=== PATIENT | female | born 1940 | race Caucasian/White ===

== ENCOUNTER → 2017-09-04 | Outpatient (CLI) | payer MEDICARE, BC ==
--- NOTE | 2017-09-04 13:26 | ECHOF ---
Referral Reason:Aortic Stenosis I35.0 MEASUREMENTS -------- HEIGHT: 154.9 cm WEIGHT: 95.3 kg BP: 173/75 RVIDd: 3.5 cm (< 3.3) IVSd: 1.4 cm (0.6 - 1.1) LVIDd: 3.6 cm (3.9 - 5.3) LVPWd: 1.4 cm (0.6 - 1.1) IVSs: 1.6 cm LVIDs: 2.7 cm LVPWs: 1.8 cm LA Diam: 3.4 cm (2.7 - 3.8) LAESV Index (A-L): 23.45 ml/m Ao Diam: 3.3 cm (2.0 - 3.7) AV Cusp: 1.2 cm (1.5 - 2.6) MV EXCURSION: 10.738 mm (> 18.000) MV EF SLOPE: 16 mm/s (70 - 150) EPSS: 0.9 cm MV E Tod: 0.73 m/s MV DecT: 504 ms MV A Tod: 1.23 m/s MV E/A Ratio: 0.59 AV maxP.47 mmHg AV meanP.77 mmHg RAP: 5.00 mmHg RVSP: 23.43 mmHg FINDINGS -------- Sinus rhythm. This was a technically adequate study. The left ventricular size is normal. There is moderate concentric left ventricular hypertrophy. O verall left ventricular systolic function is normal with, an EF between 55 - 60 %. The right ventricle is mildly enlarged. Normal LA size by volume 22+/-6 ml/m2. The right atrium is normal in size. There is moderate aortic valve sclerosis. There is moderate aortic stenosis present. Peak/mean gr adient across the Aortic Valve is 35.47mmHg / 19.77mmHg. The mitral valve leaflets are mildly thickened. Moderate mitral annular calcification present. Mild tricuspid regurgitation present. Right ventricular systolic pressure is normal at < 35 mmHg. There is no pulmonic regurgitation present. The aortic root size is normal. Normal inferior vena cava with normal inspiratory collapse consistent with estimated right atrial pre ssure of 5 mmHg. There is no pericardial effusion. CONCLUSIONS -------- 1. Sinus rhythm. 2. This was a technically adequate study. 3. The left ventricular size is normal. 4. There is moderate concentric left ventricular hypertrophy. 5. Overall left ventricular systolic function is normal with, an EF between 55 - 60 %. 6. The right ventricle is mildly enlarged. 7. Normal LA size by volume 22+/-6 ml/m2. 8. The right atrium is normal in size. 9. There is moderate aortic valve sclerosis. 10. There is moderate aortic stenosis present. 11. Peak/mean gradient across the Aortic Valve is 35.47mmHg / 19.77mmHg. 12. The mitral valve leaflets are mildly thickened. 13. Moderate mitral annular calcification present. 14. Mild tricuspid regurgitation present. 15. Right ventricular systolic pressure is normal at < 35 mmHg. 16. There is no pulmonic regurgitation present. 17. The aortic root size is normal. 18. Normal inferior vena cava with normal inspiratory collapse consistent with estimated right atrial pressure of 5 mmHg. 19. There is no pericardial effusion. CLOTHING EXAMINER: Pooja Clayton RDCS
== END | disposition home or self-care (01) ==
LOC: RADECHMAIN 11:44
PROVIDERS: ATTEND Nurse Practitioner Adult Health
DX: I08.3 Combined rheumatic disorders of mitral, aortic and tricuspid valves (principal)
CPT/HCPCS: 93306

== ENCOUNTER → 2018-10-29 | Outpatient (CLI) | payer MEDICARE, BC ==
--- NOTE | 2018-10-30 17:59 | ECHOF ---
Referral Reason:I35.0 nonrheumatic aortic stenosis MEASUREMENTS -------- HEIGHT: 154.9 cm WEIGHT: 95.3 kg BP: 125/75 RVIDd: 2.9 cm (< 3.3) IVSd: 1.4 cm (0.6 - 1.1) LVIDd: 4.2 cm (3.9 - 5.3) LVPWd: 1.4 cm (0.6 - 1.1) IVSs: 1.8 cm LVIDs: 3.0 cm LVPWs: 1.6 cm LA Diam: 3.2 cm (2.7 - 3.8) LAESV Index (A-L): 31.37 ml/m Ao Diam: 3.4 cm (2.0 - 3.7) AV Cusp: 1.2 cm (1.5 - 2.6) EPSS: 0.7 cm MV E Tod: 1.17 m/s MV DecT: 298 ms MV A Tod: 1.47 m/s MV E/A Ratio: 0.79 AV maxP.48 mmHg AV meanP.59 mmHg RAP: 5.00 mmHg RVSP: 43.00 mmHg MV EF SLOPE: 16.60 mm/s (70 - 150) MV EXCURSION: 0.98 cm (> 18.000) FINDINGS -------- Sinus rhythm. This was a technically adequate study. The left ventricular size is normal. There is moderate concentric left ventricular hypertrophy. O verall left ventricular systolic function is normal with, an EF between 60 - 65 %. The right ventricle is normal in size. Left atrium is mildly dilated by volume. The right atrium is normal in size and function. Aneurysmal septum Aortic valve is trileaflet and is moderately thickened. There is aqtsahlx-vs-zrujum aortic stenosis present. Peak/mean gradient across the valve is 62.48mmHg / 39.59mmHg. The mitral valve leaflets are mildly thickened. Moderate mitral annular calcification present. Mi ld mitral regurgitation is present. Mild tricuspid regurgitation present. There is mild pulmonary hypertension. The right ventricular systolic pressure, as measured by Doppler, is 43.00mmHg. Trace/mild (physiologic) pulmonic regurgitation. The aortic root size is normal. The inferior vena cava was not well visualized. The pericardium is normal. CONCLUSIONS -------- 1. Sinus rhythm. 2. This was a technically adequate study. 3. The left ventricular size is normal. 4. There is moderate concentric left ventricular hypertrophy. 5. Overall left ventricular systolic function is normal with, an EF between 60 - 65 %. 6. The right ventricle is normal in size. 7. Left atrium is mildly dilated by volume. 8. The right atrium is normal in size and function. 9. Aneurysmal septum 10. Aortic valve is trileaflet and is moderately thickened. 11. There is qidompmf-va-koaaiu aortic stenosis present. 12. Peak/mean gradient across the valve is 62.48mmHg / 39.59mmHg. 13. The mitral valve leaflets are mildly thickened. 14. Moderate mitral annular calcification present. 15. Mild mitral regurgitation is present. 16. Mild tricuspid regurgitation present. 17. There is mild pulmonary hypertension. 18. The right ventricular systolic pressure, as measured by Doppler, is 43.00mmHg. 19. Trace/mild (physiologic) pulmonic regurgitation. 20. The aortic root size is normal. 21. The inferior vena cava was not well visualized. 22. The pericardium is normal. AUTOMOTIVE LIGHT MECHANIC: ARPIT Mcdonnell
== END | disposition home or self-care (01) ==
LOC: RADECHMAIN 12:46
PROVIDERS: ATTEND Internal Medicine
DX: I08.3 Combined rheumatic disorders of mitral, aortic and tricuspid valves (principal); I27.20 Pulmonary hypertension, unspecified
CPT/HCPCS: 93306

== ENCOUNTER → 2020-08-21 | Outpatient (CLI) | payer MEDICARE, BC ==
--- NOTE | 2020-08-21 09:47 | CT ---
EXAMINATION TYPE: CT chest wo con DATE OF EXAM: 08/21/2020 COMPARISON: Comparison films are not available at this location. HISTORY: Pulmonary nodules CT DLP: 420.70 mGycm, Automated exposure control for dose reduction was used. CONTRAST: Performed injected with 0 mL of Isovue 300. TECHNIQUE: Axial images were obtained at 5 mm thick sections. Reconstructed images are reviewed on [employer] computer in the coronal plane. FINDINGS: Portion of the thyroid visualized is normal. There is a 0.8 cm nodule in the posterior lateral left lung base. Series 4 image 37. There is a 0.4 cm posterior lateral left lung base nodule. Series 4 image 33. There is a 0.3 cm nodule lateral right midlung. Series 4 image 22 and additional 0.3 cm nodules in th e posterior lateral right lung base same level. There is a 0.3 cm nodule within the lateral right midlung. Series 4 image 21. There is a 0.5 cm nodule lateral left upper lung field. Series 4 image 20. No enlarged mediastinal or hilar adenopathy is evident. The ascending aorta diameter at the level o f the main pulmonary artery is 4.0 cm. The main pulmonary artery diameter at the bifurcation is 3.2 cm. Coronary artery calcification is present. Prior cardiac valve surgery is evident. Limited CT sections are obtained through the upper abdomen. Abdomen is essentially unremarkable. IMPRESSIONS: 1. Multiple bilateral lung nodules. Largest left lung base measuring 0.8 cm. Comparison images are un available to evaluate for interval change nodules.
== END | disposition home or self-care (01) ==
LOC: RADCTMAIN 08:21
PROVIDERS: ATTEND Nurse Practitioner Adult Health
DX: R91.8 Other nonspecific abnormal finding of lung field (principal)
CPT/HCPCS: 71250

== ENCOUNTER → 2021-01-13 | Outpatient (CLI) | payer MEDICARE, BC ==
--- NOTE | 2021-01-13 12:43 | MR ---
EXAMINATION TYPE: MR lumbar spine wo con DATE OF EXAM: 01/13/2021 COMPARISON: NONE HISTORY: LBP, BLE radiculopathy. TECHNIQUE: Multiplanar, multisequence imaging of the lumbar spine is performed without IV contrast. FINDINGS: Sagittal images of the lumbar spine show vertebral body heights to appear satisfactory. The re is grade 1 anterolisthesis L4 on L5. Multilevel disc desiccation. Disc space heights are maintain ed. Fairly moderate multilevel anterior spurring. The conus medullaris is normal in position and sign al extending inferior L1 level. The bone marrow signal intensity is within normal limits. Axial images at T12-L1 levels show broad-based left paracentral disc extrusion extending inferiorly s een best sagittal image 8 up to mid level of the L1 vertebra effacing the anterior thecal sac., Paten t bilateral neural foramina. Axial images at the L1-L2 level show right paracentral/foraminal broad-based disc protrusion with sma ller inferior extrusion component sagittal image 8, this is causing effacement of the anterolateral t hecal sac and right lateral recess. Mild to moderate facet arthropathy and ligament of flavum hypertr ophy bilaterally placing posterior lateral thecal sac. Patent bilateral neural foramina. Axial images at the L2-L3 level show mild to moderate facet arthropathy and ligamentum flavum hypertr ophy. There is mild broad disc bulge with right paracentral disc protrusion component effacing anteri or thecal sac, patent bilateral neural foramina. Axial images at the L3-L4 level shows moderate facet degenerative changes and ligamentum flavum hyper trophy effacing posterolateral thecal sac. There is moderate broad disc bulge with central disc protr usion component effacing the anterior thecal sac. There is dbmz-gp-scxcywyr bilateral neural foramina l narrowing. Axial images at the L4-L5 level show advanced facet arthropathy and ligament flavum hypertrophy effac ing posterior lateral thecal sac. There is spondylolisthesis with broad-based posterior disc protrusi on effacing the anterior thecal sac. Most prominent spinal canal effacement or stenosis is seen at th is level axial image 10. There is mild to moderate bilateral neural foraminal narrowing. Axial images at the L5-S1 level show mild/moderate facet arthropathy bilaterally. Spinal canal is pre served. Mild bilateral neural foraminal narrowing due to mild broad disc bulge. No suspicious retroperitoneal findings. IMPRESSION: Multilevel degenerative changes greatest at L3-L4 and L4-L5 levels as detailed above. Inf erior disc extrusion right T12-L1 level also noted.
== END | disposition home or self-care (01) ==
LOC: RADMRIMAIN 11:20
PROVIDERS: ATTEND Neurological Surgery
DX: M51.16 Intervertebral disc disorders with radiculopathy, lumbar region (principal); M47.26 Other spondylosis with radiculopathy, lumbar region
CPT/HCPCS: 72148

== ENCOUNTER → 2021-04-10 | Outpatient (CLI) | payer MEDICARE, BC ==
[2021-04-10 19:11] LABS: Phosphorus 4.3 mg/dL (2.4-5.1)
[2021-04-10 19:12] LABS: Anion Gap 11.7 mmol/L (10.00-18.00); BUN/Creat Ratio 24.47 Ratio (12.00-20.00); Blood Urea Nitrogen 36.7 mg/dL (9.0-27.0); Calcium 9.3 mg/dL (8.7-10.3); Carbon Dioxide 25.3 mmol/L (20.0-27.5); Magnesium 2.2 mg/dL (1.5-2.4); Non-African American GFR(CKD) 32.8 (60.0-200.0); Potassium 5.1 mmol/L (3.5-5.5)
== END | disposition home or self-care (01) ==
LOC: LABWHC1 12:57
PROVIDERS: ATTEND Nurse Practitioner Acute Care
DX: N17.9 Acute kidney failure, unspecified (principal)
CPT/HCPCS: 36415; 80048; 83735; 84100

== ENCOUNTER → 2021-05-13 | Outpatient (CLI) | payer MEDICARE, BC ==
[2021-05-13 13:06] LABS: Appearance,Urine Turbid (Clear); Bacteria,Urine Many /hpf; Bilirubin,Urine Negative (Negative); Blood,Urine Moderate (Negative); Color,Urine Yellow; Glucose,Urine (UA) Negative (Negative); Ketones,Urine Negative (Negative); Leukocyte Esterase,Urine Large (Negative); Mucus,Urine Occasional /hpf; Nitrite,Urine Negative (Negative); PH, Urine 5.5 (5.0-8.0); Protein,Urine 2+ (Negative); RBC,Urine 16 /hpf (0-5); Urobilinogen,Urine <2.0 mg/dL (<2.0); WBC,Urine >182 /hpf (0-5)
[2021-05-13 13:09] LABS: Specific Gravity,Urine 1.015 (1.001-1.035)
[2021-05-13 14:45] LABS: Basophils # (A) 0.12 X 10*3/uL (0.00-0.10); Eosinophils # (A) 0.04 X 10*3/uL (0.04-0.35); Eosinophils % (A) 0.3 %; HCT 29.7 % (37.2-46.3); Lymphocytes # (A) 1.76 X 10*3/uL (0.90-5.00); MCH 29.8 pg (27.0-32.0); MCHC 30.3 g/dL (32.0-37.0); MCV 98.3 fL (80.0-97.0); Mean Platelet Volume 11.7 fL (9.5-12.2); Monocytes # (A) 0.78 X 10*3/uL (0.20-1.00); Monocytes % (A) 6.2 %; Neutrophils # (A) 9.68 X 10*3/uL (1.80-7.70); Neutrophils % (A) 77.1 %; Platelet Count 359 X 10*3/uL (140-440); RBC 3.02 X 10*6/uL (4.10-5.20); RDW 16.1 % (11.5-14.5); WBC 12.56 X 10*3/uL (4.50-10.00)
[2021-05-13 15:17] LABS: Creatinine,Urine Random 101.5 mg/dL; Protein/Creatinine Ratio,Urine 1.163
[2021-05-13 16:11] LABS: % Iron Saturation 14.71 (12.00-45.00); Anion Gap 13.1 mmol/L (10.00-18.00); BUN/Creat Ratio 15.47 Ratio (12.00-20.00); Blood Urea Nitrogen 37.9 mg/dL (9.0-27.0); Calcium 9.1 mg/dL (8.7-10.3); Carbon Dioxide 20.9 mmol/L (20.0-27.5); Magnesium 2.2 mg/dL (1.5-2.4); Non-African American GFR(CKD) 18.1 (60.0-200.0); Phosphorus 4.6 mg/dL (2.4-5.1)
== END | disposition home or self-care (01) ==
LOC: LABWHC1 10:48
PROVIDERS: ATTEND Nurse Practitioner Acute Care
DX: E11.22 Type 2 diabetes mellitus with diabetic chronic kidney disease (principal); N39.0 Urinary tract infection, site not specified; R80.9 Proteinuria, unspecified; D64.9 Anemia, unspecified; N18.9 Chronic kidney disease, unspecified; N17.9 Acute kidney failure, unspecified
CPT/HCPCS: 36415; 80048; 81001; 82043; 82570; 82728; 83036; 83540; 83550; 83735; 84100; 84156; 85025; 87086

== ENCOUNTER 2021-06-19 00:14 | Inpatient (IN) | payer MEDICARE, BC ==
[2021-06-19] MEDS ORDERED: SODIUM CHLORIDE 0.9% 1,000 ML IV STA (00:47)
--- NOTE | 2021-06-19 01:31 | ED ---
Weakness HPI - General Chief complaint: Weakness Stated complaint: Weakness Time Seen by Provider: 06/19/21 00:37 Source: patient, EMS Mode of arrival: EMS Limitations: no limitations - History of Present Illness Initial comments: This is a pleasant 81-year-old female who comes to the ER complaining of bilateral leg weakness and generalized weakness. Patient states she went to get up today and just could not get up due to general weakness. Patient states she previously has had some electrolyte abnormalities. Patient also had a urinalysi s which was done 1 week ago. States she was called by the physician told that she had a urinary tract infection. However she has not taken any antibiotics for this. No headache, no fever or chills, no changes in vision or hearing, no sore throat or difficulty with speech, no neck pain, no chest pain or shortness of breath, no abdominal pain, no nausea or vomiting, no changes in urination or bowel movements, no numbness or tingling, no extremity pain, no skin rashes or lesions. Patient states when he she went to get up she sort of slid out of her chair. She denies falling. There was no head or neck injury. No blood thinners. MD Complaint: generalized weakness - Related Data Allergies Allergy/AdvReac Type Severity Reaction Status Date / Time Penicillins Allergy Swelling Verified 06/19/21 01:45 Sulfa (Sulfonamide Allergy Unknown Verified 06/19/21 01:45 Antibiotics) clindamycin AdvReac Nausea & Verified 06/19/21 01:45 Vomiting Review of Systems ROS Statement: Those systems with pertinent positive or pertinent negative responses have been documented in the HPI. ROS Other: All systems not noted in ROS Statement are negative. Past Medical History Past Medical History: Unable to Obtain History of Any Multi-Drug Resistant Organisms: None Reported Past Surgical History: Unable to Obtain Past Psychological History: No Psychological Hx Reported Smoking Status: Never smoker Past Alcohol Use History: None Reported Past Drug Use History: None Reported General Exam - General Exam Comments Initial Comments: Deconditioned appearing 81-year-old female in no significant distress. Patient does not appear to be ill or toxic Limitations: no limitations General appearance: alert, in no apparent distress Head exam: Present: atraumatic, normocephalic, normal inspection Eye exam: Present: normal appearance, PERRL, EOMI. Absent: scleral icterus, c onjunctival injection, periorbital swelling ENT exam: Present: normal exam, mucous membranes moist Neck exam: Present: normal inspection. Absent: tenderness, meningismus, lymphadenopathy Respiratory exam: Present: normal lung sounds bilaterally. Absent: respiratory distress, wheezes, rales, rhonchi, stridor Cardiovascular Exam: Present: regular rate, normal rhythm, normal heart sounds. Absent: systolic murmur, diastolic murmur, rubs, gallop, clicks GI/Abdominal exam: Present: soft, normal bowel sounds. Absent: distended, tenderness, guarding, rebound, rigid Extremities exam: Present: normal inspection, full ROM, normal capillary refill, other (No bony point tenderness. No erythema. No break in skin integrity. Patient does have notable fasciculations involving the quadriceps muscle on the left.). Absent: tenderness, pedal edema, joint swelling, calf tenderness Back exam: Present: normal inspection Neurological exam: Present: alert, oriented X3, CN II-XII intact, other (No focal neurologic deficits. GCS is 15). Absent: altered, motor sensory deficit, reflexes normal Psychiatric exam: Present: normal affect, normal mood. Absent: depressed, agitated, anxious Skin exam: Present: warm, dry, intact, normal color. Absent: rash Course Vital Signs 06/19/21 06/19/21 00:31 01:41 Temperature 98.1 F Pulse Rate 62 60 Respiratory 16 16 Rate Blood Pressure 133/113 122/45 O2 Sat by Pulse 100 99 Oximetry - Reevaluation(s) Reevaluation #1: 06/19/21 03:24 Medical record is reviewed Symptoms are essentially unchanged, EKG shows left bundle-branch block with wide QRS, QTC of 506, potassium was slightly hemolyzed but was 9.0. I did order repeat. Given EKG findings we decided to go ahead and treat the hyperkalemia., Patient also showed evidence of urinary tract infection with acute on chronic renal failure. Patient is informed of results and questions answered Patient in no distress 06/19/21 03:28 EKG Findings - EKG Comments: EKG Findings:: EKG done at 12:24 AM and read by the ED attending physician reveals sinus rhythm with a first-degree AV block. Left axis deviation. Left bundle branch block. Ventricular rate of 62. MI interval 267 ms. QRS duration 218 ms. QTC 506. No evidence of concordance. Medical Decision Making - Medical Decision Making The case was discussed in detail with ED attending physician. Presentation, findings, treatment plan discussed in detail. Patient fondly hyperkalemic. Slight hemolysis but did have EKG changes consistent with hyperkalemia. Discussed with ED attending physician who also assessed the patient. Patient given 7.5 mg of albuterol, 6 units of regular insulin, 1 amp of dextrose 50, 1 g of calcium gluconate. Case was discussed in detail with Dr. Spain the application support consultant. Patient will be admitted to [facility] for ICU admission. - Lab Data Result diagrams: 06/19/21 01:36 06/19/21 01:36 Lab Results 06/19/21 06/19/21 06/19/21 Range/Units 01:36 01:36 01:36 WBC 16.4 H (3.8-10.6) k/uL RBC 2.31 L (3.80-5.40) m/uL Hgb 7.2 L (11.4-16.0) gm/dL Hct 22.8 L (34.0-46.0) % MCV 98.7 (80.0-100.0) fL MCH 31.1 (25.0-35.0) pg MCHC 31.5 (31.0-37.0) g/dL RDW 16.5 H (11.5-15.5) % Plt Count 346 (150-450) k/uL MPV 9.1 Neutrophils % 87 % Lymphocytes % 7 % Monocytes % 4 % Eosinophils % 1 % Basophils % 0 % Neutrophils # 14.2 H (1.3-7.7) k/uL Lymphocytes # 1.2 (1.0-4.8) k/uL Monocytes # 0.6 (0-1.0) k/uL Eosinophils # 0.2 (0-0.7) k/uL Basophils # 0.1 (0-0.2) k/uL Hypochromasia Moderate Anisocytosis Slight Macrocytosis Slight Sodium 135 L (137-145) mmol/L Potassium 9.0 H* (3.5-5.1) mmol/L Chloride 112 H (98-107) mmol/L Carbon Dioxide 13 L (22-30) mmol/L Anion Gap 10 mmol/L BUN 54 H (7-17) mg/dL Creatinine 3.21 H (0.52-1.04) mg/dL Est GFR (CKD-EPI)AfAm 15 (>60 ml/min/1.73 sqM) Est GFR (CKD-EPI)NonAf 13 (>60 ml/min/1.73 sqM) Glucose 65 L (74-99) mg/dL Plasma Lactic Acid Rolly (0.7-2.0) mmol/L Calcium 8.8 (8.4-10.2) mg/dL Phosphorus 4.2 (2.5-4.5) mg/dL Magnesium 1.8 (1.6-2.3) mg/dL Total Bilirubin 0.7 (0.2-1.3) mg/dL AST 33 (14-36) U/L ALT 12 (4-34) U/L Alkaline Phosphatase 82 (38-126) U/L Troponin I (0.000-0.034) ng/mL Total Protein 7.5 (6.3-8.2) g/dL Albumin 3.4 L (3.5-5.0) g/dL TSH 1.080 (0.465-4.680) mIU/L Urine Color Yellow Urine Appearance Turbid H (Clear) Urine pH 5.5 (5.0-8.0) Ur Specific [place] 1.020 (1.001-1.035) Urine Protein 2+ H (Negative) Urine Glucose (UA) Negative (Negative) Urine Ketones Negative (Negative) Urine Blood Moderate H (Negative) Urine Nitrite Negative (Negative) Urine Bilirubin Negative (Negative) Urine Urobilinogen <2.0 (<2.0) mg/dL Ur Leukocyte Esterase Large H (Negative) Urine RBC 27 H (0-5) /hpf Urine WBC >182 H (0-5) /hpf Urine WBC Clumps Moderate H (None) /hpf Ur Squamous Epith Cells 3 (0-4) /hpf Urine Bacteria Occasional H (None) /hpf 06/19/21 06/19/21 Range/Units 01:36 01:36 WBC (3.8-10.6) k/uL RBC (3.80-5.40) m/uL Hgb (11.4-16.0) gm/dL Hct (34.0-46.0) % MCV (80.0-100.0) fL MCH (25.0-35.0) pg MCHC (31.0-37.0) g/dL RDW (11.5-15.5) % Plt Count (150-450) k/uL MPV Neutrophils % % Lymphocytes % % Monocytes % % Eosinophils % % Basophils % % Neutrophils # (1.3-7.7) k/uL Lymphocytes # (1.0-4.8) k/uL Monocytes # (0-1.0) k/uL Eosinophils # (0-0.7) k/uL Basophils # (0-0.2) k/uL Hypochromasia Anisocytosis Macrocytosis Sodium (137-145) mmol/L Potassium (3.5-5.1) mmol/L Chloride (98-107) mmol/L Carbon Dioxide (22-30) mmol/L Anion Gap mmol/L BUN (7-17) mg/dL Creatinine (0.52-1.04) mg/dL Est GFR (CKD-EPI)AfAm (>60 ml/min/1.73 sqM) Est GFR (CKD-EPI)NonAf (>60 ml/min/1.73 sqM) Glucose (74-99) mg/dL Plasma Lactic Acid Rolly 1.2 (0.7-2.0) mmol/L Calcium (8.4-10.2) mg/dL Phosphorus (2.5-4.5) mg/dL Magnesium (1.6-2.3) mg/dL Total Bilirubin (0.2-1.3) mg/dL AST (14-36) U/L ALT (4-34) U/L Alkaline Phosphatase (38-126) U/L Troponin I <0.012 (0.000-0.034) ng/mL Total Protein (6.3-8.2) g/dL Albumin (3.5-5.0) g/dL TSH (0.465-4.680) mIU/L Urine Color Urine Appearance (Clear) Urine pH (5.0-8.0) Ur Specific [place] (1.001-1.035) Urine Protein (Negative) Urine Glucose (UA) (Negative) Urine Ketones (Negative) Urine Blood (Negative) Urine Nitrite (Negative) Urine Bilirubin (Negative) Urine Urobilinogen (<2.0) mg/dL Ur Leukocyte Esterase (Negative) Urine RBC (0-5) /hpf Urine WBC (0-5) /hpf Urine WBC Clumps (None) /hpf Ur Squamous Epith Cells (0-4) /hpf Urine Bacteria (None) /hpf Critical Care Time Critical Care Time: Yes (40) Critical Care Time: Evaluation of the patient, multiple re-evaluations, response to treatments. Evaluation diagnostics. Discussion with ED attending physician, discussion with the ICU application support consultant, discussion with sound physician group. Multiple interventions for hyperkalemia, urinary tract infection Disposition Clinical Impression: Acute hyperkalemia, Generalized weakness, Urinary tract infection, Acute kidney injury Disposition: ADMITTED IP TO THIS HOSP Referrals: Basia Chinchilla, KERLINE [Primary Care Provider] - 1-2 days Time of Disposition: 03:26
--- NOTE | 2021-06-19 01:48 | XR ---
EXAMINATION TYPE: XR chest 1V portable DATE OF EXAM: 06/19/2021 COMPARISON: NONE HISTORY: Weakness TECHNIQUE: Single view FINDINGS: Heart is enlarged. There is no heart failure. Lungs are clear of consolidation. There are n o hilar masses. There are chest leads. IMPRESSION: Mild cardiomegaly. No acute lung disease.
[2021-06-19 02:13] LABS: Anisocytosis Slight; Basophils # (A) 0.1 k/uL (0-0.2); Basophils % (A) 0 %; Eosinophils # (A) 0.2 k/uL (0-0.7); Eosinophils % (A) 1 %; HCT 22.8 % (34.0-46.0); HGB 7.2 gm/dL (11.4-16.0); Hypochromasia Moderate; Lymphocytes # (A) 1.2 k/uL (1.0-4.8); Lymphocytes % (A) 7 %; MCH 31.1 pg (25.0-35.0); MCHC 31.5 g/dL (31.0-37.0); MCV 98.7 fL (80.0-100.0); Macrocytosis Slight; Mean Platelet Volume 9.1; Monocytes # (A) 0.6 k/uL (0-1.0); Monocytes % (A) 4 %; Neutrophils # (A) 14.2 k/uL (1.3-7.7); Neutrophils % (A) 87 %; Platelet Count 346 k/uL (150-450); RBC 2.31 m/uL (3.80-5.40); RDW 16.5 % (11.5-15.5); WBC 16.4 k/uL (3.8-10.6)
[2021-06-19 02:30] LABS: ALT 12 U/L (4-34); AST 33 U/L (14-36); African American GFR (CKD) 15 (>60 ml/min/1.73 sqM); Albumin 3.4 g/dL (3.5-5.0); Alkaline Phosphatase 82 U/L (38-126); Anion Gap 10 mmol/L; Blood Urea Nitrogen 54 mg/dL (7-17); Calcium 8.8 mg/dL (8.4-10.2); Carbon Dioxide 13 mmol/L (22-30); Chloride 112 mmol/L (98-107); Glucose 65 mg/dL (74-99); Magnesium 1.8 mg/dL (1.6-2.3); Non-African American GFR(CKD) 13 (>60 ml/min/1.73 sqM); Phosphorus 4.2 mg/dL (2.5-4.5); Sodium 135 mmol/L (137-145); Total Bilirubin 0.7 mg/dL (0.2-1.3); Total Protein 7.5 g/dL (6.3-8.2)
[2021-06-19 02:44] LABS: Appearance,Urine Turbid (Clear); Bacteria,Urine Occasional /hpf; Bilirubin,Urine Negative (Negative); Blood,Urine Moderate (Negative); Color,Urine Yellow; Glucose,Urine (UA) Negative (Negative); Ketones,Urine Negative (Negative); Leukocyte Esterase,Urine Large (Negative); Nitrite,Urine Negative (Negative); PH, Urine 5.5 (5.0-8.0); Protein,Urine 2+ (Negative); RBC,Urine 27 /hpf (0-5); Squamous Epithelial Cell,Urine 3 /hpf (0-4); Urobilinogen,Urine <2.0 mg/dL (<2.0); WBC,Urine >182 /hpf (0-5)
[2021-06-19] MEDS ORDERED: ALBUTEROL NEBULIZED 2.5 MG/3 ML INHALATION STA (03:17)
[2021-06-19] MEDS ORDERED: CALCIUM GLUCONATE 1 GM in SODIUM CHLORIDE 0.9% 100 ML IVPB ONE ×2 (03:19→08:30)
[2021-06-19] MEDS ORDERED: DEXTROSE 50% SYRINGE 50 ML IVP STA ×2 (03:21→16:59)
[2021-06-19] MEDS ORDERED: INSULIN REGULAR 100 UNIT/ML VIAL (IV) IV ONE ×4 (03:22→16:59)
[2021-06-19] MEDS ORDERED: ALBUTEROL NEB (CONC) 2.5 MG/0.5 ML INHALATION STA (03:23)
[2021-06-19] MEDS ORDERED: ACETAMINOPHEN TAB 325 MG TAB PO PRN (03:48)
[2021-06-19] MEDS ORDERED: NALOXONE 0.4 MG/ML 1 ML VIAL IV PRN (03:48)
[2021-06-19 03:58] LABS: Partial Thromboplastin Time 21.7 sec (22.0-30.0); Prothrombin Time 11.2 sec (9.0-12.0)
[2021-06-19] MEDS ORDERED: SODIUM CHLORIDE 0.9% 1,000 ML IV SCH (04:00)
[2021-06-19 04:38] LABS: Glucose,Whole Blood 191 mg/dL (75-99)
[2021-06-19 06:31] LABS: Glucose,Whole Blood 61 mg/dL (75-99)
[2021-06-19 07:02] LABS: Glucose,Whole Blood 80 mg/dL (75-99)
--- NOTE | 2021-06-19 07:06 | P.HPIM ---
History of Present Illness H&P Date: 06/19/21 Chief Complaint: general weakness , leg weakness 81-year-old female with diabetes mellitus, hypertension Patient comes in with complaint of bilateral leg weakness and difficulty walking and generalized weakness of 2 days' duration. Patient lives alone and she has a walker but rarely uses however over the past couple days she's been using a lot as she wasn't feeling safe on her feet. She was also feeling nauseous all day and vomited once or twice denies any GI bleeding denies any melena. She denies being on any blood thinners she takes some aspirin. She denies any abdominal pain however she does report some urinary changes with incontinence and dysuria she was diagnosed with UTI about a week ago however she was not started on antibiotics. Otherwise she feels fine she denies any fevers or chills denies any chest pain or trouble breathing denies any diarrhea denies any focal neuro deficits In the ED she was found to have hyperkalemia with EKG changes showing quite QRS. Was given potassium lowering cocktails and kept on cardiac monitoring. She was also found to have acute anemia however again patient denies any GI bleeding. Occult blood testing was negative Blood work also showed acute kidney injury She does report having electrolyte imbalance abnormalities in the past however she denies any recent changes in her medications Patient will be admitted to the ICU Review of Systems Pertinent positives as noted in HPI. All other systems were reviewed and are negative Past Medical History Past Medical History: Diabetes Mellitus, Hypertension Additional Past Medical History / Comment(s): Type2, hypothyroidism, chronic back/neck pain, fibromyalgia History of Any Multi-Drug Resistant Organisms: None Reported Past Surgical History: Unable to Obtain Additional Past Surgical History / Comment(s): neck surgery, c-spine surgery, heart valve replacement Smoking Status: Never smoker - Past Family History Family Family Medical History: No Reported History Medications and Allergies Allergies Allergy/AdvReac Type Severity Reaction Status Date / Time Penicillins Allergy Swelling Verified 06/19/21 01:45 Sulfa (Sulfonamide Allergy Unknown Verified 06/19/21 01:45 Antibiotics) clindamycin AdvReac Nausea & Verified 06/19/21 01:45 Vomiting Physical Exam Vitals: Vital Signs Temp Pulse Resp BP Pulse Ox 06/19/21 05:00 84 16 114/64 99 06/19/21 01:41 60 16 122/45 99 06/19/21 00:31 98.1 F 62 16 133/113 100 Intake and Output 06/18/21 06/18/21 06/19/21 14:59 22:59 06:59 Other: Weight 86.183 kg Constitutional: No acute distress, conversant, pleasant Eyes: Anicteric sclerae, moist conjunctiva, Pupils equal round reactive to light ENMT: NC/AT Oropharynx clear, no erythema, or exudates Neck: Supple, no masses, or JVD No carotid bruits No thyromegaly Lungs: Clear to auscultation Clear to percussion Normal respiratory effort, no accessory muscle use Cardiovascular: Heart regular in rate and rhythm, Systolic murmurs, no gallops, or rubs No peripheral edema Abdominal: Soft Nontender, no guarding, rebound or rigidity Abdomen moving with respiration Normoactive bowel sounds No hepatomegaly, No splenomegaly No palpable mass No abdominal wall hernia noted Skin: Normal temperature, tone, texture, turgor No induration No subcutaneous nodules No rash, lesions No ulcers Extremities: No digital cyanosis No clubbing Pedal pulses intact and symmetrical Radial pulses intact and symmetrical No calf tenderness Psychiatric: Alert and oriented to person, place and time Appropriate affect fair judgement Neuro Muscles Strength 3-4/5 in all 4 extremities Sensation to light touch grossly present throughout Cranial nerves II-XII grossly intact Lymphatics: no palpable cervical or supraclavicular , or inguinal lymph nodes Results CBC & Chem 7: 06/19/21 01:36 06/19/21 03:43 Labs: Abnormal Lab Results - Last 24 Hours (Table) 06/19/21 06/19/21 06/19/21 Range/Units 01:36 01:36 01:36 WBC 16.4 H (3.8-10.6) k/uL RBC 2.31 L (3.80-5.40) m/uL Hgb 7.2 L (11.4-16.0) gm/dL Hct 22.8 L (34.0-46.0) % RDW 16.5 H (11.5-15.5) % Neutrophils # 14.2 H (1.3-7.7) k/uL APTT (22.0-30.0) sec Sodium 135 L (137-145) mmol/L Potassium 9.0 H* (3.5-5.1) mmol/L Chloride 112 H (98-107) mmol/L Carbon Dioxide 13 L (22-30) mmol/L BUN 54 H (7-17) mg/dL Creatinine 3.21 H (0.52-1.04) mg/dL Glucose 65 L (74-99) mg/dL POC Glucose (mg/dL) (75-99) mg/dL Albumin 3.4 L (3.5-5.0) g/dL Urine Appearance Turbid H (Clear) Urine Protein 2+ H (Negative) Urine Blood Moderate H (Negative) Ur Leukocyte Esterase Large H (Negative) Urine RBC 27 H (0-5) /hpf Urine WBC >182 H (0-5) /hpf Urine WBC Clumps Moderate H (None) /hpf Urine Bacteria Occasional H (None) /hpf 06/19/21 06/19/21 06/19/21 Range/Units 02:40 03:43 04:36 WBC (3.8-10.6) k/uL RBC (3.80-5.40) m/uL Hgb (11.4-16.0) gm/dL Hct (34.0-46.0) % RDW (11.5-15.5) % Neutrophils # (1.3-7.7) k/uL APTT 21.7 L (22.0-30.0) sec Sodium (137-145) mmol/L Potassium 8.4 H* (3.5-5.1) mmol/L Chloride (98-107) mmol/L Carbon Dioxide (22-30) mmol/L BUN (7-17) mg/dL Creatinine (0.52-1.04) mg/dL Glucose (74-99) mg/dL POC Glucose (mg/dL) 191 H (75-99) mg/dL Albumin (3.5-5.0) g/dL Urine Appearance (Clear) Urine Protein (Negative) Urine Blood (Negative) Ur Leukocyte Esterase (Negative) Urine RBC (0-5) /hpf Urine WBC (0-5) /hpf Urine WBC Clumps (None) /hpf Urine Bacteria (None) /hpf 06/19/21 Range/Units 06:29 WBC (3.8-10.6) k/uL RBC (3.80-5.40) m/uL Hgb (11.4-16.0) gm/dL Hct (34.0-46.0) % RDW (11.5-15.5) % Neutrophils # (1.3-7.7) k/uL APTT (22.0-30.0) sec Sodium (137-145) mmol/L Potassium (3.5-5.1) mmol/L Chloride (98-107) mmol/L Carbon Dioxide (22-30) mmol/L BUN (7-17) mg/dL Creatinine (0.52-1.04) mg/dL Glucose (74-99) mg/dL POC Glucose (mg/dL) 61 L (75-99) mg/dL Albumin (3.5-5.0) g/dL Urine Appearance (Clear) Urine Protein (Negative) Urine Blood (Negative) Ur Leukocyte Esterase (Negative) Urine RBC (0-5) /hpf Urine WBC (0-5) /hpf Urine WBC Clumps (None) /hpf Urine Bacteria (None) /hpf Assessment and Plan Assessment: Severe symptomatic hyperkalemia Acute kidney injury Acute anemia Urinary tract infection Plan Patient was given potassium lowering medications given calcium gluconate, albuterol inhaler, insulin plus D50 Follow-up potassium level Admission to the ICU Cardiac monitoring nephrology consult ICU consult IVF hydration with normal saline , avoid nephro toxic meds monitor urine output initiated on antibiotics , rocephine follow up cultures fall precautions denies GI bleeding , monitor hemoglobin closely chronic conditions DM , insulin sliding scale verify home meds full code mechanical DVT PPX , due to acute anemia anticipated length of stay > 2 midnights
[2021-06-19 07:19] LABS: Anisocytosis Slight; Basophils % (A) 0 %; Eosinophils # (A) 0.1 k/uL (0-0.7); Eosinophils % (A) 1 %; HGB 7.2 gm/dL (11.4-16.0); Hypochromasia Marked; Lymphocytes # (A) 1.4 k/uL (1.0-4.8); Lymphocytes % (A) 10 %; MCH 31.5 pg (25.0-35.0); MCHC 30.2 g/dL (31.0-37.0); Macrocytosis Moderate; Mean Platelet Volume 8.6; Monocytes # (A) 0.6 k/uL (0-1.0); Monocytes % (A) 4 %; Neutrophils # (A) 11.9 k/uL (1.3-7.7); Neutrophils % (A) 83 %; Platelet Count 363 k/uL (150-450); RDW 16.8 % (11.5-15.5); WBC 14.4 k/uL (3.8-10.6)
[2021-06-19 07:33] LABS: Calcium 8.9 mg/dL (8.4-10.2); Magnesium 1.8 mg/dL (1.6-2.3)
[2021-06-19 07:37] LABS: MCV 104.2 fL (80.0-100.0); Potassium 7.7 mmol/L (3.5-5.1)
[2021-06-19] MEDS ORDERED: FUROSEMIDE 10 MG/ML 10 ML VIAL IV STA (08:08)
[2021-06-19] MEDS ORDERED: DEXTROSE 50% SYRINGE 50 ML IVP ONE ×2 (08:21→11:18)
[2021-06-19] MEDS ORDERED: SODIUM POLYSTYRENE SULFONATE 15 GM/60 ML BOTTLE PO ONE (08:30)
--- NOTE | 2021-06-19 10:07 | US ---
EXAMINATION TYPE: US kidneys/renal and bladder DATE OF EXAM: 06/19/2021 COMPARISON: NONE CLINICAL HISTORY: rf. Renal failure. EXAM MEASUREMENTS: Right Kidney: 11.3 x 6.2 x 6.0 cm Left Kidney: 11.5 x 7.1 x 6.6 cm Right Kidney: Prominent calyces and renal pelvis. Left Kidney: Lobulated kidney vrs mass Bladder: Distended Bilateral Jets seen: Only left jet seen at this time. There is no evidence for hydronephrosis at this point in time. No nephrolithiasis is seen. No philip s are identified. The urinary bladder is anechoic. Prominent calces and renal pelvis seen in right kidney. Left kidney appears lobulated. Only seen left bladder jet at this time. IMPRESSION: 1. Mild right-sided hydronephrosis is difficult to exclude. 2. Lobulated left kidney.
[2021-06-19] MEDS: DEXTROSE 5% IN WATER 1,000 ML with SODIUM BICARB (1 MEQ/ML) 150 ML IV SCH ×2 (10:10→22:42)
--- NOTE | 2021-06-19 10:21 | P.CNPUL ---
History of Present Illness Consult date: 06/19/21 Requesting physician: Tacos Bunch Reason for consult: other (Critical care management) Chief complaint: Generalized weakness, inability to walk History of present illness: This is a very pleasant 81-year-old female patient who follows with Basia Chinchilla as her primary care provider. She has a history of diabetes mellitus, hypertension, hyperlipidemia, gastroesophageal reflux disease, hypothyroidism. She was recently found to have a urinary tract infection but was unable to start her antibiotics. She presented to the emergency room early this morning with progressive weakness, unable to stand. Slipped out of her chair. No reported injuries. She was found to have acute renal failure with significant hyperkalemia. Initial potassium 9.0, BUN 54, creatinine 3.21. Bicarb 13. White count 16.4. Hemoglobin 7.2. Mckenzie virus not detected. She was treated for her hyperkalemia and admitted to the intensive care unit for closer monitoring. She is seen today in the ICU in consultation. She is currently resting comfortably in bed. Awake and alert in no acute distress. She does remain quite weak. EKG revealed sinus rhythm with first-degree AV block, left bundle branch block with tenting T waves. Chest x-ray revealed mild cardiomegaly. No acute pulmonary process. Ultrasound of the abdomen and bladder are pending. Normal saline running 130 ML's per hour. She's been afebrile. Maintaining good O2 saturations in the 90s on room air. Urinalysis positive for moderate blood. Moderate WBCs. Turbid in color. 2+ protein. Occasional bacteria. She's been initiated on ceftriaxone. Bicarb drip has been ordered per nephrology. See recent labs reveal white count 14.4. Hemoglobin 7.2. Sodium 138. Potassium 7.7. Chloride 1:15. Bicarb 15. BUN 52. Creatinine 3.19. Glucose 80. Troponin negative. TSH 1.080. Stool for occult blood was negative. Review of Systems REVIEW OF SYSTEMS: CONSTITUTIONAL: Positive for generalized weakness, inability to stand. Denies any recent significant weight loss or weight gain. EYES: Denies change in vision. EARS, NOSE, MOUTH, THROAT: Denies headaches, denies sore throat. CARDIOVASCULAR: Denies chest pain, palpitations or syncopal episodes. RESPIRATORY: Denies shortness of breath, cough, congestion or hemoptysis. GASTROINTESTINAL: Denies change in appetite, denies abdominal pain GENITOURINARY: Denies hematuria, denies infections. MUSKULOSKELETAL: Denies pain, denies swelling. INTEGUMENTARY: Denies rash, denies eczema. NEUROLOGICAL: Denies recent memory loss, no recent seizure activity. PSYCHIATRIC: Denies anxiety, denies depression. HEMATOLOGIC/LYMPHATIC: Denies anemia, denies enlarged lymph nodes. Past Medical History Past Medical History: Diabetes Mellitus, Hypertension Additional Past Medical History / Comment(s): Type2, hypothyroidism, chronic back/neck pain, fibromyalgia History of Any Multi-Drug Resistant Organisms: None Reported Past Surgical History: Unable to Obtain Additional Past Surgical History / Comment(s): neck surgery, c-spine surgery, heart valve replacement Past Anesthesia/Blood Transfusion Reactions: No Reported Reaction Smoking Status: Never smoker - Past Family History Family Family Medical History: No Reported History Medications and Allergies Home Medications Medication Instructions Recorded Confirmed Type Albuterol Inhaler [Ventolin Hfa 2 puff INHALATION RT-Q4H PRN 06/19/21 06/19/21 History Inhaler] Aspirin EC [Ecotrin Low Dose] 81 mg PO DAILY 06/19/21 06/19/21 History Baclofen [Lioresal] 10 mg PO HS PRN 06/19/21 06/19/21 History Dulaglutide [Trulicity] 1.5 mg SQ Q7D 06/19/21 06/19/21 History Ferrous Sulfate [Feosol] 325 mg PO DAILY 06/19/21 06/19/21 History Furosemide [Lasix] 20 mg PO DAILY PRN 06/19/21 06/19/21 History HYDROcodone/APAP 7.5-325MG [[place] 1 tab PO Q8H PRN 06/19/21 06/19/21 History 7.5-325] Levothyroxine Sodium [Synthroid] 88 mcg PO DAILY 06/19/21 06/19/21 History Metoprolol Succinate [Toprol XL] 25 mg PO HS 06/19/21 06/19/21 History Omeprazole 40 mg PO DAILY 06/19/21 06/19/21 History Pregabalin [Lyrica] 50 mg PO HS 06/19/21 06/19/21 History Tolterodine Tartrate [Detrol LA] 4 mg PO DAILY 06/19/21 06/19/21 History amLODIPine [Norvasc] 2.5 mg PO DAILY 06/19/21 06/19/21 History glipiZIDE XL [Glucotrol Xl] 5 mg PO DAILY 06/19/21 06/19/21 History lisinopriL [Zestril] 2.5 mg PO DAILY 06/19/21 06/19/21 History Allergies Allergy/AdvReac Type Severity Reaction Status Date / Time Penicillins Allergy Swelling Verified 06/19/21 07:28 Sulfa (Sulfonamide Allergy Unknown Verified 06/19/21 07:28 Antibiotics) clindamycin AdvReac Nausea & Verified 06/19/21 07:28 Vomiting Physical Exam Vitals: Vital Signs Temp Pulse Resp BP Pulse Ox 06/19/21 07:00 74 20 113/42 97 06/19/21 06:00 98.9 F 67 12 119/47 96 06/19/21 05:00 84 16 114/64 99 06/19/21 01:41 60 16 122/45 99 06/19/21 00:31 98.1 F 62 16 133/113 100 Intake and Output 06/18/21 06/19/21 06/19/21 22:59 06:59 14:59 Intake Total 75 Balance 75 Intake: IV 75 Sodium Chloride 0.9% 1, 75 000 ml @ 75 mls/hr IV . [id number] [facility] Rx#:[id number] Other: # Voids 1 Weight 86.183 kg GENERAL EXAM: Alert, oriented, very pleasant 81-year-old female, on room air, comfortable in no apparent distress. HEAD: Normocephalic. EYES: Normal reaction of pupils, equal size. NOSE: Clear with pink turbinates. THROAT: No erythema or exudates. NECK: No masses, no JVD. CHEST: No chest wall deformity. LUNGS: Equal air entry with no crackles, wheeze, rhonchi or dullness. CVS: S1 and S2 normal with no audible murmur, regular rhythm. ABDOMEN: No hepatosplenomegaly, normal bowel sounds, no guarding or rigidity. SPINE: No scoliosis or deformity SKIN: No rashes CENTRAL NERVOUS SYSTEM: No focal deficits, tone is normal in all 4 extremities. EXTREMITIES: There is no peripheral edema. No clubbing, no cyanosis. Peripheral pulses are intact. Results - Laboratory Findings CBC and BMP: 06/19/21 06:11 06/19/21 06:11 PT/INR, D-dimer PT 11.2 sec (9.0-12.0) 06/19/21 02:40 INR 1.0 (<1.2) 06/19/21 02:40 Abnormal lab findings: Abnormal Labs 06/19/21 06/19/21 06/19/21 01:36 01:36 01:36 WBC 16.4 H RBC 2.31 L Hgb 7.2 L Hct 22.8 L MCV MCHC RDW 16.5 H Neutrophils # 14.2 H APTT Sodium 135 L Potassium 9.0 H* Chloride 112 H Carbon Dioxide 13 L BUN 54 H Creatinine 3.21 H Glucose 65 L POC Glucose (mg/dL) Albumin 3.4 L Urine Appearance Turbid H Urine Protein 2+ H Urine Blood Moderate H Ur Leukocyte Esterase Large H Urine RBC 27 H Urine WBC >182 H Urine WBC Clumps Moderate H Urine Bacteria Occasional H 06/19/21 06/19/21 06/19/21 02:40 03:43 04:36 WBC RBC Hgb Hct MCV MCHC RDW Neutrophils # APTT 21.7 L Sodium Potassium 8.4 H* Chloride Carbon Dioxide BUN Creatinine Glucose POC Glucose (mg/dL) 191 H Albumin Urine Appearance Urine Protein Urine Blood Ur Leukocyte Esterase Urine RBC Urine WBC Urine WBC Clumps Urine Bacteria 06/19/21 06/19/21 06/19/21 06:11 06:11 06:29 WBC 14.4 H RBC 2.30 L Hgb 7.2 L Hct 24.0 L MCV 104.2 H D MCHC 30.2 L RDW 16.8 H Neutrophils # 11.9 H APTT Sodium Potassium 7.7 H* Chloride 115 H Carbon Dioxide 15 L BUN 52 H Creatinine 3.19 H Glucose 48 L* POC Glucose (mg/dL) 61 L Albumin Urine Appearance Urine Protein Urine Blood Ur Leukocyte Esterase Urine RBC Urine WBC Urine WBC Clumps Urine Bacteria - Diagnostic Findings Chest x-ray: image reviewed Assessment and Plan Assessment: 1 Generalized weakness, fatigue secondary to acute renal failure with hyperka lemia 2 Acute renal failure suspect secondary to UTI and dehydration 3 Hyperkalemia secondary to above 4 Metabolic acidosis secondary to above 5 Anemia suspect secondary to above, stool occult blood negative 6 Urinary tract infection, cultures pending, currently on ceftriaxone 7 Diabetes mellitus 8 Hypertension 9 Hypothyroidism 10 Gastroesophageal reflux disease Plan: The patient was seen and evaluated Chest x-ray, labs reviewed Bicarb drip has been ordered Ultrasound of the bladder pending Continue antibiotics Correct electrolyte imbalance Continue to monitor electrolytes Once potassium is corrected down to 5.5 we'll transfer out of the ICU today DO NOT RESUSCITATE/DO NOT INTUBATE CODE STATUS per patient request We will continue to follow and make further recommendations based on her clinical status I have personally seen and examined the patient, performed the documentation and the assessment and plan as written. Number of minutes spent on the visit: 20.
--- NOTE | 2021-06-19 11:08 | P.NPCON ---
History of Present Illness - Reason for Consult hyperkalemia - History of Present Illness Patient is a 81-year-old female with history of diabetes and hypertension. She is admitted to the hospital with complaints of increased weakness and dizziness. Apparently patient was diagnosed with a UTI a few days ago at her primary care physician's office but she did not start with the antibiotics and continued to get progressively weak. She therefore came in to the hospital. Potassium was noted to be 9 mg/L on admission. Patient has received IV treatment for the potassium and it is now down to 6.9. Patient has had decent urine output. No obvious GI bleed Patient was on Zestril. No NSAIDs noted. Blood pressure has been mostly around 113-1 20 mmHg systolic. Review of Systems As per HPI other systems negative Past Medical History Past Medical History: Diabetes Mellitus, Hypertension Additional Past Medical History / Comment(s): Type2, hypothyroidism, chronic back/neck pain, fibromyalgia History of Any Multi-Drug Resistant Organisms: None Reported Past Surgical History: Unable to Obtain Additional Past Surgical History / Comment(s): neck surgery, c-spine surgery, heart valve replacement Past Anesthesia/Blood Transfusion Reactions: No Reported Reaction Smoking Status: Never smoker - Past Family History Family Family Medical History: No Reported History Medications and Allergies Home Medications Medication Instructions Recorded Confirmed Type Albuterol Inhaler [Ventolin Hfa 2 puff INHALATION RT-Q4H PRN 06/19/21 06/19/21 History Inhaler] Aspirin EC [Ecotrin Low Dose] 81 mg PO DAILY 06/19/21 06/19/21 History Baclofen [Lioresal] 10 mg PO HS PRN 06/19/21 06/19/21 History Dulaglutide [Trulicity] 1.5 mg SQ Q7D 06/19/21 06/19/21 History Ferrous Sulfate [Feosol] 325 mg PO DAILY 06/19/21 06/19/21 History Furosemide [Lasix] 20 mg PO DAILY PRN 06/19/21 06/19/21 History HYDROcodone/APAP 7.5-325MG [[place] 1 tab PO Q8H PRN 06/19/21 06/19/21 History 7.5-325] Levothyroxine Sodium [Synthroid] 88 mcg PO DAILY 06/19/21 06/19/21 History Metoprolol Succinate [Toprol XL] 25 mg PO HS 06/19/21 06/19/21 History Omeprazole 40 mg PO DAILY 06/19/21 06/19/21 History Pregabalin [Lyrica] 50 mg PO HS 06/19/21 06/19/21 History Tolterodine Tartrate [Detrol LA] 4 mg PO DAILY 06/19/21 06/19/21 History amLODIPine [Norvasc] 2.5 mg PO DAILY 06/19/21 06/19/21 History glipiZIDE XL [Glucotrol Xl] 5 mg PO DAILY 06/19/21 06/19/21 History lisinopriL [Zestril] 2.5 mg PO DAILY 06/19/21 06/19/21 History Allergies Allergy/AdvReac Type Severity Reaction Status Date / Time Penicillins Allergy Swelling Verified 06/19/21 07:28 Sulfa (Sulfonamide Allergy Unknown Verified 06/19/21 07:28 Antibiotics) clindamycin AdvReac Nausea & Verified 06/19/21 07:28 Vomiting Physical Exam Vitals: Vital Signs Temp Pulse Resp BP Pulse Ox 06/19/21 10:00 73 32 H 113/56 98 06/19/21 09:00 65 30 H 96 06/19/21 08:59 66 31 H 95 06/19/21 07:00 74 20 113/42 97 06/19/21 06:00 98.9 F 67 12 119/47 96 06/19/21 05:00 84 16 114/64 99 06/19/21 01:41 60 16 122/45 99 06/19/21 00:31 98.1 F 62 16 133/113 100 Intake and Output 06/18/21 06/19/21 06/19/21 22:59 06:59 14:59 Intake Total 565 Output Total 250 Balance 315 Intake: IV 465 Sodium Chloride 0.9% 1, 465 000 ml @ 75 mls/hr IV . [id number] [facility] Rx#:[id number] Intake, IV Titration 100 Amount Dextrose 5% in Water 1, 100 000 ml @ 100 mls/hr IV . [id number] [facility] with Sodium Bicarb (1 Meq/ml) 150 ml Rx#:[id number] Output: Urine 250 Other: # Voids 1 Weight 86.183 kg Patient is comfortable. She is sleeping but arousable. Not in any acute distress Examination of the heart S1 and S2 Examination lungs bilateral breath sounds are heard Abdomen is soft nontender Examination lower extremity shows no evidence of edema [employer] exam grossly intact. Patient is occasionally confused Results - Lab Results Most recent lab results Calcium 8.9 mg/dL (8.4-10.2) 06/19/21 06:11 Phosphorus 4.2 mg/dL (2.5-4.5) 06/19/21 01:36 Magnesium 1.8 mg/dL (1.6-2.3) 06/19/21 06:11 06/19/21 06:11 06/19/21 09:47 Assessment and Plan Assessment: 1. Hyperkalemia associated with acute kidney injury. Hemoglobin is low therefore underlying GI bleed is a consideration as well. JESICA inhibitor's currently on hold. Potassium level is improving. I will hold off on dialysis for now unless serum potassium does not continue to decrease further 2. Acute kidney injury mostly prerenal, nonoliguric previous creatinine 2.5 on 05/13/2021 and 1.1-1.5 in March 2021 ultrasound shows mild right hydronephrosis. UA is suggestive of UTI 3. 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 Pyuria, started on antibiotics. Urine culture is pending 5. Rule out obstructive uropathy. Ultrasound shows mild right hydronephrosis and possible mass left kidney. I will check a computed tomography scan of the abdomen and pelvis. Suggest Natarajan catheter placement 6. Anemia rule out GI bleed check iron profile 7. Metabolic acidosis, non-gap associated with acute kidney injury Plan: Start IV bicarb Place Natarajan catheter Check CT of the abdomen and pelvis without IV contrast Repeat potassium in about 4 hours IV Lasix 1 Repeat IV treatment of hyperkalemia. Avoid Kayexalate due to risk of colon ne crosis. Can use [employer] Check iron profile and stool for occult blood Thank you for the consultation we'll continue to follow the patient with you during her hospitalization
[2021-06-19] MEDS ORDERED: SODIUM BICARB 8.4% 50 ML SYR (1 MEQ/ML) IV ONE (11:18)
[2021-06-19 12:19] LABS: Glucose,Whole Blood 112 mg/dL (75-99)
--- NOTE | 2021-06-19 13:34 | CT ---
EXAMINATION TYPE: CT abdomen pelvis wo con DATE OF EXAM: 06/19/2021 COMPARISON: Ultrasound dated 06/19/2021 HISTORY: Hydronephrosis, renal mass CT DLP: 868.1 mGycm Automated exposure control for dose reduction was used. TECHNIQUE: Helical acquisition of images was performed from the lung bases through the pelvis. No IV contrast administration. FINDINGS: LUNG BASES: Bilateral basal subsegmental pulmonary atelectasis and reticulations. Suspected cardiomeg roxana. LIVER/GB: Enlarged liver with nodular outline suggestive of hepatic cirrhosis, please correlate with liver function tests and hepatic viral serology. No definite hepatic focal lesion by this nonenhanced CT scan. Unremarkable gallbladder. PANCREAS: Atrophic without definite lesion SPLEEN: Enlarged measuring 13.9 cm. No definite splenic focal lesion. ADRENALS: Right adrenal adenoma measuring 15mm. Unremarkable left adrenal. KIDNEYS: Lobulated outline of the left kidney with a focal cortical defect likely representing sequel a of previous infection/infarct. No definite left renal lesion identified by this nonenhanced CT scan . Right perinephric fat stranding with dilated right renal collecting system and to a lesser extent t he right ureter without definite distal obstructing radiodense stone. Associated apparent urothelial thickening on the right side, which may suggest associated infection. Questionable tiny 1 mm nonobstr ucting calculus at the lower pole of the right kidney. Air and Natarajan catheter are seen within the gal lbladder which also demonstrates slight wall thickening and perivesical fat stranding. No left-sided hydronephrosis. FREE AIR: No free air is visualized ADENOPATHY: No pathologically enlarged lymph nodes. REPRODUCTIVE ORGANS: Previous hysterectomy. No gross adnexal mass. OSSEOUS STRUCTURES: Degenerative changes of the lower thoracic and lumbar spine. Grade 1 anterolisth esis of L4 over L5. Bilateral L4-5 and L5-S1 facet osteoarthropathy. Degenerative changes of the sacr oiliac joints. BOWEL: Motion artifacts in the right side of the abdomen. No evidence of bowel obstruction. Fecal lo ading of the colon with mild colonic wall thickening. OTHER: Arterial atherosclerotic calcifications. No sizable ascites. IMPRESSION: 1. Lobulated outline of the left kidney with possible sequela of previous infarct/infection. No gross left renal mass yet cannot be excluded by this nonenhanced CT scan. 2. Right-sided hydroureter and hydronephrosis with right perinephric and right perinephric fat strand ing and urothelial thickening. No distal obstructing radiodense stone. This could be related to a rec ently passed stone, distal ureteric stricture or a radiolucent stone. Recommend clinical correlation, correlation with renal function tests and urinalysis results. Associated infection or cystitis canno t be excluded. Please note that a subtle urothelial lesion in the urinary bladder cannot be excluded by this CT scan. 3. Suspected cirrhotic hepatic changes and mild splenomegaly, please correlate with liver function te sts and hepatic viral serology. Other incidental findings as described above.
[2021-06-19 17:30] LABS: Glucose,Whole Blood 82 mg/dL (75-99)
[2021-06-19 20:30] LABS: Glucose,Whole Blood 78 mg/dL (75-99)
[2021-06-20] MEDS ORDERED: FUROSEMIDE 10 MG/ML 10 ML VIAL IV STA (00:37)
[2021-06-20] MEDS ORDERED: SODIUM ZIRCONIUM CYCLOSILICATE 10 GM PACKET PO ONE (00:37)
[2021-06-20 02:48] LABS: Glucose,Whole Blood 114 mg/dL (75-99)
[2021-06-20] MEDS: DEXTROSE 5% IN WATER 1,000 ML with SODIUM BICARB (1 MEQ/ML) 150 ML IV SCH ×2 (02:53→15:08)
[2021-06-20 06:23] LABS: Anisocytosis Slight; Basophils # (A) 0.1 k/uL (0-0.2); Basophils % (A) 0 %; Eosinophils # (A) 0.1 k/uL (0-0.7); Eosinophils % (A) 1 %; HGB 7.6 gm/dL (11.4-16.0); Hypochromasia Slight; Lymphocytes # (A) 1.7 k/uL (1.0-4.8); Lymphocytes % (A) 13 %; MCH 30.6 pg (25.0-35.0); MCHC 31.6 g/dL (31.0-37.0); Macrocytosis Slight; Mean Platelet Volume 8.7; Monocytes # (A) 0.5 k/uL (0-1.0); Monocytes % (A) 4 %; Neutrophils # (A) 10.2 k/uL (1.3-7.7); Neutrophils % (A) 79 %; Platelet Count 293 k/uL (150-450); RBC 2.47 m/uL (3.80-5.40); RDW 16.9 % (11.5-15.5); WBC 12.9 k/uL (3.8-10.6)
[2021-06-20 06:26] LABS: MCV 96.9 fL (80.0-100.0)
[2021-06-20 06:35] LABS: Glucose,Whole Blood 128 mg/dL (75-99)
[2021-06-20 06:53] LABS: Calcium 8.7 mg/dL (8.4-10.2); Potassium 4.9 mmol/L (3.5-5.1)
--- NOTE | 2021-06-20 08:36 | P.PN ---
Subjective Progress Note Date: 06/20/21 This is a very pleasant 81-year-old female patient who follows with Basia Chinchilla as her primary care provider. She has a history of diabetes mellitus, hypertension, hyperlipidemia, gastroesophageal reflux disease, hypothyroidism. She was recently found to have a urinary tract infection but was unable to start her antibiotics. She presented to the emergency room early this morning with progressive weakness, unable to stand. Slipped out of her chair. No reported injuries. She was found to have acute renal failure with significant hyperkalemia. Initial potassium 9.0, BUN 54, creatinine 3.21. Bicarb 13. White count 16.4. Hemoglobin 7.2. Mckenzie virus not detected. She was treated for her hyperkalemia and admitted to the intensive care unit for closer monitoring. She is seen today in the ICU in consultation. She is currently resting comfortably in bed. Awake and alert in no acute distress. She does remain quite weak. EKG revealed sinus rhythm with first-degree AV block, left bundle branch block with tenting T waves. Chest x-ray revealed mild cardiomegaly. No acute pulmonary process. Ultrasound of the abdomen and bladder are pending. Normal saline running 130 ML's per hour. She's been afebrile. Maintaining good O2 saturations in the 90s on room air. Urinalysis positive for moderate blood. Moderate WBCs. Turbid in color. 2+ protein. Occasional bacteria. She's been initiated on ceftriaxone. Bicarb drip has been ordered per nephrology. See recent labs reveal white count 14.4. Hemoglobin 7.2. Sodium 138. Potassium 7.7. Chloride 1:15. Bicarb 15. BUN 52. Creatinine 3.19. Glucose 80. Troponin negative. TSH 1.080. Stool for occult blood was negative. The patient is seen today 06/20/2021 in follow-up in the intensive care unit. He is currently resting quite comfortably in bed. Awake and alert in no acute distress. She did have some issues with confusion throughout the night. She had tried to get out of bed. She is more alert and oriented this morning. She is just hoping to go home. She is remaining in sinus rhythm. No arrhythmias. Her potassium is corrected to 4.9. Sodium 137. BUN 49. Creatinine 2.87. Glucose 117. White count 12.9. Hemoglobin 7.6. Platelets 293. She remains on D5W with 3 A of bicarb at 100 ML's per hour. Maintaining good O2 saturations in the 90s on room air. She did receive Lasix 60 mg IVP 1 earlier this morning. CAT scan of the abdomen and pelvis revealed a lobulated outline of the left kidney with possible sequela of previous infarct/infection. No gross left renal mass Cannot be excluded. Right sided hydroureter and hydronephrosis with right perinephric and right perinephric fat stranding in the urethra feel thickening. No distal obstructing radiodense stone. This could be related to a recently passed stone, distal ureter stricture or a radiolucent stone. Associated infection or cystitis cannot be excluded. Suspect cirrhotic hepatic changes and mild splenomegaly. Blood cultures reveal no growth. Urine culture is pending. She is can continued on ceftriaxone. Objective - Vital Signs Vital signs: Vital Signs Temp 99.0 F 06/20/21 04:00 Pulse 91 06/20/21 07:00 Resp 20 06/20/21 07:00 BP 111/89 06/20/21 07:00 Pulse Ox 97 06/20/21 07:00 Intake & Output 06/19/21 06/20/21 06/20/21 18:59 06:59 18:59 Intake Total 1535 1200 100 Output Total 1800 1945 125 Balance -265 -745 -25 Weight 83.4 kg Intake: IV 465 Sodium Chloride 0.9% 1, 465 000 ml @ 75 mls/hr IV . [id number] RAY Rx#:[id number] Intake, IV Titration 950 1200 100 Amount Dextrose 5% in Water 1, 900 1200 100 000 ml @ 100 mls/hr IV . [id number] RAY with Sodium Bicarb (1 Meq/ml) 150 ml Rx#:[id number] cefTRIAXone 1 gm In 50 Sodium Chloride 0.9% 50 ml @ 100 mls/hr IVPB Q24H RAY Rx#:[id number] Tube Feeding 120 Output: Urine 1800 194 125 Other: Voiding Method Indwelling Catheter Indwelling Catheter Indwelling Catheter # Voids 1 - Exam GENERAL EXAM: Alert, very pleasant 81-year-old female, on room air, comfortable in no apparent distress. HEAD: Normocephalic. EYES: Normal reaction of pupils, equal size. NOSE: Clear with pink turbinates. THROAT: No erythema or exudates. NECK: No masses, no JVD. CHEST: No chest wall deformity. LUNGS: Equal air entry with no crackles, wheeze, rhonchi or dullness. CVS: S1 and S2 normal with no audible murmur, regular rhythm. ABDOMEN: No hepatosplenomegaly, normal bowel sounds, no guarding or rigidity. SPINE: No scoliosis or deformity SKIN: No rashes CENTRAL NERVOUS SYSTEM: No focal deficits, tone is normal in all 4 extremities. EXTREMITIES: There is no peripheral edema. No clubbing, no cyanosis. Peripheral pulses are intact. - Labs CBC & Chem 7: 06/20/21 05:37 06/20/21 05:37 Labs: Abnormal Lab Results - Last 24 Hours (Table) 06/19/21 06/19/21 06/19/21 Range/Units 09:47 12:17 14:58 WBC (3.8-10.6) k/uL RBC (3.80-5.40) m/uL Hgb (11.4-16.0) gm/dL Hct (34.0-46.0) % RDW (11.5-15.5) % Neutrophils # (1.3-7.7) k/uL Potassium 6.9 H* 6.3 H* (3.5-5.1) mmol/L BUN (7-17) mg/dL Creatinine (0.52-1.04) mg/dL Glucose (74-99) mg/dL POC Glucose (mg/dL) 112 H (75-99) mg/dL 06/19/21 06/20/21 06/20/21 Range/Units 21:49 02:47 05:37 WBC 12.9 H (3.8-10.6) k/uL RBC 2.47 L (3.80-5.40) m/uL Hgb 7.6 L (11.4-16.0) gm/dL Hct 24.0 L (34.0-46.0) % RDW 16.9 H (11.5-15.5) % Neutrophils # 10.2 H (1.3-7.7) k/uL Potassium 6.0 H (3.5-5.1) mmol/L BUN (7-17) mg/dL Creatinine (0.52-1.04) mg/dL Glucose (74-99) mg/dL POC Glucose (mg/dL) 114 H (75-99) mg/dL 06/20/21 06/20/21 Range/Units 05:37 06:33 WBC (3.8-10.6) k/uL RBC (3.80-5.40) m/uL Hgb (11.4-16.0) gm/dL Hct (34.0-46.0) % RDW (11.5-15.5) % Neutrophils # (1.3-7.7) k/uL Potassium (3.5-5.1) mmol/L BUN 49 H (7-17) mg/dL Creatinine 2.87 H (0.52-1.04) mg/dL Glucose 117 H (74-99) mg/dL POC Glucose (mg/dL) 128 H (75-99) mg/dL Microbiology - Last 24 Hours (Table) 06/19/21 03:45 Blood Culture - Preliminary Blood No Growth after 24 hours 06/19/21 03:30 Blood Culture - Preliminary Blood No Growth after 24 hours 06/19/21 01:36 Urine Culture - Preliminary Urine,Voided Assessment and Plan Assessment: 1 Generalized weakness, fatigue secondary to acute renal failure with hyperkalemia 2 Acute renal failure suspect secondary to UTI and dehydration, improving current creatinine 2.87 3 Hyperkalemia secondary to above, improving current potassium 4.9 4 Metabolic acidosis secondary to above, recovered 5 Anemia suspect secondary to above, stool occult blood negative, current hemoglobin 7.6 6 Urinary tract infection, cultures pending, currently on ceftriaxone 7 Diabetes mellitus 8 Hypertension 9 Hypothyroidism 10 Gastroesophageal reflux disease Plan: The patient was seen and evaluated Computed tomography scan of the abdomen, labs reviewed Continue antibiotics The patient could be transferred out of the ICU today DO NOT RESUSCITATE/DO NOT INTUBATE CODE STATUS per patient request We will continue to follow and make further recommendations based on her clinical status I have personally seen and examined the patient, performed the documentation and the assessment and plan as written. Number of minutes spent on the visit: 10.
[2021-06-20 10:12] VITALS: BMI 34.7
--- NOTE | 2021-06-20 11:08 | P.PN ---
Subjective Patient is seen for follow-up for acute kidney injury and hyperkalemia. Serum potassium has improved to 4.9 and serum creatinine is also slightly better at 2.8 from 3.2 on initial admission. Patient is maintained on IV fluids. She is currently off of the JESICA inhibitor's. No active GI bleeding noted. Patient is lethargic. She had been confused on and off. Not eating much. Good urine output noted. 3.74 L over 24 hours Objective - Vital Signs Vital signs: Vital Signs Temp 99.0 F 06/20/21 04:00 Pulse 91 06/20/21 07:00 Resp 20 06/20/21 07:00 BP 111/89 06/20/21 07:00 Pulse Ox 97 06/20/21 07:00 Intake & Output 06/19/21 06/20/21 06/20/21 18:59 06:59 18:59 Intake Total 1535 1200 100 Output Total 1800 1945 125 Balance -265 -745 -25 Weight 83.4 kg 83.4 kg Intake: IV 465 Sodium Chloride 0.9% 1, 465 000 ml @ 75 mls/hr IV . [id number] RAY Rx#:[id number] Intake, IV Titration 950 1200 100 Amount Dextrose 5% in Water 1, 900 1200 100 000 ml @ 100 mls/hr IV . [id number] RAY with Sodium Bicarb (1 Meq/ml) 150 ml Rx#:[id number] cefTRIAXone 1 gm In 50 Sodium Chloride 0.9% 50 ml @ 100 mls/hr IVPB Q24H RAY Rx#:[id number] Tube Feeding 120 Output: Urine 1800 1945 125 Other: Voiding Method Indwelling Catheter Indwelling Catheter Indwelling Catheter # Voids 1 - Exam Patient is awake comfortable not in any acute distress. She is appropriate in answering questions appropriately. Examination of the heart S1 and S2 Examination lungs bilateral breath sounds are heard Abdomen is soft nontender Examination of lower extremities shows no significant edema. [place] [employer] exam g rossly intact - Labs CBC & Chem 7: 06/20/21 05:37 06/20/21 05:37 Labs: Abnormal Lab Results - Last 24 Hours (Table) 06/19/21 06/19/21 06/19/21 Range/Units 12:17 14:58 21:49 WBC (3.8-10.6) k/uL RBC (3.80-5.40) m/uL Hgb (11.4-16.0) gm/dL Hct (34.0-46.0) % RDW (11.5-15.5) % Neutrophils # (1.3-7.7) k/uL Potassium 6.3 H* 6.0 H (3.5-5.1) mmol/L BUN (7-17) mg/dL Creatinine (0.52-1.04) mg/dL Glucose (74-99) mg/dL POC Glucose (mg/dL) 112 H (75-99) mg/dL 06/20/21 06/20/21 06/20/21 Range/Units 02:47 05:37 05:37 WBC 12.9 H (3.8-10.6) k/uL RBC 2.47 L (3.80-5.40) m/uL Hgb 7.6 L (11.4-16.0) gm/dL Hct 24.0 L (34.0-46.0) % RDW 16.9 H (11.5-15.5) % Neutrophils # 10.2 H (1.3-7.7) k/uL Potassium (3.5-5.1) mmol/L BUN 49 H (7-17) mg/dL Creatinine 2.87 H (0.52-1.04) mg/dL Glucose 117 H (74-99) mg/dL POC Glucose (mg/dL) 114 H (75-99) mg/dL 06/20/21 Range/Units 06:33 WBC (3.8-10.6) k/uL RBC (3.80-5.40) m/uL Hgb (11.4-16.0) gm/dL Hct (34.0-46.0) % RDW (11.5-15.5) % Neutrophils # (1.3-7.7) k/uL Potassium (3.5-5.1) mmol/L BUN (7-17) mg/dL Creatinine (0.52-1.04) mg/dL Glucose (74-99) mg/dL POC Glucose (mg/dL) 128 H (75-99) mg/dL Microbiology - Last 24 Hours (Table) 06/19/21 03:45 Blood Culture - Preliminary Blood No Growth after 24 hours 06/19/21 03:30 Blood Culture - Preliminary Blood No Growth after 24 hours 06/19/21 01:36 Urine Culture - Preliminary Urine,Voided Assessment and Plan Assessment: 1. Hyperkalemia associated with acute kidney injury. Hemoglobin is low therefore underlying GI bleed is a consideration as well. JESICA inhibitor's currently on hold. Potassium level is improving. 2. Acute kidney injury mostly prerenal, nonoliguric previous creatinine 2.5 on 05/13/2021 and 1.1-1.5 in March 2021. Ultrasound shows mild right hydronephrosis. UA is suggestive of UTI 3. 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 Pyuria, started on antibiotics. Urine culture is pending 5. Rule out obstructive uropathy. Ultrasound shows mild right hydronephrosis and possible mass left kidney. I will check a computed tomography scan of the abdomen and pelvis. Suggest Natarajan catheter placement 6. Anemia rule out GI bleed check iron profile 7. Metabolic acidosis, non-gap associated with acute kidney injury Plan: DC IV bicarb Switch to Ringer lactate and 100 mL an hour Increase oral intake Continue to hold off on JESICA inhibitor's Follow-up on urine cultures Continue with Natarajan catheter
--- NOTE | 2021-06-20 11:14 | P.PN ---
Subjective Patient was examined at bedside today not complaining of any new symptomatology. Resting comfortably. Case discussed with RN. Natarajan catheter in place. Objective - Vital Signs Vital signs: Vital Signs Temp 99.0 F 06/20/21 04:00 Pulse 96 06/20/21 11:00 Resp 17 06/20/21 11:00 BP 113/45 06/20/21 11:00 Pulse Ox 95 06/20/21 11:00 Intake & Output 06/19/21 06/20/21 06/20/21 18:59 06:59 18:59 Intake Total 1535 1200 100 Output Total 1800 194 125 Balance -265 -745 -25 Weight 83.4 kg 83.4 kg Intake: IV 465 Sodium Chloride 0.9% 1, 465 000 ml @ 75 mls/hr IV . [id number] RAY Rx#:[id number] Intake, IV Titration 950 1200 100 Amount Dextrose 5% in Water 1, 900 1200 100 000 ml @ 100 mls/hr IV . [id number] RAY with Sodium Bicarb (1 Meq/ml) 150 ml Rx#:[id number] cefTRIAXone 1 gm In 50 Sodium Chloride 0.9% 50 ml @ 100 mls/hr IVPB Q24H RAY Rx#:[id number] Tube Feeding 120 Output: Urine 1800 1944 125 Other: Voiding Method Indwelling Catheter Indwelling Catheter Indwelling Catheter # Voids 1 - Exam Constitutional: No acute distress, conversant, pleasant Eyes: Anicteric sclerae, moist conjunctiva, Pupils equal round reactive to light ENMT: NC/AT Oropharynx clear, no erythema, or exudates Neck: Supple, no masses, or JVD No carotid bruits No thyromegaly Lungs: Clear to auscultation Clear to percussion Normal respiratory effort, no accessory muscle use Cardiovascular: Heart regular in rate and rhythm, Systolic murmurs, no gallops, or rubs No peripheral edema Abdominal: Soft Nontender, no guarding, rebound or rigidity Abdomen moving with respiration Normoactive bowel sounds No hepatomegaly, No splenomegaly No palpable mass No abdominal wall hernia noted Skin: Normal temperature, tone, texture, turgor No induration No subcutaneous nodules No rash, lesions No ulcers Extremities: No digital cyanosis No clubbing Pedal pulses intact and symmetrical Radial pulses intact and symmetrical No calf tenderness Psychiatric: Alert and oriented to person, place and time Appropriate affect fair judgement Neuro Muscles Strength 3-4/5 in all 4 extremities Sensation to light touch grossly present throughout Cranial nerves II-XII grossly intact Lymphatics: no palpable cervical or supraclavicular , or inguinal lymph nodes - Labs CBC & Chem 7: 06/20/21 05:37 06/20/21 05:37 Labs: Abnormal Lab Results - Last 24 Hours (Table) 06/19/21 06/19/21 06/19/21 Range/Units 12:17 14:58 21:49 WBC (3.8-10.6) k/uL RBC (3.80-5.40) m/uL Hgb (11.4-16.0) gm/dL Hct (34.0-46.0) % RDW (11.5-15.5) % Neutrophils # (1.3-7.7) k/uL Potassium 6.3 H* 6.0 H (3.5-5.1) mmol/L BUN (7-17) mg/dL Creatinine (0.52-1.04) mg/dL Glucose (74-99) mg/dL POC Glucose (mg/dL) 112 H (75-99) mg/dL 06/20/21 06/20/21 06/20/21 Range/Units 02:47 05:37 05:37 WBC 12.9 H (3.8-10.6) k/uL RBC 2.47 L (3.80-5.40) m/uL Hgb 7.6 L (11.4-16.0) gm/dL Hct 24.0 L (34.0-46.0) % RDW 16.9 H (11.5-15.5) % Neutrophils # 10.2 H (1.3-7.7) k/uL Potassium (3.5-5.1) mmol/L BUN 49 H (7-17) mg/dL Creatinine 2.87 H (0.52-1.04) mg/dL Glucose 117 H (74-99) mg/dL POC Glucose (mg/dL) 114 H (75-99) mg/dL 06/20/21 Range/Units 06:33 WBC (3.8-10.6) k/uL RBC (3.80-5.40) m/uL Hgb (11.4-16.0) gm/dL Hct (34.0-46.0) % RDW (11.5-15.5) % Neutrophils # (1.3-7.7) k/uL Potassium (3.5-5.1) mmol/L BUN (7-17) mg/dL Creatinine (0.52-1.04) mg/dL Glucose (74-99) mg/dL POC Glucose (mg/dL) 128 H (75-99) mg/dL Microbiology - Last 24 Hours (Table) 06/19/21 03:45 Blood Culture - Preliminary Blood No Growth after 24 hours 06/19/21 03:30 Blood Culture - Preliminary Blood No Growth after 24 hours 06/19/21 01:36 Urine Culture - Preliminary Urine,Voided Assessment and Plan Plan: Assessment: #1 urinary tract infection #2 acute kidney injury possibly prerenal #3 severe hyperkalemia-resolved #4 diabetes mellitus Plan: -Admit to ICU level of care for close monitoring -Aspiration/fall precaution -Hyperkalemia resolved continue to monitor electrolytes -Creatinine level slowly trending down currently 2.87 -CT abdomen and pelvis ordered by nephrology reviewed. Showing right perinephric and perinephric fat stranding. There suspected possible cirrhotic hepatic changes. -Continue Natarajan catheter and monitor urine output -Continue with IV Rocephin and monitor for urine cultures -DVT prophylaxis SCDs for now we will initiate DVT prophylaxis if hemoglobin stable. If Okay with consultants
[2021-06-20 11:17] LABS: Glucose,Whole Blood 158 mg/dL (75-99)
[2021-06-20] MEDS: LACTATED RINGERS 1,000 ML IV SCH ×2 (11:18→21:58)
[2021-06-20 16:04] LABS: Glucose,Whole Blood 201 mg/dL (75-99)
[2021-06-20] MEDS: HYDROcodone/APAP 7.5-325MG 1 EACH TAB PO PRN (17:13)
[2021-06-20 20:31] LABS: Glucose,Whole Blood 212 mg/dL (75-99)
[2021-06-20] MEDS: INSULIN ASPART (NovoLOG) 100 UNIT/ML VIAL SQ SCH (21:57)
[2021-06-20] MEDS: METOPROLOL SUCCINATE (ER) 25 MG TAB.ER.24H PO SCH (21:58)
[2021-06-20] MEDS: PREGABALIN 50 MG CAP PO SCH (22:32)
[2021-06-21] MEDS: HYDROcodone/APAP 7.5-325MG 1 EACH TAB PO PRN ×3 (01:52→22:07)
[2021-06-21 02:05] LABS: Glucose,Whole Blood 121 mg/dL (75-99)
[2021-06-21] MEDS: LEVOTHYROXINE 88 MCG TAB PO SCH (05:56)
[2021-06-21 06:55] LABS: Glucose,Whole Blood 116 mg/dL (75-99)
[2021-06-21] MEDS: INSULIN ASPART (NovoLOG) 100 UNIT/ML VIAL SQ SCH ×4 (06:59→22:03)
[2021-06-21] MEDS: amLODIPine 2.5 MG TAB PO SCH (08:06)
[2021-06-21] MEDS: ASPIRIN 81 MG PO SCH (08:06)
[2021-06-21] MEDS: LACTATED RINGERS 1,000 ML IV SCH ×2 (08:06→17:14)
[2021-06-21 10:55] LABS: Anisocytosis Slight; Basophils % (A) 0 %; Eosinophils # (A) 0.3 k/uL (0-0.7); Eosinophils % (A) 2 %; HCT 21.1 % (34.0-46.0); Hypochromasia Slight; Lymphocytes # (A) 1.6 k/uL (1.0-4.8); Lymphocytes % (A) 14 %; MCH 30.7 pg (25.0-35.0); MCV 98.9 fL (80.0-100.0); Macrocytosis Slight; Mean Platelet Volume 8.9; Monocytes # (A) 0.3 k/uL (0-1.0); Monocytes % (A) 3 %; Neutrophils # (A) 8.8 k/uL (1.3-7.7); Neutrophils % (A) 78 %; Platelet Count 262 k/uL (150-450); RBC 2.14 m/uL (3.80-5.40); RDW 16.6 % (11.5-15.5); WBC 11.2 k/uL (3.8-10.6)
[2021-06-21 11:12] LABS: Glucose,Whole Blood 139 mg/dL (75-99)
[2021-06-21 11:32] LABS: African American GFR (CKD) 18 (>60 ml/min/1.73 sqM); Anion Gap 6 mmol/L; Blood Urea Nitrogen 50 mg/dL (7-17); Calcium 7.8 mg/dL (8.4-10.2); Carbon Dioxide 28 mmol/L (22-30); Chloride 102 mmol/L (98-107); Glucose 136 mg/dL (74-99); HGB 6.6 gm/dL (11.4-16.0); Non-African American GFR(CKD) 15 (>60 ml/min/1.73 sqM); Potassium 4.2 mmol/L (3.5-5.1); Sodium 136 mmol/L (137-145)
--- NOTE | 2021-06-21 12:29 | P.PN ---
Subjective Progress Note Date: 06/21/21 Principal diagnosis: Sepsis, urinary tract infection This is a very pleasant 81-year-old female patient who follows with Basia Chinchilla as her primary care provider. She has a history of diabetes mellitus, hypertension, hyperlipidemia, gastroesophageal reflux disease, hypothyroidism. She was recently found to have a urinary tract infection but was unable to start her antibiotics. She presented to the emergency room early this morning with progressive weakness, unable to stand. Slipped out of her chair. No reported injuries. She was found to have acute renal failure with significant hyperkalemia. Initial potassium 9.0, BUN 54, creatinine 3.21. Bicarb 13. White count 16.4. Hemoglobin 7.2. Mckenzie virus not detected. She was treated for her hyperkalemia and admitted to the intensive care unit for closer monitoring. She is seen today in the ICU in consultation. She is currently resting comfortably in bed. Awake and alert in no acute distress. She does r emain quite weak. EKG revealed sinus rhythm with first-degree AV block, left bundle branch block with tenting T waves. Chest x-ray revealed mild cardiomegaly. No acute pulmonary process. Ultrasound of the abdomen and bladder are pending. Normal saline running 130 ML's per hour. She's been afeb rile. Maintaining good O2 saturations in the 90s on room air. Urinalysis positive for moderate blood. Moderate WBCs. Turbid in color. 2+ protein. Occasional bacteria. She's been initiated on ceftriaxone. Bicarb drip has been ordered per nephrology. See recent labs reveal white count 14.4. Hemoglobin 7.2. Sodium 138. Potassium 7.7. Chloride 1:15. Bicarb 15. BUN 52. Creatinine 3.19. Glucose 80. Troponin negative. TSH 1.080. Stool for occult blood was negative. The patient is seen today 06/20/2021 in follow-up in the intensive care unit. He is currently resting quite comfortably in bed. Awake and alert in no acute distress. She did have some issues with confusion throughout the night. She had tried to get out of bed. She is more alert and oriented this morning. She is just hoping to go home. She is remaining in sinus rhythm. No arrhythmias. Her potassium is corrected to 4.9. Sodium 137. BUN 49. Creatinine 2.87. Glucose 117. White count 12.9. Hemoglobin 7.6. Platelets 293. She remains on D5W with 3 A of bicarb at 100 ML's per hour. Maintaining good O2 saturations in the 90s on room air. She did receive Lasix 60 mg IVP 1 earlier this morning. CAT scan of the abdomen and pelvis revealed a lobulated outline of the left kidney with possible sequela of previous infarct/infection. No gross left renal mass Cannot be excluded. Right sided hydroureter and hydronephrosis with right perinephric and right perinephric fat stranding in the urethra feel thickening. No distal obstructing radiodense stone. This could be related to a recently passed stone, distal ureter stricture or a radiolucent stone. Associated infection or cystitis cannot be excluded. Suspect cirrhotic hepatic changes and mild splenomegaly. Blood cultures reveal no growth. Urine culture is pending. She is can continued on ceftriaxone. On 06/21/2021 patient is seen in follow-up on medical surgical floor, she is awake and alert, oriented 3, mentation has significantly improved, vital signs have been stable, patient denies any shortness of breath, room air pulse ox is 97%, hemodynamically blood pressure has been stable. T-max in the last [address] of the abdomen and pelvis was noted, showing right-sided hydroureter and hydronephrosis with right perinephric and right perinephric fat stranding and urothelial thickening without distal obstructing radiodense stone. In the low suspicion for cirrhotic hepatic changes and mild splenomegaly. On admission urinalysis was consistent with acute urinary tract infection and patient remains on IV Rocephin. Urine cultures have shown no growth and blood cultures have shown no growth. Clinically patient states she did have some pressure with urination today, and stated that she is also having trouble with her usual arthritis pain. Today's labs have been reviewed, white blood cell count is 11.2, hemoglobin is 6.6, platelet count is 262, there is no obvious signs of bleeding. Sodium is 136, potassium is 4.2, chloride is 102, CO2 28 within normal limits, BUN is 50, creatinine is 2.82 Objective - Vital Signs Vital signs: Vital Signs Temp 98.4 F 06/21/21 07:38 Pulse 82 06/21/21 07:38 Resp 14 06/21/21 07:38 BP 117/57 06/21/21 07:38 Pulse Ox 97 06/21/21 07:38 Intake & Output 06/20/21 06/21/21 06/21/21 18:59 06:59 18:59 Intake Total 1040 Output Total 825 401 Balance 215 -401 Weight 83.4 kg Intake: Intake, IV Titration 800 Amount Dextrose 5% in Water 1, 400 000 ml @ 100 mls/hr IV . [id number] RAY with Sodium Bicarb (1 Meq/ml) 150 ml Rx#:[id number] Lactated Ringers 1,000 ml 400 @ 100 mls/hr IV .Q10H RAY Rx#:[id number] Oral 240 Output: Urine 825 400 Stool 1 Other: Voiding Method Indwelling Catheter Bedside Commode # Voids 1 1 1 # Bowel Movements 1 1 1 - Exam GENERAL EXAM: Alert, very pleasant 81-year-old white female, sitting up in the recliner, on room air, with a pulse ox of 97% comfortable in no apparent distress. HEAD: Normocephalic/atraumatic. EYES: Normal reaction of pupils, equal size. Conjunctiva pink, sclera white. NOSE: Clear with pink turbinates. THROAT: No erythema or exudates. NECK: No masses, no JVD, no thyroid enlargement, no adenopathy. CHEST: No chest wall deformity. Symmetrical expansion. LUNGS: Equal air entry with no crackles, wheeze, rhonchi or dullness. CVS: Regular rate and rhythm, normal S1 and S2, no gallops, no murmurs, no rubs ABDOMEN: Soft, nontender. No hepatosplenomegaly, normal bowel sounds, no guarding or rigidity. EXTREMITIES: No clubbing, no edema, no cyanosis, 2+ pulses and upper and lower extremities. MUSCULOSKELETAL: Muscle strength and tone normal. SPINE: No scoliosis or deformity SKIN: No rashes CENTRAL NERVOUS SYSTEM: Alert and oriented -3. No focal deficits, tone is normal in all 4 extremities. PSYCHIATRIC: Alert and oriented -3. Appropriate affect. Intact judgment and insight. - Labs CBC & Chem 7: 06/21/21 10:35 06/21/21 10:35 Labs: Abnormal Lab Results - Last 24 Hours (Table) 06/20/21 06/20/21 06/21/21 Range/Units 16:03 20:29 02:04 WBC (3.8-10.6) k/uL RBC (3.80-5.40) m/uL Hgb (11.4-16.0) gm/dL Hct (34.0-46.0) % RDW (11.5-15.5) % Neutrophils # (1.3-7.7) k/uL Sodium (137-145) mmol/L BUN (7-17) mg/dL Creatinine (0.52-1.04) mg/dL Glucose (74-99) mg/dL POC Glucose (mg/dL) 201 H 212 H 121 H (75-99) mg/dL Calcium (8.4-10.2) mg/dL 06/21/21 06/21/21 06/21/21 Range/Units 06:52 10:35 10:35 WBC 11.2 H (3.8-10.6) k/uL RBC 2.14 L (3.80-5.40) m/uL Hgb 6.6 L* (11.4-16.0) gm/dL Hct 21.1 L (34.0-46.0) % RDW 16.6 H (11.5-15.5) % Neutrophils # 8.8 H (1.3-7.7) k/uL Sodium 136 L (137-145) mmol/L BUN 50 H (7-17) mg/dL Creatinine 2.82 H (0.52-1.04) mg/dL Glucose 136 H (74-99) mg/dL POC Glucose (mg/dL) 116 H (75-99) mg/dL Calcium 7.8 L (8.4-10.2) mg/dL 06/21/21 Range/Units 11:11 WBC (3.8-10.6) k/uL RBC (3.80-5.40) m/uL Hgb (11.4-16.0) gm/dL Hct (34.0-46.0) % RDW (11.5-15.5) % Neutrophils # (1.3-7.7) k/uL Sodium (137-145) mmol/L BUN (7-17) mg/dL Creatinine (0.52-1.04) mg/dL Glucose (74-99) mg/dL POC Glucose (mg/dL) 139 H (75-99) mg/dL Calcium (8.4-10.2) mg/dL Microbiology - Last 24 Hours (Table) 06/19/21 03:45 Blood Culture - Preliminary Blood No Growth after 48 hours 06/19/21 03:30 Blood Culture - Preliminary Blood No Growth after 48 hours 06/19/21 01:36 Urine Culture - Final Urine,Voided Assessment and Plan Plan: Assessment: #1. Generalized weakness, fatigue secondary to acute renal failure with hyperkalemia #2. Acute renal failure, related to sepsis, secondary to acute urinary tract infection #3. Chronic kidney disease stage IIIB at baseline #4. Mild right-sided hydronephrosis, with a possible passed renal stone and possible mass left kidney #5. Acute on chronic anemia, no clear evidence of bleeding #6. Altered mental status, related to acute kidney injury, sepsis, acute urinary tract infection, currently improved #7. Acute non-anion gap metabolic acidosis, related to acute kidney injury Plan: Stable from pulmonary perspective Hemodynamically stable All cultures remain negative Mentation has significantly improved Nephrology recommendations Pulmonary/critical care service will sign off and follow on as-needed basis I have personally seen and examined the patient, performed the documentation and the assessment and plan as written. Number of minutes spent on the visit: [10] Time with Patient: Less than 30
[2021-06-21 13:46] LABS: Anisocytosis Slight; HCT 20.2 % (34.0-46.0); Hypochromasia Slight; MCH 31.7 pg (25.0-35.0); MCHC 32.5 g/dL (31.0-37.0); MCV 97.7 fL (80.0-100.0); Macrocytosis Slight; Mean Platelet Volume 9.1; Platelet Count 260 k/uL (150-450); RBC 2.07 m/uL (3.80-5.40); RDW 16.4 % (11.5-15.5); WBC 10.9 k/uL (3.8-10.6)
[2021-06-21 13:51] LABS: HGB 6.6 gm/dL (11.4-16.0)
--- NOTE | 2021-06-21 14:13 | P.PN ---
Subjective Patient is seen for follow-up for acute kidney injury and hyperkalemia. Serum potassium has improved to 4.9 and serum creatinine is also slightly better at 2.8 from 3.2 on initial admission. Patient is maintained on IV fluids. She is currently off of the JESICA inhibitor's. No active GI bleeding noted. Patient is sitting on a bedside chair. She is comfortable awake. Not in any acute distress. Oral intake has improved. She has had good urine output. Objective - Vital Signs Vital signs: Vital Signs Temp 98.4 F 06/21/21 07:38 Pulse 82 06/21/21 07:38 Resp 14 06/21/21 07:38 BP 117/57 06/21/21 07:38 Pulse Ox 97 06/21/21 07:38 Intake & Output 06/20/21 06/21/21 06/21/21 18:59 06:59 18:59 Intake Total 1040 Output Total 825 401 Balance 215 -401 Weight 83.4 kg Intake: Intake, IV Titration 800 Amount Dextrose 5% in Water 1, 400 000 ml @ 100 mls/hr IV . [id number] RAY with Sodium Bicarb (1 Meq/ml) 150 ml Rx#:[id number] Lactated Ringers 1,000 ml 400 @ 100 mls/hr IV .Q10H RAY Rx#:[id number] Oral 240 Output: Urine 825 400 Stool 1 Other: Voiding Method Indwelling Catheter Bedside Commode # Voids 1 1 1 # Bowel Movements 1 1 1 - Exam Patient is awake comfortable not in any acute distress. She is appropriate in answering questions appropriately. Examination of the heart S1 and S2 Examination lungs bilateral breath sounds are heard Abdomen is soft nontender Examination of lower extremities shows no significant edema. [place] [employer] exam grossly intact - Labs CBC & Chem 7: 06/21/21 12:50 06/21/21 10:35 Labs: Abnormal Lab Results - Last 24 Hours (Table) 06/20/21 06/20/21 06/21/21 Range/Units 16:03 20:29 02:04 WBC (3.8-10.6) k/uL RBC (3.80-5.40) m/uL Hgb (11.4-16.0) gm/dL Hct (34.0-46.0) % RDW (11.5-15.5) % Neutrophils # (1.3-7.7) k/uL Sodium (137-145) mmol/L BUN (7-17) mg/dL Creatinine (0.52-1.04) mg/dL Glucose (74-99) mg/dL POC Glucose (mg/dL) 201 H 212 H 121 H (75-99) mg/dL Calcium (8.4-10.2) mg/dL 06/21/21 06/21/21 06/21/21 Range/Units 06:52 10:35 10:35 WBC 11.2 H (3.8-10.6) k/uL RBC 2.14 L (3.80-5.40) m/uL Hgb 6.6 L* (11.4-16.0) gm/dL Hct 21.1 L (34.0-46.0) % RDW 16.6 H (11.5-15.5) % Neutrophils # 8.8 H (1.3-7.7) k/uL Sodium 136 L (137-145) mmol/L BUN 50 H (7-17) mg/dL Creatinine 2.82 H (0.52-1.04) mg/dL Glucose 136 H (74-99) mg/dL POC Glucose (mg/dL) 116 H (75-99) mg/dL Calcium 7.8 L (8.4-10.2) mg/dL 06/21/21 06/21/21 Range/Units 11:11 12:50 WBC 10.9 H (3.8-10.6) k/uL RBC 2.07 L (3.80-5.40) m/uL Hgb 6.6 L* (11.4-16.0) gm/dL Hct 20.2 L (34.0-46.0) % RDW 16.4 H (11.5-15.5) % Neutrophils # (1.3-7.7) k/uL Sodium (137-145) mmol/L BUN (7-17) mg/dL Creatinine (0.52-1.04) mg/dL Glucose (74-99) mg/dL POC Glucose (mg/dL) 139 H (75-99) mg/dL Calcium (8.4-10.2) mg/dL Microbiology - Last 24 Hours (Table) 06/19/21 03:45 Blood Culture - Preliminary Blood No Growth after 48 hours 06/19/21 03:30 Blood Culture - Preliminary Blood No Growth after 48 hours 06/19/21 01:36 Urine Culture - Final Urine,Voided Assessment and Plan Assessment: 1. Hyperkalemia associated with acute kidney injury. Hemoglobin is low therefore underlying GI bleed is a consideration as well. JESICA inhibitor's currently on hold. Potassium level is improving. 2. Acute kidney injury mostly prerenal, nonoliguric previous creatinine 2.5 on 05/13/2021 and 1.1-1.5 in March 2021. Ultrasound shows mild right hydronephrosis. UA is suggestive of UTI 3. 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 Pyuria, started on antibiotics. Urine culture is pending 5. Rule out obstructive uropathy. Ultrasound shows mild right hydronephrosis and possible mass left kidney. CT showed for less in the right pelvis. Status post Natarajan catheter 6. Anemia rule out GI bleed check iron profile 7. Metabolic acidosis, non-gap associated with acute kidney injury Plan: Monitor for urine retention now that catheter is discontinued. Workup for anemia
--- NOTE | 2021-06-21 15:50 | P.PN ---
Subjective Patient was examined at bedside today in good spirits not complaining of any new symptomatology. Case discussed in detail regarding patient's hemoglobin and urinalysis. Continue to monitor creatinine level closely. Objective - Vital Signs Vital signs: Vital Signs Temp 97.6 F 06/21/21 14:00 Pulse 104 H 06/21/21 14:00 Resp 14 06/21/21 14:00 BP 104/52 06/21/21 14:00 Pulse Ox 97 06/21/21 14:00 Intake & Output 06/20/21 06/21/21 06/21/21 18:59 06:59 18:59 Intake Total 1040 Output Total 825 401 Balance 215 -401 Weight 83.4 kg Intake: Intake, IV Titration 800 Amount Dextrose 5% in Water 1, 400 000 ml @ 100 mls/hr IV . [id number] RAY with Sodium Bicarb (1 Meq/ml) 150 ml Rx#:[id number] Lactated Ringers 1,000 ml 400 @ 100 mls/hr IV .Q10H RAY Rx#:[id number] Oral 240 Output: Urine 825 400 Stool 1 Other: Voiding Method Indwelling Catheter Bedside Commode # Voids 1 1 1 # Bowel Movements 1 1 1 - Exam Constitutional: No acute distress, conversant, pleasant Eyes: Anicteric sclerae, moist conjunctiva, Pupils equal round reactive to light ENMT: NC/AT Oropharynx clear, no erythema, or exudates Neck: Supple, no masses, or JVD No carotid bruits No thyromegaly Lungs: Clear to auscultation Clear to percussion Normal respiratory effort, no accessory muscle use Cardiovascular: Heart regular in rate and rhythm, Systolic murmurs, no gallops, or rubs No peripheral edema Abdominal: Soft Nontender, no guarding, rebound or rigidity Abdomen moving with respiration Normoactive bowel sounds No hepatomegaly, No splenomegaly No palpable mass No abdominal wall hernia noted Skin: Normal temperature, tone, texture, turgor No induration No subcutaneous nodules No rash, lesions No ulcers Extremities: No digital cyanosis No clubbing Pedal pulses intact and symmetrical Radial pulses intact and symmetrical No calf tenderness Psychiatric: Alert and oriented to person, place and time Appropriate affect fair judgement Neuro Muscles Strength 3-4/5 in all 4 extremities Sensation to light touch grossly present throughout Cranial nerves II-XII grossly intact Lymphatics: no palpable cervical or supraclavicular , or inguinal lymph nodes - Labs CBC & Chem 7: 06/21/21 12:50 06/21/21 10:35 Labs: Abnormal Lab Results - Last 24 Hours (Table) 06/20/21 06/20/21 06/21/21 Range/Units 16:03 20:29 02:04 WBC (3.8-10.6) k/uL RBC (3.80-5.40) m/uL Hgb (11.4-16.0) gm/dL Hct (34.0-46.0) % RDW (11.5-15.5) % Neutrophils # (1.3-7.7) k/uL Sodium (137-145) mmol/L BUN (7-17) mg/dL Creatinine (0.52-1.04) mg/dL Glucose (74-99) mg/dL POC Glucose (mg/dL) 201 H 212 H 121 H (75-99) mg/dL Calcium (8.4-10.2) mg/dL 06/21/21 06/21/21 06/21/21 Range/Units 06:52 10:35 10:35 WBC 11.2 H (3.8-10.6) k/uL RBC 2.14 L (3.80-5.40) m/uL Hgb 6.6 L* (11.4-16.0) gm/dL Hct 21.1 L (34.0-46.0) % RDW 16.6 H (11.5-15.5) % Neutrophils # 8.8 H (1.3-7.7) k/uL Sodium 136 L (137-145) mmol/L BUN 50 H (7-17) mg/dL Creatinine 2.82 H (0.52-1.04) mg/dL Glucose 136 H (74-99) mg/dL POC Glucose (mg/dL) 116 H (75-99) mg/dL Calcium 7.8 L (8.4-10.2) mg/dL 06/21/21 06/21/21 Range/Units 11:11 12:50 WBC 10.9 H (3.8-10.6) k/uL RBC 2.07 L (3.80-5.40) m/uL Hgb 6.6 L* (11.4-16.0) gm/dL Hct 20.2 L (34.0-46.0) % RDW 16.4 H (11.5-15.5) % Neutrophils # (1.3-7.7) k/uL Sodium (137-145) mmol/L BUN (7-17) mg/dL Creatinine (0.52-1.04) mg/dL Glucose (74-99) mg/dL POC Glucose (mg/dL) 139 H (75-99) mg/dL Calcium (8.4-10.2) mg/dL Microbiology - Last 24 Hours (Table) 06/19/21 03:45 Blood Culture - Preliminary Blood No Growth after 48 hours 06/19/21 03:30 Blood Culture - Preliminary Blood No Growth after 48 hours 06/19/21 01:36 Urine Culture - Final Urine,Voided Assessment and Plan Plan: Assessment: #1 urinary tract infection #2 acute kidney injury possibly prerenal #3 severe hyperkalemia-resolved #4 diabetes mellitus Plan: -Patient has been downgraded to medical floor. -Aspiration/fall precaution -Potassium within normal limits today. -Repeat hemoglobin 6.6 we'll transfuse 1 unit of PRBC. We'll also obtain fecal occult no obvious causes of bleeding noted. -Creatinine level slowly trending down -CT abdomen and pelvis ordered by nephrology reviewed. Showing right perinephric and perinephric fat stranding. There suspected possible cirrhotic hepatic changes. -Continue Natarajan catheter and monitor urine output -Continue with IV Rocephin and monitor for urine cultures -DVT prophylaxis SCDs for now
[2021-06-21 16:48] LABS: Glucose,Whole Blood 136 mg/dL (75-99)
[2021-06-21 21:12] LABS: Glucose,Whole Blood 113 mg/dL (75-99)
[2021-06-21] MEDS: METOPROLOL SUCCINATE (ER) 25 MG TAB.ER.24H PO SCH (22:08)
[2021-06-21] MEDS: PREGABALIN 50 MG CAP PO SCH (22:08)
[2021-06-22 02:26] LABS: Glucose,Whole Blood 93 mg/dL (75-99)
[2021-06-22] MEDS: LACTATED RINGERS 1,000 ML IV SCH ×2 (05:02→13:08)
[2021-06-22 06:51] LABS: Glucose,Whole Blood 99 mg/dL (75-99)
[2021-06-22] MEDS: INSULIN ASPART (NovoLOG) 100 UNIT/ML VIAL SQ SCH ×4 (06:56→22:25)
[2021-06-22] MEDS: LEVOTHYROXINE 88 MCG TAB PO SCH (07:49)
[2021-06-22] MEDS: ASPIRIN 81 MG PO SCH (07:49)
[2021-06-22] MEDS: amLODIPine 2.5 MG TAB PO SCH (07:49)
[2021-06-22 08:59] LABS: African American GFR (CKD) 23.9 (60.0-200.0); Anion Gap 10.5 mmol/L (10.00-18.00); BUN/Creat Ratio 16.45 Ratio (12.00-20.00); Blood Urea Nitrogen 36.2 mg/dL (9.0-27.0); Calcium 8.1 mg/dL (8.7-10.3); Carbon Dioxide 24.5 mmol/L (20.0-27.5); Non-African American GFR(CKD) 20.6 (60.0-200.0)
[2021-06-22] MEDS: HYDROcodone/APAP 7.5-325MG 1 EACH TAB PO PRN ×2 (10:00→19:06)
[2021-06-22 11:09] LABS: Basophils # (A) 0.07 X 10*3/uL (0.00-0.10); Basophils % (A) 0.7 %; Eosinophils # (A) 0.46 X 10*3/uL (0.04-0.35); Eosinophils % (A) 4.7 %; Immature Grans, Automated 2.6 %; Lymphocytes # (A) 1.53 X 10*3/uL (0.90-5.00); Lymphocytes % (A) 15.6 %; Monocytes % (A) 7.2 %; NRBC Per 100 WBC 0.3 /100 WBCS (0.0-0.0); Neutrophils # (A) 6.77 X 10*3/uL (1.80-7.70); Neutrophils % (A) 69.2 %
[2021-06-22 11:12] LABS: HCT 21.4 % (37.2-46.3); HGB 6.6 g/dL (12.0-15.0); Hypochromasia (M) 2+; MCH 29.2 pg (27.0-32.0); MCHC 30.8 g/dL (32.0-37.0); MCV 94.7 fL (80.0-97.0); Mean Platelet Volume 11.7 fL (9.5-12.2); Platelet Count 226 X 10*3/uL (140-440); RBC 2.26 X 10*6/uL (4.10-5.20); WBC 9.78 X 10*3/uL (4.50-10.00)
[2021-06-22 11:53] LABS: Glucose,Whole Blood 119 mg/dL (75-99)
--- NOTE | 2021-06-22 12:44 | P.PN ---
Subjective Patient is seen for follow-up for acute kidney injury and hyperkalemia. Serum and creatinine down to about 2.2 Patient is maintained on IV fluids. She is currently off of the JESICA inhibitor's. No active GI bleeding noted. Patient is sitting on a bedside chair. She is comfortable awake. Not in any acute distress. Oral intake has improved. She has had good urine output. Objective - Vital Signs Vital signs: Vital Signs Temp 98.3 F 06/22/21 07:51 Pulse 80 06/22/21 07:51 Resp 16 06/22/21 07:51 BP 126/57 06/22/21 07:51 Pulse Ox 95 06/22/21 07:51 Intake & Output 06/21/21 06/22/21 06/22/21 18:59 06:59 18:59 Intake Total 0 310 Balance 0 310 Intake: Blood Product 0 310 Rc As-1 Unit 0 310 [id number] Other: Voiding Method External Catheter # Voids 2 6 # Bowel Movements 1 - Exam Patient is awake comfortable not in any acute distress. She is appropriate in answering questions appropriately. Examination of the heart S1 and S2 Examination lungs bilateral breath sounds are heard Abdomen is soft nontender Examination of lower extremities shows no significant edema. [place] [employer] exam grossly intact - Labs CBC & Chem 7: 06/22/21 05:00 06/22/21 04:56 Labs: Abnormal Lab Results - Last 24 Hours (Table) 06/21/21 06/21/21 06/21/21 Range/Units 12:50 12:50 12:50 WBC 10.9 H (3.8-10.6) k/uL RBC 2.07 L (3.80-5.40) m/uL Hgb 6.6 L* (11.4-16.0) gm/dL Hct 20.2 L (34.0-46.0) % MCHC (32.0-37.0) g/dL RDW 16.4 H (11.5-15.5) % Absolute Nucleated RBC (0.00-0.00) X 10*3/uL Immature Gran # (0.00-0.04) X 10*3/uL Eosinophils # (0.04-0.35) X 10*3/uL NRBC/100 WBC Diff (0.0-0.0) /100 WBCS BUN (9.0-27.0) mg/dL Creatinine (0.6-1.5) mg/dL Est GFR (CKD-EPI)AfAm (60.0-200.0) Est GFR (CKD-EPI)NonAf (60.0-200.0) POC Glucose (mg/dL) (75-99) mg/dL Calcium (8.7-10.3) mg/dL Iron 20 L (50-170) ug/dL Transferrin 147.0 L (204.0-354.0) mg/dL Crossmatch See Detail 06/21/21 06/21/21 06/22/21 Range/Units 16:47 21:10 04:56 WBC (3.8-10.6) k/uL RBC (3.80-5.40) m/uL Hgb (11.4-16.0) gm/dL Hct (34.0-46.0) % MCHC (32.0-37.0) g/dL RDW (11.5-15.5) % Absolute Nucleated RBC (0.00-0.00) X 10*3/uL Immature Gran # (0.00-0.04) X 10*3/uL Eosinophils # (0.04-0.35) X 10*3/uL NRBC/100 WBC Diff (0.0-0.0) /100 WBCS BUN 36.2 H (9.0-27.0) mg/dL Creatinine 2.2 H (0.6-1.5) mg/dL Est GFR (CKD-EPI)AfAm 23.9 L (60.0-200.0) Est GFR (CKD-EPI)NonAf 20.6 L (60.0-200.0) POC Glucose (mg/dL) 136 H 113 H (75-99) mg/dL Calcium 8.1 L (8.7-10.3) mg/dL Iron (50-170) ug/dL Transferrin (204.0-354.0) mg/dL Crossmatch 06/22/21 06/22/21 Range/Units 05:00 11:52 WBC (3.8-10.6) k/uL RBC 2.26 L (3.80-5.40) m/uL Hgb 6.6 L* (11.4-16.0) gm/dL Hct 21.4 L (34.0-46.0) % MCHC 30.8 L (32.0-37.0) g/dL RDW 17.0 H (11.5-15.5) % Absolute Nucleated RBC 0.03 H (0.00-0.00) X 10*3/uL Immature Gran # 0.25 H (0.00-0.04) X 10*3/uL Eosinophils # 0.46 H (0.04-0.35) X 10*3/uL NRBC/100 WBC Diff 0.3 H (0.0-0.0) /100 WBCS BUN (9.0-27.0) mg/dL Creatinine (0.6-1.5) mg/dL Est GFR (CKD-EPI)AfAm (60.0-200.0) Est GFR (CKD-EPI)NonAf (60.0-200.0) POC Glucose (mg/dL) 119 H (75-99) mg/dL Calcium (8.7-10.3) mg/dL Iron (50-170) ug/dL Transferrin (204.0-354.0) mg/dL Crossmatch Microbiology - Last 24 Hours (Table) 06/19/21 03:45 Blood Culture - Preliminary Blood No Growth after 72 hours 06/19/21 03:30 Blood Culture - Preliminary Blood No Growth after 72 hours Assessment and Plan Assessment: 1. Hyperkalemia associated with acute kidney injury. Hemoglobin is low therefore underlying GI bleed is a consideration as well. JESICA inhibitor's currently on hold. Now resolved. 2. Acute kidney injury mostly prerenal, nonoliguric previous creatinine 2.5 on 05/13/2021 and 1.1-1.5 in March 2021. Ultrasound shows mild right hydronephrosis. UA is suggestive of UTI 3. 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 Pyuria, started on antibiotics. Urine culture is pending 5. Rule out obstructive uropathy. Ultrasound shows mild right hydronephrosis and possible mass left kidney. CT showed for less in the right pelvis. Status post Natarajan catheter [place] at currently discontinued 6. Anemia rule out GI bleed check iron profile 7. Metabolic acidosis, non-gap associated with acute kidney injury Plan: Monitor for urine retention now that catheter is discontinued. Decrease IV fluids IV iron 1
[2021-06-22 13:04] LABS: Anisocytosis Slight; Basophils # (A) 0.1 k/uL (0-0.2); Basophils % (A) 1 %; Eosinophils # (A) 0.4 k/uL (0-0.7); Eosinophils % (A) 4 %; HCT 22.7 % (34.0-46.0); HGB 7.2 gm/dL (11.4-16.0); Hypochromasia Slight; Lymphocytes # (A) 1.5 k/uL (1.0-4.8); Lymphocytes % (A) 15 %; MCH 30.7 pg (25.0-35.0); MCHC 31.9 g/dL (31.0-37.0); MCV 96.3 fL (80.0-100.0); Mean Platelet Volume 9.2; Monocytes # (A) 0.5 k/uL (0-1.0); Monocytes % (A) 5 %; Neutrophils # (A) 7.4 k/uL (1.3-7.7); Neutrophils % (A) 74 %; Platelet Count 247 k/uL (150-450); RBC 2.35 m/uL (3.80-5.40); RDW 16.4 % (11.5-15.5); WBC 10.1 k/uL (3.8-10.6)
[2021-06-22] MEDS ORDERED: SODIUM FERRIC GLUCONAT-SUCROSE 125 MG in SODIUM CHLORIDE 0.9% 100 ML IVPB ONE (14:00)
--- NOTE | 2021-06-22 14:00 | P.PN ---
Subjective Patient was evaluated bedside today not complaining of any new symptomatology. Family present also all questions were answered. She denies any active loss of blood. Fecal occult was completed previously which was negative. We are pending repeat. She does endorse a history of peptic ulcer disease and completed EGD more than 5-6 years ago. Objective - Vital Signs Vital signs: Vital Signs Temp 98.3 F 06/22/21 07:51 Pulse 80 06/22/21 07:51 Resp 16 06/22/21 07:51 BP 126/57 06/22/21 07:51 Pulse Ox 95 06/22/21 07:51 Intake & Output 06/21/21 06/22/21 06/22/21 18:59 06:59 18:59 Intake Total 0 310 Balance 0 310 Intake: Blood Product 0 310 Rc As-1 Unit 0 310 [id number] Other: Voiding Method External Catheter # Voids 2 6 # Bowel Movements 1 - Exam Constitutional: No acute distress, conversant, pleasant Eyes: Anicteric sclerae, moist conjunctiva, Pupils equal round reactive to light ENMT: NC/AT Oropharynx clear, no erythema, or exudates Neck: Supple, no masses, or JVD No carotid bruits No thyromegaly Lungs: Clear to auscultation Clear to percussion Normal respiratory effort, no accessory muscle use Cardiovascular: Heart regular in rate and rhythm, Systolic murmurs, no gallops, or rubs No peripheral edema Abdominal: Soft Nontender, no guarding, rebound or rigidity Abdomen moving with respiration Normoactive bowel sounds No hepatomegaly, No splenomegaly No palpable mass No abdominal wall hernia noted Skin: Normal temperature, tone, texture, turgor No induration No subcutaneous nodules No rash, lesions No ulcers Extremities: No digital cyanosis No clubbing Pedal pulses intact and symmetrical Radial pulses intact and symmetrical No calf tenderness Psychiatric: Alert and oriented to person, place and time Appropriate affect fair judgement Neuro Muscles Strength 3-4/5 in all 4 extremities Sensation to light touch grossly present throughout Cranial nerves II-XII grossly intact Lymphatics: no palpable cervical or supraclavicular , or inguinal lymph nodes - Labs CBC & Chem 7: 06/22/21 12:42 06/22/21 04:56 Labs: Abnormal Lab Results - Last 24 Hours (Table) 06/21/21 06/21/21 06/21/21 Range/Units 12:50 12:50 16:47 RBC (4.10-5.20) X 10*6/uL Hgb (12.0-15.0) g/dL Hct (37.2-46.3) % MCHC (32.0-37.0) g/dL RDW (11.5-14.5) % Absolute Nucleated RBC (0.00-0.00) X 10*3/uL Immature Gran # (0.00-0.04) X 10*3/uL Eosinophils # (0.04-0.35) X 10*3/uL NRBC/100 WBC Diff (0.0-0.0) /100 WBCS BUN (9.0-27.0) mg/dL Creatinine (0.6-1.5) mg/dL Est GFR (CKD-EPI)AfAm (60.0-200.0) Est GFR (CKD-EPI)NonAf (60.0-200.0) POC Glucose (mg/dL) 136 H (75-99) mg/dL Calcium (8.7-10.3) mg/dL Iron 20 L (50-170) ug/dL Transferrin 147.0 L (204.0-354.0) mg/dL Crossmatch See Detail 06/21/21 06/22/21 06/22/21 Range/Units 21:10 04:56 05:00 RBC 2.26 L (4.10-5.20) X 10*6/uL Hgb 6.6 L* (12.0-15.0) g/dL Hct 21.4 L (37.2-46.3) % MCHC 30.8 L (32.0-37.0) g/dL RDW 17.0 H (11.5-14.5) % Absolute Nucleated RBC 0.03 H (0.00-0.00) X 10*3/uL Immature Gran # 0.25 H (0.00-0.04) X 10*3/uL Eosinophils # 0.46 H (0.04-0.35) X 10*3/uL NRBC/100 WBC Diff 0.3 H (0.0-0.0) /100 WBCS BUN 36.2 H (9.0-27.0) mg/dL Creatinine 2.2 H (0.6-1.5) mg/dL Est GFR (CKD-EPI)AfAm 23.9 L (60.0-200.0) Est GFR (CKD-EPI)NonAf 20.6 L (60.0-200.0) POC Glucose (mg/dL) 113 H (75-99) mg/dL Calcium 8.1 L (8.7-10.3) mg/dL Iron (50-170) ug/dL Transferrin (204.0-354.0) mg/dL Crossmatch 06/22/21 06/22/21 Range/Units 11:52 12:42 RBC 2.35 L (4.10-5.20) X 10*6/uL Hgb 7.2 L (12.0-15.0) g/dL Hct 22.7 L (37.2-46.3) % MCHC (32.0-37.0) g/dL RDW 16.4 H (11.5-14.5) % Absolute Nucleated RBC (0.00-0.00) X 10*3/uL Immature Gran # (0.00-0.04) X 10*3/uL Eosinophils # (0.04-0.35) X 10*3/uL NRBC/100 WBC Diff (0.0-0.0) /100 WBCS BUN (9.0-27.0) mg/dL Creatinine (0.6-1.5) mg/dL Est GFR (CKD-EPI)AfAm (60.0-200.0) Est GFR (CKD-EPI)NonAf (60.0-200.0) POC Glucose (mg/dL) 119 H (75-99) mg/dL Calcium (8.7-10.3) mg/dL Iron (50-170) ug/dL Transferrin (204.0-354.0) mg/dL Crossmatch Microbiology - Last 24 Hours (Table) 06/19/21 03:45 Blood Culture - Preliminary Blood No Growth after 72 hours 06/19/21 03:30 Blood Culture - Preliminary Blood No Growth after 72 hours Assessment and Plan Plan: Assessment: #1 urinary tract infection #2 acute kidney injury possibly prerenal #3 severe hyperkalemia-resolved #4 diabetes mellitus #5 acute blood loss anemia? Plan: -Patient has been downgraded to medical floor. -Aspiration/fall precaution -Hemoglobin repeat 6.6. This was after transfusion without any active bleed we'll repeat H&H and transfuse if less than 7. -Pending fecal occult -Creatinine level slowly trending down -CT abdomen and pelvis ordered by nephrology reviewed. Showing right perinephric and perinephric fat stranding. There suspected possible cirrhotic hepatic changes. Recommend outpatient follow-up. -Continue with IV Rocephin and monitor for urine cultures -If hemoglobin continues to trend down will need evaluation by GI team. -DVT prophylaxis SCDs for now
[2021-06-22 16:40] LABS: Glucose,Whole Blood 122 mg/dL (75-99)
[2021-06-22 20:52] LABS: Glucose,Whole Blood 124 mg/dL (75-99)
[2021-06-22] MEDS: METOPROLOL SUCCINATE (ER) 25 MG TAB.ER.24H PO SCH (22:25)
[2021-06-22] MEDS: PREGABALIN 50 MG CAP PO SCH (22:26)
[2021-06-23] MEDS: HYDROcodone/APAP 7.5-325MG 1 EACH TAB PO PRN ×3 (03:15→22:36)
[2021-06-23] MEDS: LACTATED RINGERS 1,000 ML IV SCH ×3 (03:27→17:29)
[2021-06-23 03:28] LABS: Glucose,Whole Blood 88 mg/dL (75-99)
[2021-06-23] MEDS: LEVOTHYROXINE 88 MCG TAB PO SCH (05:47)
[2021-06-23 06:52] LABS: Glucose,Whole Blood 87 mg/dL (75-99)
[2021-06-23] MEDS: INSULIN ASPART (NovoLOG) 100 UNIT/ML VIAL SQ SCH ×4 (07:02→20:25)
[2021-06-23] MEDS: amLODIPine 2.5 MG TAB PO SCH (07:51)
[2021-06-23] MEDS: ASPIRIN 81 MG PO SCH (07:52)
[2021-06-23 08:58] LABS: Anisocytosis Slight; Basophils # (A) 0.1 k/uL (0-0.2); Basophils % (A) 1 %; Eosinophils # (A) 0.4 k/uL (0-0.7); Eosinophils % (A) 5 %; HGB 7.5 gm/dL (11.4-16.0); Hypochromasia Slight; Lymphocytes # (A) 1.8 k/uL (1.0-4.8); Lymphocytes % (A) 20 %; MCH 30.3 pg (25.0-35.0); MCHC 31.3 g/dL (31.0-37.0); Macrocytosis Slight; Mean Platelet Volume 9.8; Monocytes # (A) 0.3 k/uL (0-1.0); Monocytes % (A) 3 %; Neutrophils # (A) 6.3 k/uL (1.3-7.7); Neutrophils % (A) 69 %; Platelet Count 252 k/uL (150-450); RBC 2.48 m/uL (3.80-5.40); RDW 16.7 % (11.5-15.5)
[2021-06-23 09:07] LABS: African American GFR (CKD) 28 (>60 ml/min/1.73 sqM); Anion Gap 9 mmol/L; Blood Urea Nitrogen 33 mg/dL (7-17); Calcium 8.2 mg/dL (8.4-10.2); Carbon Dioxide 27 mmol/L (22-30); Chloride 105 mmol/L (98-107); Glucose 127 mg/dL (74-99); Non-African American GFR(CKD) 24 (>60 ml/min/1.73 sqM); Potassium 4.3 mmol/L (3.5-5.1); Sodium 141 mmol/L (137-145)
--- NOTE | 2021-06-23 10:51 | P.PN ---
Subjective Patient was examined at bedside today not complaining of any new symptomatology. She denies any episodes of bleeding, bright red blood per rectum or melena. Repeat hemoglobin yesterday was stable. She is resting comfortably in chair. Objective - Vital Signs Vital signs: Vital Signs Temp 98.0 F 06/23/21 08:00 Pulse 71 06/23/21 08:00 Resp 18 06/23/21 08:00 BP 145/72 06/23/21 08:00 Pulse Ox 96 06/23/21 08:00 Intake & Output 06/22/21 06/23/21 06/23/21 17:59 06:59 18:59 Intake Total Output Total Balance Intake: Intake, IV Titration Amount Lactated Ringers 1,000 ml @ 100 mls/hr IV .Q10H [facility] Rx#:[id number] Oral Output: Stool Other: Voiding Method # Voids # Bowel Movements - Exam Constitutional: No acute distress, conversant, pleasant Eyes: Anicteric sclerae, moist conjunctiva, Pupils equal round reactive to light ENMT: NC/AT Oropharynx clear, no erythema, or exudates Neck: Supple, no masses, or JVD No carotid bruits No thyromegaly Lungs: Clear to auscultation Clear to percussion Normal respiratory effort, no accessory muscle use Cardiovascular: Heart regular in rate and rhythm, Systolic murmurs, no gallops, or rubs No peripheral edema Abdominal: Soft Nontender, no guarding, rebound or rigidity Abdomen moving with respiration Normoactive bowel sounds No hepatomegaly, No splenomegaly No palpable mass No abdominal wall hernia noted Skin: Normal temperature, tone, texture, turgor No induration No subcutaneous nodules No rash, lesions No ulcers Extremities: No digital cyanosis No clubbing Pedal pulses intact and symmetrical Radial pulses intact and symmetrical No calf tenderness Psychiatric: Alert and oriented to person, place and time Appropriate affect fair judgement Neuro Muscles Strength 3-4/5 in all 4 extremities Sensation to light touch grossly present throughout Cranial nerves II-XII grossly intact Lymphatics: no palpable cervical or supraclavicular , or inguinal lymph nodes - Labs CBC & Chem 7: 06/23/21 08:21 06/23/21 08:21 Labs: Abnormal Lab Results - Last 24 Hours (Table) 06/22/21 06/22/21 06/22/21 Range/Units 05:00 11:52 12:42 RBC 2.26 L 2.35 L (4.10-5.20) X 10*6/uL Hgb 6.6 L* 7.2 L (12.0-15.0) g/dL Hct 21.4 L 22.7 L (37.2-46.3) % MCHC 30.8 L (32.0-37.0) g/dL RDW 17.0 H 16.4 H (11.5-14.5) % Absolute Nucleated RBC 0.03 H (0.00-0.00) X 10*3/uL Immature Gran # 0.25 H (0.00-0.04) X 10*3/uL Eosinophils # 0.46 H (0.04-0.35) X 10*3/uL NRBC/100 WBC Diff 0.3 H (0.0-0.0) /100 WBCS BUN (7-17) mg/dL Creatinine (0.52-1.04) mg/dL Glucose (74-99) mg/dL POC Glucose (mg/dL) 119 H (75-99) mg/dL Calcium (8.4-10.2) mg/dL Stool Occult Blood (Negative) 06/22/21 06/22/21 06/22/21 Range/Units 14:15 16:39 20:50 RBC (4.10-5.20) X 10*6/uL Hgb (12.0-15.0) g/dL Hct (37.2-46.3) % MCHC (32.0-37.0) g/dL RDW (11.5-14.5) % Absolute Nucleated RBC (0.00-0.00) X 10*3/uL Immature Gran # (0.00-0.04) X 10*3/uL Eosinophils # (0.04-0.35) X 10*3/uL NRBC/100 WBC Diff (0.0-0.0) /100 WBCS BUN (7-17) mg/dL Creatinine (0.52-1.04) mg/dL Glucose (74-99) mg/dL POC Glucose (mg/dL) 122 H 124 H (75-99) mg/dL Calcium (8.4-10.2) mg/dL Stool Occult Blood Positive H (Negative) 06/23/21 06/23/21 Range/Units 08:21 08:21 RBC 2.48 L (4.10-5.20) X 10*6/uL Hgb 7.5 L (12.0-15.0) g/dL Hct 24.0 L (37.2-46.3) % MCHC (32.0-37.0) g/dL RDW 16.7 H (11.5-14.5) % Absolute Nucleated RBC (0.00-0.00) X 10*3/uL Immature Gran # (0.00-0.04) X 10*3/uL Eosinophils # (0.04-0.35) X 10*3/uL NRBC/100 WBC Diff (0.0-0.0) /100 WBCS BUN 33 H (7-17) mg/dL Creatinine 1.94 H (0.52-1.04) mg/dL Glucose 127 H (74-99) mg/dL POC Glucose (mg/dL) (75-99) mg/dL Calcium 8.2 L (8.4-10.2) mg/dL Stool Occult Blood (Negative) Microbiology - Last 24 Hours (Table) 06/19/21 03:45 Blood Culture - Preliminary Blood No Growth after 96 hours 06/19/21 03:30 Blood Culture - Preliminary Blood No Growth after 96 hours Assessment and Plan Plan: Assessment: #1 urinary tract infection #2 acute kidney injury possibly prerenal #3 severe hyperkalemia-resolved #4 diabetes mellitus #5 acute blood loss anemia? #6 positive stool occult blood #7 history of peptic ulcer disease as per patient. Plan: -Patient has been downgraded to medical floor. -Aspiration/fall precaution -Repeat hemoglobin 7.5. Continue to monitor closely and transfuse if less than 7. Stool occult positive which was completed yesterday. Monitor for any signs of bleeding. She will need a colonoscopy we will coordinate accordingly as his no GI coverage over the weekend. -Creatinine level slowly trending down, continue to monitor. Computed tomography scan of the abdomen and pelvis reviewed. Nephrology on board. -CT abdomen and pelvis ordered by nephrology reviewed. Showing right perinephric and perinephric fat stranding. There suspected possible cirrhotic hepatic changes. Recommend outpatient follow-up. -Continue with IV Rocephin and monitor for urine cultures. Recommend completing 5 days of antimicrobial coverage for UTI. -Known patient does state having a history of peptic ulcer disease. We'll try to obtain her old medical records. -DVT prophylaxis SCDs for now
[2021-06-23 11:31] LABS: Glucose,Whole Blood 112 mg/dL (75-99)
--- NOTE | 2021-06-23 15:30 | P.PN ---
Subjective Patient is seen for follow-up for acute kidney injury and hyperkalemia. Serum and creatinine down to about 2.2 Patient is maintained on IV fluids. She is currently off of the JESICA inhibitor's. No active GI bleeding noted. Patient is sitting on a bedside chair. She is comfortable awake. Not in any acute distress. Oral intake has improved. She has had good urine output. Creatinine down to 1.9 today Objective - Vital Signs Vital signs: Vital Signs Temp 98.0 F 06/23/21 14:00 Pulse 74 06/23/21 14:00 Resp 18 06/23/21 14:00 BP 122/52 06/23/21 14:00 Pulse Ox 98 06/23/21 14:00 Intake & Output 06/22/21 06/23/21 06/23/21 17:59 06:59 18:59 Intake Total Output Total Balance Intake: Intake, IV Titration Amount Lactated Ringers 1,000 ml @ 100 mls/hr IV .Q10H [facility] Rx#:[id number] Oral Output: Stool Other: Voiding Method # Voids # Bowel Movements - Exam Patient is awake comfortable not in any acute distress. She is appropriate in answering questions appropriately. Examination of the heart S1 and S2 Examination lungs bilateral breath sounds are heard Abdomen is soft nontender Examination of lower extremities shows no significant edema. RISK SPECIALIST exam grossly intact - Labs CBC & Chem 7: 06/23/21 08:21 06/23/21 08:21 Labs: Abnormal Lab Results - Last 24 Hours (Table) 06/22/21 06/22/21 06/22/21 Range/Units 14:15 16:39 20:50 RBC (3.80-5.40) m/uL Hgb (11.4-16.0) gm/dL Hct (34.0-46.0) % RDW (11.5-15.5) % BUN (7-17) mg/dL Creatinine (0.52-1.04) mg/dL Glucose (74-99) mg/dL POC Glucose (mg/dL) 122 H 124 H (75-99) mg/dL Calcium (8.4-10.2) mg/dL Stool Occult Blood Positive H (Negative) 06/23/21 06/23/21 06/23/21 Range/Units 08:21 08:21 11:29 RBC 2.48 L (3.80-5.40) m/uL Hgb 7.5 L (11.4-16.0) gm/dL Hct 24.0 L (34.0-46.0) % RDW 16.7 H (11.5-15.5) % BUN 33 H (7-17) mg/dL Creatinine 1.94 H (0.52-1.04) mg/dL Glucose 127 H (74-99) mg/dL POC Glucose (mg/dL) 112 H (75-99) mg/dL Calcium 8.2 L (8.4-10.2) mg/dL Stool Occult Blood (Negative) Microbiology - Last 24 Hours (Table) 06/19/21 03:45 Blood Culture - Preliminary Blood No Growth after 96 hours 06/19/21 03:30 Blood Culture - Preliminary Blood No Growth after 96 hours Assessment and Plan Assessment: 1. Hyperkalemia associated with acute kidney injury. Hemoglobin is low therefore underlying GI bleed is a consideration as well. JESICA inhibitor's currently on hold. Now resolved. 2. Acute kidney injury mostly prerenal, nonoliguric previous creatinine 2.5 on 05/13/2021 and 1.1-1.5 in March 2021. Ultrasound shows mild right hydron ephrosis. UA is suggestive of UTI 3. 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 Pyuria, started on antibiotics. Urine culture is pending 5. Rule out obstructive uropathy. Ultrasound shows mild right hydronephrosis and possible mass left kidney. CT showed for less in the right pelvis. Status post Natarajan catheter .Currently discontinued 6. Anemia rule out GI bleed check iron profile 7. Metabolic acidosis, non-gap associated with acute kidney injury Plan: Monitor for urine retention now that catheter is discontinued. Decrease IV fluids
[2021-06-23 16:44] LABS: Glucose,Whole Blood 110 mg/dL (75-99)
[2021-06-23 20:18] LABS: Glucose,Whole Blood 120 mg/dL (75-99)
[2021-06-23] MEDS: PREGABALIN 50 MG CAP PO SCH (20:25)
[2021-06-23] MEDS: METOPROLOL SUCCINATE (ER) 25 MG TAB.ER.24H PO SCH (20:25)
[2021-06-24 01:59] LABS: Glucose,Whole Blood 93 mg/dL (75-99)
[2021-06-24] MEDS: LEVOTHYROXINE 88 MCG TAB PO SCH (05:47)
[2021-06-24 06:48] LABS: Glucose,Whole Blood 89 mg/dL (75-99)
[2021-06-24] MEDS: INSULIN ASPART (NovoLOG) 100 UNIT/ML VIAL SQ SCH ×4 (07:16→20:22)
[2021-06-24] MEDS: ASPIRIN 81 MG PO SCH (07:59)
[2021-06-24] MEDS: amLODIPine 2.5 MG TAB PO SCH (07:59)
[2021-06-24] MEDS: HYDROcodone/APAP 7.5-325MG 1 EACH TAB PO PRN ×3 (08:11→23:46)
[2021-06-24 09:53] LABS: African American GFR (CKD) 36.5 (60.0-200.0); Anion Gap 11.1 mmol/L (10.00-18.00); BUN/Creat Ratio 15.87 Ratio (12.00-20.00); Blood Urea Nitrogen 24.6 mg/dL (9.0-27.0); Calcium 8.5 mg/dL (8.7-10.3); Carbon Dioxide 25.1 mmol/L (20.0-27.5); Non-African American GFR(CKD) 31.5 (60.0-200.0); Potassium 4.3 mmol/L (3.5-5.5)
[2021-06-24 10:53] LABS: Basophils # (A) 0.06 X 10*3/uL (0.00-0.10); Basophils % (A) 0.6 %; Eosinophils # (A) 0.32 X 10*3/uL (0.04-0.35); Eosinophils % (A) 3.2 %; HCT 21.1 % (37.2-46.3); Lymphocytes # (A) 2.02 X 10*3/uL (0.90-5.00); Lymphocytes % (A) 20.3 %; MCH 29.9 pg (27.0-32.0); MCHC 30.3 g/dL (32.0-37.0); MCV 98.6 fL (80.0-97.0); Mean Platelet Volume 11.8 fL (9.5-12.2); Monocytes # (A) 0.53 X 10*3/uL (0.20-1.00); Monocytes % (A) 5.3 %; NRBC Per 100 WBC 0.2 /100 WBCS (0.0-0.0); Neutrophils # (A) 6.62 X 10*3/uL (1.80-7.70); Neutrophils % (A) 66.6 %; Platelet Count 239 X 10*3/uL (140-440); RBC 2.14 X 10*6/uL (4.10-5.20); RDW 16.7 % (11.5-14.5); WBC 9.95 X 10*3/uL (4.50-10.00)
[2021-06-24 11:14] LABS: HGB 6.4 g/dL (12.0-15.0)
[2021-06-24 11:15] LABS: Glucose,Whole Blood 102 mg/dL (75-99)
--- NOTE | 2021-06-24 11:53 | P.CONS ---
History of Present Illness - Reason for Consult Consult date: 06/24/21 GI bleed Requesting physician: Yani Villalba - Chief Complaint Weakness - History of Present Illness Assessment 81-year-old female who came to the emergency department on 06/19/2021 for complaints of bilateral lower extremity weakness and generalized weakness. She has a past medical history diabetes mellitus, hypothyroid, and hypertension. The patient was found to be anemic on admission. She states she does have a history of chronic anemia and is on oral iron. She did have a drop from 7.6-6.6 and was given 1 unit of PRBC transfusion. She states that she does have dark stool but she relates it to her iron. She also reports a history of peptic ulcer disease and status post EGD approximately 6 years ago and the [facility]. Gastroenterology was consulted for possible GI bleed. She did have a positive heme occult stool. She is denying any abdominal pain, nausea, or vomiting. She states that she does occasionally take NSAIDs however not on a daily basis. She is not on any anticoagulation other than the low-dose aspirin daily. The patient was approximately 6 years ago as well. On today's labs WBC 9.9 hemoglobin 6.4 hematocrit 21 platelet count 239,000 Review of Systems REVIEW OF SYSTEMS: CARDIOPULMONARY: No chest pain or shortness of breath. Gastrointestinal: Denies any abdominal pain. No nausea or vomiting. No hemate mesis, coffee-ground emesis. No rectal bleeding, or melena. Patient states still has been dark but no more than usual and is on oral iron. GENITOURINARY: No dysuria or hematuria. MUSCULOSKELETAL: Reports normal range of motion., Joint pain. SKIN: No rashes. No jaundice. ENDOCRINE: No chills, fevers. No excessive weight gain or loss. No polydipsia or polyuria. PSYCHIATRIC: Unremarkable. NEUROLOGY: No change in mental status. Denies dizziness, headache. ENT: Vision unremarkable. CONSTITUTIONAL: No recent weight loss. No fever, chills, night sweats. Past Medical History Past Medical History: Diabetes Mellitus, Hypertension Additional Past Medical History / Comment(s): Type2, hypothyroidism, chronic back/neck pain, fibromyalgia History of Any Multi-Drug Resistant Organisms: None Reported Past Surgical History: Unable to Obtain Additional Past Surgical History / Comment(s): neck surgery, c-spine surgery, heart valve replacement Past Anesthesia/Blood Transfusion Reactions: No Reported Reaction Smoking Status: Never smoker - Past Family History Family Family Medical History: No Reported History Medications and Allergies Home Medications Medication Instructions Recorded Confirmed Type Albuterol Inhaler [Ventolin Hfa 2 puff INHALATION RT-Q4H PRN 06/19/21 06/19/21 History Inhaler] Aspirin EC [Ecotrin Low Dose] 81 mg PO DAILY 06/19/21 06/19/21 History Baclofen [Lioresal] 10 mg PO HS PRN 06/19/21 06/19/21 History Dulaglutide [Trulicity] 1.5 mg SQ Q7D 06/19/21 06/19/21 History Ferrous Sulfate [Feosol] 325 mg PO DAILY 06/19/21 06/19/21 History Furosemide [Lasix] 20 mg PO DAILY PRN 06/19/21 06/19/21 History HYDROcodone/APAP 7.5-325MG [[place] 1 tab PO Q8H PRN 06/19/21 06/19/21 History 7.5-325] Levothyroxine Sodium [Synthroid] 88 mcg PO DAILY 06/19/21 06/19/21 History Metoprolol Succinate [Toprol XL] 25 mg PO HS 06/19/21 06/19/21 History Omeprazole 40 mg PO DAILY 06/19/21 06/19/21 History Pregabalin [Lyrica] 50 mg PO HS 06/19/21 06/19/21 History Tolterodine Tartrate [Detrol LA] 4 mg PO DAILY 06/19/21 06/19/21 History amLODIPine [Norvasc] 2.5 mg PO DAILY 06/19/21 06/19/21 History glipiZIDE XL [Glucotrol Xl] 5 mg PO DAILY 06/19/21 06/19/21 History lisinopriL [Zestril] 2.5 mg PO DAILY 06/19/21 06/19/21 History Allergies Allergy/AdvReac Type Severity Reaction Status Date / Time Penicillins Allergy Swelling Verified 06/19/21 07:28 Sulfa (Sulfonamide Allergy Unknown Verified 06/19/21 07:28 Antibiotics) clindamycin AdvReac Nausea & Verified 06/19/21 07:28 Vomiting Physical Exam Vitals: Vital Signs Temp Pulse Resp BP Pulse Ox 06/24/21 07:32 97.8 F 69 17 133/67 99 06/24/21 01:57 98.1 F 69 16 126/61 94 L 06/23/21 20:16 97.6 F 65 15 122/56 98 06/23/21 14:00 98.0 F 74 18 122/52 98 Intake and Output 06/23/21 06/24/21 06/24/21 22:59 06:59 14:59 Other: Voiding Method Toilet Toilet # Voids 4 2 # Bowel Movements 0 General appearance: The patient is alert, oriented, appears in no acute distress. HET: Head is normocephalic and atraumatic. Conjunctiva pink. Sclera anicteric. Neck: Supple without lymphadenopathy. Trachea midline. Heart: S1 S2. Regular rate and rhythm. Lungs: Clear to auscultation. Abdomen: Soft, nontender, nondistended with bowel sounds. No guarding or rigidity. Skin: No rashes. No jaundice. Extremities: Normal skin color and turgor. No pedal edema. Neurological: No focal deficits. Alert and oriented x3. Results CBC & Chem 7: 06/24/21 04:39 06/24/21 04:39 Labs: Abnormal Lab Results - Last 24 Hours (Table) 06/23/21 06/23/21 06/23/21 Range/Units 08:21 08:21 11:29 RBC 2.48 L (3.80-5.40) m/uL Hgb 7.5 L (11.4-16.0) gm/dL Hct 24.0 L (34.0-46.0) % RDW 16.7 H (11.5-15.5) % BUN 33 H (7-17) mg/dL Creatinine 1.94 H (0.52-1.04) mg/dL Glucose 127 H (74-99) mg/dL POC Glucose (mg/dL) 112 H (75-99) mg/dL Calcium 8.2 L (8.4-10.2) mg/dL 06/23/21 06/23/21 Range/Units 16:43 20:17 RBC (3.80-5.40) m/uL Hgb (11.4-16.0) gm/dL Hct (34.0-46.0) % RDW (11.5-15.5) % BUN (7-17) mg/dL Creatinine (0.52-1.04) mg/dL Glucose (74-99) mg/dL POC Glucose (mg/dL) 110 H 120 H (75-99) mg/dL Calcium (8.4-10.2) mg/dL Microbiology - Last 24 Hours (Table) 06/19/21 03:45 Blood Culture - Preliminary Blood No Growth after 120 hours 06/19/21 03:30 Blood Culture - Preliminary Blood No Growth after 120 hours Comments: CT abdomen and pelvis showed a lobulated outline of left kidney with possible sequela of previous infarct/infection. No gross left renal mass cannot be excluded. Right-sided hydroureter and hydronephrosis with right. Nephrotic and right. Nephrotic fat stranding and ureteral lethal thickening. Suspected cirrhotic hepatic changes and mild splenomegaly Assessment and Plan (1) Iron deficiency anemia Narrative/Plan: 81-year-old female who presented to the emergency department several days, with complaints of bilateral lower extremity weakness as well as generalized weakness was noted to be anemic. Patient has a history of chronic anemia and presented with a hemoglobin of 7.2. She then had a drop down to 6.6 and was given 1 unit of PRBC transfusion. She denies any signs or symptoms of GI bleed, states her stool has been dark but that's related to her oral iron she takes at home. She Does however have a history of peptic ulcer disease status post EGD approximately 6 years ago for which she believe she also had colonoscopy near that time. She did this denies any anticoagulation or NSAID use. Denies any abdominal pain, acid reflux, nausea vomiting. Patient had another drop in her hemoglobin today to 6.4. Possible etiologies include gastritis, esophagitis, peptic ulcer disease, AVM or other possible etiologies. Patient also likely with component of iron deficiency anemia. We'll plan upper endoscopy tomorrow. Current Visit: Yes Status: Acute Code(s): D50.9 - IRON DEFICIENCY ANEMIA, U NSPECIFIED SNOMED Code(s): 55424653 (2) Fecal occult blood test positive Current Visit: Yes Status: Acute Code(s): R19.5 - OTHER FECAL ABNORMALITIES SNOMED Code(s): 34071986 Plan: 1. Continue symptomatic and supportive care 2. Daily CBC, transfuse per protocol 3. Anemia panel ordered 4. 1 unit PRBC order 5. Protonix 40 mg twice a day, GI prophylaxis 6. Nothing by mouth after midnight 7. We'll plan on EGD tomorrow Thank you for this consultation, we will continue to follow. Dr. Javed Heart I agree with the dictator's note, documented as a scribe by Mattie Ray.
--- NOTE | 2021-06-24 12:35 | P.PN ---
Subjective Patient is seen in follow-up for acute kidney injury on chronic kidney disease. No active bleeding. Hemoglobin 6.4 today. EGD tomorrow. No vomiting or diarrhea. No chest pain or shortness of breath. Son present at bedside. Vital signs are stable. General: Awake and alert. HEENT: Head exam is unremarkable. LUNGS: Breath sounds decreased. HEART: Rate and Rhythm are regular. ABDOMEN: Soft, no distention. EXTREMITITES: No edema. Objective - Vital Signs Vital signs: Vital Signs Temp 97.8 F 06/24/21 07:32 Pulse 69 06/24/21 07:32 Resp 17 06/24/21 07:32 BP 133/67 06/24/21 07:32 Pulse Ox 99 06/24/21 07:32 Intake & Output 06/23/21 06/24/21 06/24/21 18:59 06:59 18:59 Other: Voiding Method Toilet Toilet # Voids 4 2 # Bowel Movements 0 - Labs CBC & Chem 7: 06/24/21 04:39 06/24/21 04:39 Labs: Abnormal Lab Results - Last 24 Hours (Table) 06/21/21 06/23/21 06/23/21 Range/Units 12:50 16:43 20:17 RBC (4.10-5.20) X 10*6/uL Hgb (12.0-15.0) g/dL Hct (37.2-46.3) % MCV (80.0-97.0) fL MCHC (32.0-37.0) g/dL RDW (11.5-14.5) % Absolute Nucleated RBC (0.00-0.00) X 10*3/uL Immature Gran # (0.00-0.04) X 10*3/uL NRBC/100 WBC Diff (0.0-0.0) /100 WBCS Creatinine (0.6-1.5) mg/dL Est GFR (CKD-EPI)AfAm (60.0-200.0) Est GFR (CKD-EPI)NonAf (60.0-200.0) POC Glucose (mg/dL) 110 H 120 H (75-99) mg/dL Calcium (8.7-10.3) mg/dL Crossmatch See Detail 06/24/21 06/24/21 06/24/21 Range/Units 04:39 04:39 11:11 RBC 2.14 L (4.10-5.20) X 10*6/uL Hgb 6.4 L* (12.0-15.0) g/dL Hct 21.1 L (37.2-46.3) % MCV 98.6 H (80.0-97.0) fL MCHC 30.3 L (32.0-37.0) g/dL RDW 16.7 H (11.5-14.5) % Absolute Nucleated RBC 0.02 H (0.00-0.00) X 10*3/uL Immature Gran # 0.40 H (0.00-0.04) X 10*3/uL NRBC/100 WBC Diff 0.2 H (0.0-0.0) /100 WBCS Creatinine 1.6 H (0.6-1.5) mg/dL Est GFR (CKD-EPI)AfAm 36.5 L (60.0-200.0) Est GFR (CKD-EPI)NonAf 31.5 L (60.0-200.0) POC Glucose (mg/dL) 102 H (75-99) mg/dL Calcium 8.5 L (8.7-10.3) mg/dL Crossmatch Microbiology - Last 24 Hours (Table) 06/19/21 03:45 Blood Culture - Preliminary Blood No Growth after 120 hours 06/19/21 03:30 Blood Culture - Preliminary Blood No Growth after 120 hours Assessment and Plan Plan: Assessment: 1. Acute kidney injury mostly prerenal secondary to anemia and hypovolemia. Improving. Creatinine 1.6 today. 2. 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 3. Acute blood loss anemia status post blood restriction. EGD tomorrow. 4. Hyperkalemia secondary to acute kidney injury, acidosis and GI bleed. JESICA inhibitor held. Potassium stable at 4.3 today. 5. Hypertension with chronic kidney disease. Stable. 6. Diabetes. 7. Metabolic acidosis secondary to acute kidney injury. Resolved. 8. UTI on antibiotics. CAT scan suggestive of right-sided pyelonephritis. 9. Right-sided hydronephrosis. Natarajan catheter discontinued. Renal function improving. Monitor. Consider urology consult. Plan: Maintain gentle IV hydration. Scheduled to receive a unit of blood today. EGD tomorrow. Avoid nephrotoxins. Continue to monitor renal function and urine output. Add Aranesp.
[2021-06-24] MEDS ORDERED: DARBEPOETIN ALFA 40 MCG/0.4 ML SYRINGE SQ SCH (13:00)
--- NOTE | 2021-06-24 13:15 | CDI ---
Documentation Clarification Form Date: 06/24/2021 12:25:27 PM From: Shyann Rincon RN CCDS Admit Date: 06/19/2021 03:45:00 AM Patient Name: Nerissa Lr Visit Number: [id number] Discharge Date: ATTENTION: The Clinical Documentation Specialists (CDI) and [facility] Coding Staff appreciate your assistance in clarifying documentation. Please respond to the clarification below the line at the bottom and electronically sign. The CDI & [facility] Coding staff will review the response and follow-up if needed. Please note: Queries are made part of the Legal Health Record. If you have any questions, please contact the author of this message via ITS. Dr. Yani Villalba The patient presented with the following clinical indicators. Additional clarification regarding the etiology/cause of the clinical indicators is requested. History/Risk Factors: 81 year female presents to the ED with weakness and difficulty walking and generalized weakness with nausea and vomiting for 2 days duration. Medical History: HTN, DM2 and fibromyalgia. Clinical Indicators: Pulmonology progress note 06/20: Acute renal failure, related to sepsis, secondary to urinary tract infection. WBC 06/19: 16.4 WBC 06/21: 11.2 CR: 06/19: 3.21, 06/19 3.19, 06/20 2.87, 06/21 2.82 UA 06/19: Appearance Turbid; Blood moderate; Leukocyte Esterase Large; Wbc >182; Occasional bacteria. Urine culture 06/19: No growth after 18 hours Vitals signs 06/19 B/P 133/113; HR 62; Temp 98.1 F Oral; RR 16; SpO2 100% ra Medicine progress note 06/23: Recommend completing 5 days of antimicrobial coverage for UTI. . Treatment: 06/19 to current Ceftriaxone 1gm IVPB Q24H In your professional opinion, please clarify if these findings signify one of the following conditions: [x] Sepsis POA [ ] Sepsis, Not POA [ ] Sepsis ruled out [ ] Other, please specify [ ] Unable to determine SIRS Criteria: 2 or more of the following may indicate SIRS -Temperature < 96.8F (36C) or > 101.0F (38.3C) -Heart Rate > 90 bpm -Respiratory Rate > 20 breaths/min or PaCO2 < 32 mmHg -White Blood Cell Count > 12,000 or < 4,000 cells/mm3 or > 10% bands (Template Last Reviewed: May 2020) MTDD
--- NOTE | 2021-06-24 13:22 | CDI ---
Documentation Clarification Form Date: 06/24/2021 01:15:46 PM From: Shyann Rincon RN CCDS Admit Date: 06/19/2021 03:45:00 AM Patient Name: Nerissa Lr Visit Number: [id number] Discharge Date: ATTENTION: The Clinical Documentation Specialists (CDI) and [facility] Coding Staff appreciate your assistance in clarifying documentation. Please respond to the clarification below the line at the bottom and electronically sign. The CDI & [facility] Coding staff will review the response and follow-up if needed. Please note: Queries are made part of the Legal Health Record. If you have any questions, please contact the author of this message via ITS. Dr. Javi Spain Your patient has the documented symptom of Altered Mental Status 06/21, Pulmonary progress note. Additional clarification regarding the etiology/cause of this symptom is requested. History/Risk Factors: 81 year female presents to the ED with weakness and difficulty walking and generalized weakness with nausea and vomiting for 2 days duration. Medical History: HTN, DM2 and fibromyalgia. Clinical Indicators: Pulmonology progress note 06/20: Acute renal failure, related to sepsis, secondary to urinary tract infection. WBC 06/19: 16.4 WBC 06/21: 11.2 CR: 06/19: 3.21, 06/19 3.19, 06/20 2.87, 06/21 2.82 UA 06/19: Appearance Turbid; Blood moderate; Leukocyte Esterase Large; Wbc >182; Occasional bacteria. Urine culture 06/19: No growth after 18 hours Vitals signs 06/19 B/P 133/113; HR 62; Temp 98.1 F Oral; RR 16; SpO2 100% ra Medicine progress note 06/23: Recommend completing 5 days of antimicrobial coverage for UTI. . Please clarify the etiology of the symptom of Altered Mental Status: [ ] Metabolic Encephalopathy due to acute kidney injury and acute uti. [ ] Other condition (please specify) [ ] Unable to determine (Template Last Revised: May 2020) Unable to determine MTDD
[2021-06-24 14:05] LABS: % Iron Saturation 15.03 (12.00-45.00)
--- NOTE | 2021-06-24 14:28 | P.PN ---
Subjective Progress Note Date: 06/24/21 Patient has no new complaints today. Says she she feels overall improved. She did require 1 unit of packed red blood cell transfusion yesterday. Today's hemoglobin is 6.4. Stool occult was positive for blood. Patient is pending GI consultation. Gen: awake, alert HEENT: normocephalic, atraumatic, good hearing acuity, moist mucous membranes Resp: good air exchange, breathing comfortably with no accessory muscle use CVS: good distal perfusion x 4, GI: soft, NTTP, ND : no SPT, no CVAT, correia catheter is present MSK: no pitting edema, no clubbing Neuro: non-focal, moving all extremities Psych: cooperative, euthymic mood Assessment/plan: #1 urinary tract infection #2 acute kidney injury possibly prerenal #3 severe hyperkalemia-resolved #4 diabetes mellitus #5 acute blood loss anemia #6 GI bleed #7 history of peptic ulcer disease as per patient. Plan: -Patient has been downgraded to medical floor. -Aspiration/fall precaution -Trend hemoglobin, goal greater than 7; 1 unit packed red blood cells on 06/23, 1 unit packed red blood cells on 06/24 -GI consult, pending -Creatinine level slowly trending down, continue to monitor. Computed tomography scan of the abdomen and pelvis reviewed. Nephrology on board. -CT abdomen and pelvis ordered by nephrology reviewed. Showing right perinephr ic and perinephric fat stranding. There suspected possible cirrhotic hepatic changes. Recommend outpatient follow-up. -Continue with IV Rocephin and monitor for urine cultures. Recommend completing 5 days of antimicrobial coverage for UTI. -Known patient does state having a history of peptic ulcer disease. We'll try to obtain her old medical records. -DVT prophylaxis SCDs for now Objective - Vital Signs Vital signs: Vital Signs Temp 97.8 F 06/24/21 13:13 Pulse 77 06/24/21 13:53 Resp 16 06/24/21 13:53 BP 118/48 06/24/21 13:53 Pulse Ox 99 06/24/21 13:53 Intake & Output 06/23/21 06/24/21 06/24/21 18:59 06:59 18:59 Intake Total 0 Balance 0 Weight 83.4 kg Intake: Blood Product 0 Rc As-1 Unit 0 [id number] Other: Voiding Method Toilet Toilet # Voids 4 2 # Bowel Movements 0 - Labs CBC & Chem 7: 06/24/21 04:39 06/24/21 04:39 Labs: Abnormal Lab Results - Last 24 Hours (Table) 06/21/21 06/23/21 06/23/21 Range/Units 12:50 16:43 20:17 RBC (4.10-5.20) X 10*6/uL Hgb (12.0-15.0) g/dL Hct (37.2-46.3) % MCV (80.0-97.0) fL MCHC (32.0-37.0) g/dL RDW (11.5-14.5) % Absolute Nucleated RBC (0.00-0.00) X 10*3/uL Immature Gran # (0.00-0.04) X 10*3/uL NRBC/100 WBC Diff (0.0-0.0) /100 WBCS Creatinine (0.6-1.5) mg/dL Est GFR (CKD-EPI)AfAm (60.0-200.0) Est GFR (CKD-EPI)NonAf (60.0-200.0) POC Glucose (mg/dL) 110 H 120 H (75-99) mg/dL Calcium (8.7-10.3) mg/dL Iron (50-170) ug/dL Transferrin (204.0-354.0) mg/dL Ferritin (10.0-291.0) ng/mL Vitamin B12 (200.0-944.0) pg/mL Crossmatch See Detail 06/24/21 06/24/21 06/24/21 Range/Units 04:39 04:39 04:39 RBC 2.14 L (4.10-5.20) X 10*6/uL Hgb 6.4 L* (12.0-15.0) g/dL Hct 21.1 L (37.2-46.3) % MCV 98.6 H (80.0-97.0) fL MCHC 30.3 L (32.0-37.0) g/dL RDW 16.7 H (11.5-14.5) % Absolute Nucleated RBC 0.02 H (0.00-0.00) X 10*3/uL Immature Gran # 0.40 H (0.00-0.04) X 10*3/uL NRBC/100 WBC Diff 0.2 H (0.0-0.0) /100 WBCS Creatinine 1.6 H (0.6-1.5) mg/dL Est GFR (CKD-EPI)AfAm 36.5 L (60.0-200.0) Est GFR (CKD-EPI)NonAf 31.5 L (60.0-200.0) POC Glucose (mg/dL) (75-99) mg/dL Calcium 8.5 L (8.7-10.3) mg/dL Iron 34 L (50-170) ug/dL Transferrin 163.0 L (204.0-354.0) mg/dL Ferritin 525.0 H (10.0-291.0) ng/mL Vitamin B12 1066.0 H (200.0-944.0) pg/mL Crossmatch 06/24/21 Range/Units 11:11 RBC (4.10-5.20) X 10*6/uL Hgb (12.0-15.0) g/dL Hct (37.2-46.3) % MCV (80.0-97.0) fL MCHC (32.0-37.0) g/dL RDW (11.5-14.5) % Absolute Nucleated RBC (0.00-0.00) X 10*3/uL Immature Gran # (0.00-0.04) X 10*3/uL NRBC/100 WBC Diff (0.0-0.0) /100 WBCS Creatinine (0.6-1.5) mg/dL Est GFR (CKD-EPI)AfAm (60.0-200.0) Est GFR (CKD-EPI)NonAf (60.0-200.0) POC Glucose (mg/dL) 102 H (75-99) mg/dL Calcium (8.7-10.3) mg/dL Iron (50-170) ug/dL Transferrin (204.0-354.0) mg/dL Ferritin (10.0-291.0) ng/mL Vitamin B12 (200.0-944.0) pg/mL Crossmatch Microbiology - Last 24 Hours (Table) 06/19/21 03:45 Blood Culture - Preliminary Blood No Growth after 120 hours 06/19/21 03:30 Blood Culture - Preliminary Blood No Growth after 120 hours
[2021-06-24 16:16] LABS: Glucose,Whole Blood 103 mg/dL (75-99)
[2021-06-24] MEDS: LACTATED RINGERS 1,000 ML IV SCH (16:57)
[2021-06-24] MEDS ORDERED: LACTATED RINGERS 1,000 ML IV SCH (17:30)
[2021-06-24 20:01] LABS: Glucose,Whole Blood 128 mg/dL (75-99)
[2021-06-24] MEDS: METOPROLOL SUCCINATE (ER) 25 MG TAB.ER.24H PO SCH (20:42)
[2021-06-24] MEDS: PREGABALIN 50 MG CAP PO SCH (20:42)
[2021-06-25 02:11] LABS: Glucose,Whole Blood 94 mg/dL (75-99)
[2021-06-25] MEDS: LEVOTHYROXINE 88 MCG TAB PO SCH (05:29)
[2021-06-25 06:56] LABS: Glucose,Whole Blood 101 mg/dL (75-99)
[2021-06-25] MEDS ORDERED: IV FLUID CONTINUATION 1,000 ML IV ONE (07:16)
[2021-06-25] MEDS ORDERED: LIDOCAINE 1% INJ 10MG/ML (20 ML MDV) ONE (07:30)
[2021-06-25] MEDS ORDERED: PROPOFOL 10 MG/ML 20 ML VIAL IV ONE (07:30)
[2021-06-25] MEDS: INSULIN ASPART (NovoLOG) 100 UNIT/ML VIAL SQ SCH ×2 (07:34→12:03)
--- NOTE | 2021-06-25 07:40 | P.PCN ---
Date of Procedure: 06/25/21 Procedure(s) Performed: BRIEF HISTORY: Patient is a 81-year-old, pleasant, white female scheduled for an upper endoscopy as a part of evaluation of anemia and hemoglobin of 6.5 g/dL and intermittent black stools. Patient has prior history of peptic ulcer disease several years ago. Her last EGD and colonoscopy via 6 years ago. She status post 2 units of PRBC transfusion. PROCEDURE PERFORMED: Esophagogastroduodenoscopy with biopsy. PREOPERATIVE DIAGNOSIS: Anemia and intermittent black stools. IV sedation per anesthesia. PROCEDURE: After informed consent was obtained, the patient was brought into the endoscopy unit. IV sedation was administered by Anesthesia under continuous monitoring. Initially the Olympus GIF-140 video endoscope was inserted into the mouth. Esophagus intubated without any difficulty. It was gradually advanced into the stomach and duodenum and carefully examined. The bulb and the second part of the duodenum appeared normal. Abscesses were done from the duodenum to rule out celiac disease. The scope at this time was withdrawn to the stomach, adequately insufflated with air, and upon careful examination, mucosa of the antrum, multiple scattered erosions and biopsies were done from this area. The body, cardia and the fundus appeared normal. The scope was then withdrawn into the esophagus. The GE junction was located at 39 cm from the incisors. The esophagus appeared normal. There were no erosions or ulcerations seen and the patient tolerated the procedure well. IMPRESSION: 1.. Scattered antral erosions but no evidence of peptic ulcer disease. 2. No evidence of esophagitis or angiectasia. RECOMMENDATIONS: The findings of this examination were discussed with the patient . She was advised to follow with the biopsy results. Monitor CBC daily. Continue Protonix 40 mg daily. Advance diet as tolerated.
[2021-06-25 08:59] LABS: HCT 24.9 % (37.2-46.3); HGB 7.7 g/dL (12.0-15.0); MCH 29.7 pg (27.0-32.0); MCHC 30.9 g/dL (32.0-37.0); MCV 96.1 fL (80.0-97.0); Mean Platelet Volume 11.6 fL (9.5-12.2); NRBC Per 100 WBC 0.3 /100 WBCS (0.0-0.0); Platelet Count 212 X 10*3/uL (140-440); RBC 2.59 X 10*6/uL (4.10-5.20); RDW 16.7 % (11.5-14.5); WBC 10.35 X 10*3/uL (4.50-10.00)
[2021-06-25] MEDS: ASPIRIN 81 MG PO SCH (09:06)
[2021-06-25] MEDS: amLODIPine 2.5 MG TAB PO SCH (09:06)
[2021-06-25] MEDS: HYDROcodone/APAP 7.5-325MG 1 EACH TAB PO PRN (09:09)
[2021-06-25 09:13] LABS: African American GFR (CKD) 41.3 (60.0-200.0); Anion Gap 14.1 mmol/L (10.00-18.00); BUN/Creat Ratio 18.07 Ratio (12.00-20.00); Blood Urea Nitrogen 25.3 mg/dL (9.0-27.0); Calcium 8.2 mg/dL (8.7-10.3); Carbon Dioxide 23.9 mmol/L (20.0-27.5); Magnesium 1.5 mg/dL (1.5-2.4); Non-African American GFR(CKD) 35.6 (60.0-200.0); Potassium 4.3 mmol/L (3.5-5.5)
--- NOTE | 2021-06-25 10:42 | P.PN ---
Subjective Patient is seen in follow-up for acute kidney injury on chronic kidney disease. Renal function improved. No active bleeding. Hemoglobin 7.7 today. Denies chest pain or shortness of breath. No active bleeding. EGD done this morning. Vital signs are stable. General: Awake and alert. HEENT: Head exam is unremarkable. LUNGS: Breath sounds decreased. HEART: Rate and Rhythm are regular. ABDOMEN: Soft, no distention. EXTREMITITES: No edema. Objective - Vital Signs Vital signs: Vital Signs Temp 98.3 F 06/25/21 08:00 Pulse 66 06/25/21 08:00 Resp 14 06/25/21 08:00 BP 149/69 06/25/21 08:00 Pulse Ox 97 06/25/21 08:00 Intake & Output 06/24/21 06/25/21 06/25/21 18:59 06:59 18:59 Intake Total 310 900 Balance 310 900 Weight 83.4 kg Intake: IV 900 Blood Product 310 Rc As-1 Unit 310 [id number] Other: Voiding Method Toilet Toilet Toilet # Voids 4 6 # Bowel Movements 1 - Labs CBC & Chem 7: 06/25/21 03:46 06/25/21 03:46 Labs: Abnormal Lab Results - Last 24 Hours (Table) 06/21/21 06/24/21 06/24/21 Range/Units 12:50 04:39 04:39 WBC (4.50-10.00) X 10*3/uL RBC 2.14 L (4.10-5.20) X 10*6/uL Hgb 6.4 L* (12.0-15.0) g/dL Hct 21.1 L (37.2-46.3) % MCV 98.6 H (80.0-97.0) fL MCHC 30.3 L (32.0-37.0) g/dL RDW 16.7 H (11.5-14.5) % Absolute Nucleated RBC 0.02 H (0.00-0.00) X 10*3/uL Immature Gran # 0.40 H (0.00-0.04) X 10*3/uL NRBC/100 WBC Diff 0.2 H (0.0-0.0) /100 WBCS Est GFR (CKD-EPI)AfAm (60.0-200.0) Est GFR (CKD-EPI)NonAf (60.0-200.0) POC Glucose (mg/dL) (75-99) mg/dL Calcium (8.7-10.3) mg/dL Iron 34 L (50-170) ug/dL Transferrin 163.0 L (204.0-354.0) mg/dL Ferritin 525.0 H (10.0-291.0) ng/mL Vitamin B12 1066.0 H (200.0-944.0) pg/mL Crossmatch See Detail 06/24/21 06/24/21 06/24/21 Range/Units 11:11 16:13 19:59 WBC (4.50-10.00) X 10*3/uL RBC (4.10-5.20) X 10*6/uL Hgb (12.0-15.0) g/dL Hct (37.2-46.3) % MCV (80.0-97.0) fL MCHC (32.0-37.0) g/dL RDW (11.5-14.5) % Absolute Nucleated RBC (0.00-0.00) X 10*3/uL Immature Gran # (0.00-0.04) X 10*3/uL NRBC/100 WBC Diff (0.0-0.0) /100 WBCS Est GFR (CKD-EPI)AfAm (60.0-200.0) Est GFR (CKD-EPI)NonAf (60.0-200.0) POC Glucose (mg/dL) 102 H 103 H 128 H (75-99) mg/dL Calcium (8.7-10.3) mg/dL Iron (50-170) ug/dL Transferrin (204.0-354.0) mg/dL Ferritin (10.0-291.0) ng/mL Vitamin B12 (200.0-944.0) pg/mL Crossmatch 06/25/21 06/25/21 06/25/21 Range/Units 03:46 03:46 06:54 WBC 10.35 H (4.50-10.00) X 10*3/uL RBC 2.59 L (4.10-5.20) X 10*6/uL Hgb 7.7 L (12.0-15.0) g/dL Hct 24.9 L (37.2-46.3) % MCV (80.0-97.0) fL MCHC 30.9 L (32.0-37.0) g/dL RDW 16.7 H (11.5-14.5) % Absolute Nucleated RBC 0.03 H (0.00-0.00) X 10*3/uL Immature Gran # (0.00-0.04) X 10*3/uL NRBC/100 WBC Diff 0.3 H (0.0-0.0) /100 WBCS Est GFR (CKD-EPI)AfAm 41.3 L (60.0-200.0) Est GFR (CKD-EPI)NonAf 35.6 L (60.0-200.0) POC Glucose (mg/dL) 101 H (75-99) mg/dL Calcium 8.2 L (8.7-10.3) mg/dL Iron (50-170) ug/dL Transferrin (204.0-354.0) mg/dL Ferritin (10.0-291.0) ng/mL Vitamin B12 (200.0-944.0) pg/mL Crossmatch Microbiology - Last 24 Hours (Table) 06/19/21 03:30 Blood Culture - Final Blood No Growth after 144 hours 06/19/21 03:45 Blood Culture - Final Blood No Growth after 144 hours Assessment and Plan Plan: Assessment: 1. Acute kidney injury mostly prerenal secondary to anemia and hypovolemia. Improving. Creatinine 1.4 today. 2. 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 3. Acute blood loss anemia status post blood transfusion. EGD done this morning showed scattered antral erosions with no evidence of peptic ulcer disease. On Aranesp. 4. Hyperkalemia secondary to acute kidney injury, acidosis and GI bleed. JESICA inhibitor held. Potassium stable at 4.3 today. 5. Hypertension with chronic kidney disease. Stable. 6. Diabetes. 7. Metabolic acidosis secondary to acute kidney injury. Resolved. 8. UTI on antibiotics. CAT scan suggestive of right-sided pyelonephritis. 9. Right-sided hydronephrosis. Natarajan catheter discontinued. Renal function improving. Monitor. Consider urology consult. 10. Hypomagnesemia from poor intake. Plan: Maintain gentle IV hydration. Avoid nephrotoxins. Continue to monitor renal function and urine output. Replace magnesium.
[2021-06-25 11:28] LABS: Glucose,Whole Blood 173 mg/dL (75-99)
[2021-06-25] MEDS: MAGNESIUM SULFATE-D5W PMX 1 GM in DEXTROSE/WATER 1 100ML.BAG IVPB SCH ×2 (12:03→13:08)
[2021-06-25] MEDS: LACTATED RINGERS 1,000 ML IV SCH (13:11)
[2021-06-25 14:25] VITALS: BP 127/56; PULSE 69; RESP 16; TEMP 98
--- NOTE | 2021-06-25 16:25 | P.DS ---
Providers Date of admission: 06/19/21 03:45 Expected date of discharge: 06/25/21 Attending physician: Tacos Bunch MD Consults: 06/19/21 03:48 Consult Physician Stat Consulting Provider: Javi Spain Consult Reason/Comments: Hyperkalemia, UTI Do you want consulting provider notified?: Already Contacted 06/19/21 06:00 Consult Physician Stat Consulting Provider: Marisa Rocha Consult Reason/Comments: Hyperkalemia Do you want consulting provider notified?: Yes 06/24/21 08:17 Consult Physician Routine Consulting Provider: Laura Heart Consult Reason/Comments: GI Bleed Do you want consulting provider notified?: Yes Primary care physician: KERLINE Wadsworth Hospital Course: #1 urinary tract infection #2 acute kidney injury possibly prerenal #3 severe hyperkalemia-resolved #4 diabetes mellitus #5 acute blood loss anemia #6 GI bleed #7 history of peptic ulcer disease as per patient. 81-year-old female with diabetes mellitus, hypertension presented with complaint of bilateral leg weakness and difficulty walking and generalized weakness of 2 days' duration. In the ED she was found to have hyperkalemia with EKG changes showing quite QRS. Was given potassium lowering cocktails and kept on cardiac monitoring. She was also found to have acute anemia, but initial occult blood testing was negative. Pt had required total of 2U PRBCs during hospitalization, and repeat FOBT was positive. Pt underwent EGD on 06/25 with findings negative for bleeding. Pts Hgb responded appropriately to transfusions, and she returned to baseline, so she was discharged home with home care and PCP/Nephrology f/u. Regarding her hyperkalemia and JM, she was treated conservatively without the need for dialysis. IV bicarb gtt, kayexalate, and lokelma. K responded well. By day of discharge patient returned to her baseline creatinine patient was started on darbepoetin by nephrology. Her lisinopril and Lasix were discontinued. I spent 40 minutes corrugating this context discharge Gen: awake, alert HEENT: normocephalic, atraumatic, good hearing acuity, moist mucous membranes Resp: good air exchange, breathing comfortably with no accessory muscle use CVS: good distal perfusion x 4, GI: soft, NTTP, ND : no SPT, no CVAT, correia catheter is present MSK: no pitting edema, no clubbing Neuro: non-focal, moving all extremities Psych: cooperative, euthymic mood Patient Condition at Discharge: Good Plan - Discharge Summary Discharge Rx Participant: Yes New Discharge Prescriptions: New Cefdinir [Omnicef] 300 mg PO Q12HR #6 capsule Darbepoetin Mathieu [Aranesp] 40 mcg SQ Q7D each Continue Tolterodine Tartrate [Detrol LA] 4 mg PO DAILY Ferrous Sulfate [Iron (65 MG Elemental)] 325 mg PO DAILY Baclofen [Lioresal] 10 mg PO HS PRN PRN Reason: NECK PAIN Pregabalin [Lyrica] 50 mg PO HS Omeprazole 40 mg PO DAILY Dulaglutide [Trulicity] 1.5 mg SQ Q7D glipiZIDE XL [Glucotrol XL] 5 mg PO DAILY Aspirin EC [Ecotrin Low Dose] 81 mg PO DAILY amLODIPine [Norvasc] 2.5 mg PO DAILY Albuterol Inhaler [Ventolin Hfa Inhaler] 2 puff INHALATION RT-Q4H PRN PRN Reason: Shortness Of Breath Metoprolol Succinate [Toprol XL] 25 mg PO HS Levothyroxine Sodium [Synthroid] 88 mcg PO DAILY HYDROcodone/APAP 7.5-325MG [[place] 7.5-325] 1 tab PO Q8H PRN PRN Reason: Pain Discontinued lisinopriL [Zestril] 2.5 mg PO DAILY Furosemide [Lasix] 20 mg PO DAILY PRN PRN Reason: Edema Discharge Medication List Albuterol Inhaler [Ventolin Hfa Inhaler] 2 puff INHALATION RT-Q4H PRN 06/19/21 [History] Aspirin EC [Ecotrin Low Dose] 81 mg PO DAILY 06/19/21 [History] Baclofen [Lioresal] 10 mg PO HS PRN 06/19/21 [History] Dulaglutide [Trulicity] 1.5 mg SQ Q7D 06/19/21 [History] Ferrous Sulfate [Iron (65 MG Elemental)] 325 mg PO DAILY 06/19/21 [History] HYDROcodone/APAP 7.5-325MG [[place] 7.5-325] 1 tab PO Q8H PRN 06/19/21 [History] Levothyroxine Sodium [Synthroid] 88 mcg PO DAILY 06/19/21 [History] Metoprolol Succinate [Toprol XL] 25 mg PO HS 06/19/21 [History] Omeprazole 40 mg PO DAILY 06/19/21 [History] Pregabalin [Lyrica] 50 mg PO HS 06/19/21 [History] Tolterodine Tartrate [Detrol LA] 4 mg PO DAILY 06/19/21 [History] amLODIPine [Norvasc] 2.5 mg PO DAILY 06/19/21 [History] glipiZIDE XL [Glucotrol XL] 5 mg PO DAILY 06/19/21 [History] Cefdinir [Omnicef] 300 mg PO Q12HR #6 capsule 06/25/21 [Rx] Darbepoetin Mathieu [Aranesp] 40 mcg SQ Q7D each 06/25/21 [Rx] Follow up Appointment(s)/Referral(s): Naeem Herr MD [REFERRING] - 06/28/21 11:20 am [facility], [NON-STAFF] - As Needed ([facility] will call you to schedule your in home nursing and physical therapy visits. ) Discharge Disposition: HOME WITH HOME HEALTH SERVICES
== END 2021-06-25 15:30 | disposition home health service (06) | DRG 872 ==
LOC: EC 00:14 → 2SICU 03:45 → 4SSUR 06-20 14:51
PROVIDERS: ADMIT Internal Medicine; ATTEND Internal Medicine
PROC: 30233N1 Transfusion of Nonautologous Red Blood Cells into Peripheral Vein, Percutaneous Approach (ICD-10-PCS; principal; 2021-06-19)
PROC: 0DB78ZX Excision of Stomach, Pylorus, Via Natural or Artificial Opening Endoscopic, Diagnostic (ICD-10-PCS; 2021-06-25)
PROC: 0DB98ZX Excision of Duodenum, Via Natural or Artificial Opening Endoscopic, Diagnostic (ICD-10-PCS; 2021-06-25)
DX: A41.9 Sepsis, unspecified organism (principal); D62 Acute posthemorrhagic anemia; E87.2 Acidosis; K92.2 Gastrointestinal hemorrhage, unspecified; N13.6 Pyonephrosis; N17.9 Acute kidney failure, unspecified; D50.9 Iron deficiency anemia, unspecified; E03.9 Hypothyroidism, unspecified; E11.22 Type 2 diabetes mellitus with diabetic chronic kidney disease; E78.5 Hyperlipidemia, unspecified; E83.42 Hypomagnesemia; E86.1 Hypovolemia; E87.5 Hyperkalemia; I12.9 Hypertensive chronic kidney disease with stage 1 through stage 4 chronic kidney disease, or unspecified chronic kidney disease; I44.0 Atrioventricular block, first degree; I44.7 Left bundle-branch block, unspecified; K21.9 Gastro-esophageal reflux disease without esophagitis; Z66 Do not resuscitate; Z20.822 Contact with and (suspected) exposure to COVID-19; M19.90 Unspecified osteoarthritis, unspecified site; M79.7 Fibromyalgia; M54.9 Dorsalgia, unspecified; M54.2 Cervicalgia; G89.29 Other chronic pain; N18.32 Chronic kidney disease, stage 3b; Z91.81 History of falling; Z79.82 Long term (current) use of aspirin; Z79.84 Long term (current) use of oral hypoglycemic drugs; Z79.890 Hormone replacement therapy; Z79.899 Other long term (current) drug therapy; Z87.11 Personal history of peptic ulcer disease; Z95.2 Presence of prosthetic heart valve; Z98.890 Other specified postprocedural states; Z88.1 Allergy status to other antibiotic agents; Z88.0 Allergy status to penicillin; Z88.2 Allergy status to sulfonamides
CPT/HCPCS: 36415; 43239; 71045; 74176; 76770; 80048; 80053; 81001; 82272; 82607; 82728; 82746; 83540; 83550; 83605; 83735; 84100; 84132; 84443; 84484; 85025; 85027; 85610; 85730; 86850; 86900; 86901; 86920; 87040; 87086; 87635; 93005; 94644; 96361; 96365; 96368; 96375; 99291

== ENCOUNTER 2021-10-15 16:04 | Emergency (ER) | payer MEDICARE, BC ==
[2021-10-15 16:13] VITALS: RESP 18
[2021-10-15] MEDS ORDERED: ORPHENADRINE 30 MG/ML 2 ML VIAL IM STA (16:48)
--- NOTE | 2021-10-15 17:02 | ED ---
Extremity Problem HPI - General Chief complaint: Extremity Problem,Nontraumatic Stated complaint: right leg pain Time Seen by Provider: 10/15/21 16:18 Source: patient Mode of arrival: ambulatory Limitations: no limitations - History of Present Illness Initial comments: Patient is a 81-year-old female presenting with chief complaint of right leg and hip pain. She has a history of diabetes, hypertension, and polymyalgia rheumatica. Patient states the pain started around 3:00 this morning and feels like a soreness. Pain has stayed at a constant level throughout the day. It starts near the level of the hip, wraps around to the side of the leg, and stops at the level of the knee. Patient still has full range of motion and is able to ambulate with a walker, which she uses on a regular basis. Patient takes [place] for pain control, states that this did not decrease her pain. She denies any injury. Denies any new onset numbness, tingling, weakness. Denies any new back pain, loss of bowel or bladder control, saddle paresthesia. Denies fever, chills, nausea, vomiting, dysuria, hematuria, urgency, frequency. - Related Data Home Medications Medication Instructions Recorded Confirmed Albuterol Inhaler [Ventolin Hfa 2 puff INHALATION RT-Q4H PRN 06/19/21 10/09/21 Inhaler] Baclofen [Lioresal] 10 mg PO HS PRN 06/19/21 10/09/21 Dulaglutide [Trulicity] 1.5 mg SQ Q7D 06/19/21 10/09/21 Ferrous Sulfate [Iron (65 MG 325 mg PO DAILY 06/19/21 10/09/21 Elemental)] HYDROcodone/APAP 7.5-325MG [[place] 1 tab PO Q8H PRN 06/19/21 10/09/21 7.5-325] Levothyroxine Sodium [Synthroid] 88 mcg PO DAILY 06/19/21 10/09/21 Metoprolol Succinate [Toprol XL] 25 mg PO HS 06/19/21 10/09/21 Omeprazole 40 mg PO DAILY 06/19/21 10/09/21 Pregabalin [Lyrica] 25 mg PO BID 06/19/21 10/09/21 Tolterodine Tartrate [Detrol LA] 4 mg PO DAILY 06/19/21 10/09/21 amLODIPine [Norvasc] 5 mg PO DAILY 06/19/21 10/09/21 Previous Rx's Medication Instructions Recorded Cefdinir [Omnicef] 300 mg PO Q12HR #6 capsule 06/25/21 Cephalexin [Keflex] 500 mg PO Q12HR 5 Days #10 cap 10/15/21 Allergies Allergy/AdvReac Type Severity Reaction Status Date / Time Penicillins Allergy Swelling Verified 10/15/21 16:13 Sulfa (Sulfonamide Allergy Unknown Verified 10/15/21 16:13 Antibiotics) clindamycin AdvReac Nausea & Verified 10/15/21 16:13 Vomiting morphine AdvReac Nausea & Verified 10/15/21 16:13 Vomiting Review of Systems ROS Statement: Those systems with pertinent positive or pertinent negative responses have been documented in the HPI. ROS Other: All systems not noted in ROS Statement are negative. Past Medical History Past Medical History: Diabetes Mellitus, Hypertension Additional Past Medical History / Comment(s): Type2, hypothyroidism, chronic back/neck pain, fibromyalgia History of Any Multi-Drug Resistant Organisms: None Reported Past Surgical History: Unable to Obtain Additional Past Surgical History / Comment(s): neck surgery, c-spine surgery, heart valve replacement Past Anesthesia/Blood Transfusion Reactions: No Reported Reaction Past Psychological History: No Psychological Hx Reported Smoking Status: Never smoker - Past Family History Family Family Medical History: No Reported History General Exam Limitations: no limitations General appearance: alert, in no apparent distress Head exam: Present: atraumatic, normocephalic, normal inspection Eye exam: Present: normal appearance, EOMI. Absent: scleral icterus, periorbital swelling Neck exam: Present: normal inspection Right Hip exam: Present: full ROM, tenderness Upper Leg exam: Present: full ROM, tenderness. Absent: swelling, dislocation Knee exam: Present: normal inspection, full ROM. Absent: tenderness, swelling Lower Leg exam: Present: normal inspection, full ROM. Absent: tenderness, swelling Neurovascular tendon exam: Present: no vascular compromise. Absent: pulse deficit, motor deficit, sensory deficit Neurological exam: Present: alert, oriented X3, CN II-XII intact Psychiatric exam: Present: normal affect, normal mood Skin exam: Present: warm, dry, intact, normal color. Absent: rash Course Vital Signs 07/05/22 07/05/22 16:08 18:47 Temperature 97.6 F 97.9 F Pulse Rate 72 69 Respiratory 18 18 Rate Blood Pressure 136/55 133/54 O2 Sat by Pulse 100 99 Oximetry Medical Decision Making - Medical Decision Making Patient is a 81-year-old female presenting with chief complaint of right hip and leg pain. Symptoms started this morning, states that the pain as a soreness, located behind the hip where the pain wraps around to the side of the leg and stops at the level of the knee. Patient has full range of motion and is able to ambulate with her walker as she normally does. On examination there is some muscle tightness felt on palpation, full range of motion and sensation, distal pulses are palpated. X-rays of the hip and femur are unremarkable. Patient was given Norflex and lidocaine patch, which she states improved the pain. UA shows signs of UTI, we will treat with Keflex which patient states she has tolerated in the past. She appears stable for discharge with outpatient follow- up at this time. Follow-up with PCP in one to 2 days. Report back to ER with any new or worsening symptoms. I discussed return parameters answered all questions. Patient conveyed verbal understanding and agreed to the plan. I discussed this case with my attending Dr. Garcia - Lab Data Lab Results 10/15/21 Range/Units 17:06 Urine Color Light Yellow Urine Appearance Turbid H (Clear) Urine pH 6.0 (5.0-8.0) Ur Specific [place] 1.016 (1.001-1.035) Urine Protein 1+ H (Negative) Urine Glucose (UA) Negative (Negative) Urine Ketones Negative (Negative) Urine Blood Moderate H (Negative) Urine Nitrite Negative (Negative) Urine Bilirubin Negative (Negative) Urine Urobilinogen <2.0 (<2.0) mg/dL Ur Leukocyte Esterase Large H (Negative) Urine RBC 49 H (0-5) /hpf Urine WBC >182 H (0-5) /hpf Urine WBC Clumps Many H (None) /hpf Disposition Clinical Impression: Hip pain Disposition: HOME SELF-CARE Condition: Good Instructions (If sedation given, give patient instructions): Hip Pain (ED) Additional Instructions: Follow-up with PCP 1-2 days. Report back to ER with any new or worsening symptoms. Take medication as prescribed. Prescriptions: Cephalexin [Keflex] 500 mg PO Q12HR 5 Days #10 cap Is patient prescribed a controlled substance at d/c from ED?: No Referrals: Naeem Herr MD [Primary Care Provider] - 1-2 days Time of Disposition: 18:39
[2021-10-15 17:29] LABS: Appearance,Urine Turbid (Clear); Bilirubin,Urine Negative (Negative); Blood,Urine Moderate (Negative); Color,Urine Light Yellow; Glucose,Urine (UA) Negative (Negative); Ketones,Urine Negative (Negative); Leukocyte Esterase,Urine Large (Negative); Nitrite,Urine Negative (Negative); Protein,Urine 1+ (Negative); RBC,Urine 49 /hpf (0-5); Specific Gravity,Urine 1.016 (1.001-1.035); Urobilinogen,Urine <2.0 mg/dL (<2.0); WBC,Urine >182 /hpf (0-5)
--- NOTE | 2021-10-15 17:54 | XR ---
EXAMINATION TYPE: XR femur RT DATE OF EXAM: 10/15/2021 COMPARISON: NONE HISTORY: Pain TECHNIQUE: 4 views FINDINGS: There is right knee prosthesis. Components appear in anatomic position. Hip joint is intact . Hip joint space is fairly normal. IMPRESSION: Negative right femur exam. No fracture seen.
--- NOTE | 2021-10-15 18:00 | XR ---
EXAMINATION TYPE: XR Hip RT and AP Pelvis DATE OF EXAM: 10/15/2021 COMPARISON: NONE HISTORY: Pain TECHNIQUE: 3 views FINDINGS: The pelvic ring appears intact. There is right-sided ureteral stent. Proximal right femur a ppears intact. No hip fracture seen. Sacroiliac joints appear intact proximal left femur is intact IMPRESSION: No acute abnormality of the pelvis and right hip. No fracture seen.
[2021-10-15] MEDS ORDERED: LIDOCAINE 5% PATCH TOPICAL STA (18:12)
[2021-10-15] MEDS ORDERED: CEPHALEXIN 500 MG CAP PO STA (18:20)
[2021-10-15 18:50] VITALS: BP 133/54; PULSE 69; TEMP 97.9
== END 2021-10-15 19:00 | disposition home or self-care (01) ==
LOC: EC 16:04
DX: M25.551 Pain in right hip (principal); M79.604 Pain in right leg; I10 Essential (primary) hypertension; E11.9 Type 2 diabetes mellitus without complications; E03.9 Hypothyroidism, unspecified; Z88.0 Allergy status to penicillin; Z88.2 Allergy status to sulfonamides; Z88.1 Allergy status to other antibiotic agents; Z88.6 Allergy status to analgesic agent; Z79.899 Other long term (current) drug therapy
CPT/HCPCS: 99283; 96372; 81001; 87086; 73502; 73552; J2360

== ENCOUNTER → 2022-02-21 | Outpatient (CLI) | payer MEDICARE, BC ==
--- NOTE | 2022-02-22 10:38 | PE ---
EXAMINATION TYPE: PET CT fusion skull to thigh DATE OF EXAM: 02/21/2022 CLINICAL INDICATION:Female, 81 years old with history of R91.8; cancer TECHNIQUE: Following the intravenous administration of 10.5 mCi of F-18 FDG, whole body images are performed from the skull base to the midthigh. Images are reviewed on the computer in the coronal, a xial, and sagittal planes. Reconstructed rotating images are created on independent workstation and reviewed on the computer. A non-contrast CT is performed in conjunction with the PET scan. Glucose level was 6 mg/dL COMPARISON: CT 01/27/2022, PET/CT None, FINDINGS: Mediastinal SUV mean is 1.6. Hepatic parenchyma SUV mean is 2.3. SKULL BASE AND NECK: No suspicious FDG activity. CHEST, MEDIASTINUM, AND HILAR REGION: Scattered pulmonary nodules which are prominently subcentimeter the largest in the left lower lobe me asuring 6 mm Max SUV 1.0. ABDOMEN AND PELVIS: No suspicious FDG activity. OSSEOUS STRUCTURES: No suspicious FDG activity. OTHER CT: Bilateral aphakia atherosclerosis of the carotid bifurcations, and arterial vasculature and coronary arteries. Aortic valve repair changes. The heart is mildly enlarged for size. Right uretera l stent with tips in appropriate position. Mild degenerative bladder wall thickening circumferentiall y measuring up to 7 mm which is partially under distended. Fat-containing umbilical hernia. IMPRESSION: Scattered pulmonary nodules which do not definitely demonstrate increased FDG activity but may be fal se negatives given their size. Attention surveillance CT chest in 3-6 months.
== END | disposition home or self-care (01) ==
LOC: RADPETMAIN 12:23
PROVIDERS: ATTEND Internal Medicine
DX: R91.8 Other nonspecific abnormal finding of lung field (principal)
CPT/HCPCS: 78815; A9552

== ENCOUNTER → 2022-06-25 | Outpatient (CLI) | payer MEDICARE, BC ==
[2022-06-25 14:20] LABS: Creatinine,Urine Random 69.2 mg/dL
[2022-06-25 14:28] LABS: Protein/Creatinine Ratio,Urine 4.436
[2022-06-25 18:26] LABS: % Iron Saturation 21.58 (12.00-45.00); African American GFR (CKD) 25.6 (60.0-200.0); Anion Gap 9.3 mmol/L (10.00-18.00); BUN/Creat Ratio 23.53 Ratio (12.00-20.00); Basophils # (A) 0.07 X 10*3/uL (0.00-0.10); Basophils % (A) 0.9 %; Blood Urea Nitrogen 48.7 mg/dL (9.0-27.0); Eosinophils # (A) 0.36 X 10*3/uL (0.04-0.35); Eosinophils % (A) 4.4 %; HCT 27.2 % (37.2-46.3); HGB 8.1 g/dL (12.0-15.0); Immature Grans, Automated 0.7 %; Lymphocytes # (A) 1.62 X 10*3/uL (0.90-5.00); Lymphocytes % (A) 19.8 %; MCHC 29.8 g/dL (32.0-37.0); MCV 100.7 fL (80.0-97.0); Magnesium 2.1 mg/dL (1.5-2.4); Mean Platelet Volume 13.5 fL (9.5-12.2); Monocytes # (A) 0.51 X 10*3/uL (0.20-1.00); Monocytes % (A) 6.2 %; NRBC Per 100 WBC 0.2 /100 WBCS (0.0-0.0); Neutrophils # (A) 5.55 X 10*3/uL (1.80-7.70); Non-African American GFR(CKD) 22.1 (60.0-200.0); Platelet Count 208 X 10*3/uL (140-440); Potassium 5.1 mmol/L (3.5-5.5); RDW 15.3 % (11.5-14.5); WBC 8.17 X 10*3/uL (4.50-10.00)
[2022-06-25 21:36] LABS: Appearance,Urine Turbid (Clear); Bilirubin,Urine Negative (Negative); Blood,Urine Large (Negative); Color,Urine Yellow (Yellow); Ketones,Urine Negative (Negative); Nitrite,Urine Negative (Negative); Specific Gravity,Urine 1.014 (1.001-1.030); Urobilinogen,Urine 0.2 (0.2,1.0)
[2022-06-25 22:50] LABS: Bacteria,Urine Trace /HPF (None Seen)
[2022-06-26 00:24] LABS: Urine Creatinine 71.6 mg/dL (28.0-217.0)
== END | disposition home or self-care (01) ==
LOC: LABWHC1 11:42
PROVIDERS: ATTEND Nurse Practitioner Acute Care
DX: E11.22 Type 2 diabetes mellitus with diabetic chronic kidney disease (principal); N18.31 Chronic kidney disease, stage 3a
CPT/HCPCS: 36415; 80048; 81001; 82043; 82570; 82728; 83036; 83540; 83550; 83735; 84100; 84156; 85025; 87086

== ENCOUNTER → 2022-08-06 | Outpatient (CLI) | payer MEDICARE, BC ==
[2022-08-06 10:54] LABS: Potassium 5.7 mmol/L (3.5-5.1)
[2022-08-06 10:55] LABS: Anisocytosis Slight; Basophils % (A) 1 %; Eosinophils # (A) 0.3 k/uL (0-0.7); Eosinophils % (A) 5 %; HCT 28.6 % (34.0-46.0); HGB 8.7 gm/dL (11.4-16.0); Hypochromasia Slight; Lymphocytes # (A) 1.1 k/uL (1.0-4.8); Lymphocytes % (A) 16 %; MCH 29.8 pg (25.0-35.0); MCHC 30.3 g/dL (31.0-37.0); MCV 98.5 fL (80.0-100.0); Macrocytosis Slight; Mean Platelet Volume 10.4; Monocytes # (A) 0.2 k/uL (0-1.0); Monocytes % (A) 4 %; Neutrophils # (A) 4.7 k/uL (1.3-7.7); Neutrophils % (A) 73 %; Platelet Count 205 k/uL (150-450); RBC 2.91 m/uL (3.80-5.40); RDW 16.9 % (11.5-15.5); WBC 6.5 k/uL (3.8-10.6)
[2022-08-06 10:58] LABS: Partial Thromboplastin Time 25.8 sec (22.0-30.0); Prothrombin Time 10.8 sec (9.0-12.0)
== END | disposition home or self-care (01) ==
LOC: LABWHC1 09:42
PROVIDERS: ATTEND Internal Medicine
DX: R80.9 Proteinuria, unspecified (principal)
CPT/HCPCS: 36415; 80051; 82565; 84520; 85025; 85610; 85730; 86850; 86900; 86901

== ENCOUNTER 2022-08-07 08:04 | Day surgery (SDC) | payer MEDICARE, BC ==
[2022-08-07 08:26] VITALS: RESP 16
[2022-08-07 08:45] LABS: Glucose,Whole Blood 86 mg/dL (70-110)
[2022-08-07] MEDS ORDERED: DESMOPRESSIN ACETATE 24 MCG in SODIUM CHLORIDE 0.9% 50 ML IV ONE (09:15)
[2022-08-07 10:55] VITALS: TEMP 37.9
[2022-08-07] MEDS ORDERED: HYDROcodone/APAP 5-325MG 1 EACH TAB PO PRN (10:58)
--- NOTE | 2022-08-07 11:25 | CT ---
EXAMINATION TYPE: CT biopsy renal LT DATE OF EXAM: 08/07/2022 COMPARISON: NONE HISTORY: Protein in urine CT DLP: 07/14/2003 mGycm The procedure was explained to the patient. The risks, complications, benefits, and alternatives wer e discussed and any questions were answered. Informed consent was obtained. Patient was placed pron e on the CT table and prepped and draped in the usual sterile fashion. Utilizing CT guidance, an 18 gauge core biopsy needle access into the left renal cortex was achieved and three 18 gauge core samples were obtained. The patient was stable throughout the procedure and r emained stable upon discharge. IMPRESSION: Successful 18 gauge core biopsy of the kidney function.
[2022-08-07 14:26] VITALS: BP 124/58; PULSE 70
== END 2022-08-07 14:45 | disposition home or self-care (01) ==
LOC: RADPROMAIN 08:04
PROVIDERS: ATTEND Internal Medicine
DX: R80.9 Proteinuria, unspecified (principal)
CPT/HCPCS: 86900; 86901; 86850; 96365; 50200; 77012; J2597

== ENCOUNTER → 2022-08-11 | Outpatient (CLI) | payer MEDICARE, BC ==
[2022-08-11 16:24] LABS: African American GFR (CKD) 26.8 (60.0-200.0); Anion Gap 9.9 mmol/L (10.00-18.00); BUN/Creat Ratio 18.49 Ratio (12.00-20.00); Blood Urea Nitrogen 36.8 mg/dL (9.0-27.0); Calcium 8.7 mg/dL (8.7-10.3); Carbon Dioxide 22.4 mmol/L (20.0-27.5); Non-African American GFR(CKD) 23.1 (60.0-200.0); Potassium 4.4 mmol/L (3.5-5.5)
== END | disposition home or self-care (01) ==
LOC: LABWHC1 10:29
PROVIDERS: ATTEND Nurse Practitioner Acute Care
DX: N18.31 Chronic kidney disease, stage 3a (principal)
CPT/HCPCS: 36415; 80048

== ENCOUNTER 2022-08-19 10:22 | Inpatient (IN) | payer MEDICARE, BC ==
[2022-08-19] MEDS ORDERED: SODIUM CHLORIDE 0.9% 1,000 ML IV STA (10:38)
--- NOTE | 2022-08-19 10:42 | ED ---
General Adult HPI - General Chief complaint: Weakness Stated complaint: Weakness Time Seen by Provider: 08/19/22 10:28 Source: patient, RN notes reviewed Mode of arrival: EMS Limitations: no limitations - History of Present Illness Initial comments: Patient is a pleasant 82-year-old female presenting to the emergency department with concerns for general weakness. Onset of symptoms was the past day or so. Patient was eating and drinking yesterday however has no appetite today. No vomiting. No diarrhea. Patient does have some back and right leg discomfort however this is chronic and unchanged. No abdominal pain. No new back pain. No fevers. No isolated area of weakness. No confusion. - Related Data Home Medications Medication Instructions Recorded Confirmed Albuterol Inhaler [Ventolin Hfa 2 puff INHALATION RT-Q4H PRN 06/19/21 08/19/22 Inhaler] Levothyroxine Sodium [Synthroid] 88 mcg PO DAILY 06/19/21 08/19/22 Omeprazole 40 mg PO DAILY 06/19/21 08/19/22 Tamsulosin [Flomax] 0.4 mg PO DAILY 02/03/22 08/19/22 Hyoscyamine Sulfate [Levsin] 0.125 mg PO TID PRN 07/08/22 08/19/22 Aspirin EC [Ecotrin Low Dose] 81 mg PO DAILY 07/28/22 08/19/22 HYDROcodone/APAP 7.5-325MG [[place] 1 tab PO Q6HR PRN 07/28/22 08/19/22 7.5-325] Loratadine [Claritin] 10 mg PO DAILY PRN 07/28/22 08/19/22 Mirabegron [Myrbetriq] 25 mg PO DAILY 07/28/22 08/19/22 Pregabalin [Lyrica] 50 mg PO HS 07/28/22 08/19/22 Pregabalin [Lyrica] 25 mg PO DAILY 08/19/22 08/19/22 Tolterodine ER [Detrol LA] 2 mg PO DAILY 08/19/22 08/19/22 amLODIPine [Norvasc] 5 mg PO DAILY 08/19/22 08/19/22 polyethylene glycoL 3350 [Miralax] 17 gm PO DAILY PRN 08/19/22 08/19/22 Allergies Allergy/AdvReac Type Severity Reaction Status Date / Time Penicillins Allergy Swelling Verified 08/19/22 11:45 Sulfa (Sulfonamide Allergy Unknown Verified 08/19/22 11:45 Antibiotics) clindamycin AdvReac Nausea & Verified 08/19/22 11:45 Vomiting morphine AdvReac Nausea & Verified 08/19/22 11:45 Vomiting Review of Systems ROS Statement: Those systems with pertinent positive or pertinent negative responses have been documented in the HPI. ROS Other: All systems not noted in ROS Statement are negative. Constitutional: Denies: fever Eyes: Denies: eye pain ENT: Denies: ear pain Respiratory: Denies: cough Cardiovascular: Denies: chest pain Endocrine: Denies: fatigue Gastrointestinal: Reports: as per HPI. Denies: vomiting, diarrhea Genitourinary: Denies: dysuria Musculoskeletal: Reports: as per HPI Skin: Denies: rash Neurological: Reports: as per HPI, weakness. Denies: headache Past Medical History Past Medical History: Diabetes Mellitus, Hypertension, Renal Disease Additional Past Medical History / Comment(s): Type2, hypothyroidism, chronic back/neck pain, fibromyalgia History of Any Multi-Drug Resistant Organisms: None Reported Past Surgical History: Unable to Obtain Additional Past Surgical History / Comment(s): neck surgery, c-spine surgery, heart valve replacement, uerter stent placement 08/18/2022 Past Anesthesia/Blood Transfusion Reactions: No Reported Reaction Past Psychological History: No Psychological Hx Reported Smoking Status: Never smoker Past Alcohol Use History: None Reported Past Drug Use History: None Reported - Past Family History Family Family Medical History: No Reported History General Exam Limitations: no limitations General appearance: alert, in no apparent distress Head exam: Present: normocephalic Eye exam: Present: normal appearance ENT exam: Present: mucous membranes dry Neck exam: Present: normal inspection. Absent: tenderness, meningismus Respiratory exam: Present: normal lung sounds bilaterally Cardiovascular Exam: Present: regular rate, normal rhythm GI/Abdominal exam: Present: soft. Absent: tenderness, pulsatile mass Extremities exam: Present: normal inspection, full ROM. Absent: tenderness Neurological exam: Present: alert, CN II-XII intact Expanded Motor strength exam: RUE: 5, LUE: 5, RLE: 4, LLE: 4 Eye Response: (4) open spontaneously Motor Response: (6) obeys commands Verbal Response: (5) oriented Psychiatric exam: Present: normal affect, normal mood Skin exam: Present: normal color Course Vital Signs 08/19/22 08/19/22 08/19/22 10:28 11:04 11:40 Temperature 98.5 F Pulse Rate 88 86 91 Respiratory 18 20 20 Rate Blood Pressure 106/45 114/49 117/50 O2 Sat by Pulse 95 95 95 Oximetry 08/19/22 12:20 Temperature Pulse Rate 89 Respiratory 22 Rate Blood Pressure 108/46 O2 Sat by Pulse 95 Oximetry EKG Findings - EKG Results: EKG: interpreted by ERMD (Bundle-branch block, left. Nonspecific T waves.), sinus rhythm, normal axis Medical Decision Making - Medical Decision Making Was pt. sent in by a medical professional or institution (, PA, REFRIGERATION MECHANIC HELPER, urgent care, hospital, or shelter...) When possible be specific @ -No Did you speak to anyone other than the patient for history (EMS, parent, family, police, friend...)? What history was obtained from this source @ -Family is later present and helps provide history including that stent was placed yesterday at [facility] with Dr. Schaefer Did you review nursing and triage notes (agree or disagree)? Why? @ -I reviewed and agree with nursing and triage notes Were old charts reviewed (outside hosp., previous admission, EMS record, old EKG, old radiological studies, urgent care reports/EKG's, shelter records)? Report findings @ -Previous EKG dated 06/19/21 also has left bundle-branch block Differential Diagnosis (chest pain, altered mental status, abdominal pain women, abdominal pain men, vaginal bleeding, weakness, fever, dyspnea, syncope, headache, dizziness, GI bleed, back pain, seizure, CVA, palpatations, mental health)? @ -Differential Weakness: Hypoglycemia, shock, sepsis, hyponatremia, anemia, infection, NE, ETOH, adverse medicine reaction, overdose, stroke, this is not meant to be an all-inclusive list. EKG interpreted by me (3pts min.). @ -As above X-rays interpreted by me (1pt min.). @ -KUB shows right ureteral stent. Two-view chest x-ray shows no acute process. CT interpreted by me (1pt min.). @ -None done U/S interpreted by me (1pt. min.). @ -Report reviewed What testing was considered but not performed or refused? (CT, X-rays, U/S, labs)? Why? @ -None What meds were considered but not given or refused? Why? @ -None Did you discuss the management of the patient with other professionals (professionals i.e. , PA, REFRIGERATION MECHANIC HELPER, lab, RT, psych nurse, social work associate, compo caster, teacher, weapons officer naval activity, rifle case repairer)? Give summary @ -Case was discussed with Dr. Espino with [facility] who will admit, Dr. Drummond. He does request blood culture and urine cultures be done. He recommends holding heparin at this time secondary to patient not having chest pain. Was smoking cessation discussed for >3mins.? @ -No Was critical care preformed (if so, how long)? @ -No Were there social determinants of health that impacted care today? How? (Homelessness, low income, unemployed, alcoholism, drug addiction, transportati on, low edu. Level, literacy, decrease access to med. care, intermediate, rehab)? @ -No Was there de-escalation of care discussed even if they declined (Discuss DNR or withdrawal of care, Hospice)? DNR status @ -No What co-morbidities impacted this encounter? (DM, HTN, Smoking, COPD, CAD, Cancer, CVA, ARF, Chemo, Hep., AIDS, mental health diagnosis, sleep apnea, morbid obesity)? @ -None Was patient admitted / discharged? Hospital course, mention meds given and route, prescriptions, significant lab abnormalities, going to OR and other pertinent info. @ -Patient evaluated. Patient and family updated. Patient will be admitted with consult with urology and cardiology. Cultures will be done. Undiagnosed new problem with uncertain prognosis? @ -No Drug Therapy requiring intensive monitoring for toxicity (Heparin, Nitro, Insulin, Cardizem)? @ -No Were any procedures done? @ -No Diagnosis/symptom? @ -Weakness Acute, or Chronic, or Acute on Chronic? @ -Acute Uncomplicated (without systemic symptoms) or Complicated (systemic symptoms)? @ -default Side effects of treatment? @ -No Exacerbation, Progression, or Severe Exacerbation? @ -No Poses a threat to life or bodily function? How? (Chest pain, [place], NE, pneumonia, PE, COPD, DKA, ARF, appy, cholecystitis, CVA, Diverticulitis, Homicidal, Suicidal, threat to staff... and all critical care pts) @ -No - Lab Data Result diagrams: 08/19/22 11:09 08/19/22 11:09 Lab Results 08/19/22 08/19/22 08/19/22 Range/Units 11:09 11:09 11:09 WBC 17.3 H (3.8-10.6) k/uL RBC 2.97 L (3.80-5.40) m/uL Hgb 8.9 L (11.4-16.0) gm/dL Hct 29.1 L (34.0-46.0) % MCV 98.0 (80.0-100.0) fL MCH 30.1 (25.0-35.0) pg MCHC 30.7 L (31.0-37.0) g/dL RDW 17.0 H (11.5-15.5) % Plt Count 195 (150-450) k/uL MPV 10.8 Neutrophils % 93 % Lymphocytes % 3 % Monocytes % 3 % Eosinophils % 0 % Basophils % 0 % Neutrophils # 16.1 H (1.3-7.7) k/uL Lymphocytes # 0.5 L (1.0-4.8) k/uL Monocytes # 0.5 (0-1.0) k/uL Eosinophils # 0.0 (0-0.7) k/uL Basophils # 0.0 (0-0.2) k/uL Hypochromasia Moderate Anisocytosis Slight Macrocytosis Slight PT 12.5 H (9.0-12.0) sec INR 1.2 H (<1.2) APTT 25.2 (22.0-30.0) sec Sodium (137-145) mmol/L Potassium (3.5-5.1) mmol/L Chloride (98-107) mmol/L Carbon Dioxide (22-30) mmol/L Anion Gap mmol/L BUN (7-17) mg/dL Creatinine (0.52-1.04) mg/dL Est GFR (CKD-EPI)AfAm (>60 ml/min/1.73 sqM) Est GFR (CKD-EPI)NonAf (>60 ml/min/1.73 sqM) Glucose (74-99) mg/dL Plasma Lactic Acid [place] (0.7-2.0) mmol/L Calcium (8.4-10.2) mg/dL Phosphorus (2.5-4.5) mg/dL Magnesium (1.6-2.3) mg/dL Total Bilirubin (0.2-1.3) mg/dL AST (14-36) U/L ALT (4-34) U/L Alkaline Phosphatase (38-126) U/L Troponin I (0.000-0.034) ng/mL Total Protein (6.3-8.2) g/dL Albumin (3.5-5.0) g/dL Urine Color Dark Red Urine Appearance Turbid H (Clear) Urine pH 6.0 (5.0-8.0) Ur Specific [place] 1.017 (1.001-1.035) Urine Protein 2+ H (Negative) Urine Glucose (UA) Negative (Negative) Urine Ketones Negative (Negative) Urine Blood Large H (Negative) Urine Nitrite Negative (Negative) Urine Bilirubin Negative (Negative) Urine Urobilinogen <2.0 (<2.0) mg/dL Ur Leukocyte Esterase Large H (Negative) Urine RBC >182 H (0-5) /hpf Urine WBC >182 H (0-5) /hpf Urine WBC Clumps Many H (None) /hpf 08/19/22 08/19/22 08/19/22 Range/Units 11:09 11:09 11:09 WBC (3.8-10.6) k/uL RBC (3.80-5.40) m/uL Hgb (11.4-16.0) gm/dL Hct (34.0-46.0) % MCV (80.0-100.0) fL MCH (25.0-35.0) pg MCHC (31.0-37.0) g/dL RDW (11.5-15.5) % Plt Count (150-450) k/uL MPV Neutrophils % % Lymphocytes % % Monocytes % % Eosinophils % % Basophils % % Neutrophils # (1.3-7.7) k/uL Lymphocytes # (1.0-4.8) k/uL Monocytes # (0-1.0) k/uL Eosinophils # (0-0.7) k/uL Basophils # (0-0.2) k/uL Hypochromasia Anisocytosis Macrocytosis PT (9.0-12.0) sec INR (<1.2) APTT (22.0-30.0) sec Sodium 134 L (137-145) mmol/L Potassium 4.6 (3.5-5.1) mmol/L Chloride 104 (98-107) mmol/L Carbon Dioxide 21 L (22-30) mmol/L Anion Gap 9 mmol/L BUN 41 H (7-17) mg/dL Creatinine 2.28 H (0.52-1.04) mg/dL Est GFR (CKD-EPI)AfAm 23 (>60 ml/min/1.73 sqM) Est GFR (CKD-EPI)NonAf 20 (>60 ml/min/1.73 sqM) Glucose 157 H (74-99) mg/dL Plasma Lactic Acid [place] 1.9 (0.7-2.0) mmol/L Calcium 8.5 (8.4-10.2) mg/dL Phosphorus 3.3 (2.5-4.5) mg/dL Magnesium 1.5 L (1.6-2.3) mg/dL Total Bilirubin 1.0 (0.2-1.3) mg/dL AST 31 (14-36) U/L ALT 18 (4-34) U/L Alkaline Phosphatase 91 (38-126) U/L Troponin I 0.329 H* (0.000-0.034) ng/mL Total Protein 7.0 (6.3-8.2) g/dL Albumin 3.5 (3.5-5.0) g/dL Urine Color Urine Appearance (Clear) Urine pH (5.0-8.0) Ur Specific [place] (1.001-1.035) Urine Protein (Negative) Urine Glucose (UA) (Negative) Urine Ketones (Negative) Urine Blood (Negative) Urine Nitrite (Negative) Urine Bilirubin (Negative) Urine Urobilinogen (<2.0) mg/dL Ur Leukocyte Esterase (Negative) Urine RBC (0-5) /hpf Urine WBC (0-5) /hpf Urine WBC Clumps (None) /hpf Disposition Clinical Impression: Weakness Disposition: ADMITTED IP TO THIS [facility] Is patient prescribed a controlled substance at d/c from ED?: No Referrals: Naeem Herr MD [Primary Care Provider] - 1-2 days Time of Disposition: 14:03
[2022-08-19 11:29] LABS: Anisocytosis Slight; Basophils % (A) 0 %; Eosinophils % (A) 0 %; HCT 29.1 % (34.0-46.0); HGB 8.9 gm/dL (11.4-16.0); Hypochromasia Moderate; Lymphocytes # (A) 0.5 k/uL (1.0-4.8); Lymphocytes % (A) 3 %; MCH 30.1 pg (25.0-35.0); MCHC 30.7 g/dL (31.0-37.0); Macrocytosis Slight; Mean Platelet Volume 10.8; Monocytes # (A) 0.5 k/uL (0-1.0); Monocytes % (A) 3 %; Neutrophils # (A) 16.1 k/uL (1.3-7.7); Neutrophils % (A) 93 %; Platelet Count 195 k/uL (150-450); RBC 2.97 m/uL (3.80-5.40); WBC 17.3 k/uL (3.8-10.6)
[2022-08-19 11:44] LABS: Albumin 3.5 g/dL (3.5-5.0); Calcium 8.5 mg/dL (8.4-10.2); Magnesium 1.5 mg/dL (1.6-2.3); Phosphorus 3.3 mg/dL (2.5-4.5); Potassium 4.6 mmol/L (3.5-5.1)
[2022-08-19 11:55] LABS: INR 1.2 (<1.2); Partial Thromboplastin Time 25.2 sec (22.0-30.0); Prothrombin Time 12.5 sec (9.0-12.0)
--- NOTE | 2022-08-19 13:03 | US ---
EXAMINATION TYPE: US kidneys/renal and bladder DATE OF EXAM: 08/19/2022 COMPARISON: CT & US 2021 CLINICAL INDICATION: Female, 82 years old with history of post op pain; EXAM MEASUREMENTS: Right Kidney: 10.2 x 5.7 x 4.8 cm Left Kidney: 10.2 x 5.2 x 4.5 cm Multiple grayscale and color Doppler ultrasound images of both kidneys and urinary bladder were obtai cristian. Right Kidney: 1.6 x 1.1 x 1.3cm hypoechoic area mid pole Left Kidney: 1.5 x 1.4 x 1.3cm hypoechoic area mid pole - possible column of Marcel[place], 3.6 x 2.6 x 2.6c m exophytic hypoechoic area medial mid pole Bladder: not fully distended There is no evidence for hydronephrosis at this point in time. No nephrolithiasis is seen. Likely re nal sinus cyst within the right kidney. Prominent column of Marcel[place] is demonstrated within the left ki dney. There is a lobulated appearance of the left kidney corresponding to prior PET/CT. No perinephri c fluid collections. Urinary bladder is not fully distended which limits evaluation. IMPRESSION: No hydronephrosis or nephrolithiasis.
--- NOTE | 2022-08-19 13:52 | XR ---
EXAMINATION TYPE: XR chest 2V DATE OF EXAM: 08/19/2022 COMPARISON: 06/29/2021 TECHNIQUE: PA and lateral views submitted. HISTORY: Weakness FINDINGS: The lungs are clear and there is no pneumothorax, pleural effusion, or focal pneumonia. There is no overt failure. Osseous structures demonstrate hypertrophic and degenerative changes of the spine. Art hropathy of the shoulders bilaterally. Heart is prominent. Limited inspiration. Previous aortic valve surgery noted. IMPRESSION: 1. No acute process.
[2022-08-19 13:56] LABS: Appearance,Urine Turbid (Clear); Bilirubin,Urine Negative (Negative); Blood,Urine Large (Negative); Color,Urine Dark Red; Glucose,Urine (UA) Negative (Negative); Ketones,Urine Negative (Negative); Leukocyte Esterase,Urine Large (Negative); Nitrite,Urine Negative (Negative); Protein,Urine 2+ (Negative); RBC,Urine >182 /hpf (0-5); Urobilinogen,Urine <2.0 mg/dL (<2.0); WBC,Urine >182 /hpf (0-5)
--- NOTE | 2022-08-19 13:56 | XR ---
EXAMINATION TYPE: XR abdomen 1V DATE OF EXAM: 08/19/2022 COMPARISON: None INDICATION: Stent placement TECHNIQUE: Single view abdomen supine view FINDINGS: There is a normal bowel gas pattern. Psoas margins are normal. No organomegaly is present. Double pigtail catheters present on the right. IMPRESSION: 1. Right ureteral stent. 2. Otherwise unremarkable abdomen.
[2022-08-19 13:57] LABS: Specific Gravity,Urine 1.017 (1.001-1.035)
[2022-08-19] MEDS ORDERED: NALOXONE 0.4 MG/ML 1 ML VIAL IV PRN (14:09)
[2022-08-19] MEDS ORDERED: ASPIRIN 325 MG TAB PO SCH (14:15)
[2022-08-19] MEDS ORDERED: HYOSCYAMINE SULFATE 0.125 MG TAB PO PRN (14:23)
[2022-08-19] MEDS ORDERED: ACETAMINOPHEN TAB 325 MG TAB PO PRN (14:31)
[2022-08-19] MEDS: SODIUM CHLORIDE 0.9% 1,000 ML IV SCH (14:41)
[2022-08-19] MEDS ORDERED: LORATADINE 10 MG TAB PO PRN (16:18)
--- NOTE | 2022-08-19 17:31 | P.HPIM ---
History of Present Illness H&P Date: 08/19/22 Patient is a 82-year-old female with a history of hypertension, hypothyroidism, recent urologic procedure presenting with generalized weakness. She claims that she has had multiple recent urological procedures, most recent was yesterday. As soon as she got home yesterday she started no generalized weakness. She has been noticing some nausea, and chills, denies any fevers, chest pain, shortness breath, abdominal pain. She does have chronic constipation. She denies any alcohol use, illicit drug use, smoking. In the ED, initial temperature was 98.5, pulse 88, blood pressure 106/45, saturating at 95% on room air. Subsequently temperature did go up to 101.1, pulse 94. WBC 17.3, hemoglobin 8.9 (chronic), sodium 134, creatinine 2.28 (baseline 1.6), magnesium 1.5, troponin 0.329, UA positive for leukocyte esterase, negative nitrites, large blood. EKG personally interpreted shows sinus rhythm, left bundle branch block, not new. Renal ultrasound shows no hydronephrosis or nephrolithiasis, chest x-ray shows no acute process. Abdominal x-ray shows right ureteral stent. Patient admitted for generalized weakness, likely in the setting of sepsis Pertinent positives and negatives as discussed in HPI, a complete review of systems was performed and all other systems are negative. Patient seen and examined at bedside. Vital signs reviewed General: nontoxic, no distress, appears at stated age Derm: warm, dry Head: atraumatic, normocephalic, symmetric Eyes: EOMI, no lid lag, anicteric sclera, pupils equal round reactive to light ENT: Nose and ears atraumatic Neck: No thyromegaly, supple Mouth: no lip lesion, mucus membranes moist Cardiovascular: S1S2 reg, no murmur, no edema Lungs: clear to auscultation bilateral, no rhonchi, no rales, no wheeze, no accessory muscle use Abdominal: soft, nontender to palpation, no guarding, no appreciable organomegaly Ext: no gross muscle atrophy, muscle strength muscle strength 5 out of 5 in all 4 extremities, no contractures Neuro: CN II-XII grossly intact Psych: Alert, oriented, appropriate affect Assessment/Plan: Active: Severe sepsis secondary to urinary tract infection Recent ureteral stent placement Acute kidney injury Type 2 NSTEMI Hypomagnesemia Generalized weakness History of left bundle branch block History of hypertension Chronic constipation -Blood cultures and urine cultures pending -Continue ceftriaxone 2 g IV every 24 hours -Urology consult -Continue IV fluids 1 30 mL an hour -Trend troponin, EKG shows no new ST-T wave changes -Magnesium 4 g IV ordered -Hold amlodipine in the setting of sepsis -PT/OT -Bowel regimen Chronic: Hypothyroidism The patient is admitted with an anticipated greater than 2 midnight stay as inpatient status for evaluation of severe sepsis. Surrogate decision-maker: Jaguar CODE STATUS: DO NOT RESUSCITATE/DO NOT INTUBATE DVT prophylaxis: Subcu heparin Anticipated discharge date: Pending clinical course Anticipated discharge place: pending clinical course A total of 65 minutes was spent on the care of this complex patient more than 50% of the time was spent in counseling and care coordination. Past Medical History Past Medical History: Diabetes Mellitus, Hypertension, Renal Disease Additional Past Medical History / Comment(s): Type2, hypothyroidism, chronic back/neck pain, fibromyalgia History of Any Multi-Drug Resistant Organisms: None Reported Past Surgical History: Unable to Obtain Additional Past Surgical History / Comment(s): neck surgery, c-spine surgery, heart valve replacement, uerter stent placement 08/18/2022 Past Anesthesia/Blood Transfusion Reactions: No Reported Reaction Past Psychological History: No Psychological Hx Reported Smoking Status: Never smoker Past Alcohol Use History: None Reported Past Drug Use History: None Reported - Past Family History Family Family Medical History: No Reported History Medications and Allergies Home Medications Medication Instructions Recorded Confirmed Type Albuterol Inhaler [Ventolin Hfa 2 puff INHALATION RT-Q4H PRN 06/19/21 08/19/22 History Inhaler] Levothyroxine Sodium [Synthroid] 88 mcg PO DAILY 06/19/21 08/19/22 History Omeprazole 40 mg PO DAILY 06/19/21 08/19/22 History Tamsulosin [Flomax] 0.4 mg PO DAILY 02/03/22 08/19/22 History Hyoscyamine Sulfate [Levsin] 0.125 mg PO TID PRN 07/08/22 08/19/22 History Aspirin EC [Ecotrin Low Dose] 81 mg PO DAILY 07/28/22 08/19/22 History HYDROcodone/APAP 7.5-325MG [[place] 1 tab PO Q6HR PRN 07/28/22 08/19/22 History 7.5-325] Loratadine [Claritin] 10 mg PO DAILY PRN 07/28/22 08/19/22 History Mirabegron [Myrbetriq] 25 mg PO DAILY 07/28/22 08/19/22 History Pregabalin [Lyrica] 50 mg PO HS 07/28/22 08/19/22 History Pregabalin [Lyrica] 25 mg PO DAILY 08/19/22 08/19/22 History Tolterodine ER [Detrol LA] 2 mg PO DAILY 08/19/22 08/19/22 History amLODIPine [Norvasc] 5 mg PO DAILY 08/19/22 08/19/22 History polyethylene glycoL 3350 [Miralax] 17 gm PO DAILY PRN 08/19/22 08/19/22 History Allergies Allergy/AdvReac Type Severity Reaction Status Date / Time Penicillins Allergy Swelling Verified 08/19/22 11:45 Sulfa (Sulfonamide Allergy Unknown Verified 08/19/22 11:45 Antibiotics) clindamycin AdvReac Nausea & Verified 08/19/22 11:45 Vomiting morphine AdvReac Nausea & Verified 08/19/22 11:45 Vomiting Physical Exam Vitals: Vital Signs Temp Pulse Resp BP Pulse Ox 08/19/22 14:30 101.1 F H 94 20 128/59 95 08/19/22 12:20 89 22 108/46 95 08/19/22 11:40 91 20 117/50 95 08/19/22 11:04 86 20 114/49 95 08/19/22 10:28 98.5 F 88 18 106/45 95 Intake and Output 08/19/22 08/19/22 08/19/22 06:59 14:59 22:59 Other: Weight 79.379 kg Results CBC & Chem 7: 08/19/22 11:09 08/19/22 11:09 Labs: Abnormal Lab Results - Last 24 Hours (Table) 08/19/22 08/19/22 08/19/22 Range/Units 11:09 11:09 11:09 WBC 17.3 H (3.8-10.6) k/uL RBC 2.97 L (3.80-5.40) m/uL Hgb 8.9 L (11.4-16.0) gm/dL Hct 29.1 L (34.0-46.0) % MCHC 30.7 L (31.0-37.0) g/dL RDW 17.0 H (11.5-15.5) % Neutrophils # 16.1 H (1.3-7.7) k/uL Lymphocytes # 0.5 L (1.0-4.8) k/uL PT 12.5 H (9.0-12.0) sec INR 1.2 H (<1.2) Sodium (137-145) mmol/L Carbon Dioxide (22-30) mmol/L BUN (7-17) mg/dL Creatinine (0.52-1.04) mg/dL Glucose (74-99) mg/dL Magnesium (1.6-2.3) mg/dL Troponin I (0.000-0.034) ng/mL Urine Appearance Turbid H (Clear) Urine Protein 2+ H (Negative) Urine Blood Large H (Negative) Ur Leukocyte Esterase Large H (Negative) Urine RBC >182 H (0-5) /hpf Urine WBC >182 H (0-5) /hpf Urine WBC Clumps Many H (None) /hpf 08/19/22 08/19/22 08/19/22 Range/Units 11:09 11:09 14:51 WBC (3.8-10.6) k/uL RBC (3.80-5.40) m/uL Hgb (11.4-16.0) gm/dL Hct (34.0-46.0) % MCHC (31.0-37.0) g/dL RDW (11.5-15.5) % Neutrophils # (1.3-7.7) k/uL Lymphocytes # (1.0-4.8) k/uL PT (9.0-12.0) sec INR (<1.2) Sodium 134 L (137-145) mmol/L Carbon Dioxide 21 L (22-30) mmol/L BUN 41 H (7-17) mg/dL Creatinine 2.28 H (0.52-1.04) mg/dL Glucose 157 H (74-99) mg/dL Magnesium 1.5 L (1.6-2.3) mg/dL Troponin I 0.329 H* 0.403 H* (0.000-0.034) ng/mL Urine Appearance (Clear) Urine Protein (Negative) Urine Blood (Negative) Ur Leukocyte Esterase (Negative) Urine RBC (0-5) /hpf Urine WBC (0-5) /hpf Urine WBC Clumps (None) /hpf
[2022-08-19 17:46] LABS: Glucose,Whole Blood 134 mg/dL (70-110)
[2022-08-19] MEDS: MAGNESIUM SULFATE-D5W PMX 1 GM in DEXTROSE/WATER 1 100ML.BAG IVPB SCH ×4 (18:15→22:43)
[2022-08-19] MEDS: HYDROcodone/APAP 7.5-325MG 1 EACH TAB PO PRN (18:30)
[2022-08-19 20:17] LABS: Glucose,Whole Blood 133 mg/dL (70-110)
[2022-08-19] MEDS: PREGABALIN 50 MG CAP PO SCH (20:20)
[2022-08-19] MEDS: HEPARIN SODIUM,PORCINE/PF 5,000 UNIT/0.5 ML SYRINGE SQ SCH (22:44)
[2022-08-20] MEDS: ACETAMINOPHEN TAB 325 MG TAB PO PRN ×2 (02:39→14:16)
[2022-08-20 04:46] LABS: Glucose,Whole Blood 163 mg/dL (70-110)
[2022-08-20] MEDS: SODIUM CHLORIDE 0.9% 1,000 ML IV SCH (04:57)
[2022-08-20] MEDS: PANTOPRAZOLE 40 MG TABLET PO SCH (05:57)
[2022-08-20] MEDS: LEVOTHYROXINE 88 MCG TAB PO SCH (05:57)
[2022-08-20] MEDS: PREGABALIN 25 MG CAP PO SCH (08:14)
[2022-08-20] MEDS: HEPARIN SODIUM,PORCINE/PF 5,000 UNIT/0.5 ML SYRINGE SQ SCH ×2 (08:14→15:57)
[2022-08-20] MEDS: ASPIRIN 81 MG PO SCH (08:14)
[2022-08-20] MEDS: TAMSULOSIN 0.4 MG CAP.ER.24H PO SCH (08:14)
[2022-08-20] MEDS: Mirabegron [Myrbetriq] 25 MG Tab.Er.24h PO SCH (08:15)
[2022-08-20 08:20] LABS: Anisocytosis Slight; Basophils % (A) 0 %; Eosinophils % (A) 0 %; HCT 24.4 % (34.0-46.0); HGB 7.6 gm/dL (11.4-16.0); Hypochromasia Slight; Lymphocytes # (A) 0.6 k/uL (1.0-4.8); Lymphocytes % (A) 5 %; MCH 30.1 pg (25.0-35.0); MCHC 31.2 g/dL (31.0-37.0); MCV 96.4 fL (80.0-100.0); Macrocytosis Slight; Mean Platelet Volume 10.7; Monocytes # (A) 0.2 k/uL (0-1.0); Monocytes % (A) 2 %; Neutrophils # (A) 9.5 k/uL (1.3-7.7); Neutrophils % (A) 91 %; Platelet Count 137 k/uL (150-450); RBC 2.53 m/uL (3.80-5.40); RDW 17.1 % (11.5-15.5); WBC 10.5 k/uL (3.8-10.6)
[2022-08-20 08:37] LABS: Albumin 2.8 g/dL (3.5-5.0); Potassium 4.3 mmol/L (3.5-5.1); Total Bilirubin 0.5 mg/dL (0.2-1.3); Total Protein 5.9 g/dL (6.3-8.2)
--- NOTE | 2022-08-20 08:43 | XR ---
EXAMINATION TYPE: XR chest 1V portable DATE OF EXAM: 08/20/2022 8:38 AM COMPARISON: Chest radiographs from 08/19/2022 TECHNIQUE: XR chest 1V portable Portable AP radiograph of the chest. CLINICAL INDICATION:Female, 82 years old with history of hypoxia; FINDINGS: Lungs/Pleura: There is no evidence of pleural effusion, focal consolidation, or pneumothorax. Pulmonary vascularity: Mild pulmonary vascular congestion. Heart/mediastinum: Cardiomediastinal silhouette is enlarged and stable. Atherosclerotic calcificatio ns are seen in the aorta. Previous aortic valve surgery noted. Musculoskeletal: No acute osseous pathology. Cervical fusion hardware demonstrated.. IMPRESSION: Cardiomegaly and mild pulmonary vascular congestion. Correlate with BNP for congestive heart failure.
[2022-08-20] MEDS ORDERED: amLODIPine 5 MG TAB PO SCH (09:00)
[2022-08-20] MEDS: HYDROcodone/APAP 7.5-325MG 1 EACH TAB PO PRN ×2 (11:19→18:21)
--- NOTE | 2022-08-20 11:26 | P.PN ---
Subjective Progress Note Date: 08/20/22 Hospital Course: 82-year-old female with a history of hypertension, hypothyroidism, recent urologic procedure presenting with generalized weakness. In the ED, initial temperature was 98.5, pulse 88, blood pressure 106/45, saturating at 95% on room air. Subsequently temperature did go up to 101.1, pulse 94. WBC 17.3, hemoglobin 8.9 (chronic), sodium 134, creatinine 2.28 (baseline 1.6), magnesium 1.5, troponin 0.329, UA positive for leukocyte esterase, negative nitrites, large blood. EKG personally interpreted shows sinus rhythm, left bundle branch block, not new. Renal ultrasound shows no hydronephrosis or nephrolithiasis, chest x-ray shows no acute process. Abdominal x-ray shows right ureteral stent. Patient admitted for generalized weakness, likely in the setting of sepsis. Subjective: Seen and examined at bedside. No acute events overnight. Continues to feel c hills, and weakness. Denies any chest pain, shortness of breath, abdominal pain, nausea, vomiting, diarrhea, constipation. Currently on supplemental oxygen. Pertinent positives and negatives as discussed above, a complete review of systems was performed and all other systems are negative. Vitals Signs Reviewed. General: nontoxic, no distress, appears at stated age Derm: warm, dry Head: atraumatic, normocephalic, symmetric Eyes: EOMI, no lid lag, anicteric sclera, pupils equal round reactive to light ENT: Nose and ears atraumatic Neck: No thyromegaly, supple Mouth: no lip lesion, mucus membranes moist Cardiovascular: S1S2 reg, no murmur, no edema Lungs: clear to auscultation bilateral, no rhonchi, no rales, no wheeze, no accessory muscle use, supplemental oxygen Abdominal: soft, nontender to palpation, no guarding, no appreciable organomegaly Ext: no gross muscle atrophy, muscle strength muscle strength 5 out of 5 in all 4 extremities, no contractures Neuro: CN II-XII grossly intact Psych: Alert, oriented, appropriate affect Data Reviewed Today: Pertinent Labs: WBC 10.5, hemoglobin 7.6, platelet 137, sodium 134, creatinine 2.73 Imaging: Chest x-ray personally interpreted, mild pulmonary vascular congestion Assessment and Plan: [Active:] Severe sepsis secondary to urinary tract infection Recent ureteral stent placement Acute kidney injury, worsening Acute hypoxic respiratory failure Pulmonary vascular congestion, mild Type 2 NSTEMI Hypomagnesemia Generalized weakness History of left bundle branch block History of hypertension Chronic constipation -Blood cultures and urine cultures pending -Continue ceftriaxone 2 g IV every 24 hours -Urology consult, pending recommendations -Fluids discontinued, continue to wean oxygen -Cardiology consulted, pending recommendations, echocardiogram report pending -On aspirin 81 mg daily, atorvastatin 40 mg daily -Magnesium level ordered -Continue to hold amlodipine in the setting of sepsis -PT/OT -Bowel regimen Chronic: Hypothyroidism DVT ppx: Subcu heparin Code status: No code Anticipated discharge place: Pending clinical course Anticipated discharge time: Pending clinical course Objective - Vital Signs Vital signs: Vital Signs Temp 97.7 F 08/20/22 08:10 Pulse 77 08/20/22 08:10 Resp 19 08/20/22 08:10 BP 115/62 08/20/22 08:10 Pulse Ox 100 08/20/22 08:10 FiO2 Intake & Output 08/19/22 08/20/22 08/20/22 18:59 06:59 18:59 Intake Total 540 Output Total 100 Balance -100 540 Weight 79.379 kg Intake: Oral 540 Output: Urine 100 Other: Voiding Method External Catheter External Catheter - Labs CBC & Chem 7: 08/20/22 07:38 08/20/22 07:38 Labs: Abnormal Lab Results - Last 24 Hours (Table) 08/19/22 08/19/22 08/19/22 Range/Units 11:09 11:09 11:09 WBC 17.3 H (3.8-10.6) k/uL RBC 2.97 L (3.80-5.40) m/uL Hgb 8.9 L (11.4-16.0) gm/dL Hct 29.1 L (34.0-46.0) % MCHC 30.7 L (31.0-37.0) g/dL RDW 17.0 H (11.5-15.5) % Plt Count (150-450) k/uL Neutrophils # 16.1 H (1.3-7.7) k/uL Lymphocytes # 0.5 L (1.0-4.8) k/uL PT 12.5 H (9.0-12.0) sec INR 1.2 H (<1.2) Sodium (137-145) mmol/L Carbon Dioxide (22-30) mmol/L BUN (7-17) mg/dL Creatinine (0.52-1.04) mg/dL Glucose (74-99) mg/dL POC Glucose (mg/dL) (70-110) mg/dL Calcium (8.4-10.2) mg/dL Magnesium (1.6-2.3) mg/dL Troponin I (0.000-0.034) ng/mL Total Protein (6.3-8.2) g/dL Albumin (3.5-5.0) g/dL Urine Appearance Turbid H (Clear) Urine Protein 2+ H (Negative) Urine Blood Large H (Negative) Ur Leukocyte Esterase Large H (Negative) Urine RBC >182 H (0-5) /hpf Urine WBC >182 H (0-5) /hpf Urine WBC Clumps Many H (None) /hpf 08/19/22 08/19/22 08/19/22 Range/Units 11:09 11:09 14:51 WBC (3.8-10.6) k/uL RBC (3.80-5.40) m/uL Hgb (11.4-16.0) gm/dL Hct (34.0-46.0) % MCHC (31.0-37.0) g/dL RDW (11.5-15.5) % Plt Count (150-450) k/uL Neutrophils # (1.3-7.7) k/uL Lymphocytes # (1.0-4.8) k/uL PT (9.0-12.0) sec INR (<1.2) Sodium 134 L (137-145) mmol/L Carbon Dioxide 21 L (22-30) mmol/L BUN 41 H (7-17) mg/dL Creatinine 2.28 H (0.52-1.04) mg/dL Glucose 157 H (74-99) mg/dL POC Glucose (mg/dL) (70-110) mg/dL Calcium (8.4-10.2) mg/dL Magnesium 1.5 L (1.6-2.3) mg/dL Troponin I 0.329 H* 0.403 H* (0.000-0.034) ng/mL Total Protein (6.3-8.2) g/dL Albumin (3.5-5.0) g/dL Urine Appearance (Clear) Urine Protein (Negative) Urine Blood (Negative) Ur Leukocyte Esterase (Negative) Urine RBC (0-5) /hpf Urine WBC (0-5) /hpf Urine WBC Clumps (None) /hpf 08/19/22 08/19/22 08/19/22 Range/Units 17:34 17:41 20:15 WBC (3.8-10.6) k/uL RBC (3.80-5.40) m/uL Hgb (11.4-16.0) gm/dL Hct (34.0-46.0) % MCHC (31.0-37.0) g/dL RDW (11.5-15.5) % Plt Count (150-450) k/uL Neutrophils # (1.3-7.7) k/uL Lymphocytes # (1.0-4.8) k/uL PT (9.0-12.0) sec INR (<1.2) Sodium (137-145) mmol/L Carbon Dioxide (22-30) mmol/L BUN (7-17) mg/dL Creatinine (0.52-1.04) mg/dL Glucose (74-99) mg/dL POC Glucose (mg/dL) 134 H 133 H (70-110) mg/dL Calcium (8.4-10.2) mg/dL Magnesium (1.6-2.3) mg/dL Troponin I 0.353 H* (0.000-0.034) ng/mL Total Protein (6.3-8.2) g/dL Albumin (3.5-5.0) g/dL Urine Appearance (Clear) Urine Protein (Negative) Urine Blood (Negative) Ur Leukocyte Esterase (Negative) Urine RBC (0-5) /hpf Urine WBC (0-5) /hpf Urine WBC Clumps (None) /hpf 08/20/22 08/20/22 08/20/22 Range/Units 04:41 07:38 07:38 WBC (3.8-10.6) k/uL RBC 2.53 L (3.80-5.40) m/uL Hgb 7.6 L (11.4-16.0) gm/dL Hct 24.4 L (34.0-46.0) % MCHC (31.0-37.0) g/dL RDW 17.1 H (11.5-15.5) % Plt Count 137 L (150-450) k/uL Neutrophils # 9.5 H (1.3-7.7) k/uL Lymphocytes # 0.6 L (1.0-4.8) k/uL PT (9.0-12.0) sec INR (<1.2) Sodium 134 L (137-145) mmol/L Carbon Dioxide 19 L (22-30) mmol/L BUN 46 H (7-17) mg/dL Creatinine 2.73 H (0.52-1.04) mg/dL Glucose 127 H (74-99) mg/dL POC Glucose (mg/dL) 163 H (70-110) mg/dL Calcium 8.0 L (8.4-10.2) mg/dL Magnesium (1.6-2.3) mg/dL Troponin I (0.000-0.034) ng/mL Total Protein 5.9 L (6.3-8.2) g/dL Albumin 2.8 L (3.5-5.0) g/dL Urine Appearance (Clear) Urine Protein (Negative) Urine Blood (Negative) Ur Leukocyte Esterase (Negative) Urine RBC (0-5) /hpf Urine WBC (0-5) /hpf Urine WBC Clumps (None) /hpf Microbiology - Last 24 Hours (Table) 08/19/22 11:09 Urine Culture - Preliminary Urine,Voided
[2022-08-20 11:37] LABS: Glucose,Whole Blood 125 mg/dL (70-110)
--- NOTE | 2022-08-20 12:00 | P.GSCN ---
History of Present Illness Consult date: 08/20/22 History of present illness: 82-year-old female known to me for a complicated urinary tract history. I initially met her in the hospital after hematuria urine infection and right- sided hydronephrosis. She eventually underwent retrograde pyelogram identifying what was felt to the 8 filling defect in the distal right ureter worrisome for carcinoma. Endoscopy found this to be an intraluminal defect that was biopsied negative for cancer. A stent was placed and I repeated the biopsy a few weeks later and again no distinct cancer was identified. 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 Discussed treatment options for the right ureteral obstruction including continued stent removal stent with the loss of kidney open surgical repair chronic nephrostomy tube. Given her chronically elevated creatinine at at least 2 I recommended that we maintain kidney function. We elected to exchange the double-J catheter with a ureteroscopic evaluation of the kidney. She was also known with chronic urinary frequency. On Thursday [facility] I performed stent exchange and right ureteroscopy which identify chronic scarring of the mid to distal ureter on the right side. There is no obvious malignancy. She has chronic inflammation of the bladder which is probably due to interstitial cystitis. The procedure was otherwise relatively uneventful. She was covered with antibiotics perioperatively. She came in the hospital and is somewhat weak. Her creatinine is mildly elevated. She did have an elevated white count. It has normalized. Review of Systems All systems: negative - Constitutional Denies fever, Denies weight loss - EENT Eyes: denies blurred vision Ears, nose, mouth and throat: Denies dysphagia - Cardiovascular Denies chest pain, Denies shortness of breath - Respiratory Denies cough, Denies 7 - Gastrointestinal Reports as per HPI - Genitourinary Genitourinary: Denies dysuria, Denies hematuria - Integumentary Denies rash, Denies unusual bruising - Neurological Denies headaches, Denies syncope - Hematologic/Lymphatic Denies easy bleeding, Denies easy bruising Past Medical History Past Medical History: Diabetes Mellitus, Hypertension, Renal Disease Additional Past Medical History / Comment(s): Type2, hypothyroidism, chronic back/neck pain, fibromyalgia History of Any Multi-Drug Resistant Organisms: None Reported Past Surgical History: Unable to Obtain Additional Past Surgical History / Comment(s): neck surgery, c-spine surgery, heart valve replacement, uerter stent placement 08/18/2022 Past Anesthesia/Blood Transfusion Reactions: No Reported Reaction Past Psychological History: No Psychological Hx Reported Smoking Status: Never smoker Past Alcohol Use History: None Reported Past Drug Use History: None Reported - Past Family History Family Family Medical History: No Reported History Medications and Allergies Home Medications Medication Instructions Recorded Confirmed Type Albuterol Inhaler [Ventolin Hfa 2 puff INHALATION RT-Q4H PRN 06/19/21 08/19/22 History Inhaler] Levothyroxine Sodium [Synthroid] 88 mcg PO DAILY 06/19/21 08/19/22 History Omeprazole 40 mg PO DAILY 06/19/21 08/19/22 History Tamsulosin [Flomax] 0.4 mg PO DAILY 02/03/22 08/19/22 History Hyoscyamine Sulfate [Levsin] 0.125 mg PO TID PRN 07/08/22 08/19/22 History Aspirin EC [Ecotrin Low Dose] 81 mg PO DAILY 07/28/22 08/19/22 History HYDROcodone/APAP 7.5-325MG [[place] 1 tab PO Q6HR PRN 07/28/22 08/19/22 History 7.5-325] Loratadine [Claritin] 10 mg PO DAILY PRN 07/28/22 08/19/22 History Mirabegron [Myrbetriq] 25 mg PO DAILY 07/28/22 08/19/22 History Pregabalin [Lyrica] 50 mg PO HS 07/28/22 08/19/22 History Pregabalin [Lyrica] 25 mg PO DAILY 08/19/22 08/19/22 History Tolterodine ER [Detrol LA] 2 mg PO DAILY 08/19/22 08/19/22 History amLODIPine [Norvasc] 5 mg PO DAILY 08/19/22 08/19/22 History polyethylene glycoL 3350 [Miralax] 17 gm PO DAILY PRN 08/19/22 08/19/22 History Allergies Allergy/AdvReac Type Severity Reaction Status Date / Time Penicillins Allergy Swelling Verified 08/19/22 11:45 Sulfa (Sulfonamide Allergy Unknown Verified 08/19/22 11:45 Antibiotics) clindamycin AdvReac Nausea & Verified 08/19/22 11:45 Vomiting morphine AdvReac Nausea & Verified 08/19/22 11:45 Vomiting Surgical - Exam Vital Signs Temp Pulse Resp BP Pulse Ox 98.5 F 88 18 106/45 95 08/19/22 10:28 08/19/22 10:28 08/19/22 10:28 08/19/22 10:28 08/19/22 10:28 - General well developed, well nourished, no distress - Eyes normal ocular movement, no icteric - ENT no hearing loss, no congestion - Neck no masses, trachea midline - Respiratory normal respiratory effort, clear to auscultation - Abdomen Abdomen: soft, non tender, no guarding, no rigid, no rebound - Integumentary no rash, no abnormal pigmentation - Neurologic no disoriented, no combative - Psychiatric oriented to time, oriented to person, oriented to place, speech is normal, memory intact Results - Labs 08/20/22 07:38 08/20/22 07:38 Abnormal Lab Results - Last 24 Hours (Table) 08/19/22 08/19/22 08/19/22 Range/Units 11:09 11:09 11:09 RBC (3.80-5.40) m/uL Hgb (11.4-16.0) gm/dL Hct (34.0-46.0) % RDW (11.5-15.5) % Plt Count (150-450) k/uL Neutrophils # (1.3-7.7) k/uL Lymphocytes # (1.0-4.8) k/uL PT 12.5 H (9.0-12.0) sec INR 1.2 H (<1.2) Sodium (137-145) mmol/L Carbon Dioxide (22-30) mmol/L BUN (7-17) mg/dL Creatinine (0.52-1.04) mg/dL Glucose (74-99) mg/dL POC Glucose (mg/dL) (70-110) mg/dL Calcium (8.4-10.2) mg/dL Troponin I 0.329 H* (0.000-0.034) ng/mL Total Protein (6.3-8.2) g/dL Albumin (3.5-5.0) g/dL Urine Appearance Turbid H (Clear) Urine Protein 2+ H (Negative) Urine Blood Large H (Negative) Ur Leukocyte Esterase Large H (Negative) Urine RBC >182 H (0-5) /hpf Urine WBC >182 H (0-5) /hpf Urine WBC Clumps Many H (None) /hpf 08/19/22 08/19/22 08/19/22 Range/Units 14:51 17:34 17:41 RBC (3.80-5.40) m/uL Hgb (11.4-16.0) gm/dL Hct (34.0-46.0) % RDW (11.5-15.5) % Plt Count (150-450) k/uL Neutrophils # (1.3-7.7) k/uL Lymphocytes # (1.0-4.8) k/uL PT (9.0-12.0) sec INR (<1.2) Sodium (137-145) mmol/L Carbon Dioxide (22-30) mmol/L BUN (7-17) mg/dL Creatinine (0.52-1.04) mg/dL Glucose (74-99) mg/dL POC Glucose (mg/dL) 134 H (70-110) mg/dL Calcium (8.4-10.2) mg/dL Troponin I 0.403 H* 0.353 H* (0.000-0.034) ng/mL Total Protein (6.3-8.2) g/dL Albumin (3.5-5.0) g/dL Urine Appearance (Clear) Urine Protein (Negative) Urine Blood (Negative) Ur Leukocyte Esterase (Negative) Urine RBC (0-5) /hpf Urine WBC (0-5) /hpf Urine WBC Clumps (None) /hpf 08/19/22 08/20/22 08/20/22 Range/Units 20:15 04:41 07:38 RBC 2.53 L (3.80-5.40) m/uL Hgb 7.6 L (11.4-16.0) gm/dL Hct 24.4 L (34.0-46.0) % RDW 17.1 H (11.5-15.5) % Plt Count 137 L (150-450) k/uL Neutrophils # 9.5 H (1.3-7.7) k/uL Lymphocytes # 0.6 L (1.0-4.8) k/uL PT (9.0-12.0) sec INR (<1.2) Sodium (137-145) mmol/L Carbon Dioxide (22-30) mmol/L BUN (7-17) mg/dL Creatinine (0.52-1.04) mg/dL Glucose (74-99) mg/dL POC Glucose (mg/dL) 133 H 163 H (70-110) mg/dL Calcium (8.4-10.2) mg/dL Troponin I (0.000-0.034) ng/mL Total Protein (6.3-8.2) g/dL Albumin (3.5-5.0) g/dL Urine Appearance (Clear) Urine Protein (Negative) Urine Blood (Negative) Ur Leukocyte Esterase (Negative) Urine RBC (0-5) /hpf Urine WBC (0-5) /hpf Urine WBC Clumps (None) /hpf 08/20/22 08/20/22 Range/Units 07:38 11:30 RBC (3.80-5.40) m/uL Hgb (11.4-16.0) gm/dL Hct (34.0-46.0) % RDW (11.5-15.5) % Plt Count (150-450) k/uL Neutrophils # (1.3-7.7) k/uL Lymphocytes # (1.0-4.8) k/uL PT (9.0-12.0) sec INR (<1.2) Sodium 134 L (137-145) mmol/L Carbon Dioxide 19 L (22-30) mmol/L BUN 46 H (7-17) mg/dL Creatinine 2.73 H (0.52-1.04) mg/dL Glucose 127 H (74-99) mg/dL POC Glucose (mg/dL) 125 H (70-110) mg/dL Calcium 8.0 L (8.4-10.2) mg/dL Troponin I (0.000-0.034) ng/mL Total Protein 5.9 L (6.3-8.2) g/dL Albumin 2.8 L (3.5-5.0) g/dL Urine Appearance (Clear) Urine Protein (Negative) Urine Blood (Negative) Ur Leukocyte Esterase (Negative) Urine RBC (0-5) /hpf Urine WBC (0-5) /hpf Urine WBC Clumps (None) /hpf Microbiology - Last 24 Hours (Table) 08/19/22 11:09 Urine Culture - Preliminary Urine,Voided Diabetes panel 08/20/22 Range/Units 07:38 Sodium 134 L (137-145) mmol/L Potassium 4.3 (3.5-5.1) mmol/L Chloride 106 (98-107) mmol/L Carbon Dioxide 19 L (22-30) mmol/L BUN 46 H (7-17) mg/dL Creatinine 2.73 H (0.52-1.04) mg/dL Glucose 127 H (74-99) mg/dL Calcium 8.0 L (8.4-10.2) mg/dL AST 27 (14-36) U/L ALT 15 (4-34) U/L Alkaline Phosphatase 77 (38-126) U/L Total Protein 5.9 L (6.3-8.2) g/dL Albumin 2.8 L (3.5-5.0) g/dL Calcium panel 08/20/22 Range/Units 07:38 Calcium 8.0 L (8.4-10.2) mg/dL Albumin 2.8 L (3.5-5.0) g/dL Pituitary panel 08/20/22 Range/Units 07:38 Sodium 134 L (137-145) mmol/L Potassium 4.3 (3.5-5.1) mmol/L Chloride 106 (98-107) mmol/L Carbon Dioxide 19 L (22-30) mmol/L BUN 46 H (7-17) mg/dL Creatinine 2.73 H (0.52-1.04) mg/dL Glucose 127 H (74-99) mg/dL Calcium 8.0 L (8.4-10.2) mg/dL Adrenal panel 08/20/22 Range/Units 07:38 Sodium 134 L (137-145) mmol/L Potassium 4.3 (3.5-5.1) mmol/L Chloride 106 (98-107) mmol/L Carbon Dioxide 19 L (22-30) mmol/L BUN 46 H (7-17) mg/dL Creatinine 2.73 H (0.52-1.04) mg/dL Glucose 127 H (74-99) mg/dL Calcium 8.0 L (8.4-10.2) mg/dL Total Bilirubin 0.5 (0.2-1.3) mg/dL AST 27 (14-36) U/L ALT 15 (4-34) U/L Alkaline Phosphatase 77 (38-126) U/L Total Protein 5.9 L (6.3-8.2) g/dL Albumin 2.8 L (3.5-5.0) g/dL - Imaging US - kidney/bladder: report reviewed, image reviewed Assessment and Plan Assessment: Impression: I suspect this patient has had a perioperative infection despite a ntibiotics from the above-mentioned surgical procedure. Recommendations: The patient is on antibiotics and I concur with the present management. She does have a double-J catheter on the right and there is no hydronephrosis. Her hemoglobins a little bit low but this is chronic also. I'll follow this patient with you.
--- NOTE | 2022-08-20 12:00 | P.CRDCN ---
History of Present Illness Consult date: 08/20/22 Reason for Consult (text): Cardiology evaluation, elevated troponin History of present illness: History of present illness: This is an 82-year-old female with past medical history of TAVR in 2020, follows with Dr. Cantu, history of hypertension, diabetes mellitus, hypothyroidism, chronic kidney disease We have been asked to evaluate the patient for elevated troponins. Patient presented to the emergency center due to increased weakness for the past couple days and no appetite yesterday. No nausea or vomiting or diarrhea. Patient was found to be febrile with temperature maximum 101.6, otherwise vital signs are stable. She did have a period of a sinus tachycardia at 128 bpm 2 AM secondary to fever. Patient states that she came in because she was "out of it" and is not feeling so good right now. No complaints of chest pain. She states she feels a little congested. She has been started on antibiotics for urinary tract infection EKG Sinus rhythm with left bundle branch block Chest x-ray:No acute findings Abdominal x-ray right ureteral stent Abdominal ultrasound no hydronephrosis, no nephrolithiasis Troponin 0.3-9, 0.403, 0.353. WBC 17.3, hemoglobin 8.9, platelet count 19.8. INR 1.2. BUN 41 creatinine 2.28. Sodium 134, potassium 4.3, CO2 19 Urinalysis positive for infection Home cardiac medications: Amlodipine 5 mg daily, aspirin 81 mg daily, levothyroxine 88 g daily Review Of Systems: At the time of my evaluation: Constitutional: No fever, no chills. Reports weakness, and fatigue and noted lethargy. EENT: No headache. No dizziness. Lungs: No shortness of breath, cough, no sputum production. No wheezing. Cardiovascular: No chest pain, no lower extremity edema. No palpitations. No paroxysmal nocturnal dyspnea. No orthopnea. No lightheadedness or dizziness. No syncopal episodes. Abdominal: No abdominal pain. No nausea, vomiting. No diarrhea. No constipation. No bloody or tarry stools. Genitourinary: No dysuria.. No urinary retention. Musculoskeletal: No myalgias. Reports muscle weakness, no frequent falls. No back pain. No neck pain. Integumentary: No wounds. No rash. No unusual bruising. Neurologic: No aphasia. No facial droop. No change in mentation. No head injury. No headache. Physical examination: Gen: This is an ill-appearing 82-year-old patient female. She is resting in bed appears to be in no acute distress. No respiratory distress noted. VS: reviewed HEENT: Head is atraumatic, normocephalic. Pupils equal, round. Sclerae is anicteric. NECK: Supple. No JVD. LUNGS: Clear to auscultation. No wheezes or rhonchi. No intercostal retractions. HEART: Regular rate and rhythm. Soft systolic murmur. ABDOMEN: Soft No tenderness. EXTREMITIES: No pedal edema. No calf tenderness.Dorsalis pedis bilaterally NEUROLOGICAL: Patient is awake, alert and oriented x3. Assessment: Elevated troponins secondary to acute sepsis and UTI, chronic kidney disease History of TAVR Hypertension Diabetes mellitus Hypothyroidism Chronic kidney disease Plan: Continue patient's home cardiac medications Continue treatment for urinary tract infection Obtain 2-D echocardiogram and Doppler study to assess cardiac structure and function Further recommendations to follow based upon clinical course Thank you kindly for this consultation. Nurse practitioner note has been reviewed, I agree with documented findings and plan of care. Patient was seen and examined. Past Medical History Past Medical History: Diabetes Mellitus, Hypertension, Renal Disease Additional Past Medical History / Comment(s): Type2, hypothyroidism, chronic back/neck pain, fibromyalgia History of Any Multi-Drug Resistant Organisms: None Reported Past Surgical History: Unable to Obtain Additional Past Surgical History / Comment(s): neck surgery, c-spine surgery, heart valve replacement, uerter stent placement 08/18/2022 Past Anesthesia/Blood Transfusion Reactions: No Reported Reaction Past Psychological History: No Psychological Hx Reported Smoking Status: Never smoker Past Alcohol Use History: None Reported Past Drug Use History: None Reported - Past Family History Family Family Medical History: No Reported History Medications and Allergies Home Medications Medication Instructions Recorded Confirmed Type Albuterol Inhaler [Ventolin Hfa 2 puff INHALATION RT-Q4H PRN 06/19/21 08/19/22 History Inhaler] Levothyroxine Sodium [Synthroid] 88 mcg PO DAILY 06/19/21 08/19/22 History Omeprazole 40 mg PO DAILY 06/19/21 08/19/22 History Tamsulosin [Flomax] 0.4 mg PO DAILY 02/03/22 08/19/22 History Hyoscyamine Sulfate [Levsin] 0.125 mg PO TID PRN 07/08/22 08/19/22 History Aspirin EC [Ecotrin Low Dose] 81 mg PO DAILY 07/28/22 08/19/22 History HYDROcodone/APAP 7.5-325MG [[place] 1 tab PO Q6HR PRN 07/28/22 08/19/22 History 7.5-325] Loratadine [Claritin] 10 mg PO DAILY PRN 07/28/22 08/19/22 History Mirabegron [Myrbetriq] 25 mg PO DAILY 07/28/22 08/19/22 History Pregabalin [Lyrica] 50 mg PO HS 07/28/22 08/19/22 History Pregabalin [Lyrica] 25 mg PO DAILY 08/19/22 08/19/22 History Tolterodine ER [Detrol LA] 2 mg PO DAILY 08/19/22 08/19/22 History amLODIPine [Norvasc] 5 mg PO DAILY 08/19/22 08/19/22 History polyethylene glycoL 3350 [Miralax] 17 gm PO DAILY PRN 08/19/22 08/19/22 History Allergies Allergy/AdvReac Type Severity Reaction Status Date / Time Penicillins Allergy Swelling Verified 08/19/22 11:45 Sulfa (Sulfonamide Allergy Unknown Verified 08/19/22 11:45 Antibiotics) clindamycin AdvReac Nausea & Verified 08/19/22 11:45 Vomiting morphine AdvReac Nausea & Verified 08/19/22 11:45 Vomiting Physical Exam Vitals: Vital Signs Temp Pulse Pulse Resp BP BP Pulse Ox 08/20/22 06:16 97.7 F 92 20 97 08/20/22 04:45 98.7 F 97 18 117/61 98 08/20/22 04:15 101 F H 08/20/22 04:00 99.1 F 112 H 17 118/58 94 L 08/20/22 02:00 99.9 F H 128 H 19 121/71 95 08/20/22 00:00 66 16 128/71 93 L 08/19/22 20:00 98.1 F 62 18 102/52 91 L 08/19/22 16:36 100 F H 08/19/22 16:35 96 20 123/53 94 L 08/19/22 16:00 101.6 F H 92 18 120/59 91 L 08/19/22 14:30 101.1 F H 94 20 128/59 95 08/19/22 12:20 89 22 108/46 95 08/19/22 11:40 91 20 117/50 95 08/19/22 11:04 86 20 114/49 95 08/19/22 10:28 98.5 F 88 18 106/45 95 Intake and Output 08/19/22 08/20/22 08/20/22 22:59 06:59 14:59 Output Total 100 Balance -100 Output: Urine 100 Other: Voiding Method External Catheter External Catheter Results 08/20/22 07:38 08/20/22 07:38 Cardiac Enzymes 08/19/22 08/19/22 08/19/22 Range/Units 11:09 11:09 14:51 AST 31 (14-36) U/L Troponin I 0.329 H* 0.403 H* (0.000-0.034) ng/mL 08/19/22 Range/Units 17:34 AST (14-36) U/L Troponin I 0.353 H* (0.000-0.034) ng/mL Coagulation 08/19/22 Range/Units 11:09 PT 12.5 H (9.0-12.0) sec APTT 25.2 (22.0-30.0) sec CBC 08/19/22 Range/Units 11:09 WBC 17.3 H (3.8-10.6) k/uL RBC 2.97 L (3.80-5.40) m/uL Hgb 8.9 L (11.4-16.0) gm/dL Hct 29.1 L (34.0-46.0) % Plt Count 195 (150-450) k/uL Comprehensive Metabolic Panel 08/19/22 Range/Units 11:09 Sodium 134 L (137-145) mmol/L Potassium 4.6 (3.5-5.1) mmol/L Chloride 104 (98-107) mmol/L Carbon Dioxide 21 L (22-30) mmol/L BUN 41 H (7-17) mg/dL Creatinine 2.28 H (0.52-1.04) mg/dL Glucose 157 H (74-99) mg/dL Calcium 8.5 (8.4-10.2) mg/dL AST 31 (14-36) U/L ALT 18 (4-34) U/L Alkaline Phosphatase 91 (38-126) U/L Total Protein 7.0 (6.3-8.2) g/dL Albumin 3.5 (3.5-5.0) g/dL Current Medications Generic Name Dose Route Start Last Admin Trade Name Freq PRN Reason Stop Dose Admin Acetaminophen 650 mg 08/19/22 18:27 08/20/22 02:39 Acetaminophen Tab 325 Mg Tab PO 650 mg Q4HR PRN Administration Fever and/ or Mild Pain Hydrocodone Bitart/Acetaminophen 1 each 08/19/22 14:23 08/19/22 18:30 Hydrocodone/Apap 7.5-325mg 1 Each Tab PO 1 each Q6HR PRN Administration Pain Albuterol Sulfate 2.5 mg 08/19/22 16:18 Albuterol Nebulized 2.5 Mg/3 Ml INHALATION RT-Q4H PRN Shortness Of Breath Aspirin 81 mg 08/20/22 09:00 Aspirin 81 Mg PO DAILY [facility] Heparin Sodium (Porcine) 5,000 unit 08/20/22 00:00 08/19/22 22:44 Heparin Sodium,Porcine/Pf 5,000 Unit/0.5 Ml Syringe SQ 5,000 unit Q8HR RAY Administration Hyoscyamine 0.125 mg 08/19/22 14:23 Hyoscyamine Sulfate 0.125 Mg Tab PO TID PRN GI Upset Ceftriaxone Sodium 2 gm/ 50 mls @ 100 mls/hr 08/20/22 09:00 Sodium Chloride IVPB Q24HR [facility] Protocol Sodium Chloride 1,000 mls @ 75 mls/hr 08/19/22 14:15 08/20/22 04:57 Saline 0.9% IV Not Given .[id number] RAY Levothyroxine Sodium 88 mcg 08/20/22 06:30 08/20/22 05:57 Levothyroxine 88 Mcg Tab PO 88 mcg DAILY@0630 RAY Administration Loratadine 10 mg 08/19/22 16:18 Loratadine 10 Mg Tab PO DAILY PRN Allergy Symptoms Naloxone HCl 0.2 mg 08/19/22 14:09 Naloxone 0.4 Mg/Ml 1 Ml Vial IV Q2M PRN Opioid Reversal Mirabegron [ 25 mg 08/20/22 09:00 Myrbetriq] 25 Mg Tab PO .Er.24h DAILY RAY Pantoprazole Sodium 40 mg 08/20/22 07:30 08/20/22 05:57 Pantoprazole 40 Mg Tablet PO 40 mg [id number] RAY Administration Polyethylene Glycol 17 gm 08/19/22 16:18 Polyethylene Glycol 3350 17 Gm Powd.Pack PO DAILY PRN Constipation Pregabalin 25 mg 08/20/22 09:00 Pregabalin 25 Mg Cap PO DAILY RAY Pregabalin 50 mg 08/19/22 21:00 08/19/22 20:20 Pregabalin 50 Mg Cap PO 50 mg HS RAY Administration Tamsulosin HCl 0.4 mg 08/20/22 09:00 Tamsulosin 0.4 Mg Cap.Er.24h PO DAILY RAY Intake and Output 08/19/22 08/20/22 08/20/22 22:59 06:59 14:59 Output Total 100 Balance -100 Output: Urine 100 Other: Voiding Method External Catheter External Catheter 08/19/22 11:09 08/19/22 11:09
[2022-08-20] MEDS: ATORVASTATIN 40 MG TAB PO SCH (12:04)
[2022-08-20] MEDS: polyethylene glycoL 3350 17 GM POWD.PACK PO PRN (13:07)
--- NOTE | 2022-08-20 14:32 | CA ---
Transthoracic Echo Report Name: Nerissa Lr Age: 82 Gender: F : 1940 Exam Date: 08/20/2022 09:38 Exam Location: [place] [facility] Ht (in): 61 Wt (lb): 175 Ordering Physician: Poly Medina Attending/Referring Phys: [id number], [employer] Pooja Clayton RDCS Procedure CPT: Indications: LVF Cardiac Hx: TAVR Technical Quality: Good Contrast 1: Total Dose (mL): Contrast 2: Total Dose (mL): MEASUREMENTS (Male / Female) Normal Values 2D ECHO LV Diastolic Diameter PLAX 4.4 cm 4.2 - 5.9 / 3.9 - 5.3 cm LV Systolic Diameter PLAX 3.0 cm IVS Diastolic Thickness 1.4 cm 0.6 - 1.0 / 0.6 - 0.9 cm LVPW Diastolic Thickness 1.3 cm 0.6 - 1.0 / 0.6 - 0.9 cm LV Relative Wall Thickness 0.6 RV Internal Dim ED PLAX 3.2 cm LA Systolic Diameter LX 3.7 cm 3.0 - 4.0 / 2.7 - 3.8 cm LV Diastolic Volume MOD 4C 142.8 cm??? LV Systolic Volume MOD 4C 81.7 cm??? LV Ejection Fraction MOD 4C 42.8 % LV Diastolic Length 4C 9.1 cm LV Systolic Length 4C 7.7 cm LV Diastolic Volume MOD 2C 82.9 cm??? LV Systolic Volume MOD 2C 45.2 cm??? LV Ejection Fraction MOD 2C 45.5 % LV Diastolic Length 2C 8.4 cm LV Systolic Length 2C 7.3 cm LA Volume 77.4 cm??? 18 - 58 / 22 - 52 cm??? M-MODE Aortic Root Diameter MM 3.1 cm MV E Point Septal Separation 0.8 cm DOPPLER AV Peak Velocity 251.6 cm/s AV Peak Gradient 25.3 mmHg AV Mean Velocity 177.4 cm/s AV Mean Gradient 14.5 mmHg AV Velocity Time Integral 51.6 cm LVOT Peak Velocity 105.5 cm/s LVOT Peak Gradient 4.5 mmHg MV Peak Velocity 212.1 cm/s MV Peak Gradient 18.0 mmHg MV Mean Velocity 149.1 cm/s MV Mean Gradient 9.5 mmHg MV Velocity Time Integral 50.2 cm MV Area PHT 3.3 cm??? Mitral E Point Velocity 128.5 cm/s Mitral A Point Velocity 176.4 cm/s Mitral E to A Ratio 0.7 MV Deceleration Time 240.8 ms MV E' Velocity 4.9 cm/s Mitral E to MV E' Ratio 26.4 TR Peak Velocity 279.4 cm/s TR Peak Gradient 31.2 mmHg Right Ventricular Systolic Press 35.2 mmHg PV Peak Velocity 182.8 cm/s PV Peak Gradient 13.4 mmHg FINDINGS Left Ventricle Left ventricular ejection fraction is estimated at 40-45 %. Moderately increased septal wall thickness. Mildly increased posterior wall thickness. Apical septum hupokinesis Right Ventricle Normal right ventricular size. Mild pulmonary hypertension. Right Atrium Normal right atrial size. Left Atrium Severely increased left atrial volume. Mildly increased left atrial area. Mitral Valve Mitral valve thickened. Moderate mitral annular calcification. Mild mitral regurgitation. MV gradient mean 10 mmHg and max 18 mmHg. Calcified chordea Aortic Valve Normal bioprostetic valve with mean gradient of 15 mmHg and max gradient of 25 mmHg Tricuspid Valve Structurally normal tricuspid valve. Mild tricuspid regurgitation. Pulmonic Valve Structurally normal pulmonic valve. Trace pulmonic regurgitation. Pericardium Normal pericardium. No pericardial effusion. Aorta Normal size aortic root and proximal ascending aorta. CONCLUSIONS Left ventricular ejection fraction 40-45% Moderately increased left ventricular wall thickness RVSP 35 Moderately dilated left atrium Mild mitral regurgitation Normally functioning prosthetic aortic valve with mean gradient 15 mmHg. No aortic insufficiency Mild tricuspid regurgitation Previewed by: Dr. Ced Wilson DO (Electronically Signed) Final Date: 20 Aug 2022 14:31
[2022-08-20 16:21] LABS: Glucose,Whole Blood 128 mg/dL (70-110)
[2022-08-20 19:41] LABS: Glucose,Whole Blood 190 mg/dL (70-110)
[2022-08-20] MEDS: PREGABALIN 50 MG CAP PO SCH (21:26)
[2022-08-21] MEDS: HEPARIN SODIUM,PORCINE/PF 5,000 UNIT/0.5 ML SYRINGE SQ SCH ×3 (00:24→16:17)
[2022-08-21] MEDS: HYDROcodone/APAP 7.5-325MG 1 EACH TAB PO PRN ×3 (00:24→21:41)
[2022-08-21] MEDS: ALBUTEROL NEBULIZED 2.5 MG/3 ML INHALATION PRN ×5 (03:55→20:16)
[2022-08-21 05:51] LABS: Glucose,Whole Blood 122 mg/dL (70-110)
[2022-08-21] MEDS: LEVOTHYROXINE 88 MCG TAB PO SCH (06:14)
[2022-08-21] MEDS: PANTOPRAZOLE 40 MG TABLET PO SCH (06:15)
[2022-08-21] MEDS ORDERED: FUROSEMIDE 10 MG/ML 4 ML VIAL IV STA (08:45)
[2022-08-21] MEDS: TAMSULOSIN 0.4 MG CAP.ER.24H PO SCH (08:56)
[2022-08-21] MEDS: ATORVASTATIN 40 MG TAB PO SCH (08:56)
[2022-08-21] MEDS: PREGABALIN 25 MG CAP PO SCH (08:56)
[2022-08-21] MEDS: ASPIRIN 81 MG PO SCH (08:56)
[2022-08-21 10:51] LABS: Anisocytosis Slight; Basophils % (A) 0 %; Eosinophils % (A) 1 %; HCT 24.6 % (34.0-46.0); HGB 7.8 gm/dL (11.4-16.0); Hypochromasia Marked; Lymphocytes # (A) 0.5 k/uL (1.0-4.8); Lymphocytes % (A) 7 %; MCH 31.1 pg (25.0-35.0); MCHC 31.6 g/dL (31.0-37.0); MCV 98.5 fL (80.0-100.0); Macrocytosis Slight; Mean Platelet Volume 10.9; Monocytes # (A) 0.3 k/uL (0-1.0); Monocytes % (A) 4 %; Neutrophils # (A) 5.8 k/uL (1.3-7.7); Neutrophils % (A) 85 %; Platelet Count 125 k/uL (150-450); WBC 6.8 k/uL (3.8-10.6)
[2022-08-21] MEDS: Mirabegron [Myrbetriq] 25 MG Tab.Er.24h PO SCH (11:02)
[2022-08-21 11:14] LABS: Calcium 7.9 mg/dL (8.4-10.2); Potassium 4.2 mmol/L (3.5-5.1)
[2022-08-21 11:20] LABS: Glucose,Whole Blood 131 mg/dL (70-110)
--- NOTE | 2022-08-21 11:43 | P.PN ---
Subjective Progress Note Date: 08/21/22 History of present illness: This is an 82-year-old female with past medical history of TAVR in 2020, follows with Dr. Cantu, history of hypertension, diabetes mellitus, hypothyroidism, chronic kidney disease We have been asked to evaluate the patient for elevated troponins. Patient presented to the emergency center due to increased weakness for the past couple days and no appetite yesterday. No nausea or vomiting or diarrhea. Patient was found to be febrile with temperature maximum 101.6, otherwise vital signs are stable. She did have a period of a sinus tachycardia at 128 bpm 2 AM secondary to fever. Patient states that she came in because she was "out of it" and is not feeling so good right now. No complaints of chest pain. She states she feels a little congested. She has been started on antibiotics for urinary tract infection EKG Sinus rhythm with left bundle branch block Chest x-ray:No acute findings Abdominal x-ray right ureteral stent Abdominal ultrasound no hydronephrosis, no nephrolithiasis Troponin 0.3-9, 0.403, 0.353. WBC 17.3, hemoglobin 8.9, platelet count 19.8. I NR 1.2. BUN 41 creatinine 2.28. Sodium 134, potassium 4.3, CO2 19 Urinalysis positive for infection Home cardiac medications: Amlodipine 5 mg daily, aspirin 81 mg daily, levothyroxine 88 g daily 08/21 Patient is seen today in follow-up. She continues to not feel well in general but denies any chest pain or shortness of breath. Been continued on IV antibiotics for urinary tract infection. Echocardiogram reveals EF of 40-45%, moderately increased left ventricular wall thickness, RVSP 35, moderately dilated left atrium, mild mitral regurgitation, prosthetic aortic valve normally functioning with 15 mmHg mean gradient, no aortic insufficiency, mild tricuspid regurgitation. WBC 6.8, hemoglobin 7.8, platelet count 125. Potassium 4.2, BUN 47 creatinine 2.66. Attending ordered 1 dose of IV Lasix today. Physical examination: Gen: This is an ill-appearing 82-year-old patient female. She is resting in chair appears to be in no acute distress. No respiratory distress noted. VS: reviewed HEENT: Head is atraumatic, normocephalic. Pupils equal, round. Sclerae is anicteric. NECK: Supple. No JVD. LUNGS: Clear to auscultation. No wheezes or rhonchi. No intercostal retractions. HEART: Regular rate and rhythm. Soft systolic murmur. ABDOMEN: Soft No tenderness. EXTREMITIES: No pedal edema. No calf tenderness.Dorsalis pedis bilaterally NEUROLOGICAL: Patient is awake, alert and oriented x3. Assessment: Elevated troponins secondary to acute sepsis and UTI, chronic kidney disease History of TAVR Hypertension Diabetes mellitus Hypothyroidism Chronic kidney disease Plan: Continue patient's home cardiac medications Continue treatment for urinary tract infection Agree with Lasix 40 mg Will add in daily for couple days. Further recommendations to follow based upon clinical course Thank you kindly for this consultation. Nurse practitioner note has been reviewed, I agree with documented findings and plan of care. Patient was seen and examined. Objective - Vital Signs Vital signs: Vital Signs Temp 98.5 F 08/21/22 04:00 Pulse 104 H 08/21/22 08:52 Resp 20 08/21/22 04:00 BP 120/64 08/21/22 04:00 Pulse Ox 97 08/21/22 08:40 FiO2 Intake & Output 08/20/22 08/21/22 08/21/22 18:59 06:59 18:59 Intake Total 1080 Output Total 300 Balance 1080 -300 Intake: Oral 1080 Output: Urine 300 Other: Voiding Method External Catheter Bedside Commode Diaper # Voids 1 2 # Bowel Movements 1 - Labs CBC & Chem 7: 08/21/22 10:16 08/21/22 10:16 Labs: Abnormal Lab Results - Last 24 Hours (Table) 08/20/22 08/20/22 08/20/22 Range/Units 11:30 12:10 16:19 POC Glucose (mg/dL) 125 H 128 H (70-110) mg/dL Magnesium 2.6 H (1.6-2.3) mg/dL 08/20/22 08/21/22 Range/Units 19:39 05:49 POC Glucose (mg/dL) 190 H 122 H (70-110) mg/dL Magnesium (1.6-2.3) mg/dL Microbiology - Last 24 Hours (Table) 08/19/22 14:15 Blood Culture - Preliminary Blood 08/19/22 14:30 Blood Culture - Preliminary Blood 08/19/22 11:09 Urine Culture - Final Urine,Voided
--- NOTE | 2022-08-21 14:09 | P.PN ---
Subjective Progress Note Date: 08/21/22 Hospital Course: 82-year-old female with a history of hypertension, hypothyroidism, recent urologic procedure presenting with generalized weakness. In the ED, initial temperature was 98.5, pulse 88, blood pressure 106/45, saturating at 95% on room air. Subsequently temperature did go up to 101.1, pulse 94. WBC 17.3, hemoglobin 8.9 (chronic), sodium 134, creatinine 2.28 (baseline 1.6), magnesium 1.5, troponin 0.329, UA positive for leukocyte esterase, negative nitrites, large blood. EKG personally interpreted shows sinus rhythm, left bundle branch block, not new. Renal ultrasound shows no hydronephrosis or nephrolithiasis, chest x-ray shows no acute process. Abdominal x-ray shows right ureteral stent. Patient admitted for generalized weakness, likely in the setting of sepsis. Urology and cardiology consulted. Urology thinks his perioperative infection. Continue antibiotics. Cardiology believed that elevated troponin less likely to be ACS. Echocardiogram showed LVEF 40-45%, RVSP 35. Subjective: Seen and examined at bedside. No acute events overnight. Weakness has improved, does have shortness of breath, and orthopnea. On supplemental oxygen. Denies any chest pain, abdominal pain, nausea, vomiting, diarrhea, constipation. Pertinent positives and negatives as discussed above, a complete review of systems was performed and all other systems are negative. Vitals Signs Reviewed. General: nontoxic, no distress, appears at stated age Derm: warm, dry Head: atraumatic, normocephalic, symmetric Eyes: EOMI, no lid lag, anicteric sclera, pupils equal round reactive to light ENT: Nose and ears atraumatic Neck: No thyromegaly, supple Mouth: no lip lesion, mucus membranes moist Cardiovascular: S1S2 reg, no murmur, trace peripheral edema Lungs: Bilateral rales at the bases, no wheeze, no accessory muscle use, supplemental oxygen Abdominal: soft, nontender to palpation, no guarding, no appreciable organomegaly Ext: no gross muscle atrophy, muscle strength muscle strength 5 out of 5 in all 4 extremities, no contractures Neuro: CN II-XII grossly intact Psych: Alert, oriented, appropriate affect Data Reviewed Today: Pertinent Labs: WBC 6.8, 11 7.8, platelet 125, sodium 134, creatinine 2.66, blood glucose range between 122-190 Imaging: Echocardiogram report reviewed, showed LVEF 4045%, RVSP 35 Assessment and Plan: Active: Severe sepsis secondary to urinary tract infection Recent ureteral stent placement Acute kidney injury, improving Acute hypoxic respiratory failure Acute systolic heart failure exacerbation Pulmonary vascular congestion, mild Type 2 NSTEMI Generalized weakness History of left bundle branch block History of hypertension Chronic constipation -Blood cultures pending and urine cultures no growth to date -Continue ceftriaxone 2 g IV every 24 hours -Urology note reviewed from 08/20 likely perioperative and, continue antibiotics -Continue to wean oxygen -IV Lasix 40 mg daily -Personally discussed management with cardiology, continue IV Lasix daily -On aspirin 81 mg daily, atorvastatin 40 mg daily -Continue to hold amlodipine in the setting of sepsis -PT/OT -Bowel regimen Resolved: Hypomagnesemia Chronic: Hypothyroidism DVT ppx: Subcu heparin Code status: No code Anticipated discharge place: Pending clinical course Anticipated discharge time: Pending clinical course Objective - Vital Signs Vital signs: Vital Signs Temp 98.2 F 08/21/22 08:15 Pulse 98 08/21/22 12:04 Resp 20 08/21/22 08:15 BP 130/69 08/21/22 08:15 Pulse Ox 97 08/21/22 08:40 FiO2 Intake & Output 08/20/22 08/21/22 08/21/22 18:59 06:59 18:59 Intake Total 1080 236 Output Total 300 350 Balance 1080 -300 -114 Intake: Oral 1080 236 Output: Urine 300 350 Other: Voiding Method External Catheter Bedside Commode Diaper # Voids 1 2 # Bowel Movements 1 - Labs CBC & Chem 7: 08/21/22 10:16 08/21/22 10:16 Labs: Abnormal Lab Results - Last 24 Hours (Table) 08/20/22 08/20/22 08/21/22 Range/Units 16:19 19:39 05:49 RBC (3.80-5.40) m/uL Hgb (11.4-16.0) gm/dL Hct (34.0-46.0) % RDW (11.5-15.5) % Plt Count (150-450) k/uL Lymphocytes # (1.0-4.8) k/uL Sodium (137-145) mmol/L Carbon Dioxide (22-30) mmol/L BUN (7-17) mg/dL Creatinine (0.52-1.04) mg/dL Glucose (74-99) mg/dL POC Glucose (mg/dL) 128 H 190 H 122 H (70-110) mg/dL Calcium (8.4-10.2) mg/dL 08/21/22 08/21/22 08/21/22 Range/Units 10:16 10:16 11:14 RBC 2.50 L (3.80-5.40) m/uL Hgb 7.8 L (11.4-16.0) gm/dL Hct 24.6 L (34.0-46.0) % RDW 17.0 H (11.5-15.5) % Plt Count 125 L (150-450) k/uL Lymphocytes # 0.5 L (1.0-4.8) k/uL Sodium 134 L (137-145) mmol/L Carbon Dioxide 17 L (22-30) mmol/L BUN 47 H (7-17) mg/dL Creatinine 2.66 H (0.52-1.04) mg/dL Glucose 145 H (74-99) mg/dL POC Glucose (mg/dL) 131 H (70-110) mg/dL Calcium 7.9 L (8.4-10.2) mg/dL Microbiology - Last 24 Hours (Table) 08/19/22 14:15 Blood Culture - Preliminary Blood 08/19/22 14:30 Blood Culture - Preliminary Blood 08/19/22 11:09 Urine Culture - Final Urine,Voided
[2022-08-21 16:32] LABS: Glucose,Whole Blood 136 mg/dL (70-110)
[2022-08-21] MEDS ORDERED: DARBEPOETIN ALFA 25 MCG/ML 1 ML VIAL SQ SCH ×2 (18:30→20:00)
[2022-08-21 20:02] LABS: Glucose,Whole Blood 155 mg/dL (70-110)
[2022-08-21] MEDS: PREGABALIN 50 MG CAP PO SCH (21:41)
[2022-08-22] MEDS: HEPARIN SODIUM,PORCINE/PF 5,000 UNIT/0.5 ML SYRINGE SQ SCH ×4 (00:55→22:55)
[2022-08-22] MEDS: LEVOTHYROXINE 88 MCG TAB PO SCH (06:19)
[2022-08-22] MEDS: PANTOPRAZOLE 40 MG TABLET PO SCH (06:19)
[2022-08-22 06:42] LABS: Glucose,Whole Blood 121 mg/dL (70-110)
[2022-08-22] MEDS: TAMSULOSIN 0.4 MG CAP.ER.24H PO SCH (08:56)
[2022-08-22] MEDS: PREGABALIN 25 MG CAP PO SCH (08:56)
[2022-08-22] MEDS: ATORVASTATIN 40 MG TAB PO SCH (08:56)
[2022-08-22] MEDS: ASPIRIN 81 MG PO SCH (08:56)
[2022-08-22] MEDS: ALBUTEROL NEBULIZED 2.5 MG/3 ML INHALATION PRN ×4 (09:00→21:38)
[2022-08-22] MEDS: FUROSEMIDE 10 MG/ML 4 ML VIAL IV SCH (09:24)
[2022-08-22] MEDS: polyethylene glycoL 3350 17 GM POWD.PACK PO PRN (09:24)
[2022-08-22 10:15] LABS: Anisocytosis Slight; Basophils % (A) 0 %; Eosinophils # (A) 0.1 k/uL (0-0.7); Eosinophils % (A) 3 %; HCT 25.4 % (34.0-46.0); Hypochromasia Slight; Lymphocytes # (A) 0.7 k/uL (1.0-4.8); Lymphocytes % (A) 15 %; MCH 30.3 pg (25.0-35.0); MCHC 31.5 g/dL (31.0-37.0); MCV 96.5 fL (80.0-100.0); Mean Platelet Volume 11.5; Monocytes # (A) 0.3 k/uL (0-1.0); Monocytes % (A) 7 %; Neutrophils # (A) 3.4 k/uL (1.3-7.7); Neutrophils % (A) 71 %; Platelet Count 137 k/uL (150-450); RBC 2.63 m/uL (3.80-5.40); WBC 4.8 k/uL (3.8-10.6)
[2022-08-22] MEDS: Mirabegron [Myrbetriq] 25 MG Tab.Er.24h PO SCH (10:24)
[2022-08-22 10:44] LABS: Calcium 8.2 mg/dL (8.4-10.2); Potassium 4.3 mmol/L (3.5-5.1)
--- NOTE | 2022-08-22 11:00 | XR ---
EXAMINATION TYPE: XR chest 1V DATE OF EXAM: 08/22/2022 10:42 AM COMPARISON: Chest radiographs from 08/20/2022 TECHNIQUE: XR chest 1V Portable AP radiograph of the chest. CLINICAL INDICATION:Female, 82 years old with history of increasing wheezes; FINDINGS: Lungs/Pleura: There is no evidence of pleural effusion, focal consolidation, or pneumothorax. Pulmonary vascularity: Unremarkable. Heart/mediastinum: Cardiomediastinal silhouette is enlarged and stable. Atherosclerotic calcificatio ns are seen in the aorta. Previous aortic valve surgery noted. Musculoskeletal: No acute osseous pathology. IMPRESSION: Cardiomegaly with no acute process.
[2022-08-22 11:55] LABS: Glucose,Whole Blood 120 mg/dL (70-110)
[2022-08-22] MEDS: HYDROcodone/APAP 7.5-325MG 1 EACH TAB PO PRN ×2 (12:46→20:06)
--- NOTE | 2022-08-22 13:22 | P.PN ---
Subjective Progress Note Date: 08/22/22 History of present illness: This is an 82-year-old female with past medical history of TAVR in 2020, follows with Dr. Cantu, history of hypertension, diabetes mellitus, hypothyroidism, chronic kidney disease We have been asked to evaluate the patient for elevated troponins. Patient presented to the emergency center due to increased weakness for the past couple days and no appetite yesterday. No nausea or vomiting or diarrhea. Patient was found to be febrile with temperature maximum 101.6, otherwise vital signs are stable. She did have a period of a sinus tachycardia at 128 bpm 2 AM secondary to fever. Patient states that she came in because she was "out of it" and is not feeling so good right now. No complaints of chest pain. She states she feels a little congested. She has been started on antibiotics for urinary tract infection EKG Sinus rhythm with left bundle branch block Chest x-ray:No acute findings Abdominal x-ray right ureteral stent Abdominal ultrasound no hydronephrosis, no nephrolithiasis Troponin 0.3-9, 0.403, 0.353. WBC 17.3, hemoglobin 8.9, platelet count 19.8. I NR 1.2. BUN 41 creatinine 2.28. Sodium 134, potassium 4.3, CO2 19 Urinalysis positive for infection Home cardiac medications: Amlodipine 5 mg daily, aspirin 81 mg daily, levothyroxine 88 g daily 08/21 Patient is seen today in follow-up. She continues to not feel well in general but denies any chest pain or shortness of breath. Been continued on IV antibiotics for urinary tract infection. Echocardiogram reveals EF of 40-45%, moderately increased left ventricular wall thickness, RVSP 35, moderately dilated left atrium, mild mitral regurgitation, prosthetic aortic valve normally functioning with 15 mmHg mean gradient, no aortic insufficiency, mild tricuspid regurgitation. WBC 6.8, hemoglobin 7.8, platelet count 125. Potassium 4.2, BUN 47 creatinine 2.66. Attending ordered 1 dose of IV Lasix today. 08/22 Yesterday, patient was started on IV Lasix 40 mg daily and has been diuresing well. She states her breathing is better today specially when she is sitting up in a chair. Heart rate is in the 80s. BP 138/61. WBC 4.8, hemoglobin 8, platelet count 137. BUN 49 creatinine 2.86. Physical examination: Gen: This is an ill-appearing 82-year-old patient female. She is resting in chair appears to be in no acute distress. No respiratory distress noted. VS: reviewed HEENT: Head is atraumatic, normocephalic. Pupils equal, round. Sclerae is anicteric. NECK: Supple. No JVD. LUNGS: Diminished bilaterally. No intercostal retractions. HEART: Regular rate and rhythm. Soft systolic murmur. ABDOMEN: Soft No tenderness. EXTREMITIES: No pedal edema. No calf tenderness.Dorsalis pedis bilaterally NEUROLOGICAL: Patient is awake, alert and oriented x3. Assessment: Elevated troponins secondary to acute sepsis and UTI, chronic kidney disease History of TAVR Hypertension Diabetes mellitus Hypothyroidism Chronic kidney disease Plan: Continue patient's home cardiac medications Continue treatment for urinary tract infection Continue Lasix 40 mg IV daily, monitor I&O and daily weights, electrolytes and renal function Further recommendations to follow based upon clinical course Nurse practitioner note has been reviewed, I agree with documented findings and plan of care. Patient was seen and examined. Objective - Vital Signs Vital signs: Vital Signs Temp 98.1 F 08/22/22 08:00 Pulse 88 08/22/22 12:24 Resp 20 08/22/22 08:00 BP 138/61 08/22/22 08:00 Pulse Ox 94 L 08/22/22 12:12 FiO2 Intake & Output 08/21/22 08/22/22 08/22/22 18:59 06:59 18:59 Intake Total 354 118 Output Total 7801 623 5729 Balance -116 -431 -7047 Intake: Oral 354 118 Output: Urine 6295 106 0724 Other: Voiding Method Bedside Commode Bedside Commode Bedside Commode External Catheter External Catheter External Catheter - Labs CBC & Chem 7: 08/22/22 09:41 08/22/22 09:41 Labs: Abnormal Lab Results - Last 24 Hours (Table) 08/21/22 08/21/22 08/22/22 Range/Units 16:28 19:59 06:38 RBC (3.80-5.40) m/uL Hgb (11.4-16.0) gm/dL Hct (34.0-46.0) % RDW (11.5-15.5) % Plt Count (150-450) k/uL Lymphocytes # (1.0-4.8) k/uL Sodium (137-145) mmol/L Carbon Dioxide (22-30) mmol/L BUN (7-17) mg/dL Creatinine (0.52-1.04) mg/dL Glucose (74-99) mg/dL POC Glucose (mg/dL) 136 H 155 H 121 H (70-110) mg/dL Calcium (8.4-10.2) mg/dL 08/22/22 08/22/22 08/22/22 Range/Units 09:41 09:41 11:47 RBC 2.63 L (3.80-5.40) m/uL Hgb 8.0 L (11.4-16.0) gm/dL Hct 25.4 L (34.0-46.0) % RDW 17.0 H (11.5-15.5) % Plt Count 137 L (150-450) k/uL Lymphocytes # 0.7 L (1.0-4.8) k/uL Sodium 135 L (137-145) mmol/L Carbon Dioxide 20 L (22-30) mmol/L BUN 49 H (7-17) mg/dL Creatinine 2.86 H (0.52-1.04) mg/dL Glucose 144 H (74-99) mg/dL POC Glucose (mg/dL) 120 H (70-110) mg/dL Calcium 8.2 L (8.4-10.2) mg/dL Microbiology - Last 24 Hours (Table) 08/19/22 14:15 Blood Culture - Preliminary Blood 08/19/22 14:30 Blood Culture - Preliminary Blood
--- NOTE | 2022-08-22 13:25 | P.PN ---
Subjective Progress Note Date: 08/22/22 Hospital Course: 82-year-old female with a history of hypertension, hypothyroidism, recent urologic procedure presenting with generalized weakness. In the ED, initial temperature was 98.5, pulse 88, blood pressure 106/45, saturating at 95% on room air. Subsequently temperature did go up to 101.1, pulse 94. WBC 17.3, hemoglobin 8.9 (chronic), sodium 134, creatinine 2.28 (baseline 1.6), magnesium 1.5, troponin 0.329, UA positive for leukocyte esterase, negative nitrites, large blood. EKG personally interpreted shows sinus rhythm, left bundle branch block, not new. Renal ultrasound shows no hydronephrosis or nephrolithiasis, chest x-ray shows no acute process. Abdominal x-ray shows right ureteral stent. Patient admitted for generalized weakness, likely in the setting of sepsis. Urology and cardiology consulted. Urology thinks his perioperative infection. Continue antibiotics. Cardiology believed that elevated troponin less likely to be ACS. Echocardiogram showed LVEF 40-45%, RVSP 35. On IV Lasix Subjective: Seen and examined at bedside. No acute events overnight. Weakness has improved, and shortness of breath has improved. On supplemental oxygen. Denies any chest pain, abdominal pain, nausea, vomiting, diarrhea, constipation. Pertinent positives and negatives as discussed above, a complete review of systems was performed and all other systems are negative. Vitals Signs Reviewed. General: nontoxic, no distress, appears at stated age Derm: warm, dry Head: atraumatic, normocephalic, symmetric Eyes: EOMI, no lid lag, anicteric sclera, pupils equal round reactive to light ENT: Nose and ears atraumatic Neck: No thyromegaly, supple Mouth: no lip lesion, mucus membranes moist Cardiovascular: S1S2 reg, no murmur, trace peripheral edema Lungs: Bilateral rales at the bases, no wheeze, no accessory muscle use, supplemental oxygen Abdominal: soft, nontender to palpation, no guarding, no appreciable organomegaly Ext: no gross muscle atrophy, muscle strength muscle strength 5 out of 5 in all 4 extremities, no contractures Neuro: CN II-XII grossly intact Psych: Alert, oriented, appropriate affect Data Reviewed Today: Pertinent Labs: WBC 4.8, hemoglobin 8, platelet 137, sodium 135, bicarb 20, creatinine 2.86 Imaging: Chest x-ray personally interpreted, appears improved compared to 2 days ago Assessment and Plan: Active: Severe sepsis secondary to urinary tract infection Recent ureteral stent placement Acute kidney injury, stable creatinine Acute hypoxic respiratory failure Acute systolic heart failure exacerbation Pulmonary vascular congestion, mild Type 2 NSTEMI Generalized weakness History of left bundle branch block History of hypertension Chronic constipation Anemia of chronic kidney disease -Blood cultures pending and urine cultures no growth to date -Continue ceftriaxone 2 g IV every 24 hours, patient clinically improving -Urology following, likely perioperative infection, continue antibiotics -Continue to wean oxygen -IV Lasix 40 mg daily -Cardiology following -On aspirin 81 mg daily, atorvastatin 40 mg daily -Continue to hold amlodipine -PT/OT -Bowel regimen -Dimer Porten weekly Resolved: Hypomagnesemia Chronic: Hypothyroidism DVT ppx: Subcu heparin Code status: No code Anticipated discharge place: Subacute rehab Anticipated discharge time: 1-2 days Objective - Vital Signs Vital signs: Vital Signs Temp 98.1 F 08/22/22 08:00 Pulse 88 08/22/22 12:24 Resp 20 08/22/22 08:00 BP 138/61 08/22/22 08:00 Pulse Ox 94 L 08/22/22 12:12 FiO2 Intake & Output 08/21/22 08/22/22 08/22/22 18:59 06:59 18:59 Intake Total 354 118 Output Total 6344 035 2330 Balance -736 500 -3833 Intake: Oral 354 118 Output: Urine 8155 125 0824 Other: Voiding Method Bedside Commode Bedside Commode Bedside Commode External Catheter External Catheter External Catheter - Labs CBC & Chem 7: 08/22/22 09:41 08/22/22 09:41 Labs: Abnormal Lab Results - Last 24 Hours (Table) 08/21/22 08/21/22 08/22/22 Range/Units 16:28 19:59 06:38 RBC (3.80-5.40) m/uL Hgb (11.4-16.0) gm/dL Hct (34.0-46.0) % RDW (11.5-15.5) % Plt Count (150-450) k/uL Lymphocytes # (1.0-4.8) k/uL Sodium (137-145) mmol/L Carbon Dioxide (22-30) mmol/L BUN (7-17) mg/dL Creatinine (0.52-1.04) mg/dL Glucose (74-99) mg/dL POC Glucose (mg/dL) 136 H 155 H 121 H (70-110) mg/dL Calcium (8.4-10.2) mg/dL 08/22/22 08/22/22 08/22/22 Range/Units 09:41 09:41 11:47 RBC 2.63 L (3.80-5.40) m/uL Hgb 8.0 L (11.4-16.0) gm/dL Hct 25.4 L (34.0-46.0) % RDW 17.0 H (11.5-15.5) % Plt Count 137 L (150-450) k/uL Lymphocytes # 0.7 L (1.0-4.8) k/uL Sodium 135 L (137-145) mmol/L Carbon Dioxide 20 L (22-30) mmol/L BUN 49 H (7-17) mg/dL Creatinine 2.86 H (0.52-1.04) mg/dL Glucose 144 H (74-99) mg/dL POC Glucose (mg/dL) 120 H (70-110) mg/dL Calcium 8.2 L (8.4-10.2) mg/dL Microbiology - Last 24 Hours (Table) 08/19/22 14:15 Blood Culture - Preliminary Blood 08/19/22 14:30 Blood Culture - Preliminary Blood
[2022-08-22 16:57] LABS: Glucose,Whole Blood 159 mg/dL (70-110)
[2022-08-22 19:58] LABS: Glucose,Whole Blood 162 mg/dL (70-110)
[2022-08-22] MEDS: PREGABALIN 50 MG CAP PO SCH (20:05)
[2022-08-23] MEDS: HYDROcodone/APAP 7.5-325MG 1 EACH TAB PO PRN ×3 (01:56→21:38)
[2022-08-23] MEDS: PANTOPRAZOLE 40 MG TABLET PO SCH (05:41)
[2022-08-23] MEDS: LEVOTHYROXINE 88 MCG TAB PO SCH (05:41)
[2022-08-23 06:06] LABS: Glucose,Whole Blood 110 mg/dL (70-110)
[2022-08-23] MEDS: HEPARIN SODIUM,PORCINE/PF 5,000 UNIT/0.5 ML SYRINGE SQ SCH ×3 (08:03→23:29)
[2022-08-23] MEDS: PREGABALIN 25 MG CAP PO SCH (08:04)
[2022-08-23] MEDS: FUROSEMIDE 10 MG/ML 4 ML VIAL IV SCH (08:04)
[2022-08-23] MEDS: TAMSULOSIN 0.4 MG CAP.ER.24H PO SCH (08:04)
[2022-08-23] MEDS: ASPIRIN 81 MG PO SCH (08:04)
[2022-08-23] MEDS: ATORVASTATIN 40 MG TAB PO SCH (08:04)
[2022-08-23] MEDS: Mirabegron [Myrbetriq] 25 MG Tab.Er.24h PO SCH (08:05)
[2022-08-23] MEDS: polyethylene glycoL 3350 17 GM POWD.PACK PO PRN (08:14)
[2022-08-23 08:52] LABS: Anisocytosis Slight; Basophils % (A) 0 %; Eosinophils # (A) 0.2 k/uL (0-0.7); Eosinophils % (A) 4 %; HCT 25.9 % (34.0-46.0); HGB 8.2 gm/dL (11.4-16.0); Hypochromasia Slight; Lymphocytes % (A) 18 %; MCH 30.5 pg (25.0-35.0); MCHC 31.7 g/dL (31.0-37.0); MCV 96.3 fL (80.0-100.0); Mean Platelet Volume 11.1; Monocytes # (A) 0.3 k/uL (0-1.0); Monocytes % (A) 5 %; Neutrophils # (A) 3.6 k/uL (1.3-7.7); Neutrophils % (A) 69 %; Platelet Count 174 k/uL (150-450); RBC 2.69 m/uL (3.80-5.40); WBC 5.2 k/uL (3.8-10.6)
[2022-08-23 09:04] LABS: Calcium 8.4 mg/dL (8.4-10.2); Potassium 4.1 mmol/L (3.5-5.1)
[2022-08-23 11:25] LABS: Glucose,Whole Blood 115 mg/dL (70-110)
--- NOTE | 2022-08-23 11:34 | P.PN ---
Subjective Progress Note Date: 08/23/22 Hospital Course: 82-year-old female with a history of hypertension, hypothyroidism, recent urolo gic procedure presenting with generalized weakness. In the ED, initial temperature was 98.5, pulse 88, blood pressure 106/45, saturating at 95% on room air. Subsequently temperature did go up to 101.1, pulse 94. WBC 17.3, hemoglobin 8.9 (chronic), sodium 134, creatinine 2.28 (baseline 1.6), magnesium 1.5, troponin 0.329, UA positive for leukocyte esterase, negative nitrites, large blood. EKG personally interpreted shows sinus rhythm, left bundle branch block, not new. Renal ultrasound shows no hydronephrosis or nephrolithiasis, chest x-ray shows no acute process. Abdominal x-ray shows right ureteral stent. Patient admitted for generalized weakness, likely in the setting of sepsis. Urology and cardiology consulted. Urology thinks his perioperative infection. Continue antibiotics. Cardiology believed that elevated troponin less likely to be ACS. Echocardiogram showed LVEF 40-45%, RVSP 35. On IV Lasix. Subjective: Seen and examined at bedside. No acute events overnight. Weakness has improved, and shortness of breath has improved. Denies any chest pain, abdominal pain, nausea, vomiting, diarrhea, constipation. Pertinent positives and negatives as discussed above, a complete review of systems was performed and all other systems are negative. Vitals Signs Reviewed. General: nontoxic, no distress, appears at stated age Derm: warm, dry Head: atraumatic, normocephalic, symmetric Eyes: EOMI, no lid lag, anicteric sclera, pupils equal round reactive to light ENT: Nose and ears atraumatic Neck: No thyromegaly, supple Mouth: no lip lesion, mucus membranes moist Cardiovascular: S1S2 reg, no murmur, trace peripheral edema Lungs: Bilateral rales at the bases, no wheeze, no accessory muscle use, supplemental oxygen Abdominal: soft, nontender to palpation, no guarding, no appreciable organomegaly Ext: no gross muscle atrophy, muscle strength muscle strength 5 out of 5 in all 4 extremities, no contractures Neuro: CN II-XII grossly intact Psych: Alert, oriented, appropriate affect Data Reviewed Today: Pertinent Labs: WBC 5.2, hemoglobin 8.2, platelet 134, sodium 135, bicarb 22, creatinine 2.74 Imaging: No new imaging today Assessment and Plan: Active: Severe sepsis secondary to urinary tract infection Recent ureteral stent placement Acute kidney injury, stable creatinine Acute systolic heart failure exacerbation Pulmonary vascular congestion, mild Type 2 NSTEMI Generalized weakness History of left bundle branch block History of hypertension Chronic constipation Anemia of chronic kidney disease -Blood cultures pending and urine cultures no growth to date -Continue ceftriaxone 2 g IV every 24 hours, patient clinically improving -Urology following, likely perioperative infection, continue antibiotics -IV Lasix 40 mg daily -Cardiology following -On aspirin 81 mg daily, atorvastatin 40 mg daily -Continue to hold amlodipine -PT/OT -Bowel regimen -darbapoetin weekly Resolved: Hypomagnesemia Acute hypoxic respiratory failure Chronic: Hypothyroidism DVT ppx: Subcu heparin Code status: No code Anticipated discharge place: Subacute rehab Anticipated discharge time: 1-2 days Objective - Vital Signs Vital signs: Vital Signs Temp 97.9 F 08/22/22 20:00 Pulse 91 08/23/22 08:00 Resp 16 08/23/22 08:00 BP 118/47 08/23/22 08:00 Pulse Ox 95 08/23/22 08:00 FiO2 Intake & Output 08/22/22 08/23/22 08/23/22 18:59 06:59 18:59 Intake Total 236 1080 118 Output Total 2450 1100 250 Balance -2214 -20 -132 Weight 80 kg Intake: Oral 236 1080 118 Output: Urine 2450 1100 250 Other: Voiding Method Bedside Commode Bedside Commode Bedside Commode External Catheter External Catheter External Catheter # Voids 1 # Bowel Movements 1 - Labs CBC & Chem 7: 08/23/22 08:32 08/23/22 08:32 Labs: Abnormal Lab Results - Last 24 Hours (Table) 08/22/22 08/22/22 08/22/22 Range/Units 11:47 16:54 19:57 RBC (3.80-5.40) m/uL Hgb (11.4-16.0) gm/dL Hct (34.0-46.0) % RDW (11.5-15.5) % Sodium (137-145) mmol/L BUN (7-17) mg/dL Creatinine (0.52-1.04) mg/dL Glucose (74-99) mg/dL POC Glucose (mg/dL) 120 H 159 H 162 H (70-110) mg/dL 08/23/22 08/23/22 08/23/22 Range/Units 08:32 08:32 11:20 RBC 2.69 L (3.80-5.40) m/uL Hgb 8.2 L (11.4-16.0) gm/dL Hct 25.9 L (34.0-46.0) % RDW 17.0 H (11.5-15.5) % Sodium 134 L (137-145) mmol/L BUN 49 H (7-17) mg/dL Creatinine 2.74 H (0.52-1.04) mg/dL Glucose 158 H (74-99) mg/dL POC Glucose (mg/dL) 115 H (70-110) mg/dL Microbiology - Last 24 Hours (Table) 08/19/22 14:15 Blood Culture - Preliminary Blood 08/19/22 14:30 Blood Culture - Preliminary Blood
--- NOTE | 2022-08-23 12:27 | P.PN ---
Subjective Progress Note Date: 08/23/22 The patient is in the hospital post-right ureteroscopy with stent placement and cystoscopy. There is question whether she had an infection with sepsis. Her cultures have been negative. She is feeling better. She is going to rehab. Since I've seen her in the perioperative period in this hospitalization I don't need to see her in follow-up for 6 months at which time we'll have to exchange her stent again. Objective - Vital Signs Vital signs: Vital Signs Temp 97.9 F 08/22/22 20:00 Pulse 91 08/23/22 08:00 Resp 16 08/23/22 08:00 BP 118/47 08/23/22 08:00 Pulse Ox 95 08/23/22 08:00 FiO2 Intake & Output 08/22/22 08/23/22 08/23/22 18:59 06:59 18:59 Intake Total 236 1080 118 Output Total 2450 1100 250 Balance -2214 -20 -132 Weight 80 kg Intake: Oral 236 1080 118 Output: Urine 2450 1100 250 Other: Voiding Method Bedside Commode Bedside Commode Bedside Commode External Catheter External Catheter External Catheter # Voids 1 # Bowel Movements 1 - Labs CBC & Chem 7: 08/23/22 08:32 08/23/22 08:32 Labs: Abnormal Lab Results - Last 24 Hours (Table) 08/22/22 08/22/22 08/23/22 Range/Units 16:54 19:57 08:32 RBC 2.69 L (3.80-5.40) m/uL Hgb 8.2 L (11.4-16.0) gm/dL Hct 25.9 L (34.0-46.0) % RDW 17.0 H (11.5-15.5) % Sodium (137-145) mmol/L BUN (7-17) mg/dL Creatinine (0.52-1.04) mg/dL Glucose (74-99) mg/dL POC Glucose (mg/dL) 159 H 162 H (70-110) mg/dL 08/23/22 08/23/22 Range/Units 08:32 11:20 RBC (3.80-5.40) m/uL Hgb (11.4-16.0) gm/dL Hct (34.0-46.0) % RDW (11.5-15.5) % Sodium 134 L (137-145) mmol/L BUN 49 H (7-17) mg/dL Creatinine 2.74 H (0.52-1.04) mg/dL Glucose 158 H (74-99) mg/dL POC Glucose (mg/dL) 115 H (70-110) mg/dL Microbiology - Last 24 Hours (Table) 08/19/22 14:15 Blood Culture - Preliminary Blood 08/19/22 14:30 Blood Culture - Preliminary Blood
--- NOTE | 2022-08-23 13:57 | P.PN ---
Subjective Progress Note Date: 08/23/22 The patient is an 82-year-old female who was initially admitted to the hospital for weakness and malaise. Cardiology was consulted for elevated troponins. She was found to have a severe urinary tract infection and acute kidney injury. Echocardiogram has revealed reduced ejection fraction of 40-45% with apical septal hypokinesis. Normally functioning bioprosthetic TAVR and moderate MR. Miguel inhibitors are currently on hold due to acute kidney injury. Blood pressures have been stable throughout her course. The patient was interviewed and examined resting in the chair. She states she feels well and is able to ambulate from the bed to the bathroom without issue. Denies any chest pain or chest pressure. She states she is gradually feeling better GENERAL: Well-appearing, well-nourished and in no acute distress. NECK: Supple without JVD or thyromegaly. LUNGS: Breath sounds diminished to auscultation bilaterally. Respiration equal and unlabored. No wheezes, rales or rhonchi. HEART: Regular rate and rhythm. Soft systolic murmur. No rubs or gallops. S1 and S2 heard. EXTREMITIES: Normal range of motion, no edema. No clubbing or cyanosis. Peripheral pulses intact and strong. VITALS: Blood pressure 115/63, pulse 89, respiratory rate 16, SpO2 96% on room TELEMETRY: Sinus rhythm overnight IMPRESSION: Elevated troponins secondary to acute sepsis and UTI, chronic kidney disease Cardiomyopathy with EF of 40-45% History of TAVR Hypertension Diabetes mellitus Hypothyroidism PLAN: Transition to oral diuretics Start low-dose carvedilol for cardiomyopathy Further recommendations based on clinical course I am dictating on behalf of Dr Kasi Rodríguez's history/physical and assessment/pl an. Objective - Vital Signs Vital signs: Vital Signs Temp 97.9 F 08/22/22 20:00 Pulse 89 08/23/22 12:36 Resp 16 08/23/22 12:36 BP 115/63 08/23/22 12:36 Pulse Ox 96 08/23/22 12:36 FiO2 Intake & Output 08/22/22 08/23/22 08/23/22 18:59 06:59 18:59 Intake Total 236 1080 236 Output Total 2450 1100 250 Balance -2214 -20 -14 Weight 80 kg Intake: Oral 236 1080 236 Output: Urine 2450 1100 250 Other: Voiding Method Bedside Commode Bedside Commode Bedside Commode External Catheter External Catheter External Catheter # Voids 1 # Bowel Movements 1 - Labs CBC & Chem 7: 08/23/22 08:32 08/23/22 08:32 Labs: Abnormal Lab Results - Last 24 Hours (Table) 08/22/22 08/22/22 08/23/22 Range/Units 16:54 19:57 08:32 RBC 2.69 L (3.80-5.40) m/uL Hgb 8.2 L (11.4-16.0) gm/dL Hct 25.9 L (34.0-46.0) % RDW 17.0 H (11.5-15.5) % Sodium (137-145) mmol/L BUN (7-17) mg/dL Creatinine (0.52-1.04) mg/dL Glucose (74-99) mg/dL POC Glucose (mg/dL) 159 H 162 H (70-110) mg/dL 08/23/22 08/23/22 Range/Units 08:32 11:20 RBC (3.80-5.40) m/uL Hgb (11.4-16.0) gm/dL Hct (34.0-46.0) % RDW (11.5-15.5) % Sodium 134 L (137-145) mmol/L BUN 49 H (7-17) mg/dL Creatinine 2.74 H (0.52-1.04) mg/dL Glucose 158 H (74-99) mg/dL POC Glucose (mg/dL) 115 H (70-110) mg/dL Microbiology - Last 24 Hours (Table) 08/19/22 14:15 Blood Culture - Preliminary Blood 08/19/22 14:30 Blood Culture - Preliminary Blood
[2022-08-23] MEDS: carvediloL 3.125 MG TAB PO SCH (15:48)
[2022-08-23] MEDS: PREGABALIN 50 MG CAP PO SCH (20:03)
[2022-08-23] MEDS: ALBUTEROL NEBULIZED 2.5 MG/3 ML INHALATION PRN (20:46)
[2022-08-24] MEDS: HYDROcodone/APAP 7.5-325MG 1 EACH TAB PO PRN ×3 (03:22→20:21)
[2022-08-24] MEDS: PANTOPRAZOLE 40 MG TABLET PO SCH (06:03)
[2022-08-24] MEDS: carvediloL 3.125 MG TAB PO SCH ×2 (06:03→16:37)
[2022-08-24] MEDS: LEVOTHYROXINE 88 MCG TAB PO SCH (06:03)
[2022-08-24] MEDS: ASPIRIN 81 MG PO SCH (08:36)
[2022-08-24] MEDS: FUROSEMIDE 40 MG TAB PO SCH (08:36)
[2022-08-24] MEDS: PREGABALIN 25 MG CAP PO SCH (08:36)
[2022-08-24] MEDS: ALBUTEROL NEBULIZED 2.5 MG/3 ML INHALATION PRN (08:36)
[2022-08-24] MEDS: HEPARIN SODIUM,PORCINE/PF 5,000 UNIT/0.5 ML SYRINGE SQ SCH ×3 (08:36→23:04)
[2022-08-24] MEDS: ATORVASTATIN 40 MG TAB PO SCH (08:36)
[2022-08-24] MEDS: Mirabegron [Myrbetriq] 25 MG Tab.Er.24h PO SCH (08:37)
[2022-08-24] MEDS: TAMSULOSIN 0.4 MG CAP.ER.24H PO SCH (08:37)
[2022-08-24 09:53] LABS: Anisocytosis Slight; HCT 22.8 % (34.0-46.0); HGB 7.2 gm/dL (11.4-16.0); Hypochromasia Slight; MCHC 31.4 g/dL (31.0-37.0); MCV 95.4 fL (80.0-100.0); Mean Platelet Volume 11.4; Platelet Count 178 k/uL (150-450); RBC 2.39 m/uL (3.80-5.40); RDW 16.9 % (11.5-15.5); WBC 5.1 k/uL (3.8-10.6)
[2022-08-24 10:10] LABS: Calcium 8.2 mg/dL (8.4-10.2); Potassium 4.4 mmol/L (3.5-5.1)
[2022-08-24 11:46] LABS: Band Neutrophils % 1 %; Eosinophils # (M) 0.46 k/uL (0-0.7); Lymphocytes # (M) 1.43 k/uL (1.0-4.8); Monocytes # (M) 0.15 k/uL (0-1.0); Neutrophils % (M) 59 %; Nucleated Red Blood Cells 0 /100 WBC (0-0); Total Cells Counted 100
--- NOTE | 2022-08-24 12:49 | P.PN ---
Subjective Progress Note Date: 08/24/22 Hospital Course: 82-year-old female with a history of hypertension, hypothyroidism, recent urolo gic procedure presenting with generalized weakness. In the ED, initial temperature was 98.5, pulse 88, blood pressure 106/45, saturating at 95% on room air. Subsequently temperature did go up to 101.1, pulse 94. WBC 17.3, hemoglobin 8.9 (chronic), sodium 134, creatinine 2.28 (baseline 1.6), magnesium 1.5, troponin 0.329, UA positive for leukocyte esterase, negative nitrites, large blood. EKG personally interpreted shows sinus rhythm, left bundle branch block, not new. Renal ultrasound shows no hydronephrosis or nephrolithiasis, chest x-ray shows no acute process. Abdominal x-ray shows right ureteral stent. Patient admitted for generalized weakness, likely in the setting of sepsis. Urology and cardiology consulted. Urology thinks his perioperative infection. Continue antibiotics. Cardiology believed that elevated troponin less likely to be ACS. Echocardiogram showed LVEF 40-45%, RVSP 35. Was on IV Lasix, now switched to oral. Respiratory function improved. Pending subacute rehab placement. Subjective: Seen and examined at bedside. No acute events overnight. Weakness has improved, and shortness of breath has improved. Denies any chest pain, abdominal pain, nausea, vomiting, diarrhea, constipation. Pertinent positives and negatives as discussed above, a complete review of systems was performed and all other systems are negative. Vitals Signs Reviewed. General: nontoxic, no distress, appears at stated age Derm: warm, dry Head: atraumatic, normocephalic, symmetric Eyes: EOMI, no lid lag, anicteric sclera, pupils equal round reactive to light ENT: Nose and ears atraumatic Neck: No thyromegaly, supple Mouth: no lip lesion, mucus membranes moist Cardiovascular: S1S2 reg, no murmur, trace peripheral edema Lungs: Bilateral rales at the bases, no wheeze, no accessory muscle use, supplemental oxygen Abdominal: soft, nontender to palpation, no guarding, no appreciable organomegaly Ext: no gross muscle atrophy, muscle strength muscle strength 5 out of 5 in all 4 extremities, no contractures Neuro: CN II-XII grossly intact Psych: Alert, oriented, appropriate affect Data Reviewed Today: Pertinent Labs: WBC 5.1, hemoglobin 7.2, sodium 133, creatinine 2.75 Imaging: No new imaging today Assessment and Plan: Active: Severe sepsis secondary to urinary tract infection Recent ureteral stent placement Acute kidney injury, stable creatinine Acute systolic heart failure exacerbation Pulmonary vascular congestion, mild Type 2 NSTEMI Generalized weakness History of left bundle branch block History of hypertension Chronic constipation Anemia of chronic kidney disease -Blood cultures pending and urine cultures no growth to date -Continue ceftriaxone 2 g IV every 24 hours, patient clinically improving -Urology following, possible perioperative infection as a cultures have been negative, follow-up in 6 months for stent exchange -Cardiology following -On aspirin 81 mg daily, atorvastatin 40 mg daily -Started on carvedilol, and on oral diuretics -PT/OT -Bowel regimen -darbapoetin weekly Resolved: Hypomagnesemia Acute hypoxic respiratory failure Chronic: Hypothyroidism DVT ppx: Subcu heparin Code status: No code Anticipated discharge place: Subacute rehab Anticipated discharge time: 1-2 days Objective - Vital Signs Vital signs: Vital Signs Temp 97.6 F 08/24/22 08:42 Pulse 82 08/24/22 08:48 Resp 16 08/24/22 08:42 BP 118/59 08/24/22 08:42 Pulse Ox 93 L 08/24/22 08:42 FiO2 21 08/24/22 08:36 Intake & Output 08/23/22 08/24/22 08/24/22 18:59 06:59 18:59 Intake Total 354 358 Output Total 550 350 Balance -196 -350 358 Intake: Oral 354 358 Output: Urine 550 350 Other: Voiding Method Bedside Commode Bedside Commode Bedside Commode External Catheter External Catheter External Catheter # Voids 1 # Bowel Movements 1 - Labs CBC & Chem 7: 08/24/22 08:56 08/24/22 08:56 Labs: Abnormal Lab Results - Last 24 Hours (Table) 08/24/22 08/24/22 Range/Units 08:56 08:56 RBC 2.39 L (3.80-5.40) m/uL Hgb 7.2 L (11.4-16.0) gm/dL Hct 22.8 L (34.0-46.0) % RDW 16.9 H (11.5-15.5) % Sodium 133 L (137-145) mmol/L BUN 56 H (7-17) mg/dL Creatinine 2.75 H (0.52-1.04) mg/dL Glucose 112 H (74-99) mg/dL Calcium 8.2 L (8.4-10.2) mg/dL Microbiology - Last 24 Hours (Table) 08/19/22 14:15 Blood Culture - Preliminary Blood 08/19/22 14:30 Blood Culture - Preliminary Blood
--- NOTE | 2022-08-24 13:22 | P.PN ---
Subjective Progress Note Date: 08/24/22 The patient is an 82-year-old female who was initially admitted to the hospital for weakness and malaise. Cardiology was consulted for elevated troponins. She was found to have a severe urinary tract infection and acute kidney injury. Echocardiogram has revealed reduced ejection fraction of 40-45% with apical septal hypokinesis. Normally functioning bioprosthetic TAVR and moderate MR. Miguel inhibitors are currently on hold due to acute kidney injury. Blood pressures have been stable throughout her course. The patient was interviewed and examined resting in bed. She reports some right upper quadrant abdominal discomfort. No chest pain or chest pressure. No difficulty breathing. GENERAL: Well-appearing, well-nourished and in no acute distress. NECK: Supple without JVD or thyromegaly. LUNGS: Breath sounds diminished to auscultation bilaterally. Respiration equal and unlabored. Inspiratory wheeze on the right. HEART: Regular rate and rhythm. Soft systolic murmur. No rubs or gallops. S1 and S2 heard. EXTREMITIES: Normal range of motion, no edema. No clubbing or cyanosis. Peripheral pulses intact and strong. TELEMETRY: Sinus rhythm overnight IMPRESSION: Elevated troponins secondary to acute sepsis and UTI, chronic kidney disease Cardiomyopathy with EF of 40-45% History of TAVR Hypertension Diabetes mellitus Hypothyroidism Anemia PLAN: Continue current medication regimen Maximize cardiomyopathy medications as tolerated No further recommendations from the cardiac standpoint I am dictating on behalf of Dr Kasi Rodríguez's history/physical and assessment/plan. Objective - Vital Signs Vital signs: Vital Signs Temp 97.6 F 08/24/22 08:42 Pulse 82 08/24/22 08:48 Resp 16 08/24/22 08:42 BP 118/59 08/24/22 08:42 Pulse Ox 93 L 08/24/22 08:42 FiO2 21 08/24/22 08:36 Intake & Output 08/23/22 08/24/22 08/24/22 18:59 06:59 18:59 Intake Total 354 476 Output Total 550 350 Balance -196 -350 476 Intake: Oral 354 476 Output: Urine 550 350 Other: Voiding Method Bedside Commode Bedside Commode Bedside Commode External Catheter External Catheter External Catheter # Voids 1 # Bowel Movements 1 - Labs CBC & Chem 7: 08/24/22 08:56 05/14/23 08:56 Labs: Abnormal Lab Results - Last 24 Hours (Table) 08/24/22 08/24/22 Range/Units 08:56 08:56 RBC 2.39 L (3.80-5.40) m/uL Hgb 7.2 L (11.4-16.0) gm/dL Hct 22.8 L (34.0-46.0) % RDW 16.9 H (11.5-15.5) % Sodium 133 L (137-145) mmol/L BUN 56 H (7-17) mg/dL Creatinine 2.75 H (0.52-1.04) mg/dL Glucose 112 H (74-99) mg/dL Calcium 8.2 L (8.4-10.2) mg/dL Microbiology - Last 24 Hours (Table) 08/19/22 14:15 Blood Culture - Preliminary Blood 08/19/22 14:30 Blood Culture - Preliminary Blood
[2022-08-24] MEDS: PREGABALIN 50 MG CAP PO SCH (20:21)
[2022-08-25] MEDS: HYDROcodone/APAP 7.5-325MG 1 EACH TAB PO PRN (04:15)
[2022-08-25] MEDS: PANTOPRAZOLE 40 MG TABLET PO SCH (06:15)
[2022-08-25] MEDS: LEVOTHYROXINE 88 MCG TAB PO SCH (06:15)
[2022-08-25] MEDS: carvediloL 3.125 MG TAB PO SCH (06:15)
[2022-08-25 08:03] LABS: Calcium 8.3 mg/dL (8.4-10.2); Potassium 3.9 mmol/L (3.5-5.1)
[2022-08-25 08:08] LABS: Anisocytosis Slight; Basophils # (A) 0.1 k/uL (0-0.2); Basophils % (A) 1 %; Eosinophils # (A) 0.4 k/uL (0-0.7); Eosinophils % (A) 6 %; HCT 23.8 % (34.0-46.0); HGB 7.2 gm/dL (11.4-16.0); Hypochromasia Slight; Lymphocytes # (A) 1.4 k/uL (1.0-4.8); Lymphocytes % (A) 22 %; MCH 29.1 pg (25.0-35.0); MCHC 30.3 g/dL (31.0-37.0); MCV 96.2 fL (80.0-100.0); Mean Platelet Volume 11.2; Monocytes # (A) 0.3 k/uL (0-1.0); Monocytes % (A) 5 %; Neutrophils % (A) 63 %; Platelet Count 192 k/uL (150-450); RBC 2.48 m/uL (3.80-5.40); RDW 16.9 % (11.5-15.5); WBC 6.4 k/uL (3.8-10.6)
[2022-08-25] MEDS: ALBUTEROL NEBULIZED 2.5 MG/3 ML INHALATION PRN ×2 (08:10→11:18)
[2022-08-25] MEDS: Mirabegron [Myrbetriq] 25 MG Tab.Er.24h PO SCH (08:11)
[2022-08-25 08:16] VITALS: BP 133/66; RESP 18; TEMP 98
[2022-08-25] MEDS: PREGABALIN 25 MG CAP PO SCH (08:17)
[2022-08-25] MEDS: FUROSEMIDE 40 MG TAB PO SCH (08:17)
[2022-08-25] MEDS: HEPARIN SODIUM,PORCINE/PF 5,000 UNIT/0.5 ML SYRINGE SQ SCH (08:17)
[2022-08-25] MEDS: ASPIRIN 81 MG PO SCH (08:17)
[2022-08-25] MEDS: TAMSULOSIN 0.4 MG CAP.ER.24H PO SCH (08:17)
[2022-08-25] MEDS: ATORVASTATIN 40 MG TAB PO SCH (08:17)
[2022-08-25 12:01] VITALS: BMI 33.3
--- NOTE | 2022-08-25 13:27 | P.DS ---
Providers Date of admission: 08/19/22 14:11 Expected date of discharge: 08/25/22 Attending physician: Fan Abdi MD Consults: 08/19/22 14:09 Consult Physician Urgent Consulting Provider: Kasi Rodríguez Consult Reason/Comments: cardiac eval, trop elevation Do you want consulting provider notified?: Yes Consult Physician Urgent Consulting Provider: Gil Rosales Consult Reason/Comments: post op care Do you want consulting provider notified?: Yes Primary care physician: Naeem Herr MD Hospital Course: Discharge Diagnosis: Severe sepsis secondary to urinary tract infection Recent ureteral stent placement Acute kidney injury, stable creatinine Acute systolic heart failure exacerbation Pulmonary vascular congestion, mild Type 2 NSTEMI Generalized weakness History of left bundle branch block History of hypertension Chronic constipation Anemia of chronic kidney disease Hypomagnesemia Acute hypoxic respiratory failure Hospital Course: 82-year-old female with a history of hypertension, hypothyroidism, recent urologic procedure presenting with generalized weakness. In the ED, initial temperature was 98.5, pulse 88, blood pressure 106/45, saturating at 95% on room air. Subsequently temperature did go up to 101.1, pulse 94. WBC 17.3, hemoglobin 8.9 (chronic), sodium 134, creatinine 2.28 (baseline 1.6), magnesium 1.5, troponin 0.329, UA positive for leukocyte esterase, negative nitrites, large blood. EKG personally interpreted shows sinus rhythm, left bundle branch block, not new. Renal ultrasound shows no hydronephrosis or nephrolithiasis, chest x-ray shows no acute process. Abdominal x-ray shows right ureteral stent. Patient admitted for generalized weakness, likely in the setting of sepsis. Urology and cardiology consulted. Urology thinks his perioperative infection. Continue antibiotics. Cardiology believed that elevated troponin less likely to be ACS. Echocardiogram showed LVEF 40-45%, RVSP 35. Was on IV Lasix, now s witched to oral. Respiratory function improved. Patient sees Dr. Duke and needs outpatient follow up. Patient seen and examined at bedside. Vital signs reviewed and stable. General: nontoxic, no distress, appears at stated age Derm: warm, dry Head: atraumatic, normocephalic, symmetric Eyes: EOMI, no lid lag, anicteric sclera Mouth: no lip lesion, mucus membranes moist Cardiovascular: S1S2 reg, no murmur Lungs: CTA bilateral, no rhonchi, no rales , no accessory muscle use Abdominal: soft, nontender to palpation, no guarding, no appreciable organomegaly Ext: no gross muscle atrophy, no edema, no contractures Neuro: CN II-XI grossly intact, no focal neuro deficits Psych: Alert, oriented, appropriate affect A total of 33 minutes of time were spent preparing this complex discharge summary. Patient was discharged on 08/25/22 at 13:12. Patient Condition at Discharge: Stable Plan - Discharge Summary Discharge Rx Participant: Yes New Discharge Prescriptions: New Furosemide [Lasix] 40 mg PO DAILY #60 tab Atorvastatin [Lipitor] 40 mg PO DAILY #60 tab carvediloL [Coreg] 3.125 mg PO BID-W/MEALS #60 tab Cefdinir [Omnicef] 300 mg PO Q12HR #2 capsule Continue Omeprazole 40 mg PO DAILY Pregabalin [Lyrica] 50 mg PO HS Aspirin EC [Ecotrin Low Dose] 81 mg PO DAILY Pregabalin [Lyrica] 25 mg PO DAILY Albuterol Inhaler [Ventolin Hfa Inhaler] 2 puff INHALATION RT-Q4H PRN PRN Reason: Shortness Of Breath Levothyroxine Sodium [Synthroid] 88 mcg PO DAILY Tamsulosin [Flomax] 0.4 mg PO DAILY Hyoscyamine Sulfate [Levsin] 0.125 mg PO TID PRN PRN Reason: Gi Upset Mirabegron [Myrbetriq] 25 mg PO DAILY Loratadine [Claritin] 10 mg PO DAILY PRN PRN Reason: Allergy Symptoms polyethylene glycoL 3350 [Miralax] 17 gm PO DAILY PRN PRN Reason: Constipation HYDROcodone/APAP 7.5-325MG [[place] 7.5-325] 1 tab PO Q6HR PRN #7 tab PRN Reason: Pain Discontinued amLODIPine [Norvasc] 5 mg PO DAILY Tolterodine ER [Detrol LA] 2 mg PO DAILY Discharge Medication List Albuterol Inhaler [Ventolin Hfa Inhaler] 2 puff INHALATION RT-Q4H PRN 06/19/21 [History] Levothyroxine Sodium [Synthroid] 88 mcg PO DAILY 06/19/21 [History] Omeprazole 40 mg PO DAILY 06/19/21 [History] Tamsulosin [Flomax] 0.4 mg PO DAILY 10/24/22 [History] Hyoscyamine Sulfate [Levsin] 0.125 mg PO TID PRN 07/08/22 [History] Aspirin EC [Ecotrin Low Dose] 81 mg PO DAILY 07/28/22 [History] Loratadine [Claritin] 10 mg PO DAILY PRN 07/28/22 [History] Mirabegron [Myrbetriq] 25 mg PO DAILY 07/28/22 [History] Pregabalin [Lyrica] 50 mg PO HS 07/28/22 [History] Pregabalin [Lyrica] 25 mg PO DAILY 08/19/22 [History] polyethylene glycoL 3350 [Miralax] 17 gm PO DAILY PRN 08/19/22 [History] Atorvastatin [Lipitor] 40 mg PO DAILY #60 tab 08/25/22 [Rx] Cefdinir [Omnicef] 300 mg PO Q12HR #2 capsule 08/25/22 [Rx] Furosemide [Lasix] 40 mg PO DAILY #60 tab 08/25/22 [Rx] HYDROcodone/APAP 7.5-325MG [[place] 7.5-325] 1 tab PO Q6HR PRN #7 tab 08/25/22 [Rx] carvediloL [Coreg] 3.125 mg PO BID-W/MEALS #60 tab 08/25/22 [Rx] Follow up Appointment(s)/Referral(s): Naeem Herr MD [Primary Care Provider] - 1-2 days Zack Duke DO [STAFF PHYSICIAN] - 1 Week Philippe Peterson MD [STAFF PHYSICIAN] - 1 Week Patient Instructions/Handouts: Heart Failure (DC), Sepsis (DC) Activity/Diet/Wound Care/Special Instructions: Please urology and PCP. Discharge Disposition: TRANSFER TO SNF/ECF
[2022-08-25 14:05] VITALS: PULSE 71
--- NOTE | 2022-08-27 14:53 | CDI ---
Documentation Clarification Form Date: 08/27/2022 2:28:38 PM From: Yokasta Mujica Admit Date: 08/19/2022 2:11:00 PM Patient Name: Nerissa Lr Visit Number: [id number] Discharge Date: 08/25/2022 2:50:00 PM ATTENTION: The Clinical Documentation Specialists (CDI) and [facility] Coding Staff appreciate your assistance in clarifying documentation. Please respond to the clarification below the line at the bottom and electronically sign. The CDI & [facility] Coding staff will review the response and follow-up if needed. Please note: Queries are made part of the Legal Health Record. If you have any questions, please contact the author of this message via ITS. Dr. Fan Abdi Patient had recent ureteral stent placement. Per Urology consult "I suspect this patient has had a perioperative infection despite antibiotics." On the day before admit a stent exchange and right ureteroscopy. Please clarify if sepsis is related to the procedure and/or stent. Additional clarification is requested. History/Risk Factors: Recent stent exchange and ureteroscopy. Clinical Indicators: UTI and sepsis Treatment: Augusto Can you please clarify if patient's UTI/Sepsis was a postoperative infection: [ ] Sepsis/UTI due to ureteral stent [ ] Postoperative sepsis/UTI [ x ] Sepsis / UTI not postoperative or due to stent [ ] Other, please specify [ ] Unable to determine MTDD
== END 2022-08-25 14:50 | DRG 871 ==
LOC: EC 10:22 → 3SCARD 14:11
PROVIDERS: ADMIT Student in an Organized Health Care Education/Training Program; ATTEND Student in an Organized Health Care Education/Training Program
DX: A41.9 Sepsis, unspecified organism (principal); I21.A1 Myocardial infarction type 2; I50.23 Acute on chronic systolic (congestive) heart failure; J96.01 Acute respiratory failure with hypoxia; I13.0 Hypertensive heart and chronic kidney disease with heart failure and stage 1 through stage 4 chronic kidney disease, or unspecified chronic kidney disease; I42.9 Cardiomyopathy, unspecified; N13.30 Unspecified hydronephrosis; N17.9 Acute kidney failure, unspecified; R65.20 Severe sepsis without septic shock; N30.11 Interstitial cystitis (chronic) with hematuria; D63.1 Anemia in chronic kidney disease; E03.9 Hypothyroidism, unspecified; E11.22 Type 2 diabetes mellitus with diabetic chronic kidney disease; E83.42 Hypomagnesemia; Z66 Do not resuscitate; G89.29 Other chronic pain; Z96.0 Presence of urogenital implants; I44.7 Left bundle-branch block, unspecified; K59.09 Other constipation; Z95.2 Presence of prosthetic heart valve; M79.7 Fibromyalgia; N18.9 Chronic kidney disease, unspecified; Z79.82 Long term (current) use of aspirin; Z79.890 Hormone replacement therapy; Z79.899 Other long term (current) drug therapy; Z88.1 Allergy status to other antibiotic agents; Z88.5 Allergy status to narcotic agent; Z88.0 Allergy status to penicillin; Z88.2 Allergy status to sulfonamides
CPT/HCPCS: 36415; 71045; 71046; 74018; 76770; 80048; 80053; 81001; 83605; 83735; 84100; 84484; 85025; 85610; 85730; 87086; 87635; 93005; 93306; 94640; 94760; 96361; 96365; 99285

== ENCOUNTER 2022-09-08 19:26 | Inpatient (IN) | payer MEDICARE, BC ==
[2022-09-08 21:01] LABS: Anisocytosis Slight; Basophils % (A) 1 %; Eosinophils # (A) 0.2 k/uL (0-0.7); Eosinophils % (A) 2 %; HCT 20.1 % (34.0-46.0); Hypochromasia Slight; Lymphocytes # (A) 1.4 k/uL (1.0-4.8); Lymphocytes % (A) 19 %; MCH 29.8 pg (25.0-35.0); MCHC 31.3 g/dL (31.0-37.0); MCV 95.2 fL (80.0-100.0); Mean Platelet Volume 11.6; Monocytes # (A) 0.3 k/uL (0-1.0); Monocytes % (A) 4 %; Neutrophils # (A) 5.3 k/uL (1.3-7.7); Neutrophils % (A) 72 %; Platelet Count 178 k/uL (150-450); RBC 2.11 m/uL (3.80-5.40); RDW 16.9 % (11.5-15.5); WBC 7.4 k/uL (3.8-10.6)
[2022-09-08 21:10] LABS: INR 1.1 (<1.2); Partial Thromboplastin Time 26.6 sec (22.0-30.0); Prothrombin Time 11.1 sec (9.0-12.0)
[2022-09-08 21:11] LABS: HGB 6.3 gm/dL (11.4-16.0)
--- NOTE | 2022-09-08 21:27 | ED ---
General Adult HPI - General Chief complaint: Weakness Stated complaint: WEAKNESS Time Seen by Provider: 09/08/22 19:35 Source: patient, family Mode of arrival: wheelchair Limitations: no limitations - History of Present Illness Initial comments: 82-year-old female with past medical history of diabetes, hypertension, chronic renal disease who presents to emergency department with generalized weakness and chills for the past day. She was recently just discharged from rehab. She was hospitalized for congestive heart failure, acute kidney failure and anemia. Denies chest pain or shortness of breath. No fevers chills or cough. Denies any abdominal pain. Reports to constipation. No black or bloody stools. States that while she has been in rehab they have not been providing her with her arnesp injection. Reports a history of anemia with previous blood transfusions. No other alleviating, precipitating or modifying factors - Related Data Home Medications Medication Instructions Recorded Confirmed Albuterol Inhaler [Ventolin Hfa 2 puff INHALATION RT-Q4H PRN 06/19/21 09/08/22 Inhaler] Levothyroxine Sodium [Synthroid] 88 mcg PO DAILY 06/19/21 09/08/22 Omeprazole 40 mg PO DAILY 06/19/21 09/08/22 Tamsulosin [Flomax] 0.4 mg PO DAILY 02/03/22 09/08/22 Hyoscyamine Sulfate [Levsin] 0.125 mg PO TID PRN 07/08/22 09/08/22 Aspirin EC [Ecotrin Low Dose] 81 mg PO DAILY 07/28/22 09/08/22 Loratadine [Claritin] 10 mg PO DAILY PRN 07/28/22 09/08/22 Mirabegron [Myrbetriq] 25 mg PO DAILY 07/28/22 09/08/22 polyethylene glycoL 3350 [Miralax] 17 gm PO DAILY 08/19/22 09/08/22 Atorvastatin [Lipitor] 40 mg PO HS 09/08/22 09/08/22 polyethylene glycoL 3350 [Miralax] 17 gm PO DAILY PRN 09/08/22 09/08/22 Previous Rx's Medication Instructions Recorded HYDROcodone/APAP 7.5-325MG [[place] 1 tab PO Q6HR PRN #7 tab 08/25/22 7.5-325] Pregabalin [Lyrica] 25 mg PO DAILY #3 cap 08/25/22 Pregabalin [Lyrica] 50 mg PO HS #3 cap 08/25/22 carvediloL [Coreg] 3.125 mg PO BID-W/MEALS #60 tab 08/25/22 Ferrous Sulfate [Iron (65 MG 325 mg PO DAILY 30 Days #30 tab 09/11/22 Elemental)] Sodium Bicarbonate Tab 650 mg PO BID 30 Days #60 tab 09/11/22 Allergies Allergy/AdvReac Type Severity Reaction Status Date / Time Penicillins Allergy Swelling Verified 09/08/22 22:07 Sulfa (Sulfonamide Allergy Unknown Verified 09/08/22 22:07 Antibiotics) clindamycin AdvReac Nausea & Verified 09/08/22 22:07 Vomiting morphine AdvReac Nausea & Verified 09/08/22 22:07 Vomiting Review of Systems ROS Statement: Those systems with pertinent positive or pertinent negative responses have been documented in the HPI. ROS Other: All systems not noted in ROS Statement are negative. Past Medical History Past Medical History: Diabetes Mellitus, Hypertension, Renal Disease Additional Past Medical History / Comment(s): Type2, hypothyroidism, chronic back/neck pain, fibromyalgia History of Any Multi-Drug Resistant Organisms: None Reported Past Surgical History: Unable to Obtain Additional Past Surgical History / Comment(s): neck surgery, c-spine surgery, heart valve replacement, uerter stent placement 08/18/2022 Past Anesthesia/Blood Transfusion Reactions: No Reported Reaction Past Psychological History: No Psychological Hx Reported Smoking Status: Never smoker Past Alcohol Use History: None Reported Past Drug Use History: None Reported - Past Family History Family Family Medical History: No Reported History General Exam Limitations: no limitations General appearance: alert, in no apparent distress Head exam: Present: atraumatic, normocephalic, normal inspection Eye exam: Present: normal appearance, PERRL, EOMI. Absent: scleral icterus, conjunctival injection, periorbital swelling ENT exam: Present: normal exam, mucous membranes moist Neck exam: Present: normal inspection. Absent: tenderness, meningismus, lymphadenopathy Respiratory exam: Present: normal lung sounds bilaterally. Absent: respiratory distress, wheezes, rales, rhonchi, stridor Cardiovascular Exam: Present: regular rate, normal rhythm, normal heart sounds. Absent: systolic murmur, diastolic murmur, rubs, gallop, clicks GI/Abdominal exam: Present: soft, normal bowel sounds. Absent: distended, ten derness, guarding, rebound, rigid Rectal exam: Present: heme (-) stool. Absent: black stool, bloody stool Extremities exam: Present: normal inspection, full ROM, normal capillary refill. Absent: tenderness, pedal edema, joint swelling, calf tenderness Back exam: Present: normal inspection Neurological exam: Present: alert, oriented X3, CN II-XII intact Psychiatric exam: Present: normal affect, normal mood Skin exam: Present: warm, dry, intact, normal color. Absent: rash Course Vital Signs 09/08/22 09/08/22 09/08/22 19:31 19:48 19:50 Temperature 98.1 F Pulse Rate 77 73 73 Respiratory 20 15 17 Rate Blood Pressure 108/53 115/39 O2 Sat by Pulse 99 99 98 Oximetry 09/08/22 09/08/22 09/08/22 20:00 20:10 20:20 Temperature Pulse Rate 72 77 80 Respiratory 19 17 Rate Blood Pressure 115/44 O2 Sat by Pulse 97 95 Oximetry 09/08/22 09/08/22 09/08/22 20:30 20:40 20:50 Temperature Pulse Rate 79 81 79 Respiratory 17 20 19 Rate Blood Pressure 125/51 O2 Sat by Pulse 94 L 92 L 97 Oximetry 09/08/22 09/08/22 09/08/22 21:00 21:10 21:20 Temperature Pulse Rate 82 84 81 Respiratory 22 17 10 L Rate Blood Pressure 109/39 O2 Sat by Pulse 92 L 91 L 95 Oximetry 09/08/22 09/08/22 09/08/22 21:30 21:40 21:50 Temperature Pulse Rate 80 81 80 Respiratory 15 20 29 H Rate Blood Pressure 110/47 O2 Sat by Pulse 93 L 93 L 94 L Oximetry 09/08/22 09/08/22 09/09/22 22:00 22:10 00:22 Temperature 98.4 F Pulse Rate 82 81 91 Respiratory 17 17 18 Rate Blood Pressure 139/55 138/52 O2 Sat by Pulse 95 96 Oximetry 09/09/22 09/09/22 09/09/22 00:27 00:47 02:51 Temperature 97.9 F 98.3 F Pulse Rate 90 92 94 Respiratory 18 18 20 Rate Blood Pressure 135/58 137/62 136/60 O2 Sat by Pulse 96 93 L 92 L Oximetry Medical Decision Making - Medical Decision Making Was pt. sent in by a medical professional or institution (UNIQUE Guy, TRAFFIC RATE ANALYST, urgent care, hospital, or snf...) When possible be specific @ -No Did you speak to anyone other than the patient for history (EMS, parent, family, police, friend...)? What history was obtained from this source @ -No Did you review nursing and triage notes (agree or disagree)? Why? @ -I reviewed and agree with nursing and triage notes Were old charts reviewed (outside hosp., previous admission, EMS record, old EKG, old radiological studies, urgent care reports/EKG's, snf records)? Report findings @ -old charts were reviewed - endoscopy from June 2021 was reviewed Differential Diagnosis (chest pain, altered mental status, abdominal pain women, abdominal pain men, vaginal bleeding, weakness, fever, dyspnea, syncope, headache, dizziness, GI bleed, back pain, seizure, CVA, palpatations, mental health, musculoskeletal)? @ -Differential Weakness: Hypoglycemia, shock, sepsis, hyponatremia, anemia, infection, HI, ETOH, adverse medicine reaction, overdose, stroke, this is not meant to be an all-inclusive list. EKG interpreted by me (3pts min.). @ -EKG interpreted by me demonstrates sinus rhythm with a rate of 74. OR interval 197. QRS 165. QTC of 455. Left bundle branch block. No ST segment elevation positive for sgarbossa criteria X-rays interpreted by me (1pt min.). @ -None done CT interpreted by me (1pt min.). @ -None done U/S interpreted by me (1pt. min.). @ -None done What testing was considered but not performed or refused? (CT, X-rays, U/S, labs)? Why? @ -None What meds were considered but not given or refused? Why? @ -None Did you discuss the management of the patient with other professionals (professionals i.e. UNIQUE Guy, TRAFFIC RATE ANALYST, lab, RT, psych nurse, administrator social welfare, aemt, teacher, fire information officer, medical case manager)? Give summary @ -I spoke with Dr. Sewell who agreed to admit the patient Was smoking cessation discussed for >3mins.? @ -No Was critical care preformed (if so, how long)? @ -Yes, 35 minutes for transfusion of blood products Were there social determinants of health that impacted care today? How? (Homelessness, low income, unemployed, alcoholism, drug addiction, transportation, low edu. Level, literacy, decrease access to med. care, detention, rehab)? @ -No Was there de-escalation of care discussed even if they declined (Discuss DNR or withdrawal of care, Hospice)? DNR status @ -No What co-morbidities impacted this encounter? (DM, HTN, Smoking, COPD, CAD, Cancer, CVA, ARF, Chemo, Hep., AIDS, mental health diagnosis, sleep apnea, morbid obesity)? @ -Iron deficiency anemia, chronic kidney disease, gastritis Was patient admitted / discharged? Hospital course, mention meds given and route, prescriptions, significant lab abnormalities, going to OR and other pertinent info. @ -Upon arrival patient is placed into room 7. A thorough history and physical exam was performed. IV is established and laboratories is her conducted. Hemoglobin is 6.3. Occult is negative. Patient will be transfused blood and labs will be rechecked. Spoke with Dr. Sewell who agreed to admit the patient Undiagnosed new problem with uncertain prognosis? @ -No Drug Therapy requiring intensive monitoring for toxicity (Heparin, Nitro, Insulin, Cardizem)? @ -Yes, blood products Were any procedures done? @ -No Diagnosis/symptom? @ -Acute generalized weakness, acute on chronic anemia, chronic kidney disease Uncomplicated (without systemic symptoms) or Complicated (systemic symptoms)? @ -Complicated Side effects of treatment? @ -Volume overload Exacerbation, Progression, or Severe Exacerbation? @ -No Poses a threat to life or bodily function? How? (Chest pain, [place], HI, pneumonia, PE, COPD, DKA, ARF, appy, cholecystitis, CVA, Diverticulitis, Homicidal, Suicidal, threat to staff... and all critical care pts) @ -Yes, significant anemia could be due to cardiac arrest - Lab Data Result diagrams: 09/11/22 07:03 09/11/22 07:03 Lab Results 09/08/22 09/08/22 09/08/22 Range/Units 20:27 20:27 20:27 WBC 7.4 (3.8-10.6) k/uL RBC 2.11 L (3.80-5.40) m/uL Hgb 6.3 L* (11.4-16.0) gm/dL Hct 20.1 L (34.0-46.0) % MCV 95.2 (80.0-100.0) fL MCH 29.8 (25.0-35.0) pg MCHC 31.3 (31.0-37.0) g/dL RDW 16.9 H (11.5-15.5) % Plt Count 178 (150-450) k/uL MPV 11.6 Neutrophils % 72 % Lymphocytes % 19 % Monocytes % 4 % Eosinophils % 2 % Basophils % 1 % Neutrophils # 5.3 (1.3-7.7) k/uL Lymphocytes # 1.4 (1.0-4.8) k/uL Monocytes # 0.3 (0-1.0) k/uL Eosinophils # 0.2 (0-0.7) k/uL Basophils # 0.0 (0-0.2) k/uL Hypochromasia Slight Anisocytosis Slight PT 11.1 (9.0-12.0) sec INR 1.1 (<1.2) APTT 26.6 (22.0-30.0) sec Sodium 136 L (137-145) mmol/L Potassium 5.0 (3.5-5.1) mmol/L Chloride 106 (98-107) mmol/L Carbon Dioxide 20 L (22-30) mmol/L Anion Gap 10 mmol/L BUN 60 H (7-17) mg/dL Creatinine 3.02 H (0.52-1.04) mg/dL Est GFR (CKD-EPI)AfAm 16 (>60 ml/min/1.73 sqM) Est GFR (CKD-EPI)NonAf 14 (>60 ml/min/1.73 sqM) Glucose 120 H (74-99) mg/dL Plasma Lactic Acid Rolly (0.7-2.0) mmol/L Calcium 8.3 L (8.4-10.2) mg/dL Magnesium 1.8 (1.6-2.3) mg/dL Total Bilirubin 0.5 (0.2-1.3) mg/dL AST 24 (14-36) U/L ALT 15 (4-34) U/L Alkaline Phosphatase 115 (38-126) U/L Troponin I (0.000-0.034) ng/mL NT-Pro-B Natriuret Pep pg/mL Total Protein 7.0 (6.3-8.2) g/dL Albumin 3.3 L (3.5-5.0) g/dL Urine Color Urine Appearance (Clear) Urine pH (5.0-8.0) Ur Specific Loop (1.001-1.035) Urine Protein (Negative) Urine Glucose (UA) (Negative) Urine Ketones (Negative) Urine Blood (Negative) Urine Nitrite (Negative) Urine Bilirubin (Negative) Urine Urobilinogen (<2.0) mg/dL Ur Leukocyte Esterase (Negative) Urine RBC (0-5) /hpf Urine WBC (0-5) /hpf Urine WBC Clumps (None) /hpf Ur Squamous Epith Cells (0-4) /hpf Urine Bacteria (None) /hpf Stool Occult Blood (Negative) Influenza Type A (PCR) (Not Detectd) Influenza Type B (PCR) (Not Detectd) RSV (PCR) (Not Detectd) SARS-CoV-2 (PCR) (Not Detectd) Blood Type Blood Type Recheck Bld Type Recheck Status Antibody Screen Crossmatch Spec Expiration Date 09/08/22 09/08/22 09/08/22 Range/Units 20:27 20:27 20:27 WBC (3.8-10.6) k/uL RBC (3.80-5.40) m/uL Hgb (11.4-16.0) gm/dL Hct (34.0-46.0) % MCV (80.0-100.0) fL MCH (25.0-35.0) pg MCHC (31.0-37.0) g/dL RDW (11.5-15.5) % Plt Count (150-450) k/uL MPV Neutrophils % % Lymphocytes % % Monocytes % % Eosinophils % % Basophils % % Neutrophils # (1.3-7.7) k/uL Lymphocytes # (1.0-4.8) k/uL Monocytes # (0-1.0) k/uL Eosinophils # (0-0.7) k/uL Basophils # (0-0.2) k/uL Hypochromasia Anisocytosis PT (9.0-12.0) sec INR (<1.2) APTT (22.0-30.0) sec Sodium (137-145) mmol/L Potassium (3.5-5.1) mmol/L Chloride (98-107) mmol/L Carbon Dioxide (22-30) mmol/L Anion Gap mmol/L BUN (7-17) mg/dL Creatinine (0.52-1.04) mg/dL Est GFR (CKD-EPI)AfAm (>60 ml/min/1.73 sqM) Est GFR (CKD-EPI)NonAf (>60 ml/min/1.73 sqM) Glucose (74-99) mg/dL Plasma Lactic Acid Rolly 1.2 (0.7-2.0) mmol/L Calcium (8.4-10.2) mg/dL Magnesium (1.6-2.3) mg/dL Total Bilirubin (0.2-1.3) mg/dL AST (14-36) U/L ALT (4-34) U/L Alkaline Phosphatase (38-126) U/L Troponin I <0.012 (0.000-0.034) ng/mL NT-Pro-B Natriuret Pep 3580 pg/mL Total Protein (6.3-8.2) g/dL Albumin (3.5-5.0) g/dL Urine Color Urine Appearance (Clear) Urine pH (5.0-8.0) Ur Specific Loop (1.001-1.035) Urine Protein (Negative) Urine Glucose (UA) (Negative) Urine Ketones (Negative) Urine Blood (Negative) Urine Nitrite (Negative) Urine Bilirubin (Negative) Urine Urobilinogen (<2.0) mg/dL Ur Leukocyte Esterase (Negative) Urine RBC (0-5) /hpf Urine WBC (0-5) /hpf Urine WBC Clumps (None) /hpf Ur Squamous Epith Cells (0-4) /hpf Urine Bacteria (None) /hpf Stool Occult Blood (Negative) Influenza Type A (PCR) (Not Detectd) Influenza Type B (PCR) (Not Detectd) RSV (PCR) (Not Detectd) SARS-CoV-2 (PCR) (Not Detectd) Blood Type Blood Type Recheck Bld Type Recheck Status Antibody Screen Crossmatch Spec Expiration Date 09/08/22 09/08/22 09/08/22 Range/Units 20:27 21:40 22:07 WBC (3.8-10.6) k/uL RBC (3.80-5.40) m/uL Hgb (11.4-16.0) gm/dL Hct (34.0-46.0) % MCV (80.0-100.0) fL MCH (25.0-35.0) pg MCHC (31.0-37.0) g/dL RDW (11.5-15.5) % Plt Count (150-450) k/uL MPV Neutrophils % % Lymphocytes % % Monocytes % % Eosinophils % % Basophils % % Neutrophils # (1.3-7.7) k/uL Lymphocytes # (1.0-4.8) k/uL Monocytes # (0-1.0) k/uL Eosinophils # (0-0.7) k/uL Basophils # (0-0.2) k/uL Hypochromasia Anisocytosis PT (9.0-12.0) sec INR (<1.2) APTT (22.0-30.0) sec Sodium (137-145) mmol/L Potassium (3.5-5.1) mmol/L Chloride (98-107) mmol/L Carbon Dioxide (22-30) mmol/L Anion Gap mmol/L BUN (7-17) mg/dL Creatinine (0.52-1.04) mg/dL Est GFR (CKD-EPI)AfAm (>60 ml/min/1.73 sqM) Est GFR (CKD-EPI)NonAf (>60 ml/min/1.73 sqM) Glucose (74-99) mg/dL Plasma Lactic Acid Rolly (0.7-2.0) mmol/L Calcium (8.4-10.2) mg/dL Magnesium (1.6-2.3) mg/dL Total Bilirubin (0.2-1.3) mg/dL AST (14-36) U/L ALT (4-34) U/L Alkaline Phosphatase (38-126) U/L Troponin I (0.000-0.034) ng/mL NT-Pro-B Natriuret Pep pg/mL Total Protein (6.3-8.2) g/dL Albumin (3.5-5.0) g/dL Urine Color Yellow Urine Appearance Cloudy H (Clear) Urine pH 6.0 (5.0-8.0) Ur Specific Loop 1.015 (1.001-1.035) Urine Protein 2+ H (Negative) Urine Glucose (UA) Negative (Negative) Urine Ketones Negative (Negative) Urine Blood Small H (Negative) Urine Nitrite Negative (Negative) Urine Bilirubin Negative (Negative) Urine Urobilinogen <2.0 (<2.0) mg/dL Ur Leukocyte Esterase Large H (Negative) Urine RBC 21 H (0-5) /hpf Urine WBC >182 H (0-5) /hpf Urine WBC Clumps Moderate H (None) /hpf Ur Squamous Epith Cells 1 (0-4) /hpf Urine Bacteria Rare H (None) /hpf Stool Occult Blood (Negative) Influenza Type A (PCR) Not Detected (Not Detectd) Influenza Type B (PCR) Not Detected (Not Detectd) RSV (PCR) Not Detected (Not Detectd) SARS-CoV-2 (PCR) Not Detected (Not Detectd) Blood Type O Negative Blood Type Recheck O Neg Bld Type Recheck Status No Antibody Screen NEGATIVE Crossmatch See Detail Spec Expiration Date 09/11/2022 - 233909/08/22 Range/Units 23:02 WBC (3.8-10.6) k/uL RBC (3.80-5.40) m/uL Hgb (11.4-16.0) gm/dL Hct (34.0-46.0) % MCV (80.0-100.0) fL MCH (25.0-35.0) pg MCHC (31.0-37.0) g/dL RDW (11.5-15.5) % Plt Count (150-450) k/uL MPV Neutrophils % % Lymphocytes % % Monocytes % % Eosinophils % % Basophils % % Neutrophils # (1.3-7.7) k/uL Lymphocytes # (1.0-4.8) k/uL Monocytes # (0-1.0) k/uL Eosinophils # (0-0.7) k/uL Basophils # (0-0.2) k/uL Hypochromasia Anisocytosis PT (9.0-12.0) sec INR (<1.2) APTT (22.0-30.0) sec Sodium (137-145) mmol/L Potassium (3.5-5.1) mmol/L Chloride (98-107) mmol/L Carbon Dioxide (22-30) mmol/L Anion Gap mmol/L BUN (7-17) mg/dL Creatinine (0.52-1.04) mg/dL Est GFR (CKD-EPI)AfAm (>60 ml/min/1.73 sqM) Est GFR (CKD-EPI)NonAf (>60 ml/min/1.73 sqM) Glucose (74-99) mg/dL Plasma Lactic Acid Rolly (0.7-2.0) mmol/L Calcium (8.4-10.2) mg/dL Magnesium (1.6-2.3) mg/dL Total Bilirubin (0.2-1.3) mg/dL AST (14-36) U/L ALT (4-34) U/L Alkaline Phosphatase (38-126) U/L Troponin I (0.000-0.034) ng/mL NT-Pro-B Natriuret Pep pg/mL Total Protein (6.3-8.2) g/dL Albumin (3.5-5.0) g/dL Urine Color Urine Appearance (Clear) Urine pH (5.0-8.0) Ur Specific Loop (1.001-1.035) Urine Protein (Negative) Urine Glucose (UA) (Negative) Urine Ketones (Negative) Urine Blood (Negative) Urine Nitrite (Negative) Urine Bilirubin (Negative) Urine Urobilinogen (<2.0) mg/dL Ur Leukocyte Esterase (Negative) Urine RBC (0-5) /hpf Urine WBC (0-5) /hpf Urine WBC Clumps (None) /hpf Ur Squamous Epith Cells (0-4) /hpf Urine Bacteria (None) /hpf Stool Occult Blood Negative (Negative) Influenza Type A (PCR) (Not Detectd) Influenza Type B (PCR) (Not Detectd) RSV (PCR) (Not Detectd) SARS-CoV-2 (PCR) (Not Detectd) Blood Type Blood Type Recheck Bld Type Recheck Status Antibody Screen Crossmatch Spec Expiration Date Disposition Clinical Impression: Anemia Disposition: ADMITTED IP TO THIS HOSP Condition: Stable Is patient prescribed a controlled substance at d/c from ED?: No Time of Disposition: 23:27 Decision to Admit Reason: Admit from EC Decision Date: 09/08/22 Decision Time: 23:27
[2022-09-08 21:50] LABS: Albumin 3.3 g/dL (3.5-5.0); Calcium 8.3 mg/dL (8.4-10.2); Magnesium 1.8 mg/dL (1.6-2.3); Total Bilirubin 0.5 mg/dL (0.2-1.3)
[2022-09-08 22:25] LABS: Appearance,Urine Cloudy (Clear); Bacteria,Urine Rare /hpf; Bilirubin,Urine Negative (Negative); Blood,Urine Small (Negative); Color,Urine Yellow; Glucose,Urine (UA) Negative (Negative); Ketones,Urine Negative (Negative); Leukocyte Esterase,Urine Large (Negative); Nitrite,Urine Negative (Negative); Protein,Urine 2+ (Negative); RBC,Urine 21 /hpf (0-5); Specific Gravity,Urine 1.015 (1.001-1.035); Squamous Epithelial Cell,Urine 1 /hpf (0-4); Urobilinogen,Urine <2.0 mg/dL (<2.0); WBC,Urine >182 /hpf (0-5)
[2022-09-08] MEDS ORDERED: NALOXONE 0.4 MG/ML 1 ML VIAL IV PRN (23:27)
[2022-09-08] MEDS ORDERED: ALBUTEROL NEBULIZED 2.5 MG/3 ML INHALATION PRN (23:50)
[2022-09-08] MEDS ORDERED: LORATADINE 10 MG TAB PO PRN (23:50)
[2022-09-08] MEDS ORDERED: HYOSCYAMINE SULFATE 0.125 MG TAB PO PRN (23:50)
[2022-09-09] MEDS: HYDROcodone/APAP 7.5-325MG 1 EACH TAB PO PRN ×3 (00:09→22:02)
[2022-09-09] MEDS: polyethylene glycoL 3350 17 GM POWD.PACK PO SCH ×3 (00:10→13:14)
[2022-09-09] MEDS: ATORVASTATIN 40 MG TAB PO SCH ×2 (00:10→21:01)
[2022-09-09] MEDS ORDERED: DEXTROSE 50% SYRINGE 50 ML IVP PRN ×2 (02:58)
--- NOTE | 2022-09-09 03:11 | P.HPIM ---
History of Present Illness H&P Date: 09/09/22 Chief Complaint: generalized weakness 82 year old female with hypertension , CKD IV, DM diet controlled patient was recently seen and hospitalized for acute systolic CHF exacerbation with LVEF 40%, UTI s/p uretral stents. she was discharged to rehab. however, 1 day after going home from rehab she started experiencing generalized weakness and was unable to take care of herself, she lives alone, denies any falls, she uses a walker to ambulate. she was found to have worsening chronic anemia in the ED, she claims she was not receiving her aranesp shots while in rehab. she denies fever, chills, denies GI bleeding , denies chest pain or trouble breathing. denies smoking, denies urinary changes . she had a uretral stent about 3 weeks ago Review of Systems Pertinent positives as noted in HPI. All other systems were reviewed and are n egative Past Medical History Past Medical History: Diabetes Mellitus, Hypertension, Renal Disease Additional Past Medical History / Comment(s): Type2, hypothyroidism, chronic back/neck pain, fibromyalgia History of Any Multi-Drug Resistant Organisms: None Reported Past Surgical History: Unable to Obtain Additional Past Surgical History / Comment(s): neck surgery, c-spine surgery, heart valve replacement, uerter stent placement 08/18/2022 Past Anesthesia/Blood Transfusion Reactions: No Reported Reaction Past Psychological History: No Psychological Hx Reported Smoking Status: Never smoker Past Alcohol Use History: None Reported Past Drug Use History: None Reported - Past Family History Family Family Medical History: No Reported History Medications and Allergies Home Medications Medication Instructions Recorded Confirmed Type Albuterol Inhaler [Ventolin Hfa 2 puff INHALATION RT-Q4H PRN 06/19/21 09/08/22 History Inhaler] Levothyroxine Sodium [Synthroid] 88 mcg PO DAILY 06/19/21 09/08/22 History Omeprazole 40 mg PO DAILY 06/19/21 09/08/22 History Tamsulosin [Flomax] 0.4 mg PO DAILY 02/03/22 09/08/22 History Hyoscyamine Sulfate [Levsin] 0.125 mg PO TID PRN 07/08/22 09/08/22 History Aspirin EC [Ecotrin Low Dose] 81 mg PO DAILY 07/28/22 09/08/22 History Loratadine [Claritin] 10 mg PO DAILY PRN 07/28/22 09/08/22 History Mirabegron [Myrbetriq] 25 mg PO DAILY 07/28/22 09/08/22 History polyethylene glycoL 3350 [Miralax] 17 gm PO DAILY 08/19/22 09/08/22 History HYDROcodone/APAP 7.5-325MG [[place] 1 tab PO Q6HR PRN #7 tab 08/25/22 09/08/22 Rx 7.5-325] Pregabalin [Lyrica] 25 mg PO DAILY #3 cap 08/25/22 09/08/22 Rx Pregabalin [Lyrica] 50 mg PO HS #3 cap 08/25/22 09/08/22 Rx carvediloL [Coreg] 3.125 mg PO BID-W/MEALS #60 tab 08/25/22 09/08/22 Rx Atorvastatin [Lipitor] 40 mg PO HS 09/08/22 09/08/22 History Loperamide [Imodium] 2 mg PO QID PRN 09/08/22 09/08/22 History polyethylene glycoL 3350 [Miralax] 17 gm PO DAILY PRN 09/08/22 09/08/22 History Allergies Allergy/AdvReac Type Severity Reaction Status Date / Time Penicillins Allergy Swelling Verified 09/08/22 22:07 Sulfa (Sulfonamide Allergy Unknown Verified 09/08/22 22:07 Antibiotics) clindamycin AdvReac Nausea & Verified 09/08/22 22:07 Vomiting morphine AdvReac Nausea & Verified 09/08/22 22:07 Vomiting Physical Exam Vitals: Vital Signs Temp Pulse Resp BP Pulse Ox 09/09/22 02:51 94 20 136/60 92 L 09/09/22 00:47 98.3 F 92 18 137/62 93 L 09/09/22 00:27 97.9 F 90 18 135/58 96 09/09/22 00:22 98.4 F 91 18 138/52 96 09/08/22 22:10 81 17 139/55 95 09/08/22 22:00 82 17 09/08/22 21:50 80 29 H 94 L 09/08/22 21:40 81 20 110/47 93 L 09/08/22 21:30 80 15 93 L 09/08/22 21:20 81 10 L 95 09/08/22 21:10 84 17 109/39 91 L 09/08/22 21:00 82 22 92 L 09/08/22 20:50 79 19 97 09/08/22 20:40 81 20 125/51 92 L 09/08/22 20:30 79 17 94 L 09/08/22 20:20 80 17 09/08/22 20:10 77 115/44 95 09/08/22 20:00 72 19 97 09/08/22 19:50 73 17 115/39 98 09/08/22 19:48 73 15 99 09/08/22 19:31 98.1 F 77 20 108/53 99 Intake and Output 09/08/22 09/08/22 09/09/22 14:59 22:59 06:59 Intake Total 0 Balance 0 Intake: Blood Product 0 Unit 0 Other: Weight 79.832 kg Constitutional: No acute distress, conversant, pleasant Eyes: Anicteric sclerae, moist conjunctiva, Pupils equal round reactive to light ENMT: NC/AT Oropharynx clear, no erythema, or exudates Neck: Supple, no masses, or JVD No carotid bruits No thyromegaly Lungs: Clear to auscultation Clear to percussion Normal respiratory effort, no accessory muscle use Cardiovascular: Heart regular in rate and rhythm, systolic murmurs, no gallops, or rubs +1 bilateral peripheral edema Abdominal: Soft Nontender, no guarding, rebound or rigidity Abdomen moving with respiration Normoactive bowel sounds No hepatomegaly, No splenomegaly No palpable mass No abdominal wall hernia noted Skin: Normal temperature, tone, texture, turgor Extremities: No digital cyanosis No clubbing Pedal pulses intact and symmetrical Radial pulses intact and symmetrical No calf tenderness Psychiatric: Alert and oriented to person, place Neuro Muscles Strength 4/5 in all 4 extremities Sensation to light touch grossly present throughout Cranial nerves II-XII grossly intact Lymphatics: no palpable cervical or supraclavicular lymph nodes Results CBC & Chem 7: 09/08/22 20:27 09/08/22 20:27 Labs: Abnormal Lab Results - Last 24 Hours (Table) 09/08/22 09/08/22 09/08/22 Range/Units 20:27 20:27 21:40 RBC 2.11 L (3.80-5.40) m/uL Hgb 6.3 L* (11.4-16.0) gm/dL Hct 20.1 L (34.0-46.0) % RDW 16.9 H (11.5-15.5) % Sodium 136 L (137-145) mmol/L Carbon Dioxide 20 L (22-30) mmol/L BUN 60 H (7-17) mg/dL Creatinine 3.02 H (0.52-1.04) mg/dL Glucose 120 H (74-99) mg/dL Calcium 8.3 L (8.4-10.2) mg/dL Albumin 3.3 L (3.5-5.0) g/dL Urine Appearance (Clear) Urine Protein (Negative) Urine Blood (Negative) Ur Leukocyte Esterase (Negative) Urine RBC (0-5) /hpf Urine WBC (0-5) /hpf Urine WBC Clumps (None) /hpf Urine Bacteria (None) /hpf Crossmatch See Detail 09/08/22 Range/Units 22:07 RBC (3.80-5.40) m/uL Hgb (11.4-16.0) gm/dL Hct (34.0-46.0) % RDW (11.5-15.5) % Sodium (137-145) mmol/L Carbon Dioxide (22-30) mmol/L BUN (7-17) mg/dL Creatinine (0.52-1.04) mg/dL Glucose (74-99) mg/dL Calcium (8.4-10.2) mg/dL Albumin (3.5-5.0) g/dL Urine Appearance Cloudy H (Clear) Urine Protein 2+ H (Negative) Urine Blood Small H (Negative) Ur Leukocyte Esterase Large H (Negative) Urine RBC 21 H (0-5) /hpf Urine WBC >182 H (0-5) /hpf Urine WBC Clumps Moderate H (None) /hpf Urine Bacteria Rare H (None) /hpf Crossmatch Assessment and Plan Assessment: 82 year old female with systolic CHF LVEF 40$ , coming in for generalized weakness, I discussed the case with ED doc , and I accepted the admission for acute on chronic anemia , for blood tranfusion and further workup and management , with anticipated length ofstay < 2 midnights acute on chronic anemia Baseline Hgb 8-9 , now presenting with Hgb of 6.3 no identifiable source of bleeding patient was missing aranesp while at rehab denies GI bleeding blood tranfusion of 1 u PRBC monitor hemoglobin chronic conditions chronic systolic CHF , with LVEF 40$ , compensated , resume atorvastatin and coreg DM dietary controlled, insulin sliding scale CKD 4, stable , avoid nephro toxic meds, monitor urine output BUN 60 cr 3, Na 136 K 5 hypothyroid resume levothyroxine full code dvt ppx mechanical
[2022-09-09] MEDS: carvediloL 3.125 MG TAB PO SCH ×3 (03:16→17:51)
[2022-09-09] MEDS: PREGABALIN 50 MG CAP PO SCH ×2 (03:16→21:01)
[2022-09-09] MEDS: LEVOTHYROXINE 88 MCG TAB PO SCH (06:21)
[2022-09-09 07:06] LABS: Glucose,Whole Blood 117 mg/dL (70-110)
[2022-09-09] MEDS: INSULIN ASPART (NovoLOG) 100 UNIT/ML VIAL SQ SCH ×4 (07:12→21:01)
--- NOTE | 2022-09-09 08:33 | P.NPCON ---
History of Present Illness - Reason for Consult chronic renal failure - History of Present Illness Reason for consultation: Chronic kidney disease History of present illness: Patient is a 82-year-old female seen in renal consultation for chronic kidney disease. Patient has chronic kidney disease stage IV with baseline creatinine near 3 secondary to biopsy-proven diabetic kidney disease. Patient came to the hospital due to generalized weakness. Patient states she was having a hard time walking. She uses a walker. Hemoglobin was noted to be low at 6.3 and she did receive blood transfusion this admission. She denies any active bleeding. No melena or hematochezia. No gross hematuria. Patient did have a right ureteral stent placed on 08/18/2022. She also has history of aortic follow-up repl acement. She denies use of nonsteroidals. Denies fever or chills. No vomiting or diarrhea. Denies chest pain or shortness of breath. Oral intake is good. Vital signs are stable. General: No acute distress. HEENT: Head exam is unremarkable. LUNGS: No audible rhonchi or wheezes. HEART: Rate and Rhythm are regular. ABDOMEN: Obese, nontender. EXTREMITITES: Trace edema. Past Medical History Past Medical History: Diabetes Mellitus, Hypertension, Renal Disease Additional Past Medical History / Comment(s): Type2, hypothyroidism, chronic back/neck pain, fibromyalgia History of Any Multi-Drug Resistant Organisms: None Reported Past Surgical History: Unable to Obtain Additional Past Surgical History / Comment(s): neck surgery, c-spine surgery, heart valve replacement, uerter stent placement 08/18/2022 Past Anesthesia/Blood Transfusion Reactions: No Reported Reaction Past Psychological History: No Psychological Hx Reported Smoking Status: Never smoker Past Alcohol Use History: None Reported Past Drug Use History: None Reported - Past Family History Family Family Medical History: No Reported History Medications and Allergies Home Medications Medication Instructions Recorded Confirmed Type Albuterol Inhaler [Ventolin Hfa 2 puff INHALATION RT-Q4H PRN 06/19/21 09/08/22 History Inhaler] Levothyroxine Sodium [Synthroid] 88 mcg PO DAILY 06/19/21 09/08/22 History Omeprazole 40 mg PO DAILY 06/19/21 09/08/22 History Tamsulosin [Flomax] 0.4 mg PO DAILY 02/03/22 09/08/22 History Hyoscyamine Sulfate [Levsin] 0.125 mg PO TID PRN 07/08/22 09/08/22 History Aspirin EC [Ecotrin Low Dose] 81 mg PO DAILY 07/28/22 09/08/22 History Loratadine [Claritin] 10 mg PO DAILY PRN 07/28/22 09/08/22 History Mirabegron [Myrbetriq] 25 mg PO DAILY 07/28/22 09/08/22 History polyethylene glycoL 3350 [Miralax] 17 gm PO DAILY 08/19/22 09/08/22 History HYDROcodone/APAP 7.5-325MG [[place] 1 tab PO Q6HR PRN #7 tab 08/25/22 09/08/22 Rx 7.5-325] Pregabalin [Lyrica] 25 mg PO DAILY #3 cap 08/25/22 09/08/22 Rx Pregabalin [Lyrica] 50 mg PO HS #3 cap 08/25/22 09/08/22 Rx carvediloL [Coreg] 3.125 mg PO BID-W/MEALS #60 tab 08/25/22 09/08/22 Rx Atorvastatin [Lipitor] 40 mg PO HS 09/08/22 09/08/22 History Loperamide [Imodium] 2 mg PO QID PRN 09/08/22 09/08/22 History polyethylene glycoL 3350 [Miralax] 17 gm PO DAILY PRN 09/08/22 09/08/22 History Allergies Allergy/AdvReac Type Severity Reaction Status Date / Time Penicillins Allergy Swelling Verified 09/08/22 22:07 Sulfa (Sulfonamide Allergy Unknown Verified 09/08/22 22:07 Antibiotics) clindamycin AdvReac Nausea & Verified 09/08/22 22:07 Vomiting morphine AdvReac Nausea & Verified 09/08/22 22:07 Vomiting Physical Exam Vitals: Vital Signs Temp Pulse Pulse Resp BP BP Pulse Ox 09/09/22 07:07 98.6 F 73 14 115/57 94 L 09/09/22 03:29 18 94 L 09/09/22 03:13 98.8 F 87 18 127/63 94 L 09/09/22 02:51 94 20 136/60 92 L 09/09/22 00:47 98.3 F 92 18 137/62 93 L 09/09/22 00:27 97.9 F 90 18 135/58 96 09/09/22 00:22 98.4 F 91 18 138/52 96 09/08/22 22:10 81 17 139/55 95 09/08/22 22:00 82 17 09/08/22 21:50 80 29 H 94 L 09/08/22 21:40 81 20 110/47 93 L 09/08/22 21:30 80 15 93 L 09/08/22 21:20 81 10 L 95 09/08/22 21:10 84 17 109/39 91 L 09/08/22 21:00 82 22 92 L 09/08/22 20:50 79 19 97 09/08/22 20:40 81 20 125/51 92 L 09/08/22 20:30 79 17 94 L 09/08/22 20:20 80 17 09/08/22 20:10 77 115/44 95 09/08/22 20:00 72 19 97 09/08/22 19:50 73 17 115/39 98 09/08/22 19:48 73 15 99 09/08/22 19:31 98.1 F 77 20 108/53 99 Intake and Output 09/08/22 09/09/22 09/09/22 22:59 06:59 14:59 Intake Total 830 Balance 830 Intake: Oral 520 Blood Product 310 Rc As-1 Unit 310 [id number] Other: Voiding Method External Catheter # Voids 1 1 # Bowel Movements 1 Weight 79.832 kg 79.832 kg Results - Lab Results Most recent lab results Calcium 8.3 mg/dL (8.4-10.2) L 09/08/22 20:27 Magnesium 1.8 mg/dL (1.6-2.3) 09/08/22 20:27 09/08/22 20:27 09/08/22 20:27 Assessment and Plan Plan: Assessment: 1. Chronic kidney disease stage IV with baseline creatinine near 3 secondary to biopsy-proven diabetic kidney disease. 2. Acute blood loss anemia status post blood transfusion. Denies any active bleeding. 3. Diabetes mellitus. 4. Right-sided hydronephrosis status post ureteral stent placement 08/18/2022. 5. History of hyperkalemia due to chronic kidney disease and acute bleed. 6. Metabolic acidosis secondary to chronic kidney disease. Plan: Add oral bicarb. Add Aranesp. Low potassium diet. Follow-up morning labs. Continue to monitor renal function and urine output. Patient hesitant to discuss renal replacement therapy. Will schedule formal education outpatient and also refer for vein mapping. Thank you for the consultation. I will continue to follow the patient with you during her hospital stay.
[2022-09-09] MEDS: SODIUM BICARBONATE TAB 650 MG TAB PO SCH ×2 (08:48→21:01)
[2022-09-09] MEDS: NON FORMULARY DRUG (Mirabegron [Myrbetriq] 25 MG Tab.Er.24h) PO SCH (08:49)
[2022-09-09] MEDS: PREGABALIN 25 MG CAP PO SCH (08:49)
[2022-09-09] MEDS: TAMSULOSIN 0.4 MG CAP.ER.24H PO SCH (08:49)
[2022-09-09] MEDS: PANTOPRAZOLE 40 MG TABLET PO SCH (08:49)
[2022-09-09] MEDS ORDERED: DARBEPOETIN ALFA 40 MCG/0.4 ML SYRINGE SQ SCH (09:00)
[2022-09-09 09:36] LABS: Anisocytosis Slight; Basophils % (A) 0 %; Eosinophils # (A) 0.2 k/uL (0-0.7); Eosinophils % (A) 2 %; HCT 21.8 % (34.0-46.0); HGB 7.1 gm/dL (11.4-16.0); Hypochromasia Slight; Lymphocytes # (A) 1.3 k/uL (1.0-4.8); Lymphocytes % (A) 17 %; MCH 31.6 pg (25.0-35.0); MCHC 32.4 g/dL (31.0-37.0); MCV 97.4 fL (80.0-100.0); Macrocytosis Slight; Mean Platelet Volume 10.8; Monocytes # (A) 0.3 k/uL (0-1.0); Monocytes % (A) 4 %; Neutrophils # (A) 5.7 k/uL (1.3-7.7); Neutrophils % (A) 75 %; Platelet Count 206 k/uL (150-450); RBC 2.24 m/uL (3.80-5.40); RDW 16.2 % (11.5-15.5); WBC 7.6 k/uL (3.8-10.6)
[2022-09-09 09:39] LABS: Calcium 8.4 mg/dL (8.4-10.2); Potassium 5.3 mmol/L (3.5-5.1)
[2022-09-09 11:15] LABS: Glucose,Whole Blood 109 mg/dL (70-110)
[2022-09-09] MEDS ORDERED: SODIUM ZIRCONIUM CYCLOSILICATE 10 GM PACKET PO ONE (14:07)
--- NOTE | 2022-09-09 14:29 | P.PN ---
Subjective Progress Note Date: 09/09/22 Hospital course: Patient is a very pleasant 82-year-old female with a past medical history of stage IV chronic kidney disease, hypertension, hyperlipidemia, hypothyroidism and diabetes mellitus. She recently underwent a ureteral stent placement on 08/18/22. She presented to the emergency department overnight with a chief complaint of generalized weakness. Patient underwent full evaluation in the emergency department. Labs completed. CBC revealed acute on chronic anemia with hemoglobin of 6.3. Coagulation profile normal findings. BMP consistent with stage IV chronic kidney disease with BU 74 bpm with a left bundle-branch block N of 60, creatinine 3.02, and GFR 14. Troponin negative at less than 0.012 and proBNP 3580. Urinalysis concerning for infection with greater than 182 WBCs. Influenza A, influenza B, RSV, and Covid PCR negative. EKG was completed showing normal sinus rhythm at 74 bpm with a left bundle branch block upon personal review and interpretation, when compared EKG completed 08/19/22 unchanged with the exception of rate. Physical exam: Vital signs reviewed and stable. General: Nontoxic, no distress and appears stated age. Derm: Skin warm and dry, normal coloration for ethnicity. Head: Atraumatic, normocephalic and symmetric. Eyes: EOMs intact, no lid lag, and anicteric sclera Mouth: no lip lesions, mucus membranes moist Cardiovascular: regular rate and rhythm with normal S1S2, systolic murmur, positive posterior tibial pulses bilaterally, and cap refill < 2 seconds. Lungs: Respirations even, regular, and unlabored on room air. Lungs CTA bilaterally, no rhonchi, no rales, no wheezing, and no accessory muscle usage. Abdominal: soft, nontender to palpation, no guarding, no appreciable organomegaly Ext: ROM intact. No gross muscle atrophy, no edema, no contractures Neuro: Speech clear, face symmetrical and CN II-XII grossly intact with no noted focal neuro deficits Psych: Alert and oriented to person, place, time, and situation. Appropriate and pleasant affect. Assessment and Plan of Care: Stage IV chronic kidney disease Hyperkalemia, secondary to stage IV chronic kidney disease -Morning labs reviewed. CBC showing slight improvement of hemoglobin from 6.3 up to 7.1 status post transfusion of 1 unit PRBCs. BMP revealing hyperkalemia with potassium of 5.3, BUN 59, creatinine 3.13, and GFR of 13. -Order placed for Lokelma 10 mg by mouth 1 dose after discussion with supervisor prepress. -Patient to remain on telemetry monitoring.. -Order placed for a repeat BMP and magnesium tomorrow morning. -Nephrology following and starting patient on darbepoetin Acute on chronic anemia -Patient received 1 unit of PRBCs Status post transfusion of PRBCs hemoglobin stable at 7.1. -Order placed for repeat CBC and 12 hours and again tomorrow morning. UTI -Continue Rocephin 2 g daily -Bladder management, monitor for postvoid residual. -Patient status post recent ureteral stent placement on 08/18/22. Continue Flomax. Hypertension Hyperlipidemia Hypothyroidism Type II [id number] diabetes mellitus -Home medications reviewed. Patient to continue with atorvastatin 40 mg nightly, carvedilol 3.125 mg twice daily, and levothyroxine 88 g daily, CODE STATUS: Full code DVT prophylaxis: SCDs Discussed with: patient, RN, and supervisor prepress Anticipated discharge date: clinical course to determine Anticipated discharge place: home Patient was seen independently by Nurse Pracitioner. This document was prepared using [employer] dictation software. Please allow for errors in international operations manager, while rare they do occur. I reviewed the documentation as provided by the DALTON above, who is the original author of this note. I agree with the documented assessment and plan, with the following changes: none Objective - Vital Signs Vital signs: Vital Signs Temp 98.6 F 09/09/22 07:07 Pulse 73 09/09/22 07:07 Resp 14 09/09/22 07:07 BP 115/57 09/09/22 07:07 Pulse Ox 94 L 09/09/22 07:07 FiO2 Intake & Output 09/08/22 09/09/22 09/09/22 18:59 06:59 18:59 Intake Total 830 Balance 830 Weight 79.832 kg Intake: Oral 520 Blood Product 310 Rc As-1 Unit 310 [id number] Other: Voiding Method External Catheter Bedside Commode # Voids 1 1 # Bowel Movements 1 - Labs CBC & Chem 7: 09/09/22 18:37 09/10/22 06:52 Labs: Abnormal Lab Results - Last 24 Hours (Table) 09/08/22 09/08/22 09/08/22 Range/Units 20:27 20:27 21:40 RBC 2.11 L (3.80-5.40) m/uL Hgb 6.3 L* (11.4-16.0) gm/dL Hct 20.1 L (34.0-46.0) % RDW 16.9 H (11.5-15.5) % Sodium 136 L (137-145) mmol/L Carbon Dioxide 20 L (22-30) mmol/L BUN 60 H (7-17) mg/dL Creatinine 3.02 H (0.52-1.04) mg/dL Glucose 120 H (74-99) mg/dL POC Glucose (mg/dL) (70-110) mg/dL Calcium 8.3 L (8.4-10.2) mg/dL Albumin 3.3 L (3.5-5.0) g/dL Urine Appearance (Clear) Urine Protein (Negative) Urine Blood (Negative) Ur Leukocyte Esterase (Negative) Urine RBC (0-5) /hpf Urine WBC (0-5) /hpf Urine WBC Clumps (None) /hpf Urine Bacteria (None) /hpf Crossmatch See Detail 09/08/22 09/09/22 Range/Units 22:07 07:05 RBC (3.80-5.40) m/uL Hgb (11.4-16.0) gm/dL Hct (34.0-46.0) % RDW (11.5-15.5) % Sodium (137-145) mmol/L Carbon Dioxide (22-30) mmol/L BUN (7-17) mg/dL Creatinine (0.52-1.04) mg/dL Glucose (74-99) mg/dL POC Glucose (mg/dL) 117 H (70-110) mg/dL Calcium (8.4-10.2) mg/dL Albumin (3.5-5.0) g/dL Urine Appearance Cloudy H (Clear) Urine Protein 2+ H (Negative) Urine Blood Small H (Negative) Ur Leukocyte Esterase Large H (Negative) Urine RBC 21 H (0-5) /hpf Urine WBC >182 H (0-5) /hpf Urine WBC Clumps Moderate H (None) /hpf Urine Bacteria Rare H (None) /hpf Crossmatch
[2022-09-09 17:28] LABS: Glucose,Whole Blood 133 mg/dL (70-110)
[2022-09-09 19:20] LABS: Anisocytosis Slight; HCT 22.9 % (34.0-46.0); HGB 7.2 gm/dL (11.4-16.0); Hypochromasia Slight; MCH 30.4 pg (25.0-35.0); MCHC 31.3 g/dL (31.0-37.0); MCV 97.2 fL (80.0-100.0); Macrocytosis Slight; Mean Platelet Volume 10.1; Platelet Count 184 k/uL (150-450); RBC 2.36 m/uL (3.80-5.40); RDW 16.5 % (11.5-15.5); WBC 5.4 k/uL (3.8-10.6)
[2022-09-09 20:52] LABS: Glucose,Whole Blood 116 mg/dL (70-110)
[2022-09-10 01:00] LABS: % Iron Saturation 10.06 (12.00-45.00)
[2022-09-10] MEDS: HYDROcodone/APAP 7.5-325MG 1 EACH TAB PO PRN ×3 (04:46→17:28)
[2022-09-10] MEDS: LEVOTHYROXINE 88 MCG TAB PO SCH (06:05)
[2022-09-10 07:50] LABS: Glucose,Whole Blood 97 mg/dL (70-110)
[2022-09-10 07:53] LABS: African American GFR (CKD) 14 (>60 ml/min/1.73 sqM); Anion Gap 9 mmol/L; Blood Urea Nitrogen 64 mg/dL (7-17); Calcium 8.6 mg/dL (8.4-10.2); Carbon Dioxide 23 mmol/L (22-30); Chloride 106 mmol/L (98-107); Glucose 91 mg/dL (74-99); Non-African American GFR(CKD) 12 (>60 ml/min/1.73 sqM); Potassium 4.6 mmol/L (3.5-5.1); Sodium 138 mmol/L (137-145)
[2022-09-10] MEDS: carvediloL 3.125 MG TAB PO SCH ×2 (09:08→18:19)
[2022-09-10] MEDS: INSULIN ASPART (NovoLOG) 100 UNIT/ML VIAL SQ SCH ×4 (09:08→20:36)
[2022-09-10] MEDS: PANTOPRAZOLE 40 MG TABLET PO SCH (09:09)
[2022-09-10] MEDS: PREGABALIN 25 MG CAP PO SCH (09:09)
[2022-09-10] MEDS: SODIUM BICARBONATE TAB 650 MG TAB PO SCH ×2 (09:09→20:39)
[2022-09-10] MEDS: TAMSULOSIN 0.4 MG CAP.ER.24H PO SCH (09:09)
[2022-09-10] MEDS: NON FORMULARY DRUG (Mirabegron [Myrbetriq] 25 MG Tab.Er.24h) PO SCH (09:10)
[2022-09-10] MEDS: polyethylene glycoL 3350 17 GM POWD.PACK PO SCH (09:10)
--- NOTE | 2022-09-10 10:52 | P.PN ---
Subjective Patient is seen in follow-up for chronic kidney disease. Renal function a little worse today. Creatinine 2.45. Admits to good urine output. Denies any active bleeding. Oral intake is good. Hemodynamically stable. Vital signs are stable. General: No acute distress. HEENT: Head exam is unremarkable. LUNGS: No audible rhonchi or wheezes. HEART: Rate and Rhythm are regular. ABDOMEN: Nontender. Obese. EXTREMITITES: No edema. Objective - Vital Signs Vital signs: Vital Signs Temp 97.6 F 09/10/22 08:00 Pulse 61 09/10/22 08:00 Resp 18 09/10/22 08:00 BP 108/52 09/10/22 08:00 Pulse Ox 97 09/10/22 08:00 FiO2 Intake & Output 09/09/22 09/10/22 09/10/22 18:59 06:59 18:59 Intake Total 118 Balance 118 Intake: Oral 118 Other: Voiding Method Bedside Commode Toilet # Voids 2 3 # Bowel Movements 2 3 - Labs CBC & Chem 7: 09/09/22 18:37 09/10/22 06:52 Labs: Abnormal Lab Results - Last 24 Hours (Table) 09/09/22 09/09/22 09/09/22 Range/Units 08:08 08:08 17:26 RBC (3.80-5.40) m/uL Hgb (11.4-16.0) gm/dL Hct (34.0-46.0) % RDW (11.5-15.5) % BUN (7-17) mg/dL Creatinine (0.52-1.04) mg/dL POC Glucose (mg/dL) 133 H (70-110) mg/dL Iron 28 L 28 L (50-170) ug/dL % Saturation 10.06 L (12.00-45.00) Transferrin 201.0 L (204.0-354.0) mg/dL Ferritin 413.0 H (10.0-291.0) ng/mL 09/09/22 09/09/22 09/10/22 Range/Units 18:37 20:42 06:52 RBC 2.36 L (3.80-5.40) m/uL Hgb 7.2 L (11.4-16.0) gm/dL Hct 22.9 L (34.0-46.0) % RDW 16.5 H (11.5-15.5) % BUN 64 H (7-17) mg/dL Creatinine 3.45 H (0.52-1.04) mg/dL POC Glucose (mg/dL) 116 H (70-110) mg/dL Iron (50-170) ug/dL % Saturation (12.00-45.00) Transferrin (204.0-354.0) mg/dL Ferritin (10.0-291.0) ng/mL Assessment and Plan Plan: Assessment: 1. Chronic kidney disease stage IV with baseline creatinine near 3 secondary to biopsy-proven diabetic kidney disease. Creatinine 3.45 today. 2. Acute blood loss anemia status post blood transfusion. Denies any active bleeding. Hemoglobin 7.2 as of yesterday. On Aranesp. 3. Diabetes mellitus. 4. Right-sided hydronephrosis status post ureteral stent placement 08/18/2022. 5. History of hyperkalemia due to chronic kidney disease and acute bleed. Potassium level normal today. 6. Metabolic acidosis secondary to chronic kidney disease. On oral bicarb. Better. Plan: Low potassium diet. IV iron 2 doses. Continue to monitor renal function and urine output. Patient hesitant to discuss renal replacement therapy. Will schedule formal education outpatient and also refer for vein mapping. Follow up outpatient 1 week post discharge.
[2022-09-10] MEDS: SODIUM FERRIC GLUCONAT-SUCROSE 125 MG in SODIUM CHLORIDE 0.9% 100 ML IVPB SCH (11:28)
[2022-09-10 11:37] LABS: Glucose,Whole Blood 130 mg/dL (70-110)
[2022-09-10 13:57] LABS: HCT 23.2 % (37.2-46.3); HGB 7.1 g/dL (12.0-15.0); MCH 30.5 pg (27.0-32.0); MCHC 30.6 g/dL (32.0-37.0); MCV 99.6 fL (80.0-97.0); Mean Platelet Volume 12.1 fL (9.5-12.2); NRBC Per 100 WBC 0 /100 WBCS (0.0-0.0); Platelet Count 203 X 10*3/uL (140-440); RBC 2.33 X 10*6/uL (4.10-5.20); RDW 16.1 % (11.5-14.5); WBC 5.95 X 10*3/uL (4.50-10.00)
[2022-09-10 17:14] LABS: Glucose,Whole Blood 96 mg/dL (70-110)
--- NOTE | 2022-09-10 17:34 | P.PN ---
Subjective Progress Note Date: 09/10/22 Patient seen and examined at bedside. Patient is very eager to go home. However creatinine is trending up. Patient denies chest pain, shortness breath, nausea, fever or chills. Objective - Vital Signs Vital signs: Vital Signs Temp 98.6 F 09/10/22 13:00 Pulse 63 09/10/22 13:00 Resp 16 09/10/22 13:00 BP 117/58 09/10/22 13:00 Pulse Ox 99 09/10/22 13:00 FiO2 Intake & Output 09/09/22 09/10/22 09/10/22 18:59 06:59 18:59 Intake Total 236 Balance 236 Intake: Oral 236 Other: Voiding Method Bedside Commode Toilet Toilet # Voids 2 3 1 # Bowel Movements 2 3 3 - Exam General: [non toxic], [no distress], [appears at stated age] Derm: [warm], [dry] Head: [atraumatic], [normocephalic], [symmetric] Eyes: [EOMI], [no lid lag], [anicteric sclera] Mouth: [no lip lesion], [mucus membranes moist] Cardiovascular: [S1S2 reg], [systolic murmur], [positive posterior tibial pulse bilateral], Lungs: [CTA bilateral], [no rhonchi, no rales] , [no accessory muscle use] Abdominal: [soft], [ nontender to palpation], [no guarding], [no appreciable organomegaly] Ext: [no gross muscle atrophy], [no edema], [no contractures] Neuro: [ CN II-XI grossly intact], [no focal neuro deficits] Psych: [Alert], [oriented], [appropriate affect] - Labs CBC & Chem 7: 09/10/22 06:52 09/10/22 06:52 Labs: Abnormal Lab Results - Last 24 Hours (Table) 09/09/22 09/09/22 09/09/22 Range/Units 08:08 18:37 20:42 RBC 2.36 L (3.80-5.40) m/uL Hgb 7.2 L (11.4-16.0) gm/dL Hct 22.9 L (34.0-46.0) % MCV (80.0-97.0) fL MCHC (32.0-37.0) g/dL RDW 16.5 H (11.5-15.5) % BUN (7-17) mg/dL Creatinine (0.52-1.04) mg/dL POC Glucose (mg/dL) 116 H (70-110) mg/dL Iron 28 L (50-170) ug/dL % Saturation 10.06 L (12.00-45.00) Transferrin 201.0 L (204.0-354.0) mg/dL Ferritin 413.0 H (10.0-291.0) ng/mL 09/10/22 09/10/22 09/10/22 Range/Units 06:52 06:52 11:35 RBC 2.33 L (3.80-5.40) m/uL Hgb 7.1 L (11.4-16.0) gm/dL Hct 23.2 L (34.0-46.0) % MCV 99.6 H (80.0-97.0) fL MCHC 30.6 L (32.0-37.0) g/dL RDW 16.1 H (11.5-15.5) % BUN 64 H (7-17) mg/dL Creatinine 3.45 H (0.52-1.04) mg/dL POC Glucose (mg/dL) 130 H (70-110) mg/dL Iron (50-170) ug/dL % Saturation (12.00-45.00) Transferrin (204.0-354.0) mg/dL Ferritin (10.0-291.0) ng/mL Assessment and Plan Assessment: Stage IV chronic kidney disease Hyperkalemia resolved, secondary to stage IV chronic kidney disease -Morning labs reviewed. CBC showing slight improvement of hemoglobin from 6.3 up to 7.1 status post transfusion of 1 unit PRBCs. Creatinine trending up at 3.45 -Patient to remain on telemetry monitoring.. -Order placed for a repeat BMP and magnesium tomorrow morning. -Nephrology following and starting patient on darbepoetin Acute on chronic anemia stable -Patient received 1 unit of PRBCs Status post transfusion of PRBCs hemoglobin stable at 7.1. -Trend CBC UTI -Continue Rocephin 2 g daily -Bladder management, monitor for postvoid residual. -Patient status post recent ureteral stent placement on 08/18/22. Continue Flomax. Hypertension Hyperlipidemia Hypothyroidism Type II [id number] diabetes mellitus -Home medications reviewed. Patient to continue with atorvastatin 40 mg nightly, carvedilol 3.125 mg twice daily, and levothyroxine 88 g daily, CODE STATUS: Full code DVT prophylaxis: SCDs Anticipated discharge date: clinical course to determine Anticipated discharge place: home This document was prepared using [employer] dictation software. Please allow for errors in garment parts cutter machine, while rare they do occur.
[2022-09-10 20:01] LABS: Glucose,Whole Blood 129 mg/dL (70-110)
[2022-09-10] MEDS: ATORVASTATIN 40 MG TAB PO SCH (20:39)
[2022-09-10] MEDS: PREGABALIN 50 MG CAP PO SCH (20:39)
[2022-09-11] MEDS: HYDROcodone/APAP 7.5-325MG 1 EACH TAB PO PRN ×3 (00:17→16:00)
[2022-09-11] MEDS: LEVOTHYROXINE 88 MCG TAB PO SCH (05:49)
[2022-09-11 06:56] VITALS: RESP 17
[2022-09-11 07:32] LABS: Glucose,Whole Blood 101 mg/dL (70-110)
[2022-09-11] MEDS: INSULIN ASPART (NovoLOG) 100 UNIT/ML VIAL SQ SCH ×2 (08:48→11:10)
[2022-09-11] MEDS: NON FORMULARY DRUG (Mirabegron [Myrbetriq] 25 MG Tab.Er.24h) PO SCH (09:01)
[2022-09-11] MEDS: polyethylene glycoL 3350 17 GM POWD.PACK PO SCH (09:01)
[2022-09-11] MEDS: SODIUM BICARBONATE TAB 650 MG TAB PO SCH (09:02)
[2022-09-11] MEDS: carvediloL 3.125 MG TAB PO SCH (09:02)
[2022-09-11] MEDS: PANTOPRAZOLE 40 MG TABLET PO SCH (09:02)
[2022-09-11] MEDS: TAMSULOSIN 0.4 MG CAP.ER.24H PO SCH (09:02)
[2022-09-11] MEDS: PREGABALIN 25 MG CAP PO SCH (09:03)
[2022-09-11 10:55] LABS: Basophils # (A) 0.04 X 10*3/uL (0.00-0.10); Basophils % (A) 0.8 %; Eosinophils # (A) 0.17 X 10*3/uL (0.04-0.35); Eosinophils % (A) 3.6 %; HCT 23.3 % (37.2-46.3); HGB 7.3 g/dL (12.0-15.0); Immature Grans, Automated 0.4 %; Lymphocytes % (A) 21.1 %; MCH 30.8 pg (27.0-32.0); MCHC 31.3 g/dL (32.0-37.0); MCV 98.3 fL (80.0-97.0); Mean Platelet Volume 12.3 fL (9.5-12.2); Monocytes % (A) 6.3 %; NRBC Per 100 WBC 0 /100 WBCS (0.0-0.0); Neutrophils # (A) 3.21 X 10*3/uL (1.80-7.70); Neutrophils % (A) 67.8 %; Platelet Count 223 X 10*3/uL (140-440); RBC 2.37 X 10*6/uL (4.10-5.20); WBC 4.74 X 10*3/uL (4.50-10.00)
[2022-09-11 10:58] LABS: Glucose,Whole Blood 128 mg/dL (70-110)
[2022-09-11] MEDS: SODIUM FERRIC GLUCONAT-SUCROSE 125 MG in SODIUM CHLORIDE 0.9% 100 ML IVPB SCH (11:06)
[2022-09-11 11:58] LABS: African American GFR (CKD) 15.7 (60.0-200.0); Albumin 3.4 g/dL (3.8-4.9); Albumin/Globulin Ratio 0.94 (1.60-3.17); Anion Gap 11.1 mmol/L (10.00-18.00); BUN/Creat Ratio 18.97 Ratio (12.00-20.00); Blood Urea Nitrogen 58.8 mg/dL (9.0-27.0); Carbon Dioxide 20.9 mmol/L (20.0-27.5); Globulin 3.6 g/dL (1.6-3.3); Non-African American GFR(CKD) 13.5 (60.0-200.0); Potassium 4.8 mmol/L (3.5-5.5); Total Bilirubin 0.3 mg/dL (0.30-1.20)
--- NOTE | 2022-09-11 12:11 | P.PN ---
Subjective Patient is seen in follow-up for chronic kidney disease. Renal function better. Creatinine 3.1 today. Admits to good urine output. Denies any active bleeding. Oral intake is good. Hemodynamically stable. Hemoglobin stable at 7.3. Vital signs are stable. General: No acute distress. HEENT: Head exam is unremarkable. LUNGS: No audible rhonchi or wheezes. HEART: Rate and Rhythm are regular. ABDOMEN: Nontender. Obese. EXTREMITITES: No edema. Objective - Vital Signs Vital signs: Vital Signs Temp 97.4 F L 09/11/22 06:56 Pulse 60 09/11/22 06:56 Resp 17 09/11/22 06:56 BP 116/64 09/11/22 06:56 Pulse Ox 97 09/11/22 06:56 FiO2 Intake & Output 09/10/22 09/11/22 09/11/22 18:59 06:59 18:59 Intake Total 236 540 Output Total 1 Balance 236 540 -1 Intake: Oral 236 540 Output: Urine 1 Other: Voiding Method Toilet Toilet Toilet # Voids 1 1 # Bowel Movements 3 1 - Labs CBC & Chem 7: 09/11/22 07:03 09/11/22 07:03 Labs: Abnormal Lab Results - Last 24 Hours (Table) 09/10/22 09/10/22 09/11/22 Range/Units 06:52 19:58 07:03 RBC 2.33 L 2.37 L (4.10-5.20) X 10*6/uL Hgb 7.1 L 7.3 L (12.0-15.0) g/dL Hct 23.2 L 23.3 L (37.2-46.3) % MCV 99.6 H 98.3 H (80.0-97.0) fL MCHC 30.6 L 31.3 L (32.0-37.0) g/dL RDW 16.1 H 16.0 H (11.5-14.5) % MPV 12.3 H (9.5-12.2) fL BUN (9.0-27.0) mg/dL Creatinine (0.6-1.5) mg/dL Est GFR (CKD-EPI)AfAm (60.0-200.0) Est GFR (CKD-EPI)NonAf (60.0-200.0) POC Glucose (mg/dL) 129 H (70-110) mg/dL Albumin (3.8-4.9) g/dL Globulin (1.6-3.3) g/dL Albumin/Globulin Ratio (1.60-3.17) g/dL 09/11/22 09/11/22 Range/Units 07:03 10:57 RBC (4.10-5.20) X 10*6/uL Hgb (12.0-15.0) g/dL Hct (37.2-46.3) % MCV (80.0-97.0) fL MCHC (32.0-37.0) g/dL RDW (11.5-14.5) % MPV (9.5-12.2) fL BUN 58.8 H (9.0-27.0) mg/dL Creatinine 3.1 H (0.6-1.5) mg/dL Est GFR (CKD-EPI)AfAm 15.7 L (60.0-200.0) Est GFR (CKD-EPI)NonAf 13.5 L (60.0-200.0) POC Glucose (mg/dL) 128 H (70-110) mg/dL Albumin 3.4 L (3.8-4.9) g/dL Globulin 3.6 H (1.6-3.3) g/dL Albumin/Globulin Ratio 0.94 L (1.60-3.17) g/dL Assessment and Plan Plan: Assessment: 1. Chronic kidney disease stage IV with baseline creatinine near 3 secondary to biopsy-proven diabetic kidney disease. Creatinine improved to 3.1 today. 2. Acute blood loss anemia status post blood transfusion. Denies any active bleeding. Hemoglobin 7. 3 today. On Aranesp. 3. Diabetes mellitus. 4. Right-sided hydronephrosis status post ureteral stent placement 08/18/2022. 5. History of hyperkalemia due to chronic kidney disease and acute bleed. Potassium level normal today. 6. Metabolic acidosis secondary to chronic kidney disease. On oral bicarb. Plan: Low potassium diet. Second dose of IV iron today. Continue to monitor renal function and urine output. Patient hesitant to discuss renal replacement therapy. Will schedule formal education outpatient and also refer for vein mapping. Follow up outpatient 1 week post discharge.
[2022-09-11 13:35] VITALS: BP 126/51; PULSE 63; TEMP 97.7
--- NOTE | 2022-09-11 15:38 | P.DS ---
Providers Date of admission: 09/08/22 23:27 Expected date of discharge: 09/11/22 Attending physician: Tacos Bunch MD Primary care physician: Naeem Herr MD Hospital Course: Discharge Diagnosis: Stage IV chronic kidney disease Hyperkalemia, secondary to stage IV chronic kidney disease Acute on chronic anemia. Patient received 1 unit of PRBCs Status post transfusion of PRBCs hemoglobin stable at 7.3. UTI. Patient completed 3 day course of IV antibiotics with Rocephin 2 g daily. Patient status post recent ureteral stent placement on 08/18/22. Continue Flomax and follow up outpatient with urologist as previously scheduled. Hypertension Hyperlipidemia Hypothyroidism Type II vpq-[id number] diabetes mellitus Hospital Course: Patient is a very pleasant 82-year-old female with a past medical history of stage IV chronic kidney disease, hypertension, hyperlipidemia, hypothyroidism and diabetes mellitus. She recently underwent a ureteral stent placement on 08/18/22. She presented to the emergency department overnight with a chief complaint of generalized weakness. Patient underwent full evaluation in the emergency department. Labs completed. CBC revealed acute on chronic anemia with hemoglobin of 6.3. Coagulation profile normal findings. BMP consistent with stage IV chronic kidney disease with BU 74 bpm with a left bundle-branch block N of 60, creatinine 3.02, and GFR 14. Troponin negative at less than 0.012 and proBNP 3580. Urinalysis concerning for infection with greater than 182 WBCs. Influenza A, influenza B, RSV, and Covid PCR negative. EKG was completed showing normal sinus rhythm at 74 bpm with a left bundle branch block upon personal review and interpretation, when compared EKG completed 08/19/22 unchanged with the exception of rate. Patient admitted under our services consultation to nephrology. She received 1 unit PRBCs and hemoglobin has since been stable. She was provided with IV iron 2 doses and being discharged home on ferrous sulfate 325 mg daily. She was evaluated by nephrology recommending further discussion on dialysis. At this time patient would like to think about more and states that she will follow up outpatient to further discuss. Patient also had urinalysis positive for infection and completed a three-day course of IV antibiotics with Rocephin 2 g daily. Medically, patient is stable at this time and she is requesting discharge home. Patient being discharged at this time and to follow up outpatient with PCP and painting department supervisor. Patient also instructed to follow up outpatient with her urologist secondary to recent ureteral stent placement on 08/18/22. Physical exam: Vital signs reviewed and stable. General: Nontoxic, no distress and appears stated age. Derm: Skin warm and dry, normal coloration for ethnicity. Head: Atraumatic, normocephalic and symmetric. Eyes: EOMs intact, no lid lag, and anicteric sclera Mouth: no lip lesions, mucus membranes moist Cardiovascular: regular rate and rhythm with normal S1S2, systolic murmur, positive posterior tibial pulses bilaterally, and cap refill < 2 seconds. Lungs: Respirations even, regular, and unlabored on room air. Lungs CTA bilaterally, no rhonchi, no rales, no wheezing, and no accessory muscle usage. Abdominal: soft, nontender to palpation, no guarding, no appreciable organomegaly Ext: ROM intact. No gross muscle atrophy, no edema, no contractures Neuro: Speech clear, face symmetrical and CN II-XII grossly intact with no noted focal neuro deficits Psych: Alert and oriented to person, place, time, and situation. Appropriate and pleasant affect. A total of 35 minutes of time were spent preparing this complex discharge summary. Pt was discharged on 09/11/22 at 3:20 PM. Patient was seen independently by Nurse Practitioner. This document was prepared using [employer] dictation software. Please allow for errors in manager pacu while rare they do occur. I reviewed the documentation as provided by the DALTON above, who is the original author of this note. I agree with the documented assessment and plan, with the following changes: none Patient Condition at Discharge: Stable Plan - Discharge Summary Discharge Rx Participant: No New Discharge Prescriptions: New Ferrous Sulfate [Iron (65 MG Elemental)] 325 mg PO DAILY 30 Days #30 tab Sodium Bicarbonate Tab 650 mg PO BID 30 Days #60 tab Continue Omeprazole 40 mg PO DAILY Aspirin EC [Ecotrin Low Dose] 81 mg PO DAILY Pregabalin [Lyrica] 25 mg PO DAILY #3 cap polyethylene glycoL 3350 [Miralax] 17 gm PO DAILY PRN PRN Reason: Constipation Albuterol Inhaler [Ventolin Hfa Inhaler] 2 puff INHALATION RT-Q4H PRN PRN Reason: Shortness Of Breath Levothyroxine Sodium [Synthroid] 88 mcg PO DAILY Tamsulosin [Flomax] 0.4 mg PO DAILY Hyoscyamine Sulfate [Levsin] 0.125 mg PO TID PRN PRN Reason: Gi Upset Mirabegron [Myrbetriq] 25 mg PO DAILY Loratadine [Claritin] 10 mg PO DAILY PRN PRN Reason: Allergy Symptoms polyethylene glycoL 3350 [Miralax] 17 gm PO DAILY carvediloL [Coreg] 3.125 mg PO BID-W/MEALS #60 tab HYDROcodone/APAP 7.5-325MG [[place] 7.5-325] 1 tab PO Q6HR PRN #7 tab PRN Reason: Pain Pregabalin [Lyrica] 50 mg PO HS #3 cap Atorvastatin [Lipitor] 40 mg PO HS Discontinued Loperamide [Imodium] 2 mg PO QID PRN PRN Reason: Diarrhea Discharge Medication List Albuterol Inhaler [Ventolin Hfa Inhaler] 2 puff INHALATION RT-Q4H PRN 06/19/21 [History] Levothyroxine Sodium [Synthroid] 88 mcg PO DAILY 06/19/21 [History] Omeprazole 40 mg PO DAILY 06/19/21 [History] Tamsulosin [Flomax] 0.4 mg PO DAILY 02/03/22 [History] Hyoscyamine Sulfate [Levsin] 0.125 mg PO TID PRN 07/08/22 [History] Aspirin EC [Ecotrin Low Dose] 81 mg PO DAILY 07/28/22 [History] Loratadine [Claritin] 10 mg PO DAILY PRN 07/28/22 [History] Mirabegron [Myrbetriq] 25 mg PO DAILY 07/28/22 [History] polyethylene glycoL 3350 [Miralax] 17 gm PO DAILY 08/19/22 [History] HYDROcodone/APAP 7.5-325MG [[place] 7.5-325] 1 tab PO Q6HR PRN #7 tab 08/25/22 [Rx] Pregabalin [Lyrica] 25 mg PO DAILY #3 cap 08/25/22 [Rx] Pregabalin [Lyrica] 50 mg PO HS #3 cap 08/25/22 [Rx] carvediloL [Coreg] 3.125 mg PO BID-W/MEALS #60 tab 08/25/22 [Rx] Atorvastatin [Lipitor] 40 mg PO HS 09/08/22 [History] polyethylene glycoL 3350 [Miralax] 17 gm PO DAILY PRN 09/08/22 [History] Ferrous Sulfate [Iron (65 MG Elemental)] 325 mg PO DAILY 30 Days #30 tab 09/11/22 [Rx] Sodium Bicarbonate Tab 650 mg PO BID 30 Days #60 tab 09/11/22 [Rx] Follow up Appointment(s)/Referral(s): [facility], [NON-STAFF] - 1 Week Naeem Herr MD [Primary Care Provider] - 09/17/22 1:20 pm Zack Duke DO [STAFF PHYSICIAN] - 12/02/22 10:40 am (Thee office will call if the doctor wants to see you before this date.) Activity/Diet/Wound Care/Special Instructions: Activity: As tolerated. Take breaks as needed. Diet: Heart healthy and carb consistent diet. Avoid salts, or foods with hidden salts such as canned or boxed foods and frozen dinners. Extra salt makes your heart work harder and traps the fluid in your body for longer. Special Instructions: Take all of your medications as directed and remember to keep all of your doctor's appointments and follow-up as needed. Remember you need to follow up outpatient with painting department supervisor next week. You will need to call the office for further scripts for Darbepoetin. Thank you for allowing us to participate in your care, it was truly a pleasure having you for our patient!!! Discharge Disposition: HOME WITH HOME HEALTH SERVICES
== END 2022-09-11 17:04 | disposition home health service (06) | DRG 812 ==
LOC: EC 19:26 → 3SCARD 23:27 → 5NMEDONC 09-09 00:38
PROVIDERS: ADMIT Internal Medicine; ATTEND Internal Medicine
PROC: 30233N1 Transfusion of Nonautologous Red Blood Cells into Peripheral Vein, Percutaneous Approach (ICD-10-PCS; principal; 2022-09-08)
DX: D62 Acute posthemorrhagic anemia (principal); I50.22 Chronic systolic (congestive) heart failure; E87.20 Acidosis, unspecified; I13.0 Hypertensive heart and chronic kidney disease with heart failure and stage 1 through stage 4 chronic kidney disease, or unspecified chronic kidney disease; N18.4 Chronic kidney disease, stage 4 (severe); N39.0 Urinary tract infection, site not specified; Z20.822 Contact with and (suspected) exposure to COVID-19; E11.22 Type 2 diabetes mellitus with diabetic chronic kidney disease; D63.1 Anemia in chronic kidney disease; E03.9 Hypothyroidism, unspecified; E87.5 Hyperkalemia; M79.7 Fibromyalgia; G89.29 Other chronic pain; M54.2 Cervicalgia; M54.9 Dorsalgia, unspecified; Z91.A4 Caregiver's other noncompliance with patient's medication regimen; E78.5 Hyperlipidemia, unspecified; I44.7 Left bundle-branch block, unspecified; Z91.148 Patient's other noncompliance with medication regimen for other reason; Z79.82 Long term (current) use of aspirin; Z79.890 Hormone replacement therapy; Z79.899 Other long term (current) drug therapy; Z95.2 Presence of prosthetic heart valve; Z88.0 Allergy status to penicillin; Z88.2 Allergy status to sulfonamides; Z88.5 Allergy status to narcotic agent; Z88.1 Allergy status to other antibiotic agents
CPT/HCPCS: 36415; 36430; 80048; 80053; 81001; 82272; 82728; 83036; 83540; 83550; 83605; 83735; 83880; 84484; 85025; 85027; 85610; 85730; 86850; 86900; 86901; 86920; 87636; 93005; 99291

== ENCOUNTER → 2022-09-22 | Outpatient (CLI) | payer MEDICARE, BC ==
[2022-09-22 11:56] LABS: Basophils % (A) 1 %; Eosinophils # (A) 0.2 k/uL (0-0.7); Eosinophils % (A) 3 %; HCT 25.3 % (34.0-46.0); Hypochromasia Slight; Lymphocytes # (A) 1.1 k/uL (1.0-4.8); Lymphocytes % (A) 19 %; MCH 30.4 pg (25.0-35.0); MCHC 31.6 g/dL (31.0-37.0); MCV 96.4 fL (80.0-100.0); Mean Platelet Volume 10.5; Monocytes # (A) 0.2 k/uL (0-1.0); Monocytes % (A) 4 %; Neutrophils % (A) 71 %; Platelet Count 217 k/uL (150-450); RBC 2.62 m/uL (3.80-5.40); WBC 5.6 k/uL (3.8-10.6)
[2022-09-22 16:09] LABS: % Iron Saturation 18.48 (12.00-45.00); ALT 17 U/L (8-44); AST 23 U/L (13-35); Albumin 3.5 d/dL (3.8-4.9); Albumin/Globulin Ratio 0.95 Ratio (1.60-3.17); Alkaline Phosphatase 158 U/L (41-126); BUN/Creat Ratio 16.74 Ratio (12.00-20.00); Blood Urea Nitrogen 65.3 mg/dL (9.0-27.0); Calcium 8.6 mg/dL (8.7-10.3); Carbon Dioxide 25.1 mmol/L (21.6-31.8); Chloride 99 mmol/L (96-109); Globulin 3.7 d/dL (1.6-3.3); Glucose 142 mg/dL (70-110); Iron 51 UG/DL (50-170); Magnesium 2.5 mg/dL (1.5-2.4); Phosphorus 5.6 mg/dL (2.4-5.1); Potassium 5.4 mmol/L (3.5-5.5); Sodium 136 mmol/L (135-145); Total Bilirubin 0.2 mg/dL (0.3-1.2); Total Iron Binding Capacity 276 UG/DL (228-460); Total Protein 7.2 d/dL (6.2-8.2)
== END | disposition home or self-care (01) ==
LOC: LABWHC1 10:24
PROVIDERS: ATTEND Internal Medicine
DX: E55.9 Vitamin D deficiency, unspecified (principal); D63.1 Anemia in chronic kidney disease; N25.81 Secondary hyperparathyroidism of renal origin; N18.31 Chronic kidney disease, stage 3a
CPT/HCPCS: 36415; 80053; 82306; 82728; 83540; 83550; 83735; 83970; 84100; 85025

== ENCOUNTER 2022-10-19 08:11 | Inpatient (IN) | payer MEDICARE, BC ==
--- NOTE | 2022-10-19 08:53 | ED ---
General Adult HPI - General Chief complaint: Weakness Stated complaint: weakness Time Seen by Provider: 10/19/22 08:20 Source: patient, RN notes reviewed, old records reviewed Mode of arrival: ambulatory Limitations: no limitations - History of Present Illness Initial comments: This is a 82-year-old female presents emergency room complaining that she's twice had blood in her urine. Patient states she has a history of renal failure and she is scheduled to get on dialysis in the near future. Patient states this morning she had blood and urine but she did not experience any pain or urinary frequency in fact she stated that she had decreased amount of urine today. Patient denies any back pain. Patient denies any fever chills per patient denies any nausea vomiting. Patient denies any chest pain difficulty breathing first breath per patient has a bruise on her forehead and when I asked her about the pros she states she hit it with against a cabinet in the kitchen a week ago and family states they have not noticed any changes in her mental status since that time. Patient does not complain of any headache. - Related Data Home Medications Medication Instructions Recorded Confirmed Albuterol Inhaler [Ventolin Hfa 2 puff INHALATION RT-Q4H PRN 06/19/21 10/13/22 Inhaler] Levothyroxine Sodium [Synthroid] 88 mcg PO DAILY 06/19/21 10/13/22 Omeprazole 40 mg PO DAILY 06/19/21 10/13/22 Tamsulosin [Flomax] 0.4 mg PO DAILY 02/03/22 10/13/22 Hyoscyamine Sulfate [Levsin] 0.125 mg PO TID PRN 07/08/22 10/13/22 Aspirin EC [Ecotrin Low Dose] 81 mg PO DAILY 07/28/22 10/13/22 Loratadine [Claritin] 10 mg PO DAILY PRN 07/28/22 10/13/22 Mirabegron [Myrbetriq] 25 mg PO DAILY 07/28/22 10/13/22 polyethylene glycoL 3350 [Miralax] 17 gm PO DAILY 08/19/22 10/13/22 Atorvastatin [Lipitor] 40 mg PO HS 09/08/22 10/13/22 polyethylene glycoL 3350 [Miralax] 17 gm PO DAILY PRN 09/08/22 10/13/22 Sodium Zirconium Cyclosilicate 10 gm PO DAILY 09/22/22 10/13/22 [Lokelma] Previous Rx's Medication Instructions Recorded HYDROcodone/APAP 7.5-325MG [[place] 1 tab PO Q6HR PRN #7 tab 08/25/22 7.5-325] Pregabalin [Lyrica] 25 mg PO DAILY #3 cap 08/25/22 Pregabalin [Lyrica] 50 mg PO HS #3 cap 08/25/22 Ferrous Sulfate [Iron (65 MG 325 mg PO DAILY 30 Days #30 tab 09/11/22 Elemental)] Sodium Bicarbonate Tab 650 mg PO BID 30 Days #60 tab 09/11/22 Allergies Allergy/AdvReac Type Severity Reaction Status Date / Time Penicillins Allergy Swelling Verified 10/19/22 08:17 Sulfa (Sulfonamide Allergy Unknown Verified 10/19/22 08:17 Antibiotics) clindamycin AdvReac Nausea & Verified 10/19/22 08:17 Vomiting morphine AdvReac Nausea & Verified 10/19/22 08:17 Vomiting Review of Systems ROS Statement: Those systems with pertinent positive or pertinent negative responses have been documented in the HPI. ROS Other: All systems not noted in ROS Statement are negative. Past Medical History Past Medical History: Diabetes Mellitus, Hypertension, Renal Disease Additional Past Medical History / Comment(s): Type2, hypothyroidism, chronic back/neck pain, fibromyalgia History of Any Multi-Drug Resistant Organisms: None Reported Past Surgical History: Unable to Obtain Additional Past Surgical History / Comment(s): neck surgery, c-spine surgery, heart valve replacement Past Anesthesia/Blood Transfusion Reactions: No Reported Reaction Past Psychological History: No Psychological Hx Reported Smoking Status: Never smoker Past Alcohol Use History: None Reported Past Drug Use History: None Reported - Past Family History Family Family Medical History: No Reported History General Exam - General Exam Comments Initial Comments: GENERAL: Patient is well-developed and well-nourished. Patient is nontoxic and well- hydrated and is in no acute distress. ENT: Neck is soft and supple. No significant lymphadenopathy is noted. Oropharynx is clear. Moist mucous membranes. Neck has full range of motion without eliciting any pain. EYES: The sclera were anicteric and conjunctiva were pink and moist. Extraocular movements were intact and pupils were equal round and reactive to light. Eyelids were unremarkable. PULMONARY: Unlabored respirations. Good breath sounds bilaterally. No audible rales rhonchi or wheezing was noted. CARDIOVASCULAR: There is a regular rate and rhythm without any murmurs gallops or rubs. ABDOMEN: Very minimal right flank tenderness no rebound SKIN: Skin is clear with no lesions or rashes and otherwise unremarkable. NEUROLOGIC: Patient is alert and oriented x3. Cranial nerves II through XII are grossly i ntact. Motor and sensory are also intact. Normal speech, volume and content. Symmetrical smile. MUSCULOSKELETAL: Normal extremities with adequate strength and full range of motion. LYMPHATICS: No significant lymphadenopathy is noted PSYCHIATRIC: Normal psychiatric evaluation. Limitations: no limitations Course Vital Signs 10/19/22 10/19/22 10/19/22 08:12 08:35 09:50 Temperature 98 F Pulse Rate 59 L 56 L 60 Respiratory 18 16 14 Rate Blood Pressure 127/49 129/52 134/57 O2 Sat by Pulse 99 99 Oximetry Medical Decision Making - Medical Decision Making EKG was interpreted by myself shows sinus bradycardia 56 bpm [place] interval is 255 QRS is 219 QT intervals 503 QTC is 525. Patient's EKG shows a left bundle branch block. Was pt. sent in by a medical professional or institution (, PA, SLOT SHIFT SUPERVISOR, urgent care, hospital, or alf...) When possible be specific @ -No Did you speak to anyone other than the patient for history (EMS, parent, family, police, friend...)? What history was obtained from this source @ -No Did you review nursing and triage notes (agree or disagree)? Why? @ -I reviewed and agree with nursing and triage notes Were old charts reviewed (outside hosp., previous admission, EMS record, old EKG, old radiological studies, urgent care reports/EKG's, alf records)? Report findings @ -I reviewed prior lab work from prior charts of this patient Differential Diagnosis (chest pain, altered mental status, abdominal pain women, abdominal pain men, vaginal bleeding, weakness, fever, dyspnea, syncope, headache, dizziness, GI bleed, back pain, seizure, CVA, palpatations, mental health, musculoskeletal)? @ -Differential Weakness: Hypoglycemia, shock, sepsis, hyponatremia, anemia, infection, [place], ETOH, adverse medicine reaction, overdose, stroke, this is not meant to be an all-inclusive list. EKG interpreted by me (3pts min.). @ -As above X-rays interpreted by me (1pt min.). @ -Chest x-ray shows no acute abnormality. CT interpreted by me (1pt min.). @ -None done U/S interpreted by me (1pt. min.). @ -None done What testing was considered but not performed or refused? (CT, X-rays, U/S, labs)? Why? @ -None What meds were considered but not given or refused? Why? @ -None Did you discuss the management of the patient with other professionals (professionals i.e. , PA, SLOT SHIFT SUPERVISOR, lab, RT, psych nurse, social work administrator, copper roller handler printing, teacher, lead security officer, case liner)? Give summary @ -I spoke with some physicians he agreed to admit the patient Was smoking cessation discussed for >3mins.? @ -No Was critical care preformed (if so, how long)? @ -No Were there social determinants of health that impacted care today? How? (Homelessness, low income, unemployed, alcoholism, drug addiction, transportation, low edu. Level, literacy, decrease access to med. care, [place] [facility], rehab)? @ -No Was there de-escalation of care discussed even if they declined (Discuss DNR or withdrawal of care, Hospice)? DNR status @ -No What co-morbidities impacted this encounter? (DM, HTN, Smoking, COPD, CAD, Cancer, CVA, ARF, Chemo, Hep., AIDS, mental health diagnosis, sleep apnea, morbid obesity)? @ -None Was patient admitted / discharged? Hospital course, mention meds given and route, prescriptions, significant lab abnormalities, going to OR and other pertinent info. @ -Patient had lab work done and a urinalysis done as well as a chest x-ray. Chest x-ray showed no acute abnormality. Patient had low potassium which I replaced with KCl and oral potassium. Patient also had a low sodium slightly give the patient a fluid bolus. Patient also urinary tract infection I started the patient advised that I consulted nephrology because of her chronic renal failure. Undiagnosed new problem with uncertain prognosis? @ -No Drug Therapy requiring intensive monitoring for toxicity (Heparin, Nitro, Insulin, Cardizem)? @ -No Were any procedures done? @ -No Diagnosis/symptom? @ -Urinary tract infection Acute, or Chronic, or Acute on Chronic? @ -Acute Uncomplicated (without systemic symptoms) or Complicated (systemic symptoms)? @ -Complicated Side effects of treatment? @ -No Exacerbation, Progression, or Severe Exacerbation? @ -No Poses a threat to life or bodily function? How? (Chest pain, [place], [place], pneumonia, PE, COPD, DKA, ARF, appy, cholecystitis, CVA, Diverticulitis, Homicidal, Suicidal, threat to staff... and all critical care pts) @ -Yes this could lead to sepsis and end organ dysfunction Diagnosis/symptom? @ -Hyponatremia Acute, or Chronic, or Acute on Chronic? @ -Acute Uncomplicated (without systemic symptoms) or Complicated (systemic symptoms)? @ -Complicated Side effects of treatment? @ -none Exacerbation, Progression, or Severe Exacerbation] @ -no Poses a threat to life or bodily function? @ -No Diagnosis/symptom? @ -Hypokalemia Acute, or Chronic, or Acute on Chronic? @ -Acute Uncomplicated (without systemic symptoms) or Complicated (systemic symptoms)? @ -Complicated Side effects of treatment? @ -none Exacerbation, Progression, or Severe Exacerbation] @ -no Poses a threat to life or bodily function? @ -Yes this could lead to cardiac arrhythmias Diagnosis/symptom? @ -Renal failure Acute, or Chronic, or Acute on Chronic? @ -Chronic Uncomplicated (without systemic symptoms) or Complicated (systemic symptoms)? @ -Complicated Side effects of treatment? @ -none Exacerbation, Progression, or Severe Exacerbation] @ -no Poses a threat to life or bodily function? @ -Yes this can lead to altered abnormalities and cardiac arrhythmias and possibly - Lab Data Result diagrams: 10/19/22 08:55 10/19/22 08:55 Lab Results 10/19/22 10/19/22 10/19/22 Range/Units 08:55 08:55 08:55 WBC 7.1 (3.8-10.6) k/uL RBC 2.68 L (3.80-5.40) m/uL Hgb 8.4 L (11.4-16.0) gm/dL Hct 24.6 L (34.0-46.0) % MCV 91.8 (80.0-100.0) fL MCH 31.4 (25.0-35.0) pg MCHC 34.2 (31.0-37.0) g/dL RDW 15.7 H (11.5-15.5) % Plt Count 174 (150-450) k/uL MPV 9.7 Neutrophils % 76 % Lymphocytes % 13 % Monocytes % 7 % Eosinophils % 2 % Basophils % 0 % Neutrophils # 5.4 (1.3-7.7) k/uL Lymphocytes # 0.9 L (1.0-4.8) k/uL Monocytes # 0.5 (0-1.0) k/uL Eosinophils # 0.2 (0-0.7) k/uL Basophils # 0.0 (0-0.2) k/uL PT 11.3 (9.0-12.0) sec INR 1.1 (<1.2) APTT 26.7 (22.0-30.0) sec Sodium 122 L (137-145) mmol/L Potassium 3.0 L (3.5-5.1) mmol/L Chloride 82 L (98-107) mmol/L Carbon Dioxide 31 H (22-30) mmol/L Anion Gap 9 mmol/L BUN 47 H (7-17) mg/dL Creatinine 3.56 H (0.52-1.04) mg/dL Est GFR (CKD-EPI)AfAm 13 (>60 ml/min/1.73 sqM) Est GFR (CKD-EPI)NonAf 12 (>60 ml/min/1.73 sqM) Glucose 109 H (74-99) mg/dL Plasma Lactic Acid R[place] (0.7-2.0) mmol/L Calcium 8.3 L (8.4-10.2) mg/dL Magnesium 2.4 H (1.6-2.3) mg/dL Total Bilirubin 0.8 (0.2-1.3) mg/dL AST 29 (14-36) U/L ALT 14 (4-34) U/L Alkaline Phosphatase 106 (38-126) U/L Total Protein 7.0 (6.3-8.2) g/dL Albumin 3.5 (3.5-5.0) g/dL TSH 1.030 (0.465-4.680) mIU/L Urine Color Urine Appearance (Clear) Urine pH (5.0-8.0) Ur Specific [place] (1.001-1.035) Urine Protein (Negative) Urine Glucose (UA) (Negative) Urine Ketones (Negative) Urine Blood (Negative) Urine Nitrite (Negative) Urine Bilirubin (Negative) Urine Urobilinogen (<2.0) mg/dL Ur Leukocyte Esterase (Negative) Urine RBC (0-5) /hpf Urine WBC (0-5) /hpf Urine WBC Clumps (None) /hpf Urine Bacteria (None) /hpf 10/19/22 10/19/22 Range/Units 08:55 10:55 WBC (3.8-10.6) k/uL RBC (3.80-5.40) m/uL Hgb (11.4-16.0) gm/dL Hct (34.0-46.0) % MCV (80.0-100.0) fL MCH (25.0-35.0) pg MCHC (31.0-37.0) g/dL RDW (11.5-15.5) % Plt Count (150-450) k/uL MPV Neutrophils % % Lymphocytes % % Monocytes % % Eosinophils % % Basophils % % Neutrophils # (1.3-7.7) k/uL Lymphocytes # (1.0-4.8) k/uL Monocytes # (0-1.0) k/uL Eosinophils # (0-0.7) k/uL Basophils # (0-0.2) k/uL PT (9.0-12.0) sec INR (<1.2) APTT (22.0-30.0) sec Sodium (137-145) mmol/L Potassium (3.5-5.1) mmol/L Chloride (98-107) mmol/L Carbon Dioxide (22-30) mmol/L Anion Gap mmol/L BUN (7-17) mg/dL Creatinine (0.52-1.04) mg/dL Est GFR (CKD-EPI)AfAm (>60 ml/min/1.73 sqM) Est GFR (CKD-EPI)NonAf (>60 ml/min/1.73 sqM) Glucose (74-99) mg/dL Plasma Lactic Acid [place] 0.8 (0.7-2.0) mmol/L Calcium (8.4-10.2) mg/dL Magnesium (1.6-2.3) mg/dL Total Bilirubin (0.2-1.3) mg/dL AST (14-36) U/L ALT (4-34) U/L Alkaline Phosphatase (38-126) U/L Total Protein (6.3-8.2) g/dL Albumin (3.5-5.0) g/dL TSH (0.465-4.680) mIU/L Urine Color Light Red Urine Appearance Cloudy H (Clear) Urine pH 7.5 (5.0-8.0) Ur Specific [place] 1.013 (1.001-1.035) Urine Protein 2+ H (Negative) Urine Glucose (UA) Negative (Negative) Urine Ketones Negative (Negative) Urine Blood Large H (Negative) Urine Nitrite Negative (Negative) Urine Bilirubin Negative (Negative) Urine Urobilinogen <2.0 (<2.0) mg/dL Ur Leukocyte Esterase Large H (Negative) Urine RBC >182 H (0-5) /hpf Urine WBC >182 H (0-5) /hpf Urine WBC Clumps Occasional H (None) /hpf Urine Bacteria Few H (None) /hpf Disposition Clinical Impression: Urinary tract infection, Hyponatremia, Hypokalemia, Renal failure Disposition: ADMITTED IP TO THIS HOSP Referrals: Naeem Herr MD [Primary Care Provider] - 1-2 days Time of Disposition: 13:09
[2022-10-19 09:06] LABS: Basophils % (A) 0 %; Eosinophils # (A) 0.2 k/uL (0-0.7); Eosinophils % (A) 2 %; HCT 24.6 % (34.0-46.0); HGB 8.4 gm/dL (11.4-16.0); Lymphocytes # (A) 0.9 k/uL (1.0-4.8); Lymphocytes % (A) 13 %; MCH 31.4 pg (25.0-35.0); MCHC 34.2 g/dL (31.0-37.0); MCV 91.8 fL (80.0-100.0); Mean Platelet Volume 9.7; Monocytes # (A) 0.5 k/uL (0-1.0); Monocytes % (A) 7 %; Neutrophils # (A) 5.4 k/uL (1.3-7.7); Neutrophils % (A) 76 %; Platelet Count 174 k/uL (150-450); RBC 2.68 m/uL (3.80-5.40); RDW 15.7 % (11.5-15.5); WBC 7.1 k/uL (3.8-10.6)
[2022-10-19 09:15] LABS: INR 1.1 (<1.2); Partial Thromboplastin Time 26.7 sec (22.0-30.0); Prothrombin Time 11.3 sec (9.0-12.0)
[2022-10-19 09:17] LABS: ALT 14 U/L (4-34); AST 29 U/L (14-36); African American GFR (CKD) 13 (>60 ml/min/1.73 sqM); Albumin 3.5 g/dL (3.5-5.0); Alkaline Phosphatase 106 U/L (38-126); Anion Gap 9 mmol/L; Blood Urea Nitrogen 47 mg/dL (7-17); Calcium 8.3 mg/dL (8.4-10.2); Carbon Dioxide 31 mmol/L (22-30); Chloride 82 mmol/L (98-107); Glucose 109 mg/dL (74-99); Magnesium 2.4 mg/dL (1.6-2.3); Non-African American GFR(CKD) 12 (>60 ml/min/1.73 sqM); Sodium 122 mmol/L (137-145); Total Bilirubin 0.8 mg/dL (0.2-1.3)
--- NOTE | 2022-10-19 09:17 | XR ---
EXAMINATION TYPE: XR chest 2V DATE OF EXAM: 10/19/2022 9:06 AM COMPARISON: Chest radiographs from 08/22/2022 TECHNIQUE: XR chest 2V Frontal and lateral views of the chest. CLINICAL INDICATION:Female, 82 years old with history of Weakness; FINDINGS: Lungs/Pleura: There is no evidence of pleural effusion, focal consolidation, or pneumothorax. Chronic senescent parenchymal change. Pulmonary vascularity: Unremarkable. Heart/mediastinum: Cardiomediastinal silhouette is enlarged and stable. Atherosclerotic calcification s are seen in the aorta. Previous aortic valve surgery noted. Musculoskeletal: No acute osseous pathology. Cervical fusion hardware. IMPRESSION: Chronic changes without evidence for acute process. No significant change from prior exam.
[2022-10-19 11:57] LABS: Appearance,Urine Cloudy (Clear); Bacteria,Urine Few /hpf; Bilirubin,Urine Negative (Negative); Blood,Urine Large (Negative); Color,Urine Light Red; Glucose,Urine (UA) Negative (Negative); Ketones,Urine Negative (Negative); Leukocyte Esterase,Urine Large (Negative); Nitrite,Urine Negative (Negative); PH, Urine 7.5 (5.0-8.0); Protein,Urine 2+ (Negative); RBC,Urine >182 /hpf (0-5); Specific Gravity,Urine 1.013 (1.001-1.035); Urobilinogen,Urine <2.0 mg/dL (<2.0); WBC,Urine >182 /hpf (0-5)
[2022-10-19] MEDS ORDERED: cefTRIAXone IN SWFI 1,000 MG/10 ML SYRINGE IVP STA ×2 (12:06→12:07)
[2022-10-19] MEDS ORDERED: POTASSIUM CHLORIDE 20 MEQ in WATER FOR INJECTION 1 100ML.BAG IVPB STA (12:41)
[2022-10-19] MEDS ORDERED: SODIUM CHLORIDE 0.9% 500 ML 500 ML IV ONE (12:41)
[2022-10-19] MEDS ORDERED: POTASSIUM CHLORIDE ER 20 MEQ TAB.ER PO STA (13:11)
[2022-10-19] MEDS ORDERED: LORATADINE 10 MG TAB PO PRN (14:36)
[2022-10-19] MEDS ORDERED: polyethylene glycoL 3350 17 GM POWD.PACK PO PRN (14:36)
--- NOTE | 2022-10-19 14:53 | P.HPIM ---
History of Present Illness H&P Date: 10/19/22 82-year-old female with PMH stage IV chronic kidney disease, chronic lower back pain, hypothyroidism, GERD, history of ureteral stent placed on 08/18 for ureteral obstruction complicated by UTI presents to the ED for hematuria and unsteadiness. She is currently in the process of vein mapping to initiate HD. 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 Patient reports hematuria over the past 3 days. She denies any dysuira. She dose report some suprapubic discomfort. Two weeks ago, she bumped her head on her cabinet door which led to bruising over her right forehead. She denies any loss of consciousness. She denies any headache, lower extremity edema, nausea vomiting, fever or chills, cough, chest pain, shortness of breath, palpitations, changes in bowel habits. No changes in appetite or weight. She denies any numbness/weakness/tingling of the extremities. In the ED, her vital signs were stable. CBC showed hemoglobin of 8.4. CMP showed sodium of 122, potassium of 3, chloride of 82, bicarb of 31, BUN of 47, creatinine of 3.56, glucose 109 and calcium of 8.3. Magnesium was 2.4. TSH 1.03. Urinalysis showed 2+ protein, large blood, large leukocyte esterase. EKG showed sinus bradycardia with left bundle branch block, ventricular rate of 56. Chest x-ray showed no acute process. General: non toxic, no distress, appears at stated age Derm: warm, dry Head: atraumatic, normocephalic, symmetric, bruise over the R forehead which appears to be old and healing Eyes: EOMI, no lid lag, anicteric sclera Mouth: no lip lesion, mucus membranes moist Cardiovascular: S1S2 reg, systolic murmur Lungs: CTA bilateral, no rhonchi, no rales , no accessory muscle use Abdominal: soft, suprapubic tenderness without rebound, no guarding, no appreciable organomegaly Ext: no gross muscle atrophy, no edema, no contractures Neuro: no focal neuro deficits Psych: Alert, oriented, appropriate affect Hematuria likely related to UTI Hyponatremia Hypokalemia Acute kidney injury on chronic kidney disease stage IV Chronic conditions: Chronic lower back pain, hypothyroidism, GERD, history of ureteral stent placed on 08/18 for ureteral obstruction Based on my assessment of this patient, this patient meets a high complexity level of care. Patient has an acute diagnosis of hematuria likely related to UTI that poses a threat to life or bodily function. She also have electrolyte derangements inc luding hypoNa and hypoK. Patient be started on Rocephin 1 g IV daily. Urine and blood culture will be collected. Start normal saline at 100 cc/hr. Hold ASA due to acute blood loss. Potassium replace with potassium chloride 40 mEq by mouth and 20 mEq IV. Discontinue Lokelma. Nephrology consulted for further management of this patient. SCDs for DVT prophylaxis. NO CODE. I have reviewed the following hearing consultant notes: I have reviewed the results of the following tests: CBC, CMP, magnesium, TSH, urinalysis, chest x-ray. I have ordered the following tests: Urine culture. Blood culture. CBC. BMP. I have discussed the care of this patient with the following independent historian: Case was discussed with the son at bedside. I have independently interpreted the following test below: EKG as above. I have discussed the management of this patient with the following physician: Case discussed extensively with the ED physician. Past Medical History Past Medical History: Diabetes Mellitus, Hypertension, Renal Disease Additional Past Medical History / Comment(s): Type2, hypothyroidism, chronic back/neck pain, fibromyalgia History of Any Multi-Drug Resistant Organisms: None Reported Past Surgical History: Unable to Obtain Additional Past Surgical History / Comment(s): neck surgery, c-spine surgery, heart valve replacement Past Anesthesia/Blood Transfusion Reactions: No Reported Reaction Past Psychological History: No Psychological Hx Reported Smoking Status: Never smoker Past Alcohol Use History: None Reported Past Drug Use History: None Reported - Past Family History Family Family Medical History: No Reported History Medications and Allergies Home Medications Medication Instructions Recorded Confirmed Type Albuterol Inhaler [Ventolin Hfa 2 puff INHALATION RT-Q4H PRN 06/19/21 10/19/22 History Inhaler] Levothyroxine Sodium [Synthroid] 88 mcg PO DAILY 06/19/21 10/19/22 History Omeprazole 40 mg PO DAILY 06/19/21 10/19/22 History Tamsulosin [Flomax] 0.4 mg PO DAILY 02/03/22 10/19/22 History Hyoscyamine Sulfate [Levsin] 0.125 mg PO TID PRN 07/08/22 10/19/22 History Aspirin EC [Ecotrin Low Dose] 81 mg PO DAILY 07/28/22 10/19/22 History Loratadine [Claritin] 10 mg PO DAILY PRN 07/28/22 10/19/22 History polyethylene glycoL 3350 [Miralax] 17 gm PO DAILY 08/19/22 10/19/22 History HYDROcodone/APAP 7.5-325MG [[place] 1 tab PO Q6HR PRN #7 tab 08/25/22 10/19/22 Rx 7.5-325] Pregabalin [Lyrica] 25 mg PO DAILY #3 cap 08/25/22 10/19/22 Rx Pregabalin [Lyrica] 50 mg PO HS #3 cap 08/25/22 10/19/22 Rx Atorvastatin [Lipitor] 40 mg PO HS 09/08/22 10/19/22 History polyethylene glycoL 3350 [Miralax] 17 gm PO DAILY PRN 09/08/22 10/19/22 History Ferrous Sulfate [Iron (65 MG 325 mg PO DAILY 30 Days #30 tab 09/11/22 10/19/22 Rx Elemental)] Sodium Bicarbonate Tab 650 mg PO BID 30 Days #60 tab 09/11/22 10/19/22 Rx Sodium Zirconium Cyclosilicate 10 gm PO DAILY 09/22/22 10/19/22 History [Lokelma] Darbepoetin Mathieu [Aranesp] 200 mcg SQ MO 10/19/22 10/19/22 History Fluticasone Nasal [place] [Flonase 1 spr EA NOSTRIL BID 10/19/22 10/19/22 History Nasal [place]] Fluticasone Propionate 110 Mcg 2 puff INHALATION RT-BID 10/19/22 10/19/22 History [Flovent 110 Mcg Inhaler] Mirabegron [Myrbetriq] 50 mg PO DAILY 10/19/22 10/19/22 History Multivitamins, Thera [Multivitamin 1 tab PO DAILY 10/19/22 10/19/22 History (formulary)] Mupirocin 2% Oint [Bactroban 2% 1 applic TOPICAL TID 10/19/22 10/19/22 History Oint] Triamcinolone 0.1% Cream [Kenalog 1 applic TOPICAL BID PRN 10/19/22 10/19/22 History 0.1% Cream] Allergies Allergy/AdvReac Type Severity Reaction Status Date / Time Penicillins Allergy Swelling Verified 10/19/22 08:17 Sulfa (Sulfonamide Allergy Unknown Verified 10/19/22 08:17 Antibiotics) clindamycin AdvReac Nausea & Verified 10/19/22 08:17 Vomiting morphine AdvReac Nausea & Verified 10/19/22 08:17 Vomiting Physical Exam Vitals: Vital Signs Temp Pulse Resp BP Pulse Ox 10/19/22 13:19 62 18 138/52 10/19/22 09:50 60 14 134/57 10/19/22 08:35 56 L 16 129/52 99 10/19/22 08:12 98 F 59 L 18 127/49 99 Intake and Output 10/18/22 10/19/22 10/19/22 22:59 06:59 14:59 Other: Voiding Method External Catheter Weight 76.657 kg Results CBC & Chem 7: 10/19/22 08:55 10/19/22 08:55 Labs: Abnormal Lab Results - Last 24 Hours (Table) 10/19/22 10/19/22 10/19/22 Range/Units 08:55 08:55 10:55 RBC 2.68 L (3.80-5.40) m/uL Hgb 8.4 L (11.4-16.0) gm/dL Hct 24.6 L (34.0-46.0) % RDW 15.7 H (11.5-15.5) % Lymphocytes # 0.9 L (1.0-4.8) k/uL Sodium 122 L (137-145) mmol/L Potassium 3.0 L (3.5-5.1) mmol/L Chloride 82 L (98-107) mmol/L Carbon Dioxide 31 H (22-30) mmol/L BUN 47 H (7-17) mg/dL Creatinine 3.56 H (0.52-1.04) mg/dL Glucose 109 H (74-99) mg/dL Calcium 8.3 L (8.4-10.2) mg/dL Magnesium 2.4 H (1.6-2.3) mg/dL Urine Appearance Cloudy H (Clear) Urine Protein 2+ H (Negative) Urine Blood Large H (Negative) Ur Leukocyte Esterase Large H (Negative) Urine RBC >182 H (0-5) /hpf Urine WBC >182 H (0-5) /hpf Urine WBC Clumps Occasional H (None) /hpf Urine Bacteria Few H (None) /hpf
[2022-10-19] MEDS: HYDROcodone/APAP 7.5-325MG 1 EACH TAB PO SCH ×3 (15:43→20:34)
[2022-10-19] MEDS: SODIUM CHLORIDE 0.9% 1,000 ML IV SCH (15:45)
[2022-10-19 16:46] LABS: Glucose,Whole Blood 126 mg/dL (70-110)
[2022-10-19 19:54] LABS: Glucose,Whole Blood 116 mg/dL (70-110)
[2022-10-19] MEDS: SODIUM BICARBONATE TAB 650 MG TAB PO SCH (20:32)
[2022-10-19] MEDS: ATORVASTATIN 40 MG TAB PO SCH (20:32)
[2022-10-19] MEDS: PREGABALIN 50 MG CAP PO SCH (20:32)
[2022-10-20 05:46] LABS: Glucose,Whole Blood 122 mg/dL (70-110)
[2022-10-20] MEDS: LEVOTHYROXINE 88 MCG TAB PO SCH (05:54)
[2022-10-20] MEDS: HYDROcodone/APAP 7.5-325MG 1 EACH TAB PO SCH ×4 (05:54→23:48)
[2022-10-20] MEDS: PATIENT'S OWN (Mirabegron [Myrbetriq] 50 MG Tab.Er.24h) PO SCH (08:14)
[2022-10-20] MEDS: FERROUS SULFATE 325 MG TAB PO SCH (08:18)
[2022-10-20] MEDS: SODIUM BICARBONATE TAB 650 MG TAB PO SCH ×2 (08:18→21:03)
[2022-10-20] MEDS: PREGABALIN 25 MG CAP PO SCH (08:18)
[2022-10-20] MEDS: TAMSULOSIN 0.4 MG CAP.ER.24H PO SCH (08:18)
[2022-10-20] MEDS: PANTOPRAZOLE 40 MG TABLET PO SCH (08:18)
[2022-10-20 08:23] LABS: HCT 26.2 % (34.0-46.0); HGB 8.4 gm/dL (11.4-16.0); MCH 30.4 pg (25.0-35.0); MCV 94.8 fL (80.0-100.0); Mean Platelet Volume 9.9; Platelet Count 202 k/uL (150-450); RBC 2.77 m/uL (3.80-5.40); RDW 15.7 % (11.5-15.5); WBC 8.3 k/uL (3.8-10.6)
[2022-10-20 08:41] LABS: African American GFR (CKD) 13 (>60 ml/min/1.73 sqM); Anion Gap 9 mmol/L; Blood Urea Nitrogen 44 mg/dL (7-17); Calcium 8.1 mg/dL (8.4-10.2); Carbon Dioxide 27 mmol/L (22-30); Chloride 86 mmol/L (98-107); Glucose 122 mg/dL (74-99); Non-African American GFR(CKD) 11 (>60 ml/min/1.73 sqM); Potassium 3.6 mmol/L (3.5-5.1); Sodium 122 mmol/L (137-145)
[2022-10-20] MEDS ORDERED: POTASSIUM CHLORIDE ER 20 MEQ TAB.ER PO STA (09:35)
--- NOTE | 2022-10-20 10:23 | P.NPCON ---
History of Present Illness - Reason for Consult acute renal failure, chronic renal failure - History of Present Illness Reason for consultation: Acute kidney injury on chronic kidney disease History of present illness: Patient is a 82-year-old female seen in consultation for acute kidney injury on chronic kidney disease. Patient has chronic kidney disease stage IV with baseline creatinine near 3 secondary to diabetic kidney disease and obstructive uropathy. Patient has a right ureteral stent secondary to hydronephrosis. She also has history of congestive heart failure with ejection fraction of 40-45%. Patient came to the hospital due to gross hematuria. She is currently on antibiotics for UTI. Patient states she was also feeling weak and dizzy at home. She's currently receiving IV fluids. She is not on any diuretics. Denies edema. No vomiting or diarrhea. No chest pain or shortness of breath. States sodium level is stable at 122 this morning. Potassium was replaced and is better. Hemodynamically stable. She has been voiding. Vital signs are stable. General: No acute distress. HEENT: Head exam is unremarkable. LUNGS: No audible rhonchi or wheezes. HEART: Rate and Rhythm are regular. ABDOMEN: Nontender. Obese. EXTREMITITES: No edema. Past Medical History Past Medical History: Diabetes Mellitus, Hypertension, Renal Disease Additional Past Medical History / Comment(s): Type2, hypothyroidism, chronic back/neck pain, fibromyalgia History of Any Multi-Drug Resistant Organisms: None Reported Past Surgical History: Unable to Obtain Additional Past Surgical History / Comment(s): neck surgery, c-spine surgery, heart valve replacement Past Anesthesia/Blood Transfusion Reactions: No Reported Reaction Smoking Status: Never smoker - Past Family History Family Family Medical History: No Reported History Medications and Allergies Home Medications Medication Instructions Recorded Confirmed Type Albuterol Inhaler [Ventolin Hfa 2 puff INHALATION RT-Q4H PRN 06/19/21 10/19/22 History Inhaler] Levothyroxine Sodium [Synthroid] 88 mcg PO DAILY 06/19/21 10/19/22 History Omeprazole 40 mg PO DAILY 06/19/21 10/19/22 History Tamsulosin [Flomax] 0.4 mg PO DAILY 02/03/22 10/19/22 History Hyoscyamine Sulfate [Levsin] 0.125 mg PO TID PRN 07/08/22 10/19/22 History Aspirin EC [Ecotrin Low Dose] 81 mg PO DAILY 07/28/22 10/19/22 History Loratadine [Claritin] 10 mg PO DAILY PRN 07/28/22 10/19/22 History polyethylene glycoL 3350 [Miralax] 17 gm PO DAILY 08/19/22 10/19/22 History HYDROcodone/APAP 7.5-325MG [[place] 1 tab PO Q6HR PRN #7 tab 08/25/22 10/19/22 Rx 7.5-325] Pregabalin [Lyrica] 25 mg PO DAILY #3 cap 08/25/22 10/19/22 Rx Pregabalin [Lyrica] 50 mg PO HS #3 cap 08/25/22 10/19/22 Rx Atorvastatin [Lipitor] 40 mg PO HS 09/08/22 10/19/22 History polyethylene glycoL 3350 [Miralax] 17 gm PO DAILY PRN 09/08/22 10/19/22 History Ferrous Sulfate [Iron (65 MG 325 mg PO DAILY 30 Days #30 tab 09/11/22 10/19/22 Rx Elemental)] Sodium Bicarbonate Tab 650 mg PO BID 30 Days #60 tab 09/11/22 10/19/22 Rx Sodium Zirconium Cyclosilicate 10 gm PO DAILY 09/22/22 10/19/22 History [Lokelma] Darbepoetin Mathieu [Aranesp] 200 mcg SQ MO 10/19/22 10/19/22 History Fluticasone Nasal [place] [Flonase 1 spr EA NOSTRIL BID 10/19/22 10/19/22 History Nasal [place]] Fluticasone Propionate 110 Mcg 2 puff INHALATION RT-BID 10/19/22 10/19/22 History [Flovent 110 Mcg Inhaler] Mirabegron [Myrbetriq] 50 mg PO DAILY 10/19/22 10/19/22 History Multivitamins, Thera [Multivitamin 1 tab PO DAILY 10/19/22 10/19/22 History (formulary)] Mupirocin 2% Oint [Bactroban 2% 1 applic TOPICAL TID 10/19/22 10/19/22 History Oint] Triamcinolone 0.1% Cream [Kenalog 1 applic TOPICAL BID PRN 10/19/22 10/19/22 History 0.1% Cream] Allergies Allergy/AdvReac Type Severity Reaction Status Date / Time Penicillins Allergy Swelling Verified 10/19/22 08:17 Sulfa (Sulfonamide Allergy Unknown Verified 10/19/22 08:17 Antibiotics) clindamycin AdvReac Nausea & Verified 10/19/22 08:17 Vomiting morphine AdvReac Nausea & Verified 10/19/22 08:17 Vomiting Physical Exam Vitals: Vital Signs Temp Pulse Pulse Resp BP BP Pulse Ox 10/20/22 08:17 98.3 F 58 L 18 102/49 96 10/20/22 04:00 98.0 F 68 18 116/58 95 10/20/22 01:39 65 18 10/20/22 00:00 65 18 121/62 95 10/19/22 20:00 98.2 F 82 18 114/54 96 10/19/22 16:00 18 10/19/22 15:39 62 14 123/43 97 10/19/22 13:19 62 18 138/52 Intake and Output 10/19/22 10/20/22 10/20/22 22:59 06:59 14:59 Intake Total 180 400 118 Output Total 625 Balance 180 -225 118 Intake: Oral 180 400 118 Output: Urine 625 Other: Voiding Method External Catheter External Catheter External Catheter # Voids 1 1 Weight 76.657 kg 59 kg Results - Lab Results Most recent lab results Calcium 8.1 mg/dL (8.4-10.2) L 10/20/22 07:10 Magnesium 2.4 mg/dL (1.6-2.3) H 10/19/22 08:55 10/20/22 07:10 10/20/22 07:10 Assessment and Plan Plan: Assessment: 1. Acute kidney injury secondary to ATN secondary to infection. Also concern for progression of underlying chronic kidney disease. Creatinine 3.7 today. 2. Chronic kidney disease stage IV with baseline creatinine near 3 secondary to diabetic kidney disease. 3. Hyponatremia secondary to acute kidney injury. 4. Hypokalemia from poor intake. Replace. Better. 5. Diabetes mellitus. 6. UTI on antibiotics. 7. Right-sided hydronephrosis status post ureteral stent placement. 8. Anemia of chronic kidney disease. Rule out iron deficiency. Plan: Maintain normal saline. Add 1500 mL fluid restriction. Check iron studies. Add Aranesp. Follow-up cultures. Patient interested in doing in-center hemodialysis. She has appointment with vascular surgery end of the month to schedule AV fistula surgery. Continue to assess daily for need for renal replacement therapy. Thank you for the consultation. I will continue to follow the patient with you during her hospital stay.
[2022-10-20] MEDS ORDERED: DARBEPOETIN ALFA 40 MCG/0.4 ML SYRINGE SQ SCH (11:00)
[2022-10-20 11:26] LABS: Glucose,Whole Blood 146 mg/dL (70-110)
[2022-10-20] MEDS: SODIUM CHLORIDE 0.9% 1,000 ML IV SCH (13:11)
[2022-10-20 14:46] VITALS: BMI 24.5
--- NOTE | 2022-10-20 15:03 | P.PN ---
Subjective Progress Note Date: 10/20/22 82-year-old female with PMH stage IV chronic kidney disease, chronic lower back pain, hypothyroidism, GERD, history of ureteral stent placed on 08/18 for ureteral obstruction complicated by UTI presents to the ED for hematuria and unsteadiness. She is currently in the process of vein mapping to initiate HD. 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 Duke as her Benefits Consultant. Patient reports hematuria over the past 3 days. She denies any dysuira. She dose report some suprapubic discomfort. Two weeks ago, she bumped her head on her cabinet door which led to bruising over her right forehead. She denies any loss of consciousness. She denies any headache, lower extremity edema, nausea vomiting, fever or chills, cough, chest pain, shortness of breath, palpitations, changes in bowel habits. No changes in appetite or weight. She denies any numbness/weakness/tingling of the extremities. In the ED, her vital signs were stable. CBC showed hemoglobin of 8.4. CMP showed sodium of 122, potassium of 3, chloride of 82, bicarb of 31, BUN of 47, creatinine of 3.56, glucose 109 and calcium of 8.3. Magnesium was 2.4. TSH 1.03. Urinalysis showed 2+ protein, large blood, large leukocyte esterase. EKG showed sinus bradycardia with left bundle branch block, ventricular rate of 56. Chest x-ray showed no acute process. 10/20 Patient was seen and examined. Patient reports improvement in her unsteadiness. She reports no complaints today. CBC shows Hg of 8.4. BMP shows Na 122, Cl 86, BUN 44, Cr 3.71, glucose 122 and Ca 8.1. General: non toxic, no distress, appears at stated age Derm: warm, dry Head: atraumatic, normocephalic, symmetric, bruise over the R forehead which appears to be old and healing Eyes: EOMI, no lid lag, anicteric sclera Cardiovascular: S1S2 reg, systolic murmur Lungs: CTA bilateral, no rhonchi, no rales , no accessory muscle use Abdominal: soft, suprapubic tenderness without rebound, no guarding, no appreciable organomegaly Ext: no gross muscle atrophy, no edema, no contractures Neuro: no focal neuro deficits Psych: Alert, oriented, appropriate affect Hematuria likely related to UTI Hyponatremia Acute kidney injury on chronic kidney disease stage IV Resolved: HypoK Chronic conditions: Chronic lower back pain, hypothyroidism, GERD, history of ureteral stent placed on 08/18 for ureteral obstruction Based on my assessment of this patient, this patient meets a high complexity level of care. Patient has an acute diagnosis of hematuria likely related to UTI that poses a threat to life or bodily function. She also have electrolyte derangements including hypoNa and hypoK. Patient be started on Rocephin 1 g IV daily. Urine and blood culture pending. Continue normal saline at 100 cc/hr. Nephrology recommends 1.5L fluid restriction. Hold ASA due to acute blood loss. Nephrology on board and Urology consulted. SCDs for DVT prophylaxis. NO CODE. I have reviewed the following functional consultant notes: Nephrology note reviewed. I have reviewed the results of the following tests: CBC, BMP. I have ordered the following tests: CBC. BMP. Agree with iron studies. Urine and Blood culture pending. I have discussed the care of this patient with the following independent historian: I have independently interpreted the following test below: I have discussed the management of this patient with the following physician: Objective - Vital Signs Vital signs: Vital Signs Temp 97.5 F L 10/20/22 12:00 Pulse 62 10/20/22 12:00 Resp 17 10/20/22 12:00 BP 90/50 10/20/22 12:00 Pulse Ox 92 L 10/20/22 12:00 FiO2 Intake & Output 10/19/22 10/20/22 10/20/22 18:59 06:59 18:59 Intake Total 180 400 118 Output Total 625 400 Balance 180 -225 -282 Weight 76.657 kg 59 kg 59 kg Intake: Oral 180 400 118 Output: Urine 625 400 Other: Voiding Method External Catheter External Catheter External Catheter # Voids 1 1 - Labs CBC & Chem 7: 10/20/22 07:10 10/20/22 07:10 Labs: Abnormal Lab Results - Last 24 Hours (Table) 10/19/22 10/19/22 10/20/22 Range/Units 16:41 19:50 05:44 RBC (3.80-5.40) m/uL Hgb (11.4-16.0) gm/dL Hct (34.0-46.0) % RDW (11.5-15.5) % Sodium (137-145) mmol/L Chloride (98-107) mmol/L BUN (7-17) mg/dL Creatinine (0.52-1.04) mg/dL Glucose (74-99) mg/dL POC Glucose (mg/dL) 126 H 116 H 122 H (70-110) mg/dL Calcium (8.4-10.2) mg/dL 10/20/22 10/20/22 10/20/22 Range/Units 07:10 07:10 11:25 RBC 2.77 L (3.80-5.40) m/uL Hgb 8.4 L (11.4-16.0) gm/dL Hct 26.2 L (34.0-46.0) % RDW 15.7 H (11.5-15.5) % Sodium 122 L (137-145) mmol/L Chloride 86 L (98-107) mmol/L BUN 44 H (7-17) mg/dL Creatinine 3.71 H (0.52-1.04) mg/dL Glucose 122 H (74-99) mg/dL POC Glucose (mg/dL) 146 H (70-110) mg/dL Calcium 8.1 L (8.4-10.2) mg/dL
[2022-10-20 16:07] LABS: Glucose,Whole Blood 124 mg/dL (70-110)
[2022-10-20] MEDS ORDERED: LACTULOSE 20 GM/30 ML CUP PO PRN (16:20)
[2022-10-20] MEDS ORDERED: bisacodyL 10 MG SUPP RECTAL PRN (16:20)
[2022-10-20] MEDS ORDERED: MAGNESIUM HYDROXIDE 2,400 MG/30 ML CUP PO PRN (16:30)
[2022-10-20 19:45] LABS: Glucose,Whole Blood 133 mg/dL (70-110)
[2022-10-20] MEDS: PREGABALIN 50 MG CAP PO SCH (21:03)
[2022-10-20] MEDS: ATORVASTATIN 40 MG TAB PO SCH (21:03)
[2022-10-21 02:54] LABS: % Iron Saturation 7.66 (12.00-45.00)
[2022-10-21 03:23] VITALS: RESP 16
[2022-10-21] MEDS: SODIUM CHLORIDE 0.9% 1,000 ML IV SCH (04:35)
[2022-10-21 04:40] VITALS: TEMP 97.6
[2022-10-21 05:52] LABS: Glucose,Whole Blood 108 mg/dL (70-110)
[2022-10-21] MEDS: HYDROcodone/APAP 7.5-325MG 1 EACH TAB PO SCH ×2 (06:42→11:54)
[2022-10-21] MEDS: LEVOTHYROXINE 88 MCG TAB PO SCH (06:42)
--- NOTE | 2022-10-21 07:13 | P.GSCN ---
History of Present Illness Consult date: 10/20/22 History of present illness: 82 yo female with a complicated urological hstory. She was initially seen for right hydronephrosis. SHe eventually underwent a cysto with retrograde identifying a filling defect in the right distal to mid ureter concerning for malignancy. She underwent two different ureteroscopies with biopsies that were negative for cancer. she was referred to the [facility] where they did the sameand did not identify cancer. they felt this was due to stricture. The patient returned to my care. We discussed treatment options including open repa ir which we electe not to do. She has had a subsequent stent change which only dropped creatinine a little. A follow up ureteoscopy ionly identified scar tissue. She also has chronic interstitial cystitis causing frequency and hematuria. She is in the hospital with a uti. she has had some visual blood Review of Systems All systems: negative - Constitutional Denies fever, Denies weight loss - EENT Eyes: denies blurred vision Ears, nose, mouth and throat: Denies dysphagia - Cardiovascular Denies chest pain, Denies shortness of breath - Respiratory Denies cough, Denies 7 - Gastrointestinal Reports as per HPI - Genitourinary Genitourinary: Denies dysuria, Denies hematuria - Integumentary Denies rash, Denies unusual bruising - Neurological Denies headaches, Denies syncope - Hematologic/Lymphatic Denies easy bleeding, Denies easy bruising Past Medical History Past Medical History: Diabetes Mellitus, Hypertension, Renal Disease Additional Past Medical History / Comment(s): Type2, hypothyroidism, chronic back/neck pain, fibromyalgia History of Any Multi-Drug Resistant Organisms: None Reported Past Surgical History: Unable to Obtain Additional Past Surgical History / Comment(s): neck surgery, c-spine surgery, heart valve replacement Past Anesthesia/Blood Transfusion Reactions: No Reported Reaction Smoking Status: Never smoker - Past Family History Family Family Medical History: No Reported History Medications and Allergies Home Medications Medication Instructions Recorded Confirmed Type Albuterol Inhaler [Ventolin Hfa 2 puff INHALATION RT-Q4H PRN 06/19/21 10/19/22 History Inhaler] Levothyroxine Sodium [Synthroid] 88 mcg PO DAILY 06/19/21 10/19/22 History Omeprazole 40 mg PO DAILY 06/19/21 10/19/22 History Tamsulosin [Flomax] 0.4 mg PO DAILY 02/03/22 10/19/22 History Hyoscyamine Sulfate [Levsin] 0.125 mg PO TID PRN 07/08/22 10/19/22 History Aspirin EC [Ecotrin Low Dose] 81 mg PO DAILY 07/28/22 10/19/22 History Loratadine [Claritin] 10 mg PO DAILY PRN 07/28/22 10/19/22 History polyethylene glycoL 3350 [Miralax] 17 gm PO DAILY 08/19/22 10/19/22 History HYDROcodone/APAP 7.5-325MG [[place] 1 tab PO Q6HR PRN #7 tab 08/25/22 10/19/22 Rx 7.5-325] Pregabalin [Lyrica] 25 mg PO DAILY #3 cap 08/25/22 10/19/22 Rx Pregabalin [Lyrica] 50 mg PO HS #3 cap 08/25/22 10/19/22 Rx Atorvastatin [Lipitor] 40 mg PO HS 09/08/22 10/19/22 History polyethylene glycoL 3350 [Miralax] 17 gm PO DAILY PRN 09/08/22 10/19/22 History Ferrous Sulfate [Iron (65 MG 325 mg PO DAILY 30 Days #30 tab 09/11/22 10/19/22 Rx Elemental)] Sodium Bicarbonate Tab 650 mg PO BID 30 Days #60 tab 09/11/22 10/19/22 Rx Sodium Zirconium Cyclosilicate 10 gm PO DAILY 09/22/22 10/19/22 History [Lokelma] Darbepoetin Mathieu [Aranesp] 200 mcg SQ MO 10/19/22 10/19/22 History Fluticasone Nasal [place] [Flonase 1 spr EA NOSTRIL BID 10/19/22 10/19/22 History Nasal [place]] Fluticasone Propionate 110 Mcg 2 puff INHALATION RT-BID 10/19/22 10/19/22 History [Flovent 110 Mcg Inhaler] Mirabegron [Myrbetriq] 50 mg PO DAILY 10/19/22 10/19/22 History Multivitamins, Thera [Multivitamin 1 tab PO DAILY 10/19/22 10/19/22 History (formulary)] Mupirocin 2% Oint [Bactroban 2% 1 applic TOPICAL TID 10/19/22 10/19/22 History Oint] Triamcinolone 0.1% Cream [Kenalog 1 applic TOPICAL BID PRN 10/19/22 10/19/22 History 0.1% Cream] Allergies Allergy/AdvReac Type Severity Reaction Status Date / Time Penicillins Allergy Swelling Verified 10/19/22 08:17 Sulfa (Sulfonamide Allergy Unknown Verified 10/19/22 08:17 Antibiotics) clindamycin AdvReac Nausea & Verified 10/19/22 08:17 Vomiting morphine AdvReac Nausea & Verified 10/19/22 08:17 Vomiting Surgical - Exam Vital Signs Temp Pulse Resp BP Pulse Ox 98 F 59 L 18 127/49 99 10/19/22 08:12 10/19/22 08:12 10/19/22 08:12 10/19/22 08:12 10/19/22 08:12 - General well developed, well nourished, no distress - Eyes normal ocular movement, no icteric - ENT no hearing loss, no congestion - Neck no masses, trachea midline - Respiratory normal respiratory effort, clear to auscultation - Abdomen Abdomen: soft, non tender, no guarding, no rigid, no rebound - Genitourinary Indwelling catheter with clear urine - Integumentary no rash, no abnormal pigmentation - Neurologic no disoriented, no combative - Psychiatric oriented to time, oriented to person, oriented to place, speech is normal, memory intact Results - Labs 10/20/22 07:10 10/20/22 16:57 Abnormal Lab Results - Last 24 Hours (Table) 10/19/22 10/19/22 10/19/22 Range/Units 10:55 16:41 19:50 RBC (3.80-5.40) m/uL Hgb (11.4-16.0) gm/dL Hct (34.0-46.0) % RDW (11.5-15.5) % Sodium (137-145) mmol/L Chloride (98-107) mmol/L BUN (7-17) mg/dL Creatinine (0.52-1.04) mg/dL Glucose (74-99) mg/dL POC Glucose (mg/dL) 126 H 116 H (70-110) mg/dL Calcium (8.4-10.2) mg/dL Urine Appearance Cloudy H (Clear) Urine Protein 2+ H (Negative) Urine Blood Large H (Negative) Ur Leukocyte Esterase Large H (Negative) Urine RBC >182 H (0-5) /hpf Urine WBC >182 H (0-5) /hpf Urine WBC Clumps Occasional H (None) /hpf Urine Bacteria Few H (None) /hpf 10/20/22 10/20/22 10/20/22 Range/Units 05:44 07:10 07:10 RBC 2.77 L (3.80-5.40) m/uL Hgb 8.4 L (11.4-16.0) gm/dL Hct 26.2 L (34.0-46.0) % RDW 15.7 H (11.5-15.5) % Sodium 122 L (137-145) mmol/L Chloride 86 L (98-107) mmol/L BUN 44 H (7-17) mg/dL Creatinine 3.71 H (0.52-1.04) mg/dL Glucose 122 H (74-99) mg/dL POC Glucose (mg/dL) 122 H (70-110) mg/dL Calcium 8.1 L (8.4-10.2) mg/dL Urine Appearance (Clear) Urine Protein (Negative) Urine Blood (Negative) Ur Leukocyte Esterase (Negative) Urine RBC (0-5) /hpf Urine WBC (0-5) /hpf Urine WBC Clumps (None) /hpf Urine Bacteria (None) /hpf Diabetes panel 10/20/22 Range/Units 07:10 Sodium 122 L (137-145) mmol/L Potassium 3.6 (3.5-5.1) mmol/L Chloride 86 L (98-107) mmol/L Carbon Dioxide 27 (22-30) mmol/L BUN 44 H (7-17) mg/dL Creatinine 3.71 H (0.52-1.04) mg/dL Glucose 122 H (74-99) mg/dL Calcium 8.1 L (8.4-10.2) mg/dL Calcium panel 10/20/22 Range/Units 07:10 Calcium 8.1 L (8.4-10.2) mg/dL Pituitary panel 10/20/22 Range/Units 07:10 Sodium 122 L (137-145) mmol/L Potassium 3.6 (3.5-5.1) mmol/L Chloride 86 L (98-107) mmol/L Carbon Dioxide 27 (22-30) mmol/L BUN 44 H (7-17) mg/dL Creatinine 3.71 H (0.52-1.04) mg/dL Glucose 122 H (74-99) mg/dL Calcium 8.1 L (8.4-10.2) mg/dL Adrenal panel 10/20/22 Range/Units 07:10 Sodium 122 L (137-145) mmol/L Potassium 3.6 (3.5-5.1) mmol/L Chloride 86 L (98-107) mmol/L Carbon Dioxide 27 (22-30) mmol/L BUN 44 H (7-17) mg/dL Creatinine 3.71 H (0.52-1.04) mg/dL Glucose 122 H (74-99) mg/dL Calcium 8.1 L (8.4-10.2) mg/dL Assessment and Plan Assessment: Impression: Urinary tract infection. Hematuria secondary to urinary tract infection. History of interstitial cystitis with hematuria. Right ureteral obstruction with stent. Chronic renal insufficiency. Recommendations: From a urologic standpoint other than treatment with antibiotics nothing further needs to be done.
[2022-10-21] MEDS: PATIENT'S OWN (Mirabegron [Myrbetriq] 50 MG Tab.Er.24h) PO SCH (07:46)
[2022-10-21] MEDS: PANTOPRAZOLE 40 MG TABLET PO SCH (07:58)
[2022-10-21] MEDS: TAMSULOSIN 0.4 MG CAP.ER.24H PO SCH (07:58)
[2022-10-21] MEDS: PREGABALIN 25 MG CAP PO SCH (07:58)
[2022-10-21] MEDS: FERROUS SULFATE 325 MG TAB PO SCH (07:58)
[2022-10-21] MEDS: SODIUM BICARBONATE TAB 650 MG TAB PO SCH (07:58)
[2022-10-21 08:10] VITALS: BP 126/55; PULSE 59
--- NOTE | 2022-10-21 10:01 | P.PN ---
Subjective Patient is seen in follow-up for acute kidney injury on chronic kidney disease. Feels better today. Has been waiting. No vomiting or diarrhea. Blood pressure controlled. On room air. Vital signs are stable. General: No acute distress. HEENT: Head exam is unremarkable. LUNGS: No audible rhonchi or wheezes. HEART: Rate and Rhythm are regular. ABDOMEN: Obese, nontender. EXTREMITITES: No edema. Objective - Vital Signs Vital signs: Vital Signs Temp 97.6 F 10/21/22 08:00 Pulse 59 L 10/21/22 08:00 Resp 16 10/21/22 08:00 BP 126/55 10/21/22 08:00 Pulse Ox 100 10/21/22 08:00 FiO2 Intake & Output 10/20/22 10/21/22 10/21/22 18:59 06:59 18:59 Intake Total 118 120 Output Total 800 1100 500 Balance -197 -7607 -353 Weight 71.9 kg Intake: Oral 118 120 Output: Urine 800 1100 500 Other: Voiding Method External Catheter External Catheter External Catheter # Bowel Movements 1 1 - Labs CBC & Chem 7: 10/20/22 07:10 10/20/22 16:57 Labs: Abnormal Lab Results - Last 24 Hours (Table) 10/20/22 10/20/22 10/20/22 Range/Units 11:25 16:06 16:57 Sodium 123 L (137-145) mmol/L POC Glucose (mg/dL) 146 H 124 H (70-110) mg/dL Iron (50-170) UG/DL % Saturation (12.00-45.00) Transferrin (204.0-354.0) mg/dL Ferritin (10.0-291.0) ng/mL 10/20/22 10/20/22 Range/Units 16:57 19:43 Sodium (137-145) mmol/L POC Glucose (mg/dL) 133 H (70-110) mg/dL Iron 18 L (50-170) UG/DL % Saturation 7.66 L (12.00-45.00) Transferrin 168.0 L (204.0-354.0) mg/dL Ferritin 546.0 H (10.0-291.0) ng/mL Microbiology - Last 24 Hours (Table) 10/19/22 10:55 Urine Culture - Final Urine,Clean Catch 10/19/22 13:19 Blood Culture - Preliminary Blood Assessment and Plan Plan: Assessment: 1. Acute kidney injury secondary to ATN secondary to infection. Also concern for progression of underlying chronic kidney disease. Creatinine 3.7 yesterday. 2. Chronic kidney disease stage IV with baseline creatinine near 3 secondary to diabetic kidney disease. 3. Hyponatremia secondary to acute kidney injury. 4. Hypokalemia from poor intake. Replace. Better. 5. Diabetes mellitus. 6. UTI on antibiotics. 7. Right-sided hydronephrosis status post ureteral stent placement. 8. Anemia of chronic kidney disease. Iron deficiency noted. On Aranesp. Plan: Hep-Lock IV fluids. Maintain 1500 mL fluid restriction. Add IV iron. Follow-up morning labs. Patient interested in doing in-center hemodialysis. She has appointment with vascular surgery end of the month to schedule AV fistula surgery. Continue to assess daily for need for renal replacement therapy.
[2022-10-21] MEDS ORDERED: SODIUM FERRIC GLUCONAT-SUCROSE 125 MG in SODIUM CHLORIDE 0.9% 100 ML IVPB SCH (10:30)
[2022-10-21 10:46] LABS: African American GFR (CKD) 15 (>60 ml/min/1.73 sqM); Anion Gap 9 mmol/L; Blood Urea Nitrogen 46 mg/dL (7-17); Calcium 8.3 mg/dL (8.4-10.2); Carbon Dioxide 25 mmol/L (22-30); Chloride 93 mmol/L (98-107); Glucose 152 mg/dL (74-99); Magnesium 2.5 mg/dL (1.6-2.3); Non-African American GFR(CKD) 13 (>60 ml/min/1.73 sqM); Potassium 3.8 mmol/L (3.5-5.1); Sodium 127 mmol/L (137-145)
--- NOTE | 2022-10-21 11:05 | P.DS ---
Providers Date of admission: 10/19/22 13:10 Expected date of discharge: 10/21/22 Attending physician: Austyn Mcrae MD Consults: 10/19/22 13:10 Consult Physician Urgent Consulting Provider: Zack Duke Consult Reason/Comments: Renal failure Do you want consulting provider notified?: Yes 10/20/22 09:34 Consult Physician Urgent Consulting Provider: Philippe Peterson Consult Reason/Comments: right uretal stent, hematuria Do you want consulting provider notified?: Yes Primary care physician: Naeem Herr MD Hospital Course: Hematuria likely related to UTI Hyponatremia Acute kidney injury on chronic kidney disease stage IV Resolved: HypoK Chronic conditions: Chronic lower back pain, hypothyroidism, GERD, history of ureteral stent placed on 08/18 for ureteral obstruction Hospital Course: 82-year-old female with PMH stage IV chronic kidney disease, chronic lower back pain, hypothyroidism, GERD, history of ureteral stent placed on 08/18 for ureteral obstruction complicated by UTI presents to the ED for hematuria and unsteadiness. In the ED, her vital signs were stable. CBC showed hemoglobin of 8.4. CMP showed sodium of 122, potassium of 3, chloride of 82, bicarb of 31, BUN of 47, creatinine of 3.56, glucose 109 and calcium of 8.3. Magnesium was 2.4. TSH 1.03. Urinalysis showed 2+ protein, large blood, large leukocyte esterase. EKG showed sinus bradycardia with left bundle branch block, ventricular rate of 56. Chest x-ray showed no acute process. She was started on antibiotics for UTI. Nephrology and Urology were consulted for JM and hist ory of ureteral stenosis respectively. She was interested in-center hemodialysis and has an appointment with vascular surgery at the end of the month for AV fistula. Urology agreed with treatment for UTI and follow up. I spent 38 minutes coordinating this discharge on 10/21. General: non toxic, no distress, appears at stated age Derm: warm, dry Head: atraumatic, normocephalic, symmetric, bruise over the R forehead which appears to be old and healing Eyes: EOMI, no lid lag, anicteric sclera Cardiovascular: S1S2 reg, systolic murmur Lungs: CTA bilateral, no rhonchi, no rales , no accessory muscle use Abdominal: soft, suprapubic tenderness without rebound, no guarding, no appreciable organomegaly Ext: no gross muscle atrophy, no edema, no contractures Neuro: no focal neuro deficits Psych: Alert, oriented, appropriate affect Patient Condition at Discharge: Good Plan - Discharge Summary Discharge Rx Participant: No New Discharge Prescriptions: New Cefdinir 300 mg PO Q12HR #10 cap Continue Omeprazole 40 mg PO DAILY Aspirin EC [Ecotrin Low Dose] 81 mg PO DAILY Pregabalin [Lyrica] 25 mg PO DAILY #3 cap polyethylene glycoL 3350 [Miralax] 17 gm PO DAILY PRN PRN Reason: Constipation Ferrous Sulfate [Iron (65 MG Elemental)] 325 mg PO DAILY 30 Days #30 tab Multivitamins, Thera [Multivitamin (formulary)] 1 tab PO DAILY Fluticasone Propionate 110 Mcg [Flovent 110 Mcg Inhaler] 2 puff INHALATION RT-BID Darbepoetin Mathieu [Aranesp] 200 mcg SQ MO Triamcinolone 0.1% Cream [Kenalog 0.1% Cream] 1 applic TOPICAL BID PRN PRN Reason: Rash Albuterol Inhaler [Ventolin Hfa Inhaler] 2 puff INHALATION RT-Q4H PRN PRN Reason: Shortness Of Breath Levothyroxine Sodium [Synthroid] 88 mcg PO DAILY Tamsulosin [Flomax] 0.4 mg PO DAILY Hyoscyamine Sulfate [Levsin] 0.125 mg PO TID PRN PRN Reason: Gi Upset Loratadine [Claritin] 10 mg PO DAILY PRN PRN Reason: Allergy Symptoms polyethylene glycoL 3350 [Miralax] 17 gm PO DAILY HYDROcodone/APAP 7.5-325MG [[place] 7.5-325] 1 tab PO Q6HR PRN #7 tab PRN Reason: Pain Pregabalin [Lyrica] 50 mg PO HS #3 cap Atorvastatin [Lipitor] 40 mg PO HS Sodium Bicarbonate Tab 650 mg PO BID 30 Days #60 tab Mirabegron [Myrbetriq] 50 mg PO DAILY Mupirocin 2% Oint [Bactroban 2% Oint] 1 applic TOPICAL TID Fluticasone Nasal [place] [Flonase Nasal [place]] 1 spr EA NOSTRIL BID Discontinued Sodium Zirconium Cyclosilicate [Lokelma] 10 gm PO DAILY Discharge Medication List Albuterol Inhaler [Ventolin Hfa Inhaler] 2 puff INHALATION RT-Q4H PRN 06/19/21 [History] Levothyroxine Sodium [Synthroid] 88 mcg PO DAILY 06/19/21 [History] Omeprazole 40 mg PO DAILY 06/19/21 [History] Tamsulosin [Flomax] 0.4 mg PO DAILY 02/03/22 [History] Hyoscyamine Sulfate [Levsin] 0.125 mg PO TID PRN 07/08/22 [History] Aspirin EC [Ecotrin Low Dose] 81 mg PO DAILY 07/28/22 [History] Loratadine [Claritin] 10 mg PO DAILY PRN 07/28/22 [History] polyethylene glycoL 3350 [Miralax] 17 gm PO DAILY 08/19/22 [History] HYDROcodone/APAP 7.5-325MG [[place] 7.5-325] 1 tab PO Q6HR PRN #7 tab 08/25/22 [Rx] Pregabalin [Lyrica] 25 mg PO DAILY #3 cap 08/25/22 [Rx] Pregabalin [Lyrica] 50 mg PO HS #3 cap 08/25/22 [Rx] Atorvastatin [Lipitor] 40 mg PO HS 09/08/22 [History] polyethylene glycoL 3350 [Miralax] 17 gm PO DAILY PRN 09/08/22 [History] Ferrous Sulfate [Iron (65 MG Elemental)] 325 mg PO DAILY 30 Days #30 tab 09/11/22 [Rx] Sodium Bicarbonate Tab 650 mg PO BID 30 Days #60 tab 09/11/22 [Rx] Darbepoetin Mathieu [Aranesp] 200 mcg SQ MO 10/19/22 [History] Fluticasone Nasal [place] [Flonase Nasal [place]] 1 spr EA NOSTRIL BID 10/19/22 [History] Fluticasone Propionate 110 Mcg [Flovent 110 Mcg Inhaler] 2 puff INHALATION RT- BID 10/19/22 [History] Mirabegron [Myrbetriq] 50 mg PO DAILY 10/19/22 [History] Multivitamins, Thera [Multivitamin (formulary)] 1 tab PO DAILY 10/19/22 [History] Mupirocin 2% Oint [Bactroban 2% Oint] 1 applic TOPICAL TID 10/19/22 [History] Triamcinolone 0.1% Cream [Kenalog 0.1% Cream] 1 applic TOPICAL BID PRN 10/19/22 [History] Cefdinir 300 mg PO Q12HR #10 cap 10/21/22 [Rx] Follow up Appointment(s[facility] - (they will call you to schedule visits. ) Naeem Herr MD [Primary Care Provider] - 1-2 days (call to schedule appt, and get BMP rechecked at primary care office. tell them you were discharged from [facility] 10/21 for UTI, hyponatremia, hypokalemia) Zack Duke DO [STAFF PHYSICIAN] - 10/28/22 11:40 am Patient Instructions/Handouts: Urinary Tract Infection in Women (DC), Hyponatremia (DC), Hypokalemia (DC) Discharge Disposition: HOME SELF-CARE
[2022-10-21 12:01] LABS: Glucose,Whole Blood 113 mg/dL (70-110)
== END 2022-10-21 12:14 | disposition home health service (06) | DRG 690 ==
LOC: EC 08:11 → 3SCARD 13:10
PROVIDERS: ADMIT Family Medicine; ATTEND Family Medicine
DX: N13.6 Pyonephrosis (principal); E87.1 Hypo-osmolality and hyponatremia; I13.0 Hypertensive heart and chronic kidney disease with heart failure and stage 1 through stage 4 chronic kidney disease, or unspecified chronic kidney disease; N17.0 Acute kidney failure with tubular necrosis; D63.1 Anemia in chronic kidney disease; E11.22 Type 2 diabetes mellitus with diabetic chronic kidney disease; N18.4 Chronic kidney disease, stage 4 (severe); I50.9 Heart failure, unspecified; Z66 Do not resuscitate; E03.9 Hypothyroidism, unspecified; K21.9 Gastro-esophageal reflux disease without esophagitis; M79.7 Fibromyalgia; E87.6 Hypokalemia; E61.1 Iron deficiency; I44.7 Left bundle-branch block, unspecified; R00.1 Bradycardia, unspecified; G89.29 Other chronic pain; M54.2 Cervicalgia; M54.50 Low back pain, unspecified; S00.83XA Contusion of other part of head, initial encounter; Z79.82 Long term (current) use of aspirin; Z79.890 Hormone replacement therapy; Z79.899 Other long term (current) drug therapy; Z95.2 Presence of prosthetic heart valve; Z96.0 Presence of urogenital implants; Z88.1 Allergy status to other antibiotic agents; Z88.5 Allergy status to narcotic agent; Z88.0 Allergy status to penicillin; Z88.2 Allergy status to sulfonamides
CPT/HCPCS: 36415; 71046; 80048; 80053; 81001; 82728; 83540; 83550; 83605; 83735; 84295; 84443; 85025; 85027; 85610; 85730; 87040; 87086; 93005; 96365; 96366; 96375; 99285

== ENCOUNTER 2022-11-11 15:35 | Emergency (ER) | payer MEDICARE, BC ==
[2022-11-11 17:05] VITALS: TEMP 97.7
[2022-11-11 17:48] LABS: Basophils % (A) 1 %; Eosinophils # (A) 0.2 k/uL (0-0.7); Eosinophils % (A) 4 %; HGB 8.5 gm/dL (11.4-16.0); Lymphocytes # (A) 1.1 k/uL (1.0-4.8); Lymphocytes % (A) 20 %; MCH 31.4 pg (25.0-35.0); MCHC 33.8 g/dL (31.0-37.0); Monocytes # (A) 0.3 k/uL (0-1.0); Monocytes % (A) 6 %; Neutrophils # (A) 3.8 k/uL (1.3-7.7); Neutrophils % (A) 68 %; Platelet Count 190 k/uL (150-450); RBC 2.69 m/uL (3.80-5.40); RDW 15.8 % (11.5-15.5); WBC 5.7 k/uL (3.8-10.6)
[2022-11-11 18:05] LABS: ALT 16 U/L (4-34); AST 28 U/L (14-36); African American GFR (CKD) 13 (>60 ml/min/1.73 sqM); Albumin 3.5 g/dL (3.5-5.0); Alkaline Phosphatase 141 U/L (38-126); Anion Gap 11 mmol/L; Blood Urea Nitrogen 60 mg/dL (7-17); Calcium 8.5 mg/dL (8.4-10.2); Carbon Dioxide 21 mmol/L (22-30); Chloride 94 mmol/L (98-107); Glucose 101 mg/dL (74-99); Lipase 118 U/L (23-300); Non-African American GFR(CKD) 11 (>60 ml/min/1.73 sqM); Potassium 4.9 mmol/L (3.5-5.1); Sodium 126 mmol/L (137-145); Total Bilirubin 0.5 mg/dL (0.2-1.3); Total Protein 7.2 g/dL (6.3-8.2)
[2022-11-11] MEDS: SODIUM CHLORIDE 0.9% 500 ML 500 ML IV STA ×2 (18:15→18:54)
--- NOTE | 2022-11-11 19:11 | ED ---
General Adult HPI - General Chief complaint: Recheck/Abnormal Lab/Rx Stated complaint: abn labs sent by Time Seen by Provider: 11/11/22 17:10 Source: patient, family Mode of arrival: ambulatory Limitations: no limitations - History of Present Illness Initial comments: Patient is an 82-year-old female who presents to the emergency department for abnormal labs. Patient had a follow-up appointment with Dr. Ray for hyperkalemia today she had labs drawn and was called with results that her potassium was high and advised to come to the emergency department. Patient feels a little more tired than normal otherwise feels well. She does not take potassium supplementation. She does have chronic kidney disease and is supposed to be starting dialysis soon. She had an appointment with Dr. Griggs for a graft today but the appointment was canceled by the office. Patient has no other concerns. She denies chest pain, shortness of breath, leg swelling, fever. - Related Data Home Medications Medication Instructions Recorded Confirmed Albuterol Inhaler [Ventolin Hfa 2 puff INHALATION RT-Q4H PRN 06/19/21 11/13/22 Inhaler] Levothyroxine Sodium [Synthroid] 88 mcg PO DAILY 06/19/21 11/13/22 Omeprazole 40 mg PO DAILY 06/19/21 11/13/22 Tamsulosin [Flomax] 0.4 mg PO DAILY 02/03/22 11/13/22 Hyoscyamine Sulfate [Levsin] 0.125 mg PO TID PRN 07/08/22 11/13/22 Aspirin EC [Ecotrin Low Dose] 81 mg PO DAILY 07/28/22 11/13/22 Loratadine [Claritin] 10 mg PO DAILY PRN 07/28/22 11/13/22 polyethylene glycoL 3350 [Miralax] 17 gm PO DAILY 08/19/22 11/13/22 Atorvastatin [Lipitor] 40 mg PO HS 09/08/22 11/13/22 polyethylene glycoL 3350 [Miralax] 17 gm PO DAILY PRN 09/08/22 11/13/22 Darbepoetin Mathieu [Aranesp] 200 mcg SQ MO 10/19/22 11/13/22 Fluticasone Nasal [place] [Flonase 1 spr EA NOSTRIL BID 10/19/22 11/13/22 Nasal [place]] Fluticasone Propionate 110 Mcg 2 puff INHALATION RT-BID 10/19/22 11/13/22 [Flovent 110 Mcg Inhaler] Mirabegron [Myrbetriq] 50 mg PO DAILY 10/19/22 11/13/22 Multivitamins, Thera [Multivitamin 1 tab PO DAILY 10/19/22 11/13/22 (formulary)] Mupirocin 2% Oint [Bactroban 2% 1 applic TOPICAL TID 10/19/22 11/13/22 Oint] Triamcinolone 0.1% Cream [Kenalog 1 applic TOPICAL BID PRN 10/19/22 11/13/22 0.1% Cream] Previous Rx's Medication Instructions Recorded HYDROcodone/APAP 7.5-325MG [[place] 1 tab PO Q6HR PRN #7 tab 08/25/22 7.5-325] Pregabalin [Lyrica] 25 mg PO DAILY #3 cap 08/25/22 Pregabalin [Lyrica] 50 mg PO HS #3 cap 08/25/22 Ferrous Sulfate [Iron (65 MG 325 mg PO DAILY 30 Days #30 tab 09/11/22 Elemental)] Sodium Bicarbonate Tab 650 mg PO BID 30 Days #60 tab 09/11/22 Cefdinir 300 mg PO Q12HR #10 cap 10/21/22 Allergies Allergy/AdvReac Type Severity Reaction Status Date / Time Penicillins Allergy Swelling Verified 11/13/22 09:53 Sulfa (Sulfonamide Allergy Unknown Verified 11/13/22 09:53 Antibiotics) clindamycin AdvReac Nausea & Verified 11/13/22 09:53 Vomiting morphine AdvReac Nausea & Verified 11/13/22 09:53 Vomiting Review of Systems ROS Statement: Those systems with pertinent positive or pertinent negative responses have been documented in the HPI. ROS Other: All systems not noted in ROS Statement are negative. Past Medical History Past Medical History: Diabetes Mellitus, Hypertension, Renal Disease Additional Past Medical History / Comment(s): Type2, hypothyroidism, chronic back/neck pain, fibromyalgia, History of Any Multi-Drug Resistant Organisms: None Reported Past Surgical History: Unable to Obtain Additional Past Surgical History / Comment(s): neck surgery, c-spine surgery, heart valve replacement, urethral stent Past Anesthesia/Blood Transfusion Reactions: No Reported Reaction Past Psychological History: No Psychological Hx Reported Smoking Status: Never smoker Past Alcohol Use History: Rare Past Drug Use History: None Reported - Past Family History Family Family Medical History: No Reported History General Exam Limitations: no limitations General appearance: alert Eye exam: Present: normal appearance, PERRL, EOMI. Absent: scleral icterus, conjunctival injection, periorbital swelling Respiratory exam: Present: normal lung sounds bilaterally. Absent: respiratory distress, wheezes, rales, rhonchi, stridor Cardiovascular Exam: Present: regular rate, normal rhythm, normal heart sounds. Absent: systolic murmur, diastolic murmur, rubs, gallop, clicks Extremities exam: Present: normal inspection, full ROM, normal capillary refill. Absent: pedal edema, joint swelling Neurological exam: Present: alert Psychiatric exam: Present: normal affect, normal mood Skin exam: Present: warm, dry, intact, normal color. Absent: rash Course Vital Signs 11/11/22 11/11/22 11/11/22 17:00 17:52 19:14 Temperature 97.7 F Pulse Rate 72 75 72 Respiratory 18 18 17 Rate Blood Pressure 146/61 131/67 O2 Sat by Pulse 100 100 99 Oximetry Medical Decision Making - Medical Decision Making Was pt. sent in by a medical professional or institution (, PA, PRODUCTION INTERN, urgent care, hospital, or intermediate...) When possible be specific @ -Dr. Ray's office today Did you speak to anyone other than the patient for history (EMS, parent, family, police, friend...)? What history was obtained from this source @ -No Did you review nursing and triage notes (agree or disagree)? Why? @ -I reviewed and agree with nursing and triage notes Were old charts reviewed (outside hosp., previous admission, EMS record, old EKG, old radiological studies, urgent care reports/EKG's, intermediate records)? Report findings @ -No old charts were reviewed Differential Diagnosis (chest pain, altered mental status, abdominal pain women, abdominal pain men, vaginal bleeding, weakness, fever, dyspnea, syncope, headache, dizziness, GI bleed, back pain, seizure, CVA, palpatations, mental health)? @ -Hyperkalemia, CKD, renal failure. this list is not meant to be all inclusive EKG interpreted by me (3pts min.). @ -As above X-rays interpreted by me (1pt min.). @ -None done CT interpreted by me (1pt min.). @ -None done U/S interpreted by me (1pt. min.). @ -None done What testing was considered but not performed or refused? (CT, X-rays, U/S, labs)? Why? @ -None What meds were considered but not given or refused? Why? @ -None Did you discuss the management of the patient with other professionals (professionals i.e. , PA, PRODUCTION INTERN, lab, RT, psych nurse, director social welfare, cut out press operator, teacher, school resource officer, case hardener)? Give summary @ -Dr. Rocha-see hospital course Was smoking cessation discussed for >3mins.? @ -No Was critical care preformed (if so, how long)? @ -No Were there social determinants of health that impacted care today? How? (Homelessness, low income, unemployed, alcoholism, drug addiction, transportation, low edu. Level, literacy, decrease access to med. care, residential, rehab)? @ -No Was there de-escalation of care discussed even if they declined (Discuss DNR or withdrawal of care, Hospice)? DNR status @ -No What co-morbidities impacted this encounter? (DM, HTN, Smoking, COPD, CAD, Cancer, CVA, ARF, Chemo, Hep., AIDS, mental health diagnosis, sleep apnea, morbid obesity)? @ -None Was patient admitted / discharged? Hospital course, mention meds given and route, prescriptions, significant lab abnormalities, going to OR and other pertinent info. @ -Patient presenting for abnormal labs. She is well-appearing.Creatinine is 3.7, BUN 60, consistent with previous visits. Potassium is normal at 4.9. Patient is hyponatremic at 126. Hemoglobin is low at 8.7, consistent with previous visits. Discussed case with Dr. Rocha including lab who recommends outpatient follow up. Patient was given saline bolus for hyponatremia. We discussed strict return parameters Undiagnosed new problem with uncertain prognosis? @ -No Drug Therapy requiring intensive monitoring for toxicity (Heparin, Nitro, Insulin, Cardizem)? @ -No Were any procedures done? @ -No Diagnosis/symptom? @ -CKD, hyponatremia Acute, or Chronic, or Acute on Chronic? @ -acute Uncomplicated (without systemic symptoms) or Complicated (systemic symptoms)? @ -uncomplicated Side effects of treatment? @ -No Exacerbation, Progression, or Severe Exacerbation? @ -No Does a threat to life or bodily function? How? (Chest pain, [place], HI, pneumonia, PE, COPD, DKA, ARF, appy, cholecystitis, CVA, Diverticulitis, Homicidal, Suicidal, threat to staff... and all critical care pts) @ -No Dr. Irene is my attending - Lab Data Result diagrams: 11/11/22 17:33 11/11/22 17:33 Lab Results 11/11/22 11/11/22 11/11/22 Range/Units 17:33 17:33 17:33 WBC 5.7 (3.8-10.6) k/uL RBC 2.69 L (3.80-5.40) m/uL Hgb 8.5 L (11.4-16.0) gm/dL Hct 25.0 L (34.0-46.0) % MCV 93.0 (80.0-100.0) fL MCH 31.4 (25.0-35.0) pg MCHC 33.8 (31.0-37.0) g/dL RDW 15.8 H (11.5-15.5) % Plt Count 190 (150-450) k/uL MPV 10.0 Neutrophils % 68 % Lymphocytes % 20 % Monocytes % 6 % Eosinophils % 4 % Basophils % 1 % Neutrophils # 3.8 (1.3-7.7) k/uL Lymphocytes # 1.1 (1.0-4.8) k/uL Monocytes # 0.3 (0-1.0) k/uL Eosinophils # 0.2 (0-0.7) k/uL Basophils # 0.0 (0-0.2) k/uL Sodium 126 L (137-145) mmol/L Potassium 4.9 (3.5-5.1) mmol/L Chloride 94 L (98-107) mmol/L Carbon Dioxide 21 L (22-30) mmol/L Anion Gap 11 mmol/L BUN 60 H (7-17) mg/dL Creatinine 3.70 H (0.52-1.04) mg/dL Est GFR (CKD-EPI)AfAm 13 (>60 ml/min/1.73 sqM) Est GFR (CKD-EPI)NonAf 11 (>60 ml/min/1.73 sqM) Glucose 101 H (74-99) mg/dL Plasma Lactic Acid Rolly (0.7-2.0) mmol/L Calcium 8.5 (8.4-10.2) mg/dL Total Bilirubin 0.5 (0.2-1.3) mg/dL AST 28 (14-36) U/L ALT 16 (4-34) U/L Alkaline Phosphatase 141 H (38-126) U/L Total Protein 7.2 (6.3-8.2) g/dL Albumin 3.5 (3.5-5.0) g/dL Lipase 118 (23-300) U/L Urine Color Light Yellow Urine Appearance Turbid H (Clear) Urine pH 6.0 (5.0-8.0) Ur Specific [place] 1.014 (1.001-1.035) Urine Protein 1+ H (Negative) Urine Glucose (UA) Negative (Negative) Urine Ketones Negative (Negative) Urine Blood Large H (Negative) Urine Nitrite Negative (Negative) Urine Bilirubin Negative (Negative) Urine Urobilinogen <2.0 (<2.0) mg/dL Ur Leukocyte Esterase Large H (Negative) Urine WBC 1 (0-5) /hpf Ur Squamous Epith Cells 1 (0-4) /hpf Hyaline Casts 1 (0-2) /lpf 11/11/22 Range/Units 17:33 WBC (3.8-10.6) k/uL RBC (3.80-5.40) m/uL Hgb (11.4-16.0) gm/dL Hct (34.0-46.0) % MCV (80.0-100.0) fL MCH (25.0-35.0) pg MCHC (31.0-37.0) g/dL RDW (11.5-15.5) % Plt Count (150-450) k/uL MPV Neutrophils % % Lymphocytes % % Monocytes % % Eosinophils % % Basophils % % Neutrophils # (1.3-7.7) k/uL Lymphocytes # (1.0-4.8) k/uL Monocytes # (0-1.0) k/uL Eosinophils # (0-0.7) k/uL Basophils # (0-0.2) k/uL Sodium (137-145) mmol/L Potassium (3.5-5.1) mmol/L Chloride (98-107) mmol/L Carbon Dioxide (22-30) mmol/L Anion Gap mmol/L BUN (7-17) mg/dL Creatinine (0.52-1.04) mg/dL Est GFR (CKD-EPI)AfAm (>60 ml/min/1.73 sqM) Est GFR (CKD-EPI)NonAf (>60 ml/min/1.73 sqM) Glucose (74-99) mg/dL Plasma Lactic Acid Rolly 0.9 (0.7-2.0) mmol/L Calcium (8.4-10.2) mg/dL Total Bilirubin (0.2-1.3) mg/dL AST (14-36) U/L ALT (4-34) U/L Alkaline Phosphatase (38-126) U/L Total Protein (6.3-8.2) g/dL Albumin (3.5-5.0) g/dL Lipase (23-300) U/L Urine Color Urine Appearance (Clear) Urine pH (5.0-8.0) Ur Specific [place] (1.001-1.035) Urine Protein (Negative) Urine Glucose (UA) (Negative) Urine Ketones (Negative) Urine Blood (Negative) Urine Nitrite (Negative) Urine Bilirubin (Negative) Urine Urobilinogen (<2.0) mg/dL Ur Leukocyte Esterase (Negative) Urine WBC (0-5) /hpf Ur Squamous Epith Cells (0-4) /hpf Hyaline Casts (0-2) /lpf Disposition Clinical Impression: CKD (chronic kidney disease), Hyponatremia Disposition: HOME SELF-CARE Condition: Good Instructions (If sedation given, give patient instructions): Chronic Kidney Disease (ED), Hyponatremia (ED) Additional Instructions: . Please follow-up with Dr. Ray in 1-2 days. Return to the emergency department if you experience new, concerning, or worsening symptoms. Is patient prescribed a controlled substance at d/c from ED?: No Referrals: Naeem Herr MD [Primary Care Provider] - 1-2 days
[2022-11-11 19:15] VITALS: BP 131/67; PULSE 72; RESP 17
[2022-11-11 19:50] LABS: Appearance,Urine Turbid (Clear); Bilirubin,Urine Negative (Negative); Blood,Urine Large (Negative); Color,Urine Light Yellow; Glucose,Urine (UA) Negative (Negative); Ketones,Urine Negative (Negative); Leukocyte Esterase,Urine Large (Negative); Nitrite,Urine Negative (Negative); Protein,Urine 1+ (Negative); Specific Gravity,Urine 1.014 (1.001-1.035); Urobilinogen,Urine <2.0 mg/dL (<2.0)
[2022-11-11 20:03] LABS: Hyaline Casts,Urine 1 /lpf (0-2); Squamous Epithelial Cell,Urine 1 /hpf (0-4); WBC,Urine 1 /hpf (0-5)
== END 2022-11-11 19:18 | disposition home or self-care (01) ==
LOC: EC 15:35
DX: I12.0 Hypertensive chronic kidney disease with stage 5 chronic kidney disease or end stage renal disease (principal); E11.22 Type 2 diabetes mellitus with diabetic chronic kidney disease; N18.6 End stage renal disease; E87.1 Hypo-osmolality and hyponatremia; E03.9 Hypothyroidism, unspecified; Z99.2 Dependence on renal dialysis; Z79.82 Long term (current) use of aspirin; Z79.890 Hormone replacement therapy; Z88.0 Allergy status to penicillin; Z88.1 Allergy status to other antibiotic agents; Z88.2 Allergy status to sulfonamides; Z88.5 Allergy status to narcotic agent
CPT/HCPCS: 36415; 80053; 81001; 83605; 83690; 85025; 99283

== ENCOUNTER → 2022-11-21 | Outpatient (CLI) | payer MEDICARE, BC ==
[2022-11-21 23:35] LABS: BUN/Creat Ratio 15.46 Ratio (12.00-20.00); Blood Urea Nitrogen 71.1 mg/dL (9.0-27.0); Calcium 9.1 mg/dL (8.7-10.3); Carbon Dioxide 17.4 mmol/L (21.6-31.8); Chloride 97 mmol/L (96-109); Glucose 96 mg/dL (70-110); Potassium 5.5 mmol/L (3.5-5.5); Sodium 130 mmol/L (135-145)
== END | disposition home or self-care (01) ==
LOC: LABWHC1 11:40
PROVIDERS: ATTEND Internal Medicine
DX: N18.31 Chronic kidney disease, stage 3a (principal)
CPT/HCPCS: 36415; 80048

== ENCOUNTER 2022-12-29 09:00 | Day surgery (SDC) | payer MEDICARE, BC ==
[2022-12-25 17:28] VITALS: BMI 31.1
[~2022-12-29 09:00] MED LIST: LACTATED RINGERS 1,000 ML IV SCH; LIDOCAINE 1% (10MG/ML) FOR IV START INTRADERMA PRN; ONDANSETRON 4 MG/2 ML VIAL IVP ONE; fentaNYL (PF) 50 MCG/ML 2 ML AMP IV PRN
[2022-12-29] MEDS ORDERED: DEXAMETHASONE SOD PHOSPHATE 4 MG/ML 1 ML VIAL IV ONE (09:52)
[2022-12-29 09:54] LABS: Glucose,Whole Blood 124 mg/dL (70-110)
[2022-12-29 09:59] LABS: Anisocytosis Slight; HCT 23.6 % (34.0-46.0); HGB 7.8 gm/dL (11.4-16.0); MCH 31.3 pg (25.0-35.0); MCV 94.7 fL (80.0-100.0); Mean Platelet Volume 11.2; Platelet Count 151 k/uL (150-450); RBC 2.49 m/uL (3.80-5.40); RDW 16.1 % (11.5-15.5); WBC 5.9 k/uL (3.8-10.6)
[2022-12-29 10:10] LABS: African American GFR (CKD) 17 (>60 ml/min/1.73 sqM); Anion Gap 7 mmol/L; Blood Urea Nitrogen 39 mg/dL (7-17); Calcium 9.2 mg/dL (8.4-10.2); Carbon Dioxide 27 mmol/L (22-30); Chloride 99 mmol/L (98-107); Glucose 113 mg/dL (74-99); Non-African American GFR(CKD) 15 (>60 ml/min/1.73 sqM); Potassium 4.9 mmol/L (3.5-5.1); Sodium 133 mmol/L (137-145)
[2022-12-29] MEDS ORDERED: MIDAZOLAM 2 MG/2 ML VIAL IVP ONE (10:55)
[2022-12-29 11:14] VITALS: RESP 16
--- NOTE | 2022-12-29 11:16 | P.ANPRN ---
Procedure Note - Anesthesia - Nerve Block Performed Left Supraclavicular Time Out Performed: Yes (:55) Date of Procedure: 12/29/22 Procedure Start Time: : Procedure Stop Time: :59 Location of Patient: PreOp Indication: Acute Post-Operative Pain, Requested by Surgeon (Dr Griggs) Sedation Type: Sedate with meaningful contact maintained Preparation: Sterile Prep Position: Supine Catheter: None Needle Types: Pajunk Needle Gauge: Other (see comment) (22g) Ultrasound used to visualize needle placement: Yes Ultrasound used to observe medication spread: Yes Injectate: 0.5% Ropivacaine (see comment for volume) (20cc) Blood Aspirated: No Pain Paresthesia on Injection Noted: No Resistance on Injection: Normal Image Stored and Saved: Yes Events: Uneventful and Well Tolerated
[2022-12-29] MEDS ORDERED: LIDOCAINE 2% INJ 20 MG/ML (2 ML VIAL) ONE (11:53)
[2022-12-29] MEDS ORDERED: ROPIVACAINE 5 MG/ML 30 ML VIAL ONE (11:53)
[2022-12-29] MEDS ORDERED: SUCCINYLCHOLINE CHLORIDE 200 MG/10 ML VIAL IV ONE (11:53)
[2022-12-29] MEDS ORDERED: PROPOFOL 10 MG/ML 20 ML VIAL IV ONE (11:53)
[2022-12-29] MEDS ORDERED: HEPARIN SODIUM,PORCINE 5,000 UNIT/ML 1 ML VIAL ONE (11:53)
[2022-12-29] MEDS ORDERED: THROMBIN (BOVINE) 5,000 UNIT VIAL TOPICAL ONE (12:48)
[2022-12-29] MEDS ORDERED: LIDOCAINE 1% INJ 10MG/ML (20 ML MDV) SQ ONE (12:49)
[2022-12-29] MEDS ORDERED: GELATIN SPONGE,ABSORB (LARGE) 1 EACH SPONGE TOPICAL ONE (12:50)
[2022-12-29] MEDS ORDERED: ceFAZolin 2 GM in SODIUM CHLORIDE 0.9% 500 ML 500 ML IRRIGATION ONE (12:51)
[2022-12-29] MEDS ORDERED: HEPARIN SODIUM,PORCINE (1 ML) 2,000 UNIT in SODIUM CHLORIDE 0.9% 500 ML 500 ML IRRIGATION ONE (12:51)
--- NOTE | 2022-12-29 14:20 | P.OP ---
Date of Procedure: 12/29/22 Preoperative Diagnosis: End-stage renal disease Postoperative Diagnosis: Same Procedure(s) Performed: Left upper extremity loop AV graft creation Anesthesia: ATIF Surgeon: Mahesh Griggs Estimated Blood Loss (ml): 20 Pathology: none sent Condition: stable Disposition: PACU Indications for Procedure: 82-year-old female with history of end-stage renal disease on hemodialysis via a right tunneled chest catheter presents to the hospital for elective left upper extremity loop AV graft creation. She underwent ultrasound of her upper extremities and on vein mapping her veins were not suitable for any fistula and therefore she presents for a graft. Description of Procedure: After written informed consent was obtained the patient all risks benefits and complications were described patient is brought to the operative suite and laid in a supine position with the left arm outstretched on an armboard. The area of the arm was then prepped and draped in usual sterile fashion after appropriate anesthetic was performed per the anesthesiologist. A timeout was performed in normal fashion antibiotics were administered prior to incision. A transverse incision was then created just distal to the elbow and dissection was carried down to the ante-cubital vein and this was dissected free in a circumferential manner. Proximal and distal control was obtained with vessel loops. Attention was then placed to the artery and the brachial artery was then dissected free in a circumferential manner and controlled with vessel loops for the proximal and distal aspect. A tunnel was then created in a loop fashion with a counter-incision made in the forearm and a 4-7 mm [place] propaten graft was tunneled in a loop fashion. Patient was then administered heparin. Arterial anastomosis was then performed after arteriotomy was created in the brachial artery and extended with Pott Kamara scissors. The 4 mm aspect of the graft was then spatulated in normal fashion and anastomosis was created with 6-0 Prolene suture in a running fashion. Control was then released into the graft revealing good pulsatile blood flow. Distal control of the artery was then released. Assessment of the radial artery demonstrated good pulse. The anastomosis was then performed. Venotomy was created with 11 blade scalpel and extended with Pott Kamara scissors. A 7 mm aspect of the graft was then spatulated in normal fashion and anastomosis was created with 6-0 Prolene suture in a running fashion. Prior to last sutures being placed control was released revealing good backbleeding from the vein. The graft was flushed with heparin saline. Control was then released revealing good pulsatile blood flow within the vein with a good palpable thrill noted. Hemostasis was then assured with Gelfoam and thrombin. Incisions were then closed in a multilayer fashion. Skin was cleansed and dressings were placed. The patient tolerated the procedure well and was sent to PACU for recovery.
[2022-12-29 14:32] VITALS: TEMP 98.6
[2022-12-29 14:53] LABS: Glucose,Whole Blood 153 mg/dL (70-110)
[2022-12-29 15:36] VITALS: BP 131/69; PULSE 84
== END 2022-12-29 15:55 | disposition home or self-care (01) ==
LOC: OR 09:00
PROVIDERS: ATTEND Surgery
DX: I12.0 Hypertensive chronic kidney disease with stage 5 chronic kidney disease or end stage renal disease (principal); E11.22 Type 2 diabetes mellitus with diabetic chronic kidney disease; N18.6 End stage renal disease; E07.9 Disorder of thyroid, unspecified; M79.7 Fibromyalgia; K21.9 Gastro-esophageal reflux disease without esophagitis; J44.9 Chronic obstructive pulmonary disease, unspecified; Z88.0 Allergy status to penicillin; Z88.2 Allergy status to sulfonamides; Z88.5 Allergy status to narcotic agent; Z88.1 Allergy status to other antibiotic agents; Z99.2 Dependence on renal dialysis; Z95.2 Presence of prosthetic heart valve; Z79.82 Long term (current) use of aspirin; Z79.890 Hormone replacement therapy; Z79.51 Long term (current) use of inhaled steroids; Z79.899 Other long term (current) drug therapy
CPT/HCPCS: 64415; 80048; 85027; 36830; L8670; J2250; J0330; J1644; J1100; J0690; J2405; J2001 ×2; J2795; J2704

== ENCOUNTER → 2023-02-03 | Outpatient (CLI) | payer MEDICARE, BC ==
--- NOTE | 2023-02-03 12:05 | CT ---
EXAMINATION TYPE: CT chest wo con CT DLP: 495 mGycm, Automated exposure control for dose reduction was used. DATE OF EXAM: 02/03/2023 11:44 AM COMPARISON: Pet/CT 02/21/2022, CLINICAL INDICATION:Female, 82 years old with history of R91.8 abn findings; PHH, abnormal lung findi ngs TECHNIQUE: Multiple axial images were obtained through the chest. Sagittal and coronal reformats were created for review. Contrast used: mL of (None if empty) Oral contrast used: (None if empty) FINDINGS: LUNGS/ PLEURA: Improved aeration of the lungs. No focal consideration, pneumothorax or pleural fusion . Stable appearance of the right upper lobe pulmonary nodule along the periphery series 3 image 8 samantha suring 3 mm. Right medial lower lung pulmonary nodule measuring 9 x 7 mm image 31 is similar given differences in slice selection. Left lower lobe 6 cm pulmonary nodules unchanged image 35. AIRWAY: Patent and unremarkable. HEART: Heart is mildly enlarged for size. Aortic valve repair changes. Mitral valve annular cusp beth ent's. Moderate severe coronary artery atherosclerosis. MEDIASTINUM: No gross evidence of adenopathy. VASCULATURE: No aortic aneurysm. Right central venous catheter with tip terminating in the superior vena cava. MUSCULOSKELETAL: No acute osseous abnormalities SOFT TISSUES/LYMPH NODES: Unremarkable. LOWER NECK: No significant findings. UPPER ABDOMEN: Partially visualized right ureteral stent. The spleen is enlarged for size measuring u p to 14.0 cm. IMPRESSION: Stable pulmonary nodules, There are no new or enlarging pulmonary nodules.
== END | disposition home or self-care (01) ==
LOC: RADCTMAIN 11:22
PROVIDERS: ATTEND Internal Medicine
DX: R91.8 Other nonspecific abnormal finding of lung field (principal)
CPT/HCPCS: 71250

== ENCOUNTER → 2023-02-24 | Outpatient (CLI) | payer MEDICARE, BC ==
[2023-02-24 15:28] LABS: Basophils # (A) 0.07 X 10*3/uL (0.00-0.10); Basophils % (A) 0.7 %; Eosinophils # (A) 0.11 X 10*3/uL (0.04-0.35); Eosinophils % (A) 1.1 %; HCT 32.9 % (37.2-46.3); HGB 10.3 g/dL (12.0-15.0); Lymphocytes # (A) 1.33 X 10*3/uL (0.90-5.00); Lymphocytes % (A) 13.7 %; MCH 30.6 pg (27.0-32.0); MCHC 31.3 g/dL (32.0-37.0); MCV 97.6 FL (80.0-97.0); Mean Platelet Volume 12.1 FL (9.5-12.2); Monocytes # (A) 0.95 X 10*3/uL (0.20-1.00); Monocytes % (A) 9.8 %; NRBC Per 100 WBC 0 X 10*3/uL (0.00-0.01); Neutrophils # (A) 7.19 X 10*3/uL (1.80-7.70); Neutrophils % (A) 74.2 %; Platelet Count 228 X 10*3/uL (140-440); RBC 3.37 X 10*6/uL (4.10-5.20); RDW 18.3 % (11.5-14.5)
[2023-02-24 15:40] LABS: BUN/Creat Ratio 13.04 Ratio (12.00-20.00); Blood Urea Nitrogen 32.6 mg/dL (9.0-27.0); Calcium 9.5 mg/dL (8.7-10.3); Carbon Dioxide 26.8 mmol/L (21.6-31.8); Chloride 98 mmol/L (96-109); Glucose 132 mg/dL (70-110); Potassium 4.5 mmol/L (3.5-5.5); Sodium 137 mmol/L (135-145)
[2023-02-24 19:42] LABS: Appearance,Urine Turbid (Clear); Bilirubin,Urine Small (Negative); Blood,Urine Large (Negative); Color,Urine Dark Yellow (Yellow); Ketones,Urine Trace (Negative); Nitrite,Urine Negative (Negative); PH, Urine 5.5; Specific Gravity,Urine 1.016 (1.001-1.030)
[2023-02-24 20:06] LABS: Bacteria,Urine 3+ (None Seen); Calcium Oxalate Crystals,Urine Present (None Seen); Yeast (UA) Present (None Seen)
== END | disposition home or self-care (01) ==
LOC: LABPAT 10:48
PROVIDERS: ATTEND Urology
DX: Z01.812 Encounter for preprocedural laboratory examination (principal); N13.30 Unspecified hydronephrosis
CPT/HCPCS: 80048; 81001; 85025; 87077; 87086; 87186

== ENCOUNTER 2023-03-04 06:13 | Day surgery (SDC) | payer MEDICARE, BC ==
--- NOTE | 2023-03-02 20:11 | P.GSHP ---
History of Present Illness H&P Date: 03/02/23 82 yo female with a right ureteral stricture treated with a stent. SHe had it evaluated by me as well as the [facility]. She also has a history of interstitial cystitis with hematuria. she comes with right ureteral stent exchange. - Constitutional Constitutional: Denies chills, Denies fever - EENT Eyes: denies blurred vision, denies pain Ears, nose, mouth and throat: Denies headache, Denies sore throat - Cardiovascular Cardiovascular: Denies chest pain, Denies shortness of breath - Respiratory Respiratory: Denies cough, Denies 7 - Gastrointestinal Gastrointestinal: Denies abdominal pain, Denies diarrhea, Denies nausea, Denies vomiting - Genitourinary (Female) Genitourinary: Denies dysuria, Denies hematuria - Genitourinary (Male) Genitourinary: Denies dysuria, Denies hematuria - Musculoskeletal Musculoskeletal: Denies myalgias - Integumentary Integumentary: Denies pruritus, Denies rash - Neurological Neurological: Denies numbness, Denies weakness - Psychiatric Psychiatric: Denies anxiety, Denies depression - Endocrine Endocrine: Denies fatigue, Denies weight change Past Medical History Past Medical History: Diabetes Mellitus, Fibromyalgia, Hypertension, Renal Disease, Thyroid Disorder Additional Past Medical History / Comment(s): hypothyroidism, chronic back/neck pain-pain rt leg and walks with walker, mitral valve murmur, hemodialysis MWF-av access rt chest, c diff yrs ago when took clindamycin for tooth extraction,UTI,has lung nodules currently has a shunt lft arm(lower) History of Any Multi-Drug Resistant Organisms: C-DIFF Date of last positivie culture/infection: 2016 MDRO Source:: stool Past Surgical History: Hysterectomy, Joint Replacement Additional Past Surgical History / Comment(s): neck [id number] surgery, heart aortic valve replacement, rt ureter stent x 3, kristi knee replacements, left forearm graft for Hemodialysis, right subclavian HD cath 11/2022 Past Anesthesia/Blood Transfusion Reactions: No Reported Reaction Additional Past Anesthesia/Blood Transfusion Reaction / Comment(s): states "no problems with intubation but was told by Anesthesia vocal cords are anterior", no problems with prior blood transfusion. adopted Smoking Status: Never smoker - Past Family History Family Family Medical History: No Reported History Additional Family Medical History / Comment(s): adopted Medications and Allergies Home Medications Medication Instructions Recorded Confirmed Type Albuterol Inhaler [Ventolin Hfa 2 puff INHALATION RT-Q4H PRN 06/19/21 03/02/23 History Inhaler] Levothyroxine Sodium [Synthroid] 88 mcg PO QAM 06/19/21 03/02/23 History Omeprazole 40 mg PO QAM 06/19/21 03/02/23 History Tamsulosin [Flomax] 0.4 mg PO HS PRN 02/03/22 03/02/23 History Hyoscyamine Sulfate [Levsin] 0.125 mg PO TID 07/08/22 03/02/23 History Loratadine [Claritin] 10 mg PO DAILY PRN 07/28/22 03/02/23 History Atorvastatin [Lipitor] 40 mg PO HS 09/08/22 03/02/23 History Mirabegron [Myrbetriq] 50 mg PO HS 10/19/22 03/02/23 History Multivitamins, Thera [Multivitamin 1 tab PO DAILY 10/19/22 03/02/23 History (formulary)] Ferrous Sulfate [Iron (65 MG 325 mg PO BID 12/25/22 03/02/23 History Elemental)] Lactulose 20 gm PO TID 12/25/22 03/02/23 History Sevelamer [Renvela] 800 mg PO W/SUPPER 12/25/22 03/02/23 History Acetaminophen Tab [Tylenol] 650 mg PO Q6HR PRN tab 01/03/23 03/02/23 Rx HYDROcodone/APAP 7.5-325MG [[place] 1 tab PO Q6HR PRN #12 tab 01/03/23 03/02/23 Rx 7.5-325] Pregabalin [Lyrica] 25 mg PO DAILY #3 cap 01/03/23 03/02/23 Rx Pregabalin [Lyrica] 50 mg PO HS #3 cap 01/03/23 03/02/23 Rx Aspirin [Adult Low Dose Aspirin EC] 81 mg PO DAILY 03/02/23 03/02/23 History Linezolid [Zyvox] 600 mg PO Q12H 03/02/23 03/02/23 History Allergies Allergy/AdvReac Type Severity Reaction Status Date / Time Penicillins Allergy Anaphylaxis Verified 03/02/23 11:10 Sulfa (Sulfonamide Allergy Rash/Hives Verified 03/02/23 11:10 Antibiotics) clindamycin AdvReac c diff Verified 03/02/23 11:10 morphine AdvReac Nausea & Verified 03/02/23 11:10 Vomiting Surgical - Exam - General well developed, well nourished, no distress - Eyes normal ocular movement, no icteric - ENT no hearing loss, no congestion - Neck no masses, trachea midline - Respiratory normal respiratory effort, clear to auscultation - Abdomen Abdomen: soft, non tender, no guarding, no rigid, no rebound - Integumentary no rash, no abnormal pigmentation - Neurologic no disoriented, no combative - Psychiatric oriented to time, oriented to person, oriented to place, speech is normal, memory intact Assessment and Plan Assessment: Impression: right ureteral stricture treated with a stent.. Interstitial cystitis Plan: Cysto with stent exchange right
[~2023-03-04 06:13] MED LIST changes: +GENTAMICIN 80 MG in SODIUM CHLORIDE 0.9% 100 ML IVPB PRN; -LACTATED RINGERS 1,000 ML IV SCH; -LIDOCAINE 1% (10MG/ML) FOR IV START INTRADERMA PRN; -ONDANSETRON 4 MG/2 ML VIAL IVP ONE; +Pre Op ABX Message 1 EACH MISC MISCELLANE ONE; -fentaNYL (PF) 50 MCG/ML 2 ML AMP IV PRN
[2023-03-04] MEDS ORDERED: HYDROmorphone 0.5 MG/0.5 ML SYRINGE IVP PRN (06:35)
[2023-03-04] MEDS ORDERED: MIDAZOLAM 2 MG/2 ML VIAL IV PRN (06:35)
[2023-03-04] MEDS ORDERED: ONDANSETRON 4 MG/2 ML VIAL IVP ONE (06:35)
[2023-03-04] MEDS ORDERED: LACTATED RINGERS 1,000 ML IV SCH (06:35)
[2023-03-04] MEDS ORDERED: LIDOCAINE 1% (10MG/ML) FOR IV START INTRADERMA PRN (06:35)
[2023-03-04] MEDS ORDERED: DEXAMETHASONE SOD PHOSPHATE 4 MG/ML 1 ML VIAL IV ONE (06:35)
[2023-03-04 07:00] VITALS: TEMP 98.3
[2023-03-04 07:13] LABS: Glucose,Whole Blood 145 mg/dL (70-110)
[2023-03-04 07:17] LABS: Anisocytosis Slight; HCT 30.2 % (34.0-46.0); Hypochromasia Moderate; MCH 31.6 pg (25.0-35.0); MCV 95.8 fL (80.0-100.0); Macrocytosis Slight; Mean Platelet Volume 10.8; Platelet Count 145 k/uL (150-450); RBC 3.15 m/uL (3.80-5.40); RDW 17.2 % (11.5-15.5); WBC 6.6 k/uL (3.8-10.6)
[2023-03-04] MEDS ORDERED: fentaNYL (PF) 50 MCG/ML 2 ML AMP ONE (07:24)
[2023-03-04] MEDS ORDERED: PROPOFOL 10 MG/ML 20 ML VIAL IV ONE (07:24)
[2023-03-04 07:30] LABS: ALT 18 U/L (4-34); AST 31 U/L (14-36); African American GFR (CKD) 23 (>60 ml/min/1.73 sqM); Albumin 3.7 g/dL (3.5-5.0); Alkaline Phosphatase 166 U/L (38-126); Anion Gap 13 mmol/L; Blood Urea Nitrogen 32 mg/dL (7-17); Carbon Dioxide 26 mmol/L (22-30); Chloride 98 mmol/L (98-107); Glucose 137 mg/dL (74-99); Non-African American GFR(CKD) 20 (>60 ml/min/1.73 sqM); Potassium 3.9 mmol/L (3.5-5.1); Sodium 137 mmol/L (137-145); Total Bilirubin 0.6 mg/dL (0.2-1.3); Total Protein 7.5 g/dL (6.3-8.2)
--- NOTE | 2023-03-04 08:06 | P.OP ---
Date of Procedure: 03/04/23 Preoperative Diagnosis: right hydronephrosis, right ureteral state Postoperative Diagnosis: same Procedure(s) Performed: cysto with exchange of ureteral stent right, 6x22 Anesthesia: MAC Surgeon: Philippe Peterson Estimated Blood Loss (ml): 0 Pathology: none sent Condition: stable Disposition: PACU Indications for Procedure: the patient is 83 with a benign ureteral stricture right treated with double j catheter. Comes for exchange of catheter. Description of Procedure: Patient is brought to the operating suite. She's placed on the operating table in the supine position. She's given IV sedation. She's placed lithotomy position with a sterile prep and drape. Cystoscopy Foroblique lens and 22- Lao sheath identifies a double-J catheter on the right. She has chronic interstitial cystitis with hematuria. Do not do an extensive cystoscopy as it causes her to bleed. The right double-J catheters identified and pulled to the urethral meatus. An 035 wires passed up the stent into the right kidney. The stent was removed and a new 6 x 22 catheter is placed into the right renal pelvis and bladder. It is confirmed fluoroscopically and I do a quick cystoscopy to make sure this didn't is appropriately in the right ureteral orifice and it is. Patient awake and returned recovery in good condition. Blood loss is minimal.
[2023-03-04 08:26] VITALS: RESP 18
[2023-03-04 08:54] VITALS: BP 145/68; PULSE 67
--- NOTE | 2023-03-04 11:59 | FL ---
EXAMINATION TYPE: FL guidance operating room DATE OF EXAM: 03/04/2023 Comparison: None Clinical History: 83-year-old female CYSTOSCOPY RT HYDRONEPHROSIS Findings: fl time 8 secs DAP 167.74 mGycm2 cysto in OR 3 images are provided Impression: Fluoroscopy for urology procedure as above.
== END 2023-03-04 09:12 | disposition home or self-care (01) ==
LOC: OR 06:13
PROVIDERS: ATTEND Urology
DX: N13.1 Hydronephrosis with ureteral stricture, not elsewhere classified (principal); N30.11 Interstitial cystitis (chronic) with hematuria; I10 Essential (primary) hypertension; E11.9 Type 2 diabetes mellitus without complications; E03.9 Hypothyroidism, unspecified; M79.7 Fibromyalgia; Z99.2 Dependence on renal dialysis; Z96.653 Presence of artificial knee joint, bilateral; Z90.710 Acquired absence of both cervix and uterus; Z79.890 Hormone replacement therapy; Z88.0 Allergy status to penicillin; Z88.2 Allergy status to sulfonamides; Z88.1 Allergy status to other antibiotic agents; Z88.5 Allergy status to narcotic agent; Z79.899 Other long term (current) drug therapy
CPT/HCPCS: 80053; 85027; 52332; C2625; J1100; J2405; J3010; J1580; J2704

== ENCOUNTER 2023-03-06 08:49 | Day surgery (SDC) | payer MEDICARE, BC ==
[~2023-03-06 08:49] MED LIST changes: -GENTAMICIN 80 MG in SODIUM CHLORIDE 0.9% 100 ML IVPB PRN; -Pre Op ABX Message 1 EACH MISC MISCELLANE ONE; +SODIUM CHLORIDE 0.9% 500 ML 500 ML IV SCH
[2023-03-06] MEDS ORDERED: SODIUM CHLORIDE 0.9% 1,000 ML IV ONE (09:05)
[2023-03-06 09:16] LABS: Glucose,Whole Blood 85 mg/dL (70-110)
[2023-03-06 09:18] VITALS: RESP 16; TEMP 98.2
[2023-03-06] MEDS ORDERED: MIDAZOLAM 2 MG/2 ML VIAL IVP ONE (09:43)
[2023-03-06] MEDS ORDERED: LIDOCAINE 1% INJ 10MG/ML (20 ML MDV) SQ ONE (09:43)
[2023-03-06] MEDS ORDERED: ALTEPLASE 10 MG in SODIUM CHLORIDE 0.9% 50 ML MISCELLANE ONE (09:45)
[2023-03-06] MEDS ORDERED: IOPAMIDOL-370 100ML BTL INJ ONE (11:27)
--- NOTE | 2023-03-06 11:38 | P.OP ---
Date of Procedure: 03/06/23 Preoperative Diagnosis: Thrombosed left upper extremity loop graft Postoperative Diagnosis: Thrombosed left upper extremity loop AVG Outflow and inflow stenosis Procedure(s) Performed: Ultrasound guided access of the left upper extremity loop AVG x 2 Fistulagram Percutaneous thrombolysis and mechanical thrombectomy with Angiojet device Percutaneous balloon angioplasty of the inflow and outflow stenosis Conscious sedation x 105 minutes Anesthesia: local Surgeon: Mahesh Griggs Estimated Blood Loss (ml): 200 Pathology: none sent Condition: stable Disposition: PACU Indications for Procedure: 83-year-old female with history of incisional disease on hemodialysis via left upper extremity loop AV graft presented to the office and was diagnosed with thrombosis of the graft and presents today for thrombolysis and thrombectomy for revascularization. Operative Findings: thrombosed loop forearm graft Outflow and inflow stenosis noted Description of Procedure: After written informed consent was obtained the patient all risks benefits competitions were described the patient is brought to the [facility] and laid in a supine position with their left arm outstretched on an armboard. The area of the arm was prepped and draped in usual sterile fashion. Utilizing local anesthetic the fistula was accessed under ultrasound guidance and a 6-Hebrew sheath was placed. Fistulogram was then obtained demonstrating thrombosed for earm graft. Guidewire was then placed across the outflow and utilizing an AngioJet catheter TPA was infused and allowed to soak for 10-15 minutes. Once completed thrombectomy was performed with the AngioJet catheter in normal fashion. Ultrasound-guided access on the venous sites towards the arterial inflow was then obtained in normal fashion and a 6-Hebrew sheath was placed. Guidewire was then placed across the inflow and AngioJet catheter was then placed and TPA was infused once again allowing 10-15 minutes before thrombectomy was performed with the same AngioJet catheter. Once completed fistula gram was performed demonstrating improved flow but still some inflow stenosis roughly 50% as well as outflow stenosis roughly 60% and therefore wires were placed across these lesions and balloon angioplasty was performed first with a 4 x 20 mm balloon and followed with a 7 x 40 mm balloon. Once completed brisk inflow was noted with good thrill and no evidence of thrombus. All guidewires and catheters were removed. The sheaths were then removed after sutures were placed for hemostasis. The area was cleansed and dressings were placed. Patient tolerated the procedure well and a palpable thrill at the conclusion of the procedure. She will have the sutures removed at hemodialysis. Plan - Discharge Summary Discharge Rx Participant: No New Discharge Prescriptions: No Action RX: Omeprazole 40 mg PO QAM RX: Multivitamins, Thera [Multivitamin (formulary)] 1 tab PO HS RX: Ferrous Sulfate [Iron (65 MG Elemental)] 325 mg PO BID RX: Sevelamer [Renvela] 800 mg PO W/SUPPER RX: Acetaminophen Tab [Tylenol] 650 mg PO Q6HR PRN tab PRN Reason: Mild Pain Or Fever > 100.5 nitrofurantoin macrocrystaL [Nitrofurantoin] 100 mg PO BID RX: Albuterol Inhaler [Ventolin Hfa Inhaler] 2 puff INHALATION RT-Q4H PRN PRN Reason: Shortness Of Breath RX: Levothyroxine Sodium [Synthroid] 88 mcg PO QAM RX: Tamsulosin [Flomax] 0.4 mg PO HS PRN PRN Reason: difficulty urinating RX: Hyoscyamine Sulfate [Levsin] 0.125 mg PO TID RX: Loratadine [Claritin] 10 mg PO DAILY PRN PRN Reason: Allergy Symptoms RX: Atorvastatin [Lipitor] 40 mg PO HS RX: Mirabegron [Myrbetriq] 50 mg PO HS RX: Lactulose 20 gm PO TID PRN PRN Reason: Constipation RX: Pregabalin [Lyrica] 25 mg PO DAILY #3 cap RX: Pregabalin [Lyrica] 50 mg PO HS #3 cap RX: HYDROcodone/APAP 7.5-325MG [[place] 7.5-325] 1 tab PO Q6HR PRN #12 tab PRN Reason: Pain Aspirin [Adult Low Dose Aspirin EC] 81 mg PO DAILY Unk Carvediolo 1 tab PO DIRECTED PRN PRN Reason: BP >150 Discharge Medication List RX: Albuterol Inhaler [Ventolin Hfa Inhaler] 2 puff INHALATION RT-Q4H PRN 06/19/21 [History] RX: Levothyroxine Sodium [Synthroid] 88 mcg PO QAM 06/19/21 [History] RX: Omeprazole 40 mg PO QAM 06/19/21 [History] RX: Tamsulosin [Flomax] 0.4 mg PO HS PRN 02/03/22 [History] RX: Hyoscyamine Sulfate [Levsin] 0.125 mg PO TID 07/08/22 [History] RX: Loratadine [Claritin] 10 mg PO DAILY PRN 07/28/22 [History] RX: Atorvastatin [Lipitor] 40 mg PO HS 09/08/22 [History] RX: Mirabegron [Myrbetriq] 50 mg PO HS 10/19/22 [History] RX: Multivitamins, Thera [Multivitamin (formulary)] 1 tab PO HS 10/19/22 [History] RX: Ferrous Sulfate [Iron (65 MG Elemental)] 325 mg PO BID 12/25/22 [History] RX: Lactulose 20 gm PO TID PRN 12/25/22 [History] RX: Sevelamer [Renvela] 800 mg PO W/SUPPER 12/25/22 [History] RX: Acetaminophen Tab [Tylenol] 650 mg PO Q6HR PRN tab 01/03/23 [Rx] RX: HYDROcodone/APAP 7.5-325MG [[place] 7.5-325] 1 tab PO Q6HR PRN #12 tab 01/03/23 [Rx] RX: Pregabalin [Lyrica] 25 mg PO DAILY #3 cap 01/03/23 [Rx] RX: Pregabalin [Lyrica] 50 mg PO HS #3 cap 01/03/23 [Rx] Aspirin [Adult Low Dose Aspirin EC] 81 mg PO DAILY 03/02/23 [History] Unk Carvediolo 1 tab PO DIRECTED PRN 03/04/23 [History] nitrofurantoin macrocrystaL [Nitrofurantoin] 100 mg PO BID 03/04/23 [History] Follow up Appointment(s)/Referral(s): Mahesh Griggs DO [STAFF PHYSICIAN] - As Needed (dialysis will remove sutures next week. ) Patient Instructions/Handouts: Fall Prevention for Older Adults (DC), Fistulogram (DC) Activity/Diet/Wound Care/Special Instructions: NO DRIVING TODAY IF SEDATION GIVEN. FALL PRECAUTIONS DUE TO SEDATION GIVEN.
[2023-03-06 12:20] VITALS: BP 157/72; PULSE 72
--- NOTE | 2023-03-09 08:37 | IR ---
EXAMINATION TYPE: IR fistula/abscess/sinus tract DATE OF EXAM: 03/06/2023 COMPARISON: NONE HISTORY: Fluoroscopy time. Fluoroscopy was provided to the referring clinician.
== END 2023-03-06 12:17 | disposition home or self-care (01) ==
LOC: CATHCVL 08:49
PROVIDERS: ATTEND Surgery
DX: T82.858A Stenosis of other vascular prosthetic devices, implants and grafts, initial encounter (principal); I12.9 Hypertensive chronic kidney disease with stage 1 through stage 4 chronic kidney disease, or unspecified chronic kidney disease; E11.22 Type 2 diabetes mellitus with diabetic chronic kidney disease; N18.6 End stage renal disease; K21.9 Gastro-esophageal reflux disease without esophagitis; E78.5 Hyperlipidemia, unspecified; Z99.2 Dependence on renal dialysis; Z79.82 Long term (current) use of aspirin; Z88.0 Allergy status to penicillin; Z88.2 Allergy status to sulfonamides; Z79.899 Other long term (current) drug therapy; Z88.8 Allergy status to other drugs, medicaments and biological substances; Z88.5 Allergy status to narcotic agent; Y83.8 Other surgical procedures as the cause of abnormal reaction of the patient, or of later complication, without mention of misadventure at the time of the procedure
CPT/HCPCS: 36905; C1894; C1769 ×4; C1725; C1757; J2250; J2001; J2997; Q9967

== ENCOUNTER 2023-03-10 09:35 | Inpatient (IN) | payer MEDICARE, BC ==
--- NOTE | 2023-03-10 09:56 | ED ---
General Adult HPI - General Source: patient, family, RN notes reviewed Mode of arrival: wheelchair Limitations: no limitations <Valentin Escalante - Last Filed: 03/10/23 09:55> <Shaun Hassan - Last Filed: 03/10/23 15:07> - General Chief complaint: Recheck/Abnormal Lab/Rx Stated complaint: fever and shakes for a couple days Time Seen by Provider: 03/10/23 09:55 - History of Present Illness Initial comments: 83-year-old female presents emergency from she went of a fever. Patient states she had 102 temp at home. Patient is concerned as she had her fistula cleared out because of a clot on her left arm by Dr. Griggs. Patient states that she also had a stent removed by urology. Patient states she was also been treated for UTI. Patient had exposure to sick contacts. Patient denies any abdominal pain. Patient states he is concerned about her shaking episodes and fever. (Valentin Escalante) Dictation was produced using [employer] dictation software. please excuse any gram matical, word or spelling errors. Chief Complaint: 83-year-old female presents to the emergency department for constitutional symptoms History of Present Illness: 83-year-old female she has multiple comorbidities presents to emergency department for 2-3 days of constitutional symptoms. Within the month she had a right ureteral stent placement and she also had procedure to unclog left upper extremity HD access. 48 hours she has developed constitutional symptoms described as fever or chills. She was exposed to her grandson who did have a cold. Denies any pain. She does have 2 days of no right-sided abdominal pain. Denies any burning on urination. She completed a course of Macrobid antibiotics or suspect treatment of urinary tract infection. She has indwelling percutaneous HD catheters in her right chest. Denies any cough. No sore throat or runny nose. The ROS documented in this emergency department record has been reviewed and confirmed by me. Those systems with pertinent positive or negative responses have been documented in the HPI. All other systems are other negative and/or noncontributory. (Shaun Hassan) - Related Data Home Medications Medication Instructions Recorded Confirmed Albuterol Inhaler [Ventolin Hfa 2 puff INHALATION RT-Q4H PRN 06/19/21 03/04/23 Inhaler] Levothyroxine Sodium [Synthroid] 88 mcg PO QAM 06/19/21 03/06/23 Omeprazole 40 mg PO QAM 06/19/21 03/06/23 Tamsulosin [Flomax] 0.4 mg PO HS PRN 02/03/22 03/06/23 Hyoscyamine Sulfate [Levsin] 0.125 mg PO TID 07/08/22 03/06/23 Loratadine [Claritin] 10 mg PO DAILY PRN 07/28/22 03/04/23 Atorvastatin [Lipitor] 40 mg PO HS 09/08/22 03/06/23 Mirabegron [Myrbetriq] 50 mg PO HS 10/19/22 03/06/23 Multivitamins, Thera [Multivitamin 1 tab PO HS 10/19/22 03/06/23 (formulary)] Ferrous Sulfate [Iron (65 MG 325 mg PO BID 12/25/22 03/04/23 Elemental)] Lactulose 20 gm PO TID PRN 12/25/22 03/06/23 Sevelamer [Renvela] 800 mg PO W/SUPPER 12/25/22 03/06/23 Aspirin [Adult Low Dose Aspirin EC] 81 mg PO DAILY 03/02/23 03/04/23 Unk Carvediolo 1 tab PO DIRECTED PRN 03/04/23 03/04/23 nitrofurantoin macrocrystaL 100 mg PO BID 03/04/23 03/06/23 [Nitrofurantoin] Previous Rx's Medication Instructions Recorded Acetaminophen Tab [Tylenol] 650 mg PO Q6HR PRN tab 01/03/23 HYDROcodone/APAP 7.5-325MG [[place] 1 tab PO Q6HR PRN #12 tab 01/03/23 7.5-325] Pregabalin [Lyrica] 25 mg PO DAILY #3 cap 01/03/23 Pregabalin [Lyrica] 50 mg PO HS #3 cap 01/03/23 Allergies Allergy/AdvReac Type Severity Reaction Status Date / Time Penicillins Allergy Anaphylaxis Verified 03/10/23 09:54 Sulfa (Sulfonamide Allergy Rash/Hives Verified 03/10/23 09:54 Antibiotics) clindamycin AdvReac c diff Verified 03/10/23 09:54 morphine AdvReac Nausea & Verified 03/10/23 09:54 Vomiting Review of Systems ROS Other: All systems not noted in ROS Statement are negative. <Valentin Escalante - Last Filed: 03/10/23 09:55> ROS Other: All systems not noted in ROS Statement are negative. <Shaun Hassan - Last Filed: 03/10/23 15:07> ROS Statement: Those systems with pertinent positive or pertinent negative responses have been documented in the HPI. Past Medical History Past Medical History: COPD, Diabetes Mellitus, Fibromyalgia, GERD/Reflux, Hyperlipidemia, Hypertension, Osteoarthritis (OA), Renal Disease, Thyroid Disorder Additional Past Medical History / Comment(s): hypothyroidism, chronic back/neck pain-pain rt leg and walks with walker, mitral valve murmur, hemodialysis MWF-av access rt chest, c diff yrs ago when took clindamycin for tooth extraction,UTI,has lung nodules. has bundle block on ekgs, cystitis. controls diabetes with diet. takes carvedilol if Systolic over 150.hasnt needed,. , small open area on coccyx that she normally wears a cushion pad. History of Any Multi-Drug Resistant Organisms: C-DIFF Date of last positivie culture/infection: 2016 MDRO Source:: stool Past Surgical History: Hysterectomy, Joint Replacement Additional Past Surgical History / Comment(s): neck [id number] surgery, heart aortic valve replacement, rt ureter stent x 3, kristi knee replacements, left forearm graft for Hemodialysis, right subclavian HD cath 11/2022 Past Anesthesia/Blood Transfusion Reactions: No Reported Reaction Additional Past Anesthesia/Blood Transfusion Reaction / Comment(s): states "no problems with intubation but was told by Anesthesia vocal cords are anterior", no problems with prior blood transfusion. adopted Past Psychological History: No Psychological Hx Reported Smoking Status: Never smoker Past Alcohol Use History: None Reported Past Drug Use History: None Reported - Past Family History Family Family Medical History: No Reported History Additional Family Medical History / Comment(s): adopted <Valentin Escalante - Last Filed: 03/10/23 09:55> General Exam Limitations: no limitations <Valentin Escalante - Last Filed: 03/10/23 09:55> <Shaun Hassan - Last Filed: 03/10/23 15:07> - General Exam Comments Initial Comments: Visual Physical Exam Vital signs reviewed General: Well-appearing, nontoxic, no acute distress. Head: Normocephalic, atraumatic Eyes: PERRLA, EOMI ENT: Airway patent Chest: Nonlabored breathing Skin: No visual rash, normal skin tone Neuro: Alert and oriented 3 Musculoskeletal: No gross abnormalities (Valentin Escalante) PHYSICAL EXAM: General Impression: Alert and oriented x3, not in acute distress HEENT: Normocephalic atraumatic, extra-ocular movements intact, pupils equal and reactive to light bilaterally, mucous membranes moist. Cardiovascular: Heart regular rate and rhythm Chest: Able to complete full sentences, no retractions, no tachypnea Abdomen: abdomen soft, non-tender, non-distended, no organomegaly Musculoskeletal: Pulses present and equal in all extremities, no peripheral edema Motor: no focal deficits noted Neurological: CN II-XII grossly intact, no focal motor or sensory deficits noted Skin: Intact with no visualized rashes Psych: Normal affect and mood (Shaun Hassan) Course Vital Signs 03/10/23 03/10/23 03/10/23 09:47 11:54 13:44 Temperature 98.2 F 98.0 F 97.9 F Pulse Rate 91 85 Respiratory 18 18 Rate Blood Pressure 82/46 106/56 118/53 O2 Sat by Pulse 96 100 Oximetry Medical Decision Making <Valentin Escalante - Last Filed: 03/10/23 09:55> - Lab Data Result diagrams: 03/10/23 09:56 03/10/23 09:56 <Shaun Hassan - Last Filed: 03/10/23 15:07> - Medical Decision Making I completed the quick note portion of this chart signed Valentin Escalante PA-C (Valentin Escalante) Was pt. sent in by a medical professional or institution ([facility], [employer], urgent care, hospital, or long-term...) When possible be specific @ -No Did you speak to anyone other than the patient for history (EMS, parent, family, police, friend...)? What history was obtained from this source @ -No Did you review nursing and triage notes (agree or disagree)? Why? @ -I reviewed and agree with nursing and triage notes Were old charts reviewed (outside hosp., previous admission, EMS record, old EKG, old radiological studies, urgent care reports/EKG's, long-term records)? Report findings @ -Surgical chart was reviewed showing patient had vascular surgery procedure along with urologic procedure within the last week Differential Diagnosis (chest pain, altered mental status, abdominal pain women, abdominal pain men, vaginal bleeding, musculoskeletal, weakness, fever, dyspnea, syncope, headache, dizziness, GI bleed, back pain, seizure, CVA, palpatations, mental health)? @ -Differential Fever: Pneumonia, viral URI, endocarditis, myocarditis, pericarditis, otitis, sinusitis, peritonsillar Abscess, retropharyngeal Abscess, epiglottitis, peritonitis, appendicitis, Fior cystitis, diverticulitis, hepatitis, colitis, UTI, PID, TOA, pyelonephritis, prostatitis, epididymitis, meningitis, encephalitis, pulmonary embolism, CVA, thyroid storm, pancreatitis, adrenal crisis, cavernous sinus thrombosis, this is not meant to be an all-inclusive list. EKG interpreted by me (3pts min.). @ -see above X-rays interpreted by me (1pt min.). @ -Chest x-rays shows right upper lobe infiltrate suspicious for pneumonia CT interpreted by me (1pt min.). @ -CT abdomen and pelvis shows right-sided hydronephrosis with some right perinephric stranding U/S interpreted by me (1pt. min.). @ -None done What testing was considered but not performed or refused? (CT, X-rays, U/S, labs)? Why? @ -None What meds were considered but not given or refused? Why? @ -None Did you discuss the management of the patient with other professionals (professionals i.e. , PA, [employer], lab, RT, psych nurse, high school social studies teacher, linter drier operator, teacher, corporate compliance officer, piano case maker)? Give summary @ -Case was discussed with hospitalist for admission Was smoking cessation discussed for >3mins.? @ -No Was critical care preformed (if so, how long)? @ -No Were there social determinants of health that impacted care today? How? (Homelessness, low income, unemployed, alcoholism, drug addiction, transportation, low edu. Level, literacy, decrease access to med. care, skilled nursing, rehab)? @ -No Was there de-escalation of care discussed even if they declined (Discuss DNR or withdrawal of care, Hospice)? DNR status @ -No What co-morbidities impacted this encounter? (DM, HTN, Smoking, COPD, CAD, Cancer, CVA, ARF, Chemo, Hep., AIDS, mental health diagnosis, sleep apnea, morbid obesity)? @ -None Was patient admitted / discharged? Hospital course, mention meds given and route, prescriptions, significant lab abnormalities, going to OR and other pertinent info. @ -83-year-old female presents emergency department for constitutional symptoms. Vital signs upon arrival shows blood pressure of 82/46 worse vital signs within acceptable limits. She is afebrile. Repeat vital signs shows blood pressure 106/56. Laboratory evaluation obtained. Leukocytosis of 21.2 like gastrostomy 0.8. Urinalysis positive for urinary tract infection. Viral testing negative. Patient started on broad-spectrum antibiotics. Patient be admitted with consultation to urology, nephrology and infectious disease. Undiagnosed new problem with uncertain prognosis? @ -No Drug Therapy requiring intensive monitoring for toxicity (Heparin, Nitro, Insulin, Cardizem)? @ -No Were any procedures done? @ -No Diagnosis/symptom? Acute, or Chronic, or Acute on Chronic? Uncomplicated (without systemic symptoms) or Complicated (systemic symptoms)? @ -SIRS/Sepsis Side effects of treatment? @ -No Exacerbation, Progression, or Severe Exacerbation? @ -No Poses a threat to life or bodily function? How? (Chest pain, [place], AR, pneumonia, PE, COPD, DKA, ARF, appy, cholecystitis, CVA, Diverticulitis, Homicidal, Suicidal, threat to staff... and all critical care pts) @ -yes (Shaun Hassan) - Lab Data Lab Results 03/10/23 03/10/23 03/10/23 Range/Units 09:56 09:56 09:56 WBC 21.2 H (3.8-10.6) k/uL RBC 3.29 L (3.80-5.40) m/uL Hgb 10.1 L (11.4-16.0) gm/dL Hct 31.5 L (34.0-46.0) % MCV 95.8 (80.0-100.0) fL MCH 30.7 (25.0-35.0) pg MCHC 32.1 (31.0-37.0) g/dL RDW 18.2 H (11.5-15.5) % Plt Count 223 (150-450) k/uL MPV 10.8 Neutrophils % 89 % Lymphocytes % 5 % Monocytes % 4 % Eosinophils % 0 % Basophils % 0 % Neutrophils # 19.0 H (1.3-7.7) k/uL Lymphocytes # 1.0 (1.0-4.8) k/uL Monocytes # 0.9 (0-1.0) k/uL Eosinophils # 0.1 (0-0.7) k/uL Basophils # 0.1 (0-0.2) k/uL Hypochromasia Moderate Anisocytosis Slight Macrocytosis Slight Sodium 134 L (137-145) mmol/L Potassium 4.0 (3.5-5.1) mmol/L Chloride 94 L (98-107) mmol/L Carbon Dioxide 25 (22-30) mmol/L Anion Gap 15 mmol/L BUN 40 H (7-17) mg/dL Creatinine 3.31 H (0.52-1.04) mg/dL Est GFR (CKD-EPI)AfAm 14 (>60 ml/min/1.73 sqM) Est GFR (CKD-EPI)NonAf 12 (>60 ml/min/1.73 sqM) Glucose 180 H (74-99) mg/dL Lactic Ac Sepsis Rflx Plasma Lactic Acid Rolly (0.7-2.0) mmol/L Calcium 8.9 (8.4-10.2) mg/dL Total Bilirubin 1.1 (0.2-1.3) mg/dL AST 28 (14-36) U/L ALT 20 (4-34) U/L Alkaline Phosphatase 125 (38-126) U/L Total Protein 7.6 (6.3-8.2) g/dL Albumin 3.8 (3.5-5.0) g/dL Urine Color Red Urine Appearance Turbid H (Clear) Urine pH 5.5 (5.0-8.0) Ur Specific [place] 1.020 (1.001-1.035) Urine Protein 2+ H (Negative) Urine Glucose (UA) Negative (Negative) Urine Ketones Negative (Negative) Urine Blood Moderate H (Negative) Urine Nitrite Negative (Negative) Urine Bilirubin Negative (Negative) Urine Urobilinogen <2.0 (<2.0) mg/dL Ur Leukocyte Esterase Large H (Negative) Urine RBC 30 H (0-5) /hpf Urine WBC >182 H (0-5) /hpf Urine WBC Clumps Many H (None) /hpf Ur Squamous Epith Cells 66 H (0-4) /hpf Urine Bacteria Moderate H (None) /hpf Urine Yeast (Budding) Many H (None) /hpf Influenza Type A (PCR) (Not Detectd) Influenza Type B (PCR) (Not Detectd) RSV (PCR) (Not Detectd) SARS-CoV-2 (PCR) (Not Detectd) 03/10/23 03/10/23 03/10/23 Range/Units 09:56 09:56 11:05 WBC (3.8-10.6) k/uL RBC (3.80-5.40) m/uL Hgb (11.4-16.0) gm/dL Hct (34.0-46.0) % MCV (80.0-100.0) fL MCH (25.0-35.0) pg MCHC (31.0-37.0) g/dL RDW (11.5-15.5) % Plt Count (150-450) k/uL MPV Neutrophils % % Lymphocytes % % Monocytes % % Eosinophils % % Basophils % % Neutrophils # (1.3-7.7) k/uL Lymphocytes # (1.0-4.8) k/uL Monocytes # (0-1.0) k/uL Eosinophils # (0-0.7) k/uL Basophils # (0-0.2) k/uL Hypochromasia Anisocytosis Macrocytosis Sodium (137-145) mmol/L Potassium (3.5-5.1) mmol/L Chloride (98-107) mmol/L Carbon Dioxide (22-30) mmol/L Anion Gap mmol/L BUN (7-17) mg/dL Creatinine (0.52-1.04) mg/dL Est GFR (CKD-EPI)AfAm (>60 ml/min/1.73 sqM) Est GFR (CKD-EPI)NonAf (>60 ml/min/1.73 sqM) Glucose (74-99) mg/dL Lactic Ac Sepsis Rflx Y Plasma Lactic Acid Rolly 2.8 H* (0.7-2.0) mmol/L Calcium (8.4-10.2) mg/dL Total Bilirubin (0.2-1.3) mg/dL AST (14-36) U/L ALT (4-34) U/L Alkaline Phosphatase (38-126) U/L Total Protein (6.3-8.2) g/dL Albumin (3.5-5.0) g/dL Urine Color Urine Appearance (Clear) Urine pH (5.0-8.0) Ur Specific [place] (1.001-1.035) Urine Protein (Negative) Urine Glucose (UA) (Negative) Urine Ketones (Negative) Urine Blood (Negative) Urine Nitrite (Negative) Urine Bilirubin (Negative) Urine Urobilinogen (<2.0) mg/dL Ur Leukocyte Esterase (Negative) Urine RBC (0-5) /hpf Urine WBC (0-5) /hpf Urine WBC Clumps (None) /hpf Ur Squamous Epith Cells (0-4) /hpf Urine Bacteria (None) /hpf Urine Yeast (Budding) (None) /hpf Influenza Type A (PCR) Not Detected (Not Detectd) Influenza Type B (PCR) Not Detected (Not Detectd) RSV (PCR) Not Detected (Not Detectd) SARS-CoV-2 (PCR) Not Detected (Not Detectd) Disposition <Valentin Escalante - Last Filed: 03/10/23 09:55> Decision Time: 15:07 <Shaun Hassan - Last Filed: 03/10/23 15:07> Clinical Impression: SIRS (systemic inflammatory response syndrome) Disposition: ADMITTED IP TO THIS [facility] Condition: Serious Referrals: Naeem Herr MD [Primary Care Provider] - 1-2 days
[2023-03-10 11:00] LABS: Anisocytosis Slight; Basophils # (A) 0.1 k/uL (0-0.2); Basophils % (A) 0 %; Eosinophils # (A) 0.1 k/uL (0-0.7); Eosinophils % (A) 0 %; HCT 31.5 % (34.0-46.0); HGB 10.1 gm/dL (11.4-16.0); Hypochromasia Moderate; Lymphocytes % (A) 5 %; MCH 30.7 pg (25.0-35.0); MCHC 32.1 g/dL (31.0-37.0); MCV 95.8 fL (80.0-100.0); Macrocytosis Slight; Mean Platelet Volume 10.8; Monocytes # (A) 0.9 k/uL (0-1.0); Monocytes % (A) 4 %; Neutrophils % (A) 89 %; Platelet Count 223 k/uL (150-450); RBC 3.29 m/uL (3.80-5.40); RDW 18.2 % (11.5-15.5); WBC 21.2 k/uL (3.8-10.6)
[2023-03-10 11:16] LABS: ALT 20 U/L (4-34); AST 28 U/L (14-36); African American GFR (CKD) 14 (>60 ml/min/1.73 sqM); Albumin 3.8 g/dL (3.5-5.0); Alkaline Phosphatase 125 U/L (38-126); Anion Gap 15 mmol/L; Blood Urea Nitrogen 40 mg/dL (7-17); Calcium 8.9 mg/dL (8.4-10.2); Carbon Dioxide 25 mmol/L (22-30); Chloride 94 mmol/L (98-107); Glucose 180 mg/dL (74-99); Non-African American GFR(CKD) 12 (>60 ml/min/1.73 sqM); Sodium 134 mmol/L (137-145); Total Bilirubin 1.1 mg/dL (0.2-1.3); Total Protein 7.6 g/dL (6.3-8.2)
--- NOTE | 2023-03-10 11:28 | XR ---
EXAMINATION TYPE: XR chest 2V DATE OF EXAM: 03/10/2023 COMPARISON: 10/29/2022 HISTORY: Shortness of breath TECHNIQUE: Frontal and lateral views of the chest are obtained. FINDINGS: Scattered senescent parenchymal changes noted. Hyperinflation compatible with COPD. Large bore centra l venous line noted be in place. Cardiac valvular prosthesis. Mild increased density without focal consolidation right upper lobe could reflect developing infiltra te. Correlate clinically. Heart size is stable. Mediastinal structures are stable and grossly unremarkable. No evidence for hilar prominence. Degenerative changes dorsal spine. IMPRESSION: 1. Mild increased density without focal consolidation right upper lobe could reflect developing infil trate. Correlate clinically.
[2023-03-10 12:38] LABS: Appearance,Urine Turbid (Clear); Bacteria,Urine Moderate /hpf; Bilirubin,Urine Negative (Negative); Blood,Urine Moderate (Negative); Budding Yeast,Urine Many /hpf; Color,Urine Red; Glucose,Urine (UA) Negative (Negative); Ketones,Urine Negative (Negative); Leukocyte Esterase,Urine Large (Negative); Nitrite,Urine Negative (Negative); PH, Urine 5.5 (5.0-8.0); Protein,Urine 2+ (Negative); RBC,Urine 30 /hpf (0-5); Squamous Epithelial Cell,Urine 66 /hpf (0-4); Urobilinogen,Urine <2.0 mg/dL (<2.0); WBC,Urine >182 /hpf (0-5)
[2023-03-10] MEDS ORDERED: VANCOMYCIN IV PER PHARMACY 1 EACH MISC MISCELLANE PRN (13:40)
[2023-03-10] MEDS ORDERED: LEVOFLOXACIN 750MG-D5W PMX 750 MG in DEXTROSE/WATER 1 150ML.BAG IVPB STA (13:42)
[2023-03-10] MEDS ORDERED: CEFEPIME 2 GM in SODIUM CHLORIDE 0.9% 100 ML IVPB STA (14:15)
--- NOTE | 2023-03-10 14:36 | CT ---
EXAMINATION TYPE: CT abdomen pelvis w con DATE OF EXAM: 03/10/2023 COMPARISON: 06/19/2021 HISTORY: fever unknown origin, right flank pain. on HD CT DLP: 1149.2 mGycm CONTRAST: CT scan of the abdomen and pelvis is performed without Oral Contrast and with IV Contrast, patient in jected with 80ml mL of Isovue 300. FINDINGS: LUNG BASES-: No visible nodule. No infiltrate. LIVER/GB: Peripheral hepatic nodularity may reflect underlying cirrhosis. No calcified gallstones. No space occupying hepatic lesion. Biliary tree is of normal caliber. PANCREAS: No inflammation. No distinct mass. SPLEEN: No splenic enlargement. No lesion seen. ADRENALS: No nodule. No thickening. KIDNEYS/BLADDER: Moderate right-sided hydronephrosis. Right-sided ureteral stent is in place. There i s urothelial enhancement and thickening ingesting underlying urothelial infection. There is decompres sed urinary bladder with wall thickening may reflect cystitis. No obstructing calculus is seen. There is right renal edema and perinephric stranding noted. No nephrolithiasis. No distinct renal mass. BOWEL: Normal appendix. Normal bowel caliber. No inflammation. GENITAL ORGANS: No gross abnormality. LYMPH NODES: No greater than 1cm abdominal or pelvic lymph nodes are appreciated. AORTA: No significant abnormality. OSSEOUS STRUCTURES: Severe degenerative disc space narrowing and spondylosis. Grade 1 anterolisthesis L4 and L5. OTHER: No significant additional abnormality is seen. IMPRESSION: 1. Moderate right-sided hydronephrosis. Right-sided ureteral stent is in place. There is urothelial e nhancement and thickening ingesting underlying urothelial infection. There is decompressed urinary bl adder with wall thickening may reflect cystitis. No obstructing calculus is seen. There is right ember l edema and perinephric stranding noted. 2. Findings suspicious for cirrhotic liver disease.
[2023-03-10] MEDS ORDERED: VANCOMYCIN 1,250 MG in SODIUM CHLORIDE 0.9% 250 ML IVPB ONE (15:00)
[2023-03-10] MEDS ORDERED: ACETAMINOPHEN TAB 325 MG TAB PO PRN (15:34)
[2023-03-10] MEDS ORDERED: NALOXONE 0.4 MG/ML 1 ML VIAL IV PRN (15:34)
[2023-03-10] MEDS ORDERED: LORATADINE 10 MG TAB PO PRN (15:43)
[2023-03-10] MEDS ORDERED: LACTULOSE 20 GM/30 ML CUP PO PRN (15:43)
[2023-03-10] MEDS ORDERED: SODIUM CHLORIDE 0.9% 1,000 ML IV SCH (15:45)
--- NOTE | 2023-03-10 15:59 | P.HPIM ---
History of Present Illness H&P Date: 03/10/23 83-year-old female with PMH of ESRD on hemodialysis MWF, COPD, diabetes mellitus, hypertension, dyslipidemia, hypothyroidism presents the ED for fever and chills ongoing for the past 2 days. Also reports dysuria and right flank pain. Other symptoms include confusion, generalized weakness. Symptoms started after last hemodialysis session yesterday. 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 03/06 Underwent RUE fistulogram and thrombolysis with Dr. Griggs. 03/04 Underwent right ureteral stent replacement with Dr. Peterson. Has hemodialysis catheter that was placed in the left shoulder a couple months ago by Dr. Khan at [facility]. In the ED she underwent extensive evaluation. Hypotensive BP as low as 82/46. HR 90s. CBC WBC count 21.2, Hg 10.1. CMP Na 134, Cl 94, BUN 40, Cr 3.31, glu 180. Lactic acid 2.8. UA large LE with > 182 WBCs. Flu, RSV, COVID negative. CXR increased density RUL. CT AP moderate right hydronephrosis, urothelial enhancement and thickening, cystitis, right renal edema and perinephric stranding, cirrhotic liver disease. Pertinent positives and negatives as discussed in HPI, a complete review of systems was performed and all other systems are negative. General: non toxic, no distress, appears at stated age Derm: warm, dry Head: atraumatic, normocephalic, symmetric Eyes: EOMI, no lid lag, anicteric sclera Cardiovascular: S1S2 tachy, no murmur Lungs: Decreased BS bilateral, no rhonchi, no rales , no accessory muscle use Abd: RLQ TTP without rebound. Slightly distended. Soft. R CVA tenderness Ext: no gross muscle atrophy, no edema, no contractures, R chest permacath, LUE fistula with stitches Neuro: no focal neuro deficits Psych: Alert, oriented, appropriate affect Based on my assessment of this patient, this patient meets a high complexity level of care. Patient has an acute diagnosis of sepsis related to pyelonephritis in the setting of recent uretral stent placement that poses a threat to life or bodily function. Severe sepsis due to pyelonephritis with recent uretral stent placement: Bolus 1L NS. Start NS at 75 cc/hr. Start Daptomycin 500 mg IV Q48H and Cefepime 2g IV Q8H. History of VRE. Obtain BCx and UCx. Telemetry monitoring. Infectious disease and Urology consulted. Acute metabolic encephalopathy related to above. Lactic acidosis: IV hydration as above. Trend until neg. Normocytic anemia: Transfuse if Hg < 7. ESRD on HD MWF: Nephrology consult. Chronic conditions: COPD, diabetes mellitus, hypertension, dyslipidemia, hypothyroidism CODE STATUS: NO CODE DVT Prophylaxis: Heparin SQ GI Prophylaxis: Protonix IV Designated medical POA if patient is not able to make medical decisions for themselves: Son I have reviewed the following dairy consultant notes: I have reviewed the results of the following tests: As above. I have ordered the following tests: As above. I have discussed the care of this patient with the following independent h istorian: I have independently interpreted the following test below: I have discussed the management of this patient with the following physician: Past Medical History Past Medical History: COPD, Diabetes Mellitus, Fibromyalgia, GERD/Reflux, Hyperlipidemia, Hypertension, Osteoarthritis (OA), Renal Disease, Thyroid Disorder Additional Past Medical History / Comment(s): hypothyroidism, chronic back/neck pain-pain rt leg and walks with walker, mitral valve murmur, hemodialysis MWF-av access rt chest, c diff yrs ago when took clindamycin for tooth extraction,UTI,has lung nodules. has bundle block on ekgs, cystitis. controls diabetes with diet. takes carvedilol if Systolic over 150.hasnt needed,. , small open area on coccyx that she normally wears a cushion pad. History of Any Multi-Drug Resistant Organisms: C-DIFF Date of last positivie culture/infection: 2016 MDRO Source:: stool Past Surgical History: Hysterectomy, Joint Replacement Additional Past Surgical History / Comment(s): neck [id number] surgery, heart aortic valve replacement, rt ureter stent x 3, kristi knee replacements, left forearm graft for Hemodialysis, right subclavian HD cath 11/2022 Past Anesthesia/Blood Transfusion Reactions: No Reported Reaction Additional Past Anesthesia/Blood Transfusion Reaction / Comment(s): states "no problems with intubation but was told by Anesthesia vocal cords are anterior", no problems with prior blood transfusion. adopted Past Psychological History: No Psychological Hx Reported Smoking Status: Never smoker Past Alcohol Use History: None Reported Past Drug Use History: None Reported - Past Family History Family Family Medical History: No Reported History Additional Family Medical History / Comment(s): adopted Medications and Allergies Home Medications Medication Instructions Recorded Confirmed Type Albuterol Inhaler [Ventolin Hfa 2 puff INHALATION RT-Q4H PRN 06/19/21 03/10/23 History Inhaler] Levothyroxine Sodium [Synthroid] 88 mcg PO QAM 06/19/21 03/10/23 History Omeprazole 40 mg PO QAM 06/19/21 03/10/23 History Tamsulosin [Flomax] 0.4 mg PO HS 02/03/22 03/10/23 History Hyoscyamine Sulfate [Levsin] 0.125 mg PO TID 07/08/22 03/10/23 History Loratadine [Claritin] 10 mg PO DAILY PRN 07/28/22 03/10/23 History Atorvastatin [Lipitor] 40 mg PO HS 09/08/22 03/10/23 History Mirabegron [Myrbetriq] 50 mg PO HS 10/19/22 03/10/23 History Multivitamins, Thera [Multivitamin 1 tab PO HS 10/19/22 03/10/23 History (formulary)] Ferrous Sulfate [Iron (65 MG 325 mg PO BID 12/25/22 03/10/23 History Elemental)] Lactulose 20 gm PO TID PRN 12/25/22 03/10/23 History Sevelamer [Renvela] 800 mg PO W/SUPPER 12/25/22 03/10/23 History Acetaminophen Tab [Tylenol] 650 mg PO Q6HR PRN tab 01/03/23 03/10/23 Rx Pregabalin [Lyrica] 25 mg PO DAILY #3 cap 01/03/23 03/10/23 Rx Pregabalin [Lyrica] 50 mg PO HS #3 cap 01/03/23 03/10/23 Rx HYDROcodone/APAP 7.5-325MG [[place] 1 tab PO Q6HR 03/10/23 03/10/23 History 7.5-325] Vitamin B Complex 1 cap PO DAILY 03/10/23 03/10/23 History carvediloL [Coreg] 3.125 mg PO BID PRN 03/10/23 03/10/23 History Allergies Allergy/AdvReac Type Severity Reaction Status Date / Time Penicillins Allergy Anaphylaxis Verified 03/10/23 15:28 Sulfa (Sulfonamide Allergy Rash/Hives Verified 03/10/23 15:28 Antibiotics) clindamycin AdvReac c diff Verified 03/10/23 15:28 morphine AdvReac Nausea & Verified 03/10/23 15:28 Vomiting Physical Exam Vitals: Vital Signs Temp Pulse Resp BP Pulse Ox 03/10/23 15:37 96 16 101/34 97 03/10/23 15:07 18 93/40 03/10/23 13:44 97.9 F 118/53 03/10/23 11:54 98.0 F 85 18 106/56 100 03/10/23 09:47 98.2 F 91 18 82/46 96 Intake and Output 03/10/23 03/10/23 03/10/23 06:59 14:59 22:59 Other: Weight 72.575 kg Results CBC & Chem 7: 03/10/23 09:56 03/10/23 09:56 Labs: Abnormal Lab Results - Last 24 Hours (Table) 03/10/23 03/10/23 03/10/23 Range/Units 09:56 09:56 09:56 WBC 21.2 H (3.8-10.6) k/uL RBC 3.29 L (3.80-5.40) m/uL Hgb 10.1 L (11.4-16.0) gm/dL Hct 31.5 L (34.0-46.0) % RDW 18.2 H (11.5-15.5) % Neutrophils # 19.0 H (1.3-7.7) k/uL Sodium 134 L (137-145) mmol/L Chloride 94 L (98-107) mmol/L BUN 40 H (7-17) mg/dL Creatinine 3.31 H (0.52-1.04) mg/dL Glucose 180 H (74-99) mg/dL Plasma Lactic Acid Rolly (0.7-2.0) mmol/L Urine Appearance Turbid H (Clear) Urine Protein 2+ H (Negative) Urine Blood Moderate H (Negative) Ur Leukocyte Esterase Large H (Negative) Urine RBC 30 H (0-5) /hpf Urine WBC >182 H (0-5) /hpf Urine WBC Clumps Many H (None) /hpf Ur Squamous Epith Cells 66 H (0-4) /hpf Urine Bacteria Moderate H (None) /hpf Urine Yeast (Budding) Many H (None) /hpf 03/10/23 Range/Units 09:56 WBC (3.8-10.6) k/uL RBC (3.80-5.40) m/uL Hgb (11.4-16.0) gm/dL Hct (34.0-46.0) % RDW (11.5-15.5) % Neutrophils # (1.3-7.7) k/uL Sodium (137-145) mmol/L Chloride (98-107) mmol/L BUN (7-17) mg/dL Creatinine (0.52-1.04) mg/dL Glucose (74-99) mg/dL Plasma Lactic Acid Rolly 2.8 H* (0.7-2.0) mmol/L Urine Appearance (Clear) Urine Protein (Negative) Urine Blood (Negative) Ur Leukocyte Esterase (Negative) Urine RBC (0-5) /hpf Urine WBC (0-5) /hpf Urine WBC Clumps (None) /hpf Ur Squamous Epith Cells (0-4) /hpf Urine Bacteria (None) /hpf Urine Yeast (Budding) (None) /hpf
[2023-03-10] MEDS ORDERED: CEFEPIME 2 GM in SODIUM CHLORIDE 0.9% 100 ML IVPB SCH (16:00)
[2023-03-10] MEDS ORDERED: DAPTOmycin 500 MG in SODIUM CHLORIDE 0.9% 50 ML IVPB SCH (17:00)
[2023-03-10] MEDS ORDERED: ACETAMINOPHEN TAB 325 MG TAB PO STA (17:49)
[2023-03-10] MEDS: SODIUM CHLORIDE 0.9% 500 ML 500 ML IV SCH (17:51)
[2023-03-10] MEDS: HEPARIN SODIUM,PORCINE 5,000 UNIT/ML 1 ML VIAL SQ SCH ×2 (17:53→23:33)
[2023-03-10] MEDS: SEVELAMER 800 MG TAB PO SCH (17:55)
[2023-03-10] MEDS: HYDROcodone/APAP 7.5-325MG 1 EACH TAB PO SCH (17:55)
[2023-03-10] MEDS: PREGABALIN 50 MG CAP PO SCH (20:56)
[2023-03-10] MEDS ORDERED: ATORVASTATIN 40 MG TAB PO SCH (21:00)
[2023-03-10 21:01] LABS: Glucose,Whole Blood 124 mg/dL (70-110)
[2023-03-11] MEDS: HYDROcodone/APAP 7.5-325MG 1 EACH TAB PO SCH ×5 (01:00→23:45)
[2023-03-11] MEDS: LEVOTHYROXINE 88 MCG TAB PO SCH (05:16)
[2023-03-11 06:14] LABS: Glucose,Whole Blood 112 mg/dL (70-110)
--- NOTE | 2023-03-11 07:08 | P.CONS ---
History of Present Illness - Reason for Consult Consult date: 03/10/23 Sirs/sepsis Requesting physician: Shaun Hassan - Chief Complaint Fever 1 day - History of Present Illness Patient is a 83-year-old female with a past medical history significant for COPD diabetes mellitus fibromyalgia hyperlipidemia hypertension end-stage renal disease on hemodialysis through the left arm AV fistula/graft patient has been brought into the hospital for evaluation of fever of 102 F at home patient recently did have intervention to the left arm fistula by Dr. Oro and also have a stent removed by Dr. Peterson from the urology patient has been complaining of fever with chills not feeling well patient denies having any headache or URI symptoms no chest pain shortness of breath wheezing cough no abdominal pain no diarrhea patient mention she hardly makes any urine with March the patient has been evaluated on presentation the hospital the patient was afebrile however she did spike a fever of 102.5 F patient was mildly tachycardic with marginal blood pressure patient did have appointment of 21.2 creatinine 3.31 lactic acid 2.8 urine has been positive last urine culture in February 24, 2023 was an E. coli that is sensitive pathogen however she also grew VRE in January patient was started on cefepime and daptomycin benjamin de los santos was consulted for further management of antibiotic therapy Review of Systems Positive point and negatives has been mentioned in the HPI, complete review of systems was performed and all other systems are negative Past Medical History Past Medical History: COPD, Diabetes Mellitus, Fibromyalgia, GERD/Reflux, Hyperlipidemia, Hypertension, Osteoarthritis (OA), Renal Disease, Thyroid Disorder Additional Past Medical History / Comment(s): hypothyroidism, chronic back/neck pain-pain rt leg and walks with walker, mitral valve murmur, hemodialysis MWF-av access rt chest, c diff yrs ago when took clindamycin for tooth extraction,UTI,has lung nodules. has bundle block on ekgs, cystitis. controls diabetes with diet. takes carvedilol if Systolic over 150.hasnt needed,. , small open area on coccyx that she normally wears a cushion pad. History of Any Multi-Drug Resistant Organisms: C-DIFF Year Discovered:: 2017 MDRO Source:: stool Past Surgical History: Hysterectomy, Joint Replacement Additional Past Surgical History / Comment(s): neck gtuwkkk-q-fjqie surgery, heart aortic valve replacement, rt ureter stent x 3, kristi knee replacements, left forearm graft for Hemodialysis, right subclavian HD cath 11/2022 Past Anesthesia/Blood Transfusion Reactions: No Reported Reaction Additional Past Anesthesia/Blood Transfusion Reaction / Comm: states "no problems with intubation but was told by Anesthesia vocal cords are anterior", no problems with prior blood transfusion. adopted Past Psychological History: No Psychological Hx Reported Smoking Status: Never smoker Past Alcohol Use History: None Reported Past Drug Use History: None Reported - Past Family History Family Family Medical History: No Reported History Additional Family Medical History / Comment(s): adopted Medications and Allergies Home Medications Medication Instructions Recorded Confirmed Type Albuterol Inhaler [Ventolin Hfa 2 puff INHALATION RT-Q4H PRN 06/19/21 03/10/23 History Inhaler] Levothyroxine Sodium [Synthroid] 88 mcg PO QAM 06/19/21 03/10/23 History Omeprazole 40 mg PO QAM 06/19/21 03/10/23 History Tamsulosin [Flomax] 0.4 mg PO HS 02/03/22 03/10/23 History Hyoscyamine Sulfate [Levsin] 0.125 mg PO TID 07/08/22 03/10/23 History Loratadine [Claritin] 10 mg PO DAILY PRN 07/28/22 03/10/23 History Atorvastatin [Lipitor] 40 mg PO HS 09/08/22 03/10/23 History Mirabegron [Myrbetriq] 50 mg PO HS 10/19/22 03/10/23 History Multivitamins, Thera [Multivitamin 1 tab PO HS 10/19/22 03/10/23 History (formulary)] Ferrous Sulfate [Iron (65 MG 325 mg PO BID 12/25/22 03/10/23 History Elemental)] Lactulose 20 gm PO TID PRN 12/25/22 03/10/23 History Sevelamer [Renvela] 800 mg PO W/SUPPER 12/25/22 03/10/23 History Acetaminophen Tab [Tylenol] 650 mg PO Q6HR PRN tab 01/03/23 03/10/23 Rx Pregabalin [Lyrica] 25 mg PO DAILY #3 cap 01/03/23 03/10/23 Rx Pregabalin [Lyrica] 50 mg PO HS #3 cap 01/03/23 03/10/23 Rx HYDROcodone/APAP 7.5-325MG [[place] 1 tab PO Q6HR 03/10/23 03/10/23 History 7.5-325] Vitamin B Complex 1 cap PO DAILY 03/10/23 03/10/23 History carvediloL [Coreg] 3.125 mg PO BID PRN 03/10/23 03/10/23 History Allergies Allergy/AdvReac Type Severity Reaction Status Date / Time Penicillins Allergy Anaphylaxis Verified 03/10/23 15:28 Sulfa (Sulfonamide Allergy Rash/Hives Verified 03/10/23 15:28 Antibiotics) clindamycin AdvReac c diff Verified 03/10/23 15:28 morphine AdvReac Nausea & Verified 03/10/23 15:28 Vomiting Physical Exam Vitals: Vital Signs Temp Pulse Resp BP Pulse Ox 03/10/23 15:37 96 16 101/34 97 03/10/23 15:07 18 93/40 03/10/23 13:44 97.9 F 118/53 03/10/23 11:54 98.0 F 85 18 106/56 100 03/10/23 09:47 98.2 F 91 18 82/46 96 Intake and Output 03/10/23 03/10/23 03/10/23 06:59 14:59 22:59 Other: Weight 72.575 kg GENERAL DESCRIPTION: Elderly female lying in bed, no distress. No tachypnea or accessory muscle of respiration use. HEENT: Shows Pallor , no scleral icterus. Oral mucous membrane is dry. No pharyngeal erythema or thrush NECK: Trachea central, no thyromegaly. LUNGS: Unlabored breathing. Clear to auscultation anteriorly. No wheeze or scrap preparer ckle. HEART: S1, S2, regular rate and rhythm. No loud murmur ABDOMEN: Soft, no tenderness , guarding or rigidity, no organomegaly EXTREMITIES: Left arm AV fistula site looks clean with minimal bruising SKIN: No rash, no masses palpable. NEUROLOGICAL: The patient is awake, alert, oriented x3, mood and affect normal. Results CBC & Chem 7: 03/12/23 07:37 03/12/23 07:37 Labs: Abnormal Lab Results - Last 24 Hours (Table) 03/10/23 03/10/23 03/10/23 Range/Units 09:56 09:56 09:56 WBC 21.2 H (3.8-10.6) k/uL RBC 3.29 L (3.80-5.40) m/uL Hgb 10.1 L (11.4-16.0) gm/dL Hct 31.5 L (34.0-46.0) % RDW 18.2 H (11.5-15.5) % Neutrophils # 19.0 H (1.3-7.7) k/uL Sodium 134 L (137-145) mmol/L Chloride 94 L (98-107) mmol/L BUN 40 H (7-17) mg/dL Creatinine 3.31 H (0.52-1.04) mg/dL Glucose 180 H (74-99) mg/dL Plasma Lactic Acid Rolly (0.7-2.0) mmol/L Urine Appearance Turbid H (Clear) Urine Protein 2+ H (Negative) Urine Blood Moderate H (Negative) Ur Leukocyte Esterase Large H (Negative) Urine RBC 30 H (0-5) /hpf Urine WBC >182 H (0-5) /hpf Urine WBC Clumps Many H (None) /hpf Ur Squamous Epith Cells 66 H (0-4) /hpf Urine Bacteria Moderate H (None) /hpf Urine Yeast (Budding) Many H (None) /hpf 03/10/23 Range/Units 09:56 WBC (3.8-10.6) k/uL RBC (3.80-5.40) m/uL Hgb (11.4-16.0) gm/dL Hct (34.0-46.0) % RDW (11.5-15.5) % Neutrophils # (1.3-7.7) k/uL Sodium (137-145) mmol/L Chloride (98-107) mmol/L BUN (7-17) mg/dL Creatinine (0.52-1.04) mg/dL Glucose (74-99) mg/dL Plasma Lactic Acid Rolly 2.8 H* (0.7-2.0) mmol/L Urine Appearance (Clear) Urine Protein (Negative) Urine Blood (Negative) Ur Leukocyte Esterase (Negative) Urine RBC (0-5) /hpf Urine WBC (0-5) /hpf Urine WBC Clumps (None) /hpf Ur Squamous Epith Cells (0-4) /hpf Urine Bacteria (None) /hpf Urine Yeast (Budding) (None) /hpf Assessment and Plan (1) Sepsis Current Visit: No Status: Acute Code(s): A41.9 - SEPSIS, UNSPECIFIED ORGANISM SNOMED Code(s): 44152280 (2) Urinary tract infection Current Visit: No Status: Acute Code(s): N39.0 - URINARY TRACT INFECTION, SITE NOT SPECIFIED SNOMED Code(s): 19669812 Plan: 1patient is in the hospital with sepsis in this patient who did have a fever elevated white count elevated lactic acid source could be urinary as the patient recently did have a ureteral stent removed and recent urine culture positive for E. coli as well as VRE, patient did have a recent admission to the left forearm AV fistula however that site has some bruising but no significant cellulitis 2blood and urine culture have been obtained and results will be followed 3patient to continue with empiric daptomycin and cefepime while waiting for the cultures to be finalized We will follow on clinical condition and cultures to further adjust medication if needed Thank you for this consultation we will follow the patient along with you Dictation was produced using [employer] dictation software. please excuse any grammatical, word or spelling errors. Time with Patient: Greater than 30
[2023-03-11] MEDS ORDERED: PANTOPRAZOLE 40 MG/10 ML VIAL IV SCH (09:00)
[2023-03-11] MEDS: PREGABALIN 25 MG CAP PO SCH (09:06)
[2023-03-11] MEDS: HEPARIN SODIUM,PORCINE 5,000 UNIT/ML 1 ML VIAL SQ SCH ×3 (09:06→23:45)
[2023-03-11] MEDS: PANTOPRAZOLE 40 MG TABLET PO SCH (09:06)
[2023-03-11 09:29] LABS: Anisocytosis Slight; HCT 27.3 % (34.0-46.0); HGB 8.8 gm/dL (11.4-16.0); Hypochromasia Moderate; MCH 31.1 pg (25.0-35.0); MCHC 32.2 g/dL (31.0-37.0); MCV 96.5 fL (80.0-100.0); Macrocytosis Slight; Mean Platelet Volume 10.3; Platelet Count 177 k/uL (150-450); RBC 2.83 m/uL (3.80-5.40); RDW 18.2 % (11.5-15.5); WBC 17.8 k/uL (3.8-10.6)
[2023-03-11 09:54] LABS: African American GFR (CKD) 12 (>60 ml/min/1.73 sqM); Anion Gap 14 mmol/L; Blood Urea Nitrogen 48 mg/dL (7-17); Calcium 8.1 mg/dL (8.4-10.2); Carbon Dioxide 21 mmol/L (22-30); Chloride 96 mmol/L (98-107); Glucose 158 mg/dL (74-99); Non-African American GFR(CKD) 10 (>60 ml/min/1.73 sqM); Potassium 3.7 mmol/L (3.5-5.1); Sodium 131 mmol/L (137-145)
[2023-03-11] MEDS ORDERED: VANCOMYCIN 1,250 MG in SODIUM CHLORIDE 0.9% 250 ML IVPB ONE (10:00)
--- NOTE | 2023-03-11 10:22 | P.NPCON ---
History of Present Illness - Reason for Consult end stage renal disease - History of Present Illness Reason for consultation: End-stage renal disease History of present illness: Patient is 83-year-old female seen in new consultation for end-stage renal disease. She is maintained on hemodialysis on Thursday schedule. Patient has a right chest permacath and also left upper extremity AV graft. Patient states her graft was used for Thursday's treatment but is now clotted. She had undergone fistulogram with balloon angioplasty of the AV graft on 03/06/2023. She has been evaluated by vascular surgery. Patient came to the hospital due to fever and shakiness. Patient had a fever of 102F. According to the family patient was also confused. Patient also has history of right- sided hydronephrosis with right ureteral stent. She underwent cystoscopy with exchange of the right ureteral stent on 03/04/2023. Patient does admit to dysuria. She tested negative for influenza, RSV as well as COVID-19. She denies chest pain or shortness of breath. No vomiting or diarrhea. She does white ve an elevated white count. She's being followed by infectious disease. She is currently on IV antibiotics. She underwent CAT scan of the abdomen and pelvis which showed right-sided hydronephrosis and urothelial enhancement suggestive of urothelial infection. Vital signs are stable. General: No acute distress. HEENT: Head exam is unremarkable. LUNGS: No audible rhonchi or wheezes. HEART: Rate and Rhythm are regular. ABDOMEN: Nontender, obese. EXTREMITITES: No edema. Past Medical History Past Medical History: COPD, Diabetes Mellitus, Fibromyalgia, GERD/Reflux, Hyperlipidemia, Hypertension, Osteoarthritis (OA), Renal Disease, Thyroid Disorder Additional Past Medical History / Comment(s): hypothyroidism, chronic back/neck pain-pain rt leg and walks with walker, mitral valve murmur, hemodialysis MWF-av access rt chest, c diff yrs ago when took clindamycin for tooth extraction,UTI,has lung nodules. has bundle block on ekgs, cystitis. controls diabetes with diet. takes carvedilol if Systolic over 150.hasnt needed,. , small open area on coccyx that she normally wears a cushion pad. History of Any Multi-Drug Resistant Organisms: C-DIFF Date of last positivie culture/infection: 2016 MDRO Source:: stool Past Surgical History: Hysterectomy, Joint Replacement Additional Past Surgical History / Comment(s): neck phklygi-f-jxomr surgery, heart aortic valve replacement, rt ureter stent x 3, kristi knee replacements, left forearm graft for Hemodialysis, right subclavian HD cath 11/2022 Past Anesthesia/Blood Transfusion Reactions: No Reported Reaction Additional Past Anesthesia/Blood Transfusion Reaction / Comment(s): states "no problems with intubation but was told by Anesthesia vocal cords are anterior", no problems with prior blood transfusion. adopted Past Psychological History: No Psychological Hx Reported Smoking Status: Never smoker Past Alcohol Use History: None Reported Past Drug Use History: None Reported - Past Family History Family Family Medical History: No Reported History Additional Family Medical History / Comment(s): adopted Medications and Allergies Home Medications Medication Instructions Recorded Confirmed Type Albuterol Inhaler [Ventolin Hfa 2 puff INHALATION RT-Q4H PRN 06/19/21 03/10/23 History Inhaler] Levothyroxine Sodium [Synthroid] 88 mcg PO QAM 06/19/21 03/10/23 History Omeprazole 40 mg PO QAM 06/19/21 03/10/23 History Tamsulosin [Flomax] 0.4 mg PO HS 02/03/22 03/10/23 History Hyoscyamine Sulfate [Levsin] 0.125 mg PO TID 07/08/22 03/10/23 History Loratadine [Claritin] 10 mg PO DAILY PRN 07/28/22 03/10/23 History Atorvastatin [Lipitor] 40 mg PO HS 09/08/22 03/10/23 History Mirabegron [Myrbetriq] 50 mg PO HS 10/19/22 03/10/23 History Multivitamins, Thera [Multivitamin 1 tab PO HS 10/19/22 03/10/23 History (formulary)] Ferrous Sulfate [Iron (65 MG 325 mg PO BID 12/25/22 03/10/23 History Elemental)] Lactulose 20 gm PO TID PRN 12/25/22 03/10/23 History Sevelamer [Renvela] 800 mg PO W/SUPPER 12/25/22 03/10/23 History Acetaminophen Tab [Tylenol] 650 mg PO Q6HR PRN tab 01/03/23 03/10/23 Rx Pregabalin [Lyrica] 25 mg PO DAILY #3 cap 01/03/23 03/10/23 Rx Pregabalin [Lyrica] 50 mg PO HS #3 cap 01/03/23 03/10/23 Rx HYDROcodone/APAP 7.5-325MG [[place] 1 tab PO Q6HR 03/10/23 03/10/23 History 7.5-325] Vitamin B Complex 1 cap PO DAILY 03/10/23 03/10/23 History carvediloL [Coreg] 3.125 mg PO BID PRN 03/10/23 03/10/23 History Allergies Allergy/AdvReac Type Severity Reaction Status Date / Time Penicillins Allergy Anaphylaxis Verified 03/10/23 15:28 Sulfa (Sulfonamide Allergy Rash/Hives Verified 03/10/23 15:28 Antibiotics) clindamycin AdvReac c diff Verified 03/10/23 15:28 morphine AdvReac Nausea & Verified 03/10/23 15:28 Vomiting Physical Exam Vitals: Vital Signs Temp Pulse Pulse Pulse Resp BP BP 03/11/23 09:00 98.4 F 89 18 111/53 03/11/23 05:00 101/62 03/11/23 04:00 98.9 F 97 17 97/58 03/11/23 00:00 99 F 91 18 95/57 03/10/23 19:26 100.9 F H 94 20 100/45 03/10/23 19:16 99.9 F H 93 18 101/71 03/10/23 17:42 102.5 F H 108 H 20 99/58 03/10/23 15:37 96 16 101/34 03/10/23 15:07 18 93/40 03/10/23 13:44 97.9 F 118/53 03/10/23 11:54 98.0 F 85 18 106/56 Pulse Ox 03/11/23 09:00 95 03/11/23 05:00 03/11/23 04:00 94 L 03/11/23 00:00 99 03/10/23 19:26 99 03/10/23 19:16 97 03/10/23 17:42 95 03/10/23 15:37 97 03/10/23 15:07 03/10/23 13:44 03/10/23 11:54 100 Intake and Output 03/10/23 03/11/2303/11/23 22:59 06:59 14:59 Output Total 300 200 Balance -300 -200 Output: Urine 300 200 Other: Voiding Method External Catheter External Catheter # Voids 1 Weight 72.575 kg Results - Lab Results Most recent lab results Calcium 8.1 mg/dL (8.4-10.2) L 03/11/23 08:51 03/11/23 08:51 03/11/23 08:51 Assessment and Plan Plan: Assessment: 1. End-stage renal disease maintained on hemodialysis on Thursday schedule. 2. Clotted AV graft. Currently using right chest permacath. Patient did undergo fistulogram with balloon angioplasty earlier this month. 3. Right-sided hydronephrosis with exchange of the right ureteral stent on 03/04/2023. 4. Sepsis. Possibly urinary source. ID following. 5. Chronic kidney disease mineral bone disease maintained on Renvela. 6. Anemia of chronic kidney disease. 7. Hyponatremia secondary to chronic kidney disease. Plan: Hemodialysis today. Follow-up cultures. Check cultures from the permacath as well. Add Aranesp. Check phosphorus level. Follow-up echocardiogram. Thank you for the consultation. I will continue to follow the patient with you during her hospital stay.
[2023-03-11 11:39] LABS: Glucose,Whole Blood 129 mg/dL (70-110)
--- NOTE | 2023-03-11 11:50 | P.PN ---
Subjective Progress Note Date: 03/11/23 83-year-old female with PMH of ESRD on hemodialysis MWF, COPD, diabetes mellitus, hypertension, dyslipidemia, hypothyroidism presents the ED for fever and chills ongoing for the past 2 days. Also reports dysuria, right flank pain, confusion and generalized weakness. Symptoms started after last hemodialysis session yesterday. 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 03/06 Underwent RUE fistulogram and thrombolysis with Dr. Griggs. 03/04 Underwent right ureteral stent replacement with Dr. Peterson. Has hemodialysis catheter that was placed in the LUE a couple months ago by Dr. Khan at [facility]. In the ED she underwent extensive evaluation. Hypotensive BP as low as 82/46. HR 90s. CBC WBC count 21.2, Hg 10.1. CMP Na 134, Cl 94, BUN 40, Cr 3.31, glu 180. Lactic acid 2.8. UA large LE with > 182 WBCs. Flu, RSV, COVID negative. CXR increased density RUL. CT AP moderate right hydronephrosis, urothelial enhancement and thickening, cystitis, right renal edema and perinephric stranding, cirrhotic liver disease. 03/11 Patient was seen and examined. She reports some SOB and wheezing requesting breathing treatments. Improved fatigue. Mentation improving. CBC WBC 17.8, Hg 8.8. BMP Na 131, Cl 96, bicarb 21, BUN 48, Cr 3.85, glu 158. Repeat lactic acid 1.3. EKG done yesterday shows sinus tachycardia with LBBB, appears similar to previous admissions. Troponin checked elevated at 0.103. Discussed with Dr. García, antibiotics include Daptomycin and Cefepime. Plans for HD today. CBC and BMP ordered and pending. General: non toxic, no distress, appears at stated age Derm: warm, dry Head: atraumatic, normocephalic, symmetric Eyes: EOMI, no lid lag, anicteric sclera Cardiovascular: S1S2 tachy, no murmur Lungs: Decreased BS bilateral, no rhonchi, no rales , no accessory muscle use Abd: RLQ TTP without rebound. Slightly distended. Soft. R CVA tenderness Ext: no gross muscle atrophy, no edema, no contractures, R chest permacath, LUE fistula with stitches Neuro: no focal neuro deficits Psych: Alert, oriented, appropriate affect Based on my assessment of this patient, this patient meets a high complexity level of care. Patient has an acute diagnosis of sepsis related to pyelonephritis in the se tting of recent uretral stent placement that poses a threat to life or bodily function. Severe sepsis due to pyelonephritis with recent uretral stent placement: Continue NS at 75 cc/hr. Daptomycin 500 mg IV Q48H and Cefepime 2g IV Q8H. History of VRE. BCx and UCx. Telemetry monitoring. Infectious disease and Urology consulted. Troponin elevation: No chest pain. Possible demand ischemia. Poor renal clearance. Trend Trop. Obtain Echo. Acute metabolic encephalopathy related to above. Normocytic anemia: Transfuse if Hg < 7. ESRD on HD MWF: Nephrology consult. Resolved: Lactic acidosis. Chronic conditions: COPD, diabetes mellitus, hypertension, dyslipidemia, hypothyroidism CODE STATUS: NO CODE DVT Prophylaxis: Heparin SQ GI Prophylaxis: Protonix IV Designated medical POA if patient is not able to make medical decisions for themselves: Son I have reviewed the following chain sales consultant notes: ID, Nephro note. I have reviewed the results of the following tests: CBC. BMP. Trop. Lactic acid. I have ordered the following tests: Troponin. Echo. CBC. BMP. CXR Pending: BCx. UCx. I have discussed the care of this patient with the following independent historian: I have independently interpreted the following test below: EKG I have discussed the management of this patient with the following physician: Discussed with Dr. García. Objective - Vital Signs Vital signs: Vital Signs Temp 98.9 F 03/11/23 04:00 Pulse 97 03/11/23 04:00 Resp 17 03/11/23 04:00 BP 101/62 03/11/23 05:00 Pulse Ox 94 L 03/11/23 04:00 FiO2 Intake & Output 03/10/23 03/11/23 03/11/23 18:59 06:59 18:59 Output Total 500 Balance -500 Weight 72.575 kg 72.575 kg Output: Urine 500 Other: Voiding Method External Catheter # Voids 1 - Labs CBC & Chem 7: 03/11/23 08:51 03/11/23 08:51 Labs: Abnormal Lab Results - Last 24 Hours (Table) 03/10/23 03/10/23 03/10/23 Range/Units 09:56 09:56 09:56 WBC 21.2 H (3.8-10.6) k/uL RBC 3.29 L (3.80-5.40) m/uL Hgb 10.1 L (11.4-16.0) gm/dL Hct 31.5 L (34.0-46.0) % RDW 18.2 H (11.5-15.5) % Neutrophils # 19.0 H (1.3-7.7) k/uL Sodium 134 L (137-145) mmol/L Chloride 94 L (98-107) mmol/L BUN 40 H (7-17) mg/dL Creatinine 3.31 H (0.52-1.04) mg/dL Glucose 180 H (74-99) mg/dL POC Glucose (mg/dL) (70-110) mg/dL Plasma Lactic Acid Rolly (0.7-2.0) mmol/L Urine Appearance Turbid H (Clear) Urine Protein 2+ H (Negative) Urine Blood Moderate H (Negative) Ur Leukocyte Esterase Large H (Negative) Urine RBC 30 H (0-5) /hpf Urine WBC >182 H (0-5) /hpf Urine WBC Clumps Many H (None) /hpf Ur Squamous Epith Cells 66 H (0-4) /hpf Urine Bacteria Moderate H (None) /hpf Urine Yeast (Budding) Many H (None) /hpf 03/10/23 03/10/23 03/11/23 Range/Units 09:56 21:00 06:12 WBC (3.8-10.6) k/uL RBC (3.80-5.40) m/uL Hgb (11.4-16.0) gm/dL Hct (34.0-46.0) % RDW (11.5-15.5) % Neutrophils # (1.3-7.7) k/uL Sodium (137-145) mmol/L Chloride (98-107) mmol/L BUN (7-17) mg/dL Creatinine (0.52-1.04) mg/dL Glucose (74-99) mg/dL POC Glucose (mg/dL) 124 H 112 H (70-110) mg/dL Plasma Lactic Acid Rolly 2.8 H* (0.7-2.0) mmol/L Urine Appearance (Clear) Urine Protein (Negative) Urine Blood (Negative) Ur Leukocyte Esterase (Negative) Urine RBC (0-5) /hpf Urine WBC (0-5) /hpf Urine WBC Clumps (None) /hpf Ur Squamous Epith Cells (0-4) /hpf Urine Bacteria (None) /hpf Urine Yeast (Budding) (None) /hpf
[2023-03-11] MEDS ORDERED: DARBEPOETIN ALFA 40 MCG/0.4 ML SYRINGE SQ SCH (12:00)
--- NOTE | 2023-03-11 12:12 | XR ---
EXAMINATION TYPE: XR chest 1V portable DATE OF EXAM: 03/11/2023 COMPARISON: NONE HISTORY: Shortness of breath. TECHNIQUE: Single frontal view of the chest is obtained. FINDINGS: The cardiac silhouette is mildly enlarged and there is mild interstitial edema seen throug hout the lungs. There are small bilateral pleural effusions. Right-sided dual-lumen central venous catheter has its catheter tip overlying the superior vena cava. IMPRESSION: Cardiomegaly with mild edema.
--- NOTE | 2023-03-11 12:32 | CA ---
Transthoracic Echo Report Name: Nerissa Lr Age: 83 Gender: F : 1940 Exam Date: 03/11/2023 11:12 Exam Location: [place] [facility] Ht (in): 61 Wt (lb): 160 Ordering Physician: Austyn Mcrae MD Attending/Referring Phys: Assistant Banquet Manager Nina Lea [facility] Procedure CPT: Indications: sepsis Cardiac Hx: Technical Quality: Fair Contrast 1: Total Dose (mL): Contrast 2: Total Dose (mL): MEASUREMENTS (Male / Female) Normal Values 2D ECHO LV Diastolic Diameter PLAX 4.9 cm 4.2 - 5.9 / 3.9 - 5.3 cm LV Systolic Diameter PLAX 3.8 cm IVS Diastolic Thickness 1.3 cm 0.6 - 1.0 / 0.6 - 0.9 cm LVPW Diastolic Thickness 1.2 cm 0.6 - 1.0 / 0.6 - 0.9 cm LV Relative Wall Thickness 0.5 LVOT Diameter 2.0 cm Ascending Aorta Diameter 3.4 cm M-MODE Aortic Root Diameter MM 2.0 cm LA Systolic Diameter MM 3.8 cm LA Ao Ratio MM 1.9 AV Cusp Separation MM 1.2 cm DOPPLER AV Peak Velocity 271.9 cm/s AV Peak Gradient 29.6 mmHg AV Mean Velocity 189.1 cm/s AV Mean Gradient 16.2 mmHg AV Velocity Time Integral 55.6 cm LVOT Peak Velocity 103.0 cm/s LVOT Peak Gradient 4.2 mmHg LVOT Velocity Time Integral 21.5 cm LVOT Stroke Volume 67.5 cm??? LVOT Stroke Volume Index 39.3 ml/m??? LVOT Cardiac Index 3083.8 cm???/min???m??? AV Area Cont Eq vti 1.2 cm??? AV Area Cont Eq pk 1.2 cm??? MV Peak Velocity 221.2 cm/s MV Peak Gradient 19.6 mmHg MV Mean Velocity 163.6 cm/s MV Mean Gradient 11.4 mmHg MV Velocity Time Integral 47.5 cm MV Area PHT 4.3 cm??? Mitral E Point Velocity 119.6 cm/s Mitral A Point Velocity 182.9 cm/s Mitral E to A Ratio 0.7 MV Deceleration Time 177.1 ms TR Peak Velocity 304.4 cm/s TR Peak Gradient 37.1 mmHg Right Atrial Pressure 3.0 mmHg Pulmonary Artery Systolic Pressu 40.1 mmHg Right Ventricular Systolic Press 40.1 mmHg FINDINGS Left Ventricle Moderately increased septal wall thickness. Mildly increased posterior wall thickness. Left ventricular cavity size at the upper limits of normal. Left ventricular ejection fraction is estimated at 40-45%. Mildly reduced left ventricular systolic function. Apical septum hypokinesis. Right Ventricle Mild right ventricular dilatation. Mild pulmonary hypertension. Right Atrium Normal right atrial size. Left Atrium Severe left atrial dilatation. Mitral Valve Mitral valve thickened. Moderate mitral annular calcification with a peak gradient 19.57 mmHg and mean gradients of 11.45 mmHg.mild mitral regurgitation. Aortic Valve Normally functioning bioprosthetic aortic valve without stenosis with a peak gradient of 29.57 mmHg and mean gradient of 16.22 mmHg. No aortic regurgitation. Tricuspid Valve Structurally normal tricuspid valve. Mild tricuspid regurgitation. Pulmonic Valve Pulmonic valve not well visualized. Trace pulmonic regurgitation. Pericardium Minimal pericardial effusion (normal variant). Echo free space anterior to the right ventricle likely represents a fat pad. Aorta Normal size aortic root and proximal ascending aorta. CONCLUSIONS Mild to moderate LV systolic dysfunction Moderate aortic stenosis Normally functioning bioprosthetic valve with a peak gradient of 29 mm and the mean gradient of 16 mm across the valve Previewed by: Dr. Liu Heart MD (Electronically Signed) Final Date: 11 March 2023 12:31
[2023-03-11] MEDS: CEFEPIME 1 GM in SODIUM CHLORIDE 0.9% 50 ML IVPB SCH ×2 (14:04→18:04)
--- NOTE | 2023-03-11 15:58 | P.GSCN ---
History of Present Illness Consult date: 03/11/23 Reason for Consult: Known to patient Requesting physician: Austyn Mcrae History of present illness: This is a pleasant 83-year-old female with a history of end-stage renal disease requiring hemodialysis who had presented to the emergency department for fever and chills. Apparently patient had a max temp of 102 temperature at home. Patient recently treated for urinary tract infection and recently underwent cy stoscopy with exchange of right ureteral stent on 03/04/[address] Peterson. She also underwent left upper extremity loop AV graft thrombectomy with thrombolysis and angioplasty on 03/06/[address] Griggs. Vascular surgery was consulted as patient is known to Dr. Griggs. She gets dialysis Thursday. Patient states she went to dialysis on Thursday and they accessed her left upper extremity loop graft for dialysis without any complications. She also has in place right IJ tunnel catheter. Patient did have leukocytosis on admission with a WBC of 21.2 hemoglobin 10 platelet count 223,000 sodium 134 potassium 4.0 nightly 40 creatinine 3.3. Yesterday she did have max temp here of 102.5 has been afebrile so far today. She denies any pain of her left upper extremity. Sutures are intact. Denies any pain or redness or drainage from her tunneled dialysis catheter. Currently denies any chest pain, shortness of breath, abdominal pain, nausea or vomiting. She states that she was having some right lower quadrant pain for the past 2 days. Review of Systems A 14 point review systems was completed all pertinent positives and negatives as stated in the HPI. Past Medical History Past Medical History: COPD, Diabetes Mellitus, Fibromyalgia, GERD/Reflux, Hyperlipidemia, Hypertension, Osteoarthritis (OA), Renal Disease, Thyroid Disorder Additional Past Medical History / Comment(s): hypothyroidism, chronic back/neck pain-pain rt leg and walks with walker, mitral valve murmur, hemodialysis MWF-av access rt chest, c diff yrs ago when took clindamycin for tooth extraction,UTI,has lung nodules. has bundle block on ekgs, cystitis. controls diabetes with diet. takes carvedilol if Systolic over 150.hasnt needed,. , small open area on coccyx that she normally wears a cushion pad. History of Any Multi-Drug Resistant Organisms: C-DIFF Year Discovered:: 2017 MDRO Source:: stool Past Surgical History: Hysterectomy, Joint Replacement Additional Past Surgical History / Comment(s): neck [id number] surgery, heart aortic valve replacement, rt ureter stent x 3, kristi knee replacements, left forearm graft for Hemodialysis, right subclavian HD cath 11/2022 Past Anesthesia/Blood Transfusion Reactions: No Reported Reaction Additional Past Anesthesia/Blood Transfusion Reaction / Comm: states "no problems with intubation but was told by Anesthesia vocal cords are anterior", n o problems with prior blood transfusion. adopted Past Psychological History: No Psychological Hx Reported Smoking Status: Never smoker Past Alcohol Use History: None Reported Past Drug Use History: None Reported - Past Family History Family Family Medical History: No Reported History Additional Family Medical History / Comment(s): adopted Medications and Allergies Home Medications Medication Instructions Recorded Confirmed Type Albuterol Inhaler [Ventolin Hfa 2 puff INHALATION RT-Q4H PRN 06/19/21 03/10/23 History Inhaler] Levothyroxine Sodium [Synthroid] 88 mcg PO QAM 06/19/21 03/10/23 History Omeprazole 40 mg PO QAM 06/19/21 03/10/23 History Tamsulosin [Flomax] 0.4 mg PO HS 02/03/22 03/10/23 History Hyoscyamine Sulfate [Levsin] 0.125 mg PO TID 07/08/22 03/10/23 History Loratadine [Claritin] 10 mg PO DAILY PRN 07/28/22 03/10/23 History Atorvastatin [Lipitor] 40 mg PO HS 09/08/22 03/10/23 History Mirabegron [Myrbetriq] 50 mg PO HS 10/19/22 03/10/23 History Multivitamins, Thera [Multivitamin 1 tab PO HS 10/19/22 03/10/23 History (formulary)] Ferrous Sulfate [Iron (65 MG 325 mg PO BID 12/25/22 03/10/23 History Elemental)] Lactulose 20 gm PO TID PRN 12/25/22 03/10/23 History Sevelamer [Renvela] 800 mg PO W/SUPPER 12/25/22 03/10/23 History Acetaminophen Tab [Tylenol] 650 mg PO Q6HR PRN tab 01/03/23 03/10/23 Rx Pregabalin [Lyrica] 25 mg PO DAILY #3 cap 01/03/23 03/10/23 Rx Pregabalin [Lyrica] 50 mg PO HS #3 cap 01/03/23 03/10/23 Rx HYDROcodone/APAP 7.5-325MG [Dyess 1 tab PO Q6HR 03/10/23 03/10/23 History 7.5-325] Vitamin B Complex 1 cap PO DAILY 03/10/23 03/10/23 History carvediloL [Coreg] 3.125 mg PO BID PRN 03/10/23 03/10/23 History Allergies Allergy/AdvReac Type Severity Reaction Status Date / Time Penicillins Allergy Anaphylaxis Verified 03/10/23 15:28 Sulfa (Sulfonamide Allergy Rash/Hives Verified 03/10/23 15:28 Antibiotics) clindamycin AdvReac c diff Verified 03/10/23 15:28 morphine AdvReac Nausea & Verified 03/10/23 15:28 Vomiting Surgical - Exam Vital Signs Temp Pulse Resp BP Pulse Ox 98.2 F 91 18 82/46 96 03/10/23 09:47 03/10/23 09:47 03/10/23 09:47 03/10/23 09:47 03/10/23 09:47 General appearance: The patient is alert, oriented, appears in no acute distress. HET: Head is normocephalic and atraumatic. Pupils are equal and reactive. Neck: Supple. Chest: Right IJ tunnel catheter in place with dressing clean dry and intact. No surrounding erythema or drainage. Heart: Regular. Lungs: Equal expansion, normal respiratory effort. Abdomen: Soft, nontender, nondistended. Extremities: Normal skin color and turgor. Left upper extremity loop graft without palpable thrill, no audible bruit. Sutures intact, without any surrounding redness or drainage. Sutures removed. Neurological: No focal deficits. Strength and sensation are grossly intact. Results - Labs 03/11/23 08:51 03/11/23 08:51 Abnormal Lab Results - Last 24 Hours (Table) 03/10/23 03/10/23 03/10/23 Range/Units 09:56 09:56 09:56 WBC 21.2 H (3.8-10.6) k/uL RBC 3.29 L (3.80-5.40) m/uL Hgb 10.1 L (11.4-16.0) gm/dL Hct 31.5 L (34.0-46.0) % RDW 18.2 H (11.5-15.5) % Neutrophils # 19.0 H (1.3-7.7) k/uL Sodium 134 L (137-145) mmol/L Chloride 94 L (98-107) mmol/L BUN 40 H (7-17) mg/dL Creatinine 3.31 H (0.52-1.04) mg/dL Glucose 180 H (74-99) mg/dL POC Glucose (mg/dL) (70-110) mg/dL Plasma Lactic Acid Rolly (0.7-2.0) mmol/L Urine Appearance Turbid H (Clear) Urine Protein 2+ H (Negative) Urine Blood Moderate H (Negative) Ur Leukocyte Esterase Large H (Negative) Urine RBC 30 H (0-5) /hpf Urine WBC >182 H (0-5) /hpf Urine WBC Clumps Many H (None) /hpf Ur Squamous Epith Cells 66 H (0-4) /hpf Urine Bacteria Moderate H (None) /hpf Urine Yeast (Budding) Many H (None) /hpf 03/10/23 03/10/23 03/11/23 Range/Units 09:56 21:00 06:12 WBC (3.8-10.6) k/uL RBC (3.80-5.40) m/uL Hgb (11.4-16.0) gm/dL Hct (34.0-46.0) % RDW (11.5-15.5) % Neutrophils # (1.3-7.7) k/uL Sodium (137-145) mmol/L Chloride (98-107) mmol/L BUN (7-17) mg/dL Creatinine (0.52-1.04) mg/dL Glucose (74-99) mg/dL POC Glucose (mg/dL) 124 H 112 H (70-110) mg/dL Plasma Lactic Acid Rolly 2.8 H* (0.7-2.0) mmol/L Urine Appearance (Clear) Urine Protein (Negative) Urine Blood (Negative) Ur Leukocyte Esterase (Negative) Urine RBC (0-5) /hpf Urine WBC (0-5) /hpf Urine WBC Clumps (None) /hpf Ur Squamous Epith Cells (0-4) /hpf Urine Bacteria (None) /hpf Urine Yeast (Budding) (None) /hpf Diabetes panel 03/10/23 Range/Units 09:56 Sodium 134 L (137-145) mmol/L Potassium 4.0 (3.5-5.1) mmol/L Chloride 94 L (98-107) mmol/L Carbon Dioxide 25 (22-30) mmol/L BUN 40 H (7-17) mg/dL Creatinine 3.31 H (0.52-1.04) mg/dL Glucose 180 H (74-99) mg/dL Calcium 8.9 (8.4-10.2) mg/dL AST 28 (14-36) U/L ALT 20 (4-34) U/L Alkaline Phosphatase 125 (38-126) U/L Total Protein 7.6 (6.3-8.2) g/dL Albumin 3.8 (3.5-5.0) g/dL Calcium panel 03/10/23 Range/Units 09:56 Calcium 8.9 (8.4-10.2) mg/dL Albumin 3.8 (3.5-5.0) g/dL Pituitary panel 03/10/23 Range/Units 09:56 Sodium 134 L (137-145) mmol/L Potassium 4.0 (3.5-5.1) mmol/L Chloride 94 L (98-107) mmol/L Carbon Dioxide 25 (22-30) mmol/L BUN 40 H (7-17) mg/dL Creatinine 3.31 H (0.52-1.04) mg/dL Glucose 180 H (74-99) mg/dL Calcium 8.9 (8.4-10.2) mg/dL Adrenal panel 03/10/23 Range/Units 09:56 Sodium 134 L (137-145) mmol/L Potassium 4.0 (3.5-5.1) mmol/L Chloride 94 L (98-107) mmol/L Carbon Dioxide 25 (22-30) mmol/L BUN 40 H (7-17) mg/dL Creatinine 3.31 H (0.52-1.04) mg/dL Glucose 180 H (74-99) mg/dL Calcium 8.9 (8.4-10.2) mg/dL Total Bilirubin 1.1 (0.2-1.3) mg/dL AST 28 (14-36) U/L ALT 20 (4-34) U/L Alkaline Phosphatase 125 (38-126) U/L Total Protein 7.6 (6.3-8.2) g/dL Albumin 3.8 (3.5-5.0) g/dL Assessment and Plan Assessment: 1. Fever 2. Thrombosed left upper extremity loop graft without any signs of infection 3. Recent left upper extremity loop graft fistulogram with thrombectomy, thrombolysis and angioplasty 4. Recent UTI and exchange of right ureteral stent 5. End-stage renal disease requiring hemodialysis. Patient has right IJ tunneled catheter in place without any redness or signs of infection. Plan: Continue with recommendations from infectious disease and primary medical team. Continue with recommendations from urology. Left upper extremity loop graft thrombosed however has access through right IJ tunneled catheter for hemo dialysis. Patient to follow-up with Dr. Griggs in 1-2 weeks for left loop graft. Thank you for this consultation, we'll be on standby if further needed please do not hesitate to return to us. The impression and plan of care has been dictated as directed. I performed a history and examination of this patient, discussed the same with the dictator. I agree with the dictator's note ,documented as a scribe. Any additional findings or plans will be noted.
[2023-03-11 16:37] LABS: Glucose,Whole Blood 119 mg/dL (70-110)
[2023-03-11] MEDS: SEVELAMER 800 MG TAB PO SCH (16:50)
[2023-03-11] MEDS ORDERED: ZINC OXIDE PASTE (Z-GUARD) 1 APPLIC APPLIC TOPICAL PRN (18:08)
[2023-03-11] MEDS: IPRATROPIUM-ALBUTEROL 3 ML NEB INHALATION PRN (18:16)
--- NOTE | 2023-03-11 19:23 | P.GSCN ---
History of Present Illness Consult date: 03/11/23 Reason for Consult: hydronephrosis, UTI History of present illness: this is a 83-year-old female with history of right-sided hydronephrosis sec ondary to a benign ureteral stricture currently being managed with chronic ureteral stent. She's also history of end-stage renal disease on hemodialysis. history of significant interstitial cystitis its associated with gross hematuria. She underwent a cystoscopy with right stent exchange by Dr. Peterson on March 04. Her stent was changed uneventfully. She presented back to the hospital yesterday with fevers and chills. Denies any flank pain, gross hematuria or dysuria. Underwent a CT abdomen and pelvis that showed evidence of persistent [place] but the stent is in adequate location. On presentation patient was febrile in the 102. Review of Systems - Constitutional Reports chills, Reports fever, Reports malaise, Reports weakness - EENT Ears, nose, mouth and throat: Denies dysphagia - Cardiovascular Denies chest pain, Denies shortness of breath - Respiratory Denies cough, Denies 7 - Genitourinary Genitourinary: Denies dysuria, Denies hematuria - Integumentary Denies rash, Denies unusual bruising - Neurological Denies headaches, Denies syncope Past Medical History Past Medical History: COPD, Diabetes Mellitus, Fibromyalgia, GERD/Reflux, Hyperlipidemia, Hypertension, Osteoarthritis (OA), Renal Disease, Thyroid Disorder Additional Past Medical History / Comment(s): hypothyroidism, chronic back/neck pain-pain rt leg and walks with walker, mitral valve murmur, hemodialysis MWF-av access rt chest, c diff yrs ago when took clindamycin for tooth extraction,UTI,has lung nodules. has bundle block on ekgs, cystitis. controls diabetes with diet. takes carvedilol if Systolic over 150.hasnt needed,. , small open area on coccyx that she normally wears a cushion pad. History of Any Multi-Drug Resistant Organisms: C-DIFF Year Discovered:: 2017 MDRO Source:: stool Past Surgical History: Hysterectomy, Joint Replacement Additional Past Surgical History / Comment(s): neck [id number] surgery, heart aortic valve replacement, rt ureter stent x 3, kristi knee replacements, left forearm graft for Hemodialysis, right subclavian HD cath 11/2022 Past Anesthesia/Blood Transfusion Reactions: No Reported Reaction Additional Past Anesthesia/Blood Transfusion Reaction / Comm: states "no problems with intubation but was told by Anesthesia vocal cords are anterior", no problems with prior blood transfusion. adopted Past Psychological History: No Psychological Hx Reported Smoking Status: Never smoker Past Alcohol Use History: None Reported Past Drug Use History: None Reported - Past Family History Family Family Medical History: No Reported History Additional Family Medical History / Comment(s): adopted Medications and Allergies Home Medications Medication Instructions Recorded Confirmed Type Albuterol Inhaler [Ventolin Hfa 2 puff INHALATION RT-Q4H PRN 06/19/21 03/10/23 History Inhaler] Levothyroxine Sodium [Synthroid] 88 mcg PO QAM 06/19/21 03/10/23 History Omeprazole 40 mg PO QAM 06/19/21 03/10/23 History Tamsulosin [Flomax] 0.4 mg PO HS 02/03/22 03/10/23 History Hyoscyamine Sulfate [Levsin] 0.125 mg PO TID 07/08/22 03/10/23 History Loratadine [Claritin] 10 mg PO DAILY PRN 07/28/22 03/10/23 History Atorvastatin [Lipitor] 40 mg PO HS 09/08/22 03/10/23 History Mirabegron [Myrbetriq] 50 mg PO HS 10/19/22 03/10/23 History Multivitamins, Thera [Multivitamin 1 tab PO HS 10/19/22 03/10/23 History (formulary)] Ferrous Sulfate [Iron (65 MG 325 mg PO BID 12/25/22 03/10/23 History Elemental)] Lactulose 20 gm PO TID PRN 12/25/22 03/10/23 History Sevelamer [Renvela] 800 mg PO W/SUPPER 12/25/22 03/10/23 History Acetaminophen Tab [Tylenol] 650 mg PO Q6HR PRN tab 01/03/23 03/10/23 Rx Pregabalin [Lyrica] 25 mg PO DAILY #3 cap 01/03/23 03/10/23 Rx Pregabalin [Lyrica] 50 mg PO HS #3 cap 01/03/23 03/10/23 Rx HYDROcodone/APAP 7.5-325MG [[place] 1 tab PO Q6HR 03/10/23 03/10/23 History 7.5-325] Vitamin B Complex 1 cap PO DAILY 03/10/23 03/10/23 History carvediloL [Coreg] 3.125 mg PO BID PRN 03/10/23 03/10/23 History Allergies Allergy/AdvReac Type Severity Reaction Status Date / Time Penicillins Allergy Anaphylaxis Verified 03/10/23 15:28 Sulfa (Sulfonamide Allergy Rash/Hives Verified 03/10/23 15:28 Antibiotics) clindamycin AdvReac c diff Verified 03/10/23 15:28 morphine AdvReac Nausea & Verified 03/10/23 15:28 Vomiting Surgical - Exam Vital Signs Temp Pulse Resp BP Pulse Ox 98.2 F 91 18 82/46 96 03/10/23 09:47 03/10/23 09:47 03/10/23 09:47 03/10/23 09:47 03/10/23 09:47 - General no distress, no pain - Eyes normal ocular movement, no pale - ENT normal nares, normal mucosa - Respiratory normal expansion, normal respiratory effort - Abdomen Abdomen: soft, non tender Results - Labs 03/11/23 08:51 03/11/23 08:51 Abnormal Lab Results - Last 24 Hours (Table) 03/10/23 03/10/23 03/11/23 Range/Units 09:56 21:00 06:12 WBC (3.8-10.6) k/uL RBC (3.80-5.40) m/uL Hgb (11.4-16.0) gm/dL Hct (34.0-46.0) % RDW (11.5-15.5) % Sodium (137-145) mmol/L Chloride (98-107) mmol/L Carbon Dioxide (22-30) mmol/L BUN (7-17) mg/dL Creatinine (0.52-1.04) mg/dL Glucose (74-99) mg/dL POC Glucose (mg/dL) 124 H 112 H (70-110) mg/dL Calcium (8.4-10.2) mg/dL Troponin I (0.000-0.034) ng/mL Urine Appearance Turbid H (Clear) Urine Protein 2+ H (Negative) Urine Blood Moderate H (Negative) Ur Leukocyte Esterase Large H (Negative) Urine RBC 30 H (0-5) /hpf Urine WBC >182 H (0-5) /hpf Urine WBC Clumps Many H (None) /hpf Ur Squamous Epith Cells 66 H (0-4) /hpf Urine Bacteria Moderate H (None) /hpf Urine Yeast (Budding) Many H (None) /hpf 03/11/23 03/11/23 03/11/23 Range/Units 08:51 08:51 08:51 WBC 17.8 H (3.8-10.6) k/uL RBC 2.83 L (3.80-5.40) m/uL Hgb 8.8 L (11.4-16.0) gm/dL Hct 27.3 L (34.0-46.0) % RDW 18.2 H (11.5-15.5) % Sodium 131 L (137-145) mmol/L Chloride 96 L (98-107) mmol/L Carbon Dioxide 21 L (22-30) mmol/L BUN 48 H (7-17) mg/dL Creatinine 3.85 H (0.52-1.04) mg/dL Glucose 158 H (74-99) mg/dL POC Glucose (mg/dL) (70-110) mg/dL Calcium 8.1 L (8.4-10.2) mg/dL Troponin I 0.103 H* (0.000-0.034) ng/mL Urine Appearance (Clear) Urine Protein (Negative) Urine Blood (Negative) Ur Leukocyte Esterase (Negative) Urine RBC (0-5) /hpf Urine WBC (0-5) /hpf Urine WBC Clumps (None) /hpf Ur Squamous Epith Cells (0-4) /hpf Urine Bacteria (None) /hpf Urine Yeast (Budding) (None) /hpf 03/11/23 Range/Units 11:27 WBC (3.8-10.6) k/uL RBC (3.80-5.40) m/uL Hgb (11.4-16.0) gm/dL Hct (34.0-46.0) % RDW (11.5-15.5) % Sodium (137-145) mmol/L Chloride (98-107) mmol/L Carbon Dioxide (22-30) mmol/L BUN (7-17) mg/dL Creatinine (0.52-1.04) mg/dL Glucose (74-99) mg/dL POC Glucose (mg/dL) 129 H (70-110) mg/dL Calcium (8.4-10.2) mg/dL Troponin I (0.000-0.034) ng/mL Urine Appearance (Clear) Urine Protein (Negative) Urine Blood (Negative) Ur Leukocyte Esterase (Negative) Urine RBC (0-5) /hpf Urine WBC (0-5) /hpf Urine WBC Clumps (None) /hpf Ur Squamous Epith Cells (0-4) /hpf Urine Bacteria (None) /hpf Urine Yeast (Budding) (None) /hpf Diabetes panel 03/11/23 Range/Units 08:51 Sodium 131 L (137-145) mmol/L Potassium 3.7 (3.5-5.1) mmol/L Chloride 96 L (98-107) mmol/L Carbon Dioxide 21 L (22-30) mmol/L BUN 48 H (7-17) mg/dL Creatinine 3.85 H (0.52-1.04) mg/dL Glucose 158 H (74-99) mg/dL Calcium 8.1 L (8.4-10.2) mg/dL Calcium panel 03/11/23 Range/Units 08:51 Calcium 8.1 L (8.4-10.2) mg/dL Pituitary panel 03/11/23 Range/Units 08:51 Sodium 131 L (137-145) mmol/L Potassium 3.7 (3.5-5.1) mmol/L Chloride 96 L (98-107) mmol/L Carbon Dioxide 21 L (22-30) mmol/L BUN 48 H (7-17) mg/dL Creatinine 3.85 H (0.52-1.04) mg/dL Glucose 158 H (74-99) mg/dL Calcium 8.1 L (8.4-10.2) mg/dL Adrenal panel 03/11/23 Range/Units 08:51 Sodium 131 L (137-145) mmol/L Potassium 3.7 (3.5-5.1) mmol/L Chloride 96 L (98-107) mmol/L Carbon Dioxide 21 L (22-30) mmol/L BUN 48 H (7-17) mg/dL Creatinine 3.85 H (0.52-1.04) mg/dL Glucose 158 H (74-99) mg/dL Calcium 8.1 L (8.4-10.2) mg/dL Assessment and Plan Assessment: 83-year-old female status post right stent exchange by Dr. Alexander on March 04. Patient presented back to the hospital with sepsis. On review of CT the stent is in adequate location, from urology standpoint no further surgical intervention, infectious disease is on board for her sepsis. -Follow-up as an outpatient with Dr. Peterson for continued care for her right stent. Discussed she will need a stent exchange in 3-6 months.
[2023-03-11] MEDS: PREGABALIN 50 MG CAP PO SCH (20:06)
[2023-03-11 20:28] LABS: Glucose,Whole Blood 185 mg/dL (70-110)
[2023-03-12] MEDS: HYDROcodone/APAP 7.5-325MG 1 EACH TAB PO SCH ×4 (05:45→23:41)
[2023-03-12] MEDS: LEVOTHYROXINE 88 MCG TAB PO SCH (05:46)
[2023-03-12 06:07] LABS: Glucose,Whole Blood 115 mg/dL (70-110)
[2023-03-12] MEDS ORDERED: FUROSEMIDE 10 MG/ML 4 ML VIAL IV STA (08:24)
[2023-03-12 08:39] LABS: Anisocytosis Slight; HCT 26.3 % (34.0-46.0); HGB 8.6 gm/dL (11.4-16.0); Hypochromasia Moderate; MCH 31.3 pg (25.0-35.0); MCHC 32.8 g/dL (31.0-37.0); MCV 95.4 fL (80.0-100.0); Macrocytosis Slight; Mean Platelet Volume 10.2; Platelet Count 183 k/uL (150-450); RBC 2.76 m/uL (3.80-5.40); WBC 10.1 k/uL (3.8-10.6)
[2023-03-12] MEDS: IPRATROPIUM-ALBUTEROL 3 ML NEB INHALATION PRN (08:39)
[2023-03-12] MEDS: PREGABALIN 25 MG CAP PO SCH (09:05)
[2023-03-12] MEDS: HEPARIN SODIUM,PORCINE 5,000 UNIT/ML 1 ML VIAL SQ SCH ×3 (09:05→23:41)
[2023-03-12] MEDS: PANTOPRAZOLE 40 MG TABLET PO SCH (09:05)
[2023-03-12 09:26] LABS: African American GFR (CKD) 19 (>60 ml/min/1.73 sqM); Anion Gap 11 mmol/L; Blood Urea Nitrogen 27 mg/dL (7-17); Calcium 7.9 mg/dL (8.4-10.2); Carbon Dioxide 24 mmol/L (22-30); Chloride 94 mmol/L (98-107); Glucose 103 mg/dL (74-99); Non-African American GFR(CKD) 16 (>60 ml/min/1.73 sqM); Potassium 3.5 mmol/L (3.5-5.1); Sodium 129 mmol/L (137-145)
--- NOTE | 2023-03-12 10:54 | P.PN ---
Subjective Patient is seen in follow-up for end-stage renal disease. She is maintained on hemodialysis on Thursday schedule. No problems with dialysis yesterday. On IV antibiotics per ID. No vomiting or diarrhea. Vital signs are stable. General: No acute distress. HEENT: Head exam is unremarkable. LUNGS: No audible rhonchi or wheezes. HEART: Rate and Rhythm are regular. ABDOMEN: Nontender, obese. EXTREMITITES: No edema. Objective - Vital Signs Vital signs: Vital Signs Temp 98.0 F 03/12/23 09:02 Pulse 88 03/12/23 09:02 Resp 18 03/12/23 09:02 BP 128/61 03/12/23 09:02 Pulse Ox 97 03/12/23 09:02 FiO2 Intake & Output 03/11/23 03/12/23 03/12/23 18:59 06:59 18:59 Intake Total 880 Output Total 2200 250 Balance -1320 -250 Weight 75.5 kg Intake: Oral 480 Hemodialysis 400 Output: Urine 250 Hemodialysis 2200 Other: Voiding Method External Catheter External Catheter External Catheter # Voids 1 1 1 # Bowel Movements 1 1 1 - Labs CBC & Chem 7: 03/12/23 07:37 03/12/23 07:37 Labs: Abnormal Lab Results - Last 24 Hours (Table) 03/11/23 03/11/23 03/11/23 Range/Units 11:27 12:04 12:04 RBC (3.80-5.40) m/uL Hgb (11.4-16.0) gm/dL Hct (34.0-46.0) % RDW (11.5-15.5) % Sodium (137-145) mmol/L Chloride (98-107) mmol/L BUN (7-17) mg/dL Creatinine (0.52-1.04) mg/dL Glucose (74-99) mg/dL POC Glucose (mg/dL) 129 H (70-110) mg/dL Calcium (8.4-10.2) mg/dL Phosphorus 5.0 H (2.5-4.5) mg/dL Troponin I 0.105 H* (0.000-0.034) ng/mL 03/11/23 03/11/23 03/12/23 Range/Units 16:35 20:27 06:06 RBC (3.80-5.40) m/uL Hgb (11.4-16.0) gm/dL Hct (34.0-46.0) % RDW (11.5-15.5) % Sodium (137-145) mmol/L Chloride (98-107) mmol/L BUN (7-17) mg/dL Creatinine (0.52-1.04) mg/dL Glucose (74-99) mg/dL POC Glucose (mg/dL) 119 H 185 H 115 H (70-110) mg/dL Calcium (8.4-10.2) mg/dL Phosphorus (2.5-4.5) mg/dL Troponin I (0.000-0.034) ng/mL 03/12/23 03/12/23 Range/Units 07:37 07:37 RBC 2.76 L (3.80-5.40) m/uL Hgb 8.6 L (11.4-16.0) gm/dL Hct 26.3 L (34.0-46.0) % RDW 18.0 H (11.5-15.5) % Sodium 129 L (137-145) mmol/L Chloride 94 L (98-107) mmol/L BUN 27 H (7-17) mg/dL Creatinine 2.65 H (0.52-1.04) mg/dL Glucose 103 H (74-99) mg/dL POC Glucose (mg/dL) (70-110) mg/dL Calcium 7.9 L (8.4-10.2) mg/dL Phosphorus (2.5-4.5) mg/dL Troponin I (0.000-0.034) ng/mL Microbiology - Last 24 Hours (Table) 03/10/23 10:15 Blood Culture - Preliminary Blood 03/10/23 10:30 Blood Culture - Preliminary Blood Assessment and Plan Plan: Assessment: 1. End-stage renal disease maintained on hemodialysis on Thursday schedule. 2. Clotted AV graft. Currently using right chest permacath. Patient did undergo fistulogram with balloon angioplasty earlier this month. 3. Right-sided hydronephrosis with exchange of the right ureteral stent on 03/04/2023. Seen by urology. No interventions planned at this time. 4. Sepsis. Possibly urinary source. ID following. 5. Chronic kidney disease mineral bone disease maintained on Renvela. Phosphorus level V.0 dated 03/11/2023. 6. Anemia of chronic kidney disease. On Aranesp. 7. Hyponatremia secondary to chronic kidney disease. 8. Chronic systolic CHF with ejection fraction of 40-45% with moderate aortic stenosis. Plan: Hemodialysis tomorrow. Follow-up cultures. Add 1500 mL fluid restriction. Add lasix.
[2023-03-12 11:40] LABS: Glucose,Whole Blood 134 mg/dL (70-110)
--- NOTE | 2023-03-12 11:50 | P.PN ---
Subjective Progress Note Date: 03/12/23 Patient is seen and examined today as a follow-up. Yesterday she underwent dialysis through her right IJ tunnel catheter without any complications. Patient has been afebrile. Preliminary blood cultures are negative to date. She still continues to say that she has lower abdominal discomfort. No redness, drainage or tenderness to have left upper extremity loop graft. Objective - Vital Signs Vital signs: Vital Signs Temp 98.0 F 03/12/23 09:02 Pulse 88 03/12/23 09:02 Resp 18 03/12/23 09:02 BP 128/61 03/12/23 09:02 Pulse Ox 97 03/12/23 09:02 FiO2 Intake & Output 03/11/23 03/12/23 03/12/23 18:59 06:59 18:59 Intake Total 880 Output Total 2200 250 Balance -1320 -250 Weight 75.5 kg Intake: Oral 480 Hemodialysis 400 Output: Urine 250 Hemodialysis 2200 Other: Voiding Method External Catheter External Catheter External Catheter # Voids 1 1 1 # Bowel Movements 1 1 1 - Exam General appearance: The patient is alert, oriented, appears in no acute distress. HET: Head is normocephalic and atraumatic. Pupils are equal and reactive. Neck: Supple. Chest: Right IJ tunneled catheter with dressing clean dry and intact without any surrounding redness or drainage. Nontender. Abdomen: Soft, lower abdominal tenderness, nondistended. Extremities: Normal skin color and turgor. Left upper extremity loop graft with nonpalpable thrill, no audible bruit. No redness or drainage noticed. Nontender to palpation. Neurological: No focal deficits. Strength and sensation are grossly intact. - Labs CBC & Chem 7: 03/12/23 07:37 03/12/23 07:37 Labs: Abnormal Lab Results - Last 24 Hours (Table) 03/11/23 03/11/23 03/11/23 Range/Units 08:51 08:51 11:27 RBC (3.80-5.40) m/uL Hgb (11.4-16.0) gm/dL Hct (34.0-46.0) % RDW (11.5-15.5) % Sodium 131 L (137-145) mmol/L Chloride 96 L (98-107) mmol/L Carbon Dioxide 21 L (22-30) mmol/L BUN 48 H (7-17) mg/dL Creatinine 3.85 H (0.52-1.04) mg/dL Glucose 158 H (74-99) mg/dL POC Glucose (mg/dL) 129 H (70-110) mg/dL Calcium 8.1 L (8.4-10.2) mg/dL Phosphorus (2.5-4.5) mg/dL Troponin I 0.103 H* (0.000-0.034) ng/mL 03/11/23 03/11/23 03/11/23 Range/Units 12:04 12:04 16:35 RBC (3.80-5.40) m/uL Hgb (11.4-16.0) gm/dL Hct (34.0-46.0) % RDW (11.5-15.5) % Sodium (137-145) mmol/L Chloride (98-107) mmol/L Carbon Dioxide (22-30) mmol/L BUN (7-17) mg/dL Creatinine (0.52-1.04) mg/dL Glucose (74-99) mg/dL POC Glucose (mg/dL) 119 H (70-110) mg/dL Calcium (8.4-10.2) mg/dL Phosphorus 5.0 H (2.5-4.5) mg/dL Troponin I 0.105 H* (0.000-0.034) ng/mL 03/11/23 03/12/23 03/12/23 Range/Units 20:27 06:06 07:37 RBC 2.76 L (3.80-5.40) m/uL Hgb 8.6 L (11.4-16.0) gm/dL Hct 26.3 L (34.0-46.0) % RDW 18.0 H (11.5-15.5) % Sodium (137-145) mmol/L Chloride (98-107) mmol/L Carbon Dioxide (22-30) mmol/L BUN (7-17) mg/dL Creatinine (0.52-1.04) mg/dL Glucose (74-99) mg/dL POC Glucose (mg/dL) 185 H 115 H (70-110) mg/dL Calcium (8.4-10.2) mg/dL Phosphorus (2.5-4.5) mg/dL Troponin I (0.000-0.034) ng/mL 03/12/23 Range/Units 07:37 RBC (3.80-5.40) m/uL Hgb (11.4-16.0) gm/dL Hct (34.0-46.0) % RDW (11.5-15.5) % Sodium 129 L (137-145) mmol/L Chloride 94 L (98-107) mmol/L Carbon Dioxide (22-30) mmol/L BUN 27 H (7-17) mg/dL Creatinine 2.65 H (0.52-1.04) mg/dL Glucose 103 H (74-99) mg/dL POC Glucose (mg/dL) (70-110) mg/dL Calcium 7.9 L (8.4-10.2) mg/dL Phosphorus (2.5-4.5) mg/dL Troponin I (0.000-0.034) ng/mL Microbiology - Last 24 Hours (Table) 03/10/23 10:15 Blood Culture - Preliminary Blood 03/10/23 10:30 Blood Culture - Preliminary Blood Assessment and Plan Assessment: 1. Fever 2. Thrombosed left upper extremity loop graft without any signs of infection 3. Recent left upper extremity loop graft fistulogram with thrombectomy, thrombolysis and angioplasty 4. Recent UTI and exchange of right ureteral stent 5. End-stage renal disease requiring hemodialysis. Patient has right IJ tunneled catheter in place without any redness or signs of infection. Plan: Continue with recommendations from infectious disease and primary medical team. Continue with recommendations from urology. Left upper extremity loop graft thrombosed however has access through right IJ tunneled catheter for hemodialysis. Patient to follow-up with Dr. Griggs in 1-2 weeks for left loop graft. Thank you for this consultation, we'll be on standby if further needed please do not hesitate to return to us. The impression and plan of care has been dictated as directed. I performed a history and examination of this patient, discussed the same with the dictator. I agree with the dictator's note ,documented as a scribe. Any additional findings or plans will be noted.
[2023-03-12] MEDS: CEFEPIME 1 GM in SODIUM CHLORIDE 0.9% 50 ML IVPB SCH (11:59)
--- NOTE | 2023-03-12 16:23 | P.PN ---
Subjective Progress Note Date: 03/12/23 83-year-old female with PMH of ESRD on hemodialysis MWF, COPD, diabetes mellitus, hypertension, dyslipidemia, hypothyroidism presents the ED for fever and chills ongoing for the past 2 days. Also reports dysuria, right flank pain, confusion and generalized weakness. Symptoms started after last hemodialysis session yesterday. 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 03/06 Underwent RUE fistulogram and thrombolysis with Dr. Griggs. 03/04 Underwent right ureteral stent replacement with Dr. Peterson. Has hemodialysis catheter that was placed in the LUE a couple months ago by Dr. Khan at [facility]. In the ED she underwent extensive evaluation. Hypotensive BP as low as 82/46. HR 90s. CBC WBC count 21.2, Hg 10.1. CMP Na 134, Cl 94, BUN 40, Cr 3.31, glu 180. Lactic acid 2.8. UA large LE with > 182 WBCs. Flu, RSV, COVID negative. CXR increased density RUL. CT AP moderate right hydronephrosis, urothelial enhancement and thickening, cystitis, right renal edema and perinephric stranding, cirrhotic liver disease. 03/11 Patient was seen and examined. She reports some SOB and wheezing requesting breathing treatments. Improved fatigue. Mentation improving. CBC WBC 17.8, Hg 8.8. BMP Na 131, Cl 96, bicarb 21, BUN 48, Cr 3.85, glu 158. Repeat lactic acid 1.3. EKG done yesterday shows sinus tachycardia with LBBB, appears similar to previous admissions. Troponin checked elevated at 0.103. Discussed with Dr. García, antibiotics include Daptomycin and Cefepime. Plans for HD today. CBC shows WBC 17.8, Hg 8.8. BMP Na 131, Cl 96, bicarb 21, BUN 48, Cr 3.85, glu 158, Ca 8.1. Phos 5. 03/12 Patient was seen and examined. Feeling well in general. Troponins 0.103 and 0.105. Echo shows EF 40-45% with apical septum hypokinesis, moderate with normally functioning bioprosthetic valve. Urology recommends outpatient follow up. Continued on Daptomycin and Cefepime awaiting blood and urine cultures. HD blood culture also ordered. CXR shows some mild pulmonary vascular congestion, one dose of Lasix 40 mg IV ordered today. CBC shows Hg 8.6. BMP Na 129, Cl 94, BUN 27, Cr 2.65, glu 103, Ca 7.9. General: non toxic, no distress, appears at stated age Derm: warm, dry Head: atraumatic, normocephalic, symmetric Eyes: EOMI, no lid lag, anicteric sclera Cardiovascular: S1S2 tachy, no murmur Lungs: Decreased BS bilateral, no rhonchi, no rales , no accessory muscle use Abd: RLQ TTP without rebound. Slightly distended. Soft. R CVA tenderness Ext: no gross muscle atrophy, no edema, no contractures, R chest permacath, LUE fistula with stitches Neuro: no focal neuro deficits Psych: Alert, oriented, appropriate affect Based on my assessment of this patient, this patient meets a high complexity level of care. Patient has an acute diagnosis of sepsis related to pyelonephritis in the setting of recent uretral stent placement that poses a threat to life or bodily function. Severe sepsis due to pyelonephritis with recent uretral stent placement: IVF discontinued. Daptomycin 500 mg IV Q48H and Cefepime 2g IV Q8H. History of VRE. BCx (prelim negative) and UCx. Telemetry monitoring. Infectious disease and Urology on board. Troponin elevation: No chest pain. Possible demand ischemia. Poor renal clearanc e. Troponin flat, ACS ruled out. Echo as above similar to previous Echo. Mild systolic CHF exacerbation: Lasix 40 mg IV x 1. Restart Coreg when BP improved. Acute metabolic encephalopathy related to above: Improved. Normocytic anemia: Transfuse if Hg < 7. Dilutional. No signs of active bleeding. ESRD on HD MWF: Nephrology on board. Resolved: Lactic acidosis. Chronic conditions: COPD, diabetes mellitus, hypertension, dyslipidemia, hypothyroidism CODE STATUS: NO CODE DVT Prophylaxis: Heparin SQ GI Prophylaxis: Protonix IV Designated medical POA if patient is not able to make medical decisions for themselves: Son I have reviewed the following network consultant notes: ID, Nephro, Urology note. I have reviewed the results of the following tests: Troponin, Echo, BCx. I have ordered the following tests: Pending: BCx. UCx. CBC. BMP. I have discussed the care of this patient with the following independent historian: I have independently interpreted the following test below: CXR I have discussed the management of this patient with the following physician: Discussed with Dr. García. This patient meets a high level of care for the following reasons: Patient requires IV lasix which requires intensive monitoring for renal toxicitiy. Objective - Vital Signs Vital signs: Vital Signs Temp 98 F 03/12/23 04:00 Pulse 93 03/12/23 04:00 Resp 18 03/12/23 04:00 BP 118/56 03/12/23 04:00 Pulse Ox 92 L 03/12/23 04:00 FiO2 Intake & Output 03/11/23 03/12/23 03/12/23 18:59 06:59 18:59 Intake Total 880 Output Total 2200 250 Balance -1320 -250 Weight 75.5 kg Intake: Oral 480 Hemodialysis 400 Output: Urine 250 Hemodialysis 2200 Other: Voiding Method External Catheter External Catheter # Voids 1 1 # Bowel Movements 1 1 - Labs CBC & Chem 7: 03/12/23 07:37 03/12/23 07:37 Labs: Abnormal Lab Results - Last 24 Hours (Table) 03/11/23 03/11/23 03/11/23 Range/Units 08:51 08:51 08:51 WBC 17.8 H (3.8-10.6) k/uL RBC 2.83 L (3.80-5.40) m/uL Hgb 8.8 L (11.4-16.0) gm/dL Hct 27.3 L (34.0-46.0) % RDW 18.2 H (11.5-15.5) % Sodium 131 L (137-145) mmol/L Chloride 96 L (98-107) mmol/L Carbon Dioxide 21 L (22-30) mmol/L BUN 48 H (7-17) mg/dL Creatinine 3.85 H (0.52-1.04) mg/dL Glucose 158 H (74-99) mg/dL POC Glucose (mg/dL) (70-110) mg/dL Calcium 8.1 L (8.4-10.2) mg/dL Phosphorus (2.5-4.5) mg/dL Troponin I 0.103 H* (0.000-0.034) ng/mL 03/11/23 03/11/23 03/11/23 Range/Units 11:27 12:04 12:04 WBC (3.8-10.6) k/uL RBC (3.80-5.40) m/uL Hgb (11.4-16.0) gm/dL Hct (34.0-46.0) % RDW (11.5-15.5) % Sodium (137-145) mmol/L Chloride (98-107) mmol/L Carbon Dioxide (22-30) mmol/L BUN (7-17) mg/dL Creatinine (0.52-1.04) mg/dL Glucose (74-99) mg/dL POC Glucose (mg/dL) 129 H (70-110) mg/dL Calcium (8.4-10.2) mg/dL Phosphorus 5.0 H (2.5-4.5) mg/dL Troponin I 0.105 H* (0.000-0.034) ng/mL 03/11/23 03/11/23 03/12/23 Range/Units 16:35 20:27 06:06 WBC (3.8-10.6) k/uL RBC (3.80-5.40) m/uL Hgb (11.4-16.0) gm/dL Hct (34.0-46.0) % RDW (11.5-15.5) % Sodium (137-145) mmol/L Chloride (98-107) mmol/L Carbon Dioxide (22-30) mmol/L BUN (7-17) mg/dL Creatinine (0.52-1.04) mg/dL Glucose (74-99) mg/dL POC Glucose (mg/dL) 119 H 185 H 115 H (70-110) mg/dL Calcium (8.4-10.2) mg/dL Phosphorus (2.5-4.5) mg/dL Troponin I (0.000-0.034) ng/mL Microbiology - Last 24 Hours (Table) 03/10/23 10:15 Blood Culture - Preliminary Blood 03/10/23 10:30 Blood Culture - Preliminary Blood
[2023-03-12] MEDS ORDERED: polyethylene glycoL 3350 17 GM POWD.PACK PO STA (16:24)
--- NOTE | 2023-03-12 16:27 | P.PN ---
Subjective Progress Note Date: 03/11/23 Principal diagnosis: Reason for follow-up is fever possible urinary source Patient is a 83 year female with multiple comorbidity including end- stage renal disease on dialysis patient did have a left arm AV fistula with recent intervention by her vascular surgeon and also have removal of the ureteral stent by urology presented to hospital with fever On today's evaluation that is 03/11/2023, the patient is afebrile today, the patient is breathing comfortably on room air. The patient denies having any shortness of breath no chest pain or cough, patient denies Abdominal pain, no nausea/vomiting or diarrhea. Patient white count is down to 17.8, creatinine 3.85, cultures currently pending Objective - Vital Signs Vital signs: Vital Signs Temp 98.4 F 03/11/23 09:00 Pulse 89 03/11/23 09:00 Resp 18 03/11/23 09:00 BP 111/53 03/11/23 09:00 Pulse Ox 95 03/11/23 09:00 FiO2 Intake & Output 03/10/23 03/11/23 03/11/23 18:59 06:59 18:59 Output Total 500 Balance -500 Weight 72.575 kg 72.575 kg Output: Urine 500 Other: Voiding Method External Catheter External Catheter # Voids 1 1 - Exam GENERAL DESCRIPTION: An elderly female lying in bed in no distress RESPIRATORY SYSTEM: Unlabored breathing , clear to auscultation anteriorly HEART: S1 S2 regular rate and rhythm , ABDOMEN: Soft , no tenderness EXTREMITIES: No edema feet - Labs CBC & Chem 7: 03/12/23 07:37 03/12/23 07:37 Labs: Abnormal Lab Results - Last 24 Hours (Table) 03/10/23 03/10/23 03/11/23 Range/Units 09:56 21:00 06:12 WBC (3.8-10.6) k/uL RBC (3.80-5.40) m/uL Hgb (11.4-16.0) gm/dL Hct (34.0-46.0) % RDW (11.5-15.5) % Sodium (137-145) mmol/L Chloride (98-107) mmol/L Carbon Dioxide (22-30) mmol/L BUN (7-17) mg/dL Creatinine (0.52-1.04) mg/dL Glucose (74-99) mg/dL POC Glucose (mg/dL) 124 H 112 H (70-110) mg/dL Calcium (8.4-10.2) mg/dL Troponin I (0.000-0.034) ng/mL Urine Appearance Turbid H (Clear) Urine Protein 2+ H (Negative) Urine Blood Moderate H (Negative) Ur Leukocyte Esterase Large H (Negative) Urine RBC 30 H (0-5) /hpf Urine WBC >182 H (0-5) /hpf Urine WBC Clumps Many H (None) /hpf Ur Squamous Epith Cells 66 H (0-4) /hpf Urine Bacteria Moderate H (None) /hpf Urine Yeast (Budding) Many H (None) /hpf 03/11/23 03/11/23 03/11/23 Range/Units 08:51 08:51 08:51 WBC 17.8 H (3.8-10.6) k/uL RBC 2.83 L (3.80-5.40) m/uL Hgb 8.8 L (11.4-16.0) gm/dL Hct 27.3 L (34.0-46.0) % RDW 18.2 H (11.5-15.5) % Sodium 131 L (137-145) mmol/L Chloride 96 L (98-107) mmol/L Carbon Dioxide 21 L (22-30) mmol/L BUN 48 H (7-17) mg/dL Creatinine 3.85 H (0.52-1.04) mg/dL Glucose 158 H (74-99) mg/dL POC Glucose (mg/dL) (70-110) mg/dL Calcium 8.1 L (8.4-10.2) mg/dL Troponin I 0.103 H* (0.000-0.034) ng/mL Urine Appearance (Clear) Urine Protein (Negative) Urine Blood (Negative) Ur Leukocyte Esterase (Negative) Urine RBC (0-5) /hpf Urine WBC (0-5) /hpf Urine WBC Clumps (None) /hpf Ur Squamous Epith Cells (0-4) /hpf Urine Bacteria (None) /hpf Urine Yeast (Budding) (None) /hpf 03/11/23 Range/Units 11:27 WBC (3.8-10.6) k/uL RBC (3.80-5.40) m/uL Hgb (11.4-16.0) gm/dL Hct (34.0-46.0) % RDW (11.5-15.5) % Sodium (137-145) mmol/L Chloride (98-107) mmol/L Carbon Dioxide (22-30) mmol/L BUN (7-17) mg/dL Creatinine (0.52-1.04) mg/dL Glucose (74-99) mg/dL POC Glucose (mg/dL) 129 H (70-110) mg/dL Calcium (8.4-10.2) mg/dL Troponin I (0.000-0.034) ng/mL Urine Appearance (Clear) Urine Protein (Negative) Urine Blood (Negative) Ur Leukocyte Esterase (Negative) Urine RBC (0-5) /hpf Urine WBC (0-5) /hpf Urine WBC Clumps (None) /hpf Ur Squamous Epith Cells (0-4) /hpf Urine Bacteria (None) /hpf Urine Yeast (Budding) (None) /hpf Assessment and Plan (1) Fever Current Visit: Yes Status: Acute Code(s): R50.9 - FEVER, UNSPECIFIED SNOMED Code(s): 737168251 (2) Urinary tract infection Current Visit: No Status: Acute Code(s): N39.0 - URINARY TRACT INFECTION, SITE NOT SPECIFIED SNOMED Code(s): 55787010 Plan: 1patient is in the hospital with sepsis in this patient who did have a fever elevated white count elevated lactic acid source could be urinary as the patient recently did have a ureteral stent removed and recent urine culture positive for E. coli as well as VRE, patient did have a recent admission to the left forearm AV fistula however that site has some bruising but no significant cellulitis, and no inflammation of the right subclavian permacatheter 2blood and urine culture have been obtained and results are currently pending 3patient to continue with empiric daptomycin and cefepime while waiting for the cultures to be finalized Dictation was produced using [employer] software. please excuse any grammatical, word or spelling errors. Time with Patient: Less than 30
--- NOTE | 2023-03-12 16:28 | P.PN ---
Subjective Progress Note Date: 03/12/23 Principal diagnosis: Reason for follow-up is fever possible urinary source Patient is a 83 year female with multiple comorbidity including end- stage renal disease on dialysis patient did have a left arm AV fistula with recent intervention by her vascular surgeon and also have removal of the ureteral stent by urology presented to hospital with fever On today's evaluation that is 03/12/2023, the patient denies any fever or any chills, the patient is breathing comfortably on room air and denies any shortness of breath, the patient denies any chest pain, no cough or sputum production, patient denies nausea/vomiting /diarrhea and no abdominal pain Patient white count normalized to 10.1, creatinine is 2.65, blood culture negative urinary showing gram-negative and yeast Objective - Vital Signs Vital signs: Vital Signs Temp 98.0 F 03/12/23 09:02 Pulse 88 03/12/23 09:02 Resp 18 03/12/23 09:02 BP 128/61 03/12/23 09:02 Pulse Ox 97 03/12/23 09:02 FiO2 Intake & Output 03/11/23 03/12/23 03/12/23 18:59 06:59 18:59 Intake Total 880 Output Total 2200 250 Balance -1320 -250 Weight 75.5 kg Intake: Oral 480 Hemodialysis 400 Output: Urine 250 Hemodialysis 2200 Other: Voiding Method External Catheter External Catheter External Catheter # Voids 1 1 1 # Bowel Movements 1 1 1 - Exam GENERAL DESCRIPTION: An elderly female lying in bed in no distress RESPIRATORY SYSTEM: Unlabored breathing , clear to auscultation anteriorly HEART: S1 S2 regular rate and rhythm , ABDOMEN: Soft , no tenderness EXTREMITIES: No edema feet - Labs CBC & Chem 7: 03/12/23 07:37 03/12/23 07:37 Labs: Abnormal Lab Results - Last 24 Hours (Table) 03/11/23 03/11/23 03/11/23 Range/Units 11:27 12:04 12:04 RBC (3.80-5.40) m/uL Hgb (11.4-16.0) gm/dL Hct (34.0-46.0) % RDW (11.5-15.5) % Sodium (137-145) mmol/L Chloride (98-107) mmol/L BUN (7-17) mg/dL Creatinine (0.52-1.04) mg/dL Glucose (74-99) mg/dL POC Glucose (mg/dL) 129 H (70-110) mg/dL Calcium (8.4-10.2) mg/dL Phosphorus 5.0 H (2.5-4.5) mg/dL Troponin I 0.105 H* (0.000-0.034) ng/mL 03/11/23 03/11/23 03/12/23 Range/Units 16:35 20:27 06:06 RBC (3.80-5.40) m/uL Hgb (11.4-16.0) gm/dL Hct (34.0-46.0) % RDW (11.5-15.5) % Sodium (137-145) mmol/L Chloride (98-107) mmol/L BUN (7-17) mg/dL Creatinine (0.52-1.04) mg/dL Glucose (74-99) mg/dL POC Glucose (mg/dL) 119 H 185 H 115 H (70-110) mg/dL Calcium (8.4-10.2) mg/dL Phosphorus (2.5-4.5) mg/dL Troponin I (0.000-0.034) ng/mL 03/12/23 03/12/23 Range/Units 07:37 07:37 RBC 2.76 L (3.80-5.40) m/uL Hgb 8.6 L (11.4-16.0) gm/dL Hct 26.3 L (34.0-46.0) % RDW 18.0 H (11.5-15.5) % Sodium 129 L (137-145) mmol/L Chloride 94 L (98-107) mmol/L BUN 27 H (7-17) mg/dL Creatinine 2.65 H (0.52-1.04) mg/dL Glucose 103 H (74-99) mg/dL POC Glucose (mg/dL) (70-110) mg/dL Calcium 7.9 L (8.4-10.2) mg/dL Phosphorus (2.5-4.5) mg/dL Troponin I (0.000-0.034) ng/mL Microbiology - Last 24 Hours (Table) 03/10/23 10:15 Blood Culture - Preliminary Blood 03/10/23 10:30 Blood Culture - Preliminary Blood Assessment and Plan (1) Fever Current Visit: Yes Status: Acute Code(s): R50.9 - FEVER, UNSPECIFIED SNOMED Code(s): 221204810 (2) Urinary tract infection Current Visit: No Status: Acute Code(s): N39.0 - URINARY TRACT INFECTION, SITE NOT SPECIFIED SNOMED Code(s): 75098027 Plan: 1patient is in the hospital with sepsis in this patient who did have a fever elevated white count elevated lactic acid source could be urinary as the patient recently did have a ureteral stent removed and recent urine culture positive for E. coli as well as VRE, patient did have a recent admission to the left forearm AV fistula however that site has some bruising but no significant cellulitis, and no inflammation of the right subclavian permacatheter 2blood culture had been negative so far urinary showing gram-negative 3patient to continue with cefepime while waiting for the cultures however discontinue daptomycin as no evidence of gram-positive infection Dictation was produced using [email or web address] dictation software. please excuse any grammatical, word or spelling errors. Time with Patient: Less than 30
[2023-03-12 16:47] LABS: Glucose,Whole Blood 96 mg/dL (70-110)
[2023-03-12] MEDS: SEVELAMER 800 MG TAB PO SCH (17:53)
[2023-03-12] MEDS: PREGABALIN 50 MG CAP PO SCH (19:51)
[2023-03-12 21:04] LABS: Glucose,Whole Blood 139 mg/dL (70-110)
[2023-03-13 06:03] LABS: Glucose,Whole Blood 91 mg/dL (70-110)
[2023-03-13] MEDS: HYDROcodone/APAP 7.5-325MG 1 EACH TAB PO SCH ×4 (06:11→23:52)
[2023-03-13] MEDS: LEVOTHYROXINE 88 MCG TAB PO SCH (06:11)
[2023-03-13] MEDS: IPRATROPIUM-ALBUTEROL 3 ML NEB INHALATION PRN ×2 (07:48→15:34)
[2023-03-13] MEDS ORDERED: carvediloL 3.125 MG TAB PO PRN (09:17)
--- NOTE | 2023-03-13 11:58 | P.PN ---
Subjective Patient is seen in follow-up for end-stage renal disease. She is maintained on hemodialysis on Thursday schedule. Tolerating dialysis well. On IV antibiotics per ID. No vomiting or diarrhea. Vital signs are stable. General: No acute distress. HEENT: Head exam is unremarkable. LUNGS: No audible rhonchi or wheezes. HEART: Rate and Rhythm are regular. ABDOMEN: Nontender, obese. EXTREMITITES: No edema. Objective - Vital Signs Vital signs: Vital Signs Temp 98.1 F 03/13/23 11:15 Pulse 79 03/13/23 11:15 Resp 16 03/13/23 11:15 BP 127/58 03/13/23 11:15 Pulse Ox 99 03/13/23 11:15 FiO2 Intake & Output 03/12/23 03/13/23 03/13/23 18:59 06:59 18:59 Intake Total 0 118 Balance 0 118 Intake: Oral 0 118 Other: Voiding Method External Catheter Toilet Toilet # Voids 1 1 2 # Bowel Movements 1 - Labs CBC & Chem 7: 03/12/23 07:37 03/12/23 07:37 Labs: Abnormal Lab Results - Last 24 Hours (Table) 03/12/23 Range/Units 21:01 POC Glucose (mg/dL) 139 H (70-110) mg/dL Microbiology - Last 24 Hours (Table) 03/10/23 09:56 Urine Culture - Final Urine,Voided Escherichia coli Zuly albicans 03/11/23 12:04 Blood Culture - Preliminary Blood 03/10/23 10:15 Blood Culture - Preliminary Blood 03/10/23 10:30 Blood Culture - Preliminary Blood Assessment and Plan Plan: Assessment: 1. End-stage renal disease maintained on hemodialysis on Thursday schedule. 2. Clotted AV graft. Currently using right chest permacath. Patient did undergo fistulogram with balloon angioplasty earlier this month. 3. Right-sided hydronephrosis with exchange of the right ureteral stent on 03/04/2023. Seen by urology. No interventions planned at this time. 4. Sepsis. Possibly urinary source. Urine culture positive for Zuly and E. coli. Blood cultures negative so far. ID following. 5. Chronic kidney disease mineral bone disease maintained on Renvela. Phosphorus level V.0 dated 03/11/2023. 6. Anemia of chronic kidney disease. On Aranesp. 7. Hyponatremia secondary to chronic kidney disease. 8. Chronic systolic CHF with ejection fraction of 40-45% with moderate aortic stenosis. Plan: Currently seen while undergoing hemodialysis. Next treatment on Thursday. Follow-up cultures. Maintain fluid restriction. Maintain Lasix.
--- NOTE | 2023-03-13 12:54 | P.PN ---
Subjective Progress Note Date: 03/13/23 83-year-old female with PMH of ESRD on hemodialysis MWF, COPD, diabetes mellitus, hypertension, dyslipidemia, hypothyroidism presents the ED for fever and chills ongoing for the past 2 days. Also reports dysuria, right flank pain, confusion and generalized weakness. Symptoms started after last hemodialysis session yesterday. 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 03/06 Underwent RUE fistulogram and thrombolysis with Dr. Griggs. 03/04 Underwent right ureteral stent replacement with Dr. Peterson. Has hemodialysis catheter that was placed in the LUE a couple months ago by Dr. Khan at [facility]. In the ED she underwent extensive evaluation. Hypotensive BP as low as 82/46. HR 90s. CBC WBC count 21.2, Hg 10.1. CMP Na 134, Cl 94, BUN 40, Cr 3.31, glu 180. Lactic acid 2.8. UA large LE with > 182 WBCs. Flu, RSV, COVID negative. CXR increased density RUL. CT AP moderate right hydronephrosis, urothelial enhancement and thickening, cystitis, right renal edema and perinephric stranding, cirrhotic liver disease. 03/11 Patient was seen and examined. She reports some SOB and wheezing requesting breathing treatments. Improved fatigue. Mentation improving. CBC WBC 17.8, Hg 8.8. BMP Na 131, Cl 96, bicarb 21, BUN 48, Cr 3.85, glu 158. Repeat lactic acid 1.3. EKG done yesterday shows sinus tachycardia with LBBB, appears similar to previous admissions. Troponin checked elevated at 0.103. Discussed with Dr. García, antibiotics include Daptomycin and Cefepime. Plans for HD today. CBC shows WBC 17.8, Hg 8.8. BMP Na 131, Cl 96, bicarb 21, BUN 48, Cr 3.85, glu 158, Ca 8.1. Phos 5. 03/12 Patient was seen and examined. Feeling well in general. Troponins 0.103 and 0.105. Echo shows EF 40-45% with apical septum hypokinesis, moderate with normally functioning bioprosthetic valve. Urology recommends outpatient follow up. Continued on Daptomycin and Cefepime awaiting blood and urine cultures. HD blood culture also ordered. CXR shows some mild pulmonary vascular congestion, one dose of Lasix 40 mg IV ordered today. CBC shows Hg 8.6. BMP Na 129, Cl 94, BUN 27, Cr 2.65, glu 103, Ca 7.9. 03/13 Patient was seen and examined. BCx negative at 48H. HD catheter BCx negative at 24H. UCx E. coli and zuly. Nephrology started Lasix 80 mg PO QD. Daptomycin stopped and patient continued on Cefepime. General: non toxic, no distress, appears at stated age Derm: warm, dry Head: atraumatic, normocephalic, symmetric Eyes: EOMI, no lid lag, anicteric sclera Cardiovascular: S1S2 tachy, no murmur Lungs: Decreased BS bilateral, no rhonchi, no rales , no accessory muscle use Abd: RLQ TTP without rebound. Slightly distended. Soft. R CVA tenderness Ext: no gross muscle atrophy, no edema, no contractures, R chest permacath, LUE fistula with stitches Neuro: no focal neuro deficits Psych: Alert, oriented, appropriate affect Based on my assessment of this patient, this patient meets a moderate complexity level of care. Patient has an acute diagnosis of sepsis related to pyelonephritis in the setting of recent uretral stent placement that poses a threat to life or bodily function. Severe sepsis due to pyelonephritis with recent uretral stent placement: IVF discontinued. Cefepime 2g IV Q8H. History of VRE. BCx (prelim negative) and UCx (E. coli). Telemetry monitoring. Infectious disease and Urology on board. Troponin elevation: No chest pain. Possible demand ischemia. Poor renal clearance. Troponin flat, ACS ruled out. Echo as above similar to previous Echo. Mild systolic CHF exacerbation: Lasix 40 mg IV x 1. Lasix 80 mg PO QD. Restart Coreg 3.125 mg PO BID. Acute metabolic encephalopathy related to above: Improved. Normocytic anemia: Transfuse if Hg < 7. Dilutional. No signs of active bleeding. ESRD on HD MWF: Nephrology on board. Resolved: Lactic acidosis. Chronic conditions: COPD, diabetes mellitus, hypertension, dyslipidemia, hypothyroidism Discussed with Dr. García, patient can be discharged on oral ceftin on discharge. Her HD BCx is only 24H prelim negative. Anticipate discharge if BCx remains negative tomorrow on 2 weeks of renally dosed Ceftin. CODE STATUS: NO CODE DVT Prophylaxis: Heparin SQ GI Prophylaxis: Protonix IV Designated medical POA if patient is not able to make medical decisions for themselves: Son I have reviewed the following decorating consultant notes: ID, Nephro, Urology note. I have reviewed the results of the following tests: BCx, UCx. I have ordered the following tests: I have discussed the care of this patient with the following independent historian: I have independently interpreted the following test below: I have discussed the management of this patient with the following physician: Discussed with Dr. García. Objective - Vital Signs Vital signs: Vital Signs Temp 98.1 F 03/13/23 08:34 Pulse 94 03/13/23 08:34 Resp 16 03/13/23 08:34 BP 122/48 03/13/23 08:34 Pulse Ox 94 L 03/13/23 08:34 FiO2 Intake & Output 03/12/23 03/13/23 03/13/23 18:59 06:59 18:59 Intake Total 0 Balance 0 Intake: Oral 0 Other: Voiding Method External Catheter Toilet # Voids 1 1 # Bowel Movements 1 - Labs CBC & Chem 7: 03/12/23 07:37 03/12/23 07:37 Labs: Abnormal Lab Results - Last 24 Hours (Table) 03/12/23 03/12/23 03/12/23 Range/Units 07:37 11:38 21:01 Sodium 129 L (137-145) mmol/L Chloride 94 L (98-107) mmol/L BUN 27 H (7-17) mg/dL Creatinine 2.65 H (0.52-1.04) mg/dL Glucose 103 H (74-99) mg/dL POC Glucose (mg/dL) 134 H 139 H (70-110) mg/dL Calcium 7.9 L (8.4-10.2) mg/dL Microbiology - Last 24 Hours (Table) 03/11/23 12:04 Blood Culture - Preliminary Blood 03/10/23 10:15 Blood Culture - Preliminary Blood 03/10/23 10:30 Blood Culture - Preliminary Blood 03/10/23 09:56 Urine Culture - Preliminary Urine,Voided Gram Neg Bacilli Zuly albicans
[2023-03-13 13:02] LABS: Glucose,Whole Blood 93 mg/dL (70-110)
[2023-03-13] MEDS: FUROSEMIDE 80 MG TAB PO SCH (13:03)
[2023-03-13] MEDS: PANTOPRAZOLE 40 MG TABLET PO SCH (13:03)
[2023-03-13] MEDS: HEPARIN SODIUM,PORCINE 5,000 UNIT/ML 1 ML VIAL SQ SCH ×3 (13:04→23:52)
[2023-03-13] MEDS: polyethylene glycoL 3350 17 GM POWD.PACK PO SCH (13:04)
[2023-03-13] MEDS: PREGABALIN 25 MG CAP PO SCH (13:04)
[2023-03-13] MEDS: CEFEPIME 1 GM in SODIUM CHLORIDE 0.9% 50 ML IVPB SCH (13:04)
--- NOTE | 2023-03-13 16:39 | P.PN ---
Subjective Progress Note Date: 03/13/23 Principal diagnosis: Reason for follow-up is fever possible urinary source Patient is a 83 year female with multiple comorbidity including end- stage renal disease on dialysis patient did have a left arm AV fistula with recent intervention by her vascular surgeon and also have removal of the ureteral stent by urology presented to hospital with fever On today's evaluation that is 03/13/2023 the patient remains to be afebrile, the patient is breathing comfortably on room air and no need for oxygen. The patient denies shortness of breath denies any chest pain or cough, patient denies nausea/vomiting or diarrhea and no abdominal pain. Patient white count normalized to 10.1, creatinine is 2.65 as of 03/12/2023, blood culture negative urine cultures growing E. coli and yeast Objective - Vital Signs Vital signs: Vital Signs Temp 97.8 F 03/13/23 12:19 Pulse 76 03/13/23 12:19 Resp 16 03/13/23 12:19 BP 125/71 03/13/23 12:19 Pulse Ox 99 03/13/23 11:15 FiO2 Intake & Output 03/12/23 03/13/23 03/13/23 18:59 06:59 18:59 Intake Total 0 518 Output Total 1900 Balance 0 -1382 Intake: Oral 0 118 Hemodialysis 400 Output: Hemodialysis 1900 Other: Voiding Method External Catheter Toilet Toilet # Voids 1 1 2 # Bowel Movements 1 - Exam GENERAL DESCRIPTION: An elderly female lying in bed in no distress RESPIRATORY SYSTEM: Unlabored breathing , clear to auscultation anteriorly HEART: S1 S2 regular rate and rhythm , ABDOMEN: Soft , no tenderness EXTREMITIES: No edema feet - Labs CBC & Chem 7: 03/12/23 07:37 03/12/23 07:37 Labs: Abnormal Lab Results - Last 24 Hours (Table) 03/12/23 Range/Units 21:01 POC Glucose (mg/dL) 139 H (70-110) mg/dL Microbiology - Last 24 Hours (Table) 03/10/23 09:56 Urine Culture - Final Urine,Voided Escherichia coli Zuly albicans 03/11/23 12:04 Blood Culture - Preliminary Blood 03/10/23 10:15 Blood Culture - Preliminary Blood 03/10/23 10:30 Blood Culture - Preliminary Blood Assessment and Plan (1) Fever Current Visit: Yes Status: Acute Code(s): R50.9 - FEVER, UNSPECIFIED SNOMED Code(s): 528144710 (2) Urinary tract infection Current Visit: No Status: Acute Code(s): N39.0 - URINARY TRACT INFECTION, SITE NOT SPECIFIED SNOMED Code(s): 42755416 Plan: 1patient is in the hospital with sepsis in this patient who did have a fever elevated white count elevated lactic acid source could be urinary as the patient recently did have a ureteral stent removed and recent urine culture positive for E. coli as well as VRE, patient did have a recent admission to the left forearm AV fistula however that site has some bruising but no significant cellulitis, and no inflammation of the right subclavian permacatheter 2blood culture had been negative so far urinary growing E. coli that is sensitive to Rocephin 3patient to continue with cefepime however patient be able to finish therapy with oral Ceftin 10 days discussed with the admitting team working on discharge Dictation was produced using [employer] dictation software. please excuse any grammatical, word or spelling errors. Time with Patient: Less than 30
[2023-03-13 17:00] LABS: Glucose,Whole Blood 172 mg/dL (70-110)
[2023-03-13] MEDS: SEVELAMER 800 MG TAB PO SCH (17:29)
[2023-03-13 19:54] LABS: Glucose,Whole Blood 153 mg/dL (70-110)
[2023-03-13] MEDS: PREGABALIN 50 MG CAP PO SCH (20:14)
[2023-03-14] MEDS: LEVOTHYROXINE 88 MCG TAB PO SCH (06:12)
[2023-03-14] MEDS: HYDROcodone/APAP 7.5-325MG 1 EACH TAB PO SCH ×2 (06:12→11:42)
[2023-03-14 06:17] LABS: Glucose,Whole Blood 95 mg/dL (70-110)
[2023-03-14 09:00] VITALS: TEMP 98.1
[2023-03-14] MEDS: PANTOPRAZOLE 40 MG TABLET PO SCH (09:00)
[2023-03-14] MEDS: HEPARIN SODIUM,PORCINE 5,000 UNIT/ML 1 ML VIAL SQ SCH (09:00)
[2023-03-14] MEDS: PREGABALIN 25 MG CAP PO SCH (09:00)
[2023-03-14] MEDS: polyethylene glycoL 3350 17 GM POWD.PACK PO SCH (09:00)
[2023-03-14] MEDS: FUROSEMIDE 80 MG TAB PO SCH (09:00)
[2023-03-14] MEDS: IPRATROPIUM-ALBUTEROL 3 ML NEB INHALATION PRN (09:05)
--- NOTE | 2023-03-14 10:54 | P.PN ---
Subjective Patient is seen for follow-up for end-stage renal disease. She is maintained on Thursday vent is a Thursday schedule. No significant complaints today. New IV being placed. Receiving updraft treatment. Objective - Vital Signs Vital signs: Vital Signs Temp 98.1 F 03/14/23 08:44 Pulse 80 03/14/23 09:21 Resp 16 03/14/23 08:44 BP 101/55 03/14/23 08:44 Pulse Ox 96 03/14/23 09:07 FiO2 Intake & Output 03/13/23 03/14/23 03/14/23 18:59 06:59 18:59 Intake Total 2136 540 10 Output Total 1900 Balance 236 540 10 Intake: IV 10 Invasive Line 2 10 Oral 1736 540 Hemodialysis 400 Output: Hemodialysis 1900 Other: Voiding Method Toilet Toilet Toilet # Voids 1 2 1 - Exam Patient is awake, comfortable distress Examination of the heart S1 and S2 Examination the lungs decreased breath sounds at the bases Abdomen is soft nontender Examination of the lower extremities shows no edema 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 End-stage renal disease maintained on hemodialysis on Thursday schedule. 2. Thrombosed AV graft. Currently using right chest permacath. Patient did undergo fistulogram with balloon angioplasty earlier this month. 3. Right-sided hydronephrosis with exchange of the right ureteral stent on 03/04/2023. Seen by urology. No interventions planned at this time. 4. Sepsis. Possibly urinary source. Urine culture positive for Zuly and E. coli. Blood cultures negative so far. ID following. 5. Chronic kidney disease mineral bone disease maintained on Renvela. Phosphorus level 5.0 dated 03/11/2023. 6. Anemia of chronic kidney disease. On Aranesp. 7. Hyponatremia secondary to chronic kidney disease. 8. Chronic systolic CHF with ejection fraction of 40-45% with moderate aortic stenosis. Plan: Maintain hemodialysis on Thursday schedule. Continue with oral Lasix
[2023-03-14 11:07] LABS: Anisocytosis Slight; HCT 29.1 % (34.0-46.0); HGB 8.7 gm/dL (11.4-16.0); Hypochromasia Marked; MCH 29.4 pg (25.0-35.0); MCHC 29.9 g/dL (31.0-37.0); MCV 98.3 fL (80.0-100.0); Macrocytosis Slight; Mean Platelet Volume 10.4; Platelet Count 160 k/uL (150-450); RBC 2.96 m/uL (3.80-5.40); RDW 17.8 % (11.5-15.5); WBC 9.5 k/uL (3.8-10.6)
[2023-03-14 11:20] LABS: African American GFR (CKD) 21 (>60 ml/min/1.73 sqM); Anion Gap 12 mmol/L; Blood Urea Nitrogen 24 mg/dL (7-17); Calcium 8.3 mg/dL (8.4-10.2); Carbon Dioxide 24 mmol/L (22-30); Chloride 98 mmol/L (98-107); Glucose 185 mg/dL (74-99); Non-African American GFR(CKD) 18 (>60 ml/min/1.73 sqM); Potassium 3.8 mmol/L (3.5-5.1); Sodium 134 mmol/L (137-145)
[2023-03-14 11:38] VITALS: BP 102/57; PULSE 81; RESP 18
[2023-03-14] MEDS: CEFEPIME 1 GM in SODIUM CHLORIDE 0.9% 50 ML IVPB SCH (11:55)
[2023-03-14 12:05] LABS: Glucose,Whole Blood 191 mg/dL (70-110)
--- NOTE | 2023-03-14 13:53 | P.DS ---
Providers Date of admission: 03/10/23 15:34 Expected date of discharge: 03/14/23 Attending physician: Fan Abdi MD Consults: 03/10/23 13:44 Consult Physician Routine Consulting Provider: Zack Duke Consult Reason/Comments: hd Do you want consulting provider notified?: Yes 03/10/23 13:45 Consult Physician Routine Consulting Provider: Lianna García Consult Reason/Comments: sirs/sepsis Do you want consulting provider notified?: Yes 03/10/23 14:58 Consult Physician Routine Consulting Provider: Gil Rosales Consult Reason/Comments: recent ureteral stent placement Do you want consulting provider notified?: Yes Primary care physician: Naeem Herr MD Hospital Course: 83-year-old female with PMH of ESRD on hemodialysis MWF, COPD, diabetes mellitus, hypertension, dyslipidemia, hypothyroidism presents the ED for fever and chills ongoing for the past 2 days. Also reports dysuria, right flank pain, confusion and generalized weakness. Symptoms started after last hemodialysis session yesterday. 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 03/06 Underwent RUE fistulogram and thrombolysis with Dr. Griggs. 03/04 Underwent right ureteral stent replacement with Dr. Peterson. Has hemodialysis catheter that was placed in the LUE a couple months ago by Dr. Khan at [facility]. In the ED she underwent extensive evaluation. Hypotensive BP as low as 82/46. HR 90s. CBC WBC count 21.2, Hg 10.1. CMP Na 134, Cl 94, BUN 40, Cr 3.31, glu 180. Lactic acid 2.8. UA large LE with > 182 WBCs. Flu, RSV, COVID negative. CXR increased density RUL. CT AP moderate right hydronephrosis, urothelial enhancement and thickening, cystitis, right renal edema and perinephric stranding, cirrhotic liver disease. 03/11 Patient was seen and examined. She reports some SOB and wheezing r equesting breathing treatments. Improved fatigue. Mentation improving. CBC WBC 17.8, Hg 8.8. BMP Na 131, Cl 96, bicarb 21, BUN 48, Cr 3.85, glu 158. Repeat lactic acid 1.3. EKG done yesterday shows sinus tachycardia with LBBB, appears similar to previous admissions. Troponin checked elevated at 0.103. Discussed with Dr. García, antibiotics include Daptomycin and Cefepime. Plans for HD today. CBC shows WBC 17.8, Hg 8.8. BMP Na 131, Cl 96, bicarb 21, BUN 48, Cr 3.85, glu 158, Ca 8.1. Phos 5. 03/12 Patient was seen and examined. Feeling well in general. Troponins 0.103 and 0.105. Echo shows EF 40-45% with apical septum hypokinesis, moderate with normally functioning bioprosthetic valve. Urology recommends outpatient follow up. Continued on Daptomycin and Cefepime awaiting blood and urine cultures. HD blood culture also ordered. CXR shows some mild pulmonary vascular congestion, one dose of Lasix 40 mg IV ordered today. CBC shows Hg 8.6. BMP Na 129, Cl 94, BUN 27, Cr 2.65, glu 103, Ca 7.9. 03/13 Patient was seen and examined. BCx negative at 48H. HD catheter BCx negative at 24H. UCx E. coli and yash. Nephrology started Lasix 80 mg PO QD. Daptomycin stopped and patient continued on Cefepime. 03/14 Patient was seen and examined. Pain is better controlled. BCx negative so far. UCx as above. Case discussed with Dr. García, continue Ceftin for 2 weeks. Discussed with pharmacy, ESRD dosing is 250 mg PO QD. Resume HD on a MWF scheduled. Will be prescribed Lasix 80 mg PO QD for 7 days. Follow up with PCP within 1-2 days of discharge. Follow up with Dr. Griggs 03/17. Follow up with Dr. García and Dr. Peterson within 1 week of discharge. Pertinent studies include CXR, CTAP General: non toxic, no distress, appears at stated age Derm: warm, dry Head: atraumatic, normocephalic, symmetric Eyes: EOMI, no lid lag, anicteric sclera Cardiovascular: S1S2 reg, no murmur Lungs: Decreased BS bilateral, no rhonchi, no rales , no accessory muscle use Abd: RLQ TTP without rebound improved. Slightly distended. Soft. R CVA tenderness Ext: no gross muscle atrophy, no edema, no contractures, R chest permacath, LUE fistula with stitches Neuro: no focal neuro deficits Psych: Alert, oriented, appropriate affect Discharge Diagnosis: Severe sepsis due to pyelonephritis with recent uretral stent placement Troponin elevation Mild systolic CHF exacerbation Acute metabolic encephalopathy related to above Normocytic anemia ESRD on HD MWF Resolved: Lactic acidosis. Chronic conditions: COPD, diabetes mellitus, hypertension, dyslipidemia, hypothyroidism This complex discharge took 35 minutes to complete. Patient Condition at Discharge: Stable Plan - Discharge Summary Discharge Rx Participant: No New Discharge Prescriptions: New Cefuroxime [Ceftin] 250 mg PO DAILY 14 Days #14 tab Furosemide [Lasix] 80 mg PO DAILY #7 tab Continue Omeprazole 40 mg PO QAM Multivitamins, Thera [Multivitamin (formulary)] 1 tab PO HS Ferrous Sulfate [Iron (65 MG Elemental)] 325 mg PO BID Sevelamer [Renvela] 800 mg PO W/SUPPER Acetaminophen Tab [Tylenol] 650 mg PO Q6HR PRN tab PRN Reason: Mild Pain Or Fever > 100.5 Vitamin B Complex 1 cap PO DAILY Albuterol Inhaler [Ventolin Hfa Inhaler] 2 puff INHALATION RT-Q4H PRN PRN Reason: Shortness Of Breath Levothyroxine Sodium [Synthroid] 88 mcg PO QAM Tamsulosin [Flomax] 0.4 mg PO HS Hyoscyamine Sulfate [Levsin] 0.125 mg PO TID Loratadine [Claritin] 10 mg PO DAILY PRN PRN Reason: Allergy Symptoms Atorvastatin [Lipitor] 40 mg PO HS Mirabegron [Myrbetriq] 50 mg PO HS Lactulose 20 gm PO TID PRN PRN Reason: Constipation Pregabalin [Lyrica] 25 mg PO DAILY #3 cap Pregabalin [Lyrica] 50 mg PO HS #3 cap carvediloL [Coreg] 3.125 mg PO BID PRN PRN Reason: BP>150 HYDROcodone/APAP 7.5-325MG [[place] 7.5-325] 1 tab PO Q6HR Discharge Medication List Albuterol Inhaler [Ventolin Hfa Inhaler] 2 puff INHALATION RT-Q4H PRN 06/19/21 [History] Levothyroxine Sodium [Synthroid] 88 mcg PO QAM 06/19/21 [History] Omeprazole 40 mg PO QAM 06/19/21 [History] Tamsulosin [Flomax] 0.4 mg PO HS 02/03/22 [History] Hyoscyamine Sulfate [Levsin] 0.125 mg PO TID 07/08/22 [History] Loratadine [Claritin] 10 mg PO DAILY PRN 07/28/22 [History] Atorvastatin [Lipitor] 40 mg PO HS 09/08/22 [History] Mirabegron [Myrbetriq] 50 mg PO HS 10/19/22 [History] Multivitamins, Thera [Multivitamin (formulary)] 1 tab PO HS 10/19/22 [History] Ferrous Sulfate [Iron (65 MG Elemental)] 325 mg PO BID 12/25/22 [History] Lactulose 20 gm PO TID PRN 12/25/22 [History] Sevelamer [Renvela] 800 mg PO W/SUPPER 12/25/22 [History] Acetaminophen Tab [Tylenol] 650 mg PO Q6HR PRN tab 01/03/23 [Rx] Pregabalin [Lyrica] 25 mg PO DAILY #3 cap 01/03/23 [Rx] Pregabalin [Lyrica] 50 mg PO HS #3 cap 01/03/23 [Rx] HYDROcodone/APAP 7.5-325MG [[place] 7.5-325] 1 tab PO Q6HR 03/10/23 [History] Vitamin B Complex 1 cap PO DAILY 03/10/23 [History] carvediloL [Coreg] 3.125 mg PO BID PRN 03/10/23 [History] Cefuroxime [Ceftin] 250 mg PO DAILY 14 Days #14 tab 03/14/23 [Rx] Furosemide [Lasix] 80 mg PO DAILY #7 tab 03/14/23 [Rx] Follow up Appointment(s)/Referral(s): Mahesh Griggs DO [STAFF PHYSICIAN] - 03/17/23 1:30 pm Naeem Herr MD [Primary Care Provider] - 1-2 days Lianna García MD [STAFF PHYSICIAN] - 1 Week Philippe Peterson MD [STAFF PHYSICIAN] - 1 Week Patient Instructions/Handouts: Sepsis (DC) Discharge Disposition: HOME SELF-CARE
== END 2023-03-14 14:20 | disposition home or self-care (01) | DRG 871 ==
LOC: EC 09:35 → 3SCARD 15:34
PROVIDERS: ADMIT Student in an Organized Health Care Education/Training Program; ATTEND Student in an Organized Health Care Education/Training Program
PROC: 5A1D70Z Performance of Urinary Filtration, Intermittent, Less than 6 Hours Per Day (ICD-10-PCS; principal; 2023-03-11)
DX: A41.51 Sepsis due to Escherichia coli [E. coli] (principal); G93.41 Metabolic encephalopathy; N18.6 End stage renal disease; I50.23 Acute on chronic systolic (congestive) heart failure; I13.2 Hypertensive heart and chronic kidney disease with heart failure and with stage 5 chronic kidney disease, or end stage renal disease; E87.20 Acidosis, unspecified; E87.1 Hypo-osmolality and hyponatremia; T82.868A Thrombosis due to vascular prosthetic devices, implants and grafts, initial encounter; N13.6 Pyonephrosis; R65.20 Severe sepsis without septic shock; D63.1 Anemia in chronic kidney disease; E03.9 Hypothyroidism, unspecified; E83.9 Disorder of mineral metabolism, unspecified; E11.22 Type 2 diabetes mellitus with diabetic chronic kidney disease; Z11.52 Encounter for screening for COVID-19; Z66 Do not resuscitate; I08.0 Rheumatic disorders of both mitral and aortic valves; I44.7 Left bundle-branch block, unspecified; K74.60 Unspecified cirrhosis of liver; Z87.440 Personal history of urinary (tract) infections; Z95.2 Presence of prosthetic heart valve; Z99.2 Dependence on renal dialysis; J44.9 Chronic obstructive pulmonary disease, unspecified; R31.0 Gross hematuria; K21.9 Gastro-esophageal reflux disease without esophagitis; M19.90 Unspecified osteoarthritis, unspecified site; R91.8 Other nonspecific abnormal finding of lung field; Y83.2 Surgical operation with anastomosis, bypass or graft as the cause of abnormal reaction of the patient, or of later complication, without mention of misadventure at the time of the procedure; M79.7 Fibromyalgia; G89.29 Other chronic pain; M54.2 Cervicalgia; M54.9 Dorsalgia, unspecified; Z96.653 Presence of artificial knee joint, bilateral; Z88.5 Allergy status to narcotic agent; Z88.0 Allergy status to penicillin; Z88.2 Allergy status to sulfonamides; E78.5 Hyperlipidemia, unspecified; Z79.890 Hormone replacement therapy; Z79.891 Long term (current) use of opiate analgesic; Z79.899 Other long term (current) drug therapy; Z79.82 Long term (current) use of aspirin
CPT/HCPCS: 36415; 71045; 71046; 74177; 80048; 80053; 81001; 83605; 84100; 84484; 85025; 85027; 87040; 87077; 87086; 87186; 87636; 90935; 93005; 93306; 94640; 94760; 96361; 96365; 96366; 96367; 96372; 99285

== ENCOUNTER 2023-03-30 09:24 | Observation (INO) | payer MEDICARE, BC ==
[~2023-03-30 09:24] MED LIST changes: +DEXAMETHASONE SOD PHOSPHATE 4 MG/ML 1 ML VIAL IV ONE; +HYDROmorphone 0.5 MG/0.5 ML SYRINGE IVP PRN; +LACTATED RINGERS 1,000 ML IV SCH; +LIDOCAINE 1% (10MG/ML) FOR IV START INTRADERMA PRN; +MIDAZOLAM 2 MG/2 ML VIAL IV PRN; +ONDANSETRON 4 MG/2 ML VIAL IVP ONE; -SODIUM CHLORIDE 0.9% 500 ML 500 ML IV SCH; +fentaNYL (PF) 50 MCG/ML 2 ML AMP IV PRN
[2023-03-30 10:24] LABS: Glucose,Whole Blood 105 mg/dL (70-110)
[2023-03-30 10:28] LABS: Anisocytosis Slight; Basophils # (A) 0.1 k/uL (0-0.2); Basophils % (A) 1 %; Eosinophils # (A) 0.2 k/uL (0-0.7); Eosinophils % (A) 2 %; HCT 28.5 % (34.0-46.0); Hypochromasia Moderate; Lymphocytes # (A) 1.2 k/uL (1.0-4.8); Lymphocytes % (A) 16 %; MCH 29.6 pg (25.0-35.0); MCHC 31.7 g/dL (31.0-37.0); MCV 93.4 fL (80.0-100.0); Macrocytosis Slight; Mean Platelet Volume 9.8; Monocytes # (A) 0.2 k/uL (0-1.0); Monocytes % (A) 2 %; Neutrophils # (A) 5.7 k/uL (1.3-7.7); Neutrophils % (A) 77 %; Platelet Count 216 k/uL (150-450); RBC 3.05 m/uL (3.80-5.40); RDW 19.3 % (11.5-15.5); WBC 7.4 k/uL (3.8-10.6)
[2023-03-30 11:03] LABS: African American GFR (CKD) 10 (>60 ml/min/1.73 sqM); Anion Gap 14 mmol/L; Blood Urea Nitrogen 49 mg/dL (7-17); Calcium 9.1 mg/dL (8.4-10.2); Carbon Dioxide 22 mmol/L (22-30); Chloride 103 mmol/L (98-107); Glucose 101 mg/dL (74-99); Non-African American GFR(CKD) 8 (>60 ml/min/1.73 sqM); Sodium 139 mmol/L (137-145)
[2023-03-30] MEDS ORDERED: SODIUM CHLORIDE 0.9% 1,000 ML IV ONE (11:06)
[2023-03-30] MEDS ORDERED: DEXAMETHASONE SOD PHOSPHATE 4 MG/ML 1 ML VIAL IVP ONE (11:07)
[2023-03-30] MEDS ORDERED: ONDANSETRON 4 MG/2 ML VIAL IVP ONE (11:08)
[2023-03-30 11:09] LABS: Potassium 5.3 mmol/L (3.5-5.1)
[2023-03-30] MEDS ORDERED: MIDAZOLAM 2 MG/2 ML VIAL IVP ONE (11:29)
[2023-03-30] MEDS ORDERED: fentaNYL (PF) 50 MCG/ML 2 ML AMP IVP ONE ×2 (11:29→11:48)
[2023-03-30] MEDS ORDERED: HEPARIN SODIUM,PORCINE (1 ML) 2,000 UNIT in SODIUM CHLORIDE 0.9% 500 ML 500 ML IRRIGATION ONE (12:30)
[2023-03-30] MEDS ORDERED: KETAMINE HCL IN 0.9 % NACL 50 MG/5 ML SYRINGE ONE (12:30)
[2023-03-30] MEDS ORDERED: MIDAZOLAM 2 MG/2 ML VIAL ONE (12:30)
[2023-03-30] MEDS ORDERED: ROPIVACAINE 5 MG/ML 30 ML VIAL ONE (12:30)
[2023-03-30] MEDS ORDERED: LIDOCAINE 2%-EPI 1:100,000 20 ML VIAL ONE (12:30)
[2023-03-30] MEDS ORDERED: HEPARIN SODIUM,PORCINE 5,000 UNIT/ML 1 ML VIAL ONE (12:30)
[2023-03-30] MEDS ORDERED: ceFAZolin 2 GM in SODIUM CHLORIDE 0.9% 500 ML 500 ML IRRIGATION ONE (12:30)
[2023-03-30] MEDS ORDERED: IOPAMIDOL-370 100ML BTL MISCELLANE ONE (12:56)
--- NOTE | 2023-03-30 13:12 | P.ANPRN ---
Procedure Note - Anesthesia - Nerve Block Performed Left Axillary Single Time Out Performed: Yes (1129) Date of Procedure: 03/30/23 Procedure Start Time: 11:30 Procedure Stop Time: 11:37 Location of Patient: PreOp Indication: Acute Post-Operative Pain, Requested by Surgeon Specifically requested for management of pain by DrRomana: Mahesh Griggs Sedation Type: Sedate with meaningful contact maintained Preparation: Sterile Prep Position: Supine Catheter: None Needle Types: Pajunk Needle Gauge: 21 Ultrasound used to visualize needle placement: Yes Ultrasound used to observe medication spread: Yes Injectate: Other (see comment) (Ropi 0.5% 20cc, Lido 2% with epi 20cc, 50/50.) Narrative: 10cc aliquots at each median, radial ulnar and mskcut Blood Aspirated: No Pain Paresthesia on Injection Noted: No Resistance on Injection: Normal Image Stored and Saved: Yes Events: Uneventful and Well Tolerated
[2023-03-30 14:06] LABS: Glucose,Whole Blood 126 mg/dL (70-110)
--- NOTE | 2023-03-30 14:07 | P.OP ---
Date of Procedure: 03/30/23 Preoperative Diagnosis: Thrombosed left upper extremity loop arteriovenous graft Postoperative Diagnosis: same Left upper extremity outflow stenosis Procedure(s) Performed: open thrombectomy fistulogram left upper extremity balloon angioplasty of the outflow venous stenosis Anesthesia: regional Surgeon: Mahesh Griggs Pathology: none sent Condition: stable Disposition: PACU Indications for Procedure: 83 year old female with history of left upper extremity loop AVG which thrombosed last week presents to the OR for open thrombectomy and possible revision of the graft. Operative Findings: thrombosed graft with outflow stenosis >70% Description of Procedure: After written informed consent was obtained the patient all risks benefits competitions were described the patient is brought to the OR and laid in a supine position with their left arm outstretched on an armboard. The area of the arm was prepped and draped in usual sterile fashion. Local anesthetic was then placed overlying the loop graft at the apex and a small incision was create d with a 15 blade scalpel. Dissection was carried down to the graft and the graft was encircled with vessel loops proximally and distally. A small transverse incision was created with an 11 blade scalpel and using a number 4 Alana balloon thrombectomy was performed fist at the venous outflow with large amount of thrombus removed and improved back bleeding. Thrombectomy was then performed at the arterial aspect of the graft with a large thrombus plug removed and brisk pulsatile flow noted. A 9F sheath was then placed up the arterial side and angiogram was obtained demonstrating no residual thrombus without evidence of stenosis and brisk filling down the radial and ulnar arteries. Attention was then placed to the venous outflow and venogram was obtained demonstrating >70% stenosis at the venous anastomosis. A guidewire was placed across the lesion and balloon angioplasty was performed with a 5x40mm evercross balloon. Final venogram demonstrating 90% resolution of stenosis with good brisk filling of the basilic and cephalic veins. The cephalic vein was diminutive throughout. The graft was then closed with interrupted 6-0 Prolene sutures and control was released. Good thrill noted throughout the graft with good augmentation. The incision was then closed in a multilayer fashion and skin was dressed with glue.
[2023-03-30] MEDS ORDERED: NALOXONE 0.4 MG/ML 1 ML VIAL IV PRN (14:08)
[2023-03-30] MEDS ORDERED: ALBUTEROL HFA INHALER INHALATION PRN (14:11)
[2023-03-30] MEDS ORDERED: polyethylene glycoL 3350 17 GM POWD.PACK PO PRN (14:11)
[2023-03-30] MEDS ORDERED: LACTULOSE 20 GM/30 ML CUP PO PRN (14:11)
[2023-03-30] MEDS ORDERED: LORATADINE 10 MG TAB PO PRN (14:11)
--- NOTE | 2023-03-30 14:14 | FL ---
Fluoroscopy INDICATION: Upper extremity thrombectomy FINDINGS: Fluoroscopy time: 3 minutes 15 seconds. Total dose area product (DAP) in uGy*m?, mGy*cm? (or similar): 1.7837 Images obtained: 118. IMPRESSION: 1. Documentation of fluoroscopy.
[2023-03-30] MEDS: HYDROcodone/APAP 5-325MG 1 EACH TAB PO PRN ×2 (14:38→22:30)
[2023-03-30] MEDS: HYOSCYAMINE SULFATE 0.125 MG TAB PO SCH ×2 (16:52→22:26)
[2023-03-30] MEDS ORDERED: FOLIC ACID-VIT B COMPLEX-VIT C 1 CAP PO SCH (17:30)
[2023-03-30] MEDS ORDERED: SEVELAMER 800 MG TAB PO SCH (17:30)
[2023-03-30] MEDS ORDERED: NON FORMULARY DRUG (Mirabegron [Myrbetriq] 50 MG Tab.Er.24h) PO SCH (21:00)
[2023-03-30] MEDS ORDERED: TAMSULOSIN 0.4 MG CAP.ER.24H PO SCH (21:00)
[2023-03-30] MEDS ORDERED: PREGABALIN 50 MG CAP PO SCH (21:00)
[2023-03-30] MEDS ORDERED: ATORVASTATIN 40 MG TAB PO SCH (21:00)
[2023-03-30] MEDS: MULTIVITAMINS, THERA 1 EACH TAB PO SCH ×2 (22:25→22:26)
[2023-03-30] MEDS: FERROUS SULFATE 325 MG TAB PO SCH (22:26)
[2023-03-31 03:17] VITALS: RESP 16
[2023-03-31] MEDS: HYDROcodone/APAP 5-325MG 1 EACH TAB PO PRN (03:25)
[2023-03-31] MEDS: FERROUS SULFATE 325 MG TAB PO SCH (08:37)
[2023-03-31] MEDS: HYOSCYAMINE SULFATE 0.125 MG TAB PO SCH (08:38)
[2023-03-31 08:45] VITALS: BP 109/48; PULSE 87; TEMP 97.5
[2023-03-31] MEDS ORDERED: LEVOTHYROXINE 88 MCG TAB PO SCH (09:00)
[2023-03-31] MEDS ORDERED: FUROSEMIDE 80 MG TAB PO SCH (09:00)
[2023-03-31] MEDS ORDERED: PREGABALIN 25 MG CAP PO SCH (09:00)
[2023-03-31] MEDS ORDERED: PANTOPRAZOLE 40 MG TABLET PO SCH (09:00)
[2023-03-31] MEDS ORDERED: ASPIRIN 81 MG PO SCH (09:00)
--- NOTE | 2023-03-31 09:18 | P.DS ---
Providers Expected date of discharge: 03/31/23 Attending physician: Mahesh Griggs DO Consults: 03/30/23 14:15 Consult Physician Routine Consulting Provider: Zack Duke Consult Reason/Comments: renal failure Do you want consulting provider notified?: Yes Primary care physician: Naeem Herr MD Hospital Course: 83-year-old female with history of left upper extremity loop AV graft which had thrombosed last week and had presented to the OR for open thrombectomy and possible revision of the graft. She was found to have left upper extremity outflow stenosis. Patient is postop day #1 for left upper extremity fistulogram, open thrombectomy and balloon angioplasty of the outflow venous stenosis. Patient underwent hemodialysis yesterday via her tunneled catheter. Left upper extremity with palpable thrill and audible bruit. Patient denies any pain, redness or swelling. Exam General appearance: The patient is alert, oriented, appears in no acute distress. HET: Head is normocephalic and atraumatic. Neck: Supple. Extremities: Normal skin color and turgor. Left upper extremity loop graft with palpable thrill and audible bruit. No redness, drainage or swelling. Neurological: No focal deficits. Strength and sensation are grossly intact. Assessment 1. Thrombosed Left upper extremity loop arteriovenous graft status post fistulogram and open thrombectomy 2. Left upper extremity outflow stenosis status post balloon angioplasty 3. End-stage renal disease requiring hemodialysis Plan Patient is status post hemodialysis yesterday as scheduled. She is cleared for discharge. She will follow-up with Dr. Griggs in 2 weeks. She may use her left upper extremity AV graft tomorrow 03/02/2023 for hemodialysis. Prescription given to patient. The impression and plan of care has been dictated as directed. I performed a history and examination of this patient, discussed the same with the dictator. I agree with the dictator's note ,documented as a scribe. Any additional findings or plans will be noted. Procedures: Date of Procedure: 03/30/23 Preoperative Diagnosis: Thrombosed left upper extremity loop arteriovenous graft Postoperative Diagnosis: same Left upper extremity outflow stenosis Procedure(s) Performed: open thrombectomy fistulogram left upper extremity balloon angioplasty of the outflow venous stenosis Patient Condition at Discharge: Good Plan - Discharge Summary Discharge Rx Participant: No New Discharge Prescriptions: Continue Omeprazole 40 mg PO QAM Multivitamins, Thera [Multivitamin (formulary)] 1 tab PO HS Ferrous Sulfate [Iron (65 MG Elemental)] 325 mg PO BID Sevelamer [Renvela] 800 mg PO W/SUPPER Vitamin B Complex 1 cap PO W/SUPPER polyethylene glycoL 3350 [Miralax] 17 gm PO QAM PRN PRN Reason: Constipation Albuterol Inhaler [Ventolin Hfa Inhaler] 2 puff INHALATION RT-Q4H PRN PRN Reason: Shortness Of Breath Levothyroxine Sodium [Synthroid] 88 mcg PO QAM Tamsulosin [Flomax] 0.4 mg PO HS Hyoscyamine Sulfate [Levsin] 0.125 mg PO TID Loratadine [Claritin] 10 mg PO DAILY PRN PRN Reason: Allergy Symptoms Atorvastatin [Lipitor] 40 mg PO HS Mirabegron [Myrbetriq] 50 mg PO HS Lactulose 20 gm PO TID PRN PRN Reason: Constipation Pregabalin [Lyrica] 25 mg PO DAILY #3 cap Pregabalin [Lyrica] 50 mg PO HS #3 cap carvediloL [Coreg] 3.125 mg PO BID PRN PRN Reason: SBP>150 HYDROcodone/APAP 7.5-325MG [[place] 7.5-325] 1 tab PO Q6HR Furosemide [Lasix] 80 mg PO DAILY #7 tab Aspirin 81 mg PO DAILY Discharge Medication List Albuterol Inhaler [Ventolin Hfa Inhaler] 2 puff INHALATION RT-Q4H PRN 06/19/21 [History] Levothyroxine Sodium [Synthroid] 88 mcg PO QAM 06/19/21 [History] Omeprazole 40 mg PO QAM 06/19/21 [History] Tamsulosin [Flomax] 0.4 mg PO HS 02/03/22 [History] Hyoscyamine Sulfate [Levsin] 0.125 mg PO TID 07/08/22 [History] Loratadine [Claritin] 10 mg PO DAILY PRN 07/28/22 [History] Atorvastatin [Lipitor] 40 mg PO HS 09/08/22 [History] Mirabegron [Myrbetriq] 50 mg PO HS 10/19/22 [History] Multivitamins, Thera [Multivitamin (formulary)] 1 tab PO HS 10/19/22 [History] Ferrous Sulfate [Iron (65 MG Elemental)] 325 mg PO BID 12/25/22 [History] Lactulose 20 gm PO TID PRN 12/25/22 [History] Sevelamer [Renvela] 800 mg PO W/SUPPER 12/25/22 [History] Pregabalin [Lyrica] 25 mg PO DAILY #3 cap 01/03/23 [Rx] Pregabalin [Lyrica] 50 mg PO HS #3 cap 01/03/23 [Rx] HYDROcodone/APAP 7.5-325MG [[place] 7.5-325] 1 tab PO Q6HR 03/10/23 [History] Vitamin B Complex 1 cap PO W/SUPPER 03/10/23 [History] carvediloL [Coreg] 3.125 mg PO BID PRN 03/10/23 [History] Furosemide [Lasix] 80 mg PO DAILY #7 tab 03/14/23 [Rx] Aspirin 81 mg PO DAILY 03/27/23 [History] polyethylene glycoL 3350 [Miralax] 17 gm PO QAM PRN 03/30/23 [History] Follow up Appointment(s)/Referral(s): Mahesh Griggs DO [STAFF PHYSICIAN] - 2 Weeks Patient Instructions/Handouts: Mechanical Thrombectomy (DC) Activity/Diet/Wound Care/Special Instructions: Activity as tolerated. May shower, no tub bathing. Watch for signs of infection at left upper extremity including redness, drainage, swelling, fever greater than 100.4F May use left upper extremity loop graft for dialysis starting 03/02/2023 Continue dialysis as ordered by nephrology, patient is scheduled Thursday Discharge Disposition: HOME SELF-CARE
== END 2023-03-31 10:44 | disposition home or self-care (01) ==
LOC: OR 09:24 → 3SCARD 14:08 → OR 03-31 10:44
PROVIDERS: ADMIT Surgery; ATTEND Surgery
DX: T82.858A Stenosis of other vascular prosthetic devices, implants and grafts, initial encounter (principal); G89.18 Other acute postprocedural pain; I87.1 Compression of vein
CPT/HCPCS: 94640; 64415; 80048; 85025; 36831; C1757; J2250; J1644; J1100; J0690; J2405; J3010; Q9967; 90935

== ENCOUNTER → 2023-04-02 | Outpatient (CLI) | payer MEDICARE, BC ==
--- NOTE | 2023-04-02 14:14 | CT ---
EXAMINATION: CT ABDOMEN AND PELVIS WITHOUT IV CONTRAST DATE OF EXAMINATION: 04/02/2023. COMPARISON: 03/10/2023.. INDICATION: Left lower quadrant abdominal mass. PROCEDURE: Axial CT of the abdomen and pelvis was performed with sagittal and coronal reformatted i mages without contrast enhancement. The exam is limited because some types of pathology may not be ad equately demonstrated due to lack of contrast enhancement. CT dose lowering techniques were used, to include: automated exposure control, adjustment for patient size, and/or use of iterative reconstruct ion. FINDINGS: LOWER CHEST : The lower lobe nodule abutting the pleural surface measuring 8.8 mm on series 4 image 8 is unchanged. Left lower lobe nodule during 7.2 mm on series 4 image 9 is also unchanged. Nodules a re unchanged dating back to a CT of the chest on 08/21/2020 and can be considered benign with no furth er follow-up recommended. There are no pleural or pericardial effusions. ABDOMEN: Liver and Biliary system: There is a diffuse nodular contour to the liver which is compatible with c irrhosis. Adrenal glands: There is a 1.7 cm right adrenal nodule which is also unchanged with the same time fr jessy of the nodules.. Kidneys and ureters: There is a right-sided nephroureteral stent which is appropriately positioned. There are no definitive stones seen along the course of the stent at this time. There is no hydroneph rosis. Left kidney and ureter appear unremarkable. Spleen: The spleen is enlarged measuring 15 cm in AP dimension.. Pancreas: Normal. Gallbladder: Normal. Lymph nodes, Peritoneum and mesentery: There is no mesenteric or retroperitoneal lymphadenopathy. Gastrointestinal tract: There are no dilated loops of bowel or free intraperitoneal air. . The appe ndix is normal. There is a moderate amount of stool throughout the colon. Aorta/IVC: There is moderate vascular calcification throughout the abdominal aorta without evidence of aneurysmal dilation. IVC normal. Abdominal wall: Normal. PELVIS: Fluid: There is no free fluid in the pelvis. Lymph Nodes: There is no pelvic or inguinal lymphadenopathy.. Urinary bladder: Normal. BONES: There are no osseous destructive lesions.. ADDITIONAL SIGNIFICANT FINDINGS: None. IMPRESSION: 1. Right-sided nephroureteral stent with no gross hydronephrosis or definitive stones seen along the course of the ureter. 2. Cirrhosis and splenomegaly. 3. No acute findings otherwise seen..
== END | disposition home or self-care (01) ==
LOC: RADCTMAIN 12:42
PROVIDERS: ATTEND Internal Medicine
DX: K74.60 Unspecified cirrhosis of liver (principal); R16.1 Splenomegaly, not elsewhere classified; R19.04 Left lower quadrant abdominal swelling, mass and lump; Z96.0 Presence of urogenital implants
CPT/HCPCS: 74176

== ENCOUNTER → 2023-04-09 | Outpatient (CLI) | payer MEDICARE, BC ==
[2023-04-09 17:09] LABS: Appearance,Urine Turbid (Clear); Bilirubin,Urine Negative (Negative); Blood,Urine Large (Negative); Color,Urine Yellow; Glucose,Urine (UA) Negative (Negative); Ketones,Urine Negative (Negative); Leukocyte Esterase,Urine Large (Negative); Nitrite,Urine Negative (Negative); Protein,Urine 2+ (Negative); RBC,Urine 170 /hpf (0-5); Squamous Epithelial Cell,Urine 10 /hpf (0-4); Urobilinogen,Urine <2.0 mg/dL (<2.0); WBC,Urine >182 /hpf (0-5)
== END | disposition home or self-care (01) ==
LOC: LABWHC1 15:34
PROVIDERS: ATTEND Internal Medicine Infectious Disease
DX: N39.0 Urinary tract infection, site not specified (principal)
CPT/HCPCS: 81001; 87077; 87086; 87186

== ENCOUNTER 2023-04-12 15:42 | Inpatient (IN) | payer MEDICARE, BC ==
--- NOTE | 2023-04-12 16:28 | ED ---
General Adult HPI - General Chief complaint: Nausea/Vomiting/Diarrhea Stated complaint: poss UTI Time Seen by Provider: 04/12/23 15:58 Source: patient, family Mode of arrival: wheelchair Limitations: no limitations - History of Present Illness Initial comments: Dictation was produced using [employer] dictation software. please excuse any grammatical, word or spelling errors. Chief Complaint: 83-year-old female presents emergency part for abdominal pain concerns of urinary tract infection History of Present Illness: Patient is an 83-year-old female she has past medical history of end-stage renal disease. She's been getting dialysis Thursday. Patient's been having any lower abdominal cramping starting today. States that she's been urinating frequently. Recently diagnosed with vancomycin-resistant enterococcus per she has undergone antibiotic treatment directed by infectious disease. She most recently was placed on linezolid however did not really tolerated so she is currently not taking any medications at this time. Denies any nausea and vomiting. States pain is constant. Pituitary. The ROS documented in this emergency department record has been reviewed and confirmed by me. Those systems with pertinent positive or negative responses have been documented in the HPI. All other systems are other negative and/or noncontributory. - Related Data Home Medications Medication Instructions Recorded Confirmed Albuterol Inhaler [Ventolin Hfa 2 puff INHALATION RT-Q4H PRN 06/19/21 03/27/23 Inhaler] Levothyroxine Sodium [Synthroid] 88 mcg PO QAM 06/19/21 03/30/23 Omeprazole 40 mg PO QAM 06/19/21 03/30/23 Tamsulosin [Flomax] 0.4 mg PO HS 02/03/22 03/27/23 Hyoscyamine Sulfate [Levsin] 0.125 mg PO TID 07/08/22 03/30/23 Loratadine [Claritin] 10 mg PO DAILY PRN 07/28/22 03/27/23 Atorvastatin [Lipitor] 40 mg PO HS 09/08/22 03/30/23 Mirabegron [Myrbetriq] 50 mg PO HS 10/19/22 03/30/23 Multivitamins, Thera [Multivitamin 1 tab PO HS 10/19/22 03/27/23 (formulary)] Ferrous Sulfate [Iron (65 MG 325 mg PO BID 12/25/22 03/30/23 Elemental)] Lactulose 20 gm PO TID PRN 12/25/22 03/27/23 Sevelamer [Renvela] 800 mg PO W/SUPPER 12/25/22 03/30/23 HYDROcodone/APAP 7.5-325MG [[place] 1 tab PO Q6HR 03/10/23 03/30/23 7.5-325] Vitamin B Complex 1 cap PO W/SUPPER 03/10/23 03/30/23 carvediloL [Coreg] 3.125 mg PO BID PRN 03/10/23 03/27/23 Aspirin 81 mg PO DAILY 03/27/23 03/30/23 polyethylene glycoL 3350 [Miralax] 17 gm PO QAM PRN 03/30/23 03/30/23 Previous Rx's Medication Instructions Recorded Pregabalin [Lyrica] 25 mg PO DAILY #3 cap 01/03/23 Pregabalin [Lyrica] 50 mg PO HS #3 cap 01/03/23 Furosemide [Lasix] 80 mg PO DAILY #7 tab 03/14/23 Allergies Allergy/AdvReac Type Severity Reaction Status Date / Time Penicillins Allergy Anaphylaxis Verified 03/30/23 09:58 Sulfa (Sulfonamide Allergy Rash/Hives Verified 03/30/23 09:58 Antibiotics) clindamycin AdvReac c diff Verified 03/30/23 09:58 morphine AdvReac Nausea & Verified 03/30/23 09:58 Vomiting Review of Systems ROS Statement: Those systems with pertinent positive or pertinent negative responses have been documented in the HPI. ROS Other: All systems not noted in ROS Statement are negative. Past Medical History Past Medical History: Dialysis, Hyperlipidemia, Hypertension Additional Past Medical History / Comment(s): hypothyroidism, chronic back/neck pain-pain rt leg and walks with walker, mitral valve murmur, hemodialysis MWF-av access rt chest, c diff yrs ago when took clindamycin for tooth extraction,UTI,has lung nodules. has bundle block on ekgs, cystitis. controls diabetes with diet. takes carvedilol if Systolic over 150.hasnt needed,. , small open area on coccyx that she normally wears a cushion pad. History of Any Multi-Drug Resistant Organisms: VRE Date of last positivie culture/infection: 03/25/23 MDRO Source:: Urine Past Surgical History: Hysterectomy, Joint Replacement Additional Past Surgical History / Comment(s): neck [id number] surgery, heart aortic valve replacement, rt ureter stent x 3, kristi knee replacements, left forearm graft for Hemodialysis, right subclavian HD cath 11/2022 Past Anesthesia/Blood Transfusion Reactions: No Reported Reaction Additional Past Anesthesia/Blood Transfusion Reaction / Comment(s): states "no problems with intubation but was told by Anesthesia vocal cords are anterior", no problems with prior blood transfusion. adopted Past Psychological History: No Psychological Hx Reported Smoking Status: Never smoker Past Alcohol Use History: None Reported Past Drug Use History: None Reported - Past Family History Family Family Medical History: No Reported History Additional Family Medical History / Comment(s): adopted General Exam - General Exam Comments Initial Comments: PHYSICAL EXAM: General Impression: Alert and oriented x3, not in acute distress HEENT: Normocephalic atraumatic, extra-ocular movements intact, pupils equal and reactive to light bilaterally, mucous membranes moist. Cardiovascular: Heart regular rate and rhythm Chest: Able to complete full sentences, no retractions, no tachypnea Abdomen: abdomen soft, non-tender, non-distended, no organomegaly Musculoskeletal: Pulses present and equal in all extremities, no peripheral edema Motor: no focal deficits noted Neurological: CN II-XII grossly intact, no focal motor or sensory deficits noted Skin: Intact with no visualized rashes Psych: Normal affect and mood Limitations: no limitations Course Vital Signs 04/12/23 15:50 Temperature 97.7 F Pulse Rate 87 Respiratory 20 Rate Blood Pressure 108/71 O2 Sat by Pulse 100 Oximetry EKG Findings - EKG Comments: EKG Findings:: My EKG interpretation: Ventricular rate 70, sinus rhythm, left bundle branch block,. Interval to 1, QRS 170, QTC 480. No MI prolongation, no QTC prolongation, no ST or T-wave changes noted. . Overall, this EKG is unremarkable Medical Decision Making - Medical Decision Making Was pt. sent in by a medical professional or institution (, PA, COMMERCIAL LOAN ADMINISTRATOR, urgent care, hospital, or senior care...) When possible be specific @ -No Did you speak to anyone other than the patient for history (EMS, parent, family, police, friend...)? What history was obtained from this source @ -No Did you review nursing and triage notes (agree or disagree)? Why? @ -I reviewed and agree with nursing and triage notes Were old charts reviewed (outside hosp., previous admission, EMS record, old EKG, old radiological studies, urgent care reports/EKG's, senior care records)? Report findings @ -No old charts were reviewed Differential Diagnosis (chest pain, altered mental status, abdominal pain women, abdominal pain men, vaginal bleeding, musculoskeletal, weakness, fever, dyspnea, syncope, headache, dizziness, GI bleed, back pain, seizure, CVA, palpatations, mental health)? @ -Differential Abdominal Pain Women: Appendicitis, Cholecystitis, diverticulosis, ischemic bowel, pancreatitis, hepatitis, UTI, gastroenteritis, AAA, incarcerated hernia, bowel obstruction, constipation, inflammatory bowel, hepatitis, peptic ulcer disease, splenic infarction, perforated viscus, vulvitis, ovarian torsion, PID, kidney stone, placenta abruption, this is not meant to be an all-inclusive list EKG interpreted by me (3pts min.). @ -See above X-rays interpreted by me (1pt min.). @ -None done CT interpreted by me (1pt min.). @ -None done U/S interpreted by me (1pt. min.). @ -None done What testing was considered but not performed or refused? (CT, X-rays, U/S, labs)? Why? @ -None What meds were considered but not given or refused? Why? @ -None Did you discuss the management of the patient with other professionals (professionals i.e. , PA, COMMERCIAL LOAN ADMINISTRATOR, lab, RT, psych nurse, rn social services, supplier engineer, teacher, parole or probation officer, case checker)? Give summary @ -Case discussed with hospitalist for admission Was smoking cessation discussed for >3mins.? @ -No Was critical care preformed (if so, how long)? @ -No Were there social determinants of health that impacted care today? How? (Homelessness, low income, unemployed, alcoholism, drug addiction, transportation, low edu. Level, literacy, decrease access to med. care, retirement, rehab)? @ -No Was there de-escalation of care discussed even if they declined (Discuss DNR or withdrawal of care, Hospice)? DNR status @ -No What co-morbidities impacted this encounter? (DM, HTN, Smoking, COPD, CAD, Cancer, CVA, ARF, Chemo, Hep., AIDS, mental health diagnosis, sleep apnea, morbid obesity)? @ -History of drug resistant UTI of bacteria infection Was patient admitted / discharged? Hospital course, mention meds given and route, prescriptions, significant lab abnormalities, going to OR and other pertinent info. @ -83-year-old female with history of antibiotic resistant UTIs presents to the ER with abdominal pain urinary symptoms and constitutional symptoms. Vital signs upon arrival are within acceptable limits. Patient well-appearing. I wish and within acceptable limits. Urinalysis positive for infection. Some clear patient has a recurring infection or if this is result of stasis. Nonetheless chart review was performed patient had urinalysis obtained by infectious disease doctor 3 days ago showing Klebsiella UTI with pseudomonas UTI. Patient given dose of cefepime will be admitted for further care. Undiagnosed new problem with uncertain prognosis? @ -No Drug Therapy requiring intensive monitoring for toxicity (Heparin, Nitro, Insulin, Cardizem)? @ -No Were any procedures done? @ -No Diagnosis/symptom? Acute, or Chronic, or Acute on Chronic? Uncomplicated (withoutiut systemic symptoms) or Complicated (systemic symptoms)? @ UTI Side effects of treatment? @ -No Exacerbation, Progression, or Severe Exacerbation? @ -No Poses a threat to life or bodily function? How? (Chest pain, USA, VT, pneumonia, PE, COPD, DKA, ARF, appy, cholecystitis, CVA, Diverticulitis, Homicidal, Suicidal, threat to staff... and all critical care pts) @ -yes - Lab Data Result diagrams: 04/12/23 16:32 04/12/23 16:32 Lab Results 04/12/23 04/12/23 04/12/23 Range/Units 16:32 16:32 16:32 WBC 4.2 (3.8-10.6) k/uL RBC 3.01 L (3.80-5.40) m/uL Hgb 9.3 L (11.4-16.0) gm/dL Hct 28.5 L (34.0-46.0) % MCV 94.6 (80.0-100.0) fL MCH 30.8 (25.0-35.0) pg MCHC 32.6 (31.0-37.0) g/dL RDW 20.2 H (11.5-15.5) % Plt Count 64 L D (150-450) k/uL MPV 11.4 Neutrophils % 62 % Lymphocytes % 26 % Monocytes % 6 % Eosinophils % 2 % Basophils % 1 % Neutrophils # 2.6 (1.3-7.7) k/uL Lymphocytes # 1.1 (1.0-4.8) k/uL Monocytes # 0.3 (0-1.0) k/uL Eosinophils # 0.1 (0-0.7) k/uL Basophils # 0.0 (0-0.2) k/uL Manual Slide Review Performed Anisocytosis Moderate Macrocytosis Slight Sodium 136 L (137-145) mmol/L Potassium 3.6 (3.5-5.1) mmol/L Chloride 95 L (98-107) mmol/L Carbon Dioxide 29 (22-30) mmol/L Anion Gap 12 mmol/L BUN 19 H (7-17) mg/dL Creatinine 1.61 H (0.52-1.04) mg/dL Est GFR (CKD-EPI)AfAm 34 (>60 ml/min/1.73 sqM) Est GFR (CKD-EPI)NonAf 30 (>60 ml/min/1.73 sqM) Glucose 146 H (74-99) mg/dL Plasma Lactic Acid Rolly (0.7-2.0) mmol/L Calcium 8.7 (8.4-10.2) mg/dL Magnesium 1.7 (1.6-2.3) mg/dL Total Bilirubin 0.7 (0.2-1.3) mg/dL AST 37 H (14-36) U/L ALT 23 (4-34) U/L Alkaline Phosphatase 151 H (38-126) U/L Total Protein 7.3 (6.3-8.2) g/dL Albumin 3.8 (3.5-5.0) g/dL Urine Color Yellow Urine Appearance Turbid H (Clear) Urine pH 7.5 (5.0-8.0) Ur Specific [place] 1.018 (1.001-1.035) Urine Protein 1+ H (Negative) Urine Glucose (UA) Negative (Negative) Urine Ketones Negative (Negative) Urine Blood Large H (Negative) Urine Nitrite Negative (Negative) Urine Bilirubin Negative (Negative) Urine Urobilinogen <2.0 (<2.0) mg/dL Ur Leukocyte Esterase Large H (Negative) Urine RBC >182 H (0-5) /hpf Urine WBC >182 H (0-5) /hpf Urine WBC Clumps Many H (None) /hpf Urine Bacteria Occasional H (None) /hpf 04/12/23 Range/Units 16:32 WBC (3.8-10.6) k/uL RBC (3.80-5.40) m/uL Hgb (11.4-16.0) gm/dL Hct (34.0-46.0) % MCV (80.0-100.0) fL MCH (25.0-35.0) pg MCHC (31.0-37.0) g/dL RDW (11.5-15.5) % Plt Count (150-450) k/uL MPV Neutrophils % % Lymphocytes % % Monocytes % % Eosinophils % % Basophils % % Neutrophils # (1.3-7.7) k/uL Lymphocytes # (1.0-4.8) k/uL Monocytes # (0-1.0) k/uL Eosinophils # (0-0.7) k/uL Basophils # (0-0.2) k/uL Manual Slide Review Anisocytosis Macrocytosis Sodium (137-145) mmol/L Potassium (3.5-5.1) mmol/L Chloride (98-107) mmol/L Carbon Dioxide (22-30) mmol/L Anion Gap mmol/L BUN (7-17) mg/dL Creatinine (0.52-1.04) mg/dL Est GFR (CKD-EPI)AfAm (>60 ml/min/1.73 sqM) Est GFR (CKD-EPI)NonAf (>60 ml/min/1.73 sqM) Glucose (74-99) mg/dL Plasma Lactic Acid Rolly 2.6 H* (0.7-2.0) mmol/L Calcium (8.4-10.2) mg/dL Magnesium (1.6-2.3) mg/dL Total Bilirubin (0.2-1.3) mg/dL AST (14-36) U/L ALT (4-34) U/L Alkaline Phosphatase (38-126) U/L Total Protein (6.3-8.2) g/dL Albumin (3.5-5.0) g/dL Urine Color Urine Appearance (Clear) Urine pH (5.0-8.0) Ur Specific [place] (1.001-1.035) Urine Protein (Negative) Urine Glucose (UA) (Negative) Urine Ketones (Negative) Urine Blood (Negative) Urine Nitrite (Negative) Urine Bilirubin (Negative) Urine Urobilinogen (<2.0) mg/dL Ur Leukocyte Esterase (Negative) Urine RBC (0-5) /hpf Urine WBC (0-5) /hpf Urine WBC Clumps (None) /hpf Urine Bacteria (None) /hpf Disposition Clinical Impression: UTI (urinary tract infection) Disposition: ADMITTED IP TO THIS HOSP Condition: Fair Referrals: Naeem Herr MD [Primary Care Provider] - 1-2 days Decision Time: 18:04
[2023-04-12 17:01] LABS: Appearance,Urine Turbid (Clear); Bacteria,Urine Occasional /hpf; Bilirubin,Urine Negative (Negative); Blood,Urine Large (Negative); Color,Urine Yellow; Glucose,Urine (UA) Negative (Negative); Ketones,Urine Negative (Negative); Leukocyte Esterase,Urine Large (Negative); Nitrite,Urine Negative (Negative); PH, Urine 7.5 (5.0-8.0); Protein,Urine 1+ (Negative); RBC,Urine >182 /hpf (0-5); Specific Gravity,Urine 1.018 (1.001-1.035); Urobilinogen,Urine <2.0 mg/dL (<2.0); WBC,Urine >182 /hpf (0-5)
[2023-04-12 17:12] LABS: ALT 23 U/L (4-34); AST 37 U/L (14-36); African American GFR (CKD) 34 (>60 ml/min/1.73 sqM); Albumin 3.8 g/dL (3.5-5.0); Alkaline Phosphatase 151 U/L (38-126); Anion Gap 12 mmol/L; Blood Urea Nitrogen 19 mg/dL (7-17); Calcium 8.7 mg/dL (8.4-10.2); Carbon Dioxide 29 mmol/L (22-30); Chloride 95 mmol/L (98-107); Glucose 146 mg/dL (74-99); Magnesium 1.7 mg/dL (1.6-2.3); Non-African American GFR(CKD) 30 (>60 ml/min/1.73 sqM); Potassium 3.6 mmol/L (3.5-5.1); Sodium 136 mmol/L (137-145); Total Bilirubin 0.7 mg/dL (0.2-1.3); Total Protein 7.3 g/dL (6.3-8.2)
[2023-04-12 17:13] LABS: Anisocytosis Moderate; Basophils % (A) 1 %; Eosinophils # (A) 0.1 k/uL (0-0.7); Eosinophils % (A) 2 %; HCT 28.5 % (34.0-46.0); HGB 9.3 gm/dL (11.4-16.0); Lymphocytes # (A) 1.1 k/uL (1.0-4.8); Lymphocytes % (A) 26 %; MCH 30.8 pg (25.0-35.0); MCHC 32.6 g/dL (31.0-37.0); MCV 94.6 fL (80.0-100.0); Macrocytosis Slight; Mean Platelet Volume 11.4; Monocytes # (A) 0.3 k/uL (0-1.0); Monocytes % (A) 6 %; Neutrophils # (A) 2.6 k/uL (1.3-7.7); Neutrophils % (A) 62 %; RBC 3.01 m/uL (3.80-5.40); RDW 20.2 % (11.5-15.5); WBC 4.2 k/uL (3.8-10.6)
[2023-04-12 17:36] LABS: Platelet Count 64 k/uL (150-450)
[2023-04-12] MEDS ORDERED: CEFEPIME 2 GM in SODIUM CHLORIDE 0.9% 100 ML IVPB STA (17:37)
[2023-04-12] MEDS ORDERED: NALOXONE 0.4 MG/ML 1 ML VIAL IV PRN (17:59)
[2023-04-12] MEDS: SODIUM CHLORIDE 0.9% 1,000 ML IV SCH (19:01)
[2023-04-12] MEDS: HYDROcodone/APAP 7.5-325MG 1 EACH TAB PO PRN (19:02)
[2023-04-13] MEDS ORDERED: LACTULOSE 20 GM/30 ML CUP PO PRN (01:46)
[2023-04-13] MEDS ORDERED: ALBUTEROL NEBULIZED 2.5 MG/3 ML INHALATION PRN (01:46)
[2023-04-13] MEDS ORDERED: HYDROcodone/APAP 7.5-325MG 1 EACH TAB PO PRN (01:46)
[2023-04-13] MEDS ORDERED: carvediloL 3.125 MG TAB PO PRN (01:46)
--- NOTE | 2023-04-13 01:48 | P.HPIM ---
History of Present Illness H&P Date: 04/12/23 Patient is a 83-year-old female with a PMH of ESRD on hemodialysis MWF, systolic CHF EF 40-45%, hypertension, type II DM, hyperlipidemia, hypothyroidism who presents to the emergency room with complaints of abdominal pain and concerns for UTI. Patient reports she has been following with Dr. García for multidrug resistant UTIs with recently being diagnosed with VRE. Reports she was prescribed linezolid but after a few days developed a suspected reaction with myalgias amongst other symptoms and had stopped taking her medication. She then underwent a repeat urine culture that was ordered previously on 04/09, which grew pansensitive Klebsiella and Pseudomonas. States that her last dose of rodney ezolid was on 04/09. She is currently not taking any antibiotics at home. Reports that she has developed gradually worsening suprapubic discomfort as well as increased urinary frequency and dysuria. Denied flank or back pain. Also denied fever or chills. Of note, the patient was recently admitted to the hospital from 03/10-03/14 for sepsis secondary to pyelonephritis. Laboratory evaluation revealed a UA consistent with UTI, lactic acid 2.6, AST 37, alk phos 151, BUN 19, creatinine 1.6, sodium 136, hemoglobin 9.3, platelets 64 (baseline ~170). EKG reveals sinus rhythm with sinus arrhythmia with a left bundle-branch block at 78 bpm as reviewed by me. ED documentation reviewed and case discussed with ED provider. Review of systems: Pertinent positives and negatives as discussed in HPI, a complete review of systems was performed and all other systems are negative. Physical examination: Vital signs reviewed General: non toxic, no distress, appears at stated age, normal weight Derm: no unusual rashes/lesions, warm Head: atraumatic, normocephalic, symmetric Eyes: EOMI, no lid lag, anicteric sclera, pupils equal round reactive to light ENT: Nose and ears atraumatic Neck: No cervical lymphadenopathy, trachea midline, supple Mouth: no lip lesion, mucus membranes moist Cardiovascular: S1S2 reg, no murmur, positive dorsalis pedis pulse bilateral, no edema, right chest wall hemodialysis catheter in place Lungs: CTA bilateral, no rhonchi, no rales, no accessory muscle use Abdominal: soft, minimal superpubic tenderness, no CVA tenderness noted, no guarding Ext: muscle strength 5 out of 5 in all 4 extremities grossly, no gross muscle atrophy, no contractures, Neuro: CN II-XI grossly intact, no gross focal neuro deficits Psych: Alert, oriented, appropriate affect Assessment: 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 Data Review: Laboratory evaluation revealed a UA consistent with UTI, lactic acid 2.6, AST 37, alk phos 151, BUN 19, creatinine 1.6, sodium 136, hemoglobin 9.3, platelets 64 (baseline ~170). Plan: Continue patient on cefepime hemodialysis dosing for now 1g q24h Infectious disease consulted Patient reports her last hemodialysis session was earlier today. Consider nephrology consult if patient hospitalized until Thursday Monitor lactic acid levels for resolution Continue with home medications Monitor CBC DVT prophylaxis: IPCDs The patient is admitted with an anticipated greater than 2 midnight stay for evaluation of UTI CODE STATUS: Full Code Discussed with: Patient Anticipated discharge place: Home Past Medical History Past Medical History: Dialysis, Hyperlipidemia, Hypertension Additional Past Medical History / Comment(s): hypothyroidism, chronic back/neck pain-pain rt leg and walks with walker, mitral valve murmur, hemodialysis MWF-av access rt chest, c diff yrs ago when took clindamycin for tooth extraction,UT I,has lung nodules. has bundle block on ekgs, cystitis. controls diabetes with diet. takes carvedilol if Systolic over 150.hasnt needed,. , small open area on coccyx that she normally wears a cushion pad. History of Any Multi-Drug Resistant Organisms: VRE Date of last positivie culture/infection: 03/25/23 MDRO Source:: Urine Past Surgical History: Hysterectomy, Joint Replacement Additional Past Surgical History / Comment(s): neck [id number] surgery, heart aortic valve replacement, rt ureter stent x 3, kristi knee replacements, left forearm graft for Hemodialysis, right subclavian HD cath 11/2022 Past Anesthesia/Blood Transfusion Reactions: No Reported Reaction Additional Past Anesthesia/Blood Transfusion Reaction / Comment(s): states "no problems with intubation but was told by Anesthesia vocal cords are anterior", no problems with prior blood transfusion. adopted Past Psychological History: No Psychological Hx Reported Smoking Status: Never smoker Past Alcohol Use History: None Reported Past Drug Use History: None Reported - Past Family History Family Family Medical History: No Reported History Additional Family Medical History / Comment(s): adopted Medications and Allergies Home Medications Medication Instructions Recorded Confirmed Type Albuterol Inhaler [Ventolin Hfa 2 puff INHALATION RT-Q4H PRN 06/19/21 04/12/23 History Inhaler] Levothyroxine Sodium [Synthroid] 88 mcg PO DAILY 06/19/21 04/12/23 History Omeprazole 40 mg PO DAILY 06/19/21 04/12/23 History Tamsulosin [Flomax] 0.4 mg PO HS 02/03/22 04/12/23 History Hyoscyamine Sulfate [Levsin] 0.125 mg PO TID PRN 07/08/22 04/12/23 History Loratadine [Claritin] 10 mg PO DAILY PRN 07/28/22 04/12/23 History Atorvastatin [Lipitor] 40 mg PO HS 09/08/22 04/12/23 History Mirabegron [Myrbetriq] 50 mg PO HS 10/19/22 04/12/23 History Multivitamins, Thera [Multivitamin 1 tab PO HS 10/19/22 04/12/23 History (formulary)] Ferrous Sulfate [Iron (65 MG 325 mg PO BID 12/25/22 04/12/23 History Elemental)] Lactulose 20 gm PO TID PRN 12/25/22 04/12/23 History Sevelamer [Renvela] 800 mg PO W/SUPPER 12/25/22 04/12/23 History Pregabalin [Lyrica] 25 mg PO DAILY #3 cap 01/03/23 04/12/23 Rx Pregabalin [Lyrica] 50 mg PO HS #3 cap 01/03/23 04/12/23 Rx HYDROcodone/APAP 7.5-325MG [[place] 1 tab PO Q6HR PRN 03/10/23 04/12/23 History 7.5-325] Vitamin B Complex 1 cap PO W/SUPPER 03/10/23 04/12/23 History carvediloL [Coreg] 3.125 mg PO BID PRN 03/10/23 04/12/23 History Furosemide [Lasix] 80 mg PO DAILY #7 tab 03/14/23 04/12/23 Rx Aspirin 81 mg PO DAILY 03/27/23 04/12/23 History polyethylene glycoL 3350 [Miralax] 17 gm PO DAILY PRN 03/30/23 04/12/23 History Allergies Allergy/AdvReac Type Severity Reaction Status Date / Time Penicillins Allergy Anaphylaxis Verified 04/12/23 18:11 Sulfa (Sulfonamide Allergy Rash/Hives Verified 04/12/23 18:11 Antibiotics) clindamycin AdvReac c diff Verified 04/12/23 18:11 morphine AdvReac Nausea & Verified 04/12/23 18:11 Vomiting Physical Exam Vitals: Vital Signs Temp Pulse Resp BP Pulse Ox 04/12/23 20:36 80 18 113/45 96 04/12/23 19:00 78 20 107/39 97 04/12/23 15:50 97.7 F 87 20 108/71 100 Intake and Output 04/12/23 04/12/23 04/12/23 06:59 14:59 22:59 Other: Weight 72 kg Results CBC & Chem 7: 04/12/23 16:32 04/12/23 16:32 Labs: Abnormal Lab Results - Last 24 Hours (Table) 04/12/23 04/12/23 04/12/23 Range/Units 16:32 16:32 16:32 RBC 3.01 L (3.80-5.40) m/uL Hgb 9.3 L (11.4-16.0) gm/dL Hct 28.5 L (34.0-46.0) % RDW 20.2 H (11.5-15.5) % Plt Count 64 L D (150-450) k/uL Sodium 136 L (137-145) mmol/L Chloride 95 L (98-107) mmol/L BUN 19 H (7-17) mg/dL Creatinine 1.61 H (0.52-1.04) mg/dL Glucose 146 H (74-99) mg/dL Plasma Lactic Acid [place] (0.7-2.0) mmol/L AST 37 H (14-36) U/L Alkaline Phosphatase 151 H (38-126) U/L Urine Appearance Turbid H (Clear) Urine Protein 1+ H (Negative) Urine Blood Large H (Negative) Ur Leukocyte Esterase Large H (Negative) Urine RBC >182 H (0-5) /hpf Urine WBC >182 H (0-5) /hpf Urine WBC Clumps Many H (None) /hpf Urine Bacteria Occasional H (None) /hpf 04/12/23 Range/Units 16:32 RBC (3.80-5.40) m/uL Hgb (11.4-16.0) gm/dL Hct (34.0-46.0) % RDW (11.5-15.5) % Plt Count (150-450) k/uL Sodium (137-145) mmol/L Chloride (98-107) mmol/L BUN (7-17) mg/dL Creatinine (0.52-1.04) mg/dL Glucose (74-99) mg/dL Plasma Lactic Acid [place] 2.6 H* (0.7-2.0) mmol/L AST (14-36) U/L Alkaline Phosphatase (38-126) U/L Urine Appearance (Clear) Urine Protein (Negative) Urine Blood (Negative) Ur Leukocyte Esterase (Negative) Urine RBC (0-5) /hpf Urine WBC (0-5) /hpf Urine WBC Clumps (None) /hpf Urine Bacteria (None) /hpf Thrombosis Risk Factor Assmnt - Choose All That Apply Any of the Below Risk Factors Present?: Yes Each Factor Represents 1 point: Obesity (BMI >25) Other Risk Factors: Yes Each Risk Factor Represents 3 Points: Age 75 years or older Other congenital or acquired thrombophilia - If yes, enter type in comment: No Thrombosis Risk Factor Assessment Total Risk Factor Score: 4 Thrombosis Risk Factor Assessment Level: Moderate Risk
[2023-04-13] MEDS: HYDROcodone/APAP 7.5-325MG 1 EACH TAB PO PRN ×3 (06:00→21:02)
[2023-04-13] MEDS: LEVOTHYROXINE 88 MCG TAB PO SCH (06:01)
[2023-04-13 07:06] LABS: Anisocytosis Moderate; HCT 27.7 % (34.0-46.0); Hypochromasia Slight; MCH 31.1 pg (25.0-35.0); MCHC 32.4 g/dL (31.0-37.0); Macrocytosis Slight; Mean Platelet Volume 11.3; RBC 2.89 m/uL (3.80-5.40); RDW 20.1 % (11.5-15.5); WBC 4.4 k/uL (3.8-10.6)
[2023-04-13 07:11] LABS: Platelet Count 68 k/uL (150-450)
[2023-04-13 07:15] LABS: African American GFR (CKD) 24 (>60 ml/min/1.73 sqM); Anion Gap 13 mmol/L; Blood Urea Nitrogen 29 mg/dL (7-17); Calcium 8.7 mg/dL (8.4-10.2); Carbon Dioxide 28 mmol/L (22-30); Chloride 96 mmol/L (98-107); Glucose 92 mg/dL (74-99); Non-African American GFR(CKD) 20 (>60 ml/min/1.73 sqM); Potassium 3.9 mmol/L (3.5-5.1); Sodium 137 mmol/L (137-145)
[2023-04-13 07:49] LABS: Glucose,Whole Blood 98 mg/dL (70-110)
[2023-04-13] MEDS ORDERED: HYOSCYAMINE SULFATE 0.125 MG TAB PO PRN (08:09)
[2023-04-13] MEDS ORDERED: LORATADINE 10 MG TAB PO PRN (08:09)
[2023-04-13] MEDS ORDERED: polyethylene glycoL 3350 17 GM POWD.PACK PO PRN (08:09)
[2023-04-13] MEDS: PREGABALIN 25 MG CAP PO SCH (08:23)
[2023-04-13] MEDS: FERROUS SULFATE 325 MG TAB PO SCH ×2 (08:23→20:55)
[2023-04-13] MEDS: FUROSEMIDE 80 MG TAB PO SCH (08:23)
[2023-04-13] MEDS: ASPIRIN 81 MG PO SCH ×2 (08:23→08:25)
[2023-04-13] MEDS: PANTOPRAZOLE 40 MG TABLET PO SCH (08:23)
--- NOTE | 2023-04-13 11:31 | P.NPCON ---
History of Present Illness - Reason for Consult end stage renal disease - History of Present Illness Reason for consultation: End-stage renal disease History of present illness: Patient is a 83-year-old female seen a new consultation for end-stage renal disease. She is meeting on hemodialysis on Thursday schedule for a permacath. She also has a functioning left upper extremity AV fistula which is now being used. Patient came to the hospital due to recurrent UTIs. Patient states she was recently diagnosed with UTI and was given antibiotics by infectious disease. Patient states she was given a two-week course and only took 1 week and stopped the medication due to side effects. Patient states she was having generalized discomfort as well as pain in her face so she stopped taking the antibiotic. She has chronic hydronephrosis with right ureteral stents which was Lasix changed in February 2023. She denies fever or chills. She does admit to dysuria. No vomiting or diarrhea. Last hemodialysis was yesterday. Vital signs are stable. General: No acute distress. HEENT: Head exam is unremarkable. LUNGS: No audible rhonchi or wheezes. HEART: Rate and Rhythm are regular. ABDOMEN: Nontender. Obese. EXTREMITITES: No edema. Past Medical History Past Medical History: Dialysis, Hyperlipidemia, Hypertension Additional Past Medical History / Comment(s): hypothyroidism, chronic back/neck pain-pain rt leg and walks with walker, mitral valve murmur, hemodialysis MWF-av access rt chest, c diff yrs ago when took clindamycin for tooth extraction,UTI,has lung nodules. has bundle block on ekgs, cystitis. controls diabetes with diet. takes carvedilol if Systolic over 150.hasnt needed,. , small open area on coccyx that she normally wears a cushion pad. History of Any Multi-Drug Resistant Organisms: VRE Date of last positivie culture/infection: 03/25/23 MDRO Source:: Urine Past Surgical History: Hysterectomy, Joint Replacement Additional Past Surgical History / Comment(s): neck [id number] surgery, heart aortic valve replacement, rt ureter stent x 3, kristi knee replacements, left forearm graft for Hemodialysis, right subclavian HD cath 11/2022 Past Anesthesia/Blood Transfusion Reactions: No Reported Reaction Additional Past Anesthesia/Blood Transfusion Reaction / Comment(s): states "no problems with intubation but was told by Anesthesia vocal cords are anterior", no problems with prior blood transfusion. adopted Past Psychological History: No Psychological Hx Reported Smoking Status: Never smoker Past Alcohol Use History: None Reported Past Drug Use History: None Reported - Past Family History Family Family Medical History: No Reported History Additional Family Medical History / Comment(s): adopted Medications and Allergies Home Medications Medication Instructions Recorded Confirmed Type Albuterol Inhaler [Ventolin Hfa 2 puff INHALATION RT-Q4H PRN 06/19/21 04/12/23 History Inhaler] Levothyroxine Sodium [Synthroid] 88 mcg PO DAILY 06/19/21 04/12/23 History Omeprazole 40 mg PO DAILY 06/19/21 04/12/23 History Tamsulosin [Flomax] 0.4 mg PO HS 02/03/22 04/12/23 History Hyoscyamine Sulfate [Levsin] 0.125 mg PO TID PRN 07/08/22 04/12/23 History Loratadine [Claritin] 10 mg PO DAILY PRN 07/28/22 04/12/23 History Atorvastatin [Lipitor] 40 mg PO HS 09/08/22 04/12/23 History Mirabegron [Myrbetriq] 50 mg PO HS 10/19/22 04/12/23 History Multivitamins, Thera [Multivitamin 1 tab PO HS 10/19/22 04/12/23 History (formulary)] Ferrous Sulfate [Iron (65 MG 325 mg PO BID 12/25/22 04/12/23 History Elemental)] Lactulose 20 gm PO TID PRN 12/25/22 04/12/23 History Sevelamer [Renvela] 800 mg PO W/SUPPER 12/25/22 04/12/23 History Pregabalin [Lyrica] 25 mg PO DAILY #3 cap 01/03/23 04/12/23 Rx Pregabalin [Lyrica] 50 mg PO HS #3 cap 01/03/23 04/12/23 Rx HYDROcodone/APAP 7.5-325MG [[place] 1 tab PO Q6HR PRN 03/10/23 04/12/23 History 7.5-325] Vitamin B Complex 1 cap PO W/SUPPER 03/10/23 04/12/23 History carvediloL [Coreg] 3.125 mg PO BID PRN 03/10/23 04/12/23 History Furosemide [Lasix] 80 mg PO DAILY #7 tab 03/14/23 04/12/23 Rx Aspirin 81 mg PO DAILY 03/27/23 04/12/23 History polyethylene glycoL 3350 [Miralax] 17 gm PO DAILY PRN 03/30/23 04/12/23 History Allergies Allergy/AdvReac Type Severity Reaction Status Date / Time Penicillins Allergy Anaphylaxis Verified 04/12/23 18:11 Sulfa (Sulfonamide Allergy Rash/Hives Verified 04/12/23 18:11 Antibiotics) clindamycin AdvReac c diff Verified 04/12/23 18:11 morphine AdvReac Nausea & Verified 04/12/23 18:11 Vomiting Physical Exam Vitals: Vital Signs Temp Pulse Pulse Resp BP BP Pulse Ox 04/13/23 07:41 98.2 F 74 16 114/72 99 04/13/23 01: 98.2 F 78 16 92/50 94 L 04/12/23 20:36 80 18 113/45 96 04/12/23 19:00 78 20 107/39 97 04/12/23 15:50 97.7 F 87 20 108/71 100 Intake and Output 04/12/23 04/13/23 04/13/23 22:59 06:59 14:59 Other: # Voids 1 1 Weight 72 kg Results - Lab Results Most recent lab results Calcium 8.7 mg/dL (8.4-10.2) 04/13/23 06:21 Magnesium 1.7 mg/dL (1.6-2.3) 04/12/23 16:32 04/13/23 06:21 04/13/23 06:21 Assessment and Plan Plan: Assessment: 1. End-stage renal disease may continue on hemodialysis on Thursday schedule. Patient has permacath and also a fistula. Fistula just recently started being used. 2. Recurrent urinary tract infections. On antibiotics per infectious disease. 3. Chronic right hydronephrosis with right ureteral stent last exchanged February 2023. 4. Anemia of chronic kidney disease. Rule out deficiency. 5. Chronic kidney disease mineral bone disease maintained on Renvela. 6. Left lower quadrant mobile mass. CAT scan showed no findings. Plan: Hemodialysis Thursday. Check phosphorus level. Check iron studies. Follow-up cultures. Antibiotics per infectious disease. Check left lower quadrant ultrasound. Case discussed with primary team. Thank you for the consultation. I will continue to follow the patient with you during her hospital stay.
[2023-04-13 11:38] LABS: Glucose,Whole Blood 131 mg/dL (70-110)
--- NOTE | 2023-04-13 12:11 | P.PN ---
Subjective Progress Note Date: 04/13/23 Hospital course: Patient is a very pleasant 83-year-old female with a past medical history of recurrent multidrug resistant UTIs following infectious disease, ESRD on dialysis Mondays/Wednesdays/Fridays, hypertension, hyperlipidemia, chronic systolic heart failure with previously known EF of 40-45%, bioprosthetic aortic valve replacement, hypothyroidism, iron deficiency anemia, diet controlled diabetes mellitus, left bundle-branch block, and GERD. She presented to the emergency department with a chief complaint of abdominal pain and concern for UTI. Patient reports recently completing extended course of Linezolid on 04/09/23 secondary to VRE UTI and is currently no longer on any antibiotics. Patient underwent full evaluation in the emergency department. Vital signs upon arrival show blood pressure 108/71, heart rate 87, respiratory rate 20, temp 97.7F, and SpO2 100% on room air. Labs completed and reviewed. CBC showing normocytic anemia with hemoglobin of 9.3 which is above patient's baseline hemoglobin and acute thrombocytopenia with platelet count of 64. BMP showing elevated renal function as expected with patient's ESRD with BUN of 19, creatinine 1.61, and GFR of 30. Initial lactate was 2.6 and liver profile showing elevated AST of 37 and alkaline phosphatase 151. Urinalysis was concerning for infection with turbid appearance, blood, leukocytes, greater than 182 RBCs and greater than 182 WBCs. EKG was completed showing normal sinus rhythm at 78 bpm with left bundle branch block (left bundle-branch is a chronic and previously known finding). Patient was started on cefepime based upon most recent urine culture and sensitivity report obtained 04/09/23 positive for pseudomonas aeruginosa and Klebsiella oxytoca. Patient admitted under our servi lubna with consultation to infectious disease for recurrent multidrug resistant UTI and nephrology for management of dialysis. Physical exam: Patient seen and fully evaluated at bedside this morning. She is resting comfortably and currently denies having any pain or complaints. Upon further evaluation patient is noted to have palpable mass left lower quadrant of abdomen. Discussed with patient that we will obtain an ultrasound for further evaluation. Vital signs reviewed and stable. General: Nontoxic, no distress and appears stated age. Derm: Skin warm and dry, normal coloration for ethnicity. Head: Atraumatic, normocephalic and symmetric. Eyes: EOMs intact, no lid lag, and anicteric sclera Mouth: no lip lesions, mucus membranes moist Cardiovascular: regular rate and rhythm with normal S1S2, systolic murmur, positive posterior tibial pulses bilaterally, and cap refill < 2 seconds. Tunnel dialysis catheter right anterior chest with no surrounding erythema or drainage and dressing is clean, dry, and intact.. AV fistula left upper extremity, bruit and thrill intact. Lungs: Respirations even, regular, and unlabored on room air. Lungs CTA bilaterally, no rhonchi, no rales, no wheezing, and no accessory muscle usage. Abdominal: soft, slight tenderness upon palpation to suprapubic region and palpable mass noted to left lower quadrant approximately the size of a golf ba ll. Ext: ROM intact. No gross muscle atrophy, no edema, no contractures Neuro: Speech clear, face symmetrical and CN II-XII grossly intact with no noted focal neuro deficits Psych: Alert and oriented to person, place, time, and situation. Appropriate and pleasant affect. Assessment and Plan of Care: Recurrent multidrug resistant UTIs Lactic acidosis, resolved -Upon review of chart recent urine culture obtained 04/09/23 was positive for pseudomonas aeruginosa and Klebsiella oxytoca. Patient to continue with cefepime 1 g daily (secondary to ESRD and renal dosing for patient on dialysis). -Infectious disease consulted, appreciate recommendations -Order placed for strict intake and output. -Bladder scan to monitor for urinary retention. -Follow-up on blood culture and urine culture results. -Symptomatic care and pain management. ESRD on dialysis Mondays/Wednesdays/Fridays Anemia of chronic disease with iron deficiency Thrombocytopenia -Consult placed to nephrology for management of dialysis. -Telemetry monitoring. Palpable abdominal mass left lower quadrant -Order placed for limited abdominal ultrasound to rule out lipoma versus other Chronic systolic heart failure with previously known EF of 40-45% History of bioprosthetic aortic valve replacement Hypertension Hyperlipidemia Left bundle-branch block -Reviewed most recent echocardiogram completed 03/11/23 showing an impaired EF of 40-45%. -Telemetry monitoring -Continue cardiac medication regimen with aspirin 81 mg daily, atorvastatin 40 mg daily, carvedilol 3.125 mg twice daily as needed for systolic pressure greater than 150, and Lasix 80 mg daily. Peripheral neuropathy -Continue daily medication regimen with Lyrica 25 mg daily Pressure ulcer to coccyx, present upon arrival -Order placed for nursing to perform wound care applying barrier cream and Mepilex as well as orders were turning every 2 hours to offload pressure from coccyx. Data reviewed: Labs completed and reviewed. CBC revealing Hemoglobin stable at 9.0 along with thrombocytopenia with platelet count 68. BMP showing chloride 96, BUN 29, creatinine 2.20, and GFR of 20. Vital signs reviewed and stable. Blood pressure 114/72, heart rate 74, respiratory rate 16, temp 98.2F, SpO2 of 99% on room air. CODE STATUS: DO NOT RESUSCITATE/DO NOT INTUBATE DVT prophylaxis: SCDs Anticipated discharge date: Clinical course to determine, likely 48-[address]: Home Patient was seen independently by Nurse Pracitioner. This document was prepared using [employer] dictation software. Please allow for errors in rubber goods tester, while rare they do occur. Kevin Carmona NP rendered care for this patient independently, reviewed the findings and plan as documented in the note above. I did not physically speak with or examine the patient on this date. Objective - Vital Signs Vital signs: Vital Signs Temp 98.2 F 04/13/23 07:41 Pulse 74 04/13/23 07:41 Resp 16 04/13/23 07:41 BP 114/72 04/13/23 07:41 Pulse Ox 99 04/13/23 07:41 FiO2 Intake & Output 04/12/23 04/13/23 04/13/23 18:59 06:59 18:59 Weight 72 kg 72 kg Other: # Voids 1 - Labs CBC & Chem 7: 04/13/23 06:21 04/13/23 06:21 Labs: Abnormal Lab Results - Last 24 Hours (Table) 04/12/23 04/12/23 04/12/23 Range/Units 16:32 16:32 16:32 RBC 3.01 L (3.80-5.40) m/uL Hgb 9.3 L (11.4-16.0) gm/dL Hct 28.5 L (34.0-46.0) % RDW 20.2 H (11.5-15.5) % Plt Count 64 L D (150-450) k/uL Sodium 136 L (137-145) mmol/L Chloride 95 L (98-107) mmol/L BUN 19 H (7-17) mg/dL Creatinine 1.61 H (0.52-1.04) mg/dL Glucose 146 H (74-99) mg/dL Plasma Lactic Acid Rolly (0.7-2.0) mmol/L AST 37 H (14-36) U/L Alkaline Phosphatase 151 H (38-126) U/L Urine Appearance Turbid H (Clear) Urine Protein 1+ H (Negative) Urine Blood Large H (Negative) Ur Leukocyte Esterase Large H (Negative) Urine RBC >182 H (0-5) /hpf Urine WBC >182 H (0-5) /hpf Urine WBC Clumps Many H (None) /hpf Urine Bacteria Occasional H (None) /hpf 04/12/23 04/13/23 04/13/23 Range/Units 16:32 06:21 06:21 RBC 2.89 L (3.80-5.40) m/uL Hgb 9.0 L (11.4-16.0) gm/dL Hct 27.7 L (34.0-46.0) % RDW 20.1 H (11.5-15.5) % Plt Count 68 L (150-450) k/uL Sodium (137-145) mmol/L Chloride 96 L (98-107) mmol/L BUN 29 H (7-17) mg/dL Creatinine 2.20 H (0.52-1.04) mg/dL Glucose (74-99) mg/dL Plasma Lactic Acid Rolly 2.6 H* (0.7-2.0) mmol/L AST (14-36) U/L Alkaline Phosphatase (38-126) U/L Urine Appearance (Clear) Urine Protein (Negative) Urine Blood (Negative) Ur Leukocyte Esterase (Negative) Urine RBC (0-5) /hpf Urine WBC (0-5) /hpf Urine WBC Clumps (None) /hpf Urine Bacteria (None) /hpf
--- NOTE | 2023-04-13 14:04 | US ---
EXAMINATION TYPE: US abdomen limited DATE OF EXAM: 04/13/2023 COMPARISON: NONE CLINICAL INDICATION: Female, 83 years old with history of palpable mass LLQ r/o lipoma vs hematoma; p alpable area within left panis felt for awhile, no injury, no skin changes, no pain TECHNIQUE: Soft tissue scan at LLQ FINDINGS: Complex cystic structure seen just under the dermis measuring 3.1 x 2.0 x 2.3cm, no fashion styling intern al vascularity noted *area is seen on recent CT IMPRESSION: 1. Complex hypoechoic structure may be partially cystic. Correlate for abscess. Hematoma could be con sidered within the differential..
[2023-04-13] MEDS ORDERED: NON FORMULARY DRUG (Vitamin B Complex [Vitamin B Complex] 1 EACH Capsule) PO SCH (17:30)
[2023-04-13 17:32] LABS: Glucose,Whole Blood 143 mg/dL (70-110)
[2023-04-13] MEDS: SEVELAMER 800 MG TAB PO SCH (17:47)
[2023-04-13] MEDS ORDERED: CEFEPIME 1 GM in SODIUM CHLORIDE 0.9% 50 ML IVPB SCH (19:00)
[2023-04-13 20:12] LABS: Glucose,Whole Blood 134 mg/dL (70-110)
[2023-04-13] MEDS: SODIUM CHLORIDE 0.9% 1,000 ML IV SCH (20:52)
[2023-04-13] MEDS: MULTIVITAMINS, THERA 1 EACH TAB PO SCH (20:55)
[2023-04-13] MEDS: TAMSULOSIN 0.4 MG CAP.ER.24H PO SCH (20:55)
[2023-04-13] MEDS: PREGABALIN 50 MG CAP PO SCH (20:55)
[2023-04-13] MEDS: ATORVASTATIN 40 MG TAB PO SCH (20:55)
[2023-04-13] MEDS: NON FORMULARY DRUG (Mirabegron [Myrbetriq] 50 MG Tab.Er.24h) PO SCH (20:57)
--- NOTE | 2023-04-13 21:45 | P.CONS ---
History of Present Illness - Reason for Consult Consult date: 04/13/23 - History of Present Illness Patient is a 83-year-old female with a past medical history significant for hypertension hyperlipidemia end-stage renal disease on dialysis Thursday through the right chest wall permacatheter patient also have a functioning left upper extremity AV fistula patient still makes urine and did have a history of recurrent UTI recently evaluated in the outpatient setting and the patient did have a positive urine culture on 03/25/2023 that did grew out VRE patient was given a 1 week course of Zyvox by her urologist another week course was given to the patient which apparently patient did not took because of some GI side effects patient not being brought to the hospital concerning for generalized weakness complaining of pain all over also complaining of burning of urine but no hematuria suprapubic or flank pain did have some nausea but no vomiting patient on presentation to the hospital was afebrile no fever has been called subsequently patient did have white count of 4.4 creatinine is 2.20 UA was positive with large leukocyte esterase more than 182 WBC patient last urine culture done on 04/01/2023 did grew Klebsiella and Pseudomonas aeruginosa patient was started on cefepime infectious disease was consulted for further management of antibiotic therapy Past Medical History Past Medical History: Dialysis, Hyperlipidemia, Hypertension Additional Past Medical History / Comment(s): hypothyroidism, chronic back/neck pain-pain rt leg and walks with walker, mitral valve murmur, hemodialysis MWF-av access rt chest, c diff yrs ago when took clindamycin for tooth extraction,UTI,has lung nodules. has bundle block on ekgs, cystitis. controls diabetes with diet. takes carvedilol if Systolic over 150.hasnt needed,. , small open area on coccyx that she normally wears a cushion pad. History of Any Multi-Drug Resistant Organisms: VRE Year Discovered:: 03/25/23 MDRO Source:: Urine Past Surgical History: Hysterectomy, Joint Replacement Additional Past Surgical History / Comment(s): neck [id number] surgery, heart aortic valve replacement, rt ureter stent x 3, kristi knee replacements, left forearm graft for Hemodialysis, right subclavian HD cath 11/2022 Past Anesthesia/Blood Transfusion Reactions: No Reported Reaction Additional Past Anesthesia/Blood Transfusion Reaction / Comm: states "no problems with intubation but was told by Anesthesia vocal cords are anterior", no problems with prior blood transfusion. adopted Past Psychological History: No Psychological Hx Reported Smoking Status: Never smoker Past Alcohol Use History: None Reported Past Drug Use History: None Reported - Past Family History Family Family Medical History: No Reported History Additional Family Medical History / Comment(s): adopted Medications and Allergies Home Medications Medication Instructions Recorded Confirmed Type Albuterol Inhaler [Ventolin Hfa 2 puff INHALATION RT-Q4H PRN 06/19/21 04/12/23 History Inhaler] Levothyroxine Sodium [Synthroid] 88 mcg PO DAILY 06/19/21 04/12/23 History Omeprazole 40 mg PO DAILY 06/19/21 04/12/23 History Tamsulosin [Flomax] 0.4 mg PO HS 02/03/22 04/12/23 History Hyoscyamine Sulfate [Levsin] 0.125 mg PO TID PRN 07/08/22 04/12/23 History Loratadine [Claritin] 10 mg PO DAILY PRN 07/28/22 04/12/23 History Atorvastatin [Lipitor] 40 mg PO HS 09/08/22 04/12/23 History Mirabegron [Myrbetriq] 50 mg PO HS 10/19/22 04/12/23 History Multivitamins, Thera [Multivitamin 1 tab PO HS 10/19/22 04/12/23 History (formulary)] Ferrous Sulfate [Iron (65 MG 325 mg PO BID 12/25/22 04/12/23 History Elemental)] Lactulose 20 gm PO TID PRN 12/25/22 04/12/23 History Sevelamer [Renvela] 800 mg PO W/SUPPER 12/25/22 04/12/23 History Pregabalin [Lyrica] 25 mg PO DAILY #3 cap 01/03/23 04/12/23 Rx Pregabalin [Lyrica] 50 mg PO HS #3 cap 01/03/23 04/12/23 Rx HYDROcodone/APAP 7.5-325MG [[place] 1 tab PO Q6HR PRN 03/10/23 04/12/23 History 7.5-325] Vitamin B Complex 1 cap PO W/SUPPER 03/10/23 04/12/23 History carvediloL [Coreg] 3.125 mg PO BID PRN 03/10/23 04/12/23 History Furosemide [Lasix] 80 mg PO DAILY #7 tab 03/14/23 04/12/23 Rx Aspirin 81 mg PO DAILY 03/27/23 04/12/23 History polyethylene glycoL 3350 [Miralax] 17 gm PO DAILY PRN 03/30/23 04/12/23 History Allergies Allergy/AdvReac Type Severity Reaction Status Date / Time Penicillins Allergy Anaphylaxis Verified 04/12/23 18:11 Sulfa (Sulfonamide Allergy Rash/Hives Verified 04/12/23 18:11 Antibiotics) clindamycin AdvReac c diff Verified 04/12/23 18:11 morphine AdvReac Nausea & Verified 04/12/23 18:11 Vomiting Physical Exam Vitals: Vital Signs Temp Pulse Pulse Resp BP BP Pulse Ox 04/13/23 11:35 98.0 F 80 16 119/73 100 04/13/23 07:41 98.2 F 74 16 114/72 99 04/13/23 01:23 98.2 F 78 16 92/50 94 L 04/12/23 20:36 80 18 113/45 96 04/12/23 19:00 78 20 107/39 97 04/12/23 15:50 97.7 F 87 20 108/71 100 Intake and Output 04/12/23 04/13/23 04/13/23 22:59 06:59 14:59 Other: # Voids 1 1 Weight 72 kg Results CBC & Chem 7: 04/14/23 05:56 04/14/23 05:56 Labs: Abnormal Lab Results - Last 24 Hours (Table) 04/12/23 04/12/23 04/12/23 Range/Units 16:32 16:32 16:32 RBC 3.01 L (3.80-5.40) m/uL Hgb 9.3 L (11.4-16.0) gm/dL Hct 28.5 L (34.0-46.0) % RDW 20.2 H (11.5-15.5) % Plt Count 64 L D (150-450) k/uL Sodium 136 L (137-145) mmol/L Chloride 95 L (98-107) mmol/L BUN 19 H (7-17) mg/dL Creatinine 1.61 H (0.52-1.04) mg/dL Glucose 146 H (74-99) mg/dL POC Glucose (mg/dL) (70-110) mg/dL Plasma Lactic Acid Rolly (0.7-2.0) mmol/L AST 37 H (14-36) U/L Alkaline Phosphatase 151 H (38-126) U/L Urine Appearance Turbid H (Clear) Urine Protein 1+ H (Negative) Urine Blood Large H (Negative) Ur Leukocyte Esterase Large H (Negative) Urine RBC >182 H (0-5) /hpf Urine WBC >182 H (0-5) /hpf Urine WBC Clumps Many H (None) /hpf Urine Bacteria Occasional H (None) /hpf 04/12/23 04/13/23 04/13/23 Range/Units 16:32 06:21 06:21 RBC 2.89 L (3.80-5.40) m/uL Hgb 9.0 L (11.4-16.0) gm/dL Hct 27.7 L (34.0-46.0) % RDW 20.1 H (11.5-15.5) % Plt Count 68 L (150-450) k/uL Sodium (137-145) mmol/L Chloride 96 L (98-107) mmol/L BUN 29 H (7-17) mg/dL Creatinine 2.20 H (0.52-1.04) mg/dL Glucose (74-99) mg/dL POC Glucose (mg/dL) (70-110) mg/dL Plasma Lactic Acid Rolly 2.6 H* (0.7-2.0) mmol/L AST (14-36) U/L Alkaline Phosphatase (38-126) U/L Urine Appearance (Clear) Urine Protein (Negative) Urine Blood (Negative) Ur Leukocyte Esterase (Negative) Urine RBC (0-5) /hpf Urine WBC (0-5) /hpf Urine WBC Clumps (None) /hpf Urine Bacteria (None) /hpf 04/13/23 Range/Units 11:37 RBC (3.80-5.40) m/uL Hgb (11.4-16.0) gm/dL Hct (34.0-46.0) % RDW (11.5-15.5) % Plt Count (150-450) k/uL Sodium (137-145) mmol/L Chloride (98-107) mmol/L BUN (7-17) mg/dL Creatinine (0.52-1.04) mg/dL Glucose (74-99) mg/dL POC Glucose (mg/dL) 131 H (70-110) mg/dL Plasma Lactic Acid Rolly (0.7-2.0) mmol/L AST (14-36) U/L Alkaline Phosphatase (38-126) U/L Urine Appearance (Clear) Urine Protein (Negative) Urine Blood (Negative) Ur Leukocyte Esterase (Negative) Urine RBC (0-5) /hpf Urine WBC (0-5) /hpf Urine WBC Clumps (None) /hpf Urine Bacteria (None) /hpf Assessment and Plan Plan: 1patient with a history of recurrent urinary tract infection in this patient have grown multiple pathogen from her urine culture in the recent past on 03/25 she grew VRE that was treated with Zyvox, however repeat culture on 04/01/2023 is growing Klebsiella and Pseudomonas aeruginosa presented to hospital with generalized not feeling well from burning of urine and did have a positive UA concerning for a symptomatic UTI 2-patient to continue with cefepime while waiting for the culture done this admission and finalize 3-because of recurrent UTI we will check ultrasound kidney and bladder to make sure no evidence of any structural abnormality We will follow on clinical condition and cultures to further adjust medication if needed Thank you for this consultation we will follow the patient along with you Dictation was produced using [employer] dictation software. please excuse any grammatical, word or spelling errors. Time with Patient: Greater than 30
[2023-04-14 01:42] LABS: Glucose,Whole Blood 112 mg/dL (70-110)
[2023-04-14] MEDS: HYDROcodone/APAP 7.5-325MG 1 EACH TAB PO PRN ×3 (04:36→21:13)
[2023-04-14] MEDS: LEVOTHYROXINE 88 MCG TAB PO SCH (05:31)
[2023-04-14 07:19] LABS: Glucose,Whole Blood 97 mg/dL (70-110)
[2023-04-14] MEDS: PANTOPRAZOLE 40 MG TABLET PO SCH (08:09)
[2023-04-14] MEDS: PREGABALIN 25 MG CAP PO SCH (08:09)
[2023-04-14] MEDS: FERROUS SULFATE 325 MG TAB PO SCH ×2 (08:09→20:31)
[2023-04-14] MEDS: FUROSEMIDE 80 MG TAB PO SCH (08:09)
[2023-04-14] MEDS: ASPIRIN 81 MG PO SCH (08:09)
[2023-04-14 08:31] LABS: % Iron Saturation 14.35 (12.00-45.00)
[2023-04-14 08:49] LABS: HCT 25.5 % (37.2-46.3); MCH 29.9 pg (27.0-32.0); MCHC 31.4 g/dL (32.0-37.0); MCV 95.1 FL (80.0-97.0); Mean Platelet Volume 12.8 FL (9.5-12.2); NRBC Per 100 WBC 0 X 10*3/uL (0.00-0.01); Platelet Count 89 X 10*3/uL (140-440); RBC 2.68 X 10*6/uL (4.10-5.20); WBC 4.51 X 10*3/uL (4.50-10.00)
[2023-04-14 08:58] LABS: BUN/Creat Ratio 11.56 Ratio (12.00-20.00); Carbon Dioxide 25.3 mmol/L (21.6-31.8); Chloride 101 mmol/L (96-109); Glucose 101 mg/dL (70-110); Magnesium 1.7 mg/dL (1.5-2.4); Potassium 3.7 mmol/L (3.5-5.5); Sodium 140 mmol/L (135-145)
--- NOTE | 2023-04-14 11:13 | P.PN ---
Subjective Patient is seen in follow-up for end-stage renal disease. She is maintained on hemodialysis on Thursday and Thursday schedule. Denies chest pain or shortness of breath. No active complaints. Vital signs are stable. General: No acute distress. HEENT: Head exam is unremarkable. LUNGS: No audible rhonchi or wheezes. HEART: Rate and Rhythm are regular. ABDOMEN: Non-tender. EXTREMITITES: No edema. Objective - Vital Signs Vital signs: Vital Signs Temp 97.6 F 04/14/23 07:56 Pulse 76 04/14/23 07:56 Resp 17 04/14/23 07:56 BP 118/51 04/14/23 07:56 Pulse Ox 99 04/14/23 07:56 FiO2 Intake & Output 04/13/23 04/14/23 04/14/23 18:59 06:59 18:59 Other: # Voids 1 2 - Labs CBC & Chem 7: 04/14/23 05:56 04/14/23 05:56 Labs: Abnormal Lab Results - Last 24 Hours (Table) 04/13/23 04/13/23 04/13/23 Range/Units 06:21 11:37 17:31 RBC (4.10-5.20) X 10*6/uL Hgb (12.0-15.0) g/dL Hct (37.2-46.3) % MCHC (32.0-37.0) g/dL RDW (11.5-14.5) % Plt Count (140-440) X 10*3/uL MPV (9.5-12.2) FL Anion Gap (4.00-12.00) mmol/L BUN (9.0-27.0) mg/dL Creatinine (0.6-1.5) mg/dL Est GFR (CKD-EPI) (>=60) BUN/Creatinine Ratio (12.00-20.00) Ratio POC Glucose (mg/dL) 131 H 143 H (70-110) mg/dL Iron 34 L (50-170) UG/DL Transferrin 169.0 L (204.0-354.0) mg/dL Ferritin 1254.0 H (10.0-291.0) ng/mL 04/13/23 04/14/23 04/14/23 Range/Units 20:10 01:40 05:56 RBC 2.68 L (4.10-5.20) X 10*6/uL Hgb 8.0 L (12.0-15.0) g/dL Hct 25.5 L (37.2-46.3) % MCHC 31.4 L (32.0-37.0) g/dL RDW 21.0 H (11.5-14.5) % Plt Count 89 L (140-440) X 10*3/uL MPV 12.8 H (9.5-12.2) FL Anion Gap (4.00-12.00) mmol/L BUN (9.0-27.0) mg/dL Creatinine (0.6-1.5) mg/dL Est GFR (CKD-EPI) (>=60) BUN/Creatinine Ratio (12.00-20.00) Ratio POC Glucose (mg/dL) 134 H 112 H (70-110) mg/dL Iron (50-170) UG/DL Transferrin (204.0-354.0) mg/dL Ferritin (10.0-291.0) ng/mL 04/14/23 Range/Units 05:56 RBC (4.10-5.20) X 10*6/uL Hgb (12.0-15.0) g/dL Hct (37.2-46.3) % MCHC (32.0-37.0) g/dL RDW (11.5-14.5) % Plt Count (140-440) X 10*3/uL MPV (9.5-12.2) FL Anion Gap 13.70 H (4.00-12.00) mmol/L BUN 37.0 H (9.0-27.0) mg/dL Creatinine 3.2 H (0.6-1.5) mg/dL Est GFR (CKD-EPI) 14 L (>=60) BUN/Creatinine Ratio 11.56 L (12.00-20.00) Ratio POC Glucose (mg/dL) (70-110) mg/dL Iron (50-170) UG/DL Transferrin (204.0-354.0) mg/dL Ferritin (10.0-291.0) ng/mL Microbiology - Last 24 Hours (Table) 04/12/23 19:00 Blood Culture - Preliminary Blood 04/12/23 16:32 Urine Culture - Preliminary Urine,Voided Gram Neg Bacilli Assessment and Plan Plan: Assessment: 1. End-stage renal disease may continue on hemodialysis on Thursday schedule. Patient has permacath and also AV graft. Recently started usin g the AV graft. 2. Recurrent urinary tract infections. On antibiotics per infectious disease. Urine culture positive for gram-negative bacilli. 3. Chronic right hydronephrosis with right ureteral stent last exchanged February 2023. 4. Anemia of chronic kidney disease. High ferritin noted. 5. Chronic kidney disease mineral bone disease maintained on Renvela. Phosphorus level III.0 dated 04/13/2023. 6. Left lower quadrant mobile mass. CAT scan showed no findings. Ultrasound showed hypoechoic structure, possibly cystic versus hematoma. Defer management to primary team. Plan: Hemodialysis Thursday. Add Aranesp. Follow-up cultures. Antibiotics per infectious disease.
[2023-04-14] MEDS ORDERED: DARBEPOETIN ALFA 40 MCG/0.4 ML SYRINGE SQ SCH (11:15)
[2023-04-14 11:18] LABS: Glucose,Whole Blood 105 mg/dL (70-110)
[2023-04-14] MEDS ORDERED: CEFEPIME 1 GM in SODIUM CHLORIDE 0.9% 50 ML IVPB SCH (12:00)
--- NOTE | 2023-04-14 15:15 | P.PN ---
Subjective Progress Note Date: 04/14/23 Hospital course: Patient is a very pleasant 83-year-old female with a past medical history of recurrent multidrug resistant UTIs following infectious disease, ESRD on dialysis Mondays/Wednesdays/Fridays, hypertension, hyperlipidemia, chronic systolic heart failure with previously known EF of 40-45%, bioprosthetic aortic valve replacement, hypothyroidism, iron deficiency anemia, diet controlled diabetes mellitus, left bundle-branch block, and GERD. She presented to the emergency department with a chief complaint of abdominal pain and concern for UTI. Patient reports recently completing extended course of Linezolid on 04/09/23 secondary to VRE UTI and is currently no longer on any antibiotics. Patient underwent full evaluation in the emergency department. Vital signs upon arrival show blood pressure 108/71, heart rate 87, respiratory rate 20, temp 97.7F, and SpO2 100% on room air. Labs completed and reviewed. CBC showing normocytic anemia with hemoglobin of 9.3 which is above patient's baseline hemoglobin and acute thrombocytopenia with platelet count of 64. BMP showing elevated renal function as expected with patient's ESRD with BUN of 19, creatinine 1.61, and GFR of 30. Initial lactate was 2.6 and liver profile showing elevated AST of 37 and alkaline phosphatase 151. Urinalysis was concerning for infection with turbid appearance, blood, leukocytes, greater than 182 RBCs and greater than 182 WBCs. EKG was completed showing normal sinus rhythm at 78 bpm with left bundle branch block (left bundle-branch is a chronic and previously known finding). Patient was started on cefepime based upon most recent urine culture and sensitivity report obtained 04/09/23 positive for pseudomonas aeruginosa and Klebsiella oxytoca. Patient admitted under our servi lubna with consultation to infectious disease for recurrent multidrug resistant UTI and nephrology for management of dialysis. Physical exam: Patient seen and fully evaluated at bedside this morning. She is resting comfortably and currently denies having any pain or complaints. Vital signs reviewed and stable. General: Nontoxic, no distress and appears stated age. Derm: Skin warm and dry, normal coloration for ethnicity. Head: Atraumatic, normocephalic and symmetric. Eyes: EOMs intact, no lid lag, and anicteric sclera Mouth: no lip lesions, mucus membranes moist Cardiovascular: regular rate and rhythm with normal S1S2, systolic murmur, posit riley posterior tibial pulses bilaterally, and cap refill < 2 seconds. Tunnel di alysis catheter right anterior chest with no surrounding erythema or drainage and dressing is clean, dry, and intact.. AV fistula left upper extremity, bruit and thrill intact. Lungs: Respirations even, regular, and unlabored on room air. Lungs CTA bilaterally, no rhonchi, no rales, no wheezing, and no accessory muscle usage. Abdominal: soft, slight tenderness upon palpation to suprapubic region and palpable mass noted to left lower quadrant approximately the size of a golf ball. Ext: ROM intact. No gross muscle atrophy, no edema, no contractures Neuro: Speech clear, face symmetrical and CN II-XII grossly intact with no noted focal neuro deficits Psych: Alert and oriented to person, place, time, and situation. Appropriate and pleasant affect. Assessment and Plan of Care: Recurrent multidrug resistant UTIs Lactic acidosis, resolved -Upon review of chart recent urine culture obtained 04/09/23 was positive for pseudomonas aeruginosa and Klebsiella oxytoca. Patient to continue with cefepime 1 g daily (secondary to ESRD and renal dosing for patient on dialysis). -Infectious disease following, reviewed documentation in chart, and agreement with cefepime 1 g daily pending further results. -Continue close intake and output. -Bladder scan to monitor for urinary retention. -Preliminary urine culture resulting positive for gram-negative bacilli awaiting final culture and sensitivity report -Blood cultures showing no growth to date. -Symptomatic care and pain management. Palpable abdominal mass left lower quadrant -Abdominal ultrasound completed showing complex hypoechoic structure, may be partially cystic, correlate for abscess vs hematoma. -Consult placed to general surgery for further evaluation, appreciate prakash mmendations. ESRD on dialysis Mondays/Wednesdays/Fridays Bicytopenia with anemia and thrombocytopenia, likely resulting from ESRD -Consult placed to nephrology for management of dialysis. -Patient started on Aranesp 40 g subcu every 7 days -Continue daily medication regimen with ferrous sulfate 325 mg twice daily. -Telemetry monitoring. Chronic systolic heart failure with previously known EF of 40-45% History of bioprosthetic aortic valve replacement Hypertension Hyperlipidemia Left bundle-branch block -Reviewed most recent echocardiogram completed 03/11/23 showing an impaired EF of 40-45%. -Continue Telemetry monitoring -Continue cardiac medication regimen with aspirin 81 mg daily, atorvastatin 40 mg daily, carvedilol 3.125 mg twice daily as needed for systolic pressure greater than 150, and Lasix 80 mg daily. Peripheral neuropathy -Continue daily medication regimen with Lyrica 25 mg daily Pressure ulcer to coccyx, present upon arrival -Continue to perform wound care applying barrier cream and Mepilex as well as orders to turn patient every 2 hours to offload pressure from coccyx. Data reviewed: Preliminary urine culture resulting positive for gram-negative bacilli awaiting final culture and sensitivity report Blood cultures showing no growth to date. Labs completed and reviewed. CBC revealing persistent bicytopenia with hemoglobin of 8.0 and platelet count of 89. BMP revealing elevated renal function consistent with ESRD with BUN of 37.0, creatinine 3.2, and GFR 14. Patient is scheduled to undergo dialysis tomorrow morning. Magnesium was slightly low at 1.7 and orders placed for replacement with 2 g magnesium sulfate IVPB. Vital signs reviewed and stable. Blood pressure 118/51, heart rate 76, respiratory rate 17, temp 97.6F, and SpO2 of 99% on room air. Abdominal ultrasound completed showing complex hypoechoic structure, may be partially cystic, correlate for abscess vs hematoma. CODE STATUS: DO NOT RESUSCITATE/DO NOT INTUBATE DVT prophylaxis: SCDs Anticipated discharge date: Clinical course to determine, likely 48-[address]: Home Patient was seen independently by Nurse Pracitioner. This document was prepared using [employer] dictation software. Please allow for errors in child care teacher, while rare they do occur. Kevin Carmona NP rendered care for this patient independently, reviewed the findings and plan as documented in the note above. I did not physically speak with or examine the patient on this date. Objective - Vital Signs Vital signs: Vital Signs Temp 97.6 F 04/14/23 07:56 Pulse 76 04/14/23 07:56 Resp 17 04/14/23 07:56 BP 118/51 04/14/23 07:56 Pulse Ox 99 04/14/23 07:56 FiO2 Intake & Output 04/13/23 04/14/23 04/14/23 18:59 06:59 18:59 Other: # Voids 1 2 - Labs CBC & Chem 7: 04/14/23 05:56 04/14/23 05:56 Labs: Abnormal Lab Results - Last 24 Hours (Table) 04/13/23 04/13/23 04/13/23 Range/Units 06:21 11:37 17:31 POC Glucose (mg/dL) 131 H 143 H (70-110) mg/dL Iron 34 L (50-170) UG/DL Transferrin 169.0 L (204.0-354.0) mg/dL Ferritin 1254.0 H (10.0-291.0) ng/mL 04/13/23 04/14/23 Range/Units 20:10 01:40 POC Glucose (mg/dL) 134 H 112 H (70-110) mg/dL Iron (50-170) UG/DL Transferrin (204.0-354.0) mg/dL Ferritin (10.0-291.0) ng/mL Microbiology - Last 24 Hours (Table) 04/12/23 19:00 Blood Culture - Preliminary Blood 04/12/23 16:32 Urine Culture - Preliminary Urine,Voided Gram Neg Bacilli
[2023-04-14] MEDS: MAGNESIUM SULFATE-D5W PMX 1 GM in DEXTROSE/WATER 1 100ML.BAG IVPB SCH ×2 (15:23→16:34)
[2023-04-14] MEDS: SEVELAMER 800 MG TAB PO SCH (17:39)
[2023-04-14 17:41] LABS: Glucose,Whole Blood 109 mg/dL (70-110)
[2023-04-14] MEDS: SODIUM CHLORIDE 0.9% 1,000 ML IV SCH (17:43)
[2023-04-14 20:15] LABS: Glucose,Whole Blood 111 mg/dL (70-110)
[2023-04-14] MEDS: MULTIVITAMINS, THERA 1 EACH TAB PO SCH (20:31)
[2023-04-14] MEDS: ATORVASTATIN 40 MG TAB PO SCH (20:31)
[2023-04-14] MEDS: PREGABALIN 50 MG CAP PO SCH (20:31)
[2023-04-14] MEDS: TAMSULOSIN 0.4 MG CAP.ER.24H PO SCH (20:31)
[2023-04-14] MEDS: NON FORMULARY DRUG (Mirabegron [Myrbetriq] 50 MG Tab.Er.24h) PO SCH (20:32)
[2023-04-15] MEDS: LEVOTHYROXINE 88 MCG TAB PO SCH (04:07)
[2023-04-15] MEDS: HYDROcodone/APAP 7.5-325MG 1 EACH TAB PO PRN ×3 (04:07→17:11)
[2023-04-15 07:54] LABS: Glucose,Whole Blood 92 mg/dL (70-110)
[2023-04-15] MEDS: PREGABALIN 25 MG CAP PO SCH (08:24)
[2023-04-15] MEDS: PANTOPRAZOLE 40 MG TABLET PO SCH (08:24)
[2023-04-15] MEDS: FUROSEMIDE 80 MG TAB PO SCH (08:24)
[2023-04-15] MEDS: ASPIRIN 81 MG PO SCH (08:24)
[2023-04-15] MEDS: FERROUS SULFATE 325 MG TAB PO SCH ×2 (08:24→20:23)
--- NOTE | 2023-04-15 10:35 | P.PN ---
Subjective Patient is seen in follow-up for end-stage renal disease. She is maintained on hemodialysis on Thursday and Thursday schedule. Denies chest pain or shortness of breath. No active complaints. Concerned about reaction to antibiotics. Vital signs are stable. General: No acute distress. HEENT: Head exam is unremarkable. LUNGS: No audible rhonchi or wheezes. HEART: Rate and Rhythm are regular. ABDOMEN: Non-tender. EXTREMITITES: No edema. Objective - Vital Signs Vital signs: Vital Signs Temp 97.5 F L 04/15/23 07:56 Pulse 71 04/15/23 07:56 Resp 18 04/15/23 07:56 BP 109/53 04/15/23 07:56 Pulse Ox 96 04/15/23 07:56 FiO2 Intake & Output 04/14/23 04/15/23 04/15/23 18:59 06:59 18:59 Intake Total 120 Balance 120 Intake: Oral 120 Other: # Voids 4 1 - Labs CBC & Chem 7: 04/14/23 05:56 04/14/23 05:56 Labs: Abnormal Lab Results - Last 24 Hours (Table) 04/14/23 Range/Units 20:13 POC Glucose (mg/dL) 111 H (70-110) mg/dL Microbiology - Last 24 Hours (Table) 04/12/23 19:00 Blood Culture - Preliminary Blood 04/12/23 16:32 Urine Culture - Final Urine,Voided Klebsiella oxytoca 04/12/23 18:30 Blood Culture - Preliminary Blood Assessment and Plan Plan: Assessment: 1. End-stage renal disease may continue on hemodialysis on Thursday schedule. Patient has permacath and also AV graft. Recently started using the AV graft. 2. Recurrent urinary tract infections. On antibiotics per infectious disease. Urine culture positive for Klebsiella. 3. Chronic right hydronephrosis with right ureteral stent last exchanged February 2023. 4. Anemia of chronic kidney disease. High ferritin noted. On Aranesp. 5. Chronic kidney disease mineral bone disease maintained on Renvela. Phosphorus level 3.0 dated 04/13/2023. 6. Left lower quadrant mobile mass. CAT scan showed no findings. Ultrasound showed hypoechoic structure, possibly cystic versus hematoma. Defer management to primary team. Surgery consulted. Plan: Hemodialysis today.
--- NOTE | 2023-04-15 11:15 | P.PN ---
Subjective Progress Note Date: 04/14/23 Principal diagnosis: Reason for follow-up is recurrent UTI Patient is a 83-year-old female with a past medical history significant for hypertension hyperlipidemia end-stage renal disease on dialysis Thursday through the right chest wall permacatheter patient also have a functioning left upper extremity AV fistula patient still makes urine and did have a history of recurrent UTI with recent outpatient culture positive for Klebsiella and Pseudomonas. On today's evaluation that is 04/14/2023, the patient remains to be afebrile the patient is breathing comfortably on room air , the patient denies any chest pain shortness of breath denies any cough or sputum production, the patient denies having any nausea no vomiting no abdominal pain, patient reported last night while infusion of cefepime she become really painful have tingling sensation in the mouth and is refusing cefepime at this point Patient did have white count of 4.51, creatinine 3.2 urine showing gram-negative bacilli Objective - Vital Signs Vital signs: Vital Signs Temp 97.7 F 04/14/23 11:50 Pulse 72 04/14/23 11:50 Resp 16 04/14/23 11:50 BP 138/66 04/14/23 11:50 Pulse Ox 95 04/14/23 11:50 FiO2 Intake & Output 04/13/23 04/14/23 04/14/23 18:59 06:59 18:59 Other: # Voids 1 2 - Exam GENERAL DESCRIPTION: An elderly female up in the chair in no distress RESPIRATORY SYSTEM: Unlabored breathing , decreased breath sounds at bases HEART: S1 S2 regular rate and rhythm , ABDOMEN: Soft , no tenderness EXTREMITIES: No edema feet - Labs CBC & Chem 7: 04/14/23 05:56 04/14/23 05:56 Labs: Abnormal Lab Results - Last 24 Hours (Table) 04/13/23 04/13/23 04/13/23 Range/Units 06:21 17:31 20:10 RBC (4.10-5.20) X 10*6/uL Hgb (12.0-15.0) g/dL Hct (37.2-46.3) % MCHC (32.0-37.0) g/dL RDW (11.5-14.5) % Plt Count (140-440) X 10*3/uL MPV (9.5-12.2) FL Anion Gap (4.00-12.00) mmol/L BUN (9.0-27.0) mg/dL Creatinine (0.6-1.5) mg/dL Est GFR (CKD-EPI) (>=60) BUN/Creatinine Ratio (12.00-20.00) Ratio POC Glucose (mg/dL) 143 H 134 H (70-110) mg/dL Iron 34 L (50-170) UG/DL Transferrin 169.0 L (204.0-354.0) mg/dL Ferritin 1254.0 H (10.0-291.0) ng/mL 04/14/23 04/14/23 04/14/23 Range/Units 01:40 05:56 05:56 RBC 2.68 L (4.10-5.20) X 10*6/uL Hgb 8.0 L (12.0-15.0) g/dL Hct 25.5 L (37.2-46.3) % MCHC 31.4 L (32.0-37.0) g/dL RDW 21.0 H (11.5-14.5) % Plt Count 89 L (140-440) X 10*3/uL MPV 12.8 H (9.5-12.2) FL Anion Gap 13.70 H (4.00-12.00) mmol/L BUN 37.0 H (9.0-27.0) mg/dL Creatinine 3.2 H (0.6-1.5) mg/dL Est GFR (CKD-EPI) 14 L (>=60) BUN/Creatinine Ratio 11.56 L (12.00-20.00) Ratio POC Glucose (mg/dL) 112 H (70-110) mg/dL Iron (50-170) UG/DL Transferrin (204.0-354.0) mg/dL Ferritin (10.0-291.0) ng/mL Microbiology - Last 24 Hours (Table) 04/12/23 18:30 Blood Culture - Preliminary Blood 04/12/23 19:00 Blood Culture - Preliminary Blood 04/12/23 16:32 Urine Culture - Preliminary Urine,Voided Gram Neg Bacilli Assessment and Plan (1) Allergy to multiple antibiotics Current Visit: Yes Status: Acute Code(s): Z88.1 - ALLERGY STATUS TO OTHER ANTIBIOTIC AGENTS SNOMED Code(s): 006830354 (2) Urinary tract infection Current Visit: Yes Status: Acute Code(s): N39.0 - URINARY TRACT INFECTION, SITE NOT SPECIFIED SNOMED Code(s): 39011255 Plan: 1patient with a history of recurrent urinary tract infection in this patient have grown multiple pathogen from her urine culture in the recent past on she grew VRE that was treated with Zyvox, however repeat culture on 04/01/2023 is growing Klebsiella and Pseudomonas aeruginosa presented to hospital with generalized not feeling well from burning of urine and did have a positive UA concerning for a symptomatic UTI 2patient urine is currently growing gram-negative patient is refusing cefepime clinical doubt she did have a true allergic reaction we will try Benjamin and see response Dictation was produced using [employer] dictation software. please excuse any grammatical, word or spelling errors.
--- NOTE | 2023-04-15 11:49 | P.PN ---
Subjective Progress Note Date: 04/15/23 Principal diagnosis: Reason for follow-up is recurrent UTI Patient is a 83-year-old female with a past medical history significant for hypertension hyperlipidemia end-stage renal disease on dialysis Thursday through the right chest wall permacatheter patient also have a functioning left upper extremity AV fistula patient still makes urine and did have a history of recurrent UTI with recent outpatient culture positive for Klebsiella and Pseudomonas. On today's evaluation that is 04/15/2022, the patient continues to be afebrile, the patient is breathing comfortably on room air denies any chest pain shortness of breath or cough no abdominal pain patient mention her urinary burning has improved and the patient tolerated Fortaz yesterday without any problem. No lab draw today urine culture finalized with Klebsiella that is sensitive to ceftriaxone Objective - Vital Signs Vital signs: Vital Signs Temp 97.5 F L 04/15/23 07:56 Pulse 71 04/15/23 07:56 Resp 18 04/15/23 07:56 BP 109/53 04/15/23 07:56 Pulse Ox 96 04/15/23 07:56 FiO2 Intake & Output 04/14/23 04/15/23 04/15/23 18:59 06:59 18:59 Intake Total 120 Balance 120 Intake: Oral 120 Other: # Voids 4 1 - Exam GENERAL DESCRIPTION: An elderly female up in the chair in no distress RESPIRATORY SYSTEM: Unlabored breathing , decreased breath sounds at bases HEART: S1 S2 regular rate and rhythm , ABDOMEN: Soft , no tenderness EXTREMITIES: No edema feet - Labs CBC & Chem 7: 04/14/23 05:56 04/14/23 05:56 Labs: Abnormal Lab Results - Last 24 Hours (Table) 04/14/23 Range/Units 20:13 POC Glucose (mg/dL) 111 H (70-110) mg/dL Microbiology - Last 24 Hours (Table) 04/12/23 19:00 Blood Culture - Preliminary Blood 04/12/23 16:32 Urine Culture - Final Urine,Voided Klebsiella oxytoca 04/12/23 18:30 Blood Culture - Preliminary Blood Assessment and Plan (1) Allergy to multiple antibiotics Current Visit: Yes Status: Acute Code(s): Z88.1 - ALLERGY STATUS TO OTHER ANTIBIOTIC AGENTS SNOMED Code(s): 099620771 (2) Urinary tract infection Current Visit: Yes Status: Acute Code(s): N39.0 - URINARY TRACT INFECTION, SITE NOT SPECIFIED SNOMED Code(s): 60468410 Plan: 1patient with a history of recurrent urinary tract infection in this patient have grown multiple pathogen from her urine culture in the recent past on 03/25/2023 she grew VRE that was treated with Zyvox, however repeat culture on 04/01/2023 is growing Klebsiella and Pseudomonas aeruginosa presented to hospital with generalized not feeling well from burning of urine and did have a positive UA concerning for a symptomatic UTI 2the patient has been finalized with Klebsiella that is sensitive pathogen,Patient is on Fortaz and can be transitioned to oral Ceftin for short course on discharge this was discussed with admitting team Dictation was produced using [employer] dictation software. please excuse any grammatical, word or spelling errors. Time with Patient: Less than 30
[2023-04-15 13:03] LABS: Glucose,Whole Blood 89 mg/dL (70-110)
--- NOTE | 2023-04-15 13:10 | P.PN ---
Subjective Progress Note Date: 04/15/23 Patient is a very pleasant 83-year-old female with a past medical history of recurrent multidrug resistant UTIs following infectious disease, ESRD on dialysis Mondays/Wednesdays/Fridays, hypertension, hyperlipidemia, chronic systolic heart failure with previously known EF of 40-45%, bioprosthetic aortic valve replacement, hypothyroidism, iron deficiency anemia, diet controlled diabetes mellitus, left bundle-branch block, and GERD. She presented to the emergency department with a chief complaint of abdominal pain and concern for UTI. Patient reports recently completing extended course of Linezolid on 04/09/23 secondary to VRE UTI and is currently no longer on any antibiotics. Patient underwent full evaluation in the emergency department. Vital signs upon arrival show blood pressure 108/71, heart rate 87, respiratory rate 20, temp 97.7F, and SpO2 100% on room air. CBC showing normocytic anemia with hemoglobin of 9.3 which is above patient's baseline hemoglobin and acute thrombocytopenia with platelet count of 64. BMP showing elevated renal function as expected with patient's ESRD with BUN of 19, creatinine 1.61, and GFR of 30. Initial lactate was 2.6. Liver profile showing elevated AST of 37 and alkaline phosphatase 151. Urinalysis was concerning for infection with turbid appearance, blood, leukocytes, greater than 182 RBCs and greater than 182 WBCs. EKG was completed showing normal sinus rhythm at 78 bpm with left bundle branch block (left bundle-branch is a chronic and previously known finding). Patient was started on cefepime based upon most recent urine culture and sensitivity report obtained 04/09/23 positive for pseudomonas aeruginosa and Klebsiella oxytoca. Patient admitted under our services with consultation to infectious disease for recurrent multidrug resistant UTI and nephrology for management of dialysis. Urine culture + Klebsiella oxytoca. 04/15 Patient was seen and examined. She reports unstable gait. PT and OT eval pending. Discussed with case management. Vital signs reviewed and stable. General: Nontoxic, no distress and appears stated age. Derm: Skin warm and dry Head: Atraumatic, normocephalic and symmetric. Eyes: EOMs intact, no lid lag, and anicteric sclera Cardiovascular: Normal S1S2, systolic murmur. Tunnel dialysis catheter right anterior chest with no surrounding erythema or drainage and dressing is clean, dry, and intact.. AV fistula left upper extremity, bruit and thrill intact. Lungs: Lungs CTA bilaterally, no rhonchi, no rales, no wheezing, and no accessory muscle usage. Abdominal: soft, slight tenderness upon palpation to suprapubic region and palpable mass noted to left lower quadrant approximately the size of a golf ball. Ext: ROM intact. No gross muscle atrophy, no edema, no contractures Neuro: Speech clear, face symmetrical Psych: Alert and oriented to person, place, time, and situation. Appropriate and pleasant affect. Based on my assessment of this patient, this patient meets a high complexity level of care. Patient has an acute diagnosis of UTI that poses a threat to life or bodily function. Recurrent multidrug resistant UTIs: UCx Klebsiella oxytoca. Discussed with Dr. García, continue Ceftazidime 1g IV QD, Ceftin 250 mg PO BID x 7 days on discharge. LUQ mass: Surgery consult. ESRD on dialysis Mondays/Wednesdays/Fridays: Nephrology consult. Bicytopenia with anemia and thrombocytopenia, likely resulting from ESRD: Ferrous sulfate 325 mg twice daily. Aranesp 40 g subcu every 7 days Chronic systolic heart failure with previously known EF of 40-45%: Beta camden and Lasix as below. History of bioprosthetic aortic valve replacement Hypertension: Coreg 3.125 mg PO BID. Lasix 80 mg PO QD. Hyperlipidemia: ASA 81 mg PO QD. Lipitor 40 mg PO QD. Left bundle-branch block Peripheral neuropathy: Lyrica 25 mg daily. Pressure ulcer to coccyx, present upon arrival Resolved: Lactic acidosis CODE STATUS: NO CODE DVT Prophylaxis: Heparin SQ GI Prophylaxis: Protonix Designated medical POA if patient is not able to make medical decisions for themselves: I have reviewed the following cisco consultant notes: ID, Nephrology I have reviewed the results of the following tests: I have ordered the following tests: I have discussed the care of this patient with the following independent historian: I have independently interpreted the following test below: I have discussed the management of this patient with the following physician: Objective - Vital Signs Vital signs: Vital Signs Temp 97.5 F L 04/15/23 07:56 Pulse 71 04/15/23 07:56 Resp 18 04/15/23 07:56 BP 109/53 04/15/23 07:56 Pulse Ox 96 04/15/23 07:56 FiO2 Intake & Output 04/14/23 04/15/23 04/15/23 18:59 06:59 18:59 Intake Total 120 Balance 120 Intake: Oral 120 Other: # Voids 4 1 - Labs CBC & Chem 7: 04/14/23 05:56 04/14/23 05:56 Labs: Abnormal Lab Results - Last 24 Hours (Table) 04/14/23 Range/Units 20:13 POC Glucose (mg/dL) 111 H (70-110) mg/dL Microbiology - Last 24 Hours (Table) 04/12/23 18:30 Blood Culture - Preliminary Blood 04/12/23 19:00 Blood Culture - Preliminary Blood 04/12/23 16:32 Urine Culture - Final Urine,Voided Klebsiella oxytoca
--- NOTE | 2023-04-15 13:53 | P.GSCN ---
History of Present Illness Consult date: 04/15/23 History of present illness: CHIEF COMPLAINT: Abdominal pain HISTORY OF PRESENT ILLNESS: This 83-year-old female who presented to the hospital with complaints of abdominal pain and evidence of a UTI. She is followed closely by infectious disease. Surgical service consulted regarding a possible abdominal abscess versus hematoma. Patient has a bump in the left lower quadrant of the abdomen that has been present for about 3 weeks. Patient reports that it has decreased in size. It's nontender. She believes that she has received heparin injections to that site. Abdominal ultrasound reported complex hypoechoic structure may be partially cystic. Correlate for abscess. Hematoma could be considered with the differential. Patient denies any injury to the area. She denies being on any oral blood thinners. PAST MEDICAL HISTORY: End-stage renal disease on hemodialysis, hyperlipidemia, hypertension, hypothyroidism and recurrent UTIs, diabetes diet controlled PAST SURGICAL HISTORY: See below MEDICATIONS: See below ALLERGIES: See below SOCIAL HISTORY: No illicit drug use. REVIEW OF SYSTEMS: CONSTITUTIONAL: Denies fever or chills. HEENT: Denies blurred vision, vision changes, or eye pain. Denies hemoptysis CARDIOVASCULAR: Denies chest pain or pressure. RESPIRATORY: No shortness of breath. GASTROINTESTINAL: See HPI for pertinent findings HEMATOLOGIC: Denies bleeding disorders. GENITOURINARY: Denies any blood in urine or increased urinary frequency. SKIN: Denies pruitis. Denies rash. PHYSICAL EXAM: VITAL SIGNS: Reviewed GENERAL: Well-developed in no acute distress. ABDOMEN: Soft nontender nondistended. Left lower quadrant small palpable area of induration. Nontender. NEUROLOGIC: Alert and oriented. Cranial nerves II through XII grossly intact. LABORATORY DATA: WBC 4.5 Hgb 8.0 platelets 89 Sodium 140 potassium 3.7 creatinine 3.2 IMAGING: Abdominal ultrasound complex hypoechoic structure may be partially cystic. Mike elate for abscess. Hematoma could be considered within the differential. ASSESSMENT: 1. Bump located left lower quadrant the abdomen likely due to heparin injection PLAN: -No surgical intervention planned -Patient can be discharged from surgical standpoint when medically stable Thank you for this consultation Physician Raiser Helper note has been reviewed by physician. Signing provider agrees with the documented findings, assessment, and plan of care. Past Medical History Past Medical History: Dialysis, Hyperlipidemia, Hypertension Additional Past Medical History / Comment(s): hypothyroidism, chronic back/neck pain-pain rt leg and walks with walker, mitral valve murmur, hemodialysis MWF-av access rt chest, c diff yrs ago when took clindamycin for tooth extraction,UTI,has lung nodules. has bundle block on ekgs, cystitis. controls diabetes with diet. takes carvedilol if Systolic over 150.hasnt needed,. , small open area on coccyx that she normally wears a cushion pad. History of Any Multi-Drug Resistant Organisms: VRE Year Discovered:: 03/25/23 MDRO Source:: Urine Past Surgical History: Hysterectomy, Joint Replacement Additional Past Surgical History / Comment(s): neck [id number] surgery, heart aortic valve replacement, rt ureter stent x 3, kristi knee replacements, left forearm graft for Hemodialysis, right subclavian HD cath 11/2022 Past Anesthesia/Blood Transfusion Reactions: No Reported Reaction Additional Past Anesthesia/Blood Transfusion Reaction / Comm: states "no problems with intubation but was told by Anesthesia vocal cords are anterior", no problems with prior blood transfusion. adopted Past Psychological History: No Psychological Hx Reported Smoking Status: Never smoker Past Alcohol Use History: None Reported Past Drug Use History: None Reported - Past Family History Family Family Medical History: No Reported History Additional Family Medical History / Comment(s): adopted Medications and Allergies Home Medications Medication Instructions Recorded Confirmed Type Albuterol Inhaler [Ventolin Hfa 2 puff INHALATION RT-Q4H PRN 06/19/21 04/12/23 History Inhaler] Levothyroxine Sodium [Synthroid] 88 mcg PO DAILY 06/19/21 04/12/23 History Omeprazole 40 mg PO DAILY 06/19/21 04/12/23 History Tamsulosin [Flomax] 0.4 mg PO HS 02/03/22 04/12/23 History Hyoscyamine Sulfate [Levsin] 0.125 mg PO TID PRN 07/08/22 04/12/23 History Loratadine [Claritin] 10 mg PO DAILY PRN 07/28/22 04/12/23 History Atorvastatin [Lipitor] 40 mg PO HS 09/08/22 04/12/23 History Mirabegron [Myrbetriq] 50 mg PO HS 10/19/22 04/12/23 History Multivitamins, Thera [Multivitamin 1 tab PO HS 10/19/22 04/12/23 History (formulary)] Ferrous Sulfate [Iron (65 MG 325 mg PO BID 12/25/22 04/12/23 History Elemental)] Lactulose 20 gm PO TID PRN 12/25/22 04/12/23 History Sevelamer [Renvela] 800 mg PO W/SUPPER 12/25/22 04/12/23 History Pregabalin [Lyrica] 25 mg PO DAILY #3 cap 01/03/23 04/12/23 Rx Pregabalin [Lyrica] 50 mg PO HS #3 cap 01/03/23 04/12/23 Rx HYDROcodone/APAP 7.5-325MG [[place] 1 tab PO Q6HR PRN 03/10/23 04/12/23 History 7.5-325] Vitamin B Complex 1 cap PO W/SUPPER 03/10/23 04/12/23 History carvediloL [Coreg] 3.125 mg PO BID PRN 03/10/23 04/12/23 History Furosemide [Lasix] 80 mg PO DAILY #7 tab 03/14/23 04/12/23 Rx Aspirin 81 mg PO DAILY 03/27/23 04/12/23 History polyethylene glycoL 3350 [Miralax] 17 gm PO DAILY PRN 03/30/23 04/12/23 History Allergies Allergy/AdvReac Type Severity Reaction Status Date / Time Penicillins Allergy Anaphylaxis Verified 04/12/23 18:11 Sulfa (Sulfonamide Allergy Rash/Hives Verified 04/12/23 18:11 Antibiotics) clindamycin AdvReac c diff Verified 04/12/23 18:11 morphine AdvReac Nausea & Verified 04/12/23 18:11 Vomiting Surgical - Exam Vital Signs Temp Pulse Resp BP Pulse Ox 97.7 F 87 20 108/71 100 04/12/23 15:50 04/12/23 15:50 04/12/23 15:50 04/12/23 15:50 04/12/23 15:50 Results - Labs 04/14/23 05:56 04/14/23 05:56 Abnormal Lab Results - Last 24 Hours (Table) 04/14/23 Range/Units 20:13 POC Glucose (mg/dL) 111 H (70-110) mg/dL Microbiology - Last 24 Hours (Table) 04/12/23 18:30 Blood Culture - Preliminary Blood 04/12/23 19:00 Blood Culture - Preliminary Blood 04/12/23 16:32 Urine Culture - Final Urine,Voided Klebsiella oxytoca
[2023-04-15 17:10] LABS: Glucose,Whole Blood 97 mg/dL (70-110)
[2023-04-15] MEDS: SEVELAMER 800 MG TAB PO SCH (17:11)
[2023-04-15] MEDS: SODIUM CHLORIDE 0.9% 1,000 ML IV SCH (17:17)
[2023-04-15 19:17] LABS: Glucose,Whole Blood 129 mg/dL (70-110)
[2023-04-15] MEDS: ATORVASTATIN 40 MG TAB PO SCH (20:23)
[2023-04-15] MEDS: TAMSULOSIN 0.4 MG CAP.ER.24H PO SCH (20:24)
[2023-04-15] MEDS: MULTIVITAMINS, THERA 1 EACH TAB PO SCH (20:24)
[2023-04-15] MEDS: NON FORMULARY DRUG (Mirabegron [Myrbetriq] 50 MG Tab.Er.24h) PO SCH (20:24)
[2023-04-15] MEDS: PREGABALIN 50 MG CAP PO SCH (20:24)
[2023-04-15] MEDS: HEPARIN SODIUM,PORCINE 5,000 UNIT/ML 1 ML VIAL SQ SCH (20:24)
[2023-04-16] MEDS: LEVOTHYROXINE 88 MCG TAB PO SCH (05:37)
[2023-04-16] MEDS: HYDROcodone/APAP 7.5-325MG 1 EACH TAB PO PRN ×2 (05:37→17:48)
[2023-04-16 07:55] LABS: Glucose,Whole Blood 105 mg/dL (70-110)
[2023-04-16] MEDS: FUROSEMIDE 80 MG TAB PO SCH (08:30)
[2023-04-16] MEDS: PANTOPRAZOLE 40 MG TABLET PO SCH (08:30)
[2023-04-16] MEDS: ASPIRIN 81 MG PO SCH (08:30)
[2023-04-16] MEDS: HEPARIN SODIUM,PORCINE 5,000 UNIT/ML 1 ML VIAL SQ SCH ×2 (08:30→20:39)
[2023-04-16] MEDS: FERROUS SULFATE 325 MG TAB PO SCH ×2 (08:30→20:39)
[2023-04-16] MEDS: PREGABALIN 25 MG CAP PO SCH (08:30)
[2023-04-16 09:57] LABS: African American GFR (CKD) 18 (>60 ml/min/1.73 sqM); Anion Gap 20 mmol/L; Blood Urea Nitrogen 31 mg/dL (7-17); Calcium 9.2 mg/dL (8.4-10.2); Carbon Dioxide 19 mmol/L (22-30); Chloride 95 mmol/L (98-107); Glucose 157 mg/dL (74-99); Non-African American GFR(CKD) 15 (>60 ml/min/1.73 sqM); Potassium 3.8 mmol/L (3.5-5.1); Sodium 134 mmol/L (137-145)
--- NOTE | 2023-04-16 11:31 | P.PN ---
Subjective Progress Note Date: 04/16/23 CHIEF COMPLAINT: UTI HISTORY OF PRESENT ILLNESS: Surgical service following regards to the left lower quadrant abdominal bump which is likely due to a heparin injection. Patient denies any pain. The size of the bump continues to decrease. Afebrile. PHYSICAL EXAM: VITAL SIGNS: Reviewed. GENERAL: Well-developed in no acute distress. ABDOMEN: Soft. Nondistended. Nontender. Left lower quadrant small palpable area of induration. Decreasing in size. Nontender. NEUROLOGIC: Alert and oriented. Cranial nerves II through XII grossly intact. ASSESSMENT: 1. Left lower quadrant area of induration likely due to heparin injection PLAN: -No surgical intervention planned -Patient can be discharged from surgical standpoint when medically stable Physician Mine Engineering Superintendent note has been reviewed by physician. Signing provider agrees with the documented findings, assessment, and plan of care. Objective - Vital Signs Vital signs: Vital Signs Temp 97.9 F 04/16/23 08:00 Pulse 73 04/16/23 08:00 Resp 18 04/16/23 08:00 BP 110/48 04/16/23 08:00 Pulse Ox 100 04/16/23 08:00 FiO2 Intake & Output 04/15/23 04/16/23 04/16/23 18:59 06:59 18:59 Intake Total 700 400 Output Total 1900 Balance 700 -1500 Intake: Oral 700 Hemodialysis 400 Output: Hemodialysis 1900 Other: Voiding Method Toilet # Voids 3 - Labs CBC & Chem 7: 04/14/23 05:56 04/16/23 09:20 Labs: Abnormal Lab Results - Last 24 Hours (Table) 04/15/23 04/16/23 Range/Units 19:15 09:20 Sodium 134 L (137-145) mmol/L Chloride 95 L (98-107) mmol/L Carbon Dioxide 19 L (22-30) mmol/L BUN 31 H (7-17) mg/dL Creatinine 2.78 H (0.52-1.04) mg/dL Glucose 157 H (74-99) mg/dL POC Glucose (mg/dL) 129 H (70-110) mg/dL Microbiology - Last 24 Hours (Table) 04/12/23 19:00 Blood Culture - Preliminary Blood 04/12/23 18:30 Blood Culture - Preliminary Blood
[2023-04-16 11:55] LABS: Anisocytosis Moderate; HCT 30.1 % (34.0-46.0); HGB 9.8 gm/dL (11.4-16.0); Hypochromasia Slight; MCH 31.2 pg (25.0-35.0); MCHC 32.4 g/dL (31.0-37.0); MCV 96.3 fL (80.0-100.0); Macrocytosis Slight; Mean Platelet Volume 10.9; RBC 3.13 m/uL (3.80-5.40); RDW 20.7 % (11.5-15.5); WBC 6.5 k/uL (3.8-10.6)
--- NOTE | 2023-04-16 11:58 | P.PN ---
Subjective Patient is seen in follow-up for end-stage renal disease. She is maintained on hemodialysis on Thursday and Thursday schedule. Denies chest pain or shortness of breath. No active complaints. No problems with dialysis yesterday. Vital signs stable. HEENT: Head exam is unremarkable. LUNGS: No audible rhonchi or wheezes. HEART: Rate and Rhythm are regular. ABDOMEN: Non-tender. EXTREMITITES: No edema. Objective - Vital Signs Vital signs: Vital Signs Temp 97.9 F 04/16/23 08:00 Pulse 73 04/16/23 08:00 Resp 18 04/16/23 08:00 BP 110/48 04/16/23 08:00 Pulse Ox 100 04/16/23 08:00 FiO2 Intake & Output 04/15/23 04/16/23 04/16/23 18:59 06:59 18:59 Intake Total 700 400 Output Total 1900 Balance 700 -1500 Intake: Oral 700 Hemodialysis 400 Output: Hemodialysis 1900 Other: Voiding Method Toilet # Voids 3 - Labs CBC & Chem 7: 04/14/23 05:56 04/16/23 09:20 Labs: Abnormal Lab Results - Last 24 Hours (Table) 04/15/23 04/16/23 Range/Units 19:15 09:20 Sodium 134 L (137-145) mmol/L Chloride 95 L (98-107) mmol/L Carbon Dioxide 19 L (22-30) mmol/L BUN 31 H (7-17) mg/dL Creatinine 2.78 H (0.52-1.04) mg/dL Glucose 157 H (74-99) mg/dL POC Glucose (mg/dL) 129 H (70-110) mg/dL Microbiology - Last 24 Hours (Table) 04/12/23 19:00 Blood Culture - Preliminary Blood 04/12/23 18:30 Blood Culture - Preliminary Blood Assessment and Plan Plan: Assessment: 1. End-stage renal disease may continue on hemodialysis on Thursday schedule. Patient has permacath and also AV graft. Recently started using the AV graft. 2. Recurrent urinary tract infections. On antibiotics per infectious disease. Urine culture positive for Klebsiella. 3. Chronic right hydronephrosis with right ureteral stent last exchanged February 2023. 4. Anemia of chronic kidney disease. High ferritin noted. On Aranesp. 5. Chronic kidney disease mineral bone disease maintained on Renvela. Phosphorus level 3.0 dated 04/13/2023. 6. Left lower quadrant mobile mass. CAT scan showed no findings. Ultrasound showed hypoechoic structure, possibly cystic versus hematoma. Defer management to primary team. Seen by surgery. No interventions planned. 7. Metabolic acidosis secondary to chronic kidney disease. Expect improvement postdialysis Plan: Hemodialysis tomorrow. Patient with recurrent urinary tract infections. Will consult urology to see if the ureteral stent is necessary or can be removed. Discussed with primary team.
[2023-04-16 12:05] LABS: Platelet Count 129 k/uL (150-450)
--- NOTE | 2023-04-16 12:10 | P.PN ---
Subjective Progress Note Date: 04/16/23 Patient is a very pleasant 83-year-old female with a past medical history of recurrent multidrug resistant UTIs following infectious disease, ESRD on dialysis Mondays/Wednesdays/Fridays, hypertension, hyperlipidemia, chronic systolic heart failure with previously known EF of 40-45%, bioprosthetic aortic valve replacement, hypothyroidism, iron deficiency anemia, diet controlled diabetes mellitus, left bundle-branch block, and GERD. She presented to the emergency department with a chief complaint of abdominal pain and concern for UTI. Patient reports recently completing extended course of Linezolid on 04/09/23 secondary to VRE UTI and is currently no longer on any antibiotics. Patient underwent full evaluation in the emergency department. Vital signs upon arrival show blood pressure 108/71, heart rate 87, respiratory rate 20, temp 97.7F, and SpO2 100% on room air. CBC showing normocytic anemia with hemoglobin of 9.3 which is above patient's baseline hemoglobin and acute thrombocytopenia with platelet count of 64. BMP showing elevated renal function as expected with patient's ESRD with BUN of 19, creatinine 1.61, and GFR of 30. Initial lactate was 2.6. Liver profile showing elevated AST of 37 and alkaline phosphatase 151. Urinalysis was concerning for infection with turbid appearance, blood, leukocytes, greater than 182 RBCs and greater than 182 WBCs. EKG was completed showing normal sinus rhythm at 78 bpm with left bundle branch block (left bundle-branch is a chronic and previously known finding). Patient was started on cefepime based upon most recent urine culture and sensitivity report obtained 04/09/23 positive for pseudomonas aeruginosa and Klebsiella oxytoca. Patient admitted under our services with consultation to infectious disease for recurrent multidrug resistant UTI and nephrology for management of dialysis. Urine culture + Klebsiella oxytoca. 04/15 Patient was seen and examined. She reports unstable gait. PT and OT eval pending. Discussed with case management. 04/16 Patient was seen and examined. Patient agreeable for [facility]. Discussed with Dr. Duke, plans to consult urology regarding her ureteral stent, she is ESRD on HD, possible thoughts of removing the stent. CBC Hg 9.8 Plt 129. BMP Na 134, Cl 95, bicarb 19, BUN 31, Cr 2.78, glu 157. Vital signs reviewed and stable. General: Nontoxic, no distress and appears stated age. Derm: Skin warm and dry Head: Atraumatic, normocephalic and symmetric. Eyes: EOMs intact, no lid lag, and anicteric sclera Cardiovascular: Normal S1S2, systolic murmur. Tunnel dialysis catheter right anterior chest with no surrounding erythema or drainage and dressing is clean, dry, and intact.. AV fistula left upper extremity, bruit and thrill intact. Lungs: Lungs CTA bilaterally, no rhonchi, no rales, no wheezing, and no accessory muscle usage. Abdominal: soft, slight tenderness upon palpation to suprapubic region and palpable mass noted to left lower quadrant approximately the size of a golf ball. Ext: ROM intact. No gross muscle atrophy, no edema, no contractures Neuro: Speech clear, face symmetrical Psych: Alert and oriented to person, place, time, and situation. Appropriate and pleasant affect. Based on my assessment of this patient, this patient meets a high complexity l evel of care. Patient has an acute diagnosis of UTI that poses a threat to life or bodily function. Recurrent multidrug resistant UTIs: UCx Klebsiella oxytoca. Discussed with Dr. García, continue Ceftazidime 1g IV QD, Ceftin 250 mg PO BID x 7 days on discharge. Urology consult for possible ureteral stent removal. LUQ mass: Surgery recommends outpatient follow up. ESRD on dialysis Mondays/Wednesdays/Fridays: Nephrology on board. Bicytopenia with anemia and thrombocytopenia, likely resulting from ESRD: Ferrous sulfate 325 mg twice daily. Aranesp 40 g subcu every 7 days Chronic systolic heart failure with previously known EF of 40-45%: Beta camden and Lasix as below. History of bioprosthetic aortic valve replacement Hypertension: Coreg 3.125 mg PO BID. Lasix 80 mg PO QD. Hyperlipidemia: ASA 81 mg PO QD. Lipitor 40 mg PO QD. Left bundle-branch block Peripheral neuropathy: Lyrica 25 mg daily. Pressure ulcer to coccyx, present upon arrival Resolved: Lactic acidosis CODE STATUS: NO CODE DVT Prophylaxis: Heparin SQ GI Prophylaxis: Protonix Designated medical POA if patient is not able to make medical decisions for themselves: I have reviewed the following systems consultant notes: ID, Nephrology I have reviewed the results of the following tests: CBC, BMP I have ordered the following tests: I have discussed the care of this patient with the following independent historian: I have independently interpreted the following test below: I have discussed the management of this patient with the following physician: Discussed with Dr. Duke. Objective - Vital Signs Vital signs: Vital Signs Temp 97.9 F 04/16/23 08:00 Pulse 73 04/16/23 08:00 Resp 18 04/16/23 08:00 BP 110/48 04/16/23 08:00 Pulse Ox 100 04/16/23 08:00 FiO2 Intake & Output 04/15/23 04/16/23 04/16/23 18:59 06:59 18:59 Intake Total 700 400 Output Total 1900 Balance 700 -1500 Intake: Oral 700 Hemodialysis 400 Output: Hemodialysis 1900 Other: Voiding Method Toilet # Voids 3 - Labs CBC & Chem 7: 04/16/23 10:20 04/16/23 09:20 Labs: Abnormal Lab Results - Last 24 Hours (Table) 04/15/23 04/16/23 04/16/23 Range/Units 19:15 09:20 10:20 RBC 3.13 L (3.80-5.40) m/uL Hgb 9.8 L (11.4-16.0) gm/dL Hct 30.1 L (34.0-46.0) % RDW 20.7 H (11.5-15.5) % Plt Count 129 L D (150-450) k/uL Sodium 134 L (137-145) mmol/L Chloride 95 L (98-107) mmol/L Carbon Dioxide 19 L (22-30) mmol/L BUN 31 H (7-17) mg/dL Creatinine 2.78 H (0.52-1.04) mg/dL Glucose 157 H (74-99) mg/dL POC Glucose (mg/dL) 129 H (70-110) mg/dL Microbiology - Last 24 Hours (Table) 04/12/23 19:00 Blood Culture - Preliminary Blood 04/12/23 18:30 Blood Culture - Preliminary Blood
[2023-04-16 12:34] LABS: Glucose,Whole Blood 89 mg/dL (70-110)
--- NOTE | 2023-04-16 17:13 | P.GSCN ---
History of Present Illness Consult date: 04/16/23 Reason for Consult: Gross hematuria, UTI History of present illness: this is a 83-year-old female that is admitted to the hospital with a Klebsiella UTI. She is a patient of Dr. Peterson. She has history of right-sided hydronephrosis secondary to a benign ureteral stricture currently being managed with chronic ureteral stent. Stent was last exchanged on Mar [address] Alexander. She's also history of end-stage renal disease on hemodialysis, but does make urine. Indicates at baseline she voids every 3 hours.. history of significant interstitial cystitis its associated with gross hematuria. She underwent a cystoscopy with right stent exchange by Dr. Peterson on March 04. Her stent was changed uneventfully. Urology is consulted for her UTI, and whether the stent can be removed. Patient does have significant bladder symptoms but also has history of interstitial cystitis. She denies any flank pain. Infectious disease is on board for UTI Review of Systems - Constitutional Denies fever, Denies weight loss - EENT Ears, nose, mouth and throat: Denies dysphagia - Respiratory Denies cough, Denies 7 - Gastrointestinal Reports abdominal pain - Genitourinary Genitourinary: Reports dysuria, Reports hematuria, Denies flank pain Past Medical History Past Medical History: Dialysis, Hyperlipidemia, Hypertension Additional Past Medical History / Comment(s): hypothyroidism, chronic back/neck pain-pain rt leg and walks with walker, mitral valve murmur, hemodialysis MWF-av access rt chest, c diff yrs ago when took clindamycin for tooth extraction,UTI,has lung nodules. has bundle block on ekgs, cystitis. controls diabetes with diet. takes carvedilol if Systolic over 150.hasnt needed,. , small open area on coccyx that she normally wears a cushion pad. History of Any Multi-Drug Resistant Organisms: VRE Year Discovered:: 03/25/23 MDRO Source:: Urine Past Surgical History: Hysterectomy, Joint Replacement Additional Past Surgical History / Comment(s): neck [id number] surgery, heart aortic valve replacement, rt ureter stent x 3, kristi knee replacements, left forearm graft for Hemodialysis, right subclavian HD cath 11/2022 Past Anesthesia/Blood Transfusion Reactions: No Reported Reaction Additional Past Anesthesia/Blood Transfusion Reaction / Comm: states "no problems with intubation but was told by Anesthesia vocal cords are anterior", no problems with prior blood transfusion. adopted Past Psychological History: No Psychological Hx Reported Smoking Status: Never smoker Past Alcohol Use History: None Reported Past Drug Use History: None Reported - Past Family History Family Family Medical History: No Reported History Additional Family Medical History / Comment(s): adopted Medications and Allergies Home Medications Medication Instructions Recorded Confirmed Type Albuterol Inhaler [Ventolin Hfa 2 puff INHALATION RT-Q4H PRN 06/19/21 04/12/23 History Inhaler] Levothyroxine Sodium [Synthroid] 88 mcg PO DAILY 06/19/21 04/12/23 History Omeprazole 40 mg PO DAILY 06/19/21 04/12/23 History Tamsulosin [Flomax] 0.4 mg PO HS 02/03/22 04/12/23 History Hyoscyamine Sulfate [Levsin] 0.125 mg PO TID PRN 07/08/22 04/12/23 History Loratadine [Claritin] 10 mg PO DAILY PRN 07/28/22 04/12/23 History Atorvastatin [Lipitor] 40 mg PO HS 09/08/22 04/12/23 History Mirabegron [Myrbetriq] 50 mg PO HS 10/19/22 04/12/23 History Multivitamins, Thera [Multivitamin 1 tab PO HS 10/19/22 04/12/23 History (formulary)] Ferrous Sulfate [Iron (65 MG 325 mg PO BID 12/25/22 04/12/23 History Elemental)] Lactulose 20 gm PO TID PRN 12/25/22 04/12/23 History Sevelamer [Renvela] 800 mg PO W/SUPPER 12/25/22 04/12/23 History Pregabalin [Lyrica] 25 mg PO DAILY #3 cap 01/03/23 04/12/23 Rx Pregabalin [Lyrica] 50 mg PO HS #3 cap 01/03/23 04/12/23 Rx HYDROcodone/APAP 7.5-325MG [[place] 1 tab PO Q6HR PRN 03/10/23 04/12/23 History 7.5-325] Vitamin B Complex 1 cap PO W/SUPPER 03/10/23 04/12/23 History carvediloL [Coreg] 3.125 mg PO BID PRN 03/10/23 04/12/23 History Furosemide [Lasix] 80 mg PO DAILY #7 tab 03/14/23 04/12/23 Rx Aspirin 81 mg PO DAILY 03/27/23 04/12/23 History polyethylene glycoL 3350 [Miralax] 17 gm PO DAILY PRN 03/30/23 04/12/23 History Allergies Allergy/AdvReac Type Severity Reaction Status Date / Time Penicillins Allergy Anaphylaxis Verified 04/12/23 18:11 Sulfa (Sulfonamide Allergy Rash/Hives Verified 04/12/23 18:11 Antibiotics) clindamycin AdvReac c diff Verified 04/12/23 18:11 morphine AdvReac Nausea & Verified 04/12/23 18:11 Vomiting Surgical - Exam Vital Signs Temp Pulse Resp BP Pulse Ox 97.7 F 87 20 108/71 100 04/12/23 15:50 04/12/23 15:50 04/12/23 15:50 04/12/23 15:50 04/12/23 15:50 - General no distress, moderate pain - Eyes normal ocular movement, no pale - ENT normal nares, normal mucosa - Respiratory normal expansion, normal respiratory effort - Abdomen Abdomen: soft, non tender - Psychiatric oriented to time, oriented to person, oriented to place Results - Labs 04/16/23 10:20 04/16/23 09:20 Abnormal Lab Results - Last 24 Hours (Table) 04/15/23 04/16/23 04/16/23 Range/Units 19:15 09:20 10:20 RBC 3.13 L (3.80-5.40) m/uL Hgb 9.8 L (11.4-16.0) gm/dL Hct 30.1 L (34.0-46.0) % RDW 20.7 H (11.5-15.5) % Plt Count 129 L D (150-450) k/uL Sodium 134 L (137-145) mmol/L Chloride 95 L (98-107) mmol/L Carbon Dioxide 19 L (22-30) mmol/L BUN 31 H (7-17) mg/dL Creatinine 2.78 H (0.52-1.04) mg/dL Glucose 157 H (74-99) mg/dL POC Glucose (mg/dL) 129 H (70-110) mg/dL Microbiology - Last 24 Hours (Table) 04/12/23 18:30 Blood Culture - Preliminary Blood 04/12/23 19:00 Blood Culture - Preliminary Blood Diabetes panel 04/16/23 Range/Units 09:20 Sodium 134 L (137-145) mmol/L Potassium 3.8 (3.5-5.1) mmol/L Chloride 95 L (98-107) mmol/L Carbon Dioxide 19 L (22-30) mmol/L BUN 31 H (7-17) mg/dL Creatinine 2.78 H (0.52-1.04) mg/dL Glucose 157 H (74-99) mg/dL Calcium 9.2 (8.4-10.2) mg/dL Calcium panel 04/16/23 Range/Units 09:20 Calcium 9.2 (8.4-10.2) mg/dL Pituitary panel 04/16/23 Range/Units 09:20 Sodium 134 L (137-145) mmol/L Potassium 3.8 (3.5-5.1) mmol/L Chloride 95 L (98-107) mmol/L Carbon Dioxide 19 L (22-30) mmol/L BUN 31 H (7-17) mg/dL Creatinine 2.78 H (0.52-1.04) mg/dL Glucose 157 H (74-99) mg/dL Calcium 9.2 (8.4-10.2) mg/dL Adrenal panel 04/16/23 Range/Units 09:20 Sodium 134 L (137-145) mmol/L Potassium 3.8 (3.5-5.1) mmol/L Chloride 95 L (98-107) mmol/L Carbon Dioxide 19 L (22-30) mmol/L BUN 31 H (7-17) mg/dL Creatinine 2.78 H (0.52-1.04) mg/dL Glucose 157 H (74-99) mg/dL Calcium 9.2 (8.4-10.2) mg/dL Assessment and Plan Assessment: 83-year-old female history of right ureteral stricture been managed with a chronic stent. She is a patient of Dr. Peterson stent was last seen on March 04. Patient admitted to the hospital with UTI. Of note she has history of significant interstitial cystitis. Urology is consulted for her UTI and for stent management. At this point the stent was changed last approximetely 6 weeks ago and no need to change the stent at this time. Patient was questioning whether stent can be removed. Discussed with her given her history of urethral stricture I do recommend keeping the stent in place at this time, if the stent is removed there is potential that the ureter can be completely obstructed and at that time a future stent placement may not be feasible. Patient is on hemodialysis but she still makes urine, given that she is not anuric I do recommend keeping the stent in place. Her symptoms are more likely to be related to her interstitial cystitis rather than the stent. At this time she can follow-up as an outpatient with Dr. Alexander to discuss any further management for stent
[2023-04-16 17:23] LABS: Glucose,Whole Blood 101 mg/dL (70-110)
--- NOTE | 2023-04-16 17:32 | P.PN ---
Subjective Progress Note Date: 04/16/23 Principal diagnosis: Reason for follow-up is recurrent UTI Patient is a 83-year-old female with a past medical history significant for hypertension hyperlipidemia end-stage renal disease on dialysis Thursday through the right chest wall permacatheter patient also have a functioning left upper extremity AV fistula patient still makes urine and did have a history of recurrent UTI with recent outpatient culture positive for Klebsiella and Pseudomonas. On today's evaluation that is 04/16/2023 the patient remains to be afebrile, patient is breathing comfortably on room air the patient denies chest pain shortness of the cough patient denies any abdominal pain no nausea vomiting and urine symptoms has improved. Patient did have a white count of 6.5 creatinine is 2.78 urine with Klebsiella blood culture negative Objective - Vital Signs Vital signs: Vital Signs Temp 98.4 F 04/16/23 12:44 Pulse 77 04/16/23 12:44 Resp 16 04/16/23 12:44 BP 107/67 04/16/23 12:44 Pulse Ox 99 04/16/23 12:44 FiO2 Intake & Output 04/15/23 04/16/23 04/16/23 18:59 06:59 18:59 Intake Total 700 400 Output Total 1900 Balance 700 -1500 Intake: Oral 700 Hemodialysis 400 Output: Hemodialysis 1900 Other: Voiding Method Toilet # Voids 3 - Exam GENERAL DESCRIPTION: An elderly female up in the chair in no distress RESPIRATORY SYSTEM: Unlabored breathing , decreased breath sounds at bases HEART: S1 S2 regular rate and rhythm , ABDOMEN: Soft , no tenderness EXTREMITIES: No edema feet - Labs CBC & Chem 7: 04/16/23 10:20 04/16/23 09:20 Labs: Abnormal Lab Results - Last 24 Hours (Table) 04/15/23 04/16/23 04/16/23 Range/Units 19:15 09:20 10:20 RBC 3.13 L (3.80-5.40) m/uL Hgb 9.8 L (11.4-16.0) gm/dL Hct 30.1 L (34.0-46.0) % RDW 20.7 H (11.5-15.5) % Plt Count 129 L D (150-450) k/uL Sodium 134 L (137-145) mmol/L Chloride 95 L (98-107) mmol/L Carbon Dioxide 19 L (22-30) mmol/L BUN 31 H (7-17) mg/dL Creatinine 2.78 H (0.52-1.04) mg/dL Glucose 157 H (74-99) mg/dL POC Glucose (mg/dL) 129 H (70-110) mg/dL Microbiology - Last 24 Hours (Table) 04/12/23 19:00 Blood Culture - Preliminary Blood 04/12/23 18:30 Blood Culture - Preliminary Blood Assessment and Plan (1) Allergy to multiple antibiotics Current Visit: Yes Status: Acute Code(s): Z88.1 - ALLERGY STATUS TO OTHER ANTIBIOTIC AGENTS SNOMED Code(s): 938814224 (2) Urinary tract infection Current Visit: Yes Status: Acute Code(s): N39.0 - URINARY TRACT INFECTION, SITE NOT SPECIFIED SNOMED Code(s): 74747139 Plan: 1patient with a history of recurrent urinary tract infection in this patient have grown multiple pathogen from her urine culture in the recent past on 03/25/2023 she grew VRE that was treated with Zyvox, however repeat culture on 04/01/2023 is growing Klebsiella and Pseudomonas aeruginosa presented to hospital with generalized not feeling well from burning of urine and did have a positive UA concerning for a symptomatic UTI Patient urine culture has been finalized with Klebsiella sensitive pathogen currently covered with Fortaz finishing therapy Ceftin and monitor clinical course closely question and concerns were answered Dictation was produced using [employer] dictation software. please excuse any grammatical, word or spelling errors. Time with Patient: Less than 30
[2023-04-16] MEDS: SEVELAMER 800 MG TAB PO SCH (17:48)
[2023-04-16] MEDS: SODIUM CHLORIDE 0.9% 1,000 ML IV SCH (18:31)
[2023-04-16 20:27] LABS: Glucose,Whole Blood 118 mg/dL (70-110)
[2023-04-16] MEDS: PREGABALIN 50 MG CAP PO SCH (20:39)
[2023-04-16] MEDS: ATORVASTATIN 40 MG TAB PO SCH (20:39)
[2023-04-16] MEDS: TAMSULOSIN 0.4 MG CAP.ER.24H PO SCH (20:39)
[2023-04-16] MEDS: MULTIVITAMINS, THERA 1 EACH TAB PO SCH (20:39)
[2023-04-16] MEDS: NON FORMULARY DRUG (Mirabegron [Myrbetriq] 50 MG Tab.Er.24h) PO SCH (20:40)
[2023-04-17] MEDS: HYDROcodone/APAP 7.5-325MG 1 EACH TAB PO PRN ×3 (01:50→13:21)
[2023-04-17] MEDS: LEVOTHYROXINE 88 MCG TAB PO SCH (05:29)
[2023-04-17 07:20] LABS: Glucose,Whole Blood 92 mg/dL (70-110)
[2023-04-17 07:33] LABS: Anisocytosis Moderate; HCT 28.9 % (34.0-46.0); HGB 9.5 gm/dL (11.4-16.0); Hypochromasia Slight; MCH 31.5 pg (25.0-35.0); MCHC 32.9 g/dL (31.0-37.0); MCV 95.9 fL (80.0-100.0); Macrocytosis Slight; Mean Platelet Volume 9.8; Platelet Count 151 k/uL (150-450); RBC 3.01 m/uL (3.80-5.40); RDW 21.1 % (11.5-15.5); WBC 6.9 k/uL (3.8-10.6)
[2023-04-17 07:44] LABS: African American GFR (CKD) 12 (>60 ml/min/1.73 sqM); Anion Gap 16 mmol/L; Blood Urea Nitrogen 45 mg/dL (7-17); Carbon Dioxide 25 mmol/L (22-30); Chloride 94 mmol/L (98-107); Glucose 90 mg/dL (74-99); Non-African American GFR(CKD) 11 (>60 ml/min/1.73 sqM); Potassium 3.8 mmol/L (3.5-5.1); Sodium 135 mmol/L (137-145)
[2023-04-17] MEDS: PREGABALIN 25 MG CAP PO SCH (08:30)
[2023-04-17] MEDS: ASPIRIN 81 MG PO SCH (08:30)
[2023-04-17] MEDS: FERROUS SULFATE 325 MG TAB PO SCH (08:31)
[2023-04-17] MEDS: PANTOPRAZOLE 40 MG TABLET PO SCH (08:31)
[2023-04-17] MEDS: HEPARIN SODIUM,PORCINE 5,000 UNIT/ML 1 ML VIAL SQ SCH (08:31)
[2023-04-17 08:42] VITALS: PULSE 73
--- NOTE | 2023-04-17 11:32 | P.PN ---
Subjective Patient is seen in follow-up for end-stage renal disease. She is maintained on hemodialysis on Thursday and Thursday schedule. Denies chest pain or shortness of breath. No active complaints. Tolerating dialysis well. Vital signs stable. HEENT: Head exam is unremarkable. LUNGS: No audible rhonchi or wheezes. HEART: Rate and Rhythm are regular. ABDOMEN: Non-tender. EXTREMITITES: No edema. Objective - Vital Signs Vital signs: Vital Signs Temp 97.5 F L 04/17/23 07:27 Pulse 73 04/17/23 08:28 Resp 16 04/17/23 07:27 BP 111/62 04/17/23 08:28 Pulse Ox 97 04/17/23 07:27 FiO2 Intake & Output 04/16/23 04/17/23 04/17/23 18:59 06:59 18:59 Intake Total 50 Balance 50 Intake: Intake, IV Titration 50 Amount cefTAZidime 1 gm In 50 Sodium Chloride 0.9% 50 ml @ 12.5 mls/hr IVPB Q24H [facility] Rx#:[id number] Other: Voiding Method Toilet Toilet Toilet Diaper - Labs CBC & Chem 7: 04/17/23 07:02 04/17/23 07:02 Labs: Abnormal Lab Results - Last 24 Hours (Table) 04/16/23 04/16/23 04/17/23 Range/Units 10:20 20:26 07:02 RBC 3.13 L 3.01 L (3.80-5.40) m/uL Hgb 9.8 L 9.5 L (11.4-16.0) gm/dL Hct 30.1 L 28.9 L (34.0-46.0) % RDW 20.7 H 21.1 H (11.5-15.5) % Plt Count 129 L D (150-450) k/uL Sodium (137-145) mmol/L Chloride (98-107) mmol/L BUN (7-17) mg/dL Creatinine (0.52-1.04) mg/dL POC Glucose (mg/dL) 118 H (70-110) mg/dL 04/17/23 Range/Units 07:02 RBC (3.80-5.40) m/uL Hgb (11.4-16.0) gm/dL Hct (34.0-46.0) % RDW (11.5-15.5) % Plt Count (150-450) k/uL Sodium 135 L (137-145) mmol/L Chloride 94 L (98-107) mmol/L BUN 45 H (7-17) mg/dL Creatinine 3.76 H (0.52-1.04) mg/dL POC Glucose (mg/dL) (70-110) mg/dL Microbiology - Last 24 Hours (Table) 04/12/23 18:30 Blood Culture - Preliminary Blood Assessment and Plan Plan: Assessment: 1. End-stage renal disease may continue on hemodialysis on Thursday schedule. Patient has permacath and also AV graft. Recently started using the AV graft. 2. Recurrent urinary tract infections. On antibiotics per infectious disease. Urine culture positive for Klebsiella. 3. Chronic right hydronephrosis with right ureteral stent last exchanged February 2023. Seen by urology. No plans for intervention at this time. 4. Anemia of chronic kidney disease. High ferritin noted. On Aranesp. 5. Chronic kidney disease mineral bone disease maintained on Renvela. Phosphorus level 3.0 dated 04/13/2023. 6. Left lower quadrant mobile mass. CAT scan showed no findings. Ultrasound showed hypoechoic structure, possibly cystic versus hematoma. Defer management to primary team. Seen by surgery. No interventions planned. 7. Metabolic acidosis secondary to chronic kidney disease. Improved. Plan: Currently seen while undergoing hemodialysis. Next treatment on Thursday.
[2023-04-17 11:51] LABS: Glucose,Whole Blood 92 mg/dL (70-110)
[2023-04-17] MEDS: FUROSEMIDE 80 MG TAB PO SCH (13:21)
--- NOTE | 2023-04-17 13:21 | P.DS ---
Providers Date of admission: 04/12/23 17:59 Expected date of discharge: 04/17/23 Attending physician: Dianne Allison, Consults: 04/12/23 17:59 Consult Physician Routine Consulting Provider: Lianna García Consult Reason/Comments: uti Do you want consulting provider notified?: Yes 04/13/23 08:08 Consult Physician Urgent Consulting Provider: Zack Duke Consult Reason/Comments: Dialysis Do you want consulting provider notified?: Yes 04/16/23 09:53 Consult Physician Urgent Consulting Provider: Philippe Peterson Consult Reason/Comments: ureteral stent, complicated UTI, does she need? Do you want consulting provider notified?: Yes Primary care physician: Naeem Herr MD Hospital Course: Patient is a very pleasant 83-year-old female with a past medical history of recurrent multidrug resistant UTIs following infectious disease, ESRD on dialysis Mondays/Wednesdays/Fridays, hypertension, hyperlipidemia, chronic systolic heart failure with previously known EF of 40-45%, bioprosthetic aortic valve replacement, hypothyroidism, iron deficiency anemia, diet controlled diabetes mellitus, left bundle-branch block, and GERD. She presented to the emergency department with a chief complaint of abdominal pain and concern for UTI. Patient reports recently completing extended course of Linezolid on 04/09/23 secondary to VRE UTI and is currently no longer on any antibiotics. Patient underwent full evaluation in the emergency department. Vital signs upon arrival show blood pressure 108/71, heart rate 87, respiratory rate 20, temp 97.7F, and SpO2 100% on room air. CBC showing normocytic anemia with hemoglobin of 9.3 which is above patient's baseline hemoglobin and acute thrombocytopenia with platelet count of 64. BMP showing elevated renal function as expected with patient's ESRD with BUN of 19, creatinine 1.61, and GFR of 30. Initial lactate was 2.6. Liver profile showing elevated AST of 37 and alkaline phosphatase 151. Urinalysis was concerning for infection with turbid appearance, blood, leukocytes, greater than 182 RBCs and greater than 182 WBCs. EKG was completed showing normal sinus rhythm at 78 bpm with left bundle branch block (left bundle-branch is a chronic and previously known finding). Patient was started on cefepime based upon most recent urine culture and sensitivity report obtained 04/09/23 positive for pseudomonas aeruginosa and Klebsiella oxytoca. Patient admitted under our services with consultation to infectious disease for recurrent multidrug resistant UTI and nephrology for management of dialysis. Urine culture + Klebsiella oxytoca. 04/15 Patient was seen and examined. She reports unstable gait. PT and OT eval pending. Discussed with case management. 04/16 Patient was seen and examined. Patient agreeable for [place]. Discussed with Dr. Duke, plans to consult urology regarding her ureteral stent, she is ESRD on HD, possible thoughts of removing the stent. CBC Hg 9.8 Plt 129. BMP Na 134, Cl 95, bicarb 19, BUN 31, Cr 2.78, glu 157. 04/17 Patient was seen and examined. Urology consulted, recommends leaving ureteral stent in place. Plans for discharge to SNF today. CBC Hg 9.5. BMP Na 135, Cl 94, BUN 45, Cr 3.76. ID recommends Ceftin 250 mg PO BID x 7 days. Vital signs reviewed and stable. General: Nontoxic, no distress and appears stated age. Derm: Skin warm and dry Head: Atraumatic, normocephalic and symmetric. Eyes: EOMs intact, no lid lag, and anicteric sclera Cardiovascular: Normal S1S2, systolic murmur. Tunnel dialysis catheter right anterior chest with no surrounding erythema or drainage and dressing is clean, dry, and intact. AV fistula left upper extremity, bruit and thrill intact. Lungs: Lungs CTA bilaterally, no rhonchi, no rales, no wheezing, and no accessory muscle usage. Abdominal: soft, slight tenderness upon palpation to suprapubic region and palpable mass noted to left lower quadrant approximately the size of a golf ball. Ext: ROM intact. No gross muscle atrophy, no edema, no contractures Neuro: Speech clear, face symmetrical Psych: Alert and oriented to person, place, time, and situation. Appropriate and pleasant affect. Discharge Diagnosis: Recurrent multidrug resistant UTIs: UCx Klebsiella oxytoca. Ceftin 250 mg PO BID x 7 days on discharge. LUQ mass: Surgery recommends outpatient follow up. ESRD on dialysis Mondays/Wednesdays/Fridays Bicytopenia with anemia and thrombocytopenia, likely resulting from ESRD Chronic systolic heart failure with previously known EF of 40-45% History of bioprosthetic aortic valve replacement Hypertension Hyperlipidemia Left bundle-branch block Peripheral neuropathy Pressure ulcer to coccyx, present upon arrival Resolved: Lactic acidosis This complex discharge took 35 minutes to complete. Patient Condition at Discharge: Fair Plan - Discharge Summary Discharge Rx Participant: No New Discharge Prescriptions: New Cefuroxime [Ceftin] 250 mg PO BID 10 Days #20 tab Continue Omeprazole 40 mg PO DAILY Multivitamins, Thera [Multivitamin (formulary)] 1 tab PO HS Ferrous Sulfate [Iron (65 MG Elemental)] 325 mg PO BID Sevelamer [Renvela] 800 mg PO W/SUPPER Vitamin B Complex 1 cap PO W/SUPPER polyethylene glycoL 3350 [Miralax] 17 gm PO DAILY PRN PRN Reason: Constipation Pregabalin [Lyrica] 25 mg PO DAILY #3 cap HYDROcodone/APAP 7.5-325MG [[place] 7.5-325] 1 tab PO Q6HR PRN #12 tab PRN Reason: Pain Albuterol Inhaler [Ventolin Hfa Inhaler] 2 puff INHALATION RT-Q4H PRN PRN Reason: Shortness Of Breath Levothyroxine Sodium [Synthroid] 88 mcg PO DAILY Tamsulosin [Flomax] 0.4 mg PO HS Hyoscyamine Sulfate [Levsin] 0.125 mg PO TID PRN PRN Reason: Secretions Loratadine [Claritin] 10 mg PO DAILY PRN PRN Reason: Allergy Symptoms Atorvastatin [Lipitor] 40 mg PO HS Mirabegron [Myrbetriq] 50 mg PO HS Lactulose 20 gm PO TID PRN PRN Reason: Constipation carvediloL [Coreg] 3.125 mg PO BID PRN PRN Reason: SBP>150 Furosemide [Lasix] 80 mg PO DAILY #7 tab Aspirin 81 mg PO DAILY Pregabalin [Lyrica] 50 mg PO HS #3 cap Discharge Medication List Albuterol Inhaler [Ventolin Hfa Inhaler] 2 puff INHALATION RT-Q4H PRN 06/19/21 [History] Levothyroxine Sodium [Synthroid] 88 mcg PO DAILY 06/19/21 [History] Omeprazole 40 mg PO DAILY 06/19/21 [History] Tamsulosin [Flomax] 0.4 mg PO HS 02/03/22 [History] Hyoscyamine Sulfate [Levsin] 0.125 mg PO TID PRN 07/08/22 [History] Loratadine [Claritin] 10 mg PO DAILY PRN 07/28/22 [History] Atorvastatin [Lipitor] 40 mg PO HS 09/08/22 [History] Mirabegron [Myrbetriq] 50 mg PO HS 10/19/22 [History] Multivitamins, Thera [Multivitamin (formulary)] 1 tab PO HS 10/19/22 [History] Ferrous Sulfate [Iron (65 MG Elemental)] 325 mg PO BID 12/25/22 [History] Lactulose 20 gm PO TID PRN 12/25/22 [History] Sevelamer [Renvela] 800 mg PO W/SUPPER 12/25/22 [History] Vitamin B Complex 1 cap PO W/SUPPER 03/10/23 [History] carvediloL [Coreg] 3.125 mg PO BID PRN 03/10/23 [History] Furosemide [Lasix] 80 mg PO DAILY #7 tab 03/14/23 [Rx] Aspirin 81 mg PO DAILY 03/27/23 [History] polyethylene glycoL 3350 [Miralax] 17 gm PO DAILY PRN 03/30/23 [History] Cefuroxime [Ceftin] 250 mg PO BID 10 Days #20 tab 04/17/23 [Rx] HYDROcodone/APAP 7.5-325MG [[place] 7.5-325] 1 tab PO Q6HR PRN #12 tab 04/17/23 [Rx] Pregabalin [Lyrica] 25 mg PO DAILY #3 cap 04/17/23 [Rx] Pregabalin [Lyrica] 50 mg PO HS #3 cap 04/17/23 [Rx] Follow up Appointment(s)/Referral(s): Naeem Herr MD [Primary Care Provider] - 1-2 days Lianna García MD [STAFF PHYSICIAN] - 1 Week Philippe Peterson MD [STAFF PHYSICIAN] - 1 Week Discharge Disposition: TRANSFER TO SNF/ECF
[2023-04-17 13:34] VITALS: BP 117/56; RESP 18; TEMP 97.7
--- NOTE | 2023-04-17 16:08 | P.PN ---
Subjective Progress Note Date: 04/17/23 Principal diagnosis: Reason for follow-up is recurrent UTI Patient is a 83-year-old female with a past medical history significant for hypertension hyperlipidemia end-stage renal disease on dialysis Thursday through the right chest wall permacatheter patient also have a functioning left upper extremity AV fistula patient still makes urine and did have a history of recurrent UTI with recent outpatient culture positive for Klebsiella and Pseudomonas. On today's evaluation that is 04/17/2023, the patient denies having any fever or any chills patient is breathing comfortably on room air, the patient denies any chest pain shortness of breath or cough no sputum production, the patient denies nausea vomiting no abdominal pain no diarrhea. Patient urinary symptoms have improved The patient white count of 6.9, creatinine 3.76 urine culture with Klebsiella blood culture negative Objective - Vital Signs Vital signs: Vital Signs Temp 97.7 F 04/17/23 13:13 Pulse 73 04/17/23 13:13 Resp 18 04/17/23 13:13 BP 117/56 04/17/23 13:13 Pulse Ox 97 04/17/23 07:27 FiO2 Intake & Output 04/16/23 04/17/23 04/17/23 18:59 06:59 18:59 Intake Total 50 400 Output Total 1900 Balance 50 -1500 Intake: Intake, IV Titration 50 Amount cefTAZidime 1 gm In 50 Sodium Chloride 0.9% 50 ml @ 12.5 mls/hr IVPB Q24H [facility] Rx#:[id number] Hemodialysis 400 Output: Hemodialysis 1900 Other: Voiding Method Toilet Toilet Toilet Diaper - Exam GENERAL DESCRIPTION: An elderly female up in the chair in no distress RESPIRATORY SYSTEM: Unlabored breathing , decreased breath sounds at bases HEART: S1 S2 regular rate and rhythm , ABDOMEN: Soft , no tenderness EXTREMITIES: No edema feet - Labs CBC & Chem 7: 04/17/23 07:02 04/17/23 07:02 Labs: Abnormal Lab Results - Last 24 Hours (Table) 04/16/23 04/17/23 04/17/23 Range/Units 20:26 07:02 07:02 RBC 3.01 L (3.80-5.40) m/uL Hgb 9.5 L (11.4-16.0) gm/dL Hct 28.9 L (34.0-46.0) % RDW 21.1 H (11.5-15.5) % Sodium 135 L (137-145) mmol/L Chloride 94 L (98-107) mmol/L BUN 45 H (7-17) mg/dL Creatinine 3.76 H (0.52-1.04) mg/dL POC Glucose (mg/dL) 118 H (70-110) mg/dL Microbiology - Last 24 Hours (Table) 04/12/23 18:30 Blood Culture - Preliminary Blood Assessment and Plan (1) Allergy to multiple antibiotics Status: Acute Code(s): Z88.1 - ALLERGY STATUS TO OTHER ANTIBIOTIC AGENTS SNOMED Code(s): 798591609 (2) Urinary tract infection Status: Acute Code(s): N39.0 - URINARY TRACT INFECTION, SITE NOT SPECIFIED SNOMED Code(s): 93293020 Plan: 1patient with a history of recurrent urinary tract infection in this patient have grown multiple pathogen from her urine culture in the recent past on 03/25/2023 she grew VRE that was treated with Zyvox, however repeat culture on 04/01/2023 is growing Klebsiella and Pseudomonas aeruginosa presented to hospital with generalized not feeling well from burning of urine and did have a positive UA concerning for a symptomatic UTI 2-Patient urine culture has been finalized with Klebsiella sensitive pathogen , Patient Has shown clinical improvement With Fortaz, finishing therapy with oral Ceftin and close outpatient follow-up Dictation was produced using [employer] dictation software. please excuse any grammatical, word or spelling errors. Time with Patient: Less than 30
== END 2023-04-17 15:47 | DRG 689 ==
LOC: EC 15:42 → 5NMEDONC 17:59
PROVIDERS: ADMIT Internal Medicine; ATTEND Internal Medicine
PROC: 5A1D70Z Performance of Urinary Filtration, Intermittent, Less than 6 Hours Per Day (ICD-10-PCS; principal; 2023-04-15)
DX: N39.0 Urinary tract infection, site not specified (principal); N18.6 End stage renal disease; I13.2 Hypertensive heart and chronic kidney disease with heart failure and with stage 5 chronic kidney disease, or end stage renal disease; Z16.24 Resistance to multiple antibiotics; I50.22 Chronic systolic (congestive) heart failure; I44.7 Left bundle-branch block, unspecified; B96.1 Klebsiella pneumoniae [K. pneumoniae] as the cause of diseases classified elsewhere; D63.1 Anemia in chronic kidney disease; D69.59 Other secondary thrombocytopenia; E11.42 Type 2 diabetes mellitus with diabetic polyneuropathy; M89.8X9 Other specified disorders of bone, unspecified site; Z66 Do not resuscitate; I34.0 Nonrheumatic mitral (valve) insufficiency; L89.159 Pressure ulcer of sacral region, unspecified stage; E11.22 Type 2 diabetes mellitus with diabetic chronic kidney disease; Z96.653 Presence of artificial knee joint, bilateral; E78.5 Hyperlipidemia, unspecified; E03.9 Hypothyroidism, unspecified; G89.29 Other chronic pain; Z99.2 Dependence on renal dialysis; Z79.890 Hormone replacement therapy; Z79.82 Long term (current) use of aspirin; Z79.899 Other long term (current) drug therapy; Z95.2 Presence of prosthetic heart valve; Z87.440 Personal history of urinary (tract) infections; Z90.710 Acquired absence of both cervix and uterus; Z88.1 Allergy status to other antibiotic agents; Z88.5 Allergy status to narcotic agent; Z88.0 Allergy status to penicillin; Z88.2 Allergy status to sulfonamides
CPT/HCPCS: 36415; 76705; 80048; 80053; 81001; 82728; 83540; 83550; 83605; 83735; 84100; 85025; 85027; 87040; 87077; 87086; 87186; 90935; 93005; 96365; 99285

== ENCOUNTER 2023-12-28 12:35 | Observation (INO) | payer MEDICARE, BC ==
--- NOTE | 2023-12-28 13:34 | ED ---
Recheck HPI - General Chief Complaint: Recheck/Abnormal Lab/Rx Stated Complaint: Dialysis issues-sent by Time Seen by Provider: 12/28/23 12:51 Source: patient, RN notes reviewed Mode of arrival: ambulatory Limitations: no limitations - History of Present Illness Initial Comments: This is an 83-year-old female with a history of end-stage renal disease on hemodialysis Thursday, Thursday, Thursday, who presents emergency department accompanied by her son with chief complaint of dialysis fistula complications. Patient states that she went to dialysis this morning to receive treatment when they were unable to access her port. She states that on Thursday there was issues with her port where an ultrasound was completed but treatment was successful. Patient was urged by Dr. Grigsg to report to the emergency department for further evaluation. Patient is currently on 2 antibiotics for prophylaxis of recurrent urinary tract infections. Patient has a right radical nephrectomy scheduled on Thursday of this week at [facility] - Related Data Home Medications Medication Instructions Recorded Confirmed Albuterol Inhaler [Ventolin Hfa 2 puff INHALATION RT-Q4H PRN 06/19/21 12/28/23 Inhaler] Levothyroxine Sodium [Synthroid] 88 mcg PO DAILY 06/19/21 12/28/23 Omeprazole 40 mg PO DAILY 06/19/21 12/28/23 Tamsulosin [Flomax] 0.4 mg PO W/SUPPER 02/03/22 12/28/23 Loratadine [Claritin] 10 mg PO Q2D 07/28/22 12/28/23 Atorvastatin [Lipitor] 40 mg PO W/SUPPER 09/08/22 12/28/23 Multivitamins, Thera [Multivitamin 1 tab PO W/SUPPER 10/19/22 12/28/23 (formulary)] Ferrous Sulfate [Iron (65 MG 325 mg PO BID 12/25/22 12/28/23 Elemental)] Sevelamer [Renvela] 1,600 mg PO W/SUPPER 12/25/22 12/28/23 Vitamin B Complex 1 cap PO W/SUPPER 03/10/23 12/28/23 carvediloL [Coreg] 3.125 mg PO BID-W/MEALS 03/10/23 12/28/23 Aspirin 81 mg PO DIRECTED 03/27/23 12/28/23 polyethylene glycoL 3350 [Miralax] 17 gm PO DAILY 03/30/23 12/28/23 Acetaminophen Tab [Tylenol] 650 mg PO Q4H PRN 12/28/23 12/28/23 Fluticasone Propionate 110 Mcg 2 puff INHALATION RT-BID PRN 12/28/23 12/28/23 [Flovent 110 Mcg Inhaler] Fluticasone Propionate [Flonase 1 spray EA NOSTRIL BID PRN 12/28/23 12/28/23 Allergy Relief] Furosemide [Lasix] 80 mg PO DIRECTED 12/28/23 12/28/23 HYDROcodone/APAP 10-325MG [[place] 1 tab PO Q6HR PRN 12/28/23 12/28/23 10-325] Lactobacillus Rhamnosus GG 1 cap PO W/SUPPER 12/28/23 12/28/23 [Culturelle] Midodrine [ProAmatine] 5 mg PO TID PRN 12/28/23 12/28/23 Nystatin 100,000 Unit/gm Powd 1 applic TOPICAL TID PRN 12/28/23 12/28/23 [Mycostatin Powder] Nystatin 100,000Unit/gm Cream 1 applic TOPICAL BID PRN 12/28/23 12/28/23 [Mycostatin Cream] Pregabalin [Lyrica] 50 mg PO BID-W/MEALS 12/28/23 12/28/23 diphenhydrAMINE HCL [Benadryl] 25 mg PO Q6H PRN 12/28/23 12/28/23 Allergies Allergy/AdvReac Type Severity Reaction Status Date / Time Penicillins Allergy Anaphylaxis Verified 12/28/23 16:53 Sulfa (Sulfonamide Allergy Rash/Hives Verified 12/28/23 16:53 Antibiotics) clindamycin AdvReac c diff Verified 12/28/23 16:53 morphine AdvReac Nausea & Verified 12/28/23 16:53 Vomiting Review of Systems ROS Statement: Those systems with pertinent positive or pertinent negative responses have been documented in the HPI. ROS Other: All systems not noted in ROS Statement are negative. Past Medical History Past Medical History: Dialysis, Hyperlipidemia, Hypertension Additional Past Medical History / Comment(s): hypothyroidism, chronic back/neck pain-pain rt leg and walks with walker, mitral valve murmur, hemodialysis MWF-av access rt chest, c diff yrs ago when took clindamycin for tooth extraction,UTI,has lung nodules. has bundle block on ekgs, cystitis. controls diabetes with diet. takes carvedilol if Systolic over 150.hasnt needed,. , small open area on coccyx that she normally wears a cushion pad. History of Any Multi-Drug Resistant Organisms: VRE Date of last positivie culture/infection: 03/25/23 MDRO Source:: Urine Past Surgical History: Hysterectomy, Joint Replacement Additional Past Surgical History / Comment(s): neck [id number] surgery, heart aortic valve replacement, rt ureter stent x 6, kristi knee replacements, left forearm graft for Hemodialysis, right subclavian HD cath 11/2022 Past Anesthesia/Blood Transfusion Reactions: No Reported Reaction Additional Past Anesthesia/Blood Transfusion Reaction / Comment(s): states "no problems with intubation but was told by Anesthesia vocal cords are anterior", no problems with prior blood transfusion. adopted Past Psychological History: No Psychological Hx Reported Smoking Status: Never smoker Past Alcohol Use History: None Reported Past Drug Use History: None Reported - Past Family History Family Family Medical History: No Reported History Additional Family Medical History / Comment(s): adopted General Exam Limitations: no limitations General appearance: alert, in no apparent distress Eye exam: Present: normal appearance, PERRL, EOMI. Absent: scleral icterus, conjunctival injection, periorbital swelling Respiratory exam: Present: normal lung sounds bilaterally. Absent: respiratory distress, wheezes, rales, rhonchi, stridor Cardiovascular Exam: Present: regular rate, normal rhythm, normal heart sounds. Absent: systolic murmur, diastolic murmur, rubs, gallop, clicks GI/Abdominal exam: Present: soft, normal bowel sounds. Absent: distended, tenderness, guarding, rebound, rigid Left Forearm Wrist exam: Present: other (fistula) Back exam: Present: normal inspection Skin exam: Present: warm, dry, intact, normal color. Absent: rash Course Vital Signs 12/28/23 12:48 Temperature 97.6 F Pulse Rate 81 Respiratory 20 Rate Blood Pressure 120/48 O2 Sat by Pulse 95 Oximetry Medical Decision Making - Medical Decision Making Was pt. sent in by a medical professional or institution (, PA, S[employer], urgent care, hospital, or longterm...) When possible be specific @ -Was advised by vascular surgeon to report to the emergency department for further evaluation of hemodialysis port malfunction Did you speak to anyone other than the patient for history (EMS, parent, family, police, friend...)? What history was obtained from this source @ -To the patient's son at bedside who states that the patient has a history of recurrent urinary tract infections and is currently on 2 prophylactic medications for this Did you review nursing and triage notes (agree or disagree)? Why? @ -I reviewed and agree with nursing and triage notes Were old charts reviewed (outside hosp., previous admission, EMS record, old EKG, old radiological studies, urgent care reports/EKG's, longterm records)? Report findings @ -No old charts were reviewed Differential Diagnosis (chest pain, altered mental status, abdominal pain women, abdominal pain men, vaginal bleeding, weakness, fever, dyspnea, syncope, headache, dizziness, GI bleed, back pain, seizure, CVA, palpatations, mental health, musculoskeletal)? @ -hemodialysis port malfunction EKG interpreted by me (3pts min.). @ -none X-rays interpreted by me (1pt min.). @ -None done CT interpreted by me (1pt min.). @ -None done U/S interpreted by me (1pt. min.). @ -None done What testing was considered but not performed or refused? (CT, X-rays, U/S, labs)? Why? @ -None What meds were considered but not given or refused? Why? @ -None Did you discuss the management of the patient with other professionals (professionals i.e. , PA, S[employer]ER, lab, RT, psych nurse, social service assistant, engine assembler, teacher, precinct commanding officer, director of casework)? Give summary @ -i spoke with Dr. Griggs, vascular surgeon in regard to the patient's presentation. Is recommended that patient be admitted to medicine with nephrology on consult and procedure will be scheduled tomorrow for thrombectomy. Additionally, I spoke with sound internal medicine physician Dr. Davis, in regard to the patient's case and patient is accepted for admission with nephrology on consult. Was smoking cessation discussed for >3mins.? @ -No Was critical care preformed (if so, how long)? @ -No Were there social determinants of health that impacted care today? How? (Homelessness, low income, unemployed, alcoholism, drug addiction, transportation, low edu. Level, literacy, decrease access to med. care, [facility], rehab)? @ -No Was there de-escalation of care discussed even if they declined (Discuss DNR or withdrawal of care, Hospice)? DNR status @ -No What co-morbidities impacted this encounter? (DM, HTN, Smoking, COPD, CAD, Cancer, CVA, ARF, Chemo, Hep., AIDS, mental health diagnosis, sleep apnea, morbid obesity)? @ -chronic kidney disease Was patient admitted / discharged? Hospital course, mention meds given and route, prescriptions, significant lab abnormalities, going to OR and other pertinent info. @ -Admitted. 83-year-old female with dialysis port malfunction. CBC reveals anemia that is chronic with a hemoglobin 8.5 and hematocrit of 25.4, coagulation profile within normal limits, BUN 61 and creatinine 4.60, potassium 5.1. Urinalysis remarkable for infection. Patient will be admitted to general medicine with vascular surgery and nephrology on consult. It is reported that patient will undergo thrombectomy tomorrow. Discussed with Dr. Carmona Undiagnosed new problem with uncertain prognosis? @ -No Drug Therapy requiring intensive monitoring for toxicity (Heparin, Nitro, Insulin, Cardizem)? @ -No Were any procedures done? @ -No Diagnosis/symptom? @ -hemodialysis port malfunction Acute, or Chronic, or Acute on Chronic? @ -Acute Uncomplicated (without systemic symptoms) or Complicated (systemic symptoms)? @ -Uncomplicated Side effects of treatment? @ -No Exacerbation, Progression, or Severe Exacerbation? @ -No Poses a threat to life or bodily function? How? (Chest pain, USA, AR, pneumonia, PE, COPD, DKA, ARF, appy, cholecystitis, CVA, Diverticulitis, Homicidal, Suicidal, threat to staff... and all critical care pts) @ -No - Lab Data Result diagrams: 12/28/23 15:07 12/28/23 15:07 Lab Results 12/28/23 12/28/23 12/28/23 Range/Units 13:50 15:07 15:07 WBC 6.3 (3.8-10.6) k/uL RBC 2.62 L (3.80-5.40) m/uL Hgb 8.5 L (11.4-16.0) gm/dL Hct 25.4 L (34.0-46.0) % MCV 97.3 (80.0-100.0) fL MCH 32.4 (25.0-35.0) pg MCHC 33.3 (31.0-37.0) g/dL RDW 16.6 H (11.5-15.5) % Plt Count 129 L (150-450) k/uL MPV 11.2 Neutrophils % 75 % Lymphocytes % 17 % Monocytes % 3 % Eosinophils % 3 % Basophils % 0 % Neutrophils # 4.7 (1.3-7.7) k/uL Lymphocytes # 1.1 (1.0-4.8) k/uL Monocytes # 0.2 (0-1.0) k/uL Eosinophils # 0.2 (0-0.7) k/uL Basophils # 0.0 (0-0.2) k/uL Anisocytosis Slight Macrocytosis Slight PT 11.2 (10.0-12.5) sec INR 1.0 (<1.2) APTT 25.6 (22.0-30.0) sec Sodium (137-145) mmol/L Potassium (3.5-5.1) mmol/L Chloride (98-107) mmol/L Carbon Dioxide (22-30) mmol/L Anion Gap mmol/L BUN (7-17) mg/dL Creatinine (0.52-1.04) mg/dL Est GFR (CKD-EPI)AfAm (>60 ml/min/1.73 sqM) Est GFR (CKD-EPI)NonAf (>60 ml/min/1.73 sqM) Glucose (74-99) mg/dL Calcium (8.4-10.2) mg/dL Total Bilirubin (0.2-1.3) mg/dL AST (14-36) U/L ALT (4-34) U/L Alkaline Phosphatase (38-126) U/L Total Protein (6.3-8.2) g/dL Albumin (3.5-5.0) g/dL Urine Color Light Yellow Urine Appearance Cloudy H (Clear) Urine pH 6.5 (5.0-8.0) Ur Specific [place] 1.016 (1.001-1.035) Urine Protein 1+ H (Negative) Urine Glucose (UA) Negative (Negative) Urine Ketones Negative (Negative) Urine Blood Small H (Negative) Urine Nitrite Negative (Negative) Urine Bilirubin Negative (Negative) Urine Urobilinogen <2.0 (<2.0) mg/dL Ur Leukocyte Esterase Large H (Negative) Urine RBC 10 H (0-5) /hpf Urine WBC >182 H (0-5) /hpf Urine WBC Clumps Many H (None) /hpf Ur Squamous Epith Cells 7 H (0-4) /hpf Urine Bacteria Occasional H (None) /hpf 12/28/23 Range/Units 15:07 WBC (3.8-10.6) k/uL RBC (3.80-5.40) m/uL Hgb (11.4-16.0) gm/dL Hct (34.0-46.0) % MCV (80.0-100.0) fL MCH (25.0-35.0) pg MCHC (31.0-37.0) g/dL RDW (11.5-15.5) % Plt Count (150-450) k/uL MPV Neutrophils % % Lymphocytes % % Monocytes % % Eosinophils % % Basophils % % Neutrophils # (1.3-7.7) k/uL Lymphocytes # (1.0-4.8) k/uL Monocytes # (0-1.0) k/uL Eosinophils # (0-0.7) k/uL Basophils # (0-0.2) k/uL Anisocytosis Macrocytosis PT (10.0-12.5) sec INR (<1.2) APTT (22.0-30.0) sec Sodium 140 (137-145) mmol/L Potassium 5.1 (3.5-5.1) mmol/L Chloride 106 (98-107) mmol/L Carbon Dioxide 23 (22-30) mmol/L Anion Gap 11 mmol/L BUN 61 H (7-17) mg/dL Creatinine 4.60 H (0.52-1.04) mg/dL Est GFR (CKD-EPI)AfAm 10 (>60 ml/min/1.73 sqM) Est GFR (CKD-EPI)NonAf 8 (>60 ml/min/1.73 sqM) Glucose 109 H (74-99) mg/dL Calcium 9.0 (8.4-10.2) mg/dL Total Bilirubin 0.5 (0.2-1.3) mg/dL AST 27 (14-36) U/L ALT 16 (4-34) U/L Alkaline Phosphatase 166 H (38-126) U/L Total Protein 7.6 (6.3-8.2) g/dL Albumin 4.1 (3.5-5.0) g/dL Urine Color Urine Appearance (Clear) Urine pH (5.0-8.0) Ur Specific [place] (1.001-1.035) Urine Protein (Negative) Urine Glucose (UA) (Negative) Urine Ketones (Negative) Urine Blood (Negative) Urine Nitrite (Negative) Urine Bilirubin (Negative) Urine Urobilinogen (<2.0) mg/dL Ur Leukocyte Esterase (Negative) Urine RBC (0-5) /hpf Urine WBC (0-5) /hpf Urine WBC Clumps (None) /hpf Ur Squamous Epith Cells (0-4) /hpf Urine Bacteria (None) /hpf Disposition Clinical Impression: Dialysis catheter clot or failure Disposition: ADMITTED IP TO THIS [facility] Condition: Stable Decision to Admit Reason: Admit from EC Decision Date: 12/28/23 Decision Time: 16:14
[2023-12-28 14:08] LABS: Appearance,Urine Cloudy (Clear); Bacteria,Urine Occasional /hpf; Bilirubin,Urine Negative (Negative); Blood,Urine Small (Negative); Color,Urine Light Yellow; Glucose,Urine (UA) Negative (Negative); Ketones,Urine Negative (Negative); Leukocyte Esterase,Urine Large (Negative); Nitrite,Urine Negative (Negative); PH, Urine 6.5 (5.0-8.0); Protein,Urine 1+ (Negative); RBC,Urine 10 /hpf (0-5); Specific Gravity,Urine 1.016 (1.001-1.035); Squamous Epithelial Cell,Urine 7 /hpf (0-4); Urobilinogen,Urine <2.0 mg/dL (<2.0); WBC,Urine >182 /hpf (0-5)
[2023-12-28 15:15] LABS: Anisocytosis Slight; Basophils % (A) 0 %; Eosinophils # (A) 0.2 k/uL (0-0.7); Eosinophils % (A) 3 %; HCT 25.4 % (34.0-46.0); HGB 8.5 gm/dL (11.4-16.0); Lymphocytes # (A) 1.1 k/uL (1.0-4.8); Lymphocytes % (A) 17 %; MCH 32.4 pg (25.0-35.0); MCHC 33.3 g/dL (31.0-37.0); MCV 97.3 fL (80.0-100.0); Macrocytosis Slight; Mean Platelet Volume 11.2; Monocytes # (A) 0.2 k/uL (0-1.0); Monocytes % (A) 3 %; Neutrophils # (A) 4.7 k/uL (1.3-7.7); Neutrophils % (A) 75 %; Platelet Count 129 k/uL (150-450); RBC 2.62 m/uL (3.80-5.40); RDW 16.6 % (11.5-15.5); WBC 6.3 k/uL (3.8-10.6)
[2023-12-28 15:28] LABS: Partial Thromboplastin Time 25.6 sec (22.0-30.0); Prothrombin Time 11.2 sec (10.0-12.5)
[2023-12-28 15:31] LABS: ALT 16 U/L (4-34); AST 27 U/L (14-36); African American GFR (CKD) 10 (>60 ml/min/1.73 sqM); Albumin 4.1 g/dL (3.5-5.0); Alkaline Phosphatase 166 U/L (38-126); Anion Gap 11 mmol/L; Blood Urea Nitrogen 61 mg/dL (7-17); Carbon Dioxide 23 mmol/L (22-30); Chloride 106 mmol/L (98-107); Glucose 109 mg/dL (74-99); Non-African American GFR(CKD) 8 (>60 ml/min/1.73 sqM); Potassium 5.1 mmol/L (3.5-5.1); Sodium 140 mmol/L (137-145); Total Bilirubin 0.5 mg/dL (0.2-1.3); Total Protein 7.6 g/dL (6.3-8.2)
[2023-12-28] MEDS ORDERED: NALOXONE 0.4 MG/ML 1 ML VIAL IV PRN (16:14)
[2023-12-28] MEDS: HYDROcodone/APAP 10-325MG 1 EACH TAB PO SCH (16:25)
[2023-12-28] MEDS ORDERED: DEXTROSE 50% SYRINGE 50 ML IVP PRN ×2 (17:00)
[2023-12-28] MEDS ORDERED: FLUTICASONE 110 MCG INHALER INHALATION PRN (17:08)
[2023-12-28] MEDS ORDERED: diphenhydrAMINE 25 MG CAP PO PRN (17:08)
[2023-12-28] MEDS ORDERED: FLUTICASONE NASAL 50MCG/SPRAY 16GM BTL EA NOSTRIL PRN (17:08)
[2023-12-28] MEDS ORDERED: NON FORMULARY DRUG (Vitamin B Complex [Vitamin B Complex] 1 EACH Capsule) PO SCH (17:30)
[2023-12-28 17:45] LABS: Glucose,Whole Blood 95 mg/dL (70-110)
--- NOTE | 2023-12-28 17:50 | P.HPIM ---
History of Present Illness H&P Date: 12/28/23 Patient is a 83-year-old female with history of ESRD on hemodialysis, hypertension, dyslipidemia, chronic systolic heart failure with EF 40 to 45%, bioprosthetic aortic valve replacement, hypothyroidism, iron deficiency anemia, type 2 diabetes, GERD presenting with malfunctioning left arm fistula. She claims that he has given trouble in the past as well. Her last dialysis session was on Thursday. She essentially missed today's dialysis session. Denies any other complaints. Still making urine, but has decreased output. In the ED, temperature was 97.6, pulse 81, respiratory rate 20, blood pressure 120/48, saturating at 95% on room air. WBC 6.3, hemoglobin 8.5, platelet 129, potassium 4.1, anion gap 11, BUN 61, creatinine 4.6, bicarb 23, glucose 109, urinalysis is dirty sample. Patient admitted for repair of dialysis port and further hemodialysis. Vascular surgery and nephrology consulted. Pertinent positives and negatives as discussed in HPI, a complete review of systems was performed and all other systems are negative. Patient seen and examined at bedside. Vital signs reviewed General: nontoxic, no distress, appears at stated age Derm: warm, dry Head: atraumatic, normocephalic, symmetric Eyes: EOMI, no lid lag, anicteric sclera, pupils equal round reactive to light ENT: Nose and ears atraumatic Neck: No thyromegaly, supple Mouth: no lip lesion, mucus membranes moist Cardiovascular: S1S2 reg, no murmur, no edema Lungs: clear to auscultation bilateral, no rhonchi, no rales, no wheeze, no accessory muscle use Abdominal: soft, nontender to palpation, no guarding, no appreciable organomegaly Ext: no gross muscle atrophy, muscle strength muscle strength 5 out of 5 in all 4 extremities, no contractures, unable to palpate thrill in left arm Neuro: CN II-XII grossly intact Psych: Alert, oriented, appropriate affect Assessment/Plan: Active: Malfunctioning AV fistula ESRD on hemodialysis Anemia of end-stage renal disease Mild thrombocytopenia Metabolic bone disease -Nephrology consulted for dialysis -Vascular surgery consulted for dialysis access -Continue sevelamer 1600 mg daily -No active bleeding, continue to monitor CBC -No need for urgent dialysis -Continue Lasix 80 mg daily Type 2 diabetes -Diet controlled -Sliding scale insulin, ACH S, monitor for hypoglycemia Chronic: hypertension dyslipidemia chronic systolic heart failure with EF 40 to 45% bioprosthetic aortic valve replacement hypothyroidism iron deficiency anemia GERD Chronic pain-[place] 10 every 6 hours, monitor for sedation -Home medications restarted The patient is admitted with an anticipated less than 2 midnight stay as observation status for evaluation of malfunctioning dialysis catheter. Surrogate decision-maker: Son CODE STATUS: Full code DVT prophylaxis: Subcu heparin Anticipated discharge date: Tomorrow Anticipated discharge place: Home A total of 55 minutes was spent on the care of this complex patient more than 50% of the time was spent in counseling and care coordination. Past Medical History Past Medical History: Dialysis, Hyperlipidemia, Hypertension Additional Past Medical History / Comment(s): hypothyroidism, chronic back/neck pain-pain rt leg and walks with walker, mitral valve murmur, hemodialysis MWF-av access rt chest, c diff yrs ago when took clindamycin for tooth extraction,UTI,has lung nodules. has bundle block on ekgs, cystitis. controls diabetes with diet. takes carvedilol if Systolic over 150.hasnt needed,. , small open area on coccyx that she normally wears a cushion pad. History of Any Multi-Drug Resistant Organisms: VRE Date of last positivie culture/infection: 03/25/23 MDRO Source:: Urine Past Surgical History: Hysterectomy, Joint Replacement Additional Past Surgical History / Comment(s): neck [id number] surgery, heart aortic valve replacement, rt ureter stent x 6, kristi knee replacements, left forearm graft for Hemodialysis, right subclavian HD cath 11/2022 Past Anesthesia/Blood Transfusion Reactions: No Reported Reaction Additional Past Anesthesia/Blood Transfusion Reaction / Comment(s): states "no problems with intubation but was told by Anesthesia vocal cords are anterior", no problems with prior blood transfusion. adopted Past Psychological History: No Psychological Hx Reported Smoking Status: Never smoker Past Alcohol Use History: None Reported Past Drug Use History: None Reported - Past Family History Family Family Medical History: No Reported History Additional Family Medical History / Comment(s): adopted Medications and Allergies Home Medications Medication Instructions Recorded Confirmed Type Albuterol Inhaler [Ventolin Hfa 2 puff INHALATION RT-Q4H PRN 06/19/21 12/28/23 History Inhaler] Levothyroxine Sodium [Synthroid] 88 mcg PO DAILY 06/19/21 12/28/23 History Omeprazole 40 mg PO DAILY 06/19/21 12/28/23 History Tamsulosin [Flomax] 0.4 mg PO W/SUPPER 02/03/22 12/28/23 History Loratadine [Claritin] 10 mg PO Q2D 07/28/22 12/28/23 History Atorvastatin [Lipitor] 40 mg PO W/SUPPER 09/08/22 12/28/23 History Multivitamins, Thera [Multivitamin 1 tab PO W/SUPPER 10/19/22 12/28/23 History (formulary)] Ferrous Sulfate [Iron (65 MG 325 mg PO BID 12/25/22 12/28/23 History Elemental)] Sevelamer [Renvela] 1,600 mg PO W/SUPPER 12/25/22 12/28/23 History Vitamin B Complex 1 cap PO W/SUPPER 03/10/23 12/28/23 History carvediloL [Coreg] 3.125 mg PO BID-W/MEALS 03/10/23 12/28/23 History Aspirin 81 mg PO DIRECTED 03/27/23 12/28/23 History polyethylene glycoL 3350 [Miralax] 17 gm PO DAILY 03/30/23 12/28/23 History Acetaminophen Tab [Tylenol] 650 mg PO Q4H PRN 12/28/23 12/28/23 History Fluticasone Propionate 110 Mcg 2 puff INHALATION RT-BID PRN 12/28/23 12/28/23 History [Flovent 110 Mcg Inhaler] Fluticasone Propionate [Flonase 1 spray EA NOSTRIL BID PRN 12/28/23 12/28/23 History Allergy Relief] Furosemide [Lasix] 80 mg PO DIRECTED 12/28/23 12/28/23 History HYDROcodone/APAP 10-325MG [[place] 1 tab PO Q6HR PRN 12/28/23 12/28/23 History 10-325] Lactobacillus Rhamnosus GG 1 cap PO W/SUPPER 12/28/23 12/28/23 History [Culturelle] Midodrine [ProAmatine] 5 mg PO TID PRN 12/28/23 12/28/23 History Nystatin 100,000 Unit/gm Powd 1 applic TOPICAL TID PRN 12/28/23 12/28/23 History [Mycostatin Powder] Nystatin 100,000Unit/gm Cream 1 applic TOPICAL BID PRN 12/28/23 12/28/23 History [Mycostatin Cream] Pregabalin [Lyrica] 50 mg PO BID-W/MEALS 12/28/23 12/28/23 History diphenhydrAMINE HCL [Benadryl] 25 mg PO Q6H PRN 12/28/23 12/28/23 History Allergies Allergy/AdvReac Type Severity Reaction Status Date / Time Penicillins Allergy Anaphylaxis Verified 12/28/23 16:53 Sulfa (Sulfonamide Allergy Rash/Hives Verified 12/28/23 16:53 Antibiotics) clindamycin AdvReac c diff Verified 12/28/23 16:53 morphine AdvReac Nausea & Verified 12/28/23 16:53 Vomiting Physical Exam Vitals: Vital Signs Temp Pulse Resp BP Pulse Ox 12/28/23 12:48 97.6 F 81 20 120/48 95 Intake and Output 12/28/23 12/28/23 12/28/23 06:59 14:59 22:59 Other: Weight 88.904 kg Results CBC & Chem 7: 12/28/23 15:07 12/28/23 15:07 Labs: Abnormal Lab Results - Last 24 Hours (Table) 12/28/23 12/28/23 12/28/23 Range/Units 13:50 15:07 15:07 RBC 2.62 L (3.80-5.40) m/uL Hgb 8.5 L (11.4-16.0) gm/dL Hct 25.4 L (34.0-46.0) % RDW 16.6 H (11.5-15.5) % Plt Count 129 L (150-450) k/uL BUN 61 H (7-17) mg/dL Creatinine 4.60 H (0.52-1.04) mg/dL Glucose 109 H (74-99) mg/dL Alkaline Phosphatase 166 H (38-126) U/L Urine Appearance Cloudy H (Clear) Urine Protein 1+ H (Negative) Urine Blood Small H (Negative) Ur Leukocyte Esterase Large H (Negative) Urine RBC 10 H (0-5) /hpf Urine WBC >182 H (0-5) /hpf Urine WBC Clumps Many H (None) /hpf Ur Squamous Epith Cells 7 H (0-4) /hpf Urine Bacteria Occasional H (None) /hpf
[2023-12-28] MEDS: ATORVASTATIN 40 MG TAB PO SCH (18:32)
[2023-12-28] MEDS: SEVELAMER 800 MG TAB PO SCH (18:33)
[2023-12-28] MEDS: TAMSULOSIN 0.4 MG CAP.ER.24H PO SCH (18:33)
[2023-12-28] MEDS: LACTOBACILLUS ACIDOPHILUS/PECT 1 EACH CAPSULE PO SCH (18:33)
[2023-12-28] MEDS: MULTIVITAMINS, THERA 1 EACH TAB PO SCH (18:34)
[2023-12-28] MEDS: INSULIN ASPART (NovoLOG) 100 UNIT/ML VIAL SQ SCH (18:34)
[2023-12-28] MEDS: PREGABALIN 50 MG CAP PO SCH (18:34)
[2023-12-28] MEDS: carvediloL 3.125 MG TAB PO SCH (18:36)
[2023-12-28 20:33] LABS: Glucose,Whole Blood 106 mg/dL (70-110)
[2023-12-28] MEDS: FERROUS SULFATE 325 MG TAB PO SCH (20:41)
[2023-12-28] MEDS: HEPARIN SODIUM,PORCINE 5,000 UNIT/ML 1 ML VIAL SQ SCH (23:07)
[2023-12-29] MEDS: PANTOPRAZOLE 40 MG TABLET PO SCH (05:04)
[2023-12-29] MEDS: LEVOTHYROXINE 88 MCG TAB PO SCH (05:04)
[2023-12-29 05:10] LABS: Glucose,Whole Blood 107 mg/dL (70-110)
--- NOTE | 2023-12-29 08:22 | P.GSCN ---
History of Present Illness Consult date: 12/29/23 Reason for Consult: Malfunctioning AV graft Requesting physician: Camelia Neves History of present illness: 83-year-old female with a past medical history including end-stage renal disease on hemodialysis schedule Thursday, hypertension, hyperlipidemia, heart failure, aortic valve replacement, chronic anemia, hypothyroidism, diabetes mellitus who presented to the emergency department with complaints of malfunctioning left upper extremity graft. Patient sees Dr. Sanz had left upper extremity loop AV graft placed 12/29/2022. She has had problems in the past with it malfunctioning and has required fistulogram's and angioplasty with the last 1 being in March 2023. States on Thursday she was able to complete her dialysis however yesterday the graft was not functioning. She was told to come in for further evaluation. She denies any shortness of breath or chest pain. No abdominal pain, nausea or vomiting. She is scheduled tomorrow for a right radical nephrectomy and is currently on antibiotics for chronic UTI. Review of Systems A 14 point review systems was completed all pertinent positives and negatives as stated in the HPI. Past Medical History Past Medical History: Dialysis, Hyperlipidemia, Hypertension Additional Past Medical History / Comment(s): hypothyroidism, chronic back/neck pain-pain rt leg and walks with walker, mitral valve murmur, hemodialysis MWF-av access rt chest, c diff yrs ago when took clindamycin for tooth extraction,UTI,has lung nodules. has bundle block on ekgs, cystitis. controls diabetes with diet. takes carvedilol if Systolic over 150.hasnt needed,. , small open area on coccyx that she normally wears a cushion pad. History of Any Multi-Drug Resistant Organisms: VRE Year Discovered:: 03/25/23 MDRO Source:: Urine Past Surgical History: Hysterectomy, Joint Replacement Additional Past Surgical History / Comment(s): neck [id number] surgery, heart aortic valve replacement, rt ureter stent x 6, kristi knee replacements, left forearm graft for Hemodialysis, right subclavian HD cath 11/2022 Past Anesthesia/Blood Transfusion Reactions: No Reported Reaction Additional Past Anesthesia/Blood Transfusion Reaction / Comm: states "no problems with intubation but was told by Anesthesia vocal cords are anterior", no problems with prior blood transfusion. adopted Past Psychological History: No Psychological Hx Reported Smoking Status: Never smoker Past Alcohol Use History: None Reported Past Drug Use History: None Reported - Past Family History Family Family Medical History: No Reported History Additional Family Medical History / Comment(s): adopted Medications and Allergies Home Medications Medication Instructions Recorded Confirmed Type Albuterol Inhaler [Ventolin Hfa 2 puff INHALATION RT-Q4H PRN 06/19/21 12/28/23 History Inhaler] Levothyroxine Sodium [Synthroid] 88 mcg PO DAILY 06/19/21 12/28/23 History Omeprazole 40 mg PO DAILY 06/19/21 12/28/23 History Tamsulosin [Flomax] 0.4 mg PO W/SUPPER 02/03/22 12/28/23 History Loratadine [Claritin] 10 mg PO Q2D 07/28/22 12/28/23 History Atorvastatin [Lipitor] 40 mg PO W/SUPPER 09/08/22 12/28/23 History Multivitamins, Thera [Multivitamin 1 tab PO W/SUPPER 10/19/22 12/28/23 History (formulary)] Ferrous Sulfate [Iron (65 MG 325 mg PO BID 12/25/22 12/28/23 History Elemental)] Sevelamer [Renvela] 1,600 mg PO W/SUPPER 12/25/22 12/28/23 History Vitamin B Complex 1 cap PO W/SUPPER 03/10/23 12/28/23 History carvediloL [Coreg] 3.125 mg PO BID-W/MEALS 03/10/23 12/28/23 History Aspirin 81 mg PO DIRECTED 03/27/23 12/28/23 History polyethylene glycoL 3350 [Miralax] 17 gm PO DAILY 03/30/23 12/28/23 History Acetaminophen Tab [Tylenol] 650 mg PO Q4H PRN 12/28/23 12/28/23 History Fluticasone Propionate 110 Mcg 2 puff INHALATION RT-BID PRN 12/28/23 12/28/23 History [Flovent 110 Mcg Inhaler] Fluticasone Propionate [Flonase 1 spray EA NOSTRIL BID PRN 12/28/23 12/28/23 History Allergy Relief] Furosemide [Lasix] 80 mg PO DIRECTED 12/28/23 12/28/23 History HYDROcodone/APAP 10-325MG [[place] 1 tab PO Q6HR PRN 12/28/23 12/28/23 History 10-325] Lactobacillus Rhamnosus GG 1 cap PO W/SUPPER 12/28/23 12/28/23 History [Culturelle] Midodrine [ProAmatine] 5 mg PO TID PRN 12/28/23 12/28/23 History Nystatin 100,000 Unit/gm Powd 1 applic TOPICAL TID PRN 12/28/23 12/28/23 History [Mycostatin Powder] Nystatin 100,000Unit/gm Cream 1 applic TOPICAL BID PRN 12/28/23 12/28/23 History [Mycostatin Cream] Pregabalin [Lyrica] 50 mg PO BID-W/MEALS 12/28/23 12/28/23 History diphenhydrAMINE HCL [Benadryl] 25 mg PO Q6H PRN 12/28/23 12/28/23 History Allergies Allergy/AdvReac Type Severity Reaction Status Date / Time Penicillins Allergy Anaphylaxis Verified 12/28/23 16:53 Sulfa (Sulfonamide Allergy Rash/Hives Verified 12/28/23 16:53 Antibiotics) clindamycin AdvReac c diff Verified 12/28/23 16:53 morphine AdvReac Nausea & Verified 12/28/23 16:53 Vomiting Surgical - Exam Vital Signs Temp Pulse Resp BP Pulse Ox 97.6 F 81 20 120/48 95 12/28/23 12:48 12/28/23 12:48 12/28/23 12:48 12/28/23 12:48 12/28/23 12:48 General appearance: The patient is alert, oriented, appears in no acute distr ess. HET: Head is normocephalic and atraumatic. Pupils are equal and reactive. Neck: Supple. Heart: Regular. Lungs: Equal expansion, normal respiratory effort. Abdomen: Soft, nontender, nondistended. Extremities: Normal skin color and turgor. Palpable radial pulses. Left upper extremity loop graft without palpable thrill or audible bruit. Neurological: No focal deficits. Strength and sensation are grossly intact. Results - Labs 12/28/23 15:07 12/28/23 15:07 Abnormal Lab Results - Last 24 Hours (Table) 12/28/23 12/28/23 12/28/23 Range/Units 13:50 15:07 15:07 RBC 2.62 L (3.80-5.40) m/uL Hgb 8.5 L (11.4-16.0) gm/dL Hct 25.4 L (34.0-46.0) % RDW 16.6 H (11.5-15.5) % Plt Count 129 L (150-450) k/uL BUN 61 H (7-17) mg/dL Creatinine 4.60 H (0.52-1.04) mg/dL Glucose 109 H (74-99) mg/dL Alkaline Phosphatase 166 H (38-126) U/L Urine Appearance Cloudy H (Clear) Urine Protein 1+ H (Negative) Urine Blood Small H (Negative) Ur Leukocyte Esterase Large H (Negative) Urine RBC 10 H (0-5) /hpf Urine WBC >182 H (0-5) /hpf Urine WBC Clumps Many H (None) /hpf Ur Squamous Epith Cells 7 H (0-4) /hpf Urine Bacteria Occasional H (None) /hpf Diabetes panel 12/28/23 Range/Units 15:07 Sodium 140 (137-145) mmol/L Potassium 5.1 (3.5-5.1) mmol/L Chloride 106 (98-107) mmol/L Carbon Dioxide 23 (22-30) mmol/L BUN 61 H (7-17) mg/dL Creatinine 4.60 H (0.52-1.04) mg/dL Glucose 109 H (74-99) mg/dL Calcium 9.0 (8.4-10.2) mg/dL AST 27 (14-36) U/L ALT 16 (4-34) U/L Alkaline Phosphatase 166 H (38-126) U/L Total Protein 7.6 (6.3-8.2) g/dL Albumin 4.1 (3.5-5.0) g/dL Calcium panel 12/28/23 Range/Units 15:07 Calcium 9.0 (8.4-10.2) mg/dL Albumin 4.1 (3.5-5.0) g/dL Pituitary panel 12/28/23 Range/Units 15:07 Sodium 140 (137-145) mmol/L Potassium 5.1 (3.5-5.1) mmol/L Chloride 106 (98-107) mmol/L Carbon Dioxide 23 (22-30) mmol/L BUN 61 H (7-17) mg/dL Creatinine 4.60 H (0.52-1.04) mg/dL Glucose 109 H (74-99) mg/dL Calcium 9.0 (8.4-10.2) mg/dL Adrenal panel 12/28/23 Range/Units 15:07 Sodium 140 (137-145) mmol/L Potassium 5.1 (3.5-5.1) mmol/L Chloride 106 (98-107) mmol/L Carbon Dioxide 23 (22-30) mmol/L BUN 61 H (7-17) mg/dL Creatinine 4.60 H (0.52-1.04) mg/dL Glucose 109 H (74-99) mg/dL Calcium 9.0 (8.4-10.2) mg/dL Total Bilirubin 0.5 (0.2-1.3) mg/dL AST 27 (14-36) U/L ALT 16 (4-34) U/L Alkaline Phosphatase 166 H (38-126) U/L Total Protein 7.6 (6.3-8.2) g/dL Albumin 4.1 (3.5-5.0) g/dL Assessment and Plan Assessment: 1. Thrombosed left upper extremity loop AV graft 2. End-stage renal disease on hemodialysis Plan: 1. Keep n.p.o. 2. Hold heparin 3. Will plan for fistulogram with possible intervention versus need for tunneled dialysis catheter placement 4. Hemodialysis per recommendations from nephrology Thank you for this consultation, we will continue to follow. The impression and plan of care has been dictated as directed. Dr. Natarajan I performed a history and examination of this patient, discussed the same with the dictator. I agree with the dictator's note ,documented as a scribe. Any additional findings or plans will be noted.
[2023-12-29 08:34] LABS: Basophils # (A) 0.06 X 10*3/uL (0.00-0.10); Eosinophils # (A) 0.18 X 10*3/uL (0.04-0.35); Eosinophils % (A) 2.9 %; HCT 23.3 % (37.2-46.3); HGB 7.3 g/dL (12.0-15.0); Lymphocytes # (A) 0.69 X 10*3/uL (0.90-5.00); MCH 30.8 pg (27.0-32.0); MCHC 31.3 g/dL (32.0-37.0); MCV 98.3 FL (80.0-97.0); Mean Platelet Volume 12.4 FL (9.5-12.2); Monocytes # (A) 0.26 X 10*3/uL (0.20-1.00); Monocytes % (A) 4.1 %; NRBC Per 100 WBC 0 X 10*3/uL (0.00-0.01); Neutrophils # (A) 5.07 X 10*3/uL (1.80-7.70); Neutrophils % (A) 80.5 %; Platelet Count 128 X 10*3/uL (140-440); RBC 2.37 X 10*6/uL (4.10-5.20); RDW 16.4 % (11.5-14.5); WBC 6.29 X 10*3/uL (4.50-10.00)
[2023-12-29 08:55] LABS: ALT 13 U/L (8-44); AST 18 U/L (13-35); Albumin 3.8 g/dL (3.8-4.9); Albumin/Globulin Ratio 1.27 Ratio (1.60-3.17); Alkaline Phosphatase 162 U/L (41-126); BUN/Creat Ratio 12.61 Ratio (12.00-20.00); Blood Urea Nitrogen 61.8 mg/dL (9.0-27.0); Calcium 8.5 mg/dL (8.7-10.3); Carbon Dioxide 22.1 mmol/L (21.6-31.8); Chloride 106 mmol/L (96-109); Glucose 102 mg/dL (70-110); Potassium 5.1 mmol/L (3.5-5.5); Sodium 140 mmol/L (135-145); Total Bilirubin 0.5 mg/dL (0.3-1.2); Total Protein 6.8 g/dL (6.2-8.2)
[2023-12-29] MEDS: SODIUM CHLORIDE 0.9% 500 ML 500 ML IV ONE (09:18)
[2023-12-29] MEDS: fentaNYL (PF) 50 MCG/ML 2 ML AMP IVP ONE (09:33)
[2023-12-29] MEDS: LIDOCAINE 1% INJ 10MG/ML (20 ML MDV) SQ ONE (09:35)
[2023-12-29] MEDS: MIDAZOLAM 2 MG/2 ML VIAL IVP ONE (09:36)
[2023-12-29] MEDS: ALTEPLASE 2 MG VIAL (CATHFLO) IV STA (09:43)
--- NOTE | 2023-12-29 10:24 | P.NPCON ---
History of Present Illness - History of Present Illness 83-year-old female with a past medical history of ESRD on hemodialysis (MWF), hy pertension, dyslipidemia, chronic systolic heart failure with EF 40 to 45%, bioprosthetic aortic valve replacement, hypothyroidism, iron deficiency anemia, type 2 diabetes, GERD presenting with malfunctioning left arm fistula. Patient reports fistula is giving her difficulties in the past and that her last dialysis session was on Thursday (12/24). Patient missed her Thursday (12/27) dialysis session. Patient reports she still makes urine but has decreased output. Status post fistulogram and thrombectomy and angioplasty Past Medical History Past Medical History: Dialysis, Hyperlipidemia, Hypertension Additional Past Medical History / Comment(s): hypothyroidism, chronic back/neck pain-pain rt leg and walks with walker, mitral valve murmur, hemodialysis MWF-av access rt chest, c diff yrs ago when took clindamycin for tooth extraction,UTI,has lung nodules. has bundle block on ekgs, cystitis. controls diabetes with diet. takes carvedilol if Systolic over 150.hasnt needed,. , small open area on coccyx that she normally wears a cushion pad. History of Any Multi-Drug Resistant Organisms: VRE Date of last positivie culture/infection: 03/25/23 MDRO Source:: Urine Past Surgical History: Hysterectomy, Joint Replacement Additional Past Surgical History / Comment(s): neck [id number] surgery, heart aortic valve replacement, rt ureter stent x 6, kristi knee replacements, left forearm graft for Hemodialysis, right subclavian HD cath 11/2022 Past Anesthesia/Blood Transfusion Reactions: No Reported Reaction Additional Past Anesthesia/Blood Transfusion Reaction / Comment(s): states "no problems with intubation but was told by Anesthesia vocal cords are anterior", no problems with prior blood transfusion. adopted Past Psychological History: No Psychological Hx Reported Smoking Status: Never smoker Past Alcohol Use History: None Reported Past Drug Use History: None Reported - Past Family History Family Family Medical History: No Reported History Additional Family Medical History / Comment(s): adopted Medications and Allergies Home Medications Medication Instructions Recorded Confirmed Type Albuterol Inhaler [Ventolin Hfa 2 puff INHALATION RT-Q4H PRN 06/19/21 12/28/23 History Inhaler] Levothyroxine Sodium [Synthroid] 88 mcg PO DAILY 06/19/21 12/28/23 History Omeprazole 40 mg PO DAILY 06/19/21 12/28/23 History Tamsulosin [Flomax] 0.4 mg PO W/SUPPER 02/03/22 12/28/23 History Loratadine [Claritin] 10 mg PO Q2D 07/28/22 12/28/23 History Atorvastatin [Lipitor] 40 mg PO W/SUPPER 09/08/22 12/28/23 History Multivitamins, Thera [Multivitamin 1 tab PO W/SUPPER 10/19/22 12/28/23 History (formulary)] Ferrous Sulfate [Iron (65 MG 325 mg PO BID 12/25/22 12/28/23 History Elemental)] Sevelamer [Renvela] 1,600 mg PO W/SUPPER 12/25/22 12/28/23 History Vitamin B Complex 1 cap PO W/SUPPER 03/10/23 12/28/23 History carvediloL [Coreg] 3.125 mg PO BID-W/MEALS 03/10/23 12/28/23 History Aspirin 81 mg PO DIRECTED 03/27/23 12/28/23 History polyethylene glycoL 3350 [Miralax] 17 gm PO DAILY 03/30/23 12/28/23 History Acetaminophen Tab [Tylenol] 650 mg PO Q4H PRN 12/28/23 12/28/23 History Fluticasone Propionate 110 Mcg 2 puff INHALATION RT-BID PRN 12/28/23 12/28/23 History [Flovent 110 Mcg Inhaler] Fluticasone Propionate [Flonase 1 spray EA NOSTRIL BID PRN 12/28/23 12/28/23 History Allergy Relief] Furosemide [Lasix] 80 mg PO DIRECTED 12/28/23 12/28/23 History HYDROcodone/APAP 10-325MG [[place] 1 tab PO Q6HR PRN 12/28/23 12/28/23 History 10-325] Lactobacillus Rhamnosus GG 1 cap PO W/SUPPER 12/28/23 12/28/23 History [Culturelle] Midodrine [ProAmatine] 5 mg PO TID PRN 12/28/23 12/28/23 History Nystatin 100,000 Unit/gm Powd 1 applic TOPICAL TID PRN 12/28/23 12/28/23 History [Mycostatin Powder] Nystatin 100,000Unit/gm Cream 1 applic TOPICAL BID PRN 12/28/23 12/28/23 History [Mycostatin Cream] Pregabalin [Lyrica] 50 mg PO BID-W/MEALS 12/28/23 12/28/23 History diphenhydrAMINE HCL [Benadryl] 25 mg PO Q6H PRN 12/28/23 12/28/23 History Allergies Allergy/AdvReac Type Severity Reaction Status Date / Time Penicillins Allergy Anaphylaxis Verified 12/28/23 16:53 Sulfa (Sulfonamide Allergy Rash/Hives Verified 12/28/23 16:53 Antibiotics) clindamycin AdvReac c diff Verified 12/28/23 16:53 morphine AdvReac Nausea & Verified 12/28/23 16:53 Vomiting Physical Exam Vitals: Vital Signs Temp Pulse Pulse Resp BP BP Pulse Ox 12/29/23 07:35 115 H 96 12/29/23 07:00 98.3 F 113 H 20 108/61 90 L 12/29/23 01:56 98.0 F 64 16 98/41 93 L 12/28/23 21:31 97.6 F 90 17 115/61 93 L 12/28/23 21:05 83 18 156/74 93 L 12/28/23 20:42 71 18 134/58 99 12/28/23 19:26 75 18 122/48 94 L 12/28/23 12:48 97.6 F 81 20 120/48 95 Intake and Output 12/28/23 12/29/23 12/29/23 22:59 06:59 14:59 Intake Total 100 Balance 100 Intake: IV 100 Other: # Voids 1 6 Weight 88.904 kg Vital signs reviewed General: nontoxic, no distress, appears at stated age Cardiovascular: S1S2 reg, no murmur, no edema Lungs: clear to auscultation bilateral, no rhonchi, no rales, no wheeze, no a ccessory muscle use Abdominal: soft, nontender to palpation, no guarding, no appreciable organomega ly Ext: no gross muscle atrophy, muscle strength muscle strength 5 out of 5 in all 4 extremities, no contractures, unable to palpate thrill in left arm Neuro: CN II-XII grossly intact Psych: Alert, oriented, appropriate affect Results - Lab Results Most recent lab results Calcium 8.5 mg/dL (8.7-10.3) L 12/29/23 04:00 12/30/23 03:25 12/30/23 03:25 Assessment and Plan Assessment: 1. ESRD on MWF schedule, last received dialysis 12/24 2. thrombosed left upper extremity loop AV graft 3. Abnormal UA which showed cloudy urine with large urine leukocyte esterase and greater than 182 urine WBC Plan: Status post thrombectomy medication., will attempt dialysis today. If dialysis is unsuccessful, we will plan for tunneled catheter placement tomorrow (12/29). Hold heparin for potential intervention Thank you for the consultation. We will continue to follow the patient. Agree with the residents assessment and plan.
[2023-12-29] MEDS: IOPAMIDOL-250 100ML BTL INTRAARTER ONE (10:41)
--- NOTE | 2023-12-29 11:10 | P.OP ---
Description of Procedure: Preoperative diagnosis: End-stage renal disease, thrombosed left upper extremity loop forearm graft Postoperative diagnosis: Same Procedure: #1 ultrasound-guided left upper extremity loop AV graft access x 2 Left upper extremity venogram Left upper extremity angiogram via brachial artery Pharmacomechanical thrombectomy with AngioJet Percutaneous transluminal balloon angioplasty 7 x 40 outflow anastomosis Moderate conscious sedation time 71 minutes with personal monitoring certified RN administration and personal hemodynamic monitoring Surgeon: Danya Natarajan D.O. EBL: 10 cc IV fluids: See records Urine output: Not measured Drains: None Complications: None immediately apparent Condition: Stable Operative indication and findings: Patient is a 83-year-old female with end- stage renal disease requiring dialysis via a left upper extremity loop forearm graft, and has had multiple interventions since is placement in December 2022 but has been doing well for the past few months. Recently she went to dialysis on Thursday and they began having trouble, they were able to get a full round of dialysis however she presented yesterday for dialysis and they were unable to access therefore she was sent to the hospital for this. She presents today for fistulogram thrombectomy. She seemingly understands the plan and is willing to proceed. Procedure in detail: Patient was taken to the special suite and placed in supine position. The left upper extremity was prepped and draped in usual sterile fashion. A preprocedure timeout was performed, all parties were in agreement. Using ultrasound, the graft was accessed first in the outflow direction. Seldinger technique was used to place a 6 German sheath. A permanent image had been stored. Catheters and wires were used to access the outflow vein. A central venogram was performed showing no obvious areas of stenosis. There were significant small outflow veins without any large connection visualized after the median cubital vein. Through the catheter, tPA was instilled and left to dwell. Attention was then turned towards the inflow. Again an ultrasound was utilized, the graft was accessed and a 6 German sheath was placed. Catheters and wires were used to access the brachial artery. An angiogram was performed showing patent brachial artery. The tPA was then instilled and left to dwell through the remainder of the catheter. Attention was then turned back to the outflow where the suction thrombectomy was performed with multiple passes. A repeat image was performed showing improvement without any residual thrombus. There was evidence of mild stenosis at the outflow therefore an 7 x 40 balloon was utilized. There was improvement of waist, there was a repeat image showing improvement however no inline flow through the graft. Attention was then turned towards the inflow, the thrombectomy catheter was passed multiple times. There was improvement however no great thrill or pulse through the graft therefore at that time a wire and catheter access again in the inflow direction, the proximal area was ballooned still utilizing a 7 x 40 balloon at lower pressures. This resulted in improvement of the flow through the graft with pulsatile nature however still soft. There appeared to be flow through the graft however outflow veins appeared very small without any obvious areas of stenosis. Due to this the plan was to conclude at this time and attempt for dialysis via the fistula. If this is unsuccessful, we will plan for a tunneled catheter placement. Catheters and wires were then removed. [id number] sutures were placed and the sheaths were removed. Manual pressure was held until hemostasis is adequate. The patient was allowed to awaken and transferred to recovery in stable condition.
[2023-12-29] MEDS: LORATADINE 10 MG TAB PO SCH (11:37)
[2023-12-29 11:43] LABS: Glucose,Whole Blood 105 mg/dL (70-110)
--- NOTE | 2023-12-29 13:30 | P.PN ---
Subjective Progress Note Date: 12/29/23 Hospital Course Patient is a 83-year-old female with a past medical history of ESRD on hemodialysis, hypertension, dyslipidemia, chronic heart failure with EF of 40 to 45%, bioprosthetic aortic valve replacement, hypothyroidism, iron deficiency anemia, type 2 diabetes mellitus, GERD who presents to the ED with left arm graft was malfunctioning due to thrombosis. Patient only missed 1 session of dialysis. Patient was admitted to be evaluated by vascular surgery. Patient had angiogram of the AV graft with thrombectomy and angioplasty. Patient seen today. Patient is currently on dialysis and per dialysis nurse the graft is working fine. Patient herself had no acute complaints. She did say that she is supposed to get her right kidney and right ureter removed tomorrow. 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 at dinnertime Type 2 diabetes mellitus Diet controlled Sliding scale insulin History of recurrent UTIs Will resume Keflex prophylactically until started by her urologist Per patient she is supposed to get a right nephrectomy to prevent recurrent UTIs. This surgery was scheduled for tomorrow. I spoke with the son who said the surgery will be postponed. Chronic: hypertension dyslipidemia chronic systolic heart failure with EF 40 to 45% bioprosthetic aortic valve replacement hypothyroidism iron deficiency anemia GERD Chronic pain-[place] 10 every 6 hours, monitor for sedation -Home medications restarted DVT prophylaxis: Subcu heparin Objective - Vital Signs Vital signs: Vital Signs Temp 98.3 F 12/29/23 11:56 Pulse 101 H 12/29/23 11:25 Resp 20 12/29/23 11:25 BP 151/65 12/29/23 11:25 Pulse Ox 96 12/29/23 11:25 FiO2 Intake & Output 12/28/23 12/29/23 12/29/23 18:59 06:59 18:59 Intake Total 100 Balance 100 Weight 88.904 kg 88.904 kg Intake: IV 100 Other: # Voids 6 - Labs CBC & Chem 7: 12/29/23 04:00 12/29/23 04:00 Labs: Abnormal Lab Results - Last 24 Hours (Table) 12/28/23 12/28/23 12/28/23 Range/Units 13:50 15:07 15:07 RBC 2.62 L (3.80-5.40) m/uL Hgb 8.5 L (11.4-16.0) gm/dL Hct 25.4 L (34.0-46.0) % MCV (80.0-97.0) FL MCHC (32.0-37.0) g/dL RDW 16.6 H (11.5-15.5) % Plt Count 129 L (150-450) k/uL MPV (9.5-12.2) FL Lymphocytes # (0.90-5.00) X 10*3/uL BUN 61 H (7-17) mg/dL Creatinine 4.60 H (0.52-1.04) mg/dL Est GFR (CKD-EPI) (>=60) Glucose 109 H (74-99) mg/dL Calcium (8.7-10.3) mg/dL Alkaline Phosphatase 166 H (38-126) U/L Albumin/Globulin Ratio (1.60-3.17) Ratio Urine Appearance Cloudy H (Clear) Urine Protein 1+ H (Negative) Urine Blood Small H (Negative) Ur Leukocyte Esterase Large H (Negative) Urine RBC 10 H (0-5) /hpf Urine WBC >182 H (0-5) /hpf Urine WBC Clumps Many H (None) /hpf Ur Squamous Epith Cells 7 H (0-4) /hpf Urine Bacteria Occasional H (None) /hpf 12/29/23 12/29/23 Range/Units 04:00 04:00 RBC 2.37 L (3.80-5.40) m/uL Hgb 7.3 L (11.4-16.0) gm/dL Hct 23.3 L (34.0-46.0) % MCV 98.3 H (80.0-97.0) FL MCHC 31.3 L (32.0-37.0) g/dL RDW 16.4 H (11.5-15.5) % Plt Count 128 L (150-450) k/uL MPV 12.4 H (9.5-12.2) FL Lymphocytes # 0.69 L (0.90-5.00) X 10*3/uL BUN 61.8 H (7-17) mg/dL Creatinine 4.9 H (0.52-1.04) mg/dL Est GFR (CKD-EPI) 8 L (>=60) Glucose (74-99) mg/dL Calcium 8.5 L (8.7-10.3) mg/dL Alkaline Phosphatase 162 H (38-126) U/L Albumin/Globulin Ratio 1.27 L (1.60-3.17) Ratio Urine Appearance (Clear) Urine Protein (Negative) Urine Blood (Negative) Ur Leukocyte Esterase (Negative) Urine RBC (0-5) /hpf Urine WBC (0-5) /hpf Urine WBC Clumps (None) /hpf Ur Squamous Epith Cells (0-4) /hpf Urine Bacteria (None) /hpf
[2023-12-29] MEDS: CEPHALEXIN 500 MG CAP PO SCH (15:43)
[2023-12-29] MEDS: FUROSEMIDE 80 MG TAB PO SCH (15:43)
[2023-12-29] MEDS: SENNOSIDES 8.6 MG TAB PO PRN (15:46)
[2023-12-29 17:01] LABS: Glucose,Whole Blood 94 mg/dL (70-110)
[2023-12-29] MEDS: ACETAMINOPHEN TAB 325 MG TAB PO PRN (19:26)
[2023-12-29] MEDS: MIDODRINE 5 MG TAB PO PRN (19:48)
[2023-12-29 21:19] LABS: Glucose,Whole Blood 110 mg/dL (70-110)
[2023-12-30 06:15] LABS: Glucose,Whole Blood 107 mg/dL (70-110)
[2023-12-30 08:42] LABS: Basophils # (A) 0.03 X 10*3/uL (0.00-0.10); Basophils % (A) 0.7 %; Eosinophils # (A) 0 X 10*3/uL (0.04-0.35); Eosinophils % (A) 0 %; HCT 23.3 % (37.2-46.3); HGB 7.6 g/dL (12.0-15.0); Lymphocytes # (A) 0.77 X 10*3/uL (0.90-5.00); Lymphocytes % (A) 17.6 %; MCH 31.5 pg (27.0-32.0); MCHC 32.6 g/dL (32.0-37.0); MCV 96.7 FL (80.0-97.0); Mean Platelet Volume 12.8 FL (9.5-12.2); Monocytes # (A) 0.41 X 10*3/uL (0.20-1.00); Monocytes % (A) 9.4 %; NRBC Per 100 WBC 0 X 10*3/uL (0.00-0.01); Neutrophils # (A) 3.15 X 10*3/uL (1.80-7.70); Neutrophils % (A) 71.8 %; Platelet Count 100 X 10*3/uL (140-440); RBC 2.41 X 10*6/uL (4.10-5.20); RDW 16.3 % (11.5-14.5); WBC 4.38 X 10*3/uL (4.50-10.00)
[2023-12-30] MEDS ORDERED: CEPHALEXIN 500 MG CAP PO SCH (09:00)
[2023-12-30] MEDS: NITROFURANTOIN MONOHYD/M-CRYST 100 MG CAP PO SCH (09:31)
[2023-12-30 09:34] LABS: BUN/Creat Ratio 10.26 Ratio (12.00-20.00); Blood Urea Nitrogen 34.9 mg/dL (9.0-27.0); Calcium 8.4 mg/dL (8.7-10.3); Carbon Dioxide 25.9 mmol/L (21.6-31.8); Chloride 97 mmol/L (96-109); Glucose 95 mg/dL (70-110); Sodium 136 mmol/L (135-145)
--- NOTE | 2023-12-30 11:45 | P.PN ---
Subjective Patient seen at bedside. No significant overnight events. Had succesful dialysis. Objective - Vital Signs Vital signs: Vital Signs Temp 98.5 F 12/30/23 07:00 Pulse 70 12/30/23 07:00 Resp 18 12/30/23 07:00 BP 102/46 12/30/23 07:00 Pulse Ox 92 L 12/30/23 07:00 FiO2 Intake & Output 12/29/23 12/30/23 12/30/23 18:59 06:59 18:59 Intake Total 618 600 Output Total 5200 Balance -4582 600 Intake: IV 100 Oral 118 600 Hemodialysis 400 Output: Hemodialysis 2800 Hemodialysis Net Amount 2400 Other: Voiding Method Toilet # Voids 1 2 - Exam Vital signs reviewed General: nontoxic, no distress, appears at stated age Cardiovascular: S1S2 reg, no murmur, no edema Lungs: clear to auscultation bilateral, no rhonchi, no rales, no wheeze, no a ccessory muscle use Abdominal: soft, nontender to palpation, no guarding, no appreciable organomega ly Ext: no gross muscle atrophy, muscle strength muscle strength 5 out of 5 in all 4 extremities, no contractures, unable to palpate thrill in left arm Neuro: CN II-XII grossly intact Psych: Alert, oriented, appropriate affect - Labs CBC & Chem 7: 12/30/23 03:25 12/31/23 03:44 Labs: Abnormal Lab Results - Last 24 Hours (Table) 12/30/23 12/30/23 Range/Units 03:25 03:25 WBC 4.38 L (4.50-10.00) X 10*3/uL RBC 2.41 L (4.10-5.20) X 10*6/uL Hgb 7.6 L (12.0-15.0) g/dL Hct 23.3 L (37.2-46.3) % RDW 16.3 H (11.5-14.5) % Plt Count 100 L (140-440) X 10*3/uL MPV 12.8 H (9.5-12.2) FL Lymphocytes # 0.77 L (0.90-5.00) X 10*3/uL Eosinophils # 0 L (0.04-0.35) X 10*3/uL Anion Gap 13.10 H (4.00-12.00) mmol/L BUN 34.9 H (9.0-27.0) mg/dL Creatinine 3.4 H (0.6-1.5) mg/dL Est GFR (CKD-EPI) 13 L (>=60) BUN/Creatinine Ratio 10.26 L (12.00-20.00) Ratio Calcium 8.4 L (8.7-10.3) mg/dL Microbiology - Last 24 Hours (Table) 12/28/23 19:00 Urine Culture - Preliminary Urine,Clean Catch Group D Enterococcus Assessment and Plan Assessment: 1. ESRD on MWF schedule, L arm AV graft, 2. thrombosed left upper extremity loop AV graft, status post thrombectomy 3. UTI, preliminary urine culture is positive for group D Enterococcus Plan: Status post fistulogram and thrombectomy, dialysis was successful yesterday () Follow-up on final urine culture results Agree with resident's findings assessment and plan.
--- NOTE | 2023-12-30 12:11 | P.PN ---
Subjective Progress Note Date: 12/30/23 Principal diagnosis: Thrombosed AV graft Patient is seen and examined today as a follow-up. Yesterday patient underwent venogram with Pharmamechanical thrombectomy percutaneous transluminal balloon angioplasty. She was able to get dialysis yesterday and tolerated it well. Edith lysis nurse notes states graft worked well without any complications. Patient is scheduled to undergo hemodialysis again today. Objective - Vital Signs Vital signs: Vital Signs Temp 98.7 F 12/30/23 02:36 Pulse 84 12/30/23 02:36 Resp 19 12/30/23 02:36 BP 87/47 12/30/23 02:36 Pulse Ox 94 L 12/30/23 02:36 FiO2 Intake & Output 12/29/23 12/30/23 12/30/23 18:59 06:59 18:59 Intake Total 618 Output Total 5200 Balance -4582 Intake: IV 100 Oral 118 Hemodialysis 400 Output: Hemodialysis 2800 Hemodialysis Net Amount 2400 Other: Voiding Method Toilet # Voids 1 2 - Exam General appearance: The patient is alert, oriented, appears in no acute distress. HET: Head is normocephalic and atraumatic. Pupils are equal and reactive. Neck: Supple. Heart: Regular. Lungs: Equal expansion, normal respiratory effort. Abdomen: Soft, nontender, nondistended. Extremities: Normal skin color and turgor. Left forearm with loop graft with audible bruit. Neurological: No focal deficits. Strength and sensation are grossly intact. - Labs CBC & Chem 7: 12/30/23 03:25 12/30/23 03:25 Labs: Abnormal Lab Results - Last 24 Hours (Table) 12/29/23 12/29/23 Range/Units 04:00 04:00 RBC 2.37 L (4.10-5.20) X 10*6/uL Hgb 7.3 L (12.0-15.0) g/dL Hct 23.3 L (37.2-46.3) % MCV 98.3 H (80.0-97.0) FL MCHC 31.3 L (32.0-37.0) g/dL RDW 16.4 H (11.5-14.5) % Plt Count 128 L (140-440) X 10*3/uL MPV 12.4 H (9.5-12.2) FL Lymphocytes # 0.69 L (0.90-5.00) X 10*3/uL BUN 61.8 H (9.0-27.0) mg/dL Creatinine 4.9 H (0.6-1.5) mg/dL Est GFR (CKD-EPI) 8 L (>=60) Calcium 8.5 L (8.7-10.3) mg/dL Alkaline Phosphatase 162 H (41-126) U/L Albumin/Globulin Ratio 1.27 L (1.60-3.17) Ratio Microbiology - Last 24 Hours (Table) 12/28/23 19:00 Urine Culture - Preliminary Urine,Clean Catch Group D Enterococcus Assessment and Plan Assessment: 1. Thrombosed left upper extremity loop AV graft status post pharmacomechanical thrombectomy and percutaneous transluminal balloon angioplasty 2. End-stage renal disease on hemodialysis Plan: 1. Hemodialysis per recommendations from nephrology 2. Patient to follow-up with Dr. Griggs in 2 weeks Thank you for this consultation, we will patient is cleared from vascular surgery for discharge. We will sign off at this time. The impression and plan of care has been dictated as directed. Dr. Natarajan I performed a history and examination of this patient, discussed the same with the dictator. I agree with the dictator's note ,documented as a scribe. Any additional findings or plans will be noted.
--- NOTE | 2023-12-30 12:58 | P.PN ---
Subjective Progress Note Date: 12/30/23 Hospital Course Patient is a 83-year-old female with a past medical history of ESRD on hemodialysis, hypertension, dyslipidemia, chronic heart failure with EF of 40 to 45%, bioprosthetic aortic valve replacement, hypothyroidism, iron deficiency anemia, type 2 diabetes mellitus, GERD who presents to the ED with left arm graft was malfunctioning due to thrombosis. Patient only missed 1 session of dialysis. Patient was admitted to be evaluated by vascular surgery. Patient had angiogram of the AV graft with thrombectomy and angioplasty. Patient seen today. Patient is currently on dialysis and per dialysis nurse the graft is working fine. Patient herself had no acute complaints. She did say that she is supposed to get her right kidney and right ureter removed tomorrow. 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 at dinnertime Type 2 diabetes mellitus Diet controlled Sliding scale insulin Recurrent UTIs Patient was on Keflex to prevent UTIs prophylactically. On this admission urine culture growing group D Enterococcus so I will switch patient to Macrobid. I called micro lab who said the results for sensitivities will be back tonight. Chronic: hypertension dyslipidemia chronic systolic heart failure with EF 40 to 45% bioprosthetic aortic valve replacement hypothyroidism iron deficiency anemia GERD Chronic pain-[place] 10 every 6 hours, monitor for sedation -Home medications restarted -Hemoglobin is 7.6 this morning. Stable DVT prophylaxis: Subcu heparin Anticipate patient will be ready for discharge tomorrow Objective - Vital Signs Vital signs: Vital Signs Temp 98.5 F 12/30/23 07:00 Pulse 70 12/30/23 07:00 Resp 18 12/30/23 07:00 BP 102/46 12/30/23 07:00 Pulse Ox 92 L 12/30/23 07:00 FiO2 Intake & Output 12/29/23 12/30/23 12/30/23 18:59 06:59 18:59 Intake Total 618 600 Output Total 5200 Balance -4582 600 Intake: IV 100 Oral 118 600 Hemodialysis 400 Output: Hemodialysis 2800 Hemodialysis Net Amount 2400 Other: Voiding Method Toilet # Voids 1 2 - Labs CBC & Chem 7: 12/30/23 03:25 12/30/23 03:25 Labs: Abnormal Lab Results - Last 24 Hours (Table) 12/30/23 12/30/23 Range/Units 03:25 03:25 WBC 4.38 L (4.50-10.00) X 10*3/uL RBC 2.41 L (4.10-5.20) X 10*6/uL Hgb 7.6 L (12.0-15.0) g/dL Hct 23.3 L (37.2-46.3) % RDW 16.3 H (11.5-14.5) % Plt Count 100 L (140-440) X 10*3/uL MPV 12.8 H (9.5-12.2) FL Lymphocytes # 0.77 L (0.90-5.00) X 10*3/uL Eosinophils # 0 L (0.04-0.35) X 10*3/uL Anion Gap 13.10 H (4.00-12.00) mmol/L BUN 34.9 H (9.0-27.0) mg/dL Creatinine 3.4 H (0.6-1.5) mg/dL Est GFR (CKD-EPI) 13 L (>=60) BUN/Creatinine Ratio 10.26 L (12.00-20.00) Ratio Calcium 8.4 L (8.7-10.3) mg/dL Microbiology - Last 24 Hours (Table) 12/28/23 19:00 Urine Culture - Preliminary Urine,Clean Catch Group D Enterococcus
[2023-12-30 13:02] LABS: Glucose,Whole Blood 101 mg/dL (70-110)
[2023-12-30] MEDS: ALBUTEROL NEBULIZED 2.5 MG/3 ML INHALATION PRN (13:46)
[2023-12-30 17:29] LABS: Glucose,Whole Blood 85 mg/dL (70-110)
[2023-12-30 20:39] LABS: Glucose,Whole Blood 89 mg/dL (70-110)
[2023-12-30] MEDS ORDERED: ALBUTEROL HFA INHALER INHALATION PRN (21:54)
[2023-12-31 01:41] VITALS: RESP 18
[2023-12-31 03:43] LABS: Hepatitis B Surface Antigen Nonreactive (Nonreactive)
[2023-12-31 06:12] LABS: Glucose,Whole Blood 114 mg/dL (70-110)
[2023-12-31 08:13] VITALS: BP 92/48; PULSE 86; TEMP 98.5
[2023-12-31 08:57] LABS: BUN/Creat Ratio 9.28 Ratio (12.00-20.00); Blood Urea Nitrogen 23.2 mg/dL (9.0-27.0); Calcium 8.1 mg/dL (8.7-10.3); Carbon Dioxide 27.5 mmol/L (21.6-31.8); Chloride 95 mmol/L (96-109); Glucose 100 mg/dL (70-110); Potassium 3.7 mmol/L (3.5-5.5); Sodium 133 mmol/L (135-145)
--- NOTE | 2023-12-31 11:29 | P.DS ---
Providers Date of admission: 12/28/23 15:51 Attending physician: Fan Abdi Consults: 12/28/23 16:14 Consult Physician Routine Consulting Provider: Marisa Rocha Consult Reason/Comments: CKD on dialysis Do you want consulting provider notified?: Yes, Notify in am Primary care physician: Naeem Herr Hospital Course: Discharge Diagnosis: Malfunctioning AV graft End-stage renal disease on hemodialysis Anemia of chronic kidney disease Mild thrombocytopenia Type 2 diabetes mellitus Recurrent UTI hypertension dyslipidemia chronic systolic heart failure with EF 40 to 45% bioprosthetic aortic valve replacement hypothyroidism iron deficiency anemia GERD Hospital Course: Patient is a 83-year-old female with a past medical history of ESRD on h emodialysis, hypertension, dyslipidemia, chronic heart failure with EF of 40 to 45%, bioprosthetic aortic valve replacement, hypothyroidism, iron deficiency anemia, type 2 diabetes mellitus, GERD who presents to the ED with left arm graft was malfunctioning due to thrombosis. Patient only missed 1 session of dialysis. Patient was admitted to be evaluated by vascular surgery. Patient had angiogram of the AV graft with thrombectomy and angioplasty. Patient then had 2 sessions of dialysis and the AV graft was working fine. Patient was cleared for discharge by vascular surgery. During admission patient was complaining of a runny nose and feeling weak. She was tested for COVID-19 and found to be positive. No treatment needed as patient is on room air. Patient was told to do supportive care at home. Patient also did have a complicated hospital course due to anemia. At the time of discharge her hemoglobin was also stable. She also did have a UTI. Patient does have a history of recurrent UTIs. Her urine culture grew group D Enterococcus sensitive to Macrobid. I will discharge the patient on a 5-day course of Macrobid. Patient does follow- up with a urologist for the recurrent UTIs. Patient was told to follow-up with her urologist. Patient and son also told me that her urologist plans to take out her right kidney due to the recurrent UTIs. 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 Patient Condition at Discharge: Stable Plan - Discharge Summary New Discharge Prescriptions: New Nitrofurantoin Monohyd/M-Cryst [Macrobid] 100 mg PO BID 5 Days #10 cap Continue Omeprazole 40 mg PO DAILY Multivitamins, Thera [Multivitamin (formulary)] 1 tab PO W/SUPPER Ferrous Sulfate [Iron (65 MG Elemental)] 325 mg PO BID Sevelamer [Renvela] 1,600 mg PO W/SUPPER Vitamin B Complex 1 cap PO W/SUPPER polyethylene glycoL 3350 [Miralax] 17 gm PO DAILY Fluticasone Propionate [Flonase Allergy Relief] 1 spray EA NOSTRIL BID PRN PRN Reason: Congestion Fluticasone Propionate 110 Mcg [Flovent 110 Mcg Inhaler] 2 puff INHALATION RT-BID PRN PRN Reason: Shortness Of Breath HYDROcodone/APAP 10-325MG [[place] 10-325] 1 tab PO Q6HR PRN PRN Reason: Pain Nystatin 100,000 Unit/gm Powd [Mycostatin Powder] 1 applic TOPICAL TID PRN PRN Reason: Rash Pregabalin [Lyrica] 50 mg PO BID-W/MEALS Furosemide [Lasix] 80 mg PO DIRECTED Midodrine [ProAmatine] 5 mg PO TID PRN PRN Reason: Blood Pressure - Low Albuterol Inhaler [Ventolin Hfa Inhaler] 2 puff INHALATION RT-Q4H PRN PRN Reason: Shortness Of Breath Levothyroxine Sodium [Synthroid] 88 mcg PO DAILY Tamsulosin [Flomax] 0.4 mg PO W/SUPPER Loratadine [Claritin] 10 mg PO Q2D Atorvastatin [Lipitor] 40 mg PO W/SUPPER carvediloL [Coreg] 3.125 mg PO BID-W/MEALS Aspirin 81 mg PO DIRECTED Acetaminophen Tab [Tylenol] 650 mg PO Q4H PRN PRN Reason: Pain Or Fever > 100.5 diphenhydrAMINE HCL [Benadryl] 25 mg PO Q6H PRN PRN Reason: Allergy Symptoms Discontinued Lactobacillus Rhamnosus GG [Culturelle] 1 cap PO W/SUPPER Nystatin 100,000Unit/gm Cream [Mycostatin Cream] 1 applic TOPICAL BID PRN PRN Reason: Rash Discharge Medication List Albuterol Inhaler [Ventolin Hfa Inhaler] 2 puff INHALATION RT-Q4H PRN 06/19/21 [History] Levothyroxine Sodium [Synthroid] 88 mcg PO DAILY 06/19/21 [History] Omeprazole 40 mg PO DAILY 06/19/21 [History] Tamsulosin [Flomax] 0.4 mg PO W/SUPPER 02/03/22 [History] Loratadine [Claritin] 10 mg PO Q2D 07/28/22 [History] Atorvastatin [Lipitor] 40 mg PO W/SUPPER 09/08/22 [History] Multivitamins, Thera [Multivitamin (formulary)] 1 tab PO W/SUPPER 10/19/22 [History] Ferrous Sulfate [Iron (65 MG Elemental)] 325 mg PO BID 12/25/22 [History] Sevelamer [Renvela] 1,600 mg PO W/SUPPER 12/25/22 [History] Vitamin B Complex 1 cap PO W/SUPPER 03/10/23 [History] carvediloL [Coreg] 3.125 mg PO BID-W/MEALS 03/10/23 [History] Aspirin 81 mg PO DIRECTED 03/27/23 [History] polyethylene glycoL 3350 [Miralax] 17 gm PO DAILY 03/30/23 [History] Acetaminophen Tab [Tylenol] 650 mg PO Q4H PRN 12/28/23 [History] Fluticasone Propionate 110 Mcg [Flovent 110 Mcg Inhaler] 2 puff INHALATION RT- BID PRN 12/28/23 [History] Fluticasone Propionate [Flonase Allergy Relief] 1 spray EA NOSTRIL BID PRN 12/28/23 [History] Furosemide [Lasix] 80 mg PO DIRECTED 12/28/23 [History] HYDROcodone/APAP 10-325MG [[place] 10-325] 1 tab PO Q6HR PRN 12/28/23 [History] Midodrine [ProAmatine] 5 mg PO TID PRN 12/28/23 [History] Nystatin 100,000 Unit/gm Powd [Mycostatin Powder] 1 applic TOPICAL TID PRN 12/28/23 [History] Pregabalin [Lyrica] 50 mg PO BID-W/MEALS 12/28/23 [History] diphenhydrAMINE HCL [Benadryl] 25 mg PO Q6H PRN 12/28/23 [History] Nitrofurantoin Monohyd/M-Cryst [Macrobid] 100 mg PO BID 5 Days #10 cap 12/31/23 [Rx] Follow up Appointment(s)/Referral(s): Naeem Herr DO [Primary Care Provider] - 1-2 days Discharge Disposition: HOME WITH HOME HEALTH SERVICES
--- NOTE | 2023-12-31 12:24 | P.PN ---
Subjective patient is seen for follow-up for end-stage renal disease. Patient tested positive for COVID-19. She is complaining of feeling weak. Patient is tolerating oral intake. Objective - Vital Signs Vital signs: Vital Signs Temp 98.5 F 12/31/23 07:00 Pulse 86 12/31/23 07:00 Resp 18 12/31/23 07:00 BP 92/48 12/31/23 07:00 Pulse Ox 93 L 12/31/23 10:18 FiO2 Intake & Output 12/30/23 12/31/23 12/31/23 18:59 06:59 18:59 Intake Total 600 1160 118 Output Total 1400 Balance 600 -240 118 Intake: Oral 600 760 118 Hemodialysis 400 Output: Hemodialysis 900 Hemodialysis Net Amount 500 Other: # Voids 4 3 - Exam patient is awake, comfortable, no acute distress. Examination of the legs shows no significant edema Patient is moving all 4 extremities Alert oriented 3 - Labs CBC & Chem 7: 12/30/23 03:25 12/31/23 03:44 Labs: Abnormal Lab Results - Last 24 Hours (Table) 12/30/23 12/30/23 12/31/23 Range/Units 03:25 14:03 03:44 Sodium 133 L (135-145) mmol/L Chloride 95 L (96-109) mmol/L Creatinine 2.5 H (0.6-1.5) mg/dL Est GFR (CKD-EPI) 19 L (>=60) BUN/Creatinine Ratio 9.28 L (12.00-20.00) Ratio POC Glucose (mg/dL) (70-110) mg/dL Calcium 8.1 L (8.7-10.3) mg/dL Hep Bs Antibody A (Negative) SARS-CoV-2 (PCR) Detected A (Not Detectd) 12/31/23 Range/Units 06:11 Sodium (135-145) mmol/L Chloride (96-109) mmol/L Creatinine (0.6-1.5) mg/dL Est GFR (CKD-EPI) (>=60) BUN/Creatinine Ratio (12.00-20.00) Ratio POC Glucose (mg/dL) 114 H (70-110) mg/dL Calcium (8.7-10.3) mg/dL Hep Bs Antibody (Negative) SARS-CoV-2 (PCR) (Not Detectd) Microbiology - Last 24 Hours (Table) 12/28/23 19:00 Urine Culture - Final Urine,Clean Catch Enterococcus faecium VRE Assessment and Plan Assessment: 1. ESRD on MWF schedule, 2. 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 Abnormal UA which showed cloudy urine with large urine leukocyte esterase and greater than 182 urine WBC 4. COVID-19 infection Plan: hemodialysis in a.m. if patient is not discharged otherwise she can have her hemodialysis as outpatient tomorrow.
--- NOTE | 2024-01-13 22:33 | IR ---
EXAMINATION TYPE: IR fistula/abscess/sinus tract DATE OF EXAM: 12/29/2023 10:55 AM COMPARISON: Pre Operative Images if available both CT/MRI or plain film CLINICAL INDICATION: Female, 83 years old with history of thrombosed AV fistula, 16.1min fluoro, 10.2 Gycm2; TECHNIQUE: IR fistula/abscess/sinus tract, multiple fluoroscopic images provided for procedure. Total fluoroscopy time: Not reported seconds Total submitted images to PACS: [id number] DAP: Not reported mGym2 Gycm2 uGym2 cGycm2 or equivalent. IMPRESSION: 1. Report was generated for administrative purposes only. 2. Please see the operative/procedural note for further details. [facility], , 01/13/2024 10:30 PM
== END 2023-12-31 12:37 | disposition home health service (06) ==
LOC: EC 12:35 → 6NMEDSUR 15:51
PROVIDERS: ADMIT Student in an Organized Health Care Education/Training Program; ATTEND Student in an Organized Health Care Education/Training Program
DX: T82.868A Thrombosis due to vascular prosthetic devices, implants and grafts, initial encounter (principal); Y82.8 Other medical devices associated with adverse incidents; I13.2 Hypertensive heart and chronic kidney disease with heart failure and with stage 5 chronic kidney disease, or end stage renal disease; I50.22 Chronic systolic (congestive) heart failure; N18.6 End stage renal disease; N39.0 Urinary tract infection, site not specified; E11.22 Type 2 diabetes mellitus with diabetic chronic kidney disease; K21.9 Gastro-esophageal reflux disease without esophagitis; E78.5 Hyperlipidemia, unspecified; E03.9 Hypothyroidism, unspecified; D69.6 Thrombocytopenia, unspecified; D63.1 Anemia in chronic kidney disease; M89.8X9 Other specified disorders of bone, unspecified site; G89.29 Other chronic pain; U07.1 COVID-19; Z87.440 Personal history of urinary (tract) infections; Z95.3 Presence of xenogenic heart valve; Z99.2 Dependence on renal dialysis; Z90.5 Acquired absence of kidney; Z79.890 Hormone replacement therapy; Z79.899 Other long term (current) drug therapy; Z88.0 Allergy status to penicillin; Z88.1 Allergy status to other antibiotic agents; Z88.2 Allergy status to sulfonamides; Z88.5 Allergy status to narcotic agent
CPT/HCPCS: 36415; 36905; 76937; 80048; 80053; 81001; 83036; 85025; 85610; 85730; 86706; 87077; 87086; 87186; 87340; 87636; 90935; 94640; 96372; 99284

== ENCOUNTER → 2024-02-15 | Outpatient (CLI) | payer MEDICARE, BC ==
--- NOTE | 2024-02-15 10:47 | CT ---
EXAMINATION TYPE: CT chest wo con CT DLP: 369.2 mGycm, Automated exposure control for dose reduction was used. DATE OF EXAM: 02/15/2024 10:32 AM COMPARISON: Chest radiograph 03/11/2023, CT chest 02/03/2023, 08/21/2020, PET CT 02/21/2022 CLINICAL INDICATION:Female, 83 years old with history of R91.8 Lung nodule; PHH, low back pain xyears . no hx of back sx TECHNIQUE: Multiple axial images were obtained through the chest without IV contrast. Lack of IV or o ral contrast limits evaluation of solid and hollow organ viscera. . Coronal and sagittal reformats re viewed. FINDINGS: LUNGS/ PLEURA: No pleural effusion, pneumothorax, focal consolidation. Few scattered stable pulmonary nodules with exams including lateral right upper lobe 3.7 mm pulmonary nodule (series 4, image 20), posterior superior segment right lower lobe 3.4 mm pulmonary nodule (series 4, image 23), medial rig ht lower lobe 10 mm pulmonary nodule (series 4, image 34), and medial left lower lobe 8 mm pulmonary nodule (series 4, image 38). No new or enlarging pulmonary nodules. AIRWAY: Patent and unremarkable.. HEART: Postsurgical changes of the aortic valve. Dense mitral annular calcifications. Moderate to sev ere coronary artery calcifications.. The heart is moderately enlarged. No pericardial effusion. MEDIASTINUM: No gross evidence of adenopathy. VASCULATURE: No thoracic aortic aneurysm. Bovine aortic arch. Mild atherosclerotic calcification of the aorta and its branches. Prominence of the pulmonary arteries which can be seen with pulmonary art erial hypertension. MUSCULOSKELETAL: No acute osseous abnormalities. DISH of the thoracic spine. SOFT TISSUES/LYMPH NODES: Unremarkable. LOWER NECK: No significant findings. UPPER ABDOMEN: Nodular contour to the liver redemonstrated consistent with cirrhosis. Enlarged spleen measuring 15.8 cm in AP dimension. IMPRESSION: 1. Stable few scattered pulmonary nodules back to 2020 exam. Probably benign due to stability. No new or enlarging pulmonary nodules. 2. Hepatic cirrhosis. 3. Splenomegaly. [facility], , 02/15/2024 10:44 AM
== END | disposition home or self-care (01) ==
LOC: RADCTMAIN 08:55
PROVIDERS: ATTEND Internal Medicine
DX: R91.8 Other nonspecific abnormal finding of lung field (principal); R16.1 Splenomegaly, not elsewhere classified; K74.60 Unspecified cirrhosis of liver
CPT/HCPCS: 71250